=== PATIENT | male | born 1935 | race Caucasian/White ===

== ENCOUNTER 2019-12-29 05:56 | Inpatient (IN) | payer MEDICARE, BC ==
[~2019-12-29] VITALS: Ht 180.3 cm; Wt 100.0 kg
[2019-12-29] MEDS ORDERED: FINA5TAB2 PO (06:30)
[2019-12-29] MEDS ORDERED: CENT1TAB PO (06:30)
[2019-12-29] MEDS ORDERED: PREG100CA PO (06:30)
[2019-12-29] MEDS ORDERED: METO1TAB7 PO (06:30)
[2019-12-29] MEDS ORDERED: ASPI81TA86 PO (06:30)
[2019-12-29] MEDS ORDERED: ALBU83IN NEB (06:30)
[2019-12-29] MEDS ORDERED: ELIQ2.5T PO (06:30)
[2019-12-29] MEDS ORDERED: FURO20TA2 PO (06:30)
[2019-12-29] MEDS ORDERED: LEVO112T2 PO (06:30)
[2019-12-29] MEDS ORDERED: ALLO10TA PO (06:30)
[2019-12-29] MEDS ORDERED: KLOR10TA76 PO (06:30)
[2019-12-29] MEDS ORDERED: IRBE75TA4 PO (06:30)
[2019-12-29] MEDS ORDERED: SIMV20TA22 PO (06:30)
[2019-12-29 07:16] LABS: BASO # 0.1 10^3/uL (0.0-0.2); BASO % 0.3 % (0.0-1.0); EOS # 0.1 10^3/uL (0.0-0.5); EOS % 0.4 % (0.0-3.0); HEMATOCRIT 34.9 % (42.0-52.0); HEMOGLOBIN 11.5 g/dl (13.5-17.5); LYMPH # 1.3 10^3/uL (1.5-5.0); LYMPH % 7.2 % (24.0-44.0); MEAN CORPUSCULAR HEMOGLOBIN 31.8 pg (27.0-33.0); MEAN CORPUSCULAR VOLUME 96.4 fl (80.0-96.0); MONO # 0.9 10^3/uL (0.0-0.8); MONO % 5.2 % (0.0-5.0); NEUTROPHILS # 15.2 10^3/uL (1.5-8.5); NEUTROPHILS % 86.2 % (36.0-66.0); PLATELET COUNT, AUTOMATED 163 10^3/uL (150-450); RED BLOOD COUNT 3.62 10^6/uL (4.30-6.10); WHITE BLOOD COUNT 17.6 10^3/uL (4.0-10.0)
[2019-12-29 07:18] LABS: ALBUMIN 3.5 GM/DL (3.2-5.2); BILIRUBIN,DIRECT 0.4 MG/DL (0.0-0.2); CALCIUM LEVEL 9.3 MG/DL (8.8-10.2); CREATININE FOR GFR 1.44 MG/DL (0.70-1.30); GLOMERULAR FILTRATION RATE 49.5 (>35); POTASSIUM SERUM 4.2 MEQ/L (3.5-5.1); TOTAL PROTEIN 7.5 GM/DL (6.4-8.2)
[2019-12-29] MEDS: LEVOTHYROXINE 112MCG TABLET (0.112MG) PO SCH (09:00)
[2019-12-29] MEDS ORDERED: cefTRIAXone SOD 2 GM in D5W MINI-BAG PLUS 50 ML IV ONE (10:00)
--- NOTE | 2019-12-29 10:05 | REPVR ---
PROCEDURE INFORMATION: Exam: XR Chest, 1 View Exam date and time: 12/29/2019 9:12 AM Age: 84 years old Clinical indication: Shortness of breath; Additional info: Dyspnea/cough TECHNIQUE: Imaging protocol: XR of the chest Views: 1 view. COMPARISON: No relevant prior studies available. FINDINGS: Tubes, catheters and devices: A left-sided pacemaker is present. Lungs: There is some retrocardiac atelectasis or infiltrate. The lungs are otherwise clear. Pleural space: Unremarkable. No pleural effusion. No pneumothorax. Heart/Mediastinum: Unremarkable. No cardiomegaly. Vasculature: The aorta is tortuous. Atherosclerotic vascular calcifications are noted. Bones/joints: Median sternotomy wires are present. Degenerative changes involve the spine and shoulders. IMPRESSION: Retrocardiac atelectasis or infiltrate. Electronically signed by: lCark Francis On 12/29/2019 10:04:52 AM
[2019-12-29] MEDS ORDERED: ELIQ5TAB PO (10:46)
[2019-12-29] MEDS ORDERED: ZYLO300T6 PO (10:46)
[2019-12-29] MEDS ORDERED: FISH1000 PO (10:46)
[2019-12-29 12:20] VITALS: BP 131/65
[2019-12-29] MEDS: SIMVASTATIN 20 MG TAB PO SCH (12:59)
[2019-12-29] MEDS: APIXABAN 2.5 MG TAB (ELIQUIS) PO SCH ×2 (12:59→21:14)
[2019-12-29] MEDS: PREGABALIN 100 MG CAP (LYRICA) PO SCH (12:59)
[2019-12-29] MEDS: metroNIDAZOLE 500 MG in IV 1 EA IV SCH ×2 (12:59→21:14)
[2019-12-29] MEDS: ASPIRIN 81 MG ENTERIC TAB PO SCH (12:59)
[2019-12-29] MEDS: MULTIVITAMINS/MINERALS THERAP 1 TAB PO SCH (13:00)
[2019-12-29] MEDS: METOPROLOL SUCC (TopROL XL) 50MG **XL** TAB PO SCH (13:00)
[2019-12-29] MEDS: FINASTERIDE 5 MG TAB PO SCH (13:00)
[2019-12-29 13:01] LABS: THYROID STIMULATING HORMONE 0.522 uIU/ML (0.358-3.740)
[2019-12-29 14:00] VITALS: BP 165/75
[2019-12-29] MEDS ORDERED: VANCOMYCIN HCL 1,000 MG, VIAL MATE ADAPTER 1 EACH in D5W 250 ML IV ONE (14:00)
[2019-12-29] MEDS: VANCOMYCIN HCL 1,000 MG, VIAL MATE ADAPTER 1 EACH in D5W 250 ML IV SCH (14:09)
--- NOTE | 2019-12-29 14:28 | HPEPDOC ---
General Date of Admission Dec 29, 2019 at 10:34 Date of Service: Dec 29, 2019 Chief Complaint The patient is a 84-year-old male admitted with a reason for visit of Pneumonia. Source: Patient Timing/Duration: Day(s) Severity: Mild, Moderate Associated Symptoms: Cough, Chills, Loss of appetite, Malaise, Dizziness History of Present Illness Patient is a 84 yo male with PMH of HTN and recurrent PNA who moved from [place] to [place] 2 weeks ago was brought to [facility] due to 2-3 days of productive cough with yellow sputum and chills as well as fatigue, decreased appetite, nausea, lightheadedness/dizziness with a fall at home this morning. Patient was hospitalized in [place] around 1.5 month ago for pneumonia requiring IV abx treatment, daughter at bedside reported she thought it may have been aspiration pneumonia but she is unsure. Worsening productive cough with yellow sputum started 2-3 days ago without sick contact with congestion, denies dyspnea. Reported chills but no fever. Has nausea and decreased appetite but no vomiting. Denies any chest pain or palpitation. No pets at home but daughter has a cat. Patient was reported to be tested negative in [place] prior to moving to [place]. Pt was reported to have an episode of chest pain yesterday but resolved, and pt denies any current chest pain. Increase fatigue and pt slept almost whole day yesterday. Patient had a fall around 4-5AM this morning at home when he was trying to walk to bathroom in a dark room, he reported increased lightheadedness/dizziness after he stood up. He fell and reported hitting his mid-back and superior occipital region. He reported no headache but reported thoracic spine region pain after the fall. Denies loss of consciousness, and pt was reported to not to be confused. He uses a walker at baseline and was reported to be using a walker at the time he walks to the restroom. Patient was reported to have some dysphagia at baseline starting a few years ago with no clear underlying etiology workup at this time. Pt was reported to have a "mini-stroke" per daughter a few years ago but daughter think it was unrelated to the dysphagia. Home Medications Scheduled Albuterol Sulf (Albuterol Sulfate) 2.5 Mg/3 Ml Vial.neb, 1 VIAL NEB BID, (Reported) Allopurinol (Zyloprim) 300 Mg Tablet, 300 MG PO DAILY, (Reported) Apixaban (Eliquis) 5 Mg Tablet, 2.5 MG PO BID, (Reported) Aspirin (Aspir 81) 81 Mg Tablet.dr, 81 MG PO DAILY, (Reported) Cefepime in Iso-Osm Dextrose (Cefepime 2 gm Injection) 2 Gm/100 Ml Froz.piggy, 2 GM IV Q8H Finasteride (Finasteride) 5 Mg Tablet, 5 MG PO DAILY, (Reported) Furosemide (Furosemide) 20 Mg Tablet, 20 MG PO DAILY, (Reported) Irbesartan (Irbesartan) 75 Mg Tablet, 37.5 MG PO DAILY, (Reported) Levothyroxine Sodium (Levothyroxine Sodium) 112 Mcg Tablet, 112 MCG PO DAILY, (Reported) Metoprolol Succinate (Metoprolol Succinate) 50 Mg Tab.er.24h, 50 MG PO DAILY, (Reported) Multivit-Min/FA/Lycopen/Lutein (Centrum Silver Tablet) 1 Each Tablet, 1 TAB PO DAILY, (Reported) [place]-3 Fatty Acids/Fish Oil (Fish Oil 1,000 mg Capsule) 1 Each Capsule, 1,000 MG PO TID, (Reported) Potassium Chloride (Klor-Con M10) 10 Meq Tab.er.prt, 10 MEQ PO DAILY, (Reported) Pregabalin (Lyrica) 100 Mg Capsule, 100 MG PO DAILY, (Reported) Simvastatin (Simvastatin) 20 Mg Tablet, 20 MG PO DAILY, (Reported) Tamsulosin HCl (Flomax) 0.4 Mg Capsule, 0.4 MG PO DAILY Scheduled PRN Acetaminophen (Acetaminophen) 325 Mg Tablet, 650 MG PO Q4HP PRN for PAIN OR FEVER Allergies Coded Allergies: No Known Allergies (Unverified , 12/29/19) Past Medical History Medical History Prostate Ca A.fib CHF Coronary artery disease s/p triple by-pass Recurrent pneumonia HTN TIA AAA Spinal stenosis Broken wrist ?cholecystitis(hx of cholescystectomy, daughter reported gallbladder infection hx leading to sepsis prior) Bladder malignancy in remission s/p chemotherapy in 2018 A. fib on anticoagulation Surgical History Cataract surgery 2004 TURP 2005 Open heart triple bypass 2006 Abdominal aneurysm surgery 2007-Dr. Zeke Disla Back surgery for spinal stenosis 2008 Prostate biopsy 2008 Colonoscopy 2009 Broken wrist repair 2011-Dr. Win Cholescystectomy 2011 Heart monitor implanted 2012 Heart monitor removed, pacemaker implanted [address] Gabriel Social History * Smoker: former Smoker (reported to quit 5-10 years ago) Alcohol: Denies Drugs: denies Pets in the home: Other (None at home, daugther has a cat but does not live with pt) Moves from [place] recently, lives with now A-FIB/CHADSVASC A-FIB History Current/History of A-Fib/PAF?: Yes Current PO Anticoag Therapy: Yes Age/Risk Factor Scoring CHADSVASC: CHADSVASC Response (Comments) Value Age Risk Factor Age >/= 75 years old 2 Gender Risk Factor Male 0 Hx of CHF Yes 1 Hx of HTN Yes 1 Hx of Stroke/TIA/or VTE Yes 2 Hx of Diabetes No 0 Total 6 Review of Systems Constitutional: Reports: Chills, Weakness (Generalized), Fatigue; Denies: Fever ENT: Reports: Dysphagia; Denies: Head Aches Pulmonary: Reports: Cough; Denies: Dyspnea Cardiovascular: Denies: Chest Pain, Palpitations Gastrointestinal: Reports: Nausea; Denies: Vomiting, Abdominal Pain Musculoskeletal: Reports: Back Pain Neurological: Denies: Change in speech, Confusion Physical Examination General Exam: Positive: Alert, Cooperative, No Acute Distress Eye Exam: Positive: Conjunctiva & lids normal, EOMI; Negative: Sclera icteric, Ptosis ENT Exam: Positive: Mucous membr. moist/pink Neck Exam: Positive: Supple Chest Exam: Positive: Normal air movement, Rales (Bilateral, mod to severe, throughout); Negative: Clear to auscultation, Wheezing Heart Exam: Positive: Rate Normal, Regular Rhythm, Normal S1, Normal S2; Negative: Murmurs Abdomen Exam: Positive: Normal bowel sounds, Soft; Negative: Tenderness Extremity Exam: Negative: Edema, Swelling Skin Exam: Positive: Nl turgor and temperature Neuro Exam: Positive: Normal Speech, Strength at 5/5 X4 ext, Normal Tone, Cranial Nerves 3-12 NL Psych Exam: Positive: Mental status NL, Mood NL, Memory Intact, Oriented x 3 Vital Signs Vital Signs Date Time Temp Pulse Resp B/P (MAP) Pulse Ox O2 Delivery O2 Flow Rate FiO2 12/29/19 13:00 64 131/65 12/29/19 12:20 98.6 18 94 Room Air Laboratory Data Labs 24H Laboratory Tests 2 12/29/19 06:59: Immature Granulocyte % (Auto) 0.7, Neutrophils (%) (Auto) 86.2H, Lymphocytes (%) (Auto) 7.2L, Monocytes (%) (Auto) 5.2H, Eosinophils (%) (Auto) 0.4, Basophils (%) (Auto) 0.3, Neutrophils # (Auto) 15.2H, Lymphocytes # (Auto) 1.3L, Monocytes # (Auto) 0.9H, Eosinophils # (Auto) 0.1, Basophils # (Auto) 0.1, Nucleated Red Blood Cells % (auto) 0.0, Anion Gap 5L, Glomerular Filtration Rate 49.5, Lactic Acid Level 1.2, Calcium Level 9.3, Total Bilirubin 1.0, Direct Bilirubin 0.4H, Aspartate Amino Transf (AST/SGOT) 26, Alanine Aminotransferase (ALT/SGPT) 23, Alkaline Phosphatase 92, UH-Yxr-H-Type Natriuretic Peptide 1590H, Total Protein 7.5, Albumin 3.5, Albumin/Globulin Ratio 0.9, Thyroid Stimulating Hormone (TSH) 0.522 12/29/19 08:18: CBC/BMP Laboratory Tests 12/29/19 06:59 Microbiology Microbiology 12/29/19 Blood Culture, Received Pending 12/29/19 Blood Culture, Received Pending 12/29/19 Respiratory Virus Panel (PCR) ([facility]) - Final, Complete Assessment/Plan Patient is a 84 yo male with PMH of recurrent PNA, CAD, a. fib with pacemaker on eliquis as well as reported dysphagia for years who recently moved from [place] with hospitalization 1.5 month ago for PNA presented with 2-3 days of productive cough with chills and fatigue with a fall this morning reported to be due to lightheadedness and dizziness after standing up from bed presented to [facility] found to have retrocardic infiltrate admitted for healthcare associated pneumonia. 1. Stas care associated pneumonia and/or aspiration pneumonia. Productive cough with chills and fatigue, leukocytosis. Diffuse crackles aus in b/l lung field with congestion. Pt sat well on RA. Reported hospitalization about 1.5 month ago for pneumonia for which daughter thought it was likely aspiration pneumonia. Hx of dysphagia for years per daughter. Sputum cx ordered. Start empiric therapy with Vanco, Cefepime, and Metronidazole. Oxygen therapy, elevated head of bed, vital signs. ABG. Inhalers PRN. Procalcitonin ordered. Episode of chest pain likely pleuritis vs musculoskeletal from excessive coughing. Cardiac marker unremarkableX1 without ST elevation noted on tele, repeatX2. 2. Fall likely 2/2 dizziness associated with pneumonia, r/o orthostatic hypotension. Fall this morning around 4-5 AM reported, pt hit superior occpital region without current headache. CN2-12 intact, strength+5/5 in all 4 extremities. Pt also reported hitting mid-back with current thoracic region back pain. Head CT without contrast and thoracic spine X ray stat ordered. Fall precaution. PT/OT. Orthostatic vital sign 3. Dysphagia. Dysphagia reported to be present for years. Pt reported to have a "mini-stroke" years ago and daughter thought the dysphagia was unrelated to the mini-stroke. ST bedside swallow, NPO except for meds for now until passing swallow study. 4. TRISTEN, likely pre-renal from decreased oral intake from decreased appetite. Creatinine elevated at 1.44 with GFR 49.5. Daughter reported no prior hx of kidney disease. Will hold off on starting IV fluid as patient has elevated BOQ=[id number]. Recheck BMP tmrw AM. Hold home lasix and ARB d/t TRISTEN 5. A.fib. Cont home med eliquis. Cont home med metoprolol with holding parameters 6. CHF. PMH of CHF reported without specification of specific type(i.e systolic and/or diastolic). BNP only mildly elevated without lower extremity edema. Hold home med Lasix for now for TRISTEN. 7. PMH of Coronary artery disease s/p triple bypass. Cont home med Aspirin, Statin, metoprolol with holding parameters. Hold home med ARB 8. HTN. Cont home med Metoprolol with holding parameters. Vital signs Q4H. Dispo: 84 yo with hx of recurrent PNA presented with productive cough and fall from dizziness admitted with HAP/aspiration pneumonia also reported to have dysp hagia getting ST/PT/OT on fall precaution, head CT and thoracic spine X spine ordered as pt reported hitting head and mid-back; no neurological deficits Plan / VTE VTE Prophylaxis Ordered?: Yes (eliquis) Plan IVF: Initiate GME ATTESTATION GME ATTESTATION My faculty preceptor for this patient encounter was physically present during the encounter and was fully available. All aspects of the patient interview, examination, medical decision making process, and medical care plan development were reviewed and approved by the faculty preceptor. The faculty preceptor is aware and concurs with the plan as stated in the body of this note and will attest to such by his/her cosignature. ATTENDING NOTE Pt was seen and examined by me personally with the residents/students. Agree with the above assessment plan. MOLLY PIERCE DO Dec 29, 2019 13:55 HAIDER ARSHAD MD Jan 06, 2020 10:30
[2019-12-29] MEDS: ACETAMINOPHEN TAB 650MG DOSE (2X325MG) PO PRN (14:46)
--- NOTE | 2019-12-29 15:28 | REPVR ---
PROCEDURE INFORMATION: Exam: CT Head Without Contrast Exam date and time: 12/29/2019 3:08 PM Age: 84 years old Clinical indication: Pain; Headache; Other: Fall; Additional info: Fall reported hitting occipital region TECHNIQUE: Imaging protocol: Computed tomography of the head without contrast. Radiation optimization: All CT scans at this facility use at least one of these dose optimization techniques: automated exposure control; mA and/or kV adjustment per patient size (includes targeted exams where dose is matched to clinical indication); or iterative reconstruction. COMPARISON: No relevant prior studies available. FINDINGS: Brain: Symmetric prominence of the cortical sulci. Small-vessel ischemic change. No acute post-traumatic brain injury. Ventricles: Normal configuration of the ventricles. Bones/joints: No acute calvarial injury. Paranasal sinuses: Trace left maxillary sinus fluid. Mastoid air cells: No mastoid effusion. Vasculature: Vascular and dural calcification. Soft tissues: No significant scalp hematoma. IMPRESSION: No acute post-traumatic brain injury. Electronically signed by: Tio Chatman On 12/29/2019 15:28:04 PM
[2019-12-29 16:26] LABS: CK-MB VALUE MASS 1.5 NG/ML (<3.6); CPK CREATINE PHOSPHOKINASE 118 U/L (39-308); MB/CK RELATIVE INDEX 1.27 (< OR =4); TROPONIN I < 0.02 NG/ML (< 0.10)
--- NOTE | 2019-12-29 17:42 | REPVR ---
PROCEDURE INFORMATION: Exam: XR Thoracic Spine, 3 Views Exam date and time: 12/29/2019 2:37 PM Age: 84 years old Clinical indication: Pain in thoracic spine; Additional info: Fall reported hitting thoracic spine TECHNIQUE: Imaging protocol: XR of the thoracic spine, 3 views. COMPARISON: No relevant prior studies available. FINDINGS: Vertebrae: Mild dextroscoliosis. The spine demonstrates moderate degenerative changes. Other bones/joints: Status post sternotomy. Soft tissues: Unremarkable. Heart/Mediastinum: Intact cardiac pacing wires demonstrated. IMPRESSION: Moderate degenerative changes in the thoracic spine with a shallow dextroscoliosis. No fracture demonstrated. Electronically signed by: Pablo Trujillo On 12/29/2019 17:42:33 PM
[2019-12-29 18:00] VITALS: BP 111/56
[2019-12-29] MEDS: CEFEPIME HCL 1 GM in D5W MINI-BAG PLUS 50 ML IV SCH (18:03)
[2019-12-29 18:55] LABS: ABG BASE EXCESS -0.8 (-2.0-2.0); ABG HCO3 22.5 MEQ/L (22.0-26.0); ABG PARTIAL PRESSURE CO2 33.1 mmHg (35.0-45.0); ABG PARTIAL PRESSURE O2 66.9 mmHg (75.0-100.0); ABG STANDARD HCO3 23.7 MEQ/L (22.0-26.0); ABG TOTAL CO2 23.6 MEQ/L (23.0-31.0); ABG pH (ARTERIAL) 7.451 UNITS (7.350-7.450)
[2019-12-29 20:26] LABS: CK-MB VALUE MASS 1.1 NG/ML (<3.6); MB/CK RELATIVE INDEX 0.83 (< OR =4); TROPONIN I 0.02 NG/ML (< 0.10)
[2019-12-29 22:00] VITALS: BP 98/53
[2019-12-29 22:15] VITALS: BP 112/54
[2019-12-30 00:42] LABS: CK-MB VALUE MASS < 1.0 NG/ML (<3.6); CPK CREATINE PHOSPHOKINASE 151 U/L (39-308); MB/CK RELATIVE INDEX 0.66 (< OR =4); TROPONIN I < 0.02 NG/ML (< 0.10)
[2019-12-30 02:00] VITALS: BP 107/52
[2019-12-30] MEDS: ACETAMINOPHEN TAB 650MG DOSE (2X325MG) PO PRN ×3 (02:19→22:04)
[2019-12-30] MEDS: metroNIDAZOLE 500 MG in IV 1 EA IV SCH ×3 (04:06→19:57)
[2019-12-30] MEDS: CEFEPIME HCL 1 GM in D5W MINI-BAG PLUS 50 ML IV SCH ×2 (05:18→18:13)
[2019-12-30 06:00] VITALS: BP 106/52
[2019-12-30 06:27] LABS: HEMATOCRIT 34.3 % (42.0-52.0); MEAN CORPUSCULAR HEMOGLOBIN 31.2 pg (27.0-33.0); MEAN CORPUSCULAR HGB CONC 32.1 g/dl (32.0-36.5); MEAN CORPUSCULAR VOLUME 97.2 fl (80.0-96.0); PLATELET COUNT, AUTOMATED 144 10^3/uL (150-450); RED BLOOD COUNT 3.53 10^6/uL (4.30-6.10); WHITE BLOOD COUNT 14.5 10^3/uL (4.0-10.0)
[2019-12-30 07:17] LABS: CALCIUM LEVEL 8.5 MG/DL (8.8-10.2); CREATININE FOR GFR 1.42 MG/DL (0.70-1.30); GLOMERULAR FILTRATION RATE 50.3 (>35); POTASSIUM SERUM 3.8 MEQ/L (3.5-5.1)
[2019-12-30] MEDS: ASPIRIN 81 MG ENTERIC TAB PO SCH (08:24)
[2019-12-30] MEDS: MULTIVITAMINS/MINERALS THERAP 1 TAB PO SCH (08:25)
[2019-12-30] MEDS: SIMVASTATIN 20 MG TAB PO SCH (08:25)
[2019-12-30] MEDS: FINASTERIDE 5 MG TAB PO SCH (08:25)
[2019-12-30] MEDS: PREGABALIN 100 MG CAP (LYRICA) PO SCH (08:25)
[2019-12-30] MEDS: APIXABAN 2.5 MG TAB (ELIQUIS) PO SCH ×2 (08:25→19:57)
[2019-12-30] MEDS: METOPROLOL SUCC (TopROL XL) 50MG **XL** TAB PO SCH (08:25)
[2019-12-30] MEDS: NS 1,000 ML IV SCH (08:31)
[2019-12-30] MEDS ORDERED: VARIBAR PUDDING 40% w/v 230ML TUBE As Ordered ONE (08:49)
[2019-12-30] MEDS ORDERED: BARIUM SULFATE 700 MG TABLET (E-Z-DISK) As Ordered ONE (08:49)
[2019-12-30] MEDS ORDERED: E-Z-PAQUE 96% w/w SUSP 176GM BTL As Ordered ONE (08:49)
[2019-12-30] MEDS ORDERED: VARIBAR NECTAR 40% w/v 240ML SUSP BTL As Ordered ONE (08:49)
[2019-12-30] MEDS: LEVOTHYROXINE 112MCG TABLET (0.112MG) PO SCH (10:34)
--- NOTE | 2019-12-30 11:42 | IPNPDOC ---
Date Seen The patient was seen on 12/30/19. Progress Note SUBJECTIVE: patient was seen and examined at bedside today. He feels comfortable in bed, states that he slept well. Good appetite. Febrile overnight, Tmax 100.4. Having some mild cough. Denies chills, chest pain, palpitations. No sputum overnight. OBJECTIVE PHYSICAL EXAMINATION: General: comfortable, speaking full sentences HEENT: PERRLA, EOMI, sclerae clear VITAL SIGNS: Please see below. Neck: supple, normal ROM, no JVD Resp: lungs CTAB, no wheeze, no rales, no crackles CVS: RRR, normal S1, S2, no murmurs Abdo: soft, no masses, no hepatosplenomegaly, BS+, no rebound tenderness Extremities: no edema, pulses 2+ MSK: no joint deformities, normal ROM Neuro: no focal neuro deficits, moving all 4 extremities Psych: calm, cooperative, AAO x 3 LABORATORY DATA, IMAGING STUDIES, MICROBIOLOGY: Please see below. DVT prophylaxis ordered?: Y, on eliquis ASSESSMENT AND PLAN: 84 yo M with a hx PMHx of afib, HF, prostate ca, bladder ca, CAD (s/p CABG), TIA, AAA, HTN, admitted to [facility] for management of HAP vs aspiration pna. Presently on IV abx (vanc,cefepime, flagyl), with INSTALLER SOFT TOP evaluation. Will likely require rehab on DC. PROBLEMS: 1. Aspiration pna - infiltrate on CXR - likely aspiration from hx of dysphagia - WBC count trending down - sputum Cx, Bcx pending. Sputum gram stain polymicrobial - MRSA screen + - vanc, cefepime, flagyl (12/29/19) - HOB elevation - monitor for fevers Fall - likely 2/2 depletion vs orthostasis - CT head, c-spine without acute findings - check orthostats - PT/OT, will need rehab, ARU eval pending Dysphagia - highly suspected given recurrent aspiration pna - possible hx of TIA? - INSTALLER SOFT TOP eval: mild pharyngeal phase dysphagia, recommend level 2 solids with thin liqs. No aspiration on barium swallow. TRISTEN - appears volume depleted, likely pre-renal - BNP elevated, ~1500, given age likely baseline - will provide controlled IV hydration, repeat BMP - resume ARB/lasix once hydrated Afib - home metoprolol - eliquis CHF - appears volume depleted - metoprolol - resume lasix given tristen CAD - s/p cabg - c/w asa/statin - c/w ARB/BB HTN - BP controlled - home meds DISPOSITION: likely rehab on DC. ARU screening pending. VS, I&O, 24H, Fishbone Vital Signs/I&O Vital Signs Date Time Temp Pulse Resp B/P (MAP) Pulse Ox O2 Delivery O2 Flow Rate FiO2 12/30/19 08:25 66 106/52 12/30/19 06:00 99.0 18 94 Room Air I&O- Last 24 Hours up to 6 AM 12/30/19 05:59 Intake Total 1490 ml Output Total 1400 ml Balance 90 ml Laboratory Data 24H LABS Laboratory Tests 2 12/29/19 15:32: Total Creatine Kinase 118, Creatine Kinase MB 1.5, Creatine Kinase MB Relative Index 1.27, Troponin I < 0.02 12/29/19 18:11: Methicillin-Resist S.aureus DNA PCR DETECTEDA 12/29/19 18:36: Total Creatine Kinase 133, Creatine Kinase MB 1.1, Creatine Kinase MB Relative Index 0.83, Troponin I 0.02 12/29/19 18:43: Blood Gas Bicarbonate Standard 23.7, Arterial Blood pH 7.451H, Arterial Blood Partial Pressure CO2 33.1L, Arterial Blood Partial Pressure O2 66.9L, Arterial Blood Total CO2 23.6, Arterial Blood HCO3 22.5, Arterial Blood Base Excess -0.8, Arterial Blood Oxygen Saturation 94.0L 12/29/19 23:45: Total Creatine Kinase 151, Creatine Kinase MB < 1.0, Creatine Kinase MB Relative Index 0.66, Troponin I < 0.02 12/30/19 05:44: Nucleated Red Blood Cells % (auto) 0.0, Anion Gap 7L, Glomerular Filtration Rate 50.3, Calcium Level 8.5L CBC/BMP Laboratory Tests 12/30/19 05:44 Microbiology Microbiology 12/29/19 Gram Stain - Final, Resulted 12/29/19 Sputum Culture, Resulted Pending 12/29/19 Blood Culture - Preliminary, Resulted No growth after 24 hours . All specim... 12/29/19 Blood Culture - Preliminary, Resulted No growth after 24 hours . All specim... 12/29/19 Respiratory Virus Panel (PCR) ([facility]) - Final, Complete POLINKEVYCH,JACIEL MD Dec 30, 2019 11:42
[2019-12-30 14:00] VITALS: BP 148/87
[2019-12-30] MEDS: VANCOMYCIN HCL 1,000 MG, VIAL MATE ADAPTER 1 EACH in D5W 250 ML IV SCH (14:25)
[2019-12-30 21:00] VITALS: BP_SYST 127; BP_SYST 130; BP_SYST 99; BP_DIAS 56; BP_DIAS 60; BP_DIAS 62
[2019-12-30 22:00] VITALS: BP 127/60
[2019-12-31 02:00] VITALS: BP 120/58
[2019-12-31] MEDS: metroNIDAZOLE 500 MG in IV 1 EA IV SCH ×3 (04:13→20:21)
[2019-12-31] MEDS: CEFEPIME HCL 1 GM in D5W MINI-BAG PLUS 50 ML IV SCH ×2 (05:31→17:49)
[2019-12-31 06:00] VITALS: BP 118/64
[2019-12-31] MEDS: NS 1,000 ML IV SCH ×3 (06:20→20:21)
--- NOTE | 2019-12-31 07:22 | IPNPDOC ---
Date Seen The patient was seen on 12/31/19. Progress Note SUBJECTIVE: patient was seen and examined at bedside today. He feels comfortable in bed, states that he slept well. Good appetite. Afebrile overnight, last fever evening prior. Per RN, retainin urine, required straight catheterization. Placed dent. Having some mild cough. Denies chills, chest pain, palpitations. No sputum overnight. OBJECTIVE PHYSICAL EXAMINATION: General: comfortable, speaking full sentences HEENT: PERRLA, EOMI, sclerae clear VITAL SIGNS: Please see below. Neck: supple, normal ROM, no JVD Resp: lungs CTAB, no wheeze, no rales, no crackles CVS: RRR, normal S1, S2, no murmurs Abdo: soft, no masses, no hepatosplenomegaly, BS+, no rebound tenderness Extremities: no edema, pulses 2+ MSK: no joint deformities, normal ROM Neuro: no focal neuro deficits, moving all 4 extremities Psych: calm, cooperative, AAO x 3 LABORATORY DATA, IMAGING STUDIES, MICROBIOLOGY: Please see below. DVT prophylaxis ordered?: Y, on eliquis ASSESSMENT AND PLAN: 84 yo M with a hx PMHx of afib, HF, prostate ca, bladder ca, CAD (s/p CABG), TIA, AAA, HTN, admitted to [facility] for management of HAP vs aspiration pna. Presently on IV abx (vanc,cefepime, flagyl), with PLATFORM CONSULTANT debra luation. Will likely require rehab on DC. PROBLEMS: 1. Aspiration pna - infiltrate on CXR - likely aspiration from hx of dysphagia - WBC count trending down - Bcx pending. - Sputum culture + Pseudomonas, sens to cefepime - MRSA screen + - vanc, cefepime, flagyl (12/29/19) - avoid aminoglycoside at this time to TRISTEN - HOB elevation - monitor for fevers Fall - likely 2/2 depletion vs orthostasis - CT head, c-spine without acute findings - check orthostats - positive - PT/OT, will need rehab, ARU eval pending Dysphagia - highly suspected given recurrent aspiration pna - possible hx of TIA? - PLATFORM CONSULTANT eval: mild pharyngeal phase dysphagia, recommend level 2 solids with thin liqs. No aspiration on barium swallow. TRISTEN - appears volume depleted, likely pre-renal - check FeNA - possibly 2/2 retention - BNP elevated, ~1500, given age likely baseline - will provide controlled IV hydration, repeat BMP - resume ARB/lasix once hydrated Urinary Retention - check FeNa - dent cath x 48 hrs, repeat trial void - obtain renal US with resistive indices, assess for hydronephrosis Afib - home metoprolol - eliquis - has pacemaker, needs battery replacement (window 0-6 mo) - discussed with Dr. Llanos, will see patient in clinic on DC. CHF - appears volume depleted - metoprolol - resume lasix given tristen CAD - s/p cabg - c/w asa/statin - c/w ARB/BB HTN - BP controlled - home meds DISPOSITION: likely rehab on DC. ARU screening pending. VS, I&O, 24H, Fishbone Vital Signs/I&O Vital Signs Date Time Temp Pulse Resp B/P (MAP) Pulse Ox O2 Delivery O2 Flow Rate FiO2 12/31/19 06:00 98.1 68 22 118/64 (82) 96 Room Air I&O- Last 24 Hours up to 6 AM 12/31/19 05:59 Intake Total 200 ml Output Total 1500 ml Balance -1300 ml Laboratory Data Microbiology Microbiology 12/29/19 Gram Stain - Final, Complete 12/29/19 Sputum Culture - Final, Complete Pseudomonas Aeruginosa 12/29/19 Blood Culture - Preliminary, Resulted No growth after 24 hours . All specim... 12/29/19 Blood Culture - Preliminary, Resulted No growth after 24 hours . All specim... 12/29/19 Respiratory Virus Panel (PCR) ([facility]) - Final, Complete JACIEL ELISE MD Dec 31, 2019 07:22
[2019-12-31 07:26] LABS: HEMATOCRIT 33.8 % (42.0-52.0); HEMOGLOBIN 10.9 g/dl (13.5-17.5); MEAN CORPUSCULAR HEMOGLOBIN 31.4 pg (27.0-33.0); MEAN CORPUSCULAR HGB CONC 32.2 g/dl (32.0-36.5); MEAN CORPUSCULAR VOLUME 97.4 fl (80.0-96.0); PLATELET COUNT, AUTOMATED 149 10^3/uL (150-450); RED BLOOD COUNT 3.47 10^6/uL (4.30-6.10); WHITE BLOOD COUNT 11.4 10^3/uL (4.0-10.0)
[2019-12-31 07:40] LABS: BLOOD UREA NITROGEN 34 MG/DL (7-18); CALCIUM LEVEL 8.5 MG/DL (8.8-10.2); CARBON DIOXIDE LEVEL 24 MEQ/L (21-32); CHLORIDE LEVEL 112 MEQ/L (98-107); CREATININE FOR GFR 1.13 MG/DL (0.70-1.30); GLOMERULAR FILTRATION RATE > 60.0 (>35); GLUCOSE, FASTING 96 MG/DL (70-100); POTASSIUM SERUM 3.7 MEQ/L (3.5-5.1); SODIUM LEVEL 142 MEQ/L (136-145)
[2019-12-31] MEDS: PREGABALIN 100 MG CAP (LYRICA) PO SCH (07:56)
[2019-12-31] MEDS: MULTIVITAMINS/MINERALS THERAP 1 TAB PO SCH (07:56)
[2019-12-31] MEDS: METOPROLOL SUCC (TopROL XL) 50MG **XL** TAB PO SCH (07:57)
[2019-12-31] MEDS: ASPIRIN 81 MG ENTERIC TAB PO SCH (07:58)
[2019-12-31] MEDS: APIXABAN 2.5 MG TAB (ELIQUIS) PO SCH ×2 (07:58→20:21)
[2019-12-31] MEDS: SIMVASTATIN 20 MG TAB PO SCH (07:58)
[2019-12-31] MEDS: ACETAMINOPHEN TAB 650MG DOSE (2X325MG) PO PRN (07:58)
[2019-12-31] MEDS: FINASTERIDE 5 MG TAB PO SCH (07:59)
[2019-12-31] MEDS: LEVOTHYROXINE 112MCG TABLET (0.112MG) PO SCH (08:00)
[2019-12-31] MEDS ORDERED: FLUBLOK(EGG FREE)(QUAD)INFLUENZA VACC 0.5ML SYRINGE 18YRS & OLDER IM ONE (09:00)
[2019-12-31 10:00] VITALS: BP 122/65
[2019-12-31 11:07] LABS: VANCOMYCIN RANDOM 12.5 UG/ML
[2019-12-31] MEDS: TAMSULOSIN 0.4 MG CAP PO SCH (11:08)
--- NOTE | 2019-12-31 11:31 | ECGEPIP ---
[facility] - ED Test Date: 2019-12-29 Pat Name: ELIZABETH DEWEY Department: Room: - Gender: Male [employer] Member: NR : [id number] Requested By: Aleksandar Morfin Order Number: [id number] Reading MD: Aleksandar Cheema Measurements Intervals [place] Rate: 66 P: AL: 0 QRS: -58 QRSD: 160 T: 84 QT: 454 QTc: 477 Interpretive Statements ATRIAL FIBRILLATION ELECTRONIC VENTRICULAR PACEMAKER -- CONTOUR ANALYSIS BASED ON INTRINSIC RHYTHM RIGHT BUNDLE BRANCH BLOCK LEFT ANTERIOR FASCICULAR BLOCK POSSIBLE SEPTAL MYOCARDIAL INFARCTION, OF INDETERMINATE AGE MODERATE T-WAVE ABNORMALITY, CONSIDER LATERAL ISCHEMIA NO PRIORS FOR COMPARISON Electronically Signed on 12-31-2019 11:31:26 EDT by Aleksandar Cheema
[2019-12-31] MEDS: VANCOMYCIN HCL 1,000 MG, VIAL MATE ADAPTER 1 EACH in D5W 250 ML IV SCH (11:46)
[2019-12-31 14:00] VITALS: BP 119/66
[2019-12-31 22:00] VITALS: BP 134/68
[2020-01-01 02:00] VITALS: BP 121/62
[2020-01-01] MEDS: metroNIDAZOLE 500 MG in IV 1 EA IV SCH ×3 (04:26→21:15)
[2020-01-01] MEDS: VANCOMYCIN HCL 1,000 MG, VIAL MATE ADAPTER 1 EACH in D5W 250 ML IV SCH ×2 (05:46→22:39)
[2020-01-01 06:00] VITALS: BP 137/71
[2020-01-01] MEDS: CEFEPIME HCL 1 GM in D5W MINI-BAG PLUS 50 ML IV SCH ×2 (06:47→17:20)
--- NOTE | 2020-01-01 07:23 | IPNPDOC ---
Date Seen The patient was seen on 01/01/20. Progress Note SUBJECTIVE: patient was seen and examined at bedside today. He feels comfortable in bed, states that he slept well. Good appetite. Afebrile overnight (no fevers for 24 hours). Having some mild cough. Denies chills, chest pain, palpitations. No sputum overnight. OBJECTIVE PHYSICAL EXAMINATION: General: comfortable, speaking full sentences HEENT: PERRLA, EOMI, sclerae clear VITAL SIGNS: Please see below. Neck: supple, normal ROM, no JVD Resp: lungs CTAB, no wheeze, no rales, no crackles CVS: RRR, normal S1, S2, no murmurs Abdo: soft, no masses, no hepatosplenomegaly, BS+, no rebound tenderness Extremities: no edema, pulses 2+ MSK: no joint deformities, normal ROM Neuro: no focal neuro deficits, moving all 4 extremities Psych: calm, cooperative, AAO x 3 LABORATORY DATA, IMAGING STUDIES, MICROBIOLOGY: Please see below. DVT prophylaxis ordered?: Y, on eliquis ASSESSMENT AND PLAN: 84 yo M with a hx PMHx of afib, HF, prostate ca, bladder ca, CAD (s/p CABG), TIA, AAA, HTN, admitted to [facility] for management of HAP vs aspiration pna. Presently on IV abx (vanc,cefepime, flagyl), with INSTRUMENT MAKER AND REPAIRER evaluation. Will likely require rehab on DC. PROBLEMS: 1. Aspiration pna - infiltrate on CXR - likely aspiration from hx of dysphagia - WBC count trending down - Bcx pending, prelim negative - Sputum culture + Pseudomonas, sens to cefepime - MRSA screen + - vanc, cefepime, flagyl (12/29/19) - avoid aminoglycoside at this time to TRISTEN - HOB elevation - monitor for fevers Fall - likely 2/2 depletion vs orthostasis - CT head, c-spine without acute findings - check orthostats - positive - PT/OT, will need rehab, ARU eval pending Dysphagia - highly suspected given recurrent aspiration pna - possible hx of TIA? - INSTRUMENT MAKER AND REPAIRER eval: mild pharyngeal phase dysphagia, recommend level 2 solids with thin liqs. No aspiration on barium swallow. TRISTEN - resolved with IFV Urinary Retention - check FeNa - DC dent today (in place for 48 hrs), trial of void - PVR ordered - renal US - no hydronephrosis, no renal art stenosis. Bilateral renal cysts Afib - home metoprolol - eliquis - has pacemaker, needs battery replacement (window 0-6 mo) - discussed with Dr. Llanos, will see patient in clinic on DC. CHF - appears volume depleted - metoprolol - resume lasix given tristen CAD - s/p cabg - c/w asa/statin - c/w ARB/BB HTN - BP controlled - home meds DISPOSITION: likely rehab on DC. ARU screening pending. VS, I&O, 24H, Fishbone Vital Signs/I&O Vital Signs Date Time Temp Pulse Resp B/P (MAP) Pulse Ox O2 Delivery O2 Flow Rate FiO2 01/01/20 06:00 97.3 77 18 137/71 (93) 96 Room Air I&O- Last 24 Hours up to 6 AM 01/01/20 06:00 Intake Total 1300 ml Output Total 800 ml Balance 500 ml Laboratory Data Microbiology Microbiology 12/29/19 Gram Stain - Final, Complete 12/29/19 Sputum Culture - Final, Complete Pseudomonas Aeruginosa 12/29/19 Blood Culture - Preliminary, Resulted No Growth after 48 hours. All Specime... 12/29/19 Blood Culture - Preliminary, Resulted No Growth after 48 hours. All Specime... 12/29/19 Respiratory Virus Panel (PCR) ([facility]) - Final, Complete JACIEL ELISE MD Jan 01, 2020 07:23
--- NOTE | 2020-01-01 09:37 | REPVR ---
PROCEDURE INFORMATION: Exam: US Retroperitoneal Limited, Kidneys Exam date and time: 01/01/2020 9:11 AM Age: 84 years old Clinical indication: Other: Tomas eval ri's; Additional info: Tomas, urinary retetion. Resistive indices please TECHNIQUE: Imaging protocol: Real-time ultrasound of the retroperitoneum with image documentation. Examination was focused on the kidneys. COMPARISON: No relevant prior studies available. FINDINGS: Right kidney: The right kidney measures 13.1 cm in greatest dimension. There is some renal cortical loss. There are multiple right renal cysts with the largest measuring up to 2.9 cm. There is no right renal calcification or hydronephrosis. Left kidney: The left kidney measures 13.0 cm in greatest dimension. There is renal cortical loss present. There are left renal cysts, with the largest measuring up to 7.0 cm. There is no left renal calcification or hydronephrosis. Doppler interrogation as follows (PSV cm/s): Abdominal aorta 127. Right main renal artery 65 Left main renal artery 123 There is no delay in the upstroke of the left arcuate/intrarenal arteries. There is no delay in the upstroke in the right arcuate/intrarenal arteries. Bladder: Piña catheter in place. IMPRESSION: 1. Bilateral renal cysts. 2. No ultrasound evidence of renal artery stenosis. Electronically signed by: Mark Morris On 01/01/2020 09:37:21 AM
[2020-01-01] MEDS: LEVOTHYROXINE 112MCG TABLET (0.112MG) PO SCH (09:40)
[2020-01-01] MEDS: PREGABALIN 100 MG CAP (LYRICA) PO SCH (09:40)
[2020-01-01] MEDS: METOPROLOL SUCC (TopROL XL) 50MG **XL** TAB PO SCH (09:40)
[2020-01-01] MEDS: TAMSULOSIN 0.4 MG CAP PO SCH (09:40)
[2020-01-01] MEDS: SIMVASTATIN 20 MG TAB PO SCH (09:40)
[2020-01-01] MEDS: MULTIVITAMINS/MINERALS THERAP 1 TAB PO SCH (09:40)
[2020-01-01] MEDS: FINASTERIDE 5 MG TAB PO SCH (09:40)
[2020-01-01] MEDS: ASPIRIN 81 MG ENTERIC TAB PO SCH (09:40)
[2020-01-01] MEDS: APIXABAN 2.5 MG TAB (ELIQUIS) PO SCH ×2 (09:40→21:15)
[2020-01-01 10:00] VITALS: BP 126/67
[2020-01-01 11:32] LABS: HEMATOCRIT 32.9 % (42.0-52.0); HEMOGLOBIN 10.5 g/dl (13.5-17.5); MEAN CORPUSCULAR HEMOGLOBIN 30.9 pg (27.0-33.0); MEAN CORPUSCULAR HGB CONC 31.9 g/dl (32.0-36.5); MEAN CORPUSCULAR VOLUME 96.8 fl (80.0-96.0); PLATELET COUNT, AUTOMATED 176 10^3/uL (150-450); WHITE BLOOD COUNT 8.8 10^3/uL (4.0-10.0)
[2020-01-01 11:58] LABS: BLOOD UREA NITROGEN 29 MG/DL (7-18); CALCIUM LEVEL 8.5 MG/DL (8.8-10.2); CARBON DIOXIDE LEVEL 25 MEQ/L (21-32); CHLORIDE LEVEL 111 MEQ/L (98-107); CREATININE FOR GFR 0.94 MG/DL (0.70-1.30); GLOMERULAR FILTRATION RATE > 60.0 (>35); GLUCOSE, FASTING 109 MG/DL (70-100); SODIUM LEVEL 141 MEQ/L (136-145)
[2020-01-01 14:00] VITALS: BP 118/64
[2020-01-01] MEDS: NS 1,000 ML IV SCH (14:34)
[2020-01-01 19:19] VITALS: BP 133/69
[2020-01-01 22:00] VITALS: BP 133/69
[2020-01-02 02:00] VITALS: BP 131/68
[2020-01-02] MEDS: NS 1,000 ML IV SCH (03:07)
[2020-01-02] MEDS: metroNIDAZOLE 500 MG in IV 1 EA IV SCH (04:35)
[2020-01-02] MEDS: CEFEPIME HCL 1 GM in D5W MINI-BAG PLUS 50 ML IV SCH (05:49)
[2020-01-02 06:00] VITALS: BP 128/75
[2020-01-02 06:33] LABS: BASO % 0.4 % (0.0-1.0); EOS # 0.8 10^3/uL (0.0-0.5); EOS % 11.9 % (0.0-3.0); HEMATOCRIT 30.3 % (42.0-52.0); LYMPH # 0.9 10^3/uL (1.5-5.0); LYMPH % 12.5 % (24.0-44.0); MEAN CORPUSCULAR HEMOGLOBIN 31.3 pg (27.0-33.0); MEAN CORPUSCULAR VOLUME 94.7 fl (80.0-96.0); MONO # 0.7 10^3/uL (0.0-0.8); MONO % 9.2 % (0.0-5.0); NEUTROPHILS # 4.6 10^3/uL (1.5-8.5); NEUTROPHILS % 65.6 % (36.0-66.0); PLATELET COUNT, AUTOMATED 168 10^3/uL (150-450)
[2020-01-02 07:15] LABS: ALBUMIN 2.6 GM/DL (3.2-5.2); ALT/SGPT 16 U/L (12-78); BILIRUBIN,TOTAL 0.4 MG/DL (0.2-1.0); BLOOD UREA NITROGEN 24 MG/DL (7-18); CALCIUM LEVEL 8.5 MG/DL (8.8-10.2); CARBON DIOXIDE LEVEL 23 MEQ/L (21-32); CHLORIDE LEVEL 112 MEQ/L (98-107); CREATININE FOR GFR 0.89 MG/DL (0.70-1.30); GLOMERULAR FILTRATION RATE > 60.0 (>35); GLUCOSE, FASTING 126 MG/DL (70-100); POTASSIUM SERUM 3.6 MEQ/L (3.5-5.1); SODIUM LEVEL 140 MEQ/L (136-145)
[2020-01-02] MEDS: MULTIVITAMINS/MINERALS THERAP 1 TAB PO SCH (09:33)
[2020-01-02] MEDS: LEVOTHYROXINE 112MCG TABLET (0.112MG) PO SCH (09:33)
[2020-01-02] MEDS: FINASTERIDE 5 MG TAB PO SCH (09:33)
[2020-01-02 09:34] VITALS: BP 128/75
[2020-01-02] MEDS: APIXABAN 2.5 MG TAB (ELIQUIS) PO SCH (09:34)
[2020-01-02] MEDS: PREGABALIN 100 MG CAP (LYRICA) PO SCH (09:34)
[2020-01-02] MEDS: METOPROLOL SUCC (TopROL XL) 50MG **XL** TAB PO SCH (09:34)
[2020-01-02] MEDS: ASPIRIN 81 MG ENTERIC TAB PO SCH (09:34)
[2020-01-02] MEDS: TAMSULOSIN 0.4 MG CAP PO SCH (09:34)
[2020-01-02] MEDS: SIMVASTATIN 20 MG TAB PO SCH (09:34)
[2020-01-02] MEDS ORDERED: ACET1TAB55 PO (10:44)
[2020-01-02] MEDS ORDERED: FLOM0.4C39 PO (10:44)
[2020-01-02] MEDS ORDERED: CEFE2INJ2 IV ×2 (10:44→10:53)
--- NOTE | 2020-01-02 11:20 | DS.PDOC ---
Discharge Summary General Date of Admission Dec 29, 2019 at 10:34 Date of Discharge 01/02/20 Attending Physician: JACIEL ELISE MD Specialist/Consultants Involve: Adam Llanos Discharge Summary PROCEDURES PERFORMED DURING STAY: [None]. ADMITTING DIAGNOSES: HOSPITAL ACQUIRED PNEUMONIA FALL ORTHOSTATIC HYPOTENSION 2/2 HYPOVOLEMIA DYSPHAGIA TRISTEN CHRONIC ATRIAL FIBRILLATION UNSPECIFIED CHRONIC CONGESTIVE HEART FAILURE CAD S/P CABG HTN DISCHARGE DIAGNOSES: HOSPITAL ACQUIRED PNEUMONIA FALL ORTHOSTATIC HYPOTENSION 2/2 HYPOVOLEMIA DYSPHAGIA TRISTEN CHRONIC ATRIAL FIBRILLATION UNSPECIFIED CHRONIC CONGESTIVE HEART FAILURE CAD S/P CABG HTN COMPLICATIONS/CHIEF COMPLAINT: Pneumonia. HISTORY OF PRESENT ILLNESS Patient is a 84 yo male with PMH of HTN and recurrent PNA who moved from [place] to [place] 2 weeks ago was brought to [facility] due to 2-3 days of productive cough with yellow sputum and chills as well as fatigue, decreased appetite, nausea, lightheadedness/dizziness with a fall at home this morning. Patient was hospitalized in [place] around 1.5 month ago for pneumonia requiring IV abx treatment, daughter at bedside reported she thought it may have been aspiration pneumonia but she is unsure. Worsening productive cough with yellow sputum started 2-3 days ago without sick contact with congestion, denies dyspnea. Reported chills but no fever. Has nausea and decreased appetite but no vomiting. Denies any chest pain or palpitation. No pets at home but daughter has a cat. Patient was reported to be tested negative in [place] prior to moving to [place]. Pt was reported to have an episode of chest pain yesterday but resolved, and pt denies any current chest pain. Increase fatigue and pt slept almost whole day yesterday. Patient had a fall around 4-5AM at home when he was trying to walk to bathroom in a dark room, he reported increased lightheadedness/dizziness after he stood up. He fell and reported hitting his mid-back and superior occipital region. He reported no headache but reported thoracic spine region pain after the fall. De nies loss of consciousness, and pt was reported to not to be confused. He uses a walker at baseline and was reported to be using a walker at the time he walks to the restroom. Patient was reported to have some dysphagia at baseline starting a few years ago with no clear underlying etiology workup at this time. Pt was reported to have a "mini-stroke" per daughter a few years ago but daughter think it was unrelated to the dysphagia. HOSPITAL COURSE: 1. HAP/possible aspiration pna - infiltrate on CXR - likely aspiration from hx of dysphagia - Sputum culture + Pseudomonas, sens to cefepime - blood cultures prelim negative - MRSA screen + - c/w cefepime through 01/06/20 - HOB elevation Fall - likely 2/2 depletion vs orthostasis - CT head, c-spine without acute findings - for acute rehab Dysphagia - highly suspected given recurrent aspiration pna - OFFICE SYSTEMS TECHNOLOGY INSTRUCTOR eval: mild pharyngeal phase dysphagia, recommend level 2 solids with thin liqs. No aspiration on barium swallow. TRISTEN - resolved with IVF Urinary Retention - DC dent 12/31 (in place for 48 hrs), trial of void - PVRs < 200. - ok to straight cath if needed - patient is voiding spontaneously - renal US - no hydronephrosis, no renal art stenosis. Bilateral renal cysts Afib - home metoprolol - eliquis - has pacemaker, needs battery replacement (window 0-6 mo) - discussed with Dr. Llanos, will see patient in clinic on DC. CHF - appears volume depleted - metoprolol - resume lasix - will f/u with cardio - echo as outpatient CAD - s/p cabg - c/w asa/statin - c/w ARB/BB - will f/u with cardiology as outpatient HTN - BP controlled - home meds DISPOSITION: likely rehab on DC. ARU screening pending. DISCHARGE MEDICATIONS: Please see below. ALLERGIES: Please see below. PHYSICAL EXAMINATION ON DISCHARGE: VITAL SIGNS: Please see below. HEENT: PERRLA, EOMI, sclerae clear VITAL SIGNS: Please see below. Neck: supple, normal ROM, no JVD Resp: lungs CTAB, no wheeze, no rales, no crackles CVS: RRR, normal S1, S2, no murmurs Abdo: soft, no masses, no hepatosplenomegaly, BS+, no rebound tenderness Extremities: no edema, pulses 2+ MSK: no joint deformities, normal ROM Neuro: no focal neuro deficits, moving all 4 extremities Psych: calm, cooperative, AAO x 3 LABORATORY DATA: Please see below. IMAGING: CXR (12/29/19) FINDINGS: Tubes, catheters and devices: A left-sided pacemaker is present. Lungs: There is some retrocardiac atelectasis or infiltrate. The lungs are otherwise clear. Pleural space: Unremarkable. No pleural effusion. No pneumothorax. Heart/Mediastinum: Unremarkable. No cardiomegaly. Vasculature: The aorta is tortuous. Atherosclerotic vascular calcifications are noted. Bones/joints: Median sternotomy wires are present. Degenerative changes involve the spine and shoulders. IMPRESSION: Retrocardiac atelectasis or infiltrate. Thoracic Spine X-Ray (12/29/19) FINDINGS: Vertebrae: Mild dextroscoliosis. The spine demonstrates moderate degenerative changes. Other bones/joints: Status post sternotomy. Soft tissues: Unremarkable. Heart/Mediastinum: Intact cardiac pacing wires demonstrated. IMPRESSION: Moderate degenerative changes in the thoracic spine with a shallow dextroscoliosis. No fracture demonstrated. CT Head wo contrast (12/29/19) FINDINGS: Brain: Symmetric prominence of the cortical sulci. Small-vessel ischemic change. No acute post-traumatic brain injury. Ventricles: Normal configuration of the ventricles. Bones/joints: No acute calvarial injury. Paranasal sinuses: Trace left maxillary sinus fluid. Mastoid air cells: No mastoid effusion. Vasculature: Vascular and dural calcification. Soft tissues: No significant scalp hematoma. IMPRESSION: No acute post-traumatic brain injury. Renal US (01/01/20) FINDINGS: Right kidney: The right kidney measures 13.1 cm in greatest dimension. There is some renal cortical loss. There are multiple right renal cysts with the largest measuring up to 2.9 cm. There is no right renal calcification or hydronephrosis. Left kidney: The left kidney measures 13.0 cm in greatest dimension. There is renal cortical loss present. There are left renal cysts, with the largest measuring up to 7.0 cm. There is no left renal calcification or hydronephrosis. Doppler interrogation as follows (PSV cm/s): Abdominal aorta 127. Right main renal artery 65 Left main renal artery 123 There is no delay in the upstroke of the left arcuate/intrarenal arteries. There is no delay in the upstroke in the right arcuate/intrarenal arteries. Bladder: Dent catheter in place. IMPRESSION: 1. Bilateral renal cysts. 2. No ultrasound evidence of renal artery stenosis. PROGNOSIS:good ACTIVITY: [As tolerated]. DIET: low fat DISCHARGE PLAN: transfer to ARU for acute rehab. Follow up with PCP (new to [facility], will require establishment of care). Follow up with cardiology - Dr. Llanos, for replacement of batter on pacemaker (Dr. Llanos is aware, please follow up in 1 week after DC. DISPOSITION: . DISCHARGE INSTRUCTIONS: 1. PLEASE FOLLOW UP WITH YOUR PRIMARY CARE DOCTOR WITHIN 3-5 DAYS 2. PLEASE FOLLOW UP WITH CARDIOLOGY IN 1 WEEK AFTER DISCHARGE TO REPLACE THE BATTERY ON YOUR PACEMAKER. 3. PLEASE COMPLETE ADDITIONAL 4 DAYS OF IV ANTIBIOTICS ON DISCHARGE AT ARU (CEFEPIME 2 GM IV EVERY 8 HOURS) 4.IF YOU DEVELOP CHEST PAIN, SHORTNESS OF BREATH, FEVERS, CHILLS, BLEEDING OR OTHERWISE WORSENING FO YOUR SYMPTOMS, PLEASE CALL 911 OR RETURN TO THE EMERGENCY DEPARTMENT. ITEMS TO FOLLOWUP ON ON OUTPATIENT: 5. PLEASE CONTINUE FLOMAX. PVR < 200. IF DEVELOP URINARY RETENTION, MAY STRAIGHT CATHETERIZE AT ARU. DISCHARGE CONDITION: [Stable]. TIME SPENT ON DISCHARGE: Greater than 30 minutes. Vital Signs/I&Os Vital Signs Date Time Temp Pulse Resp B/P (MAP) Pulse Ox O2 Delivery O2 Flow Rate FiO2 01/02/20 09:34 65 128/75 01/02/20 06:00 98.3 22 95 Room Air I&O- Last 24 Hours up to 6 AM 01/02/20 05:59 Intake Total 2930 ml Output Total 850 ml Balance 2080 ml Laboratory Data Labs 24H Laboratory Tests 2 01/02/20 06:22: Immature Granulocyte % (Auto) 0.4, Neutrophils (%) (Auto) 65.6, Lymphocytes (%) (Auto) 12.5L, Monocytes (%) (Auto) 9.2H, Eosinophils (%) (Auto) 11.9H, Basophils (%) (Auto) 0.4, Neutrophils # (Auto) 4.6, Lymphocytes # (Auto) 0.9L, Monocytes # (Auto) 0.7, Eosinophils # (Auto) 0.8H, Basophils # (Auto) 0.0, Nucleated Red Blood Cells % (auto) 0.0, Anion Gap 5L, Glomerular Filtration Rate > 60.0, Calcium Level 8.5L, Magnesium Level 2.0, Total Bilirubin 0.4, Aspartate Amino Transf (AST/SGOT) 21, Alanine Aminotransferase (ALT/SGPT) 16, Alkaline Phosphatase 84, Total Protein 6.0L, Albumin 2.6L, Albumin/Globulin Ratio 0.8 CBC/BMP Laboratory Tests 01/02/20 06:22 Microbiology Microbiology 12/29/19 Gram Stain - Final, Complete 12/29/19 Sputum Culture - Final, Complete Pseudomonas Aeruginosa 12/29/19 Blood Culture - Preliminary, Resulted No Growth after 72 hours. All specime... 12/29/19 Blood Culture - Preliminary, Resulted No Growth after 72 hours. All specime... 12/29/19 Respiratory Virus Panel (PCR) ([facility]) - Final, Complete Discharge Medications Scheduled Albuterol Sulf (Albuterol Sulfate) 2.5 Mg/3 Ml Vial.neb, 1 VIAL NEB BID, (Reported) Allopurinol (Zyloprim) 300 Mg Tablet, 300 MG PO DAILY, (Reported) Apixaban (Eliquis) 5 Mg Tablet, 2.5 MG PO BID, (Reported) Aspirin (Aspir 81) 81 Mg Tablet.dr, 81 MG PO DAILY, (Reported) Cefepime in Iso-Osm Dextrose (Cefepime 2 gm Injection) 2 Gm/100 Ml Froz.piggy, 2 GM IV Q8H Finasteride (Finasteride) 5 Mg Tablet, 5 MG PO DAILY, (Reported) Furosemide (Furosemide) 20 Mg Tablet, 20 MG PO DAILY, (Reported) Irbesartan (Irbesartan) 75 Mg Tablet, 37.5 MG PO DAILY, (Reported) Levothyroxine Sodium (Levothyroxine Sodium) 112 Mcg Tablet, 112 MCG PO DAILY, (Reported) Metoprolol Succinate (Metoprolol Succinate) 50 Mg Tab.er.24h, 50 MG PO DAILY, (Reported) Multivit-Min/FA/Lycopen/Lutein (Centrum Silver Tablet) 1 Each Tablet, 1 TAB PO DAILY, (Reported) [place]-3 Fatty Acids/Fish Oil (Fish Oil 1,000 mg Capsule) 1 Each Capsule, 1,000 MG PO TID, (Reported) Potassium Chloride (Klor-Con M10) 10 Meq Tab.er.prt, 10 MEQ PO DAILY, (Reported) Pregabalin (Lyrica) 100 Mg Capsule, 100 MG PO DAILY, (Reported) Simvastatin (Simvastatin) 20 Mg Tablet, 20 MG PO DAILY, (Reported) Tamsulosin HCl (Flomax) 0.4 Mg Capsule, 0.4 MG PO DAILY Scheduled PRN Acetaminophen (Acetaminophen) 325 Mg Tablet, 650 MG PO Q4HP PRN for PAIN OR FEVER Allergies Coded Allergies: No Known Allergies (Unverified , 12/29/19) JACIEL ELISE MD Jan 02, 2020 11:20
[2020-01-04 14:08] LABS: BODY FLUID CULTURE Not indicated. (.); LEGIONELLA ANTIGEN URINE Negative (Negative); ORGANISM ID Not indicated. (.); SPECIMEN SOURCE Urine (.); URINE STREP PNEUMONIAE ANTIGEN Negative (Negative)
--- NOTE | 2020-01-13 13:03 | REP ---
LENNY SWALLOW The procedure was performed under the direct supervision of Dr. Ambrosio. The procedure was performed with Elaina Hughes from speech pathology present. 5 mL aliquots of thin, pudding, mixed fruit, soft, and solid consistency barium was administered. With thin consistent barium, there is laryngeal penetration. A detailed report of this examination will be provided by speech pathology. 2 minutes of fluoroscopy time was utilized for this procedure. IFTIKHAR
== END 2020-01-02 14:10 | DRG 178 ==
LOC: M ED 05:56 → M ED INP 10:34 → ENRESERV 10:48 → M MS5PR 11:38
PROVIDERS: ADMIT Internal Medicine; ATTEND Family Medicine
DX: J69.0 Pneumonitis due to inhalation of food and vomit (principal); N17.9 Acute kidney failure, unspecified; I48.20 Chronic atrial fibrillation, unspecified; R13.10 Dysphagia, unspecified; I25.10 Atherosclerotic heart disease of native coronary artery without angina pectoris; I50.9 Heart failure, unspecified; I11.0 Hypertensive heart disease with heart failure; I95.1 Orthostatic hypotension; R33.9 Retention of urine, unspecified; 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 cardiac pacemaker; Z79.01 Long term (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 anticoagulants; Z95.1 Presence of aortocoronary bypass graft; Z85.46 Personal history of malignant neoplasm of prostate; Z86.73 Personal history of transient ischemic attack (TIA), and cerebral infarction without residual deficits; Z85.51 Personal history of malignant neoplasm of bladder; Z92.21 Personal history of antineoplastic chemotherapy; Z98.49 Cataract extraction status, unspecified eye; Z90.49 Acquired absence of other specified parts of digestive tract; Z87.81 Personal history of (healed) traumatic fracture

== ENCOUNTER 2020-01-02 11:24 | Inpatient (IN) | payer MEDICARE, BC ==
[~2020-01-02] VITALS: Ht 182.9 cm; Wt 98.2 kg
[~2020-01-02 11:24] MED LIST: ACET1TAB55 PO; ALBU83IN NEB; ALLO10TA PO; ASPI81TA86 PO; CEFE2INJ2 IV; CENT1TAB PO; ELIQ2.5T PO; ELIQ5TAB PO; FINA5TAB2 PO; FISH1000 PO; FLOM0.4C39 PO; FURO20TA2 PO; IRBE75TA4 PO; KLOR10TA76 PO; LEVO112T2 PO; METO1TAB7 PO; PREG100CA PO; SIMV20TA22 PO; ZYLO300T6 PO
--- NOTE | 2020-01-02 11:47 | HPEPDOC ---
Corrective Therapist Note DATE OF ADMISSION: 01-02-20 DATE OF SERVICE: TIME OF ADMISSION: Please refer to physician's admission order. SOURCE OF ADMISSION INFORMATION: [facility] record and patient CHIEF COMPLAINT: pneumonia with dysphagia HISTORY OF PRESENT ILLNESS: 84M pmh chronic dysphagia with recurrent pneumonias and HTN with possible TIAs, spinal stenosis with peripheral polyneuropathy and left foot drop, Afib on AC, CAD s/p bypass, prostate cancer, bladder cancer s/p chemo in remission, who presented to [facility] ED on 12-29-19 complaining of cough and malaise. He was diagnosed with a new aspiration pneumonia and started on IV antibiotics and placed on a modified diet. His home Lasix dosing was held in the setting of orthostatics. His sputum grew pseudomonas and he was transitioned to IV Cefepime. He was found to be weak and have impairments in mobility and ADLs and deemed medically appropriate for discharge to ARU on 01-02-20. REVIEW OF SYSTEMS: The following is a completed review of systems and has been reviewed. Review of systems otherwise unremarkable. PAIN: Patient self reports no pain EYES: No recent vision changes EARS, NOSE, & THROAT: No throat pain, +chronic dysphagia CARDIOVASCULAR: Denies chest pain or palpitations PULMONARY: Denies shortness of breath GASTROINTESTINAL: Denies constipation/diarrhea GENITOURINARY: denies dysuria MUSCULOSKELETAL: generalized weakness NEUROLOGICAL:+peripheral polyneuropathy HEMATOLOGICAL: denies easy bruising SKIN: intact PSYCHIATRIC: Unremarkable All other review of systems found to be negative. PAST MEDICAL HISTORY: as per HPI PAST SURGICAL HISTORY: Cataract surgery, wrist repair, CABG, lumbar surgery, abdominal aortic aneurysm repair, pacemaker, TURP ALLERGIES: Please see below. MEDICATIONS: Please see below. SOCIAL HISTORY: Denies etoh. Former smoker, no illicit drugs DIET: level 2 thins PHYSICAL EXAMINATION: VITAL SIGNS: Please see below. GENERAL: Pleasant and cooperative. No acute distress. HEENT: PERRL. Extraocular movements intact. Clear conjunctiva CARDIOVASCULAR: Regular rate and rhythm. No murmurs, rubs, or gallops LUNGS: scattered wheeze ABDOMEN: Soft, nontender, nondistended. Positive bowel sounds. Normal active b owel sounds NEUROLOGICAL: Alert and oriented times three. Cranial nerves II through XII grossly intact. Sensation diminished to light touch in stocking pattern +left foot drop EXTREMITIES: 5\5 strength bilateral upper extremities. 4/5 right hip flexors/ k nee extensors, ankle DF and PF 4/5 left hip flexors, knee extensors, 2/5 ankle DF and 0/5 EHL SKIN: no sacral erythema LABORATORY DATA: Please see below. IMAGING: Imaging documentation personally reviewed by record FUNCTIONAL STATUS: Premorbid: Modified Independent with all activities of daily life as well as mobility with RW On Admission: Min- assist for functional transfers, ambulation, dressing GOALS: Mod-I community distances for ambulation, transfers, toileting, bathing, dressing ASSESSMENT:84-year-old M with past medical history of TIA and recurrent pneumonias who presents status post new aspiration pneumonia PLAN: 1. 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 NEuro- hx of TIAs with dysphagia of unclear etiology -hx of spinal stenosis s/p surgery with residual functional deficits including left foot drop, will strengthen and improve on balance training while on ARU- c/u Lyrica for spinal stenosis associated peripheral polyneuropathy 3. Cardiac- Afib and CAD s/p CABG- c/u eliquis, ASA, Toprol- medicine consulted to assist in overall management -home lasix on hold for hx of chronic CHF, will monitor for fluid overload, daily weights, fluid restrict - hx of AAA s/p repair -HLD c/u statin 4. Resp- hx of recurrent aspiration PNAs, c/u CEfepime, duonebs, guaifenesin, incentive spirometry 5. - hx of prostate cancer, c/u proscar and flomax, monitor PVRs 6. Endo- hx of hypothyroidism c/u synthroid 7. DVT ppx- on eliquis 8. GI ppx-protonix 9. Pain- tylenol 10. Dispo- TBD POST ADMISSION PHYSICIAN EVALUATION: Medical and functional status: Description of medical status, medical assessment: As above. Rehabilitation diagnosis and current and prior cold morbid medical conditions as above. Risk of complications and plans to mitigate them as above. Description of functional status current status is as above. Prior status as above. Status compared to preadmission: There are no clinically significant differences between the patient's current status and the information described on the preadmission screening document. Treatment plan anticipated: Treatment plan is as described above. Required disciplines including physical therapy, occupational therapy, others as noted above Intensity of services: 3 hours a day, 6 days a week. Special considerations: There are no specific special or safety considerations that would likely preclude immediate implementation of an intensive rehabilit ation program or subsequently influence the plan of care. ATTESTATION: Considering all the information above, it is my best judgment that this patient requires intensive rehabilitation therapy as described above and an inpatient hospital environment due to the complexity of nursing, medical, and rehabilitation needs required by the patient. Furthermore, this patient can reasonably be expected to participate in an benefit from an inpatient rehabilitation stay with an interdisciplinary team approach to the delivery of rehabilitation care under the direction and supervision of rehabilitation physician. PROGNOSIS: good ESTIMATED LENGTH OF STAY:14-16 days. PROJECTED DISCHARGE DESTINATION: Home with family support and any durable medical equipment required to increase functional safety and mobility TIME SPENT COUNSELING AND COORDINATING INITIAL CARE: Greater than 70 minutes. Vital Signs Vital Signs Date Time Temp Pulse Resp B/P (MAP) Pulse Ox O2 Delivery O2 Flow Rate FiO2 01/02/20 14:30 97.2 68 18 148/67 (94) 98 Room Air Home Medications Scheduled Albuterol Sulf (Albuterol Sulfate) 2.5 Mg/3 Ml Vial.neb, 1 VIAL NEB BID, (Reported) Allopurinol (Zyloprim) 300 Mg Tablet, 300 MG PO DAILY, (Reported) Apixaban (Eliquis) 5 Mg Tablet, 2.5 MG PO BID, (Reported) Aspirin (Aspir 81) 81 Mg Tablet.dr, 81 MG PO DAILY, (Reported) Cefepime in Iso-Osm Dextrose (Cefepime 2 gm Injection) 2 Gm/100 Ml Froz.piggy, 2 GM IV Q8H Finasteride (Finasteride) 5 Mg Tablet, 5 MG PO DAILY, (Reported) Furosemide (Furosemide) 20 Mg Tablet, 20 MG PO DAILY, (Reported) Irbesartan (Irbesartan) 75 Mg Tablet, 37.5 MG PO DAILY, (Reported) Levothyroxine Sodium (Levothyroxine Sodium) 112 Mcg Tablet, 112 MCG PO DAILY, (Reported) Metoprolol Succinate (Metoprolol Succinate) 50 Mg Tab.er.24h, 50 MG PO DAILY, (Reported) Multivit-Min/FA/Lycopen/Lutein (Centrum Silver Tablet) 1 Each Tablet, 1 TAB PO DAILY, (Reported) [place]-3 Fatty Acids/Fish Oil (Fish Oil 1,000 mg Capsule) 1 Each Capsule, 1,000 MG PO TID, (Reported) Potassium Chloride (Klor-Con M10) 10 Meq Tab.er.prt, 10 MEQ PO DAILY, (Reported) Pregabalin (Lyrica) 100 Mg Capsule, 100 MG PO DAILY, (Reported) Simvastatin (Simvastatin) 20 Mg Tablet, 20 MG PO DAILY, (Reported) Tamsulosin HCl (Flomax) 0.4 Mg Capsule, 0.4 MG PO DAILY Scheduled PRN Acetaminophen (Acetaminophen) 325 Mg Tablet, 650 MG PO Q4HP PRN for PAIN OR FEVER Allergies Coded Allergies: No Known Allergies (Unverified , 12/29/19) A-FIB/CHADSVASC A-FIB History Current/History of A-Fib/PAF?: Yes Current PO Anticoag Therapy: Yes DERIK MONREAL MD Jan 02, 2020 11:47
[2020-01-02] MEDS ORDERED: ACETAMINOPHEN TAB 650MG DOSE (2X325MG) PO PRN (12:00)
[2020-01-02 14:30] VITALS: BP 148/67
[2020-01-02] MEDS: IPRATROPIUM 0.5MG/ALBUTEROL 2.5MG INH SOL UD 3ML (DUONEB) NEB SCH ×2 (15:16→19:49)
[2020-01-02] MEDS: REMEDY PHYTOPLEX Z-GUARD PASTE 113GM TUBE (FROM STOREROOM PRODUCT) TOP SCH ×2 (16:00→21:00)
[2020-01-02] MEDS ORDERED: CEFEPIME HCL 2 GM in D5W MINI-BAG PLUS 50 ML IV SCH (17:00)
[2020-01-02] MEDS: guaiFENesin 200 MG TAB PO SCH ×2 (17:06→21:41)
[2020-01-02] MEDS: LACTOBACILLUS ACIDOPHILUS CAP (BACID) PO SCH (17:06)
[2020-01-02] MEDS ORDERED: CEFEPIME HCL 1 GM in D5W MINI-BAG PLUS 50 ML IV SCH (18:00)
[2020-01-02 20:00] VITALS: BP 145/70
[2020-01-02] MEDS: SENNA 8.6 MG TAB (SENOKOT) PO SCH (21:00)
[2020-01-02] MEDS: DOCUSATE SODIUM 100 MG CAP PO SCH (21:00)
[2020-01-02] MEDS: CEFEPIME HCL 2 GM in D5W MINI-BAG PLUS 50 ML IV SCH (21:41)
[2020-01-02] MEDS: APIXABAN 2.5 MG TAB (ELIQUIS) PO SCH (21:41)
[2020-01-03] MEDS: LEVOTHYROXINE 112MCG TABLET (0.112MG) PO SCH (05:33)
[2020-01-03] MEDS: CEFEPIME HCL 2 GM in D5W MINI-BAG PLUS 50 ML IV SCH ×3 (05:33→21:33)
[2020-01-03 06:00] VITALS: BP 152/72
[2020-01-03 06:33] LABS: BASO # 0.1 10^3/uL (0.0-0.2); BASO % 0.8 % (0.0-1.0); EOS # 0.7 10^3/uL (0.0-0.5); EOS % 11.4 % (0.0-3.0); HEMOGLOBIN 10.1 g/dl (13.5-17.5); LYMPH % 16.3 % (24.0-44.0); MEAN CORPUSCULAR HEMOGLOBIN 31.3 pg (27.0-33.0); MEAN CORPUSCULAR HGB CONC 32.6 g/dl (32.0-36.5); MONO # 0.6 10^3/uL (0.0-0.8); MONO % 9.5 % (0.0-5.0); NEUTROPHILS # 3.9 10^3/uL (1.5-8.5); NEUTROPHILS % 60.9 % (36.0-66.0); PLATELET COUNT, AUTOMATED 174 10^3/uL (150-450); RED BLOOD COUNT 3.23 10^6/uL (4.30-6.10); WHITE BLOOD COUNT 6.4 10^3/uL (4.0-10.0)
[2020-01-03 07:05] LABS: ALBUMIN 2.5 GM/DL (3.2-5.2); ALT/SGPT 17 U/L (12-78); BILIRUBIN,TOTAL 0.4 MG/DL (0.2-1.0); BLOOD UREA NITROGEN 21 MG/DL (7-18); CALCIUM LEVEL 8.5 MG/DL (8.8-10.2); CARBON DIOXIDE LEVEL 23 MEQ/L (21-32); CHLORIDE LEVEL 113 MEQ/L (98-107); CREATININE FOR GFR 0.87 MG/DL (0.70-1.30); GLOMERULAR FILTRATION RATE > 60.0 (>35); GLUCOSE, FASTING 110 MG/DL (70-100); POTASSIUM SERUM 3.7 MEQ/L (3.5-5.1); SODIUM LEVEL 142 MEQ/L (136-145)
[2020-01-03] MEDS: IPRATROPIUM 0.5MG/ALBUTEROL 2.5MG INH SOL UD 3ML (DUONEB) NEB SCH ×3 (07:53→20:10)
[2020-01-03] MEDS: REMEDY PHYTOPLEX Z-GUARD PASTE 113GM TUBE (FROM STOREROOM PRODUCT) TOP SCH ×3 (09:00→21:00)
[2020-01-03] MEDS: POTASSIUM CHLORIDE 10 MEQ SR TABLET PO SCH (09:23)
[2020-01-03] MEDS: ASPIRIN 81 MG ENTERIC TAB PO SCH (09:23)
[2020-01-03] MEDS: PREGABALIN 100 MG CAP (LYRICA) PO SCH (09:23)
[2020-01-03] MEDS: MULTIVITAMINS/MINERALS THERAP 1 TAB PO SCH (09:23)
[2020-01-03] MEDS: DOCUSATE SODIUM 100 MG CAP PO SCH ×2 (09:23→21:33)
[2020-01-03] MEDS: TAMSULOSIN 0.4 MG CAP PO SCH (09:23)
[2020-01-03] MEDS: APIXABAN 2.5 MG TAB (ELIQUIS) PO SCH ×2 (09:23→21:33)
[2020-01-03] MEDS: SIMVASTATIN 20 MG TAB PO SCH (09:24)
[2020-01-03] MEDS: guaiFENesin 200 MG TAB PO SCH ×3 (09:24→21:33)
[2020-01-03] MEDS: PANTOPRAZOLE 40MG TAB (PROTONIX) PO SCH (09:24)
[2020-01-03] MEDS: LACTOBACILLUS ACIDOPHILUS CAP (BACID) PO SCH ×3 (09:24→18:00)
[2020-01-03] MEDS: FINASTERIDE 5 MG TAB PO SCH (09:24)
[2020-01-03] MEDS: METOPROLOL SUCC (TopROL XL) 50MG **XL** TAB PO SCH (09:32)
[2020-01-03] MEDS ORDERED: traZODone 25MG PER 1/2 TABLET PO PRN (11:45)
--- NOTE | 2020-01-03 12:00 | HPEPDOC ---
[facility] Medical History & Physical Date of Admission Jan 02, 2020 Date of Service: Jan 03, 2020 Attending Physician: Diana Fry MD History and Physical HISTORY OF PRESENT ILLNESS: Patient is an 84 y/o M with PMH of chronic dysphagia with recurrent pneumonias, atrial fibrillation on oral AC, HTN with possible TIAs, spinal stenosis, peripheral polyneuropathy and left foot drop, CAD s/p bypass, prostate cancer, bladder cancer s/p chemo in remission who originally presented to [facility] on 12-29-19 complaining of cough. During his admission he was diagnosed and treated for aspiration pneumonia and started on IV antibiotics. Swallowing evaluation was done and he was placed on a modified diet. He was found to be orthostatic +, possibly causing his difficulty ambulating. His s putum grew pseudomonas and he changed to IV Cefepime. He was found to be weak and qualified for further rehabilitation in ARU. He was discharged from acute inpatient and admitted to ARU on 01/02/20. Since his admission, patient has had no acute concerning events. He, at times complains of difficulty swallowing large pills but denies increased shortness of breath, chest pain, fevers, chills, increased cough, n/v/d, lightheadedness, dizziness. PT/OT to continue working with him today. ROS: Neg except for what is mentioned above PAST MEDICAL HISTORY Prostate Ca A.fib CHF Coronary artery disease s/p triple by-pass Recurrent pneumonia HTN TIA AAA Spinal stenosis Broken wrist ? cholecystitis (hx of cholescystectomy, daughter reported gallbladder infection hx leading to sepsis prior) Bladder malignancy in remission s/p chemotherapy in 2018 A. fib on anticoagulation SURGICAL HISTORY Cataract surgery 2004 TURP 2005 Open heart triple bypass 2006 Abdominal aneurysm surgery 2007-Dr. Zeke Disla Back surgery for spinal stenosis 2008 Prostate biopsy 2009 Colonoscopy 2009 Broken wrist repair 2011-Dr. Win Cholescystectomy 2011 Heart monitor implanted 2012 Heart monitor removed, pacemaker implanted 2012 Colonoscopy Apr [address] Gabriel SOCIAL HISTORY Smoker: former Smoker (reported to quit 5-10 years ago) Alcohol: Denies Drugs: denies Pets in the home: Other (None at home, daugther has a cat but does not live with pt) Moves from [place] recently, lives with now FAMILY HISTORY: ALLERGIES: Please see below. CURRENT MEDICATIONS: Please see below. PHYSICAL EXAMINATION: VITAL SIGNS: Please see below GENERAL APPEARANCE: Well nourished male, in NAD, resting at bedside chair HEENT: AT/NC, no JVD. PERRLA CARDIOVASCULAR: S1S2 +, no M/R/G LUNGS: Increased rhonchi in RUL and mild wheezing throughout all lung horn, no rales. ABDOMEN: soft, nontender, nondistended, BS + in 4 quad MUSCULOSKELETAL: No atrophy, ROM not tested EXTREMITIES: No edema, cyanosis or clubbing. NEUROLOGICAL: No focal deficits, CN 2-12 intact PSYCHIATRIC: Normal mood and affect LABORATORY DATA: See below. IMAGING: No new imaging MICROBIOLOGY: Please see below. ASSESSMENT: 84 y/o M with PMH of HTN, atrial fibrillation on AC, recurrent PNA with current HCAP/aspiration PNA admitted to ARU for physical deconditioning and further rehabiliation, PT/OT. PLAN: 1. HCAP/possible aspiration PNA from dysphagia - Currently saturating well on RA, no increased SOB. - Infiltrate seen on prior CXR - Sputum culture + Pseudomonas, sensitive to cefepime - blood cultur neg - MRSA screen + - C/w cefepime through 01/06/20 - HOB elevation, aspiration precautions, acapella 2. Physical deconditioning, acute on chronic. S/p fall - Acute likely 2/2 depletion vs orthostasis - CT head, c-spine without acute findings - C/w PT/OT 3. Dysphagia with recurrent aspiration PNA -Still with some difficulty swallowing pills, advised to take drink of water prior , as his mouth may have been dry this AM - RADIO NEWS WRITER eval: mild pharyngeal phase dysphagia, recommend level 2 solids with thin liqs. No aspiration on barium swallow. - Aspiration precautions 4. Urinary Retention - Voiding well currently - DC dent 12/31 (in place for 48 hrs) - renal US - no hydronephrosis, no renal art stenosis. Bilateral renal cysts 5. Afib - Currently rate controlled. - C/w metoprolol, eliquis - has pacemaker, needs battery replacement (window 0-6 mo) - Dr. Llanos was made aware on last inpatient admission, would advise clinic follow up to be scheduled this rehab admission 6. CHF - No increased SOB, chest pain, lower ext swelling. - C/w metoprolol, lasix - F/u with cardiology as mentioned above 7. CAD s/p CABG - C/w asa/statin, ARB/BB - F/u with cardiology as outpatient 8. HTN - BP controlled - C/w current meds 9. DVT px. - Eliquis BID DISPOSITION: Plan is discharge home after ARU. Will need cardiology f/u arranged to check PM before discharge from rehab. PT/OT. Vital Signs Vital Signs Date Time Temp Pulse Resp B/P (MAP) Pulse Ox O2 Delivery O2 Flow Rate FiO2 01/03/20 09:32 70 122/82 01/03/20 06:00 97.0 18 94 Room Air Laboratory Data Labs 24H Laboratory Tests 2 01/03/20 06:10: Immature Granulocyte % (Auto) 1.1, Neutrophils (%) (Auto) 60.9, Lymphocytes (%) (Auto) 16.3L, Monocytes (%) (Auto) 9.5H, Eosinophils (%) (Auto) 11.4H, Basophils (%) (Auto) 0.8, Neutrophils # (Auto) 3.9, Lymphocytes # (Auto) 1.0L, Monocytes # (Auto) 0.6, Eosinophils # (Auto) 0.7H, Basophils # (Auto) 0.1, Nucleated Red Blood Cells % (auto) 0.0, Anion Gap 6L, Glomerular Filtration Rate > 60.0, C alcium Level 8.5L, Total Bilirubin 0.4, Aspartate Amino Transf (AST/SGOT) 25, Alanine Aminotransferase (ALT/SGPT) 17, Alkaline Phosphatase 84, Total Protein 6.0L, Albumin 2.5L, Albumin/Globulin Ratio 0.7 CBC/BMP Laboratory Tests 01/03/20 06:10 Home Medications Scheduled Albuterol Sulf (Albuterol Sulfate) 2.5 Mg/3 Ml Vial.neb, 1 VIAL NEB BID Allopurinol (Zyloprim) 300 Mg Tablet, 300 MG PO DAILY Apixaban (Eliquis) 5 Mg Tablet, 2.5 MG PO BID Aspirin (Aspir 81) 81 Mg Tablet.dr, 81 MG PO DAILY Cefepime in Iso-Osm Dextrose (Cefepime 2 gm Injection) 2 Gm/100 Ml Froz.piggy, 2 GM IV Q8H Finasteride (Finasteride) 5 Mg Tablet, 5 MG PO DAILY Furosemide (Furosemide) 20 Mg Tablet, 20 MG PO DAILY Irbesartan (Irbesartan) 75 Mg Tablet, 37.5 MG PO DAILY Levothyroxine Sodium (Levothyroxine Sodium) 112 Mcg Tablet, 112 MCG PO DAILY Metoprolol Succinate (Metoprolol Succinate) 50 Mg Tab.er.24h, 50 MG PO DAILY Multivit-Min/FA/Lycopen/Lutein (Centrum Silver Tablet) 1 Each Tablet, 1 TAB PO DAILY Wilson-3 Fatty Acids/Fish Oil (Fish Oil 1,000 mg Capsule) 1 Each Capsule, 1,000 MG PO TID Potassium Chloride (Klor-Con M10) 10 Meq Tab.er.prt, 10 MEQ PO DAILY Pregabalin (Lyrica) 100 Mg Capsule, 100 MG PO DAILY Simvastatin (Simvastatin) 20 Mg Tablet, 20 MG PO DAILY Tamsulosin HCl (Flomax) 0.4 Mg Capsule, 0.4 MG PO DAILY Scheduled PRN Acetaminophen (Acetaminophen) 325 Mg Tablet, 650 MG PO Q4HP PRN for PAIN OR FEVER Allergies Coded Allergies: No Known Allergies (Unverified , 12/29/19) A-FIB/CHADSVASC A-FIB History Current/History of A-Fib/PAF?: Yes Current PO Anticoag Therapy: Yes Age/Risk Factor Scoring CHADSVASC: CHADSVASC Response (Comments) Value Age Risk Factor Age >/= 75 years old 2 Gender Risk Factor Male 0 Hx of CHF No 0 Hx of HTN Yes 1 Hx of Stroke/TIA/or VTE No 0 Hx of Diabetes No 0 Hx of Vascular Disease No 0 Total 3 Treatment Treatment ordered: Apixaban Diana Fry MD Jan 03, 2020 12:00
[2020-01-03 14:00] VITALS: BP 144/64
[2020-01-03 20:00] VITALS: BP 147/72
[2020-01-03] MEDS: SENNA 8.6 MG TAB (SENOKOT) PO SCH (21:33)
[2020-01-04] MEDS: CEFEPIME HCL 2 GM in D5W MINI-BAG PLUS 50 ML IV SCH ×3 (04:42→19:58)
[2020-01-04] MEDS: LEVOTHYROXINE 112MCG TABLET (0.112MG) PO SCH (05:32)
[2020-01-04 06:15] VITALS: BP 141/69
[2020-01-04 07:33] LABS: BASO # 0.1 10^3/uL (0.0-0.2); BASO % 0.6 % (0.0-1.0); EOS # 0.9 10^3/uL (0.0-0.5); EOS % 11.7 % (0.0-3.0); HEMATOCRIT 30.7 % (42.0-52.0); LYMPH # 1.1 10^3/uL (1.5-5.0); LYMPH % 14.1 % (24.0-44.0); MEAN CORPUSCULAR HEMOGLOBIN 31.1 pg (27.0-33.0); MEAN CORPUSCULAR HGB CONC 32.6 g/dl (32.0-36.5); MEAN CORPUSCULAR VOLUME 95.3 fl (80.0-96.0); MONO # 0.7 10^3/uL (0.0-0.8); MONO % 8.3 % (0.0-5.0); NEUTROPHILS # 5.1 10^3/uL (1.5-8.5); NEUTROPHILS % 63.9 % (36.0-66.0); PLATELET COUNT, AUTOMATED 198 10^3/uL (150-450); RED BLOOD COUNT 3.22 10^6/uL (4.30-6.10)
[2020-01-04 07:54] LABS: BLOOD UREA NITROGEN 20 MG/DL (7-18); CALCIUM LEVEL 8.7 MG/DL (8.8-10.2); CARBON DIOXIDE LEVEL 22 MEQ/L (21-32); CHLORIDE LEVEL 113 MEQ/L (98-107); CREATININE FOR GFR 0.87 MG/DL (0.70-1.30); GLOMERULAR FILTRATION RATE > 60.0 (>35); GLUCOSE, FASTING 96 MG/DL (70-100); POTASSIUM SERUM 4.1 MEQ/L (3.5-5.1); SODIUM LEVEL 142 MEQ/L (136-145)
[2020-01-04] MEDS: IPRATROPIUM 0.5MG/ALBUTEROL 2.5MG INH SOL UD 3ML (DUONEB) NEB SCH ×3 (08:00→20:16)
[2020-01-04] MEDS: SIMVASTATIN 20 MG TAB PO SCH (08:35)
[2020-01-04] MEDS: TAMSULOSIN 0.4 MG CAP PO SCH (08:35)
[2020-01-04] MEDS: LACTOBACILLUS ACIDOPHILUS CAP (BACID) PO SCH ×3 (08:35→17:13)
[2020-01-04] MEDS: APIXABAN 2.5 MG TAB (ELIQUIS) PO SCH ×2 (08:35→19:59)
[2020-01-04] MEDS: ASPIRIN 81 MG ENTERIC TAB PO SCH (08:35)
[2020-01-04] MEDS: PANTOPRAZOLE 40MG TAB (PROTONIX) PO SCH (08:35)
[2020-01-04] MEDS: DOCUSATE SODIUM 100 MG CAP PO SCH ×2 (08:35→19:59)
[2020-01-04] MEDS: MULTIVITAMINS/MINERALS THERAP 1 TAB PO SCH (08:35)
[2020-01-04] MEDS: guaiFENesin 200 MG TAB PO SCH ×3 (08:36→19:59)
[2020-01-04] MEDS: PREGABALIN 100 MG CAP (LYRICA) PO SCH (08:37)
[2020-01-04] MEDS: POTASSIUM CHLORIDE 10 MEQ SR TABLET PO SCH (08:37)
[2020-01-04] MEDS: METOPROLOL SUCC (TopROL XL) 50MG **XL** TAB PO SCH (08:37)
[2020-01-04] MEDS: FINASTERIDE 5 MG TAB PO SCH (08:37)
[2020-01-04] MEDS: REMEDY PHYTOPLEX Z-GUARD PASTE 113GM TUBE (FROM STOREROOM PRODUCT) TOP SCH ×3 (08:38→19:59)
--- NOTE | 2020-01-04 13:23 | IPNPDOC ---
PM&R Progress Note DATE OF SERVICE: Jan 04, 2020 Account Support Analyst Progress Note Subjective: Patient reporting he slept better last night and feels stronger today. Denies fevers, chills or worsening cough. REVIEW OF SYSTEMS: The following is a completed review of systems and has been reviewed. Review of systems otherwise unremarkable. PAIN: Patient self reports no pain EYES: No recent vision changes EARS, NOSE, & THROAT: No throat pain, +chronic dysphagia CARDIOVASCULAR: Denies chest pain or palpitations PULMONARY: Denies shortness of breath GASTROINTESTINAL: Denies constipation/diarrhea GENITOURINARY: denies dysuria MUSCULOSKELETAL: generalized weakness NEUROLOGICAL:+peripheral polyneuropathy HEMATOLOGICAL: denies easy bruising SKIN: intact PSYCHIATRIC: Unremarkable All other review of systems found to be negative. PHYSICAL EXAMINATION: VITAL SIGNS: Please see below. GENERAL: Pleasant and cooperative. No acute distress. HEENT: PERRL. Extraocular movements intact. Clear conjunctiva CARDIOVASCULAR: Regular rate and rhythm. No murmurs, rubs, or gallops LUNGS: CTA ABDOMEN: Soft, nontender, nondistended. Positive bowel sounds. Normal active bowel sounds NEUROLOGICAL: Alert and oriented times three. Cranial nerves II through XII grossly intact. Sensation diminished to light touch in stocking pattern +left foot drop EXTREMITIES: 5\5 strength bilateral upper extremities. 4/5 right hip flexors/ knee extensors, ankle DF and PF 4/5 left hip flexors, knee extensors, 2/5 ankle DF and 0/5 EHL SKIN: no sacral erythema ASSESSMENT:84-year-old M with past medical history of TIA and recurrent pneumonias who presents status post new aspiration pneumonia PLAN: 1. 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 NEuro- hx of TIAs with dysphagia of unclear etiology -hx of spinal stenosis s/p surgery with residual functional deficits including left foot drop, will strengthen and improve on balance training while on ARU- c/u Lyrica for spinal stenosis associated peripheral polyneuropathy 3. Cardiac- Afib and CAD s/p CABG- c/u eliquis, ASA, Toprol- medicine consulted to assist in overall management -home lasix on hold for hx of chronic CHF, will monitor for fluid overload, daily weights, fluid restrict - hx of AAA s/p repair -HLD c/u statin 4. Resp- hx of recurrent aspiration PNAs, c/u CEfepime, duonebs, guaifenesin, incentive spirometry 5. - hx of prostate cancer, c/u proscar and flomax, monitor PVRs 6. Endo- hx of hypothyroidism c/u synthroid 7. DVT ppx- on eliquis 8. GI ppx-protonix 9. Pain- tylenol 10. Dispo- TBD Allergies Coded Allergies: No Known Allergies (Unverified , 12/29/19) Vital Signs Vital Signs Date Time Temp Pulse Resp B/P (MAP) Pulse Ox O2 Delivery O2 Flow Rate FiO2 01/04/20 06:15 97.0 88 20 141/69 (93) 92 Room Air Laboratory Data CBC/BMP Laboratory Tests 01/04/20 06:51 Labs 24H Laboratory Tests 2 01/04/20 06:51: Immature Granulocyte % (Auto) 1.4, Neutrophils (%) (Auto) 63.9, Lymphocytes (%) (Auto) 14.1L, Monocytes (%) (Auto) 8.3H, Eosinophils (%) (Auto) 11.7H, Basophils (%) (Auto) 0.6, Neutrophils # (Auto) 5.1, Lymphocytes # (Auto) 1.1L, Monocytes # (Auto) 0.7, Eosinophils # (Auto) 0.9H, Basophils # (Auto) 0.1, Nucleated Red Blood Cells % (auto) 0.0, Anion Gap 7L, Glomerular Filtration Rate > 60.0, Calcium Level 8.7L Current Medications Current Medications Current Medications Medications (Trade) Dose Ordered Sig/Gunner Route PRN Reason Start Time Stop Time Status Last Admin Dose Admin Acetaminophen (Tylenol Tab) 650 mg Q4HP PRN PO fever/MILD PAIN (PS 1-4) 01/02/20 12:00 Albuterol/ Ipratropium (Duoneb (Ipr 0.5mg/Alb 2.5mg)) 3 ml RTID NEB 01/02/20 14:00 01/04/20 08:00 Apixaban (Eliquis) 2.5 mg BID PO 01/02/20 21:00 01/04/20 08:35 Aspirin (Ecotrin) 81 mg DAILY PO 01/03/20 09:00 01/04/20 08:35 Cefepime HCl 1 gm/ Dextrose 50 ml @ 100 mls/hr Q12H IV 01/02/20 18:00 01/02/20 15:05 DC Cefepime HCl 2 gm/ Dextrose 50 ml @ 100 mls/hr Q8H IV 01/02/20 17:00 01/02/20 20:17 DC Cefepime HCl 2 gm/ Dextrose 50 ml @ 100 mls/hr Q8H IV 01/02/20 21:00 01/06/20 13:29 01/04/20 12:31 Docusate Sodium (Colace) 100 mg BID PO 01/02/20 21:00 01/04/20 08:35 Finasteride (Proscar) 5 mg DAILY PO 01/03/20 09:00 01/04/20 08:37 Guaifenesin (Robitussin Tab) 400 mg TID PO 01/02/20 16:00 01/04/20 08:36 Home Med (Med Rec Complete!) ASDIRECTED XX 01/02/20 14:45 01/02/20 14:48 DC Lactobacillus Acidophilus (Bacid) 1 ea WM PO 01/02/20 18:00 01/04/20 12:31 Levothyroxine Sodium (Synthroid) 112 mcg DAILY@06 PO 01/03/20 06:00 01/04/20 05:32 Metoprolol Succinate (TopROL XL) 50 mg DAILY PO 01/03/20 09:00 01/04/20 08:37 Multivitamins (Theragram-M) 1 tab DAILY PO 01/03/20 09:00 01/04/20 08:35 Pantoprazole Sodium (Protonix) 40 mg DAILY PO 01/03/20 09:00 01/04/20 08:35 Potassium Chloride (Micro-K Extencaps) 10 meq DAILY PO 01/03/20 09:00 01/04/20 08:37 Pregabalin (Lyrica) 100 mg DAILY PO 01/03/20 09:00 01/04/20 08:37 Senna (Senokot) 1 tab QHS PO 01/02/20 21:00 01/03/20 21:33 Simvastatin (Zocor) 20 mg DAILY PO 01/03/20 09:00 01/04/20 08:35 Tamsulosin HCl (Flomax) 0.4 mg DAILY PO 01/03/20 09:00 01/04/20 08:35 Trazodone HCl (Desyrel) 25 mg QHSP PRN PO INSOMNIA 01/03/20 11:45 DERIK MONREAL MD Jan 04, 2020 13:23
[2020-01-04 14:00] VITALS: BP 116/53
[2020-01-04] MEDS: SENNA 8.6 MG TAB (SENOKOT) PO SCH (19:59)
[2020-01-04 20:00] VITALS: BP 142/68
[2020-01-05] MEDS: CEFEPIME HCL 2 GM in D5W MINI-BAG PLUS 50 ML IV SCH ×3 (05:15→20:03)
[2020-01-05] MEDS: LEVOTHYROXINE 112MCG TABLET (0.112MG) PO SCH (05:15)
[2020-01-05 05:19] VITALS: BP 151/77
[2020-01-05] MEDS: IPRATROPIUM 0.5MG/ALBUTEROL 2.5MG INH SOL UD 3ML (DUONEB) NEB SCH ×3 (07:40→18:59)
[2020-01-05] MEDS: REMEDY PHYTOPLEX Z-GUARD PASTE 113GM TUBE (FROM STOREROOM PRODUCT) TOP SCH ×3 (09:00→20:03)
[2020-01-05] MEDS: PREGABALIN 100 MG CAP (LYRICA) PO SCH (09:27)
[2020-01-05] MEDS: PANTOPRAZOLE 40MG TAB (PROTONIX) PO SCH (09:27)
[2020-01-05] MEDS: TAMSULOSIN 0.4 MG CAP PO SCH (09:27)
[2020-01-05] MEDS: DOCUSATE SODIUM 100 MG CAP PO SCH ×2 (09:27→20:03)
[2020-01-05] MEDS: POTASSIUM CHLORIDE 10 MEQ SR TABLET PO SCH (09:28)
[2020-01-05] MEDS: APIXABAN 2.5 MG TAB (ELIQUIS) PO SCH ×2 (09:28→20:03)
[2020-01-05] MEDS: METOPROLOL SUCC (TopROL XL) 50MG **XL** TAB PO SCH (09:28)
[2020-01-05] MEDS: ASPIRIN 81 MG ENTERIC TAB PO SCH (09:28)
[2020-01-05] MEDS: MULTIVITAMINS/MINERALS THERAP 1 TAB PO SCH (09:28)
[2020-01-05] MEDS: guaiFENesin 200 MG TAB PO SCH ×3 (09:29→20:03)
[2020-01-05] MEDS: LACTOBACILLUS ACIDOPHILUS CAP (BACID) PO SCH ×3 (09:29→18:31)
[2020-01-05] MEDS: SIMVASTATIN 20 MG TAB PO SCH (09:29)
[2020-01-05] MEDS: FINASTERIDE 5 MG TAB PO SCH (09:29)
--- NOTE | 2020-01-05 10:45 | IPNPDOC ---
PM&R Progress Note DATE OF SERVICE: Jan 05, 2020 [employer] Progress Note Subjective: Patient seen in his room stating his endurance is improving and he is looking forward to going home. REVIEW OF SYSTEMS: The following is a completed review of systems and has been reviewed. Review of systems otherwise unremarkable. PAIN: Patient self reports no pain EYES: No recent vision changes EARS, NOSE, & THROAT: No throat pain, +chronic dysphagia CARDIOVASCULAR: Denies chest pain or palpitations PULMONARY: Denies shortness of breath GASTROINTESTINAL: Denies constipation/diarrhea GENITOURINARY: denies dysuria MUSCULOSKELETAL: generalized weakness NEUROLOGICAL:+peripheral polyneuropathy HEMATOLOGICAL: denies easy bruising SKIN: intact PSYCHIATRIC: Unremarkable All other review of systems found to be negative. PHYSICAL EXAMINATION: VITAL SIGNS: Please see below. GENERAL: Pleasant and cooperative. No acute distress. HEENT: PERRL. Extraocular movements intact. Clear conjunctiva CARDIOVASCULAR: Regular rate and rhythm. No murmurs, rubs, or gallops LUNGS: CTA ABDOMEN: Soft, nontender, nondistended. Positive bowel sounds. Normal active bowel sounds NEUROLOGICAL: Alert and oriented times three. Cranial nerves II through XII grossly intact. Sensation diminished to light touch in stocking pattern +left foot drop EXTREMITIES: 5\5 strength bilateral upper extremities. 4/5 right hip flexors/ knee extensors, ankle DF and PF 4/5 left hip flexors, knee extensors, 2/5 ankle DF and 0/5 EHL SKIN: no sacral erythema ASSESSMENT:84-year-old M with past medical history of TIA and recurrent pneumonias who presents status post new aspiration pneumonia PLAN: 1. 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 NEuro- hx of TIAs with dysphagia of unclear etiology -hx of spinal stenosis s/p surgery with residual functional deficits including left foot drop, will strengthen and improve on balance training while on ARU- c/u Lyrica for spinal stenosis associated peripheral polyneuropathy- regional medical director consulted for left custom AFO fitting 3. Cardiac- Afib and CAD s/p CABG- c/u eliquis, ASA, Toprol- medicine consulted to assist in overall management -home lasix on hold for hx of chronic CHF, will monitor for fluid overload, daily weights, fluid restrict - hx of AAA s/p repair -HLD c/u statin 4. Resp- hx of recurrent aspiration PNAs, c/u CEfepime, duonebs, guaifenesin, incentive spirometry- lung exam improving 5. - hx of prostate cancer, c/u proscar and flomax, monitor PVRs 6. Endo- hx of hypothyroidism c/u synthroid 7. DVT ppx- on eliquis 8. GI ppx-protonix 9. Pain- tylenol 10. Dispo- TBD Allergies Coded Allergies: No Known Allergies (Unverified , 12/29/19) Vital Signs Vital Signs Date Time Temp Pulse Resp B/P (MAP) Pulse Ox O2 Delivery O2 Flow Rate FiO2 01/05/20 09:28 71 127/74 01/05/20 05:19 96.4 17 99 Room Air Current Medications Current Medications Current Medications Medications (Trade) Dose Ordered Sig/Gunner Route PRN Reason Start Time Stop Time Status Last Admin Dose Admin Acetaminophen (Tylenol Tab) 650 mg Q4HP PRN PO fever/MILD PAIN (PS 1-4) 01/02/20 12:00 Albuterol/ Ipratropium (Duoneb (Ipr 0.5mg/Alb 2.5mg)) 3 ml RTID NEB 01/02/20 14:00 01/05/20 07:40 Apixaban (Eliquis) 2.5 mg BID PO 01/02/20 21:00 01/05/20 09:28 Aspirin (Ecotrin) 81 mg DAILY PO 01/03/20 09:00 01/05/20 09:28 Cefepime HCl 1 gm/ Dextrose 50 ml @ 100 mls/hr Q12H IV 01/02/20 18:00 01/02/20 15:05 DC Cefepime HCl 2 gm/ Dextrose 50 ml @ 100 mls/hr Q8H IV 01/02/20 17:00 01/02/20 20:17 DC Cefepime HCl 2 gm/ Dextrose 50 ml @ 100 mls/hr Q8H IV 01/02/20 21:00 01/06/20 13:29 01/05/20 05:15 Docusate Sodium (Colace) 100 mg BID PO 01/02/20 21:00 01/05/20 09:27 Finasteride (Proscar) 5 mg DAILY PO 01/03/20 09:00 01/05/20 09:29 Guaifenesin (Robitussin Tab) 400 mg TID PO 01/02/20 16:00 01/05/20 09:29 Home Med (Med Rec Complete!) ASDIRECTED XX 01/02/20 14:45 01/02/20 14:48 DC Lactobacillus Acidophilus (Bacid) 1 ea WM PO 01/02/20 18:00 01/05/20 09:29 Levothyroxine Sodium (Synthroid) 112 mcg DAILY@06 PO 01/03/20 06:00 01/05/20 05:15 Metoprolol Succinate (TopROL XL) 50 mg DAILY PO 01/03/20 09:00 01/05/20 09:28 Multivitamins (Theragram-M) 1 tab DAILY PO 01/03/20 09:00 01/05/20 09:28 Pantoprazole Sodium (Protonix) 40 mg DAILY PO 01/03/20 09:00 01/05/20 09:27 Potassium Chloride (Micro-K Extencaps) 10 meq DAILY PO 01/03/20 09:00 01/05/20 09:28 Pregabalin (Lyrica) 100 mg DAILY PO 01/03/20 09:00 01/05/20 09:27 Senna (Senokot) 1 tab QHS PO 01/02/20 21:00 01/04/20 19:59 Simvastatin (Zocor) 20 mg DAILY PO 01/03/20 09:00 01/05/20 09:29 Tamsulosin HCl (Flomax) 0.4 mg DAILY PO 01/03/20 09:00 01/05/20 09:27 Trazodone HCl (Desyrel) 25 mg QHSP PRN PO INSOMNIA 01/03/20 11:45 DERIK MONREAL MD Jan 05, 2020 10:45
[2020-01-05 14:00] VITALS: BP 120/56
[2020-01-05 20:00] VITALS: BP 133/79
[2020-01-05] MEDS: SENNA 8.6 MG TAB (SENOKOT) PO SCH (20:03)
[2020-01-06] MEDS: LEVOTHYROXINE 112MCG TABLET (0.112MG) PO SCH (05:32)
[2020-01-06] MEDS: CEFEPIME HCL 2 GM in D5W MINI-BAG PLUS 50 ML IV SCH ×2 (05:33→12:24)
[2020-01-06 05:53] VITALS: BP 147/72
[2020-01-06 07:13] LABS: BASO # 0.1 10^3/uL (0.0-0.2); BASO % 0.8 % (0.0-1.0); EOS # 0.7 10^3/uL (0.0-0.5); EOS % 10.1 % (0.0-3.0); HEMATOCRIT 31.2 % (42.0-52.0); HEMOGLOBIN 10.2 g/dl (13.5-17.5); LYMPH # 1.3 10^3/uL (1.5-5.0); LYMPH % 17.8 % (24.0-44.0); MEAN CORPUSCULAR HEMOGLOBIN 31.3 pg (27.0-33.0); MEAN CORPUSCULAR HGB CONC 32.7 g/dl (32.0-36.5); MEAN CORPUSCULAR VOLUME 95.7 fl (80.0-96.0); MONO # 0.5 10^3/uL (0.0-0.8); MONO % 7.4 % (0.0-5.0); NEUTROPHILS # 4.4 10^3/uL (1.5-8.5); NEUTROPHILS % 61.2 % (36.0-66.0); PLATELET COUNT, AUTOMATED 224 10^3/uL (150-450); RED BLOOD COUNT 3.26 10^6/uL (4.30-6.10); WHITE BLOOD COUNT 7.2 10^3/uL (4.0-10.0)
[2020-01-06 07:31] LABS: BLOOD UREA NITROGEN 23 MG/DL (7-18); CALCIUM LEVEL 9.1 MG/DL (8.8-10.2); CARBON DIOXIDE LEVEL 23 MEQ/L (21-32); CHLORIDE LEVEL 113 MEQ/L (98-107); CREATININE FOR GFR 0.97 MG/DL (0.70-1.30); GLOMERULAR FILTRATION RATE > 60.0 (>35); GLUCOSE, FASTING 101 MG/DL (70-100); POTASSIUM SERUM 4.3 MEQ/L (3.5-5.1); SODIUM LEVEL 143 MEQ/L (136-145)
[2020-01-06] MEDS: MULTIVITAMINS/MINERALS THERAP 1 TAB PO SCH (07:41)
[2020-01-06] MEDS: PREGABALIN 100 MG CAP (LYRICA) PO SCH (07:41)
[2020-01-06] MEDS: LACTOBACILLUS ACIDOPHILUS CAP (BACID) PO SCH ×3 (07:41→16:57)
[2020-01-06] MEDS: FINASTERIDE 5 MG TAB PO SCH (07:41)
[2020-01-06] MEDS: DOCUSATE SODIUM 100 MG CAP PO SCH ×2 (07:41→20:04)
[2020-01-06] MEDS: PANTOPRAZOLE 40MG TAB (PROTONIX) PO SCH (07:42)
[2020-01-06] MEDS: POTASSIUM CHLORIDE 10 MEQ SR TABLET PO SCH (07:42)
[2020-01-06] MEDS: TAMSULOSIN 0.4 MG CAP PO SCH (07:42)
[2020-01-06] MEDS: ASPIRIN 81 MG ENTERIC TAB PO SCH (07:42)
[2020-01-06] MEDS: guaiFENesin 200 MG TAB PO SCH ×3 (07:42→20:05)
[2020-01-06] MEDS: APIXABAN 2.5 MG TAB (ELIQUIS) PO SCH ×2 (07:42→20:05)
[2020-01-06] MEDS: SIMVASTATIN 20 MG TAB PO SCH (07:42)
[2020-01-06] MEDS: METOPROLOL SUCC (TopROL XL) 50MG **XL** TAB PO SCH (07:43)
[2020-01-06] MEDS: REMEDY PHYTOPLEX Z-GUARD PASTE 113GM TUBE (FROM STOREROOM PRODUCT) TOP SCH ×3 (07:43→20:05)
[2020-01-06] MEDS: IPRATROPIUM 0.5MG/ALBUTEROL 2.5MG INH SOL UD 3ML (DUONEB) NEB SCH ×3 (08:00→19:44)
--- NOTE | 2020-01-06 11:21 | IPNPDOC ---
PM&R Progress Note DATE OF SERVICE: Jan 06, 2020 Scrub Woman Progress Note Subjective: Patient seen in therapy stating he feels well, believes he has gotten stronger, denies cough or worsening shortness of breath. REVIEW OF SYSTEMS: The following is a completed review of systems and has been reviewed. Review of systems otherwise unremarkable. PAIN: Patient self reports no pain EYES: No recent vision changes EARS, NOSE, & THROAT: No throat pain, +chronic dysphagia CARDIOVASCULAR: Denies chest pain or palpitations PULMONARY: Denies shortness of breath GASTROINTESTINAL: Denies constipation/diarrhea GENITOURINARY: denies dysuria MUSCULOSKELETAL: generalized weakness NEUROLOGICAL:+peripheral polyneuropathy HEMATOLOGICAL: denies easy bruising SKIN: intact PSYCHIATRIC: Unremarkable All other review of systems found to be negative. PHYSICAL EXAMINATION: VITAL SIGNS: Please see below. GENERAL: Pleasant and cooperative. No acute distress. HEENT: PERRL. Extraocular movements intact. Clear conjunctiva CARDIOVASCULAR: Regular rate and rhythm. No murmurs, rubs, or gallops LUNGS: CTA ABDOMEN: Soft, nontender, nondistended. Positive bowel sounds. Normal active bowel sounds NEUROLOGICAL: Alert and oriented times three. Cranial nerves II through XII grossly intact. Sensation diminished to light touch in stocking pattern +left foot drop EXTREMITIES: 5\5 strength bilateral upper extremities. 4/5 right hip flexors/ knee extensors, ankle DF and PF 4/5 left hip flexors, knee extensors, 2/5 ankle DF and 0/5 EHL SKIN: no sacral erythema ASSESSMENT:84-year-old M with past medical history of TIA and recurrent pneumonias who presents status post new aspiration pneumonia PLAN: 1. 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 Cardiac- Afib and CAD s/p CABG- c/u eliquis, ASA, Toprol- medicine consulted to assist in overall management -home lasix on hold for hx of chronic CHF, will monitor for fluid overload, daily weights, fluid restrict - hx of AAA s/p repair -HLD c/u statin 4. Resp- hx of recurrent aspiration PNAs, c/u CEfepime, duonebs, guaifenesin, incentive spirometry- lung exam improving 5. - hx of prostate cancer, c/u proscar and flomax, monitor PVRs 6. Endo- hx of hypothyroidism c/u synthroid 7. DVT ppx- on eliquis 8. GI ppx-protonix 9. Pain- tylenol 10. Dispo- TBD Allergies Coded Allergies: No Known Allergies (Unverified , 12/29/19) Vital Signs Vital Signs Date Time Temp Pulse Resp B/P (MAP) Pulse Ox O2 Delivery O2 Flow Rate FiO2 01/06/20 07:43 65 147/72 01/06/20 05:53 96.7 18 96 Room Air Laboratory Data CBC/BMP Laboratory Tests 01/06/20 06:08 Labs 24H Laboratory Tests 2 01/06/20 06:08: Immature Granulocyte % (Auto) 2.7, Neutrophils (%) (Auto) 61.2, Lymphocytes (%) (Auto) 17.8L, Monocytes (%) (Auto) 7.4H, Eosinophils (%) (Auto) 10.1H, Basophils (%) (Auto) 0.8, Neutrophils # (Auto) 4.4, Lymphocytes # (Auto) 1.3L, Monocytes # (Auto) 0.5, Eosinophils # (Auto) 0.7H, Basophils # (Auto) 0.1, Nucleated Red Bl ood Cells % (auto) 0.0, Anion Gap 7L, Glomerular Filtration Rate > 60.0, Calcium Level 9.1 Current Medications Current Medications Current Medications Medications (Trade) Dose Ordered Sig/Gunner Route PRN Reason Start Time Stop Time Status Last Admin Dose Admin Acetaminophen (Tylenol Tab) 650 mg Q4HP PRN PO fever/MILD PAIN (PS 1-4) 01/02/20 12:00 Albuterol/ Ipratropium (Duoneb (Ipr 0.5mg/Alb 2.5mg)) 3 ml RTID NEB 01/02/20 14:00 01/05/20 18:59 Apixaban (Eliquis) 2.5 mg BID PO 01/02/20 21:00 01/06/20 07:42 Aspirin (Ecotrin) 81 mg DAILY PO 01/03/20 09:00 01/06/20 07:42 Cefepime HCl 1 gm/ Dextrose 50 ml @ 100 mls/hr Q12H IV 01/02/20 18:00 01/02/20 15:05 DC Cefepime HCl 2 gm/ Dextrose 50 ml @ 100 mls/hr Q8H IV 01/02/20 17:00 01/02/20 20:17 DC Cefepime HCl 2 gm/ Dextrose 50 ml @ 100 mls/hr Q8H IV 01/02/20 21:00 01/06/20 13:29 01/06/20 05:33 Docusate Sodium (Colace) 100 mg BID PO 01/02/20 21:00 01/06/20 07:41 Finasteride (Proscar) 5 mg DAILY PO 01/03/20 09:00 01/06/20 07:41 Guaifenesin (Robitussin Tab) 400 mg TID PO 01/02/20 16:00 01/06/20 07:42 Home Med (Med Rec Complete!) ASDIRECTED XX 01/02/20 14:45 01/02/20 14:48 DC Lactobacillus Acidophilus (Bacid) 1 ea WM PO 01/02/20 18:00 01/06/20 07:41 Levothyroxine Sodium (Synthroid) 112 mcg DAILY@06 PO 01/03/20 06:00 01/06/20 05:32 Metoprolol Succinate (TopROL XL) 50 mg DAILY PO 01/03/20 09:00 01/06/20 07:43 Multivitamins (Theragram-M) 1 tab DAILY PO 01/03/20 09:00 01/06/20 07:41 Pantoprazole Sodium (Protonix) 40 mg DAILY PO 01/03/20 09:00 01/06/20 07:42 Potassium Chloride (Micro-K Extencaps) 10 meq DAILY PO 01/03/20 09:00 01/06/20 07:42 Pregabalin (Lyrica) 100 mg DAILY PO 01/03/20 09:00 01/06/20 07:41 Senna (Senokot) 1 tab QHS PO 01/02/20 21:00 01/05/20 20:03 Simvastatin (Zocor) 20 mg DAILY PO 01/03/20 09:00 01/06/20 07:42 Tamsulosin HCl (Flomax) 0.4 mg DAILY PO 01/03/20 09:00 01/06/20 07:42 Trazodone HCl (Desyrel) 25 mg QHSP PRN PO INSOMNIA 01/03/20 11:45 DERIK MONREAL MD Jan 06, 2020 11:21
[2020-01-06 14:00] VITALS: BP 127/72
[2020-01-06 20:00] VITALS: BP 138/72
[2020-01-06] MEDS: SENNA 8.6 MG TAB (SENOKOT) PO SCH (20:04)
[2020-01-07] MEDS: LEVOTHYROXINE 112MCG TABLET (0.112MG) PO SCH (05:36)
[2020-01-07 06:44] VITALS: BP 141/79
[2020-01-07] MEDS: IPRATROPIUM 0.5MG/ALBUTEROL 2.5MG INH SOL UD 3ML (DUONEB) NEB SCH ×3 (07:14→20:15)
[2020-01-07] MEDS: guaiFENesin 200 MG TAB PO SCH ×3 (08:09→21:52)
[2020-01-07] MEDS: APIXABAN 2.5 MG TAB (ELIQUIS) PO SCH ×2 (08:09→21:00)
[2020-01-07] MEDS: POTASSIUM CHLORIDE 10 MEQ SR TABLET PO SCH (08:10)
[2020-01-07] MEDS: ASPIRIN 81 MG ENTERIC TAB PO SCH (08:10)
[2020-01-07] MEDS: DOCUSATE SODIUM 100 MG CAP PO SCH ×2 (08:10→21:54)
[2020-01-07] MEDS: TAMSULOSIN 0.4 MG CAP PO SCH (08:10)
[2020-01-07] MEDS: LACTOBACILLUS ACIDOPHILUS CAP (BACID) PO SCH ×3 (08:10→16:36)
[2020-01-07] MEDS: METOPROLOL SUCC (TopROL XL) 50MG **XL** TAB PO SCH (08:10)
[2020-01-07] MEDS: MULTIVITAMINS/MINERALS THERAP 1 TAB PO SCH (08:10)
[2020-01-07] MEDS: SIMVASTATIN 20 MG TAB PO SCH (08:10)
[2020-01-07] MEDS: FINASTERIDE 5 MG TAB PO SCH (08:10)
[2020-01-07] MEDS: PANTOPRAZOLE 40MG TAB (PROTONIX) PO SCH (08:10)
[2020-01-07] MEDS: REMEDY PHYTOPLEX Z-GUARD PASTE 113GM TUBE (FROM STOREROOM PRODUCT) TOP SCH ×3 (08:11→20:09)
[2020-01-07] MEDS: PREGABALIN 100 MG CAP (LYRICA) PO SCH (10:36)
[2020-01-07 14:00] VITALS: BP 122/68
[2020-01-07 20:00] VITALS: BP 144/71
[2020-01-07] MEDS: SENNA 8.6 MG TAB (SENOKOT) PO SCH (21:52)
[2020-01-08 06:45] VITALS: BP 128/60
[2020-01-08] MEDS: LEVOTHYROXINE 112MCG TABLET (0.112MG) PO SCH (06:55)
[2020-01-08] MEDS: SIMVASTATIN 20 MG TAB PO SCH (08:53)
[2020-01-08] MEDS: MULTIVITAMINS/MINERALS THERAP 1 TAB PO SCH (08:53)
[2020-01-08] MEDS: FINASTERIDE 5 MG TAB PO SCH (08:53)
[2020-01-08] MEDS: guaiFENesin 200 MG TAB PO SCH ×3 (08:54→21:40)
[2020-01-08] MEDS: METOPROLOL SUCC (TopROL XL) 50MG **XL** TAB PO SCH (08:54)
[2020-01-08] MEDS: DOCUSATE SODIUM 100 MG CAP PO SCH ×2 (08:54→21:40)
[2020-01-08] MEDS: ASPIRIN 81 MG ENTERIC TAB PO SCH (08:54)
[2020-01-08] MEDS: APIXABAN 2.5 MG TAB (ELIQUIS) PO SCH ×2 (08:55→21:40)
[2020-01-08] MEDS: PANTOPRAZOLE 40MG TAB (PROTONIX) PO SCH (08:55)
[2020-01-08] MEDS: REMEDY PHYTOPLEX Z-GUARD PASTE 113GM TUBE (FROM STOREROOM PRODUCT) TOP SCH ×3 (08:55→21:00)
[2020-01-08] MEDS: LACTOBACILLUS ACIDOPHILUS CAP (BACID) PO SCH ×3 (08:55→16:57)
[2020-01-08] MEDS: TAMSULOSIN 0.4 MG CAP PO SCH (08:55)
[2020-01-08] MEDS: POTASSIUM CHLORIDE 10 MEQ SR TABLET PO SCH (08:55)
[2020-01-08] MEDS: IPRATROPIUM 0.5MG/ALBUTEROL 2.5MG INH SOL UD 3ML (DUONEB) NEB SCH ×3 (09:35→19:12)
[2020-01-08 14:00] VITALS: BP 144/65
[2020-01-08] MEDS ORDERED: HumaLOG INSULIN (NovoLOG) PER UNIT SC SCH (17:30)
[2020-01-08 20:28] VITALS: BP 130/60
[2020-01-08] MEDS: SENNA 8.6 MG TAB (SENOKOT) PO SCH (21:40)
[2020-01-08] MEDS: PREGABALIN 100 MG CAP (LYRICA) PO SCH (21:40)
[2020-01-09 06:19] VITALS: BP 113/56
[2020-01-09] MEDS: LEVOTHYROXINE 112MCG TABLET (0.112MG) PO SCH (06:22)
[2020-01-09] MEDS: IPRATROPIUM 0.5MG/ALBUTEROL 2.5MG INH SOL UD 3ML (DUONEB) NEB SCH ×3 (07:37→20:03)
[2020-01-09] MEDS: REMEDY PHYTOPLEX Z-GUARD PASTE 113GM TUBE (FROM STOREROOM PRODUCT) TOP SCH ×3 (09:00→20:40)
[2020-01-09] MEDS: guaiFENesin 200 MG TAB PO SCH ×3 (09:06→20:40)
[2020-01-09] MEDS: SIMVASTATIN 20 MG TAB PO SCH (09:06)
[2020-01-09] MEDS: ASPIRIN 81 MG ENTERIC TAB PO SCH (09:06)
[2020-01-09] MEDS: LACTOBACILLUS ACIDOPHILUS CAP (BACID) PO SCH ×3 (09:06→17:31)
[2020-01-09] MEDS: DOCUSATE SODIUM 100 MG CAP PO SCH ×2 (09:06→20:40)
[2020-01-09] MEDS: FINASTERIDE 5 MG TAB PO SCH (09:07)
[2020-01-09] MEDS: METOPROLOL SUCC (TopROL XL) 50MG **XL** TAB PO SCH (09:07)
[2020-01-09] MEDS: TAMSULOSIN 0.4 MG CAP PO SCH (09:07)
[2020-01-09] MEDS: APIXABAN 2.5 MG TAB (ELIQUIS) PO SCH ×2 (09:07→20:40)
[2020-01-09] MEDS: MULTIVITAMINS/MINERALS THERAP 1 TAB PO SCH (09:07)
[2020-01-09] MEDS: PANTOPRAZOLE 40MG TAB (PROTONIX) PO SCH (09:07)
[2020-01-09] MEDS: POTASSIUM CHLORIDE 10 MEQ SR TABLET PO SCH (09:07)
[2020-01-09 10:09] LABS: BASO % 0.5 % (0.0-1.0); EOS # 0.5 10^3/uL (0.0-0.5); EOS % 6.2 % (0.0-3.0); HEMATOCRIT 35.4 % (42.0-52.0); HEMOGLOBIN 11.3 g/dl (13.5-17.5); LYMPH # 1.1 10^3/uL (1.5-5.0); LYMPH % 14.1 % (24.0-44.0); MEAN CORPUSCULAR HEMOGLOBIN 30.9 pg (27.0-33.0); MEAN CORPUSCULAR HGB CONC 31.9 g/dl (32.0-36.5); MEAN CORPUSCULAR VOLUME 96.7 fl (80.0-96.0); MONO # 0.4 10^3/uL (0.0-0.8); MONO % 5.4 % (0.0-5.0); NEUTROPHILS # 5.4 10^3/uL (1.5-8.5); NEUTROPHILS % 72.7 % (36.0-66.0); PLATELET COUNT, AUTOMATED 209 10^3/uL (150-450); RED BLOOD COUNT 3.66 10^6/uL (4.30-6.10); WHITE BLOOD COUNT 7.5 10^3/uL (4.0-10.0)
[2020-01-09 10:32] LABS: BLOOD UREA NITROGEN 23 MG/DL (7-18); CALCIUM LEVEL 9.3 MG/DL (8.8-10.2); CARBON DIOXIDE LEVEL 30 MEQ/L (21-32); CHLORIDE LEVEL 109 MEQ/L (98-107); CREATININE FOR GFR 1.09 MG/DL (0.70-1.30); GLOMERULAR FILTRATION RATE > 60.0 (>35); GLUCOSE, FASTING 125 MG/DL (70-100); POTASSIUM SERUM 4.8 MEQ/L (3.5-5.1); SODIUM LEVEL 140 MEQ/L (136-145)
--- NOTE | 2020-01-09 11:47 | IPNPDOC ---
PM&R Progress Note DATE OF SERVICE: Jan 09, 2020 [employer] Progress Note Subjective: Patient seen in his room stating he has a mild cough but it comes and goes and is not getting worse. REVIEW OF SYSTEMS: The following is a completed review of systems and has been reviewed. Review of systems otherwise unremarkable. PAIN: Patient self reports no pain EYES: No recent vision changes EARS, NOSE, & THROAT: No throat pain, +chronic dysphagia CARDIOVASCULAR: Denies chest pain or palpitations PULMONARY: Denies shortness of breath GASTROINTESTINAL: Denies constipation/diarrhea GENITOURINARY: denies dysuria MUSCULOSKELETAL: generalized weakness NEUROLOGICAL:+peripheral polyneuropathy HEMATOLOGICAL: denies easy bruising SKIN: intact PSYCHIATRIC: Unremarkable All other review of systems found to be negative. PHYSICAL EXAMINATION: VITAL SIGNS: Please see below. GENERAL: Pleasant and cooperative. No acute distress. HEENT: PERRL. Extraocular movements intact. Clear conjunctiva CARDIOVASCULAR: Regular rate and rhythm. No murmurs, rubs, or gallops LUNGS: CTA ABDOMEN: Soft, nontender, nondistended. Positive bowel sounds. Normal active bowel sounds NEUROLOGICAL: Alert and oriented times three. Cranial nerves II through XII grossly intact. Sensation diminished to light touch in stocking pattern +left foot drop EXTREMITIES: 5\5 strength bilateral upper extremities. 4/5 right hip flexors/ knee extensors, ankle DF and PF 4/5 left hip flexors, knee extensors, 2/5 ankle DF and 0/5 EHL SKIN: no sacral erythema ASSESSMENT:84-year-old M with past medical history of TIA and recurrent pneumonias who presents status post new aspiration pneumonia PLAN: 1. Rehab- PT/OT advance gait and ADls, strenghten/stretch/maintain ROM all 4 limbs, ambulating further with RW DISPLAY DIRECTOR- foot hx of dysphagia, c/u level 2 and thins 2. NEuro- hx of TIAs with dysphagia of unclear etiology -hx of spinal stenosis s/p surgery with residual functional deficits including left foot drop, will strengthen and improve on balance training while on ARU- c/u Lyrica for spinal stenosis associated peripheral polyneuropathy- stitching department supervisor consulted for left custom AFO fitting 3. Cardiac- Afib and CAD s/p CABG- c/u eliquis, ASA, Toprol- medicine consulted to assist in overall management -home lasix on hold for hx of chronic CHF, will monitor for fluid overload, daily weights, fluid restrict - hx of AAA s/p repair -HLD c/u statin 4. Resp- hx of recurrent aspiration PNAs, s/p course of CEfepime, duonebs, guaifenesin, incentive spirometry 5. - hx of prostate cancer, c/u proscar and flomax, monitor PVRs 6. Endo- hx of hypothyroidism c/u synthroid 7. DVT ppx- on eliquis 8. GI ppx-protonix 9. Pain- tylenol 10. Dispo- 01-11-20 to home, progressing towards goals Allergies Coded Allergies: No Known Allergies (Unverified , 12/29/19) Vital Signs Vital Signs Date Time Temp Pulse Resp B/P (MAP) Pulse Ox O2 Delivery O2 Flow Rate FiO2 01/09/20 09:07 69 123/61 01/09/20 06:19 96.5 19 96 Room Air Laboratory Data CBC/BMP Laboratory Tests 01/09/20 09:56 Labs 24H Laboratory Tests 2 01/09/20 06:24: Bedside Glucose (Misc Panel) 90 01/09/20 09:56: Immature Granulocyte % (Auto) 1.1, Neutrophils (%) (Auto) 72.7H, Lymphocytes (%) (Auto) 14.1L, Monocytes (%) (Auto) 5.4H, Eosinophils (%) (Auto) 6.2H, Basophils (%) (Auto) 0.5, Neutrophils # (Auto) 5.4, Lymphocytes # (Auto) 1.1L, Monocytes # (Auto) 0.4, Eosinophils # (Auto) 0.5, Basophils # (Auto) 0.0, Nucleated Red Blood Cells % (auto) 0.0, Anion Gap 1L, Glomerular Filtration Rate > 60.0, Calcium Level 9.3 Current Medications Current Medications Current Medications Medications (Trade) Dose Ordered Sig/Gunner Route PRN Reason Start Time Stop Time Status Last Admin Dose Admin Acetaminophen (Tylenol Tab) 650 mg Q4HP PRN PO fever/MILD PAIN (PS 1-4) 01/02/20 12:00 Albuterol/ Ipratropium (Duoneb (Ipr 0.5mg/Alb 2.5mg)) 3 ml RTID NEB 01/02/20 14:00 01/08/20 19:12 Apixaban (Eliquis) 2.5 mg BID PO 01/02/20 21:00 01/09/20 09:07 Aspirin (Ecotrin) 81 mg DAILY PO 01/03/20 09:00 01/09/20 09:06 Cefepime HCl 1 gm/ Dextrose 50 ml @ 100 mls/hr Q12H IV 01/02/20 18:00 01/02/20 15:05 DC Cefepime HCl 2 gm/ Dextrose 50 ml @ 100 mls/hr Q8H IV 01/02/20 17:00 01/02/20 20:17 DC Cefepime HCl 2 gm/ Dextrose 50 ml @ 100 mls/hr Q8H IV 01/02/20 21:00 01/06/20 13:29 DC 01/06/20 12:24 Docusate Sodium (Colace) 100 mg BID PO 01/02/20 21:00 01/09/20 09:06 Finasteride (Proscar) 5 mg DAILY PO 01/03/20 09:00 01/09/20 09:07 Guaifenesin (Robitussin Tab) 400 mg TID PO 01/02/20 16:00 01/09/20 09:06 Home Med (Med Rec Complete!) ASDIRECTED XX 01/02/20 14:45 01/02/20 14:48 DC Insulin Human Lispro (HumaLOG INSULIN) See Protocol Table AC SC 01/08/20 17:30 UNV Lactobacillus Acidophilus (Bacid) 1 ea WM PO 01/02/20 18:00 01/09/20 09:06 Levothyroxine Sodium (Synthroid) 112 mcg DAILY@06 PO 01/03/20 06:00 01/09/20 06:22 Metoprolol Succinate (TopROL XL) 50 mg DAILY PO 01/03/20 09:00 01/09/20 09:07 Multivitamins (Theragram-M) 1 tab DAILY PO 01/03/20 09:00 01/09/20 09:07 Pantoprazole Sodium (Protonix) 40 mg DAILY PO 01/03/20 09:00 01/09/20 09:07 Potassium Chloride (Micro-K Extencaps) 10 meq DAILY PO 01/03/20 09:00 01/09/20 09:07 Pregabalin (Lyrica) 100 mg DAILY PO 01/03/20 09:00 01/07/20 17:49 DC 01/07/20 10:36 Pregabalin (Lyrica) 100 mg QHS PO 01/08/20 21:00 01/08/20 21:40 Senna (Senokot) 1 tab QHS PO 01/02/20 21:00 01/08/20 21:40 Simvastatin (Zocor) 20 mg DAILY PO 01/03/20 09:00 01/09/20 09:06 Tamsulosin HCl (Flomax) 0.4 mg DAILY PO 01/03/20 09:00 01/09/20 09:07 Trazodone HCl (Desyrel) 25 mg QHSP PRN PO INSOMNIA 01/03/20 11:45 DERIK MONREAL MD Jan 09, 2020 11:47
[2020-01-09 14:00] VITALS: BP 106/56
[2020-01-09 20:10] VITALS: BP 129/59
[2020-01-09] MEDS: SENNA 8.6 MG TAB (SENOKOT) PO SCH (20:40)
[2020-01-09] MEDS: PREGABALIN 100 MG CAP (LYRICA) PO SCH (20:40)
[2020-01-10 05:07] VITALS: BP 127/62
[2020-01-10] MEDS: LEVOTHYROXINE 112MCG TABLET (0.112MG) PO SCH (05:24)
[2020-01-10] MEDS: IPRATROPIUM 0.5MG/ALBUTEROL 2.5MG INH SOL UD 3ML (DUONEB) NEB SCH ×3 (07:14→20:08)
--- NOTE | 2020-01-10 07:34 | IPNPDOC ---
Date Seen The patient was seen on 01/10/20. Progress Note SUBJECTIVE: patient was seen and examined at bedside. Doing well. Denies subjective fevers, cough, chest pain. Happy with PT progress. Comfortable, alert and oriented. Family in room. OBJECTIVE PHYSICAL EXAMINATION: VITAL SIGNS: Please see below. GENERAL APPEARANCE: Well nourished male, in NAD, resting at bedside chair HEENT: AT/NC, no JVD. PERRLA CARDIOVASCULAR: S1S2 +, no M/R/G LUNGS: mild rhonchi in RUL, no rales, otherwise good inspiratory effort ABDOMEN: soft, nontender, nondistended, BS + in 4 quad MUSCULOSKELETAL: No atrophy, ROM not tested EXTREMITIES: No edema, cyanosis or clubbing. NEUROLOGICAL: No focal deficits, CN 2-12 intact PSYCHIATRIC: Normal mood and affect LABORATORY DATA, IMAGING STUDIES, MICROBIOLOGY: Please see below. DVT prophylaxis ordered?: Y ASSESSMENT: 84 y/o M with PMH of HTN, atrial fibrillation on AC, recurrent PNA with current HCAP/aspiration PNA admitted to ARU for physical deconditioning and further rehabilitation, PT/OT. Completed course of cefepime 01/06/20. PLAN: 1. HCAP/possible aspiration PNA from dysphagia - Currently saturating well on RA, no increased SOB. - Sputum culture + Pseudomonas, sensitive to cefepime - blood culture neg - MRSA screen + - completed course of cefepime on 01/06/20 - HOB elevation, aspiration precautions, incentive spirometer 2. Physical deconditioning, acute on chronic. S/p fall - per ARU 3. Dysphagia with recurrent aspiration PNA -Still with some difficulty swallowing pills, advised to take drink of water prior , as his mouth may have been dry this AM - INPATIENT CODER eval: mild pharyngeal phase dysphagia, recommend level 2 solids with thin liqs. No aspiration on barium swallow. - Aspiration precautions 4. Urinary Retention - monitor PVRs 5. Afib - Currently rate controlled. - C/w metoprolol, eliquis - has pacemaker, needs battery replacement (window 0-6 mo) - Dr. Llanos was made aware on last inpatient admission, would advise clinic follow up to be scheduled this rehab admission 6. CHF - No increased SOB, chest pain, lower ext swelling. - C/w metoprolol, lasix - F/u with cardiology as mentioned above 7. CAD s/p CABG - C/w asa/statin, ARB/BB - F/u with cardiology as outpatient 8. HTN - BP controlled - C/w current meds 9. DVT px. - Eliquis BID VS, I&O, 24H, Fishbone Vital Signs/I&O Vital Signs Date Time Temp Pulse Resp B/P (MAP) Pulse Ox O2 Delivery O2 Flow Rate FiO2 01/10/20 05:07 97.7 67 18 127/62 (83) 92 Room Air I&O- Last 24 Hours up to 6 AM 01/10/20 06:00 Intake Total 1080 ml Balance 1080 ml Laboratory Data 24H LABS Laboratory Tests 2 01/09/20 09:56: Immature Granulocyte % (Auto) 1.1, Neutrophils (%) (Auto) 72.7H, Lymphocytes (%) (Auto) 14.1L, Monocytes (%) (Auto) 5.4H, Eosinophils (%) (Auto) 6.2H, Basophils (%) (Auto) 0.5, Neutrophils # (Auto) 5.4, Lymphocytes # (Auto) 1.1L, Monocytes # (Auto) 0.4, Eosinophils # (Auto) 0.5, Basophils # (Auto) 0.0, Nucleated Red Blood Cells % (auto) 0.0, Anion Gap 1L, Glomerular Filtration Rate > 60.0, Calcium Level 9.3 CBC/BMP Laboratory Tests 01/09/20 09:56 JACIEL ELISE MD Jan 10, 2020 07:34
[2020-01-10] MEDS: REMEDY PHYTOPLEX Z-GUARD PASTE 113GM TUBE (FROM STOREROOM PRODUCT) TOP SCH ×3 (09:00→20:56)
[2020-01-10] MEDS: POTASSIUM CHLORIDE 10 MEQ SR TABLET PO SCH (09:15)
[2020-01-10] MEDS: SIMVASTATIN 20 MG TAB PO SCH (09:15)
[2020-01-10] MEDS: guaiFENesin 200 MG TAB PO SCH ×3 (09:15→20:56)
[2020-01-10] MEDS: TAMSULOSIN 0.4 MG CAP PO SCH (09:16)
[2020-01-10] MEDS: PANTOPRAZOLE 40MG TAB (PROTONIX) PO SCH (09:16)
[2020-01-10] MEDS: FINASTERIDE 5 MG TAB PO SCH (09:16)
[2020-01-10] MEDS: ASPIRIN 81 MG ENTERIC TAB PO SCH (09:16)
[2020-01-10] MEDS: LACTOBACILLUS ACIDOPHILUS CAP (BACID) PO SCH ×3 (09:16→17:13)
[2020-01-10] MEDS: DOCUSATE SODIUM 100 MG CAP PO SCH ×2 (09:16→20:56)
[2020-01-10] MEDS: APIXABAN 2.5 MG TAB (ELIQUIS) PO SCH ×2 (09:16→21:02)
[2020-01-10] MEDS: MULTIVITAMINS/MINERALS THERAP 1 TAB PO SCH (09:16)
[2020-01-10] MEDS: METOPROLOL SUCC (TopROL XL) 50MG **XL** TAB PO SCH (09:17)
[2020-01-10] MEDS ORDERED: ELIQ2.5T PO (10:15)
[2020-01-10] MEDS ORDERED: FINA5TAB2 PO (10:15)
[2020-01-10] MEDS ORDERED: RISATAB3 PO (10:15)
[2020-01-10] MEDS ORDERED: ASPI81TAEC PO (10:15)
[2020-01-10] MEDS ORDERED: KLOR10TA76 PO (10:16)
[2020-01-10] MEDS ORDERED: PANT40TA29 PO (10:16)
[2020-01-10] MEDS ORDERED: SIMV20TA22 PO (10:16)
[2020-01-10] MEDS ORDERED: METO1TAB7 PO (10:16)
[2020-01-10] MEDS ORDERED: SYNT112T2 PO (10:16)
[2020-01-10] MEDS ORDERED: FLOM0.4C39 PO (10:16)
[2020-01-10 14:00] VITALS: BP 128/59
--- NOTE | 2020-01-10 14:04 | IPNPDOC ---
PM&R Progress Note DATE OF SERVICE: Jan 10, 2020 [employer] Progress Note Subjective: Patient seen in his room reporting his came in for training and that he is ready to go home tomorrow. REVIEW OF SYSTEMS: The following is a completed review of systems and has been reviewed. Review of systems otherwise unremarkable. PAIN: Patient self reports no pain EYES: No recent vision changes EARS, NOSE, & THROAT: No throat pain, +chronic dysphagia CARDIOVASCULAR: Denies chest pain or palpitations PULMONARY: Denies shortness of breath GASTROINTESTINAL: Denies constipation/diarrhea GENITOURINARY: denies dysuria MUSCULOSKELETAL: generalized weakness NEUROLOGICAL:+peripheral polyneuropathy HEMATOLOGICAL: denies easy bruising SKIN: intact PSYCHIATRIC: Unremarkable All other review of systems found to be negative. PHYSICAL EXAMINATION: VITAL SIGNS: Please see below. GENERAL: Pleasant and cooperative. No acute distress. HEENT: PERRL. Extraocular movements intact. Clear conjunctiva CARDIOVASCULAR: Regular rate and rhythm. No murmurs, rubs, or gallops LUNGS: CTA ABDOMEN: Soft, nontender, nondistended. Positive bowel sounds. Normal active bowel sounds NEUROLOGICAL: Alert and oriented times three. Cranial nerves II through XII grossly intact. Sensation diminished to light touch in stocking pattern +left foot drop EXTREMITIES: 5\5 strength bilateral upper extremities. 4/5 right hip flexors/ knee extensors, ankle DF and PF 4/5 left hip flexors, knee extensors, 2/5 ankle DF and 0/5 EHL SKIN: no sacral erythema ASSESSMENT:84-year-old M with past medical history of TIA and recurrent pne umonias who presents status post new aspiration pneumonia PLAN: 1. Rehab- PT/OT advance gait and ADls, strenghten/stretch/maintain ROM all 4 limbs, ambulating further with RW AD CLERK- foot hx of dysphagia, c/u level 2 and thins 2. NEuro- hx of TIAs with dysphagia of unclear etiology -hx of spinal stenosis s/p surgery with residual functional deficits including left foot drop, will strengthen and improve on balance training while on ARU- c/u Lyrica for spinal stenosis associated peripheral polyneuropathy- cleaner furniture consulted for left custom AFO fitting 3. Cardiac- Afib and CAD s/p CABG- c/u eliquis, ASA, Toprol- medicine consulted to assist in overall management -home lasix on hold for hx of chronic CHF, will monitor for fluid overload, daily weights, fluid restrict - hx of AAA s/p repair -HLD c/u statin 4. Resp- hx of recurrent aspiration PNAs, s/p course of CEfepime, duonebs, guaifenesin, incentive spirometry 5. - hx of prostate cancer, c/u proscar and flomax, monitor PVRs 6. Endo- hx of hypothyroidism c/u synthroid 7. DVT ppx- on eliquis 8. GI ppx-protonix 9. Pain- tylenol 10. Dispo- 01-11-20 to home, progressing towards goals, family training today Allergies Coded Allergies: No Known Allergies (Unverified , 12/29/19) Vital Signs Vital Signs Date Time Temp Pulse Resp B/P (MAP) Pulse Ox O2 Delivery O2 Flow Rate FiO2 01/10/20 09:17 61 130/68 01/10/20 05:07 97.7 18 92 Room Air Current Medications Current Medications Current Medications Medications (Trade) Dose Ordered Sig/Gunner Route PRN Reason Start Time Stop Time Status Last Admin Dose Admin Acetaminophen (Tylenol Tab) 650 mg Q4HP PRN PO fever/MILD PAIN (PS 1-4) 01/02/20 12:00 Albuterol/ Ipratropium (Duoneb (Ipr 0.5mg/Alb 2.5mg)) 3 ml RTID NEB 01/02/20 14:00 01/09/20 20:03 Apixaban (Eliquis) 2.5 mg BID PO 01/02/20 21:00 01/10/20 09:16 Aspirin (Ecotrin) 81 mg DAILY PO 01/03/20 09:00 01/10/20 09:16 Cefepime HCl 1 gm/ Dextrose 50 ml @ 100 mls/hr Q12H IV 01/02/20 18:00 01/02/20 15:05 DC Cefepime HCl 2 gm/ Dextrose 50 ml @ 100 mls/hr Q8H IV 01/02/20 17:00 01/02/20 20:17 DC Cefepime HCl 2 gm/ Dextrose 50 ml @ 100 mls/hr Q8H IV 01/02/20 21:00 01/06/20 13:29 DC 01/06/20 12:24 Docusate Sodium (Colace) 100 mg BID PO 01/02/20 21:00 01/10/20 09:16 Finasteride (Proscar) 5 mg DAILY PO 01/03/20 09:00 01/10/20 09:16 Guaifenesin (Robitussin Tab) 400 mg TID PO 01/02/20 16:00 01/10/20 09:15 Home Med (Med Rec Complete!) ASDIRECTED XX 01/02/20 14:45 01/02/20 14:48 DC Insulin Human Lispro (HumaLOG INSULIN) See Protocol Table AC SC 01/08/20 17:30 UNV Lactobacillus Acidophilus (Bacid) 1 ea WM PO 01/02/20 18:00 01/10/20 12:16 Levothyroxine Sodium (Synthroid) 112 mcg DAILY@06 PO 01/03/20 06:00 01/10/20 05:24 Metoprolol Succinate (TopROL XL) 50 mg DAILY PO 01/03/20 09:00 01/10/20 09:17 Multivitamins (Theragram-M) 1 tab DAILY PO 01/03/20 09:00 01/10/20 09:16 Pantoprazole Sodium (Protonix) 40 mg DAILY PO 01/03/20 09:00 01/10/20 09:16 Potassium Chloride (Micro-K Extencaps) 10 meq DAILY PO 01/03/20 09:00 01/10/20 09:15 Pregabalin (Lyrica) 100 mg DAILY PO 01/03/20 09:00 01/07/20 17:49 DC 01/07/20 10:36 Pregabalin (Lyrica) 100 mg QHS PO 01/08/20 21:00 01/09/20 20:40 Senna (Senokot) 1 tab QHS PO 01/02/20 21:00 01/09/20 20:40 Simvastatin (Zocor) 20 mg DAILY PO 01/03/20 09:00 01/10/20 09:15 Tamsulosin HCl (Flomax) 0.4 mg DAILY PO 01/03/20 09:00 01/10/20 09:16 Trazodone HCl (Desyrel) 25 mg QHSP PRN PO INSOMNIA 01/03/20 11:45 DERIK MONREAL MD Jan 10, 2020 14:04
[2020-01-10] MEDS: SENNA 8.6 MG TAB (SENOKOT) PO SCH (20:56)
[2020-01-10 21:00] VITALS: BP 125/57
[2020-01-10] MEDS: PREGABALIN 100 MG CAP (LYRICA) PO SCH (21:02)
[2020-01-11] MEDS: LEVOTHYROXINE 112MCG TABLET (0.112MG) PO SCH (06:12)
[2020-01-11 06:13] VITALS: BP 134/63
[2020-01-11] MEDS: IPRATROPIUM 0.5MG/ALBUTEROL 2.5MG INH SOL UD 3ML (DUONEB) NEB SCH (07:29)
[2020-01-11] MEDS: REMEDY PHYTOPLEX Z-GUARD PASTE 113GM TUBE (FROM STOREROOM PRODUCT) TOP SCH (09:00)
[2020-01-11] MEDS: FINASTERIDE 5 MG TAB PO SCH (09:10)
[2020-01-11] MEDS: APIXABAN 2.5 MG TAB (ELIQUIS) PO SCH (09:10)
[2020-01-11] MEDS: guaiFENesin 200 MG TAB PO SCH (09:10)
[2020-01-11] MEDS: ASPIRIN 81 MG ENTERIC TAB PO SCH (09:10)
[2020-01-11] MEDS: TAMSULOSIN 0.4 MG CAP PO SCH (09:10)
[2020-01-11] MEDS: PANTOPRAZOLE 40MG TAB (PROTONIX) PO SCH (09:10)
[2020-01-11 09:11] VITALS: BP 134/63
[2020-01-11] MEDS: METOPROLOL SUCC (TopROL XL) 50MG **XL** TAB PO SCH (09:11)
[2020-01-11] MEDS: MULTIVITAMINS/MINERALS THERAP 1 TAB PO SCH (09:11)
[2020-01-11] MEDS: SIMVASTATIN 20 MG TAB PO SCH (09:11)
[2020-01-11] MEDS: DOCUSATE SODIUM 100 MG CAP PO SCH (09:11)
[2020-01-11] MEDS: LACTOBACILLUS ACIDOPHILUS CAP (BACID) PO SCH (09:12)
[2020-01-11] MEDS: POTASSIUM CHLORIDE 10 MEQ SR TABLET PO SCH (09:12)
--- NOTE | 2020-01-17 12:45 | PMRDS ---
DATE OF ADMISSION: 01/02/2020 DATE OF DISCHARGE: 01/11/2020 CHIEF COMPLAINT/DISCHARGE DIAGNOSIS: Pneumonia with dysphagia in the setting of peripheral polyneuropathy. HISTORY OF PRESENT ILLNESS: This is an 84-year-old man with a past medical history of chronic dysphagia with recurrent pneumonias and hypertension with possible TIAs, spinal stenosis with peripheral polyneuropathy and left foot drop, atrial fibrillation on anticoagulation, coronary artery disease status post bypass, prostate cancer, bladder cancer, status post chemo in remission who presented to [facility] ED on 12/29/2019 complaining of cough and malaise. He was diagnosed with a new aspiration pneumonia and started on IV antibiotics and placed on a modified diet. His home Lasix dosing was held in the setting of orthostatics. His sputum grew Pseudomonas, and he was transitioned to IV Cefepime. He was found to be weak and have impairments in mobility and ADLs and deemed medically appropriate for discharge to ARU on 01/02/2020. PAST MEDICAL HISTORY: As per HPI. HOSPITAL COURSE: Patient was admitted and enrolled in a comprehensive PT, OT, speech and language pathology program. He received 24 hour nursing supervision, and weekly team meetings were held to discuss his progress. He was evaluated by Speech Therapy for his dysphagia and continued on level 2 and thins. He was also evaluated by an attorney recruiter for his left foot drop in the setting of severe peripheral polyneuropathy and was fitted for a custom AFO. His blood pressures were well controlled during his hospital course, and he showed no signs of fluid overload while his diuretic was held. He finished a course of cefepime with overall improvement in his endurance and breathing and made significant steady gains in therapy and deemed medically and functionally stable to return home on 01/11/2020 with family. DISCHARGE MEDICATIONS: As per instructions. FUNCTIONAL HISTORY ON DISCHARGE: Patient was modified independent. Able to ambulate 150 feet at a modified independent level, and at occupational therapy he was standby assist for functional transfers mod-I for dressing and upper and lower body dressing. Thank you for this referral. IFTIKHAR
== END 2020-01-11 12:10 | disposition home health service (06) | DRG 948 ==
LOC: M PM&R 14:15 → EEVIPCON 14:15
PROVIDERS: ADMIT Physical Medicine & Rehabilitation; ATTEND Physical Medicine & Rehabilitation
DX: R53.1 Weakness (principal); R13.10 Dysphagia, unspecified; I11.0 Hypertensive heart disease with heart failure; I48.91 Unspecified atrial fibrillation; I25.10 Atherosclerotic heart disease of native coronary artery without angina pectoris; G62.9 Polyneuropathy, unspecified; R26.89 Other abnormalities of gait and mobility; R33.9 Retention of urine, unspecified; M48.061 Spinal stenosis, lumbar region without neurogenic claudication; I50.9 Heart failure, unspecified; E03.9 Hypothyroidism, unspecified; M21.372 Foot drop, left foot; Z85.51 Personal history of malignant neoplasm of bladder; Z92.21 Personal history of antineoplastic chemotherapy; Z95.1 Presence of aortocoronary bypass graft; Z79.01 Long term (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 anticoagulants; Z74.09 Other reduced mobility; Z79.82 Long term (current) use of aspirin; Z79.899 Other long term (current) drug therapy; Z85.46 Personal history of malignant neoplasm of prostate; Z98.49 Cataract extraction status, unspecified eye; Z87.891 Personal history of nicotine dependence; 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 cardiac pacemaker; Z87.01 Personal history of pneumonia (recurrent)

== ENCOUNTER → 2020-01-19 | Outpatient (REF) | payer MEDICARE, BC ==
[~2020-01-19] MED LIST changes: +ASPI81TAEC PO; +PANT40TA29 PO; +RISATAB3 PO; +SYNT112T2 PO
[2020-01-19 18:05] LABS: HEMOGLOBIN A1c 5.7 %
== END ==
LOC: M SFHCPLAZ 14:30
DX: R73.9 Hyperglycemia, unspecified (principal)
CPT/HCPCS: 36415; 83036; G0463

== ENCOUNTER 2020-01-28 14:02 | Emergency (ER) | payer MEDICARE, BC ==
[~2020-01-28] VITALS: Ht 182.9 cm; Wt 100.0 kg
--- NOTE | 2020-01-28 14:53 | REPVR ---
PROCEDURE INFORMATION: Exam: CT Head Without Contrast Exam date and time: 01/28/2020 2:25 PM Age: 84 years old Clinical indication: Injury or trauma; Fall; Blunt trauma (contusions or hematomas) TECHNIQUE: Imaging protocol: Computed tomography of the head without contrast. Radiation optimization: All CT scans at this facility use at least one of these dose optimization techniques: automated exposure control; mA and/or kV adjustment per patient size (includes targeted exams where dose is matched to clinical indication); or iterative reconstruction. COMPARISON: CT Head without contrast 12/29/2019 3:19 PM FINDINGS: Brain: There is moderate ill-defined patchy hypodensity within the bilateral cerebral periventricular white matter, consistent with chronic microvascular ischemic changes. Chronic ischemic changes/lacunar infarctions are seen in bilateral basal ganglia. There is moderate diffuse cerebral atrophy present, consistent with this patient's age. Cerebral ventricles: The ventricular system demonstrates moderate diffuse compensatory enlargement. Bones/joints: Unremarkable. No acute fracture. Paranasal sinuses: Visualized sinuses are unremarkable. No fluid levels. Mastoid air cells: Visualized mastoid air cells are well aerated. Vasculature: There is atherosclerotic calcification of the bilateral cavernous carotid arteries. Soft tissues: Unremarkable. IMPRESSION: 1. No acute infarction, masses or hemorrhage is seen. No acute intracranial abnormality is identified. 2. Diffuse age-related cerebral atrophy and moderate chronic microvascular white matter ischemic changes, without evidence of an acute intracranial abnormality. 3. There has been no adverse interval change since the previous study. Electronically signed by: Jaiden Dave On 01/28/2020 14:53:54 PM
--- NOTE | 2020-01-28 14:54 | REPVR ---
PROCEDURE INFORMATION: Exam: XR Chest, 2 Views Exam date and time: 01/28/2020 2:36 PM Age: 84 years old Clinical indication: Injury or trauma; Fall; Blunt trauma (contusions or hematomas) TECHNIQUE: Imaging protocol: XR of the chest Views: 2 views. COMPARISON: CR PORTABLE CHEST X-RAY 12/29/2019 9:07 AM FINDINGS: Tubes, catheters and devices: A left-sided pacemaker is again present. Lungs: There is mild bibasilar atelectasis. The lungs are otherwise clear. Pleural space: Unremarkable. No pleural effusion. No pneumothorax. Heart/Mediastinum: The cardiomediastinal silhouette is fairly stable in appearance. Bones/joints: Median sternotomy wires are again present. IMPRESSION: No evidence for acute pulmonary disease. Electronically signed by: Clark Francis On 01/28/2020 14:54:16 PM
--- NOTE | 2020-01-28 14:56 | REPVR ---
PROCEDURE INFORMATION: Exam: CT Cervical Spine Without Contrast Exam date and time: 01/28/2020 2:25 PM Age: 84 years old Clinical indication: Injury or trauma; Fall; Blunt trauma TECHNIQUE: Imaging protocol: Computed tomography images of the cervical spine without contrast. Radiation optimization: All CT scans at this facility use at least one of these dose optimization techniques: automated exposure control; mA and/or kV adjustment per patient size (includes targeted exams where dose is matched to clinical indication); or iterative reconstruction. COMPARISON: No relevant prior studies available. FINDINGS: Vertebrae: The cervical vertebral bodies are normal height and alignment.No acute fracture or dislocation is seen.There is calcification of the anterior longitudinal ligament of the cervical spine which probably represents diffuse idiopathic skeletal hyperostosis (DISH). Discs/Spinal canal/Neural foramina: Advanced degenerative spondylotic changes are seen in the form of marked disc space narrowing, marginal osteophytes, degenerative endplate changes and severe facet arthropathy at C4-C5, C5-C6 and C6-C7 levels. There is a moderate diffuse posterior disc spur complex at these levels.There is severe spinal canal stenosis, with an AP canal dimension of 6 mm.There is severe bilateral foraminal stenosis. Epidural space: There is no evidence of epidural masses or hemorrhage. Prevertebral Space: The prevertebral soft tissues appear normal. Soft tissues: There is straightening of the cervical spine which could be secondary to positioning or muscle spasm. There are no soft tissue masses or fluid collections. Lungs: Lung apices are normal. IMPRESSION: No acute fracture or dislocation is seen. Electronically signed by: Jaiden Dave On 01/28/2020 14:56:54 PM
[2020-01-28 15:06] LABS: BASO % 0.7 % (0.0-1.0); EOS # 0.5 10^3/uL (0.0-0.5); EOS % 8.5 % (0.0-3.0); HEMATOCRIT 33.6 % (42.0-52.0); HEMOGLOBIN 10.4 g/dl (13.5-17.5); LYMPH # 1.7 10^3/uL (1.5-5.0); LYMPH % 28.7 % (24.0-44.0); MEAN CORPUSCULAR HEMOGLOBIN 30.3 pg (27.0-33.0); MONO # 0.5 10^3/uL (0.0-0.8); MONO % 8.3 % (0.0-5.0); NEUTROPHILS # 3.2 10^3/uL (1.5-8.5); NEUTROPHILS % 53.5 % (36.0-66.0); PLATELET COUNT, AUTOMATED 167 10^3/uL (150-450); RED BLOOD COUNT 3.43 10^6/uL (4.30-6.10)
[2020-01-28 15:19] LABS: INR 1.21; PROTHROMBIN TIME 15.5 SECONDS (12.5-14.3)
[2020-01-28 15:20] LABS: PARTIAL THROMBOPLASTIN TIME 32.9 SECONDS (24.2-38.5)
[2020-01-28 15:37] LABS: ALBUMIN 3.2 GM/DL (3.2-5.2); ALT/SGPT 22 U/L (12-78); BILIRUBIN,DIRECT 0.1 MG/DL (0.0-0.2); BILIRUBIN,TOTAL 0.3 MG/DL (0.2-1.0); BLOOD UREA NITROGEN 29 MG/DL (7-18); CALCIUM LEVEL 8.8 MG/DL (8.8-10.2); CARBON DIOXIDE LEVEL 27 MEQ/L (21-32); CHLORIDE LEVEL 109 MEQ/L (98-107); CK-MB VALUE MASS 3.3 NG/ML (<3.6); CPK CREATINE PHOSPHOKINASE 391 U/L (39-308); CREATININE FOR GFR 1.09 MG/DL (0.70-1.30); FREE T4 1.09 NG/DL (0.76-1.46); GLOMERULAR FILTRATION RATE > 60.0 (>35); GLUCOSE, FASTING 107 MG/DL (70-100); MB/CK RELATIVE INDEX 0.84 (< OR =4); POTASSIUM SERUM 4.2 MEQ/L (3.5-5.1); SODIUM LEVEL 140 MEQ/L (136-145); TOTAL PROTEIN 7.3 GM/DL (6.4-8.2); TROPONIN I < 0.02 NG/ML (< 0.10)
[2020-01-28 16:30] VITALS: BP 142/51
--- NOTE | 2020-01-29 20:43 | ECGEPIP ---
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
== END 2020-01-28 17:11 | disposition home or self-care (01) ==
LOC: M ED 14:02 → EDBD 14:02 → M ED 17:11
DX: S09.90XA Unspecified injury of head, initial encounter (principal); Y92.009 Unspecified place in unspecified non-institutional (private) residence as the place of occurrence of the external cause; E78.5 Hyperlipidemia, unspecified; I71.4 Abdominal aortic aneurysm, without rupture; I48.91 Unspecified atrial fibrillation; I50.9 Heart failure, unspecified; C61 Malignant neoplasm of prostate; C67.9 Malignant neoplasm of bladder, unspecified; 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 cardiac pacemaker; Y93.9 Activity, unspecified; Y99.9 Unspecified external cause status

== ENCOUNTER → 2020-02-13 | Outpatient (REF) | payer MEDICARE, BC ==
[2020-02-13 17:50] LABS: APPEARANCE, URINE CLEAR (CLEAR); BACTERIA, URINE AUTO NEGATIVE (NEGATIVE); BILIRUBIN, URINE AUTO NEGATIVE (NEGATIVE); BLOOD, URINE BLOOD 1+ (NEGATIVE); COLOR, URINE YELLOW (YELLOW); GLUCOSE, URINE (UA) AUTO NEGATIVE (NEGATIVE); KETONE, URINE AUTO NEGATIVE (NEGATIVE); LEUKOCYTE ESTERASE, URINE AUTO 2+ (NEGATIVE); NITRITE, URINE AUTO NEGATIVE (NEGATIVE); PROTEIN, URINE AUTO NEGATIVE (NEGATIVE); RBC, URINE AUTO 1 /HPF (0-3); SPECIFIC GRAVITY URINE AUTO 1.005 (1.002-1.035); SQUAMOUS EPITHELIAL CELL UR AU 1 /HPF (0-6); UROBILINOGEN, URINE AUTO 0.2 mg/dL (0.0-2.0); WBC, URINE AUTO 3 /HPF (0-3)
== END ==
LOC: M SMT 16:57
PROVIDERS: ATTEND Nurse Practitioner Women's Health
DX: N40.0 Benign prostatic hyperplasia without lower urinary tract symptoms (principal)
CPT/HCPCS: 81001; 87086; G0463

== ENCOUNTER → 2020-03-26 | Outpatient (REF) | payer MEDICARE, BC | LOC: M SMT 17:08 | PROVIDERS: ATTEND Urology | DX: C67.9 Malignant neoplasm of bladder, unspecified (principal) ==

== ENCOUNTER 2020-06-29 18:41 | Inpatient (IN) | payer MEDICARE, BC ==
[~2020-06-29] VITALS: Ht 180.3 cm; Wt 100.1 kg
[~2020-06-29 18:41] MED LIST changes: +ASPI-569 PO; -ASPI81TAEC PO
[2020-06-29 20:40] LABS: BASO % 0.4 % (0.0-1.0); EOS % 0.3 % (0.0-3.0); HEMATOCRIT 38.7 % (42.0-52.0); HEMOGLOBIN 12.1 g/dl (13.5-17.5); LYMPH # 1.3 10^3/uL (1.5-5.0); LYMPH % 12.6 % (24.0-44.0); MEAN CORPUSCULAR HEMOGLOBIN 29.5 pg (27.0-33.0); MEAN CORPUSCULAR HGB CONC 31.3 g/dl (32.0-36.5); MEAN CORPUSCULAR VOLUME 94.4 fl (80.0-96.0); MONO # 0.8 10^3/uL (0.0-0.8); MONO % 7.6 % (2.0-8.0); NEUTROPHILS # 8.2 10^3/uL (1.5-8.5); NEUTROPHILS % 78.7 % (36.0-66.0); PLATELET COUNT, AUTOMATED 134 10^3/uL (150-450); WHITE BLOOD COUNT 10.4 10^3/uL (4.0-10.0)
--- NOTE | 2020-06-29 21:06 | REPVR ---
PROCEDURE INFORMATION: Exam: XR Chest Exam date and time: 06/29/2020 8:49 PM Age: 85 years old Clinical indication: Other: Fever, malaise TECHNIQUE: Imaging protocol: XR of the chest Views: 1 view. COMPARISON: CR Chest, 2 view PA, Lat 01/28/2020 2:25 PM FINDINGS: Tubes, catheters and devices: A pacemaker from the left is again noted. Lungs: Mild left base scar is unchanged from the prior study and probably lingular. Minimal right base atelectasis or scar which is probably unchanged. There are no interval infiltrates. Pleural spaces: Unremarkable. No pleural effusion. No pneumothorax. Heart/Mediastinum: Borderline cardiomegaly in view of lordotic and AP projection. Bones/joints: Status post sternotomy. Degenerative change of the left shoulder is again noted. IMPRESSION: Essentially stable chest since 01/28/2020. No acute interval infiltrates are noted. Electronically signed by: Girish Kemp On 06/29/2020 21:06:03 PM
[2020-06-29 21:27] LABS: ALBUMIN 3.3 GM/DL (3.2-5.2); ALT/SGPT 179 U/L (12-78); BILIRUBIN,DIRECT 2.3 MG/DL (0.0-0.2); BILIRUBIN,TOTAL 3.3 MG/DL (0.2-1.0); BLOOD UREA NITROGEN 23 MG/DL (7-18); CARBON DIOXIDE LEVEL 26 MEQ/L (21-32); CHLORIDE LEVEL 112 MEQ/L (98-107); CK-MB VALUE MASS < 1.0 NG/ML (<3.6); CPK CREATINE PHOSPHOKINASE 65 U/L (39-308); CREATININE FOR GFR 1.39 MG/DL (0.70-1.30); GLOMERULAR FILTRATION RATE 51.5 (>35); GLUCOSE, FASTING 102 MG/DL (70-100); LIPASE 153 U/L (73-393); MB/CK RELATIVE INDEX 1.54 (< OR =4); POTASSIUM SERUM 4.4 MEQ/L (3.5-5.1); SODIUM LEVEL 144 MEQ/L (136-145); TOTAL PROTEIN 7.1 GM/DL (6.4-8.2); TROPONIN I 0.04 NG/ML (< 0.10)
[2020-06-29] MEDS ORDERED: ISOVUE-370 76% 100ML VIAL As Ordered ONE (22:15)
[2020-06-29 22:32] LABS: RSV AMPLIFICATION NEGATIVE (NEGATIVE)
--- NOTE | 2020-06-29 23:05 | REPVR ---
PROCEDURE INFORMATION: Exam: CT Abdomen And Pelvis With Contrast Exam date and time: 06/29/2020 10:32 PM Age: 85 years old Clinical indication: Other: Urinary retention; Additional info: Urinary retention, HX of bladder CA TECHNIQUE: Imaging protocol: Computed tomography of the abdomen and pelvis with contrast. Radiation optimization: All CT scans at this facility use at least one of these dose optimization techniques: automated exposure control; mA and/or kV adjustment per patient size (includes targeted exams where dose is matched to clinical indication); or iterative reconstruction. Contrast material: ISOVUE 370; Contrast volume: 100 ml; Contrast route: INTRAVENOUS (IV); COMPARISON: RENAL US 01/01/2020 8:42 AM FINDINGS: Tubes, catheters and devices: Pacemaker in position. Lungs: Moderate right lower lobe atelectasis or consolidation. Pleural spaces: Minimal right pleural effusion and trace fluid on the left. Liver: Normal. No mass. Gallbladder and bile ducts: Status post cholecystectomy. Pancreas: Normal. No ductal dilation. Spleen: Normal. No splenomegaly. Adrenal glands: Normal. No mass. Kidneys and ureters: Moderate right renal atrophy. There are bilateral renal cysts measuring up to 5.8 cm on the left with a Hounsfield measurement of -6 consistent with simple or benign cysts. No follow-up is recommended. Stomach and bowel: Minimal colonic diverticulosis, greatest in the sigmoid without diverticulitis. Appendix: There are no changes of appendicitis. A normal appendix is not seen. Intraperitoneal space: Unremarkable. No free air. No significant fluid collection. Vasculature: Aorto bi-iliac covered stent. There appears to be an embolization coil in the ALLEN. Lymph nodes: Unremarkable. No enlarged lymph nodes. Urinary bladder: There is a Piña catheter in the bladder. Reproductive: Unremarkable as visualized. Bones/joints: Status post sternotomy. Ankylosis of the thoracic spine to the L5 level with interruption of the ankylosis at the L1-L2 level which demonstrates interspace narrowing with vacuum phenomenon and endplate irregularity and sclerosis and facet arthropathy with mild secondary spinal stenosis at this level. Soft tissues: Unremarkable. IMPRESSION: 1. Minimal right and trace left pleural effusions with moderate right lower lobe atelectasis or consolidation. 2. 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 There are posterior osteophytes and facet arthropathy with mild secondary spinal stenosis at this level. 3. Moderate right renal atrophy. 4. Status post cholecystectomy. 5. Aorto bi-iliac covered stent. 6. Minimal colonic diverticulosis, greatest in the sigmoid without diverticulitis. 7. Ipña catheter in the bladder. Electronically signed by: Girish Kemp On 06/29/2020 23:05:27 PM
--- NOTE | 2020-06-30 00:45 | REPVR ---
PROCEDURE INFORMATION: Exam: US Abdomen, Limited; Right Upper Quadrant Exam date and time: 06/30/2020 12:17 AM Age: 85 years old Clinical indication: Fever and other: Elevated lfts; Prior surgery; Surgery date: 6+ months; Surgery type: S/P cholecystectomy; Additional info: Fever, elevated liver enzymes, eval for stone TECHNIQUE: Imaging protocol: US abdomen. Real time ultrasound with image documentation. Limited exam focused on the right upper quadrant. COMPARISON: RENAL US 01/01/2020 8:42 AM FINDINGS: Liver: The liver demonstrates no focal defects. Gallbladder: Status post cholecystectomy. Common bile duct: The CBD measures 5 mm. Pancreas: Limited visualization of the pancreas demonstrates no gross abnormalities in the head. Right kidney: The right kidney demonstrates cortical thinning measuring 7 mm and overall measures 12.4 cm in its cephalocaudad dimension with renal sinus lipomatosis and no hydronephrosis. There are several right renal cysts measuring up to 2.9 x 2.2 x 2.5 cm. IMPRESSION: 1. Status post cholecystectomy. 2. Right renal cortical thinning with renal sinus lipomatosis and several right renal cysts. No right hydronephrosis. 3. Otherwise negative right upper quadrant sonogram. The CBD measures 5 mm. Electronically signed by: Girish Kemp On 06/30/2020 00:45:48 AM
[2020-06-30] MEDS ORDERED: IBUPROFEN 800 MG TAB PO ONE (02:45)
[2020-06-30] MEDS ORDERED: PREG75CA2 PO (03:45)
[2020-06-30] MEDS ORDERED: PANT40TA29 PO (03:45)
[2020-06-30] MEDS ORDERED: KP F1200 PO (03:45)
[2020-06-30] MEDS ORDERED: ASPI81TA26 PO (03:45)
[2020-06-30] MEDS ORDERED: FLOM0.4C39 PO (03:45)
[2020-06-30] MEDS ORDERED: MAALOX 30 ML SUSP *UDC PO PRN (03:50)
[2020-06-30] MEDS ORDERED: MOM 30ML SUSPENSION UDC PO PRN (03:50)
[2020-06-30 04:00] LABS: INR 1.6; PROTHROMBIN TIME 19.4 SECONDS (12.5-14.3)
[2020-06-30 04:01] LABS: PARTIAL THROMBOPLASTIN TIME 36.1 SECONDS (24.2-38.5)
[2020-06-30] MEDS ORDERED: AZITHROMYCIN 250MG TABLET PO ONE (04:25)
--- NOTE | 2020-06-30 05:15 | HPEPDOC ---
[facility] Medical History & Physical Date of Admission Jun 30, 2020 Date of Service: Jun 30, 2020 Primary Care Physician: JUMANA ROONEY DO Attending Physician: CHRISTOPHER CARRANZA MD History and Physical CHIEF COMPLAINT: [weakness] HISTORY OF PRESENT ILLNESS: [This is a 85 y/o male with a pmh of CAD s/p CABG with pacemaker placement, bladder cancer, COPD, AAA s/p repair, and CHF who pre sents to the ED on 06/30 with his daughter with a c/c of chills, fever, weakness x1 day. Patient states that he mostly feels fine other than these symptoms. Patient admits to associated cough with dark green to brown sputum. Patient's daughter states that the patient has been increasingly lethargic and was becoming confused from his baseline for the past day. Daughter also states that all day 06/29 patient did not eat, drink or urinate and that is what prompted her to call ems to bring him in. Both patient and daughter state that he looks/feels better upon my seeing him from when he first arrived in the ED. Patient received dose of ibuprofen in ED, had dent catheter inserted which drained 700mL of urine. Patient denies dysuria, shortness of breath, chest pain, exercise intolerance, peripheral edema, headache, vision changes, syncope.] PAST MEDICAL HISTORY: 1. See HPI PAST SURGICAL HISTORY: 1. [Cataract surgery]. 2. [CABG]. 3. [Pacemaker placement 4. TURP and prostate biopsy 5. Unspecified back surgery 6. Cholecystectomy 7. AAA repair]. SOCIAL HISTORY: Marital status: []. Resides in: [home with ] Children: [daughter] Tobacco use:[smoked for many years, unsure how many] ETOH: [rarely] Illicit drug use: [no] ALLERGIES: Please see below. REVIEW OF SYSTEMS: CONSTITUTIONAL: [SEE HPI]. HEENT: [Denies URI sx]. CARDIOVASCULAR: [SEE HPI]. RESPIRATORY: [SEE HPI]. GASTROINTESTINAL: [SEE HPI]. GENITOURINARY: [SEE HPI]. SKIN: Denies rash. MUSCULOSKELETAL: [Denies joint pain]. NEUROLOGICAL: [SEE HPI]. HOME MEDICATIONS: Please see below. PHYSICAL EXAMINATION: VITAL SIGNS: see below GENERAL APPEARANCE: [This is a pleasant 85 y/o male resting comfortably in bed in no acute distress]. HEENT: [No mass or lesion. EOMI. PERRL. Scleral icterus noted. No conjunctival erythema. Nares patent. Oral mucosa mildly dry without erythema.]. CARDIOVASCULAR: [Regular rate, rhythm. No murmurs, rubs or gallops]. LUNGS: [Clear to auscultation. No wheezes, rales.]. ABDOMEN: [Soft, non-tender. ]. MUSCULOSKELETAL: [No joint deformity]. EXTREMITIES: [Cool, dry. No peripheral edema, clubbing or cyanosis. Pulses weak.]. NEUROLOGICAL: [Patient's alertness waxes and wanes. Oriented to person. Speech clear. No focal deficits.]. PSYCHIATRIC: [Mood and affect appear appropriate.]. LABORATORY DATA: See below. IMAGING: [CXR: FINDINGS: Tubes, catheters and devices: A pacemaker from the left is again noted. Lungs: Mild left base scar is unchanged from the prior study and probably lingular. Minimal right base atelectasis or scar which is probably unchanged. There are no interval infiltrates. Pleural spaces: Unremarkable. No pleural effusion. No pneumothorax. Heart/Mediastinum: Borderline cardiomegaly in view of lordotic and AP projection. Bones/joints: Status post sternotomy. Degenerative change of the left shoulder is again noted. IMPRESSION: Essentially stable chest since 01/28/2020. No acute interval infiltrates are noted. CT Abdomen Pelvis: FINDINGS: Tubes, catheters and devices: Pacemaker in position. Lungs: Moderate right lower lobe atelectasis or consolidation. Pleural spaces: Minimal right pleural effusion and trace fluid on the left. Liver: Normal. No mass. Gallbladder and bile ducts: Status post cholecystectomy. Pancreas: Normal. No ductal dilation. Spleen: Normal. No splenomegaly. Adrenal glands: Normal. No mass. Kidneys and ureters: Moderate right renal atrophy. There are bilateral renal cysts measuring up to 5.8 cm on the left with a Hounsfield measurement of -6 consistent with simple or benign cysts. No follow-up is recommended. Stomach and bowel: Minimal colonic diverticulosis, greatest in the sigmoid without diverticulitis. Appendix: There are no changes of appendicitis. A normal appendix is not seen. Intraperitoneal space: Unremarkable. No free air. No significant fluid collection. Vasculature: Aorto bi-iliac covered stent. There appears to be an embolization coil in the ALLEN. Lymph nodes: Unremarkable. No enlarged lymph nodes. Urinary bladder: There is a Dent catheter in the bladder. Reproductive: Unremarkable as visualized. Bones/joints: Status post sternotomy. Ankylosis of the thoracic spine to the L5 level with interruption of the ankylosis at the L1-L2 level which demonstrates interspace narrowing with vacuum phenomenon and endplate irregularity and sclerosis and facet arthropathy with mild secondary spinal stenosis at this level. Soft tissues: Unremarkable. IMPRESSION: 1. Minimal right and trace left pleural effusions with moderate right lower lobe atelectasis or consolidation. 2. 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 There are posterior osteophytes and facet arthropathy with mild secondary spinal stenosis at this level. 3. Moderate right renal atrophy. 4. Status post cholecystectomy. 5. Aorto bi-iliac covered stent. 6. Minimal colonic diverticulosis, greatest in the sigmoid without diverticulitis. 7. Dent catheter in the bladder. Liver US: FINDINGS: Liver: The liver demonstrates no focal defects. Gallbladder: Status post cholecystectomy. Common bile duct: The CBD measures 5 mm. Pancreas: Limited visualization of the pancreas demonstrates no gross abnormalities in the head. Right kidney: The right kidney demonstrates cortical thinning measuring 7 mm and overall measures 12.4 cm in its cephalocaudad dimension with renal sinus lipomatosis and no hydronephrosis. There are several right renal cysts measuring up to 2.9 x 2.2 x 2.5 cm. IMPRESSION: 1. Status post cholecystectomy. 2. Right renal cortical thinning with renal sinus lipomatosis and several right renal cysts. No right hydronephrosis. 3. Otherwise negative right upper quadrant sonogram. The CBD measures 5 mm. ] MICROBIOLOGY: Please see below. ASSESSMENT/PLAN: 1. [Community acquired pneumonia - Likely cause of patient's fever. Patient has recurrent history of pneumonia, a diagnosis of COPD, and a consolidation in lung bases found incidentally on ct abdomen pelvis - Begin azithromycin and ceftriaxone - I do not feel as though CT chest is indicated at this time as consolidation is visible on CT abd/pelvis - Sputum culture ordered - Patient will be admitted for IV abx and monitoring 2. AMS - Delirium vs. encephalopathy - Patient found on labs to have transaminitis and noted to have scleral icterus on exam. We will keep hepatic/metabolic encephalopathy on our ddx for now, but delirium seems to be the more likely cause of this patient's AMS, as he is more pleasantly confused than obtunded and has a known source of infection. 3. Transaminitis - Unclear etiology at this time. Hepatic vs. cholestatic - Patient also may have increased LFT's due to infection, dehydration - Patient also has thrombocytopenia, increased PT, and a low range normal albumin, potentially suggestive of liver dz. No structural dz has been found on imaging however. - Hepatitis panel ordered - We will trend LFT's, coags while patient is in the hospital 4. TRISTEN vs. CKD - Patient noted to have increased creatinine of 1.3, most recent creatinine is 1.0, however this baseline is from several months ago. - If TRISTEN, most likely a mixed presentation of pre-renal d/t dehydration from infection as well as post-renal d/t urinary retention - We will rehydrate patient and follow his renal function 5. Urinary retention - Per family, patient did not urinate for an entire day and was found to have approx 700mL in his bladder upon presentation to the ER. Patient has a hx of bladder cancer with chemo washout. Effects of chemo on bladder tissue could potentially be cause of urinary retention. - Patient has dent in place for now. - Can consider urology consult by the morning team. - continue flomax, finasteride 6. CHF - no signs of fluid overload. - ct results more indicative of pneumonia rather than chf exacerbation - continue metoprolol 7. CAD - asa, apixaban to be continued 8. Hypothyroidism - continue levothyroxine 9. Hyperlipidemia - continue simvastatin 10. Obesity BMI 30.8 complicates care DVT prophylaxis - pt already on asa and apixaban Vital Signs Vital Signs Date Time Temp Pulse Resp B/P (MAP) Pulse Ox O2 Delivery O2 Flow Rate FiO2 06/30/20 03:01 18 141/66 (91) 06/30/20 03:00 60 93 Room Air 06/30/20 01:38 100.5 Laboratory Data Labs 24H Laboratory Tests 2 06/29/20 19:47: Lactic Acid Level 1.5 06/29/20 20:10: Immature Granulocyte % (Auto) 0.4, Neutrophils (%) (Auto) 78.7H, Lymphocytes (%) (Auto) 12.6L, Monocytes (%) (Auto) 7.6, Eosinophils (%) (Auto) 0.3, Basophils (%) (Auto) 0.4, Neutrophils # (Auto) 8.2, Lymphocytes # (Auto) 1.3L, Monocytes # (Auto) 0.8, Eosinophils # (Auto) 0.0, Basophils # (Auto) 0.0, Nucleated Red Blood Cells % (auto) 0.0, Urine Color KATH, Urine Appearance HAZY, Urine pH 5.0, Urine Specific [place] 1.016, Urine Protein 1+H, Urine Glucose (UA) NEGATIVE, Urine Ketones NEGATIVE, Urine Blood 1+H, Urine Nitrite NEGATIVE, Urine Bilirubin NEGATIVE, Urine Urobilinogen 4.0H, Urine Leukocyte Esterase TRACEH, Urine WBC (Auto) 4H, Urine RBC (Auto) 17H, Urine Hyaline Casts (Auto) 0, Urine Bacteria (Auto) NEGATIVE, Urine Squamous Epithelial Cells 0, Urine Sperm (Auto) , Anion Gap 6L, Glomerular Filtration Rate 51.5, Calcium Level 9.0, Total Bilirubin 3.3H, Direct Bilirubin 2.3H, Aspartate Amino Transf (AST/SGOT) 229H, Alanine Aminotransferase (ALT/SGPT) 179H, Alkaline Phosphatase 324H, Total Creatine Kinase 65, Creatine Kinase MB < 1.0, Creatine Kinase MB Relative Index 1.54, Troponin I 0.04, Total Protein 7.1, Albumin 3.3, Albumin/Globulin Ratio 0.9, Lipase 153 06/29/20 21:44: Coronavirus (COVID-19)(PCR) NEGATIVE, Influenza Type A (RT-PCR) NEGATIVE, Influenza Type B (RT-PCR) NEGATIVE, Respiratory Syncytial Virus (PCR) NEGATIVE 06/30/20 03:11: Ammonia 23 06/30/20 03:42: Prothrombin Time 19.4H, Prothromb Time International Ratio 1.60, Activated Partial Thromboplast Time 36.1 CBC/BMP Laboratory Tests 06/29/20 20:10 Microbiology Microbiology 06/29/20 Urine Culture, Received Pending 06/29/20 Blood Culture, Received Pending 06/29/20 Blood Culture, Received Pending Home Medications Scheduled Amoxicillin/Potassium Clav (Augmentin 875-125 Tablet) 1 Each Tablet, 1 TAB PO BID Apixaban (Eliquis) 5 Mg Tablet, 2.5 MG PO BID Aspirin (Aspirin EC) 81 Mg Tablet.dr, 81 MG PO DAILY Finasteride (Finasteride) 5 Mg Tablet, 5 MG PO DAILY Fish Oil/Dha/Epa (Fish Oil 1,200 mg Fish Oil) 1 Each Capsule, 1 CAP PO BID Levothyroxine Sodium (Levothyroxine Sodium) 112 Mcg Tablet, 112 MCG PO DAILY Metoprolol Succinate (Metoprolol Succinate) 50 Mg Tab.er.24h, 50 MG PO DAILY Multivit-Min/FA/Lycopen/Lutein (Centrum Silver Tablet) 1 Each Tablet, 1 TAB PO DAILY Pantoprazole Sodium (Pantoprazole Sodium) 40 Mg Tablet.dr, 40 MG PO DAILY Potassium Chloride (Klor-Con M10) 10 Meq Tab.er.prt, 10 MEQ PO DAILY Pregabalin (Pregabalin) 75 Mg Capsule, 75 MG PO QHS Simvastatin (Simvastatin) 20 Mg Tablet, 20 MG PO DAILY Tamsulosin HCl (Flomax) 0.4 Mg Capsule, 0.4 MG PO DAILY Allergies Coded Allergies: No Known Allergies (Unverified , 12/29/19) A-FIB/CHADSVASC A-FIB History Current/History of A-Fib/PAF?: No Attending Note Attending Note Time of service 4:15am is an 85 yr old w a hx of Afib, CAD/CABG, HTN, TIA, AAA w aorto-bi illica stents, Prostate CA, Bladder CA, MRSA, Pacemaker & questionable CHF (no Echo on file) who was brought to the ER by his daughter camron for evaluation weak ness, confusion and lethargy; he will be admitted for metabolic encephalopathy likely 2/2 right sided PNA, TRISTEN vs CKD and transaminitis. Plan: treat PNA, f/u work-up for TRISTEN vs CKD, trend LFTs Rest per NEGAR Sinclair&P NANCY MCNAMARA Jun 30, 2020 05:03 CHRISTOPHER CARRANZA MD Jun 30, 2020 05:15
[2020-06-30 05:45] VITALS: BP 121/61
[2020-06-30] MEDS: NS 1,000 ML IV SCH ×4 (06:31→20:44)
[2020-06-30] MEDS: cefTRIAXone SOD 1 GM in D5W MINI-BAG PLUS 50 ML IV SCH (06:31)
[2020-06-30 07:44] VITALS: BP 123/59
[2020-06-30 08:29] LABS: HEMATOCRIT 33.4 % (42.0-52.0); HEMOGLOBIN 10.6 g/dl (13.5-17.5); MEAN CORPUSCULAR HEMOGLOBIN 29.8 pg (27.0-33.0); MEAN CORPUSCULAR HGB CONC 31.7 g/dl (32.0-36.5); MEAN CORPUSCULAR VOLUME 93.8 fl (80.0-96.0); PLATELET COUNT, AUTOMATED 130 10^3/uL (150-450); RED BLOOD COUNT 3.56 10^6/uL (4.30-6.10); WHITE BLOOD COUNT 7.7 10^3/uL (4.0-10.0)
--- NOTE | 2020-06-30 09:12 | REP ---
INDICATION: ? Pneumonia. COMPARISON: Portable chest dated 06/29/2020 TECHNIQUE: Chest CT without IV contrast. FINDINGS: There is a small infiltrate in the medial basilar segment of the right lower lobe and an accompanying small right pleural effusion. There are small curvilinear densities in the lung apices posteriorly bilaterally. This is most likely a parenchymal scarring however small infiltrates are also possible. There are no comparison CTs. No lung nodules or masses are identified. There are occasional mediastinal nodes that are upper normal size. There is no axillary lymph node enlargement. The study is insensitive for hilar lymph node enlargement in the absence of IV contrast. There is a focal aneurysm in the distal descending thoracic aorta measuring up to 4.6 cm in diameter on image 81. There is calcified atheroma throughout the thoracic aorta. Cardiac size is upper normal. There are sternotomy wires. There is a pacemaker. No pericardial effusion. The upper abdomen there are surgical clips in the gallbladder fossa. The visualized upper pole of the right kidney demonstrates Bosniak type 1 renal cortical cysts and renal cortical atrophy. The left kidney is not visualized. The superior margin of abdominal aortic stent is identified. IMPRESSION: Small right lower lobe infiltrate accompanied by a small right pleural effusion as described. Small bilateral upper lobe infiltrates versus parenchymal scarring. There are no comparison studies. Upper normal size mediastinal lymph nodes. 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 Cholecystectomy. Right renal cortical atrophy. <Electronically signed by Edgard Peguero > 06/30/20 [id number]
[2020-06-30] MEDS: APIXABAN 5 MG TAB (ELIQUIS) PO SCH ×2 (09:36→20:33)
[2020-06-30] MEDS: PANTOPRAZOLE 40MG TAB (PROTONIX) PO SCH (09:36)
[2020-06-30] MEDS: MULTIVITAMINS/MINERALS THERAP 1 TAB PO SCH (09:36)
[2020-06-30] MEDS: TAMSULOSIN 0.4 MG CAP PO SCH (09:36)
[2020-06-30] MEDS: FINASTERIDE 5 MG TAB PO SCH (09:37)
[2020-06-30] MEDS: ASPIRIN 81MG ENTERIC TABLET PO SCH (09:37)
[2020-06-30] MEDS: POTASSIUM CHLORIDE 10 MEQ SR TABLET PO SCH (09:37)
[2020-06-30] MEDS: DOCUSATE SODIUM 100MG CAPSULE PO SCH ×2 (09:37→20:33)
[2020-06-30] MEDS: METOPROLOL SUCC (TopROL XL) 50MG **XL** TAB PO SCH (09:39)
[2020-06-30] MEDS: SIMVASTATIN 20 MG TAB PO SCH (09:39)
--- NOTE | 2020-06-30 09:58 | IPN ---
PROGRESS NOTE DATE: 06/30/2020 SUBJECTIVE: Trevor is seen in PCU. He was admitted with chills, fever, weakness, cough with dark green to brown sputum and lethargy. It looks like he has improved by the time he presented in the Emergency Room. He had 700 mL of urine in his bladder when a Piña was placed. OBJECTIVE: VITAL SIGNS: Afebrile, vital signs stable. O2 saturation 94% on room air. GENERAL APPEARANCE: He is alert and conversant. He knows the month, the year, his location, and was quite conversant once he woke up. HEENT: Sclerae are a little icteric. NECK: Supple. LUNGS: Clear. HEART: Regular without murmur. ABDOMEN: Soft, nontender. No masses. EXTREMITIES: Trace peripheral edema. LABS: White count 10.4, hemoglobin 12.1, platelets 134. Sodium 144, potassium 4.4, BUN 23, creatinine 1.39 (baseline creatinine is 1.0). Bilirubin 3.3 (baseline bilirubin and other liver function tests are normal from 01/28/2020). AST 23, ALT 179, INR 1.6. Hepatitis panel pending. COVID negative. Influenza negative. IMPRESSION/PLAN: 1. Altered mental status, etiology is unknown. The only significant finding and history is a change in sputum. The only significant finding on lab work is acute kidney injury and abnormal liver function tests. CT of the abdomen and pelvis showed no liver abnormality or obstruction. Hepatitis panel is pending. Liver functions are still pending. INR is pending. Clinically he is improved from his unexplained abnormalities. 2. Question pneumonia. He is on Azithromycin and low dose ceftriaxone. No compelling evidence of pneumonia on chest x-ray or CT of the abdomen and pelvis. I have ordered a CT scan of the chest. If it shows an infiltrate, we will increase the dose of the ceftriaxone. 3. Atrial fibrillation. Continue his Eliquis. His rate is controlled with metoprolol. 4. Hyperlipidemia. Continue simvastatin 20 mg daily. 5. History of BPH. Continue finasteride and tamsulosin. 6. History of bladder cancer. 7. Acute kidney injury. He is still on 150 mL of normal saline an hour. I am waiting for his followup labs for this morning. We will adjust the IV fluid rate at that time.
[2020-06-30 10:37] LABS: ALT/SGPT 144 U/L (12-78); BILIRUBIN,TOTAL 3.3 MG/DL (0.2-1.0); BLOOD UREA NITROGEN 26 MG/DL (7-18); CALCIUM LEVEL 8.6 MG/DL (8.8-10.2); CARBON DIOXIDE LEVEL 27 MEQ/L (21-32); CHLORIDE LEVEL 111 MEQ/L (98-107); CREATININE FOR GFR 1.31 MG/DL (0.70-1.30); GLOMERULAR FILTRATION RATE 55.1 (>35); GLUCOSE, FASTING 114 MG/DL (70-100); POTASSIUM SERUM 4.1 MEQ/L (3.5-5.1); SODIUM LEVEL 144 MEQ/L (136-145); TOTAL PROTEIN 6.3 GM/DL (6.4-8.2)
[2020-06-30] MEDS: OMEGA-3 1000MG CAPSULE PO SCH (11:46)
[2020-06-30] MEDS: LEVOTHYROXINE 112MCG TABLET (0.112MG) PO SCH (11:46)
[2020-06-30 11:55] VITALS: BP 121/60
[2020-06-30 14:18] VITALS: BP 144/71
[2020-06-30] MEDS: ACETAMINOPHEN TAB 650MG DOSE (2X325MG) PO PRN (17:36)
[2020-06-30] MEDS: PREGABALIN 75 MG CAP(LYRICA) PO SCH (20:33)
[2020-06-30 22:00] VITALS: BP 140/69
[2020-07-01] MEDS: NS 1,000 ML IV SCH (03:07)
[2020-07-01] MEDS: cefTRIAXone SOD 1 GM in D5W MINI-BAG PLUS 50 ML IV SCH (04:59)
[2020-07-01] MEDS: LEVOTHYROXINE 112MCG TABLET (0.112MG) PO SCH (05:36)
[2020-07-01 06:00] VITALS: BP 124/73
[2020-07-01 07:27] LABS: HEMATOCRIT 34.8 % (42.0-52.0); HEMOGLOBIN 10.8 g/dl (13.5-17.5); MEAN CORPUSCULAR HEMOGLOBIN 29.3 pg (27.0-33.0); MEAN CORPUSCULAR VOLUME 94.3 fl (80.0-96.0); PLATELET COUNT, AUTOMATED 102 10^3/uL (150-450); RED BLOOD COUNT 3.69 10^6/uL (4.30-6.10); WHITE BLOOD COUNT 5.6 10^3/uL (4.0-10.0)
[2020-07-01 07:35] LABS: INR 1.55; PROTHROMBIN TIME 18.9 SECONDS (12.5-14.3)
[2020-07-01 07:36] LABS: PARTIAL THROMBOPLASTIN TIME 43.4 SECONDS (24.2-38.5)
[2020-07-01 07:53] LABS: ALBUMIN 2.8 GM/DL (3.2-5.2); ALT/SGPT 98 U/L (12-78); BILIRUBIN,TOTAL 2.2 MG/DL (0.2-1.0); BLOOD UREA NITROGEN 26 MG/DL (7-18); CALCIUM LEVEL 8.4 MG/DL (8.8-10.2); CARBON DIOXIDE LEVEL 24 MEQ/L (21-32); CHLORIDE LEVEL 110 MEQ/L (98-107); CREATININE FOR GFR 1.17 MG/DL (0.70-1.30); GLOMERULAR FILTRATION RATE > 60.0 (>35); GLUCOSE, FASTING 105 MG/DL (70-100); MAGNESIUM LEVEL 1.8 MG/DL (1.8-2.4); POTASSIUM SERUM 4.4 MEQ/L (3.5-5.1); SODIUM LEVEL 142 MEQ/L (136-145); TOTAL PROTEIN 6.1 GM/DL (6.4-8.2)
--- NOTE | 2020-07-01 08:06 | ECGEPIP ---
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
[2020-07-01] MEDS: FINASTERIDE 5 MG TAB PO SCH (09:38)
[2020-07-01] MEDS: MULTIVITAMINS/MINERALS THERAP 1 TAB PO SCH (09:39)
[2020-07-01] MEDS: APIXABAN 5 MG TAB (ELIQUIS) PO SCH ×2 (09:39→20:54)
[2020-07-01] MEDS: TAMSULOSIN 0.4 MG CAP PO SCH (09:39)
[2020-07-01] MEDS: ASPIRIN 81MG ENTERIC TABLET PO SCH (09:39)
[2020-07-01] MEDS: AZITHROMYCIN 250MG TABLET PO SCH (09:39)
[2020-07-01] MEDS: OMEGA-3 1000MG CAPSULE PO SCH (09:39)
[2020-07-01] MEDS: DOCUSATE SODIUM 100MG CAPSULE PO SCH ×2 (09:39→20:54)
[2020-07-01] MEDS: SIMVASTATIN 20 MG TAB PO SCH (09:39)
[2020-07-01] MEDS: POTASSIUM CHLORIDE 10 MEQ SR TABLET PO SCH (09:40)
[2020-07-01] MEDS: PANTOPRAZOLE 40MG TAB (PROTONIX) PO SCH (09:40)
[2020-07-01] MEDS: METOPROLOL SUCC (TopROL XL) 50MG **XL** TAB PO SCH (09:41)
[2020-07-01] MEDS ORDERED: cefTRIAXone SOD 1 GM in D5W MINI-BAG PLUS 50 ML IV ONE (11:00)
--- NOTE | 2020-07-01 13:44 | IPN ---
PROGRESS NOTE DATE: 07/01/2020 Trevor seems a little more alert today. Denies any shortness of breath or chest pain. Feels he is not coughing as much. PHYSICAL EXAMINATION: Afebrile. Vital signs stable, 143/73, 99% oxygen saturation. He is alert and conversant. No distress. No jugular venous distention (JVD). LUNGS: Decreased breath sounds. HEART: Regular rate and rhythm. ABDOMEN: Soft, nontender. No peripheral edema. He is still jaundiced, so he looks less icteric than yesterday. There is no asterixis present LABORATORY DATA: Blood and urine cultures are negative. Bilirubin is 2.2. Creatinine is down to 1.1. Ammonia level previous normal. AST is down 78, ALT 98. White count 5.6, hemoglobin 10.8, platelets 102. Hepatitis panel pending. IMPRESSION: 1. Altered mental status. I do not know his baseline, but he seems alert and conversant. This seems to be improved. 2. Question pneumonia. CT scan of the chest confirmed a small right lower lobe infiltrate. Maybe bilateral upper lobe infiltrates. We will continue his Rocephin but will increase the dose to one more appropriate for his age and weight. 3. Cirrhosis suspected. His INR is elevated. Liver functions are elevated but improved. I do not think this is all coming from pneumonia. I suspect he has some underlying chronic liver disease. Daily liver functions have been ordered. Hepatitis panel is pending. 4. Atrial fibrillation. Rate is controlled, and he is on Eliquis. 5. BPH. Finasteride and tamsulosin. 6. Acute kidney injury. Renal function has improved. We are going to stop his intravenous (IV) fluids. He is taking adequate oral intake at this point. I anticipate his discharge Thursday or Thursday, depending on how is liver functions trend.
[2020-07-01 14:00] VITALS: BP 147/73
[2020-07-01 17:49] VITALS: BP 133/65
[2020-07-01] MEDS: ACETAMINOPHEN TAB 650MG DOSE (2X325MG) PO PRN (18:02)
[2020-07-01] MEDS: PREGABALIN 75 MG CAP(LYRICA) PO SCH (20:54)
[2020-07-01 22:00] VITALS: BP 139/63
[2020-07-02] MEDS: LEVOTHYROXINE 112MCG TABLET (0.112MG) PO SCH (05:35)
[2020-07-02 06:00] VITALS: BP 129/63
[2020-07-02 06:53] LABS: HEMATOCRIT 33.7 % (42.0-52.0); HEMOGLOBIN 10.6 g/dl (13.5-17.5); MEAN CORPUSCULAR HEMOGLOBIN 29.4 pg (27.0-33.0); MEAN CORPUSCULAR HGB CONC 31.5 g/dl (32.0-36.5); MEAN CORPUSCULAR VOLUME 93.6 fl (80.0-96.0); PLATELET COUNT, AUTOMATED 101 10^3/uL (150-450); WHITE BLOOD COUNT 4.5 10^3/uL (4.0-10.0)
[2020-07-02 07:03] LABS: INR 1.37; PROTHROMBIN TIME 17.2 SECONDS (12.5-14.3)
[2020-07-02 07:12] LABS: ALBUMIN 2.7 GM/DL (3.2-5.2); ALT/SGPT 81 U/L (12-78); BILIRUBIN,TOTAL 1.2 MG/DL (0.2-1.0); BLOOD UREA NITROGEN 26 MG/DL (7-18); CALCIUM LEVEL 8.4 MG/DL (8.8-10.2); CARBON DIOXIDE LEVEL 26 MEQ/L (21-32); CHLORIDE LEVEL 110 MEQ/L (98-107); CREATININE FOR GFR 1.02 MG/DL (0.70-1.30); GLOMERULAR FILTRATION RATE > 60.0 (>35); GLUCOSE, FASTING 92 MG/DL (70-100); POTASSIUM SERUM 4.1 MEQ/L (3.5-5.1); SODIUM LEVEL 142 MEQ/L (136-145); TOTAL PROTEIN 6.2 GM/DL (6.4-8.2)
[2020-07-02] MEDS: cefTRIAXone SOD 2 GM in D5W MINI-BAG PLUS 50 ML IV SCH (09:21)
[2020-07-02] MEDS: OMEGA-3 1000MG CAPSULE PO SCH (09:25)
[2020-07-02] MEDS: FINASTERIDE 5 MG TAB PO SCH (09:25)
[2020-07-02] MEDS: ASPIRIN 81MG ENTERIC TABLET PO SCH (09:26)
[2020-07-02] MEDS: AZITHROMYCIN 250MG TABLET PO SCH (09:26)
[2020-07-02] MEDS: DOCUSATE SODIUM 100MG CAPSULE PO SCH ×2 (09:26→20:16)
[2020-07-02] MEDS: MULTIVITAMINS/MINERALS THERAP 1 TAB PO SCH (09:27)
[2020-07-02] MEDS: PANTOPRAZOLE 40MG TAB (PROTONIX) PO SCH (09:29)
[2020-07-02] MEDS: METOPROLOL SUCC (TopROL XL) 50MG **XL** TAB PO SCH (09:29)
[2020-07-02] MEDS: APIXABAN 2.5 MG TAB (ELIQUIS) PO SCH ×2 (09:31→20:16)
[2020-07-02] MEDS: SIMVASTATIN 20 MG TAB PO SCH (09:38)
[2020-07-02] MEDS: TAMSULOSIN 0.4 MG CAP PO SCH (09:38)
[2020-07-02] MEDS: POTASSIUM CHLORIDE 10 MEQ SR TABLET PO SCH (09:39)
[2020-07-02 09:41] LABS: HEPATITIS B SURFACE ANTIGEN NEGATIVE (NEGATIVE)
[2020-07-02 10:08] LABS: HEPATITIS B CORE ANTIBODY IGM NEGATIVE (NEGATIVE); HEPATITIS C VIRUS ABY INDEX 0.1 INDEX (<0.8)
[2020-07-02 10:11] LABS: HEPATITIS A ANTIBODY IGM NEGATIVE (NEGATIVE)
--- NOTE | 2020-07-02 12:37 | IPN ---
PROGRESS NOTE DATE: 07/01/2020 SUBJECTIVE: Trevor [facility]. He was admitted with altered mental status probably from a pneumonia. He is clinically getting better every day. He seems to be at near baseline mental status. His pneumonia is improving. Today we are starting physical therapy. Anticipate his discharge soon. He denies any shortness of breath. His sputum production has decreased. OBJECTIVE: Afebrile. Vital signs stable. Lungs are clear. Heart regular rate and rhythm. Abdomen soft and nontender. Trace peripheral edema. He is still jaundiced from his cirrhosis. LABS: White count 4.5, hemoglobin 10.6, platelets 101. Sodium 142, potassium 4.1, BUN 26, creatinine 1.0, glucose 92. Bilirubin is down to 1.2. All liver function tests are trending down. Hepatitis panel is still pending. IMPRESSION: 1. Metabolic encephalopathy secondary to pneumonia. I do not know his baseline mental status but he seems very clear today and probably at baseline. 2. Pneumonia. CT scan of the chest showed right lower lobe pneumonia. He is on Rocephin and Azithromycin. 3. Atrial fibrillation. Rate is controlled with metoprolol and he is on Eliquis for thromboembolic prophylaxis. 4. Abnormal liver function tests. Etiology is unknown. A CT scan showed no cirrhosis or other abnormality. Hepatitis panel is pending. Could be related to his pneumonia and sepsis. Follow up liver function tests are pending. 5. Acute kidney injury. Renal function is back to baseline. 6. BPH. Continue finasteride and tamsulosin. 7. Hyperlipidemia. Continue Simvastatin 20 mg daily. Today his Piña catheter comes out. Physical therapy works with him and I expect he will go home tomorrow.
[2020-07-02 14:00] VITALS: BP 155/71
[2020-07-02] MEDS: PREGABALIN 75 MG CAP(LYRICA) PO SCH (20:16)
[2020-07-02 22:00] VITALS: BP 147/65
[2020-07-03] MEDS: LEVOTHYROXINE 112MCG TABLET (0.112MG) PO SCH (05:35)
[2020-07-03 06:00] VITALS: BP 131/61
[2020-07-03 06:18] LABS: HEMATOCRIT 33.5 % (42.0-52.0); HEMOGLOBIN 10.8 g/dl (13.5-17.5); MEAN CORPUSCULAR HEMOGLOBIN 29.7 pg (27.0-33.0); MEAN CORPUSCULAR HGB CONC 32.2 g/dl (32.0-36.5); PLATELET COUNT, AUTOMATED 125 10^3/uL (150-450); RED BLOOD COUNT 3.64 10^6/uL (4.30-6.10); WHITE BLOOD COUNT 4.8 10^3/uL (4.0-10.0)
[2020-07-03 06:26] LABS: INR 1.26; PROTHROMBIN TIME 16.1 SECONDS (12.5-14.3)
[2020-07-03 06:27] LABS: PARTIAL THROMBOPLASTIN TIME 40.9 SECONDS (24.2-38.5)
[2020-07-03 06:45] LABS: ALBUMIN 2.7 GM/DL (3.2-5.2); ALT/SGPT 65 U/L (12-78); BILIRUBIN,TOTAL 0.7 MG/DL (0.2-1.0); BLOOD UREA NITROGEN 23 MG/DL (7-18); CALCIUM LEVEL 8.5 MG/DL (8.8-10.2); CARBON DIOXIDE LEVEL 26 MEQ/L (21-32); CHLORIDE LEVEL 110 MEQ/L (98-107); CREATININE FOR GFR 0.94 MG/DL (0.70-1.30); GLOMERULAR FILTRATION RATE > 60.0 (>35); GLUCOSE, FASTING 90 MG/DL (70-100); MAGNESIUM LEVEL 2.1 MG/DL (1.8-2.4); POTASSIUM SERUM 4.1 MEQ/L (3.5-5.1); SODIUM LEVEL 141 MEQ/L (136-145); TOTAL PROTEIN 6.2 GM/DL (6.4-8.2)
[2020-07-03] MEDS ORDERED: AUGM875T28 PO (09:25)
[2020-07-03] MEDS: PANTOPRAZOLE 40MG TAB (PROTONIX) PO SCH (10:19)
[2020-07-03] MEDS: AZITHROMYCIN 250MG TABLET PO SCH (10:19)
[2020-07-03] MEDS: cefTRIAXone SOD 2 GM in D5W MINI-BAG PLUS 50 ML IV SCH (10:19)
[2020-07-03] MEDS: FINASTERIDE 5 MG TAB PO SCH (10:19)
[2020-07-03] MEDS: ASPIRIN 81MG ENTERIC TABLET PO SCH (10:19)
[2020-07-03] MEDS: POTASSIUM CHLORIDE 10 MEQ SR TABLET PO SCH (10:19)
[2020-07-03] MEDS: DOCUSATE SODIUM 100MG CAPSULE PO SCH (10:19)
[2020-07-03] MEDS: SIMVASTATIN 20 MG TAB PO SCH (10:20)
[2020-07-03] MEDS: MULTIVITAMINS/MINERALS THERAP 1 TAB PO SCH (10:20)
[2020-07-03] MEDS: OMEGA-3 1000MG CAPSULE PO SCH (10:20)
[2020-07-03] MEDS: TAMSULOSIN 0.4 MG CAP PO SCH (10:20)
[2020-07-03] MEDS: APIXABAN 2.5 MG TAB (ELIQUIS) PO SCH (10:20)
[2020-07-03 10:25] VITALS: BP 176/86
[2020-07-03] MEDS: METOPROLOL SUCC (TopROL XL) 50MG **XL** TAB PO SCH (10:25)
--- NOTE | 2020-07-03 10:57 | DS.PDOC ---
Discharge Summary General Date of Admission Jul 02, 2020 at 10:30 Date of Discharge 07/03/2020 Discharge Summary PROCEDURES PERFORMED DURING STAY: [None]. 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 Patient was admitted to the hospital service for further evaluation and treatment after he was found to have pneumonia. HOSPITAL COURSE: Community acquired pneumonia - Hemodynamically stable and afebrile - Saturating well on room air - s/p Leukocytosis - Blood cultures 06/29: Negative at 72 hours - Will adjust antibiotics to by PO form for completion of antibiotic course; DC Ceftriaxone / Azithromycin; will start Augmentin - Will have outpatient follow-up with primary care provider within the next 7 days s/p Acute metabolic encephalopathy - Patient is currently oriented to person, place and time - No focal neurologic deficits Transaminitis - Improving - Hepatitis profile negative - Imaging reviewed - Will have outpatient follow up with PCP TRISTEN vs. CKD3 - Cr back to baseline Urinary retention - Patient has a hx of bladder cancer with chemo washout - s/p Piña catheter - c/w Flomax, Finasteride Chronic CHF -Appears to be well compensated - c/w Metoprolol CAD s/p CABG - c/w ASA, Eliquis, Simvastatin, Metoprolol Hypothyroidism - c/w levothyroxine DLP - c/w Simvastatin DVT prophylaxis - c/w full anticoagulation with Eliquis DISCHARGE MEDICATIONS: Please see below. ALLERGIES: Please see below. PHYSICAL EXAMINATION ON DISCHARGE: Vitals (See below) General: Lying in bed, appears comfortable, AAOx3 HEENT: NC, AT CVS: +S1S2 Lungs: Fair air entry b/l, -w/r/r Abdomen: Soft, ND, NT Extremities: No evidence of edema, - Calf tenderness LABORATORY DATA: Please see below. IMAGING: CXR 06/29: Essentially stable chest since 01/28/2020. No acute interval infiltrates are noted. Abdominal / Pelvis CT 06/29: 1. Minimal right and trace left pleural effusions with moderate right lower lobe atelectasis or consolidation. 2. 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 There are posterior osteophytes and facet arthropathy with mild secondary spinal stenosis at this level. 3. Moderate right renal atrophy. 4. Status post cholecystectomy. 5. Aorto bi-iliac covered stent. 6. Minimal colonic diverticulosis, greatest in the sigmoid without diverticulitis. 7. Piña catheter in the bladder. Liver US 06/30: 1. Status post cholecystectomy. 2. Right renal cortical thinning with renal sin us lipomatosis and several right renal cysts. No right hydronephrosis. 3. Otherwise negative right upper quadrant sonogram. The CBD measures [address] 06/29: Small right lower lobe infiltrate accompanied by a small right pleural effusion as described. Small bilateral upper lobe infiltrates versus parenchymal scarring. There are no comparison studies. Upper normal size mediastinal lymph nodes. 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 Cholecystectomy. Right renal cortical atrophy. ACTIVITY: [As tolerated]. DISCHARGE PLAN: Follow-up with primary care provider within the next 7 days Remain compliant with treatment plan and medications Return to the ER if you experience any problems DISPOSITION: Home with services DISCHARGE CONDITION: [Stable]. TIME SPENT ON DISCHARGE: 35 minutes. Vital Signs/I&Os Vital Signs Date Time Temp Pulse Resp B/P (MAP) Pulse Ox O2 Delivery O2 Flow Rate FiO2 07/03/20 10:25 112 176/86 07/03/20 06:00 98.9 18 97 Room Air I&O- Last 24 Hours up to 6 AM 07/03/20 06:00 Intake Total 1390 ml Output Total 1450 ml Balance -60 ml Laboratory Data Labs 24H Laboratory Tests 2 07/03/20 05:54: Nucleated Red Blood Cells % (auto) 0.0, Prothrombin Time 16.1H, Prothromb Time International Ratio 1.26, Activated Partial Thromboplast Time 40.9H, Anion Gap 5L, Glomerular Filtration Rate > 60.0, Calcium Level 8.5L, Magnesium Level 2.1, Total Bilirubin 0.7, Aspartate Amino Transf (AST/SGOT) 42H, Alanine Aminotransferase (ALT/SGPT) 65, Alkaline Phosphatase 235H, Total Protein 6.2L, Albumin 2.7L, Albumin/Globulin Ratio 0.8 CBC/BMP Laboratory Tests 07/03/20 05:54 Microbiology Microbiology 06/29/20 Urine Culture - Final, Complete 06/29/20 Blood Culture - Preliminary, Resulted No Growth after 72 hours. All specime... 06/29/20 Blood Culture - Preliminary, Resulted No Growth after 72 hours. All specime... Discharge Medications Scheduled Amoxicillin/Potassium Clav (Augmentin 875-125 Tablet) 1 Each Tablet, 1 TAB PO BID Apixaban (Eliquis) 5 Mg Tablet, 2.5 MG PO BID, (Reported) Aspirin (Aspirin EC) 81 Mg Tablet.dr, 81 MG PO DAILY, (Reported) Finasteride (Finasteride) 5 Mg Tablet, 5 MG PO DAILY, (Reported) Fish Oil/Dha/Epa (Fish Oil 1,200 mg Fish Oil) 1 Each Capsule, 1 CAP PO BID, (Reported) Levothyroxine Sodium (Levothyroxine Sodium) 112 Mcg Tablet, 112 MCG PO DAILY, (Reported) Metoprolol Succinate (Metoprolol Succinate) 50 Mg Tab.er.24h, 50 MG PO DAILY, (Reported) Multivit-Min/FA/Lycopen/Lutein (Centrum Silver Tablet) 1 Each Tablet, 1 TAB PO DAILY, (Reported) Pantoprazole Sodium (Pantoprazole Sodium) 40 Mg Tablet.dr, 40 MG PO DAILY, (Repo rted) Potassium Chloride (Klor-Con M10) 10 Meq Tab.er.prt, 10 MEQ PO DAILY, (Reported) Pregabalin (Pregabalin) 75 Mg Capsule, 75 MG PO QHS, (Reported) Simvastatin (Simvastatin) 20 Mg Tablet, 20 MG PO DAILY, (Reported) Tamsulosin HCl (Flomax) 0.4 Mg Capsule, 0.4 MG PO DAILY, (Reported) Allergies Coded Allergies: No Known Allergies (Unverified , 12/29/19) JOAO CREWS MD Jul 03, 2020 10:57
== END 2020-07-03 12:00 | disposition home health service (06) | DRG 193 ==
LOC: EDBD 18:41 → M ED 18:41 → M ED INP 06-30 03:01 → INTOOBSV 06-30 03:01 → ENRESERV 06-30 03:56 → M PCU 06-30 05:35 → M MSPAV 06-30 14:14 → OBSVTOIN 07-02 10:30
PROVIDERS: ADMIT Internal Medicine; ATTEND Internal Medicine
DX: J18.9 Pneumonia, unspecified organism (principal); G93.41 Metabolic encephalopathy; J44.0 Chronic obstructive pulmonary disease with (acute) lower respiratory infection; N17.9 Acute kidney failure, unspecified; I25.10 Atherosclerotic heart disease of native coronary artery without angina pectoris; I50.9 Heart failure, unspecified; Z95.1 Presence of aortocoronary bypass graft; 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 cardiac pacemaker; R33.9 Retention of urine, unspecified; E66.9 Obesity, unspecified; N18.30 Chronic kidney disease, stage 3 unspecified; I48.91 Unspecified atrial fibrillation; R74.01 Elevation of levels of liver transaminase levels; K74.60 Unspecified cirrhosis of liver; N40.1 Benign prostatic hyperplasia with lower urinary tract symptoms; E78.5 Hyperlipidemia, unspecified; Z90.49 Acquired absence of other specified parts of digestive tract; Z87.891 Personal history of nicotine dependence; Z85.51 Personal history of malignant neoplasm of bladder; Z92.21 Personal history of antineoplastic chemotherapy; Z68.30 Body mass index [BMI] 30.0-30.9, adult; Z20.822 Contact with and (suspected) exposure to COVID-19; Z79.01 Long term (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 anticoagulants; Z79.82 Long term (current) use of aspirin; Z79.899 Other long term (current) drug therapy

== ENCOUNTER 2020-07-09 13:13 | Emergency (ER) | payer MEDICARE, BC ==
[~2020-07-09] VITALS: Ht 180.3 cm; Wt 97.3 kg
[~2020-07-09 13:13] MED LIST changes: +ASPI81TA26 PO; +AUGM875T28 PO; +KP F1200 PO; +PREG75CA2 PO
--- NOTE | 2020-07-09 14:21 | REP ---
INDICATION: fall COMPARISON: None. TECHNIQUE: AP, lateral, bilateral oblique views. FINDINGS: Age-related degenerative changes are appreciated along with posttraumatic arthritic changes suggesting old injuries. Moderate soft tissue swelling noted, but no obvious acute fracture is identifiable. IMPRESSION: 1. Moderate swelling along with age-related osteopenia and degenerative changes as well as evidence for old injuries. No obvious acute fracture identified. <Electronically signed by Goyo Alvarado > 07/09/20 [id number]
--- NOTE | 2020-07-09 14:22 | REP ---
INDICATION: fall COMPARISON: None. TECHNIQUE: AP, lateral, bilateral oblique views . FINDINGS: Generalized age-related degenerative changes. No obvious acute fracture identified. IMPRESSION: No obvious acute fracture identified. <Electronically signed by Goyo Alvarado > 07/09/20 [id number]
[2020-07-09 17:45] VITALS: BP 176/84
== END 2020-07-09 17:46 | disposition home or self-care (01) ==
LOC: M ED 13:13
DX: R22.42 Localized swelling, mass and lump, left lower limb (principal); I11.0 Hypertensive heart disease with heart failure; I50.9 Heart failure, unspecified; J44.9 Chronic obstructive pulmonary disease, unspecified; E03.9 Hypothyroidism, unspecified; 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 cardiac pacemaker; Z79.899 Other long term (current) drug therapy; Z79.890 Hormone replacement therapy; Z79.01 Long term (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 anticoagulants

== ENCOUNTER → 2020-07-17 | Outpatient (REF) | payer MEDICARE, BC ==
[2020-07-17 14:50] LABS: APPEARANCE, URINE HAZY (CLEAR); BACTERIA, URINE AUTO NEGATIVE (NEGATIVE); BILIRUBIN, URINE AUTO NEGATIVE (NEGATIVE); BLOOD, URINE BLOOD 1+ (NEGATIVE); COLOR, URINE YELLOW (YELLOW); GLUCOSE, URINE (UA) AUTO NEGATIVE (NEGATIVE); KETONE, URINE AUTO NEGATIVE (NEGATIVE); LEUKOCYTE ESTERASE, URINE AUTO 2+ (NEGATIVE); NITRITE, URINE AUTO NEGATIVE (NEGATIVE); PROTEIN, URINE AUTO NEGATIVE (NEGATIVE); RBC, URINE AUTO 3 /HPF (0-3); SPECIFIC GRAVITY URINE AUTO 1.009 (1.002-1.035); SQUAMOUS EPITHELIAL CELL UR AU 3 /HPF (0-6); UROBILINOGEN, URINE AUTO 0.2 mg/dL (0.0-2.0); WBC, URINE AUTO 9 /HPF (0-3)
== END ==
LOC: M SMT 13:39
PROVIDERS: ATTEND Nurse Practitioner Women's Health
DX: N40.0 Benign prostatic hyperplasia without lower urinary tract symptoms (principal)
CPT/HCPCS: 51798; 81001; 87086; G0463

== ENCOUNTER → 2020-07-18 | Outpatient (CLI) | payer MEDICARE, BC | LOC: M LABSMTC 09:38 | PROVIDERS: ATTEND Anesthesiology | DX: Z01.812 Encounter for preprocedural laboratory examination (principal); Z20.822 Contact with and (suspected) exposure to COVID-19 ==

== ENCOUNTER 2020-07-19 11:00 | Day surgery (SDC) | payer MEDICARE, BC ==
[~2020-07-19] VITALS: Ht 182.9 cm; Wt 95.7 kg
[~2020-07-19 11:00] MED LIST changes: +LIDOCAINE 1% SDV 30ML VIAL As Ordered ONE; +LR 1,000 ML IV ONE; +ceFAZolin SOD 2 GM in IV 1 EA IV ONE
[2020-07-19] MEDS ORDERED: BACITRACIN PWD 50,000 UNITS VIAL As Ordered ONE (12:13)
[2020-07-19] MEDS ORDERED: LIDOCAINE 2% 100MG/5ML SDV (FOR ANES.) As Ordered ONE (12:50)
[2020-07-19] MEDS ORDERED: propofoL 200 MG/20 ML VIAL As Ordered ONE (12:50)
[2020-07-19] MEDS ORDERED: fentaNYL 100 MCG/2 ML INJECTION (J3010) As Ordered ONE (12:51)
[2020-07-19 14:10] VITALS: BP 139/66
--- NOTE | 2020-07-19 15:02 | RO ---
OPERATIVE NOTE DATE OF OPERATION: 07/19/2020 PREOPERATIVE DIAGNOSES: 1. Pacemaker battery depletion. 2. Permanent atrial fibrillation. 3. Sinus node dysfunction/AV block (unspecified). 4. 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 POSTOPERATIVE DIAGNOSES: 1. Pacemaker battery depletion. 2. Permanent atrial fibrillation. 3. Sinus node dysfunction/AV block (unspecified). 4. 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 PROCEDURES: 1. Explantation of depleted dual chamber pulse generator. 2. Capping off old atrial pacing lead. 3. Testing old ventricular pacing lead. 4. Implantation of single chamber ventricular demand pacemaker pulse generator. IMPLANTING APPIAN DEVELOPER: Adam Llanos MD. ANESTHESIOLOGIST: Vickey Ohara DO. BANQUET SERVER ON CALL: TYPE OF ANESTHESIA: Monitored local anesthesia. CLINICAL SUMMARY: This 85-year-old resident of [place] is known to my cardiology practice following his return to the [facility] from [place] one year ago. 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 On his current level of activity, he still feels somewhat restricted because of chronic low back pain and left leg and foot numbness with left foot drop (wearing a brace). He is able to walk slowly behind a cart while shopping but customarily does not walk further than 25-50 feet using his walker. On his current level of activity has been free of cardiovascular complaint. Sleeps without orthopnea. Nocturia x1 is chronic. Has chronic positional unsteadiness and will occasionally fall if he is not careful using his walker. He is unable to get up by himself. He has been followed on a regular basis for pacemaker performance and recently found to have his pacemaker battery at the elective replacement indicator. His current surgical replacement was scheduled. PHYSICAL EXAMINATION: On examination, he is a pleasant, overweight, barrel chested, elderly male who moves very slowly. He laid comfortably with head of the bed elevated 30 degrees. No pallor or cyanosis. Trachea midline. Neck veins were at the level of the sternal angle. Slightly increased anteroposterior chest diameter with slightly reduced chest expansion bilaterally. Well healed sternotomy incision following his prior bypass surgery. Well healed left subclavian pacemaker incision from pacemaker implant August 02, 2012, while in [place]. Good air entry over both lung horn with no inspiratory rales but slight prolongation of expiration. No audible wheeze. Apical impulse not palpable. His heart sounds were quite distant, unable to detect S2 splitting or gallop or murmur. Normal carotid upstrokes and volume with no bruits. Femoral pulses were symmetrical and normal. Pedal pulses were symmetrically reduced. No other pedal edema. Soft, overweight abdomen with lower abdominal pannus. No palpable hepatosplenomegaly. Bright, alert, and oriented and gave me a lucid history. Walks slowly with a walker and has a left leg foot drop brace. No other obvious joint deformities. LABORATORY DATA: EKG June 06, 2020, showed underlying atrial fibrillation with consistent ventricular paced rhythm at 60 BPM. Paced QRS complexes with left axis and LBBB configuration in keeping with RV apical stimulation. Last blood work February 2020 showed a hemoglobin of 11.4 which is stable. Normal white blood cell count and platelet count. Electrolytes were in balance with potassium 4.4. Normal BUN and creatinine measuring 19 and 1.1. Random glucose 95. Serum calcium 9.4 with normal liver function studies and albumin. DESCRIPTION OF PROCEDURE: The patient in the fasting state having signed informed consent and having received Ancef 2 grams IV premedication was taken to the operating theater. Numerous skin electrodes were applied to facility continuous electrocardiographic monitoring. The left subclavian region at the site of his old pacemaker implant was prepped and draped in the usual fashion. The skin over his old incision was infiltrated with 1% Xylocaine, and a 5 cm linear incision was made over the same site. Careful dissection was then performed down to the level of his depleted pacemaker which was explanted ([employer] model number 5826, serial number [id number], originally implanted August 02, 2012). His individual atrial and ventricular pacing leads were then disconnected and tested. His atrial lead showed consistent underlying atrial fibrillation/flutter ([employer] model number 2088T, serial number [id number]), and this was capped off and placed back in his pacemaker pocket. His ventricular lead ([employer] model number 1948, serial number [id number]) was tested and showed a stimulation threshold of 0.5 V/0.4 ms/impedance 660 ohms. His R wave amplitude measured 9.0 mV. His old pacer pocket was thoroughly irrigated with a bacitracin solution. A new single chamber pulse generator was then connected to his old pacing lead. His new generator is [employer] model number [id number], serial number [id number]. Appropriate VVI pacing was documented. The new pulse generator was placed in the pocket. The subcutaneous tissues were then approximated using a running chromic suture, and the skin was closed using jessica. A dry dressing was applied, and the patient was returned to the recovery room in good condition. No apparent complications. Estimated blood loss 1 ml. He will be monitored in the recovery room until he is alert and ambulatory, and he will be discharged home. He has been instructed to perform only light activities of daily living with his left arm until his jessica are removed in my office July 26, 2020, at 9:30 a.m. We would also ask he would keep his incision dry until that time. His diet will resume, no added salt, low fat, low cholesterol. He should be able to ambulate as he had before. His medications will resume, aspirin 81 mg daily, finasteride 5 mg daily, levothyroxine 112 mcg daily, metoprolol succinate ER 50 mg daily, multivitamin one tablet daily, potassium chloride 10 mEq daily, simvastatin 20 mg daily, Protonix 40 mg daily, probiotic one tablet daily, Flomax 0.4 mg daily, Lyrica 75 mg daily, and omega 3 1,000 mg p.o. t.i.d. His Eliquis 2.5 mg b.i.d. will be started tomorrow. We have encouraged him to contact us promptly for any abnormal erythema, swelling, or discharge.
== END 2020-07-19 14:28 | disposition home or self-care (01) ==
LOC: M SDC 11:00
PROVIDERS: ATTEND Internal Medicine Cardiovascular Disease
DX: I49.5 Sick sinus syndrome (principal); Z45.010 Encounter for checking and testing of cardiac pacemaker pulse generator [battery]; I45.10 Unspecified right bundle-branch block; I48.91 Unspecified atrial fibrillation; I10 Essential (primary) hypertension; I25.10 Atherosclerotic heart disease of native coronary artery without angina pectoris; E03.9 Hypothyroidism, unspecified; Z85.46 Personal history of malignant neoplasm of prostate; Z85.51 Personal history of malignant neoplasm of bladder; Z79.01 Long term (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 anticoagulants; Z79.82 Long term (current) use of aspirin; Z79.899 Other long term (current) drug therapy; Z87.891 Personal history of nicotine dependence
CPT/HCPCS: 33227; C1786; J0690; J3010

== ENCOUNTER → 2020-08-21 | Outpatient (CLI) | payer MEDICARE, BC ==
[~2020-08-21] MED LIST changes: -LIDOCAINE 1% SDV 30ML VIAL As Ordered ONE; -LR 1,000 ML IV ONE; -ceFAZolin SOD 2 GM in IV 1 EA IV ONE
--- NOTE | 2020-08-21 15:45 | REP ---
INDICATION: CHF EVAL FOR INCREASED CEPHALIZATION. COMPARISON: 06/29/2020 a portable exam TECHNIQUE: Two views FINDINGS: The cardiomediastinal silhouette is unchanged. Note is again made of previous median sternotomy. The dual chamber bipolar pacemaker devices unchanged. The lung horn are stable. Chronic fibrotic changes are noted status quo. No acute patchy parenchymal opacities or pleural effusions have developed. IMPRESSION: No significant change from the prior exam. There is no evidence of acute cardiopulmonary disease. <Electronically signed by Lizandro Bush > 08/21/20 [id number]
== END ==
LOC: M WUC 15:23
PROVIDERS: ATTEND Internal Medicine
DX: I50.9 Heart failure, unspecified (principal); 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 cardiac pacemaker

== ENCOUNTER 2020-08-29 09:41 | Inpatient (IN) | payer MEDICARE, BC ==
[~2020-08-29] VITALS: Ht 182.9 cm; Wt 100.0 kg
[2020-08-29 10:11] LABS: BASO % 0.2 % (0.0-1.0); EOS % 0.2 % (0.0-3.0); HEMATOCRIT 35.1 % (42.0-52.0); HEMOGLOBIN 11.2 g/dl (13.5-17.5); MEAN CORPUSCULAR HEMOGLOBIN 30.2 pg (27.0-33.0); MEAN CORPUSCULAR HGB CONC 31.9 g/dl (32.0-36.5); MEAN CORPUSCULAR VOLUME 94.6 fl (80.0-96.0); MONO % 8.2 % (2.0-8.0); NEUTROPHILS # 10.6 10^3/uL (1.5-8.5); NEUTROPHILS % 82.9 % (36.0-66.0); PLATELET COUNT, AUTOMATED 150 10^3/uL (150-450); RED BLOOD COUNT 3.71 10^6/uL (4.30-6.10); WHITE BLOOD COUNT 12.7 10^3/uL (4.0-10.0)
--- NOTE | 2020-08-29 10:30 | REP ---
INDICATION: TRAUMA. COMPARISON: 08/21/2020 latest prior TECHNIQUE: Portable FINDINGS: Cardiomediastinal silhouette is unchanged. Once again, there is cardiomegaly accentuated by technique. There is a new patchy opacity in the right lung base. There is new slight left CP angle blunting. The dual chamber bipolar pacemaker devices unchanged. Note is again made of previous median sternotomy. There is no change in the osseous structures. IMPRESSION: New patchy right lung base opacities pneumonia versus subsegmental atelectasis. 1. New small left pleural effusion. 2. Other findings as described above. <Electronically signed by Lizandro Bush > 08/29/20 1027
[2020-08-29 10:44] LABS: ALBUMIN 3.2 GM/DL (3.2-5.2); ALT/SGPT 25 U/L (12-78); BILIRUBIN,DIRECT 0.6 MG/DL (0.0-0.2); BILIRUBIN,TOTAL 1.5 MG/DL (0.2-1.0); BLOOD UREA NITROGEN 35 MG/DL (7-18); CALCIUM LEVEL 8.4 MG/DL (8.8-10.2); CARBON DIOXIDE LEVEL 29 MEQ/L (21-32); CHLORIDE LEVEL 107 MEQ/L (98-107); CK-MB VALUE MASS < 1.0 NG/ML (<3.6); CPK CREATINE PHOSPHOKINASE 39 U/L (39-308); CREATININE FOR GFR 1.45 MG/DL (0.70-1.30); GLUCOSE, FASTING 110 MG/DL (70-100); MB/CK RELATIVE INDEX 2.56 (< OR =4); POTASSIUM SERUM 4.1 MEQ/L (3.5-5.1); SODIUM LEVEL 142 MEQ/L (136-145); TOTAL PROTEIN 7.3 GM/DL (6.4-8.2); TROPONIN I < 0.02 NG/ML (< 0.10)
[2020-08-29] MEDS ORDERED: cefTRIAXone SOD 1 GM in D5W MINI-BAG PLUS 50 ML IV ONE (11:30)
[2020-08-29] MEDS ORDERED: AZITHROMYCIN INJ 500 MG, VIAL MATE ADAPTER 1 EACH in NS 250 ML IV ONE (11:30)
[2020-08-29] MEDS ORDERED: ELIQ2.5T PO (12:23)
[2020-08-29] MEDS ORDERED: ATOR1TAB21 PO (12:23)
[2020-08-29] MEDS ORDERED: TORS20TA2 PO (12:23)
[2020-08-29] MEDS ORDERED: MOM 30ML SUSPENSION UDC PO PRN (12:55)
[2020-08-29] MEDS ORDERED: ACETAMINOPHEN TAB 650MG DOSE (2X325MG) PO PRN (12:55)
[2020-08-29] MEDS ORDERED: NS 1,000 ML IV SCH (12:55)
[2020-08-29] MEDS ORDERED: IPRATROPIUM 0.5MG/ALBUTEROL 2.5MG INH SOL UD 3ML (DUONEB) NEB PRN (13:20)
--- NOTE | 2020-08-29 13:45 | HPEPDOC ---
[facility] Medical History & Physical Date of Admission August 29, 2020 Date of Service: August 29, 2020 Primary Care Physician: JUMANA ROONEY DO Attending Physician: JAMES ACUÑA MD History and Physical CHIEF COMPLAINT: Cough and Fatigue HISTORY OF PRESENT ILLNESS: Patient is a 85 year old male with a past medical history significant for CAD s/p CABG, Atrial fibrillation on Eliquis, me toprolol, Pacemaker, bladder cancer, AAA s/p repair, and HFpEF who presented to the [facility] ER with complaint of worsening cough and generalized weakness/fatigue over the past week but worse since yesterday. Patient denies any fevers but states that he has had chills on and off throughout the day. Patients who is present at bedside had stated that the patient has developed a worse cough lately with sputum production. Additionally, he has appeared more tired especially since yesterday. The patient denies any shortness of breath. He denies any chest pain. On presentation to the ER the patient was vitally stable. He was found to have a leukocytosis. Chest X-ray demonstrated a right lung base opacity and small left sided pleural effusion. Additionally patient was noted to have an increased Cr from baseline. Blood cultures were drawn in the ED. Patient was given a dose of Rocephin and Azithromycin. Hospitalist service was consulted for further evaluation and management PAST MEDICAL HISTORY: 1. CAD s/p CABG 2. Atrial Fibrillation s/p Pacemaker 3. Bladder cancer 4. AAA s/p repair 5. HFpEF 6. Hypertension 7. Recurrent Pneumonia 8. ?COPD (recently evaluated at Pulmonary Medicine and told he does not have COPD) PAST SURGICAL HISTORY: 1. Cholecystectomy 2. Back Surgery 3. AAA repair 4. Pacemaker placement with recent battery exchange 5. TURP with prostate biopsy SOCIAL HISTORY: Patient lives at home with his . He is independent with his ADLs. Patient is a former smoker. He quit smoking 20 years ago. He had started smoking when he was 16 and smoked about 2 ppd at his most. He denies any IV or illicit drug use. He admits to occasional alcohol use. His PCP is Dr. Rooney. His Cooker Soda is Dr. Llanos FAMILY HISTORY: Patients father of lung cancer likely 2/2 smoking. His mother of natural causes in her 90's. He has one brother and two sisters. Both of his sisters have from natural causes. His brother is currently alive and without any significant medical condition to his knowledge ALLERGIES: Please see below. REVIEW OF SYSTEMS: CONSTITUTIONAL: Denies fevers. Admits to chills. Denies unintentional weight loss. Denies night sweats. Admits to fatigue HEENT: Admits to some difficulty swallowing at time. Denies pain on swallowing CARDIOVASCULAR: Denies chest pain, pressure. Denies palpitations, or feelings of the heart racing RESPIRATORY: Denies shortness of breath. Admits to cough with sputum production. Denies hemoptysis GASTROINTESTINAL: Denies abdominal pain, nausea, vomiting, diarrhea or constipation GENITOURINARY: Denies dysuria. Denies urgency frequency. Denies urinary hesitancy SKIN: Admits to a blister on this left foot that burst. Otherwise denies any rashes or lesions MUSCULOSKELETAL: Denies any muscle weakness but states he feels overall weak NEUROLOGICAL: Denies changes in gait or speech from baseline PSYCHIATRIC: Denies depression or anxiety ENDOCRINE: Denies heat intolerance or cold intolerance. Denies diabetes mellitus type 2 HEMATOLOGIC/LYMPHATIC: Denies easy bruising or bleeding. Denies DVT or PE HOME MEDICATIONS: Please see below. PHYSICAL EXAMINATION: VITAL SIGNS: Temperature 99.4, pulse 50, respiratory rate 18, blood pressure 149/66, pulse oximetry 98% on room air. GENERAL APPEARANCE: Awake, alert, and oriented. Appears in no acute distress. Is ill appearing HEENT: Atraumatic, normocephalic. eyes are nonicteric. Trachea is midline. Mucous membranes are slightly dry CARDIOVASCULAR: Normal S1, S2. Bradycardic rate. Regular rhythm. No clicks, rubs, or murmurs LUNGS: Decreased breath sounds throughout. Scattered rhonchi in the right lower and mid lung horn. Symmetric chest expansion. Bronchial breath sounds present ABDOMEN: Soft, nondistended. Nontender. Normoactive bowel sounds throughout EXTREMITIES: Full and equal pulses in bilateral upper and lower extremities. Area of healing ulceration on the left dorsal foot. Bilateral feet are dry with onychomycosis bilaterally NEUROLOGICAL: No focal neurological deficits PSYCHIATRIC: Mood and affect appear appropriate LABORATORY DATA: See below. IMAGING: INDICATION: TRAUMA. COMPARISON: 08/21/2020 latest prior TECHNIQUE: Portable FINDINGS: Cardiomediastinal silhouette is unchanged. Once again, there is cardiomegaly accentuated by technique. There is a new patchy opacity in the right lung base. There is new slight left CP angle blunting. The dual chamber bipolar pacemaker devices unchanged. Note is again made of previous median sternotomy. There is no change in the osseous structures. IMPRESSION: New patchy right lung base opacities pneumonia versus subsegmental atelectasis. 1. New small left pleural effusion. 2. Other findings as described above. MICROBIOLOGY: Please see below. ASSESSMENT: Patient is a 85 year old male a past medical history significant for CAD s/p CABG, atrial fibrillation on eliquis and metoprolol, pacemaker placement, AAA s/p repair, and recurrent pneumonia who presented to the [facility] ER with complaint of cough and generalized fatigue for a week that worsened over the past day. On presentation to the ER patient was vitally stable with a leukocytosis and chest x-ray demonstrating a right lung field opacity . PLAN: 1. Right Lower lobe pneumonia -Patient presenting with a cough, chills, and weakness. He has a leukocytosis and chest x-ray demonstrating an opacity in the right lung horn. Patient has had recurrent pneumonias. He does admit to moments of dysphagia and choking. Possible that his recurrent pneumonia is secondary to aspiration vs CAP -Patient received a dose of Rocephin and Azithromycin in the ED. Will start Rocephin and Doxycycline on admission -Speech and swallow eval for possible aspiration -Will keep NPO until speech and swallow Eval -Acapella, incentive spirometry -CRP, Procalcitonin are pending -Blood cultures pending 2. Acute Kidney injury in setting of Chronic Kidney Disease likely pre-renal -Patient has baseline Cr of 1.0. Patient has decreased oral intake as well as with current pneumonia. He was also recently started on Lasix. His Cr is 1.45 today. Clinically the patient appears dry. -Will start IV hydration -Avoid nephrotoxic agents -Will trend Cr. -Will obtain Urinalysis 3. Bradycardia -Patent has a pacemaker with HR set point of 50bpm. He is also on Metoprolol outpatient. It is possible that his dose of metoprolol is too high resulting in chronic pacing. Will hold his Metoprolol. If patient is truly paced at 50bpm then it is possible that his fatigue is secondary to his slow heart rate 4. Atrial Fibrillation -Patient has history of atrial fibrillation. He is currently on Eliquis. He is currently ventricularly paced. Will hold his metoprolol as he is currently paced at 50bpm 5. Elevated Bilirubin -Total bilirubin elevated at 1.5. Direct bilirubin is 0.6. Mostly unconjugated which could suggest a [place]. This can be expected in acute illness. Will continue to trend. 6. Chronic Anemia -Patient has a baseline Hgb of 10-11. He is currently at baseline. He is on Aspirin and Eliquis. Will order Iron studies. Patient is currently at his baseline Hgb 7. HFpEF -Patient recently started on Lasix. Patient appears dry. Will hold lasix. Will monitor. 8. Neuropathy/leg pain -will continue Lyrica 9. GERD -Continue Protonix 10. BPH -Continue Finasteride and Flomax 11. Hypothyroidism -Continue Synthroid 12. CAD s/p CABG -Continue Aspirin and Atorvastatin 13. History of Suspected COPD -Patient had stated that he was previously diagnosed with COPD when living in [place]. However he had recently been evaluated by Pulmonary Medicine where he received PFTs and was told that he does not have COPD. He is currently not on any inhalers at home 14. Nutrition -NPO until speech and swallow eval. Dietary recommendations per speech and swallow 15. DVT Prophylaxis -Continue Eliquis Vital Signs Vital Signs Date Time Temp Pulse Resp B/P (MAP) Pulse Ox O2 Delivery O2 Flow Rate FiO2 08/29/20 10:00 99.4 50 18 149/66 (93) 98 Room Air Laboratory Data Labs 24H Laboratory Tests 2 08/29/20 09:52: Immature Granulocyte % (Auto) 0.5, Neutrophils (%) (Auto) 82.9H, Lymphocytes (%) (Auto) 8.0L, Monocytes (%) (Auto) 8.2H, Eosinophils (%) (Auto) 0.2, Basophils (%) (Auto) 0.2, Neutrophils # (Auto) 10.6H, Lymphocytes # (Auto) 1.0L, Monocytes # (Auto) 1.0H, Eosinophils # (Auto) 0.0, Basophils # (Auto) 0.0, Nucleated Red Blood Cells % (auto) 0.0, Anion Gap 6L, Glomerular Filtration Rate 49.0, Calcium Level 8.4L, Total Bilirubin 1.5H, Direct Bilirubin 0.6H, Aspartate Amino Transf (AST/SGOT) 32, Alanine Aminotransferase (ALT/SGPT) 25, Alkaline Phosphatase 154H, Total Creatine Kinase 39, Creatine Kinase MB < 1.0, Creatine Kinase MB Relative Index 2.56, Troponin I < 0.02, Total Protein 7.3, Albumin 3.2, Albumin/Globulin Ratio 0.8 CBC/BMP Laboratory Tests 08/29/20 09:52 Microbiology Microbiology 08/29/20 Respiratory Virus Panel (PCR) ([facility]), Received Pending 08/29/20 Blood Culture, Received Pending 08/29/20 Blood Culture, Received Pending Home Medications Scheduled Apixaban (Eliquis) 2.5 Mg Tablet, 2.5 MG PO BID Aspirin (Aspirin EC) 81 Mg Tablet.dr, 81 MG PO DAILY Atorvastatin Calcium (Atorvastatin Calcium) 20 Mg Tablet, 20 MG PO DAILY Finasteride (Finasteride) 5 Mg Tablet, 5 MG PO DAILY Fish Oil/Dha/Epa (Fish Oil 1,200 mg Fish Oil) 1 Each Capsule, 1 CAP PO BID Levothyroxine Sodium (Levothyroxine Sodium) 112 Mcg Tablet, 112 MCG PO DAILY Metoprolol Succinate (Metoprolol Succinate) 50 Mg Tab.er.24h, 50 MG PO DAILY Multivit-Min/FA/Lycopen/Lutein (Centrum Silver Tablet) 1 Each Tablet, 1 TAB PO DAILY Pantoprazole Sodium (Pantoprazole Sodium) 40 Mg Tablet.dr, 40 MG PO DAILY Potassium Chloride (Klor-Con M10) 10 Meq Tab.er.prt, 10 MEQ PO DAILY Pregabalin (Pregabalin) 75 Mg Capsule, 75 MG PO QHS Tamsulosin HCl (Flomax) 0.4 Mg Capsule, 0.4 MG PO DAILY Torsemide (Torsemide) 20 Mg Tablet, 20 MG PO DAILY Allergies Coded Allergies: No Known Allergies (Unverified , 12/29/19) A-FIB/CHADSVASC A-FIB History Current/History of A-Fib/PAF?: Yes Current PO Anticoag Therapy: Yes GME ATTESTATION GME ATTESTATION My faculty preceptor for this patient encounter was physically present during the encounter and was fully available. All aspects of the patient interview, examination, medical decision making process, and medical care plan development were reviewed and approved by the faculty preceptor. The faculty preceptor is aware and concurs with the plan as stated in the body of this note and will attest to such by his/her cosignature. ATTENDING NOTE I, James Acuña, have independently examined this patient and performed my own physical exam, as well as reviewed the documentation and edited where necessary. I have discussed in detail with the resident / student the findings and plan of treatment as documented by the resident / student and edited their note. I agree with their findings and treatment plan and have edited their documentation. I will continue to follow the patient during this hospital stay. ALO NGUYEN DO August 29, 2020 12:57 JAMES ACUÑA MD August 29, 2020 13:59
[2020-08-29 13:56] LABS: FERRITIN 158 NG/ML (26-388); IRON (FE) 17 UG/DL (65-175); PERCENT SATURATION 6.7 % (19.7-50.0); TOTAL IRON BINDING CAPACITY 252 UG/DL (250-450)
[2020-08-29 14:04] LABS: FOLATE > 24.0 NG/ML (>5.4); VITAMIN B12 LEVEL 489 PG/ML (247-911)
[2020-08-29] MEDS: MULTIVITAMINS/MINERALS THERAP 1 TAB PO SCH (14:45)
[2020-08-29] MEDS: ASPIRIN 81MG ENTERIC TABLET PO SCH (14:45)
[2020-08-29] MEDS: DOXYCYCLINE HYCLATE 100 MG in D5W MINI-BAG PLUS 100 ML IV SCH (14:45)
[2020-08-29] MEDS: FINASTERIDE 5 MG TAB PO SCH (14:45)
[2020-08-29] MEDS: ATORVASTATIN 20 MG TAB PO SCH (14:45)
[2020-08-29] MEDS: PANTOPRAZOLE 40MG TAB (PROTONIX) PO SCH (14:46)
[2020-08-29 15:29] LABS: INR 1.41; PROTHROMBIN TIME 17.6 SECONDS (12.5-14.3)
[2020-08-29 15:30] LABS: PARTIAL THROMBOPLASTIN TIME 37.2 SECONDS (24.2-38.5)
[2020-08-29] MEDS: LEVOTHYROXINE 112MCG TABLET (0.112MG) PO SCH (15:37)
[2020-08-29 16:00] VITALS: BP 136/80
--- NOTE | 2020-08-29 20:01 | ECGEPIP ---
[facility] - ED Test Date: 2020-08-29 Pat Name: ELIZABETH DEWEY Department: Room: - Gender: Male Form Tamper: LR : 1935 Requested By: MARLENA Ryan Order Number: [id number] Reading MD: Aleksandar Cheema Measurements Intervals [place] Rate: 49 P: [place]: QRS: -75 QRSD: 192 T: 99 QT: 538 QTc: 485 Interpretive Statements Ventricular-paced rhythm SIMILAR TO 06/29/20 Electronically Signed on 08-29-2020 20:01:22 EDT by Aleksandar Cheema
[2020-08-29 21:00] VITALS: BP 148/76
[2020-08-29] MEDS: APIXABAN 2.5 MG TAB (ELIQUIS) PO SCH (22:10)
[2020-08-29] MEDS: PREGABALIN 75 MG CAP(LYRICA) PO SCH (22:10)
[2020-08-30] VITALS: BP 124/54
[2020-08-30] MEDS: DOXYCYCLINE HYCLATE 100 MG in D5W MINI-BAG PLUS 100 ML IV SCH (01:16)
[2020-08-30 04:00] VITALS: BP 116/67
[2020-08-30 05:18] LABS: HEMATOCRIT 32.3 % (42.0-52.0); HEMOGLOBIN 10.4 g/dl (13.5-17.5); MEAN CORPUSCULAR HEMOGLOBIN 30.1 pg (27.0-33.0); MEAN CORPUSCULAR HGB CONC 32.2 g/dl (32.0-36.5); MEAN CORPUSCULAR VOLUME 93.6 fl (80.0-96.0); PLATELET COUNT, AUTOMATED 144 10^3/uL (150-450); RED BLOOD COUNT 3.45 10^6/uL (4.30-6.10); WHITE BLOOD COUNT 14.6 10^3/uL (4.0-10.0)
[2020-08-30 05:41] LABS: ALBUMIN 2.8 GM/DL (3.2-5.2); CALCIUM LEVEL 8.7 MG/DL (8.8-10.2); CREATININE FOR GFR 1.36 MG/DL (0.70-1.30); GLOMERULAR FILTRATION RATE 52.8 (>35); POTASSIUM SERUM 3.8 MEQ/L (3.5-5.1); TOTAL PROTEIN 6.5 GM/DL (6.4-8.2)
[2020-08-30] MEDS: LEVOTHYROXINE 112MCG TABLET (0.112MG) PO SCH (06:07)
[2020-08-30 07:22] VITALS: BP 116/57
[2020-08-30 07:40] LABS: C REACTIVE PROTEIN QUANTITATIV 18.5 MG/DL (0.00-0.30)
[2020-08-30] MEDS: ASPIRIN 81MG ENTERIC TABLET PO SCH (08:36)
[2020-08-30] MEDS: FINASTERIDE 5 MG TAB PO SCH (08:36)
[2020-08-30] MEDS: PIPERACILLIN/TAZOBACTAM SOD 3.375 GM in D5W MINI-BAG PLUS 50 ML IV SCH ×3 (08:36→21:00)
[2020-08-30] MEDS: PANTOPRAZOLE 40MG TAB (PROTONIX) PO SCH (08:37)
[2020-08-30] MEDS: ATORVASTATIN 20 MG TAB PO SCH (08:37)
[2020-08-30] MEDS: APIXABAN 2.5 MG TAB (ELIQUIS) PO SCH ×2 (08:37→21:56)
[2020-08-30] MEDS: MULTIVITAMINS/MINERALS THERAP 1 TAB PO SCH (08:37)
--- NOTE | 2020-08-30 10:34 | IPNPDOC ---
Date Seen The patient was seen on 08/30/20. Progress Note SUBJECTIVE: Patient was seen and examined this morning. He currently has no new complaints. He continues to have a cough. Tmax of 100.0 overnight. Otherwise no adverse events were reported overnight OBJECTIVE PHYSICAL EXAMINATION: VITAL SIGNS: Please see below. GENERAL APPEARANCE: Awake, alert, and oriented. Appears in no acute distress. Is ill appearing HEENT: Atraumatic, normocephalic. eyes are nonicteric. Trachea is midline. Mucous membranes are slightly dry CARDIOVASCULAR: Normal S1, S2. Bradycardic rate. Regular rhythm. No clicks, rubs, or murmurs LUNGS: Decreased breath sounds throughout. Scattered rhonchi although appear to be improving. Symmetric chest expansion. Bronchial breath sounds present ABDOMEN: Soft, nondistended. Nontender. Normoactive bowel sounds throughout EXTREMITIES: Full and equal pulses in bilateral upper and lower extremities. Area of healing ulceration on the left dorsal foot. Bilateral feet are dry with onychomycosis bilaterally NEUROLOGICAL: No focal neurological deficits PSYCHIATRIC: Mood and affect appear appropriate LABORATORY DATA, IMAGING STUDIES, MICROBIOLOGY: Please see below. DVT prophylaxis ordered?: Eliquis ASSESSMENT AND PLAN: Patient is a 85 year old male a past medical history significant for CAD s/p CABG, atrial fibrillation on eliquis and metoprolol, pacemaker placement, AAA s/p repair, and recurrent pneumonia who presented to the [facility] ER with complaint of cough and generalized fatigue for a week that worsened over the past day. On presentation to the ER patient was vitally stable with a leukocytosis and chest x-ray demonstrating a right lung field opacity PROBLEMS: 1. Right Lower lobe pneumonia -Patient presenting with a cough, chills, and weakness. He has a leukocytosis and chest x-ray demonstrating an opacity in the right lung horn. Patient has had recurrent pneumonias. He does admit to moments of dysphagia and choking. Possible that his recurrent pneumonia is secondary to aspiration vs CAP -CRP and WBC have trended up. Likely that the patient has Aspiration PNA vs CAP. He has received Rocephin and Doxy. Will stop Rocephin and doxycycline and start Zosyn for better empiric coverage in the setting of aspiration -Patient was seen by speech and swallow with dietary recommendations -Acapella -Procalcitonin was 0.13. Possible that this is early stages and will trend up. -Will continue to trend CRP, WBC and Procalcitonin 2. Acute Kidney injury in setting of Chronic Kidney Disease likely pre-renal -Patient has baseline Cr of 1.0. Patient has decreased oral intake as well as with current pneumonia. He was also recently started on Lasix. -Cr is improving. Encouraging PO intake. -Avoid nephrotoxic agents -Will trend Cr. -Will obtain Urinalysis 3. Bradycardia -Patent has a pacemaker with HR set point of 50bpm. He is also on Metoprolol outpatient. It is possible that his dose of metoprolol is too high resulting in chronic pacing. Will hold his Metoprolol. If patient is truly paced at 50bpm then it is possible that his fatigue is secondary to his slow heart rate 4. Atrial Fibrillation -Patient has history of atrial fibrillation. He is currently on Eliquis. He is currently ventricularly paced. Will hold his metoprolol as he is currently paced at 50bpm 5. Elevated Bilirubin -Total bilirubin elevated at 1.5. Direct bilirubin is 0.6. Mostly unconjugated which could suggest a [place]. This can be expected in acute illness. Will continue to trend. 6. Chronic Anemia -Patient has a baseline Hgb of 10-11. He is currently at baseline. He is on Aspirin and Eliquis. Will order Iron studies. Patient is currently at his baseline Hgb 7. HFpEF -Patient recently started on Lasix. Patient appears dry. Will hold lasix. Will monitor. 8. Neuropathy/leg pain -will continue Lyrica 9. GERD -Continue Protonix 10. BPH -Continue Finasteride and Flomax 11. Hypothyroidism -Continue Synthroid 12. CAD s/p CABG -Continue Aspirin and Atorvastatin 13. History of Suspected COPD -Patient had stated that he was previously diagnosed with COPD when living in [place]. However he had recently been evaluated by Pulmonary Medicine where he received PFTs and was told that he does not have COPD. He is currently not on any inhalers at home 14. Nutrition -NPO until speech and swallow eval. Dietary recommendations per speech and swallow 15. DVT Prophylaxis -Continue Eliquis DISPOSITION: Pending clinical improvement. Likely discharge in 48 hours VS, I&O, 24H, Fishbone Vital Signs/I&O Vital Signs Date Time Temp Pulse Resp B/P (MAP) Pulse Ox O2 Delivery O2 Flow Rate FiO2 08/30/20 07:22 98.6 50 18 116/57 (76) 94 Room Air I&O- Last 24 Hours up to 6 AM 08/30/20 06:00 Intake Total 775 ml Output Total 350 ml Balance 425 ml Laboratory Data 24H LABS Laboratory Tests 2 08/29/20 15:05: Prothrombin Time 17.6H, Prothromb Time International Ratio 1.41, Activated Partial Thromboplast Time 37.2 08/30/20 04:58: Nucleated Red Blood Cells % (auto) 0.0, Anion Gap 8, Glomerular Filtration Rate 52.8, Calcium Level 8.7L, Total Bilirubin 2.0H, Aspartate Amino Transf (AST/SGOT) 28, Alanine Aminotransferase (ALT/SGPT) 22, Alkaline Phosphatase 160H, C-Reactive Protein, Quantitative 18.50H, Total Protein 6.5, Albumin 2.8L, Albumin/Globulin Ratio 0.8 CBC/BMP Laboratory Tests 08/30/20 04:58 Microbiology Microbiology 08/29/20 Respiratory Virus Panel (PCR) ([facility]) - Final, Complete 08/29/20 Blood Culture, Received Pending 08/29/20 Blood Culture, Received Pending GME ATTESTATION GME ATTESTATION My faculty preceptor for this patient encounter was physically present during the encounter and was fully available. All aspects of the patient interview, examination, medical decision making process, and medical care plan development were reviewed and approved by the faculty preceptor. The faculty preceptor is aware and concurs with the plan as stated in the body of this note and will attest to such by his/her cosignature. ATTENDING NOTE I, James Crews, have independently examined this patient and performed my own physical exam, as well as reviewed the documentation and edited where necessary. I have discussed in detail with the resident / student the findings and plan of treatment as documented by the resident / student and edited their note. I agree with their findings and treatment plan and have edited their documentation. I will continue to follow the patient during this hospital stay. ALO NGUYEN DO August 30, 2020 10:34 JAMES CREWS MD August 30, 2020 11:04
[2020-08-30] MEDS ORDERED: cefTRIAXone SOD 1 GM in D5W MINI-BAG PLUS 50 ML IV SCH (12:00)
[2020-08-30 12:08] VITALS: BP 165/71
[2020-08-30] MEDS ORDERED: E-Z-PAQUE 96% w/w SUSP 176GM BTL As Ordered ONE (13:56)
[2020-08-30] MEDS ORDERED: VARIBAR NECTAR 40% w/v 240ML SUSP BTL As Ordered ONE (13:56)
[2020-08-30] MEDS ORDERED: VARIBAR PUDDING 40% w/v 230ML TUBE As Ordered ONE (13:56)
[2020-08-30] MEDS ORDERED: BARIUM SULFATE 700 MG TABLET (E-Z-DISK) As Ordered ONE (13:57)
[2020-08-30 15:53] VITALS: BP 122/60
[2020-08-30 20:45] VITALS: BP 144/65
[2020-08-30] MEDS: PREGABALIN 75 MG CAP(LYRICA) PO SCH (21:56)
[2020-08-31] VITALS: BP 144/63
[2020-08-31] MEDS: PIPERACILLIN/TAZOBACTAM SOD 3.375 GM in D5W MINI-BAG PLUS 50 ML IV SCH ×4 (02:20→19:57)
[2020-08-31 04:00] VITALS: BP 117/57
[2020-08-31] MEDS: LEVOTHYROXINE 112MCG TABLET (0.112MG) PO SCH (06:26)
[2020-08-31 07:13] LABS: HEMATOCRIT 32.5 % (42.0-52.0); HEMOGLOBIN 10.4 g/dl (13.5-17.5); MEAN CORPUSCULAR HEMOGLOBIN 29.8 pg (27.0-33.0); MEAN CORPUSCULAR VOLUME 93.1 fl (80.0-96.0); PLATELET COUNT, AUTOMATED 155 10^3/uL (150-450); RED BLOOD COUNT 3.49 10^6/uL (4.30-6.10); WHITE BLOOD COUNT 11.5 10^3/uL (4.0-10.0)
[2020-08-31 07:19] VITALS: BP 142/64
[2020-08-31 07:59] LABS: ALBUMIN 2.6 GM/DL (3.2-5.2); BILIRUBIN,TOTAL 1.9 MG/DL (0.2-1.0); C REACTIVE PROTEIN QUANTITATIV 22.6 MG/DL (0.00-0.30); CALCIUM LEVEL 8.7 MG/DL (8.8-10.2); CREATININE FOR GFR 1.58 MG/DL (0.70-1.30); GLOMERULAR FILTRATION RATE 44.4 (>35); POTASSIUM SERUM 3.6 MEQ/L (3.5-5.1); TOTAL PROTEIN 6.3 GM/DL (6.4-8.2)
[2020-08-31] MEDS: PANTOPRAZOLE 40MG TAB (PROTONIX) PO SCH (08:25)
[2020-08-31] MEDS: MULTIVITAMINS/MINERALS THERAP 1 TAB PO SCH (08:25)
[2020-08-31] MEDS: APIXABAN 2.5 MG TAB (ELIQUIS) PO SCH ×2 (08:25→20:27)
[2020-08-31] MEDS: ASPIRIN 81MG ENTERIC TABLET PO SCH (08:26)
[2020-08-31] MEDS: FINASTERIDE 5 MG TAB PO SCH (08:26)
[2020-08-31] MEDS: ATORVASTATIN 20 MG TAB PO SCH (08:26)
[2020-08-31] MEDS ORDERED: SLF 3 ML SYR IV PRN (09:15)
--- NOTE | 2020-08-31 09:16 | REP ---
INDICATION: Possible aspiration. COMPARISON: None. TECHNIQUE: The procedure was performed by Sera Webb [facility], under the direct supervision of Dr. Canas. The procedure was performed with Patience Armijo, from speech pathology present. 5 ml aliquots of thin, pudding, mixed fruit, soft food, applesauce and pill consistency barium was administered. FINDINGS: Penetration was visualized during the exam. The detailed report of this examination will be provided by speech pathology. IMPRESSION: Penetration was visualized, a detailed report will be provided by speech pathology. 3.2 minutes of fluoroscopy time was utilized for this procedure. Some fluoroscopic images are performed with last image hold technology. These images require no additional radiation <Electronically signed by Sera Webb > 08/30/20 [id number] <Electronically signed by Edgard Canas > 08/31/20 [id number]
[2020-08-31 11:17] VITALS: BP 140/63
[2020-08-31] MEDS: SLF 3 ML SYR IV SCH ×2 (14:50→22:05)
[2020-08-31 15:44] VITALS: BP 125/58
[2020-08-31] MEDS ORDERED: NS 1,000 ML IV SCH (16:10)
--- NOTE | 2020-08-31 16:11 | IPNPDOC ---
Date Seen The patient was seen on 08/31/20. Progress Note SUBJECTIVE: Patient was see and examined this morning. Patient states he is feeling better compared to yesterday. He denies any shortness of breath. He states his congestion has improved. Additionally he is less fatigued. Patient has been reported to be bradycardic although he does have a pacer in place. OBJECTIVE PHYSICAL EXAMINATION: VITAL SIGNS: Please see below. GENERAL APPEARANCE: Awake, alert, and oriented. Appears in no acute distress. Is ill appearing HEENT: Atraumatic, normocephalic. eyes are nonicteric. Trachea is midline. Mucous membranes are slightly dry CARDIOVASCULAR: Normal S1, S2. Bradycardic rate. Regular rhythm. No clicks, rubs, or murmurs LUNGS: Decreased breath sounds throughout. Improved aeration. No wheezes or rales. Scattered rhonchi although improved from previous examination. Symmetric chest expansion. ABDOMEN: Soft, nondistended. Nontender. Normoactive bowel sounds throughout EXTREMITIES: Full and equal pulses in bilateral upper and lower extremities. Area of healing ulceration on the left dorsal foot. Bilateral feet are dry with onychomycosis bilaterally NEUROLOGICAL: No focal neurological deficits PSYCHIATRIC: Mood and affect appear appropriate LABORATORY DATA, IMAGING STUDIES, MICROBIOLOGY: Please see below. DVT prophylaxis ordered?: Eliquis ASSESSMENT AND PLAN: Patient is a 85 year old male a past medical history significant for CAD s/p CABG, atrial fibrillation on eliquis and metoprolol, pacemaker placement, AAA s/p repair, and recurrent pneumonia who presented to the [facility] ER with complaint of cough and generalized fatigue for a week that worsened over the past day. On presentation to the ER patient was vitally stable with a leukocytosis and chest x-ray demonstrating a right lung field opacity PROBLEMS: 1. Right Lower lobe pneumonia -Patient presenting with a cough, chills, and weakness. He has a leukocytosis and chest x-ray demonstrating an opacity in the right lung horn. Patient has had recurrent pneumonias. He does admit to moments of dysphagia and choking. Possible that his recurrent pneumonia is secondary to aspiration vs CAP -Patient has been placed on Zosyn. WBC trending down. -Will continue Zosyn today. Patient clinically improving likely discharge home tomorrow with Augmentin. 2. Acute Kidney injury in setting of Chronic Kidney Disease likely pre-renal -Patient has baseline Cr of 1.0. Patient has decreased oral intake as well as with current pneumonia. He was also recently started on Lasix. -Cr has not improved much from yesterday. He has had decreased oral intake. Will give normal saline. Trend Cr. -Avoid nephrotoxic agents -He is currently on Zosyn -Will obtain Urinalysis 3. Bradycardia -Patent has a pacemaker with HR set point of 50bpm. He is also on Metoprolol outpatient. It is possible that his dose of metoprolol is too high resulting in chronic pacing. Will hold his Metoprolol. -Patient was noted to have a HR of 38 on tele. This was discussed with patients Supervisor [employer] Dr. Llanos who stated that the patient is likely having PVCs which are not picked up by telemetry making it seem bradycardic. 4. Atrial Fibrillation -Patient has history of atrial fibrillation. He is currently on Eliquis. He is currently ventricularly paced. Will hold his metoprolol as he is currently paced at 50bpm 5. Elevated Bilirubin -Total bilirubin elevated at 1.5. Direct bilirubin is 0.6. Mostly unconjugated which could suggest a [place]. This can be expected in acute illne ss. Will continue to trend. 6. Chronic Anemia -Patient has a baseline Hgb of 10-11. He is currently at baseline. He is on Aspirin and Eliquis. Will order Iron studies. Patient is currently at his b aseline Hgb 7. HFpEF -Patient recently started on Lasix. Patient appears dry. Will hold lasix. W ill monitor. 8. Neuropathy/leg pain -will continue Lyrica 9. GERD -Continue Protonix 10. BPH -Continue Finasteride and Flomax 11. Hypothyroidism -Continue Synthroid 12. CAD s/p CABG -Continue Aspirin and Atorvastatin 13. History of Suspected COPD -Patient had stated that he was previously diagnosed with COPD when living in [place]. However he had recently been evaluated by Pulmonary Medicine where he received PFTs and was told that he does not have COPD. He is currently not on an y inhalers at home 14. Nutrition -NPO until speech and swallow eval. Dietary recommendations per speech and swallow 15. DVT Prophylaxis -Continue Eliquis DISPOSITION: Likely discharge home tomorrow with PO Augmentin VS, I&O, 24H, Fishbone Vital Signs/I&O Vital Signs Date Time Temp Pulse Resp B/P (MAP) Pulse Ox O2 Delivery O2 Flow Rate FiO2 08/31/20 11:17 98.4 50 20 140/63 (88) 95 Room Air I&O- Last 24 Hours up to 6 AM 08/31/20 06:00 Intake Total 960 ml Output Total 800 ml Balance 160 ml Laboratory Data 24H LABS Laboratory Tests 2 08/31/20 06:54: Nucleated Red Blood Cells % (auto) 0.0, Anion Gap 7L, Glomerular Filtration Rate 44.4, Calcium Level 8.7L, Total Bilirubin 1.9H, Aspartate Amino Transf (AST/SGOT) 36, Alanine Aminotransferase (ALT/SGPT) 25, Alkaline Phosphatase 158H, C-Reactive Protein, Quantitative 22.60H, Total Protein 6.3L, Albumin 2.6L, Albumin/Globulin Ratio 0.7 CBC/BMP Laboratory Tests 08/31/20 06:54 Microbiology Microbiology 08/29/20 Respiratory Virus Panel (PCR) ([facility]) - Final, Complete 08/29/20 Blood Culture - Preliminary, Resulted No Growth after 48 hours. All Specime... 08/29/20 Blood Culture - Preliminary, Resulted No Growth after 48 hours. All Specime... GME ATTESTATION GME ATTESTATION My faculty preceptor for this patient encounter was physically present during the encounter and was fully available. All aspects of the patient interview, examination, medical decision making process, and medical care plan development were reviewed and approved by the faculty preceptor. The faculty preceptor is aware and concurs with the plan as stated in the body of this note and will attest to such by his/her cosignature. ATTENDING NOTE I, James Acuña, have independently examined this patient and performed my own physical exam, as well as reviewed the documentation and edited where necessary. I have discussed in detail with the resident / student the findings and plan of treatment as documented by the resident / student and edited their note. I agree with their findings and treatment plan and have edited their documentation. I will continue to follow the patient during this hospital stay. ALO NGUYEN DO August 31, 2020 16:11 JAMES ACUÑA MD August 31, 2020 17:02
--- NOTE | 2020-08-31 16:54 | ECGEPIP ---
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 Order Number: [id number] Reading MD: Reji Stauffer Measurements Intervals [place] Rate: 50 P: UT: QRS: -72 QRSD: 194 T: 97 QT: 534 QTc: 486 Interpretive Statements Ventricular-paced rhythm underlying rhythm appears to be atrial fibrillation Similar to tracing done 08-29-20 Electronically Signed on 08-31-2020 16:54:38 EDT by Reji Stauffer
[2020-08-31 20:00] VITALS: BP 152/63
[2020-08-31] MEDS: PREGABALIN 75 MG CAP(LYRICA) PO SCH (20:27)
[2020-09-01] MEDS: PIPERACILLIN/TAZOBACTAM SOD 3.375 GM in D5W MINI-BAG PLUS 50 ML IV SCH (03:04)
[2020-09-01 04:00] VITALS: BP 120/53
[2020-09-01 05:53] LABS: HEMATOCRIT 30.2 % (42.0-52.0); HEMOGLOBIN 9.4 g/dl (13.5-17.5); MEAN CORPUSCULAR HEMOGLOBIN 29.4 pg (27.0-33.0); MEAN CORPUSCULAR HGB CONC 31.1 g/dl (32.0-36.5); MEAN CORPUSCULAR VOLUME 94.4 fl (80.0-96.0); PLATELET COUNT, AUTOMATED 148 10^3/uL (150-450)
[2020-09-01] MEDS: LEVOTHYROXINE 112MCG TABLET (0.112MG) PO SCH (05:53)
[2020-09-01] MEDS: SLF 3 ML SYR IV SCH ×2 (05:54→15:01)
[2020-09-01 06:25] LABS: ALBUMIN 2.2 GM/DL (3.2-5.2); BILIRUBIN,TOTAL 1.5 MG/DL (0.2-1.0); CALCIUM LEVEL 8.3 MG/DL (8.8-10.2); CREATININE FOR GFR 1.69 MG/DL (0.70-1.30); GLOMERULAR FILTRATION RATE 41.1 (>35); POTASSIUM SERUM 3.8 MEQ/L (3.5-5.1); TOTAL PROTEIN 5.8 GM/DL (6.4-8.2)
[2020-09-01 08:00] VITALS: BP 125/58
[2020-09-01] MEDS: APIXABAN 2.5 MG TAB (ELIQUIS) PO SCH ×2 (08:53→20:05)
[2020-09-01] MEDS: ATORVASTATIN 20 MG TAB PO SCH (08:53)
[2020-09-01] MEDS: MULTIVITAMINS/MINERALS THERAP 1 TAB PO SCH (08:53)
[2020-09-01] MEDS: PANTOPRAZOLE 40MG TAB (PROTONIX) PO SCH (08:53)
[2020-09-01] MEDS: FINASTERIDE 5 MG TAB PO SCH (08:53)
[2020-09-01] MEDS: ASPIRIN 81MG ENTERIC TABLET PO SCH (08:53)
[2020-09-01] MEDS: AUGMENTIN 875 MG TAB PO SCH ×2 (10:05→20:05)
--- NOTE | 2020-09-01 10:22 | REP ---
INDICATION: TRISTEN. COMPARISON: None. FINDINGS: Scanning of the level of the urinary bladder demonstrates distention of the urinary bladder with calculated glass bladder volume 645 mL.. Renal cortical echogenicity pattern is increased bilaterally consistent with chronic medical renal disease. There is no evidence of hydronephrosis on either side. Multiple bilateral renal cysts are seen. Cortical atrophy is present bilaterally.. . The right kidney measures 13.6 x 4.99 x 4.8 cm. Left renal dimensions are 11.6 x 5.1 x 5.3 cm. Multiple renal cysts are observed bilaterally including 3 cysts in the mid upper pole on the right kidney measuring 2.8, 2.7, and 2.5 cm in greatest diameter respectively. There are 3 cysts in a cluster in the upper pole on the left kidney measuring 4.9, 3.6, and 3.2 cm in greatest diameter respectively. Alternatively, this could be a septated single cyst. Multiple smaller cortical cysts are observed on recent CT study. IMPRESSION: No evidence of hydronephrosis. Renal cortical atrophy and increased renal cortical echogenicity consistent with chronic medical renal disease. Multiple cortical cysts in each kidney.. <Electronically signed by Dre Ambrosio > 09/01/20 [id number]
[2020-09-01 12:00] VITALS: BP 122/57
--- NOTE | 2020-09-01 12:29 | IPNPDOC ---
Date Seen The patient was seen on 09/01/20. Progress Note SUBJECTIVE: Patient was seen and examined this morning. He currently has no complaints. He states that he is overall feeling better. He states his cough has improved. Additionally his energy has improved as well. There have been no adverse events reported overnight. The patient was noted to have an increase in his Cr this morning. OBJECTIVE PHYSICAL EXAMINATION: VITAL SIGNS: Please see below. GENERAL APPEARANCE: Awake, alert, and oriented. Appears in no acute distress. Is ill appearing HEENT: Atraumatic, normocephalic. eyes are nonicteric. Trachea is midline. Mucous membranes are slightly dry CARDIOVASCULAR: Normal S1, S2. Bradycardic rate. Regular rhythm. No clicks, rubs, or murmurs LUNGS: Decreased breath sounds throughout. Improved aeration. No wheezes or rales. Scattered rhonchi although improved from previous examination. Symmetric chest expansion. ABDOMEN: Soft, nondistended. Nontender. Normoactive bowel sounds throughout EXTREMITIES: Full and equal pulses in bilateral upper and lower extremities. Area of healing ulceration on the left dorsal foot. Bilateral feet are dry with onychomycosis bilaterally NEUROLOGICAL: No focal neurological deficits PSYCHIATRIC: Mood and affect appear appropriate LABORATORY DATA, IMAGING STUDIES, MICROBIOLOGY: Please see below. DVT prophylaxis ordered?: Eliquis ASSESSMENT AND PLAN: Patient is a 85 year old male a past medical history significant for CAD s/p CABG, atrial fibrillation on eliquis and metoprolol, pacemaker placement, AAA s/p repair, and recurrent pneumonia who presented to the [facility] ER with complaint of cough and generalized fatigue for a week that worsened over the past day. On presentation to the ER patient was vitally stable with a leukocytosis and chest x-ray demonstrating a right lung field opacity PROBLEMS: 1. Right Lower lobe pneumonia likely 2/2 aspiration -Appears to be resolved. Patient treated with Zosyn. Likely 2/2 aspiration -Diet modifications per Speech and Swallow -Patient has been transitioned to Augmentin. 2. Acute Kidney injury in setting of Chronic Kidney Disease -Patient has baseline Cr of 1.0. His Cr has been worsening. It is likely secondary to Zosyn. Zosyn has been stopped and patient has been transitioned to Augmentin -Renal ultrasound has been obtained as patient has a history of urothelial carcinoma which was treated in 2012 -Will continue to monitor Cr. U/A ordered as well as urine sodium and Cr. 3. Bradycardia -Patient is chronically paced at 50bpm per his regulatory compliance specialist Dr. Llanos. Patient has been taken off of telemetry monitoring. 4. Atrial Fibrillation -Patient has history of atrial fibrillation. He is currently on Eliquis. He is currently ventricularly paced. Will hold his metoprolol as he is currently paced at 50bpm 5. Elevated Bilirubin -Total bilirubin elevated at 1.5. Direct bilirubin is 0.6. Mostly unconjugated which could suggest a [place]. This can be expected in acute illness. Will continue to trend. 6. Chronic Anemia -Patient has a baseline Hgb of 10-11. He is currently at baseline. He is on Aspirin and Eliquis. Will order Iron studies. Patient is currently at his baseline Hgb 7. HFpEF -Patient recently started on Lasix. Patient appears dry. Will hold lasix. Will monitor. 8. Neuropathy/leg pain -will continue Lyrica 9. GERD -Continue Protonix 10. BPH -Continue Finasteride and Flomax 11. Hypothyroidism -Continue Synthroid 12. CAD s/p CABG -Continue Aspirin and Atorvastatin 13. History of Suspected COPD -Patient had stated that he was previously diagnosed with COPD when living in [place]. However he had recently been evaluated by Pulmonary Medicine where he received PFTs and was told that he does not have COPD. He is currently not on any inhalers at home 14. Nutrition -Dietary recommendations per speech and swallow 15. DVT Prophylaxis -Continue Eliquis DISPOSITION: Pending clinical improvement. Patient currently has an TRISTEN. If improving tomorrow potential discharge in 24 hours VS, I&O, 24H, [place] Vital Signs/I&O Vital Signs Date Time Temp Pulse Resp B/P (MAP) Pulse Ox O2 Delivery O2 Flow Rate FiO2 09/01/20 08:00 98.2 51 16 125/58 (80) 94 Room Air I&O- Last 24 Hours up to 6 AM 09/01/20 06:00 Intake Total 970 ml Output Total 600 ml Balance 370 ml Laboratory Data 24H LABS Laboratory Tests 2 09/01/20 05:38: Nucleated Red Blood Cells % (auto) 0.0, Anion Gap 7L, Glomerular Filtration Rate 41.1, Calcium Level 8.3L, Total Bilirubin 1.5H, Aspartate Amino Transf (AST/SGOT) 67H, Alanine Aminotransferase (ALT/SGPT) 35, Alkaline Phosphatase 177H, Total Protein 5.8L, Albumin 2.2L, Albumin/Globulin Ratio 0.6 CBC/BMP Laboratory Tests 09/01/20 05:38 Microbiology Microbiology 08/29/20 Respiratory Virus Panel (PCR) ([facility]) - Final, Complete 08/29/20 Blood Culture - Preliminary, Resulted No Growth after 72 hours. All specime... 08/29/20 Blood Culture - Preliminary, Resulted No Growth after 72 hours. All specime... GME ATTESTATION GME ATTESTATION My faculty preceptor for this patient encounter was physically present during the encounter and was fully available. All aspects of the patient interview, exa mination, medical decision making process, and medical care plan development were reviewed and approved by the faculty preceptor. The faculty preceptor is aware and concurs with the plan as stated in the body of this note and will attest to such by his/her cosignature. ATTENDING NOTE I, James Crews, have independently examined this patient and performed my own physical exam, as well as reviewed the documentation and edited where necessary. I have discussed in detail with the resident / student the findings and plan of treatment as documented by the resident / student and edited their note. I agree with their findings and treatment plan and have edited their documentation. I will continue to follow the patient during this hospital stay. ALO NGUYEN DO September 01, 2020 12:29 JAMES CREWS MD September 01, 2020 13:48
[2020-09-01 16:00] VITALS: BP 160/70
[2020-09-01 16:27] VITALS: BP 143/56
[2020-09-01] MEDS: PREGABALIN 75 MG CAP(LYRICA) PO SCH (20:05)
[2020-09-01 22:00] VITALS: BP 145/54
[2020-09-01 22:20] LABS: AMORPHOUS SEDIMENT SMALL (NEGATIVE); APPEARANCE, URINE CLOUDY (CLEAR); BACTERIA, URINE AUTO NEGATIVE (NEGATIVE); BILIRUBIN, URINE AUTO NEGATIVE (NEGATIVE); BLOOD, URINE BLOOD NEGATIVE (NEGATIVE); COLOR, URINE AMBER (YELLOW); GLUCOSE, URINE (UA) AUTO NEGATIVE (NEGATIVE); KETONE, URINE AUTO NEGATIVE (NEGATIVE); LEUKOCYTE ESTERASE, URINE AUTO TRACE (NEGATIVE); NITRITE, URINE AUTO NEGATIVE (NEGATIVE); PROTEIN, URINE AUTO 2+ mg/dL (NEGATIVE); RBC, URINE AUTO 4 /HPF (0-3); SPECIFIC GRAVITY URINE AUTO 1.019 (1.002-1.035); SQUAMOUS EPITHELIAL CELL UR AU 1 /HPF (0-6); WBC, URINE AUTO 3 /HPF (0-3)
[2020-09-01 22:41] LABS: SODIUM,RANDOM URINE 21 MEQ/L; UREA NITROGEN RANDOM URINE 910 MG/DL
[2020-09-02] MEDS: LEVOTHYROXINE 112MCG TABLET (0.112MG) PO SCH (05:25)
[2020-09-02 05:56] LABS: HEMATOCRIT 30.5 % (42.0-52.0); HEMOGLOBIN 9.7 g/dl (13.5-17.5); MEAN CORPUSCULAR HEMOGLOBIN 29.8 pg (27.0-33.0); MEAN CORPUSCULAR HGB CONC 31.8 g/dl (32.0-36.5); MEAN CORPUSCULAR VOLUME 93.8 fl (80.0-96.0); PLATELET COUNT, AUTOMATED 159 10^3/uL (150-450); RED BLOOD COUNT 3.25 10^6/uL (4.30-6.10); WHITE BLOOD COUNT 9.2 10^3/uL (4.0-10.0)
[2020-09-02 06:00] VITALS: BP 119/54
[2020-09-02 06:25] LABS: ALBUMIN 2.4 GM/DL (3.2-5.2); ALT/SGPT 52 U/L (12-78); BILIRUBIN,TOTAL 1.3 MG/DL (0.2-1.0); BLOOD UREA NITROGEN 41 MG/DL (7-18); CALCIUM LEVEL 8.7 MG/DL (8.8-10.2); CARBON DIOXIDE LEVEL 27 MEQ/L (21-32); CHLORIDE LEVEL 107 MEQ/L (98-107); CREATININE FOR GFR 1.45 MG/DL (0.70-1.30); GLUCOSE, FASTING 122 MG/DL (70-100); POTASSIUM SERUM 3.9 MEQ/L (3.5-5.1); SODIUM LEVEL 140 MEQ/L (136-145); TOTAL PROTEIN 6.4 GM/DL (6.4-8.2)
[2020-09-02] MEDS: MULTIVITAMINS/MINERALS THERAP 1 TAB PO SCH (07:47)
[2020-09-02] MEDS: APIXABAN 2.5 MG TAB (ELIQUIS) PO SCH (07:48)
[2020-09-02] MEDS: AUGMENTIN 875 MG TAB PO SCH (07:48)
[2020-09-02] MEDS: ASPIRIN 81MG ENTERIC TABLET PO SCH (07:48)
[2020-09-02] MEDS: ATORVASTATIN 20 MG TAB PO SCH (07:48)
[2020-09-02] MEDS: FINASTERIDE 5 MG TAB PO SCH (07:48)
[2020-09-02] MEDS: PANTOPRAZOLE 40MG TAB (PROTONIX) PO SCH (07:48)
--- NOTE | 2020-09-02 08:40 | REP ---
INDICATION: Elevated Alk Phos. COMPARISON: Comparison sonography is from June 30, 2020.. Comparison is also made with CT abdomen pelvis June 29, 2020. TECHNIQUE: Right upper quadrant sonography. FINDINGS: Scanning through the right upper quadrant of the abdomen demonstrates a somewhat elongate but normal sized liver with no focal liver lesion. No biliary ductal dilation is seen. The gallbladder is surgically absent. Common bile duct is normal measuring 0.7 cm in greatest diameter. No intrahepatic ductal dilation is observed. Limited views of pancreas show no abnormality. There is cortical thinning of the right kidney and there are multiple right renal cysts as seen on CT. The largest of these are an upper pole cyst measuring 2.0 cm, a midpole cyst measuring 2.5 cm, and a lower pole cyst measuring 2.3 cm in greatest diameter respectively.. IMPRESSION: Post cholecystectomy. Multiple right renal cortical cysts and cortical atrophy. Normal CBD. Otherwise negative.. <Electronically signed by Dre Ambrosio > 09/02/20 [id number]
[2020-09-02] MEDS ORDERED: AMOX875T2 PO (11:15)
[2020-09-02] MEDS ORDERED: NYST1POW9 TOP (11:31)
--- NOTE | 2020-09-02 12:23 | DS.PDOC ---
Discharge Summary General Date of Admission August 29, 2020 at 12:50 Date of Discharge 09/02/2020 Discharge Summary PROCEDURES PERFORMED DURING STAY: [None]. ADMITTING DIAGNOSES / DISCHARGE DIAGNOSES: Right Lower lobe pneumonia likely 2/2 aspiration TRISTEN on CKD3 Bradycardia Atrial Fibrillation Elevated Bilirubin Chronic Anemia HFpEF CAD s/p CABG History of Suspected COPD Hypothyroidism Neuropathy BPH Nutrition GERD DVT Prophylaxis COMPLICATIONS/CHIEF COMPLAINT: Cough HISTORY OF PRESENT ILLNESS: Patient is an 85 year old male with a PMHx of CAD s/p CABG, Atrial fibrillation (on eliquis and metoprolol), pacemaker placement (recent battery change), AAA s/p repair, and recurrent pneumonia who presented to the [facility] ER with complaint of cough and generalized fatigue for a week that worsened over the past day. On presentation to the ER patient was vitally stable with a leukocytosis and chest x-ray demonstrating a right lung field opacity. Patient was admitted to the hospital service for further evaluation and treatment. HOSPITAL COURSE: Right Lower lobe pneumonia likely 2/2 aspiration - Currently patient reports improvement of his breathing - Denies any CP, SOB or cough currently - No fevers / Hemodynamically stable - s/p Leukocytosis; CRP improving - Respiratory panel 08/29: Negative - Blood cultures 08/29: No growth at 72 hours - s/p Zosyn; c/w Augmentin for completion of antibiotic course - Diet as per Speech therapy recommendations TRISTEN on CKD3 - Cr baseline of 1; Cr has improved with IV fluid hydration - Reported history of bladder / urothelial CA (s/p treatment in 2012) - Imaging noted above - Will continue to avoid nephrotoxic medications; s/p Diuretics and Zosyn - Encourage increased oral hydration - s/p IV fluid hydration Bradycardia - Patient is chronically paced at 50 bpm - Case was discussed with Dr. Llanos - Patient has had a pacemaker battery replacement recently with Dr. Llanos - Will have outpatient follow-up with cardiology, Dr. Llanos within the next 7 days Atrial Fibrillation - s/p Rate control with Metoprolol; HR has remained bradycardic and ventricularly paced since admission - c/w full anticoagulation with Eliquis Elevated Bilirubin - Has been slowly improving - Afebrile / No leukocytosis - Physical without any abdominal tenderness noted - US Liver noted below - Hepatitis profile pending - Will have outpatient follow up with PCP within 7 days Chronic Anemia - Baseline Hg of 10-11; slight down trend likely 2/2 IV fluid hydration - No evidence of bleeding - Will have outpatient follow up with PCP within 7 days HFpEF - Patient does not appear to have any signs of fluid overload - Will hold Diuresis on discharge CAD s/p CABG - c/w Aspirin and Atorvastatin History of Suspected COPD - Reported to have had COPD diagnosed in [place]; Pulmonary evaluation locally and PFTs did not reveal COPD - Currently not on any inhaled therapy Hypothyroidism - c/w Levothyroxine Neuropathy - c/w Pregabalin BPH - c/w Finasteride and Tamsulosin Nutrition - c/w recommendations as per speech therapy GERD - c/w Protonix DVT Prophylaxis - c/w Eliquis DISCHARGE MEDICATIONS: Please see below. ALLERGIES: Please see below. PHYSICAL EXAMINATION ON DISCHARGE: Vitals (See below) General: Sitting up in chair, appears comfortable, not in any acute distress, AAOx3 HEENT: NC, AT CVS: +S1S2 Lungs: Fair air entry b/l, no evidence of wheezing, rhonchi, rales Abdomen: Soft, ND, abdomen, does not reveal any significant tenderness in any 4 quadrant Extremities: No evidence of edema, - Calf tenderness LABORATORY DATA: Please see below. IMAGING: CXR 08/29: New patchy right lung base opacities pneumonia versus subsegmental atelectasis. 1. New small left pleural effusion. 2. Other findings as described above. Esophagus XR 08/30: - Penetration was visualized, a detailed report will be provided by speech pathology. - 3.2 minutes of fluoroscopy time was utilized for this procedure. Some fluoroscopic images are performed with last image hold technology. These images require no additional radiation Renal US 09/01: No evidence of hydronephrosis. Renal cortical atrophy and increased renal cortical echogenicity consistent with chronic medical renal disease. Multiple cortical cysts in each kidney. Liver US 09/02: Post cholecystectomy. Multiple right renal cortical cysts and cortical atrophy. Normal CBD. Otherwise negative.. ACTIVITY: [As tolerated]. DIET: Mechanical soft / Level 2 / Thin liquids DISCHARGE PLAN: Follow-up with primary care provider within the next 7 days Follow-up with cardiology within the next 7 days Remain compliant with treatment plan and medications Return to the ER if you experience any problems DISPOSITION: Home with services DISCHARGE CONDITION: [Stable]. TIME SPENT ON DISCHARGE: 35 minutes. Vital Signs/I&Os Vital Signs Date Time Temp Pulse Resp B/P (MAP) Pulse Ox O2 Delivery O2 Flow Rate FiO2 09/02/20 06:00 98.8 55 16 119/54 (75) 96 Room Air I&O- Last 24 Hours up to 6 AM 09/02/20 06:00 Intake Total 1760 ml Output Total 1400 ml Balance 360 ml Laboratory Data Labs 24H Laboratory Tests 2 09/01/20 22:07: Urine Color KATH, Urine Appearance CLOUDYH, Urine pH 5.0, Urine Specific Salol 1.019, Urine Protein 2+H, Urine Glucose (Auto)(UA) NEGATIVE, Urine Ketones (Auto) NEGATIVE, Urine Blood NEGATIVE, Urine Nitrite NEGATIVE, Urine Bilirubin NEGATIVE, Urine Urobilinogen 2.0H, Urine Leukocyte Esterase (Auto) TRACEH, Urine WBC (Auto) 3, Urine RBC (Auto) 4H, Urine Hyaline Casts (Auto) 0, Urine Bacteria (Auto) NEGATIVE, Urine Squamous Epithelial Cells 1, Urine Amorphous Sediment (Auto) SMALLH, Urine Sperm (Auto) , Urine Random Creatinine 104.0, Urine Random Sodium 21, Urine Random Urea Nitrogen 910 09/02/20 05:40: Nucleated Red Blood Cells % (auto) 0.0, Anion Gap 6L, Glomerular Filtration Rate 49.0, Calcium Level 8.7L, Total Bilirubin 1.3H, Aspartate Amino Transf (AST/SGOT) 83H, Alanine Aminotransferase (ALT/SGPT) 52, Alkaline Phosphatase 211H, C-Reactive Protein, Quantitative 18.20H, Total Protein 6.4, Albumin 2.4L, Albumin/Globulin Ratio 0.6 CBC/BMP Laboratory Tests 09/02/20 05:40 Microbiology Microbiology 08/29/20 Respiratory Virus Panel (PCR) ([facility]) - Final, Complete 08/29/20 Blood Culture - Preliminary, Resulted No Growth after 72 hours. All specime... 08/29/20 Blood Culture - Preliminary, Resulted No Growth after 72 hours. All specime... Discharge Medications Scheduled Amoxicillin/Potassium Clav (Amox-Clav 875-125 mg Tablet) 1 Each Tablet, 875 MG PO BID Apixaban (Eliquis) 2.5 Mg Tablet, 2.5 MG PO BID, (Reported) Aspirin (Aspirin EC) 81 Mg Tablet.dr, 81 MG PO DAILY, (Reported) Atorvastatin Calcium (Atorvastatin Calcium) 20 Mg Tablet, 20 MG PO DAILY, (Reported) Finasteride (Finasteride) 5 Mg Tablet, 5 MG PO DAILY, (Reported) Fish Oil/Dha/Epa (Fish Oil 1,200 mg Fish Oil) 1 Each Capsule, 1 CAP PO BID, (Reported) Levothyroxine Sodium (Levothyroxine Sodium) 112 Mcg Tablet, 112 MCG PO DAILY, (Reported) Multivit-Min/FA/Lycopen/Lutein (Centrum Silver Tablet) 1 Each Tablet, 1 TAB PO DAILY, (Reported) Nystatin (Nystatin Powder) 15 Gm Powder, 1 APLCT TOP BID apply to affected area(s) Pantoprazole Sodium (Pantoprazole Sodium) 40 Mg Tablet.dr, 40 MG PO DAILY, (Reported) Pregabalin (Pregabalin) 75 Mg Capsule, 75 MG PO QHS, (Reported) Tamsulosin HCl (Flomax) 0.4 Mg Capsule, 0.4 MG PO DAILY, (Reported) Allergies Coded Allergies: No Known Allergies (Unverified , 12/29/19) JOAO CREWS MD September 02, 2020 12:23
[2020-09-03 13:38] LABS: HEPATITIS B SURFACE ANTIGEN NEGATIVE (NEGATIVE)
[2020-09-03 14:06] LABS: HEPATITIS B CORE ANTIBODY IGM NEGATIVE (NEGATIVE); HEPATITIS C VIRUS ABY INDEX 0.1 INDEX (<0.8)
[2020-09-03 14:07] LABS: HEPATITIS A ANTIBODY IGM NEGATIVE (NEGATIVE)
== END 2020-09-02 14:02 | disposition home health service (06) | DRG 178 ==
LOC: EDBD 09:41 → M ED 09:41 → M ED INP 12:50 → ENRESERV 15:02 → M PCU 15:59 → M MSPAV 09-01 16:18
PROVIDERS: ADMIT Internal Medicine; ATTEND Internal Medicine
DX: J69.0 Pneumonitis due to inhalation of food and vomit (principal); I50.32 Chronic diastolic (congestive) heart failure; I13.0 Hypertensive heart and chronic kidney disease with heart failure and stage 1 through stage 4 chronic kidney disease, or unspecified chronic kidney disease; N17.9 Acute kidney failure, unspecified; R13.10 Dysphagia, unspecified; I25.10 Atherosclerotic heart disease of native coronary artery without angina pectoris; Z95.5 Presence of coronary angioplasty implant and graft; I48.91 Unspecified atrial fibrillation; 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 cardiac pacemaker; Z85.51 Personal history of malignant neoplasm of bladder; Z90.49 Acquired absence of other specified parts of digestive tract; Z87.891 Personal history of nicotine dependence; N18.30 Chronic kidney disease, stage 3 unspecified; R00.1 Bradycardia, unspecified; D50.0 Iron deficiency anemia secondary to blood loss (chronic); G62.9 Polyneuropathy, unspecified; K21.9 Gastro-esophageal reflux disease without esophagitis; N40.0 Benign prostatic hyperplasia without lower urinary tract symptoms; E03.9 Hypothyroidism, unspecified; Z79.01 Long term (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 anticoagulants; Z79.82 Long term (current) use of aspirin; Z79.899 Other long term (current) drug therapy; Z20.822 Contact with and (suspected) exposure to COVID-19; E80.7 Disorder of bilirubin metabolism, unspecified

== ENCOUNTER → 2020-09-05 | Outpatient (CLI) | payer MEDICARE, BC ==
[~2020-09-05] MED LIST changes: +AMOX875T2 PO; +ATOR1TAB21 PO; +NYST1POW9 TOP; +TORS20TA2 PO
--- NOTE | 2020-09-05 13:02 | REP ---
INDICATION: PVD COMPARISON: None. TECHNIQUE: Real time beasley scale and color Doppler evaluation of the bilateral lower extremity arterial vasculature using linear high frequency transducer. FINDINGS: Grayscale and color images demonstrate severe bilateral atheromatous plaquing from the common femoral artery through the ankles. The right lower extremity demonstrates biphasic arterial wave patterns from the common femoral artery to the proximal superficial femoral artery followed by monophasic wave patterns to the ankle along with 5:1 stenosis at the distal superficial femoral artery level. The left lower extremity demonstrates biphasic arterial wave patterns of the common femoral artery and profundus followed by monophasic wave patterns from the superficial femoral artery to the ankle along with approximately 2.5:1 stenosis ease at the distal superficial femoral artery and popliteal artery levels. Peak systolic velocities (cm/sec) Common femoral artery: Right 142; Left 132 Profunda femoris: Right 182; Left 176 SFA (proximal): Right 114; Left 82 SFA (mid): Right 107; Left 167 SFA (distal): Right 526/98; Left 253/93 Popliteal artery: Right 71; Left 230/90 GRISELDA (prox.): Right 89; Left 82 Tibioperoneal trunk: Right 94; Left 80 CAMPUS AIDE (prox.): Right 42; Left 42 CAMPUS AIDE (distal): Right 45; Left 33 GRISELDA (distal): Right 64; Left 91 IMPRESSION: Significant bilateral atheromatous plaquing with areas of stenosis as described above. <Electronically signed by Goyo Alvarado > 09/05/20 [id number]
== END ==
LOC: M RAD 09:34
PROVIDERS: ATTEND Internal Medicine
DX: I73.9 Peripheral vascular disease, unspecified (principal)

== ENCOUNTER → 2020-09-20 | Outpatient (REF) | payer MEDICARE, BC | LOC: M LAB REF 21:16 | PROVIDERS: ATTEND Physician Assistant | DX: L02.213 Cutaneous abscess of chest wall (principal) ==

== ENCOUNTER → 2020-09-24 | Outpatient (REF) | payer MEDICARE, BC | LOC: M SMT 15:46 | PROVIDERS: ATTEND Urology | DX: C67.9 Malignant neoplasm of bladder, unspecified (principal) ==

== ENCOUNTER → 2020-09-27 | Outpatient (REF) | payer MEDICARE, BC | LOC: M LAB REF 16:29 | PROVIDERS: ATTEND Internal Medicine | DX: I50.41 Acute combined systolic (congestive) and diastolic (congestive) heart failure (principal); L03.313 Cellulitis of chest wall ==

== ENCOUNTER 2020-10-19 21:31 | Inpatient (IN) | payer MEDICARE, BC ==
[~2020-10-19] VITALS: Ht 182.9 cm; Wt 95.3 kg
[2020-10-19] MEDS ORDERED: ACETAMINOPHEN TAB 650MG DOSE (2X325MG) PO ONE (21:45)
[2020-10-19] MEDS ORDERED: FERR32TA PO (22:58)
[2020-10-19] MEDS ORDERED: TORS10TA3 PO (22:58)
[2020-10-19 23:01] LABS: BASO % 0.2 % (0.0-1.0); EOS % 0.3 % (0.0-3.0); HEMATOCRIT 33.5 % (42.0-52.0); HEMOGLOBIN 10.7 g/dl (13.5-17.5); LYMPH # 0.7 10^3/uL (1.5-5.0); LYMPH % 6.2 % (24.0-44.0); MEAN CORPUSCULAR HEMOGLOBIN 30.1 pg (27.0-33.0); MEAN CORPUSCULAR HGB CONC 31.9 g/dl (32.0-36.5); MEAN CORPUSCULAR VOLUME 94.1 fl (80.0-96.0); MONO # 0.8 10^3/uL (0.0-0.8); MONO % 6.5 % (2.0-8.0); NEUTROPHILS # 9.9 10^3/uL (1.5-8.5); NEUTROPHILS % 86.2 % (36.0-66.0); PLATELET COUNT, AUTOMATED 151 10^3/uL (150-450); RED BLOOD COUNT 3.56 10^6/uL (4.30-6.10); WHITE BLOOD COUNT 11.5 10^3/uL (4.0-10.0)
[2020-10-19 23:15] LABS: INR 1.32; PARTIAL THROMBOPLASTIN TIME 34.9 SECONDS (24.2-38.5); PROTHROMBIN TIME 16.7 SECONDS (12.5-14.3)
--- NOTE | 2020-10-19 23:23 | REPVR ---
PROCEDURE INFORMATION: Exam: XR Chest Exam date and time: 10/19/20 (10:07pm) Age: 85 years old Clinical indication: Fever TECHNIQUE: Imaging protocol: XR of the chest Views: 1 view COMPARISON: Portable CXR of 08/29/20 FINDINGS: Comparison is made with a portable CXR done on 08/29/20. Stable cardiomegaly. S/P sternotomy. Dual-chamber pacemaker electrodes in place. No significant vascular congestion. No focal infiltrates. No significant pleural effusions. No pneumothorax. Advanced degenerative changes at each shoulder joint again seen. IMPRESSION: No acute findings. In general, a similar appearance was noted on 08/29/20. Electronically signed by: Harika Menezes On 10/19/2020 23:22:46 PM
--- NOTE | 2020-10-19 23:32 | REPVR ---
PROCEDURE INFORMATION: Exam: CT Head Without Contrast Exam date and time: 10/19/2020 10:10 PM Age: 85 years old Clinical indication: Injury or trauma; Fall; Blunt trauma (contusions or hematomas) TECHNIQUE: Imaging protocol: Computed tomography of the head without contrast. Radiation optimization: All CT scans at this facility use at least one of these dose optimization techniques: automated exposure control; mA and/or kV adjustment per patient size (includes targeted exams where dose is matched to clinical indication); or iterative reconstruction. COMPARISON: CT Head without contrast 01/28/2020 2:21 PM FINDINGS: Images through the base of the brain and posterior fossa, including the brainstem are slightly degraded by beam hardening artifacts from the adjacent calvarium. There is no evidence of acute intracranial hemorrhage, extra axial fluid collection or hematoma. There is global parenchymal volume loss, appropriate for age related involutional change. There is no midline shift or herniation. The ventricles are not dilated. No evidence of pneumocephalus. There is intracranial atherosclerosis. Mild periventricular and deep white matter microvascular ischemic changes again noted. Small left thalamic lacunar infarct again noted. No CT findings are seen at the current time to suggest changes of acute territorial vascular infarction. Note is made however, that CT changes, may lag clinical findings in acute CVA. If clinically indicated, consideration could be given to MRI with diffusion weighted imaging, due to its greater sensitivity, for early detection of acute ischemic change. Incidental intracranial calcifications are noted. There is a 4.5 cm right upper parietal scalp soft tissue hematoma. Ocular postoperative changes noted. No acute cranial vault fracture is seen. No fluid is seen within the visualized paranasal sinuses or mastoid air cells. The visualized middle ear cavities are not opacified. IMPRESSION: Scalp soft tissue swelling. No acute intracranial hemorrhage or acute calvarial fracture. Age related involutional changes. Intracranial atherosclerosis and microvascular ischemic changes again noted. Findings discussed above in detail. Electronically signed by: Blaise Treadwell On 10/19/2020 23:31:52 PM
[2020-10-19 23:33] LABS: ALBUMIN 3.2 GM/DL (3.2-5.2); BILIRUBIN,DIRECT 0.5 MG/DL (0.0-0.2); BILIRUBIN,TOTAL 1.2 MG/DL (0.2-1.0); CALCIUM LEVEL 8.5 MG/DL (8.8-10.2); CREATININE FOR GFR 1.36 MG/DL (0.70-1.30); GLOMERULAR FILTRATION RATE 52.8 (>35); POTASSIUM SERUM 4.7 MEQ/L (3.5-5.1); THYROID STIMULATING HORMONE 0.922 uIU/ML (0.358-3.740); TOTAL PROTEIN 7.3 GM/DL (6.4-8.2)
--- NOTE | 2020-10-19 23:37 | REPVR ---
PROCEDURE INFORMATION: Exam: XR Right Hand Exam date and time: 10/19/20 (9:57pm) Age: 85 years old Clinical indication: Fall TECHNIQUE: Imaging protocol: XR Right hand Views: 3 or more views COMPARISON: No relevant prior studies available FINDINGS: No prior hand films are available for comparison. Diffuse bony demineralization. No acute fracture nor dislocation. Advanced degenerative changes at the right 1st and 2nd carpo-metacarpal joints, with faint soft tissue calcifications present. Degenerative changes at the radio-carpal joint. Fixation plate and screws (S/P ORIF) applied to the distal right radius. IMPRESSION: No acute traumatic findings. Diffuse bony demineralization. Degenerative changes See additional comments above. Electronically signed by: Harika Menezes On 10/19/2020 23:37:22 PM
--- NOTE | 2020-10-19 23:41 | REPVR ---
PROCEDURE INFORMATION: Exam: CT Cervical Spine Without Contrast Exam date and time: 10/19/2020 10:10 PM Age: 85 years old Clinical indication: Injury or trauma; Fall; Blunt trauma TECHNIQUE: Imaging protocol: Computed tomography images of the cervical spine without contrast. Radiation optimization: All CT scans at this facility use at least one of these dose optimization techniques: automated exposure control; mA and/or kV adjustment per patient size (includes targeted exams where dose is matched to clinical indication); or iterative reconstruction. COMPARISON: CT Spine,cervical w/o contrast 01/28/2020 2:21 PM FINDINGS: The cervical vertebral body heights are maintained. There is minimal retrolisthesis of C5 upon C6, C6 upon C7 and C7 upon T1. These are similar to the prior exam and most likely on a chronic degenerative basis. To evaluate stability, consider lateral flexion and extension radiographs. There is thickening of the prevertebral soft tissues secondary to prominent anterior osteophytes. No prevertebral soft tissue hematoma is seen. The atlantodental interval is maintained. The facet joints are not subluxed or dislocated. No acute fracture of the cervical spine is seen. Severe degenerative changes of the cervical spine are noted with moderate to severe disc space loss, disc space gas, heterogeneous bony mineralization, anterior osteophytes, posterior bony ridging, uncovertebral bony hypertrophy and facet arthropathy. There is bony fusion across some levels. Degenerative changes appears similar to the prior exam. Bony proliferative changes result in severe appearing central canal compromise with nominal AP dimension of the spinal canal down to 4.1 mm at the C6/7 level and 5 mm at the C5/6 level. Multilevel severe foraminal compromise suspected. Additional disc displacements or soft tissue compromise to the spinal canal are not reliably assessed by this technique. If there are neurologic symptoms, further evaluation by emergent MRI is advised. Mild emphysematous changes, pleural thickening and parenchymal scarring seen at the visualized lung apices. There is an incompletely imaged noncalcified 7.9 mm nodular opacity at the left lung apex (image 102, series 302). Clinical correlation with risk factors is advised. For patients at low risk (minimal or absent history of smoking and of other known risk factors), recommend CT Chest at 3-6 months, then consider CT Chest at 18-24 months. For patients at high risk (history of smoking or of other known risk factors), recommend CT Chest at 3-6 months, then CT Chest at 18-24 months. (Reference: [facility]). Carotid vascular calcifications noted. IMPRESSION: No acute fracture of the cervical spine. Minimal chronic appearing is cervical malalignments noted, likely degenerative. Severe degenerative changes are noted, most likely resulting in cord compromise. Findings discussed above in detail. Indeterminate pulmonary nodular opacity. Nonemergent recommendations discussed above. Electronically signed by: Blaise Treadwell On 10/19/2020 23:41:24 PM
[2020-10-20 00:10] LABS: RSV AMPLIFICATION NEGATIVE (NEGATIVE)
[2020-10-20] MEDS ORDERED: cefTRIAXone SOD 2 GM in D5W MINI-BAG PLUS 50 ML IV ONE (01:30)
[2020-10-20] MEDS ORDERED: AZITHROMYCIN INJ 500 MG, VIAL MATE ADAPTER 1 EACH in NS 250 ML IV ONE (01:30)
--- NOTE | 2020-10-20 01:34 | REPVR ---
PROCEDURE INFORMATION: Exam: CT Chest without Contrast; Diagnostic Exam date and time: 10/20/20 (1:01am) Age: 85 years old Clinical indication: Fever. Possible pneumonia. TECHNIQUE: Imaging protocol: Diagnostic computed tomography of the chest without contrast. 3D rendering (Not supervised by radiologist): MIP and/or 3D reconstructed images were created by the technologist. Radiation optimization: All CT scans at this facility use at least one of these dose optimization techniques: automated exposure control; mA and/or kV adjustment per patient size (includes targeted exams where dose is matched to clinical indication); or iterative reconstruction. COMPARISON: CT CHEST of 06/30/20 FINDINGS: Cardiomegaly. S/P sternotomy. Dual-chamber pacemaker electrodes in place. Generator pack in the left upper chest wall. Streaky opacities in the medial RUL. Minimal streaky DIAN changes. More extensive streaky and patchy opacifies posterior and inferior to the right hilum. Consolidation and/or atelectasis posteromedially near the right lung base. Minimal right pleural effusion. Multiple small nonspecific mediastinal nodes. Probable right hilar nodes. Multiple small right renal cysts (right kidney is partially imaged). Infrarenal abdominal aortic graft (superior portion imaged). Mildly aneurysmal aorta just above the graft. Multilevel degenerative thoracolumbar spine changes. IMPRESSION: Streaky and patchy right lung opacities, compatible with infectious pneumonia. Areas of consolidation and/or atelectasis posterior and inferior to the right hilum. Right hilar adenopathy (probably inflammatory / reactive in nature). Some streaky parenchymal disease in the medial RUL and faintly in the DIAN, also. Minimal right pleural effusion. Cardiomegaly. Pacemaker electrodes in place. Infrarenal abdominal aortic graft (partially imaged). See additional comments above. Electronically signed by: Harika Menezes On 10/20/2020 01:33:36 AM
[2020-10-20] MEDS ORDERED: NS 500 ML IV ONE (01:35)
[2020-10-20] MEDS ORDERED: IBUPROFEN 400MG TAB PO ONE (01:35)
[2020-10-20] MEDS ORDERED: MAALOX 30 ML SUSP *UDC PO PRN (02:15)
[2020-10-20] MEDS ORDERED: MOM 30ML SUSPENSION UDC PO PRN (02:15)
--- NOTE | 2020-10-20 02:23 | HPEPDOC ---
[facility] Medical History & Physical Date of Admission Oct 20, 2020 Date of Service: Oct 20, 2020 Attending Physician: CHRISTOPHER CARRANZA MD History and Physical CHIEF COMPLAINT: [85 y/o male presents after a fall] HISTORY OF PRESENT ILLNESS: [This is an 85 y/o male with a pmh of cad s/p cabg, chf, htn, a-fib s/p pacemaker placement on eliquis, severe spinal stenosis, several bouts of aspiration pneumonia, bladder ca s/p chemo who presents to the ed with his daughter after suffering a fall today. Patient states that he went to sit down today and simply missed his chair and fell and struck his head. Kelli ent states that he was not dizzy pre fall, and was not groggy post fall. Patient's daughter in the room states that according to a witness, patient lost consciousness for several seconds before coming to. Patient's daughter states that he has been falling about once or twice a month for several months. Patient himself states that he has also felt "warm" for the past two days. Patient states that his head feels fine and at the time of my exam denies headaches, blurry or double vision, weakness, paresthesias, paralysis, chest pain, sob, wheezing, cough, n/v/d/c. After spiking fevers, patient found to have right lung infiltrate on imaging in the ED. ] PAST MEDICAL HISTORY: 1. [See HPI PAST SURGICAL HISTORY: 1. [B/l cataract removal]. 2. [Pacemaker placement]. 3. [CABG 4. AAA repair 5. Cholecystectomy 6. Unspecified hernia repair 7. TURP 8. Unspecified spinal surgery]. SOCIAL HISTORY: Tobacco use:[Denies] ETOH: [Denies] Illicit drug use: [Denies] FAMILY HISTORY: Reviewed - none pertinent ALLERGIES: Please see below. REVIEW OF SYSTEMS: CONSTITUTIONAL: [See HPI]. HEENT: [Denies uri sx]. CARDIOVASCULAR: [See HPI]. RESPIRATORY: [See HPI]. GASTROINTESTINAL: [See HPI]. GENITOURINARY: [Denies dysuria]. SKIN: [Denies rash]. MUSCULOSKELETAL: [Denies acute joint/back pain]. NEUROLOGICAL: [Denies syncope, paresthesias]. ENDOCRINE: [Denies hx of DM]. HEMATOLOGIC/LYMPHATIC: [Denies easy bruising]. HOME MEDICATIONS: Please see below. PHYSICAL EXAMINATION: VITAL SIGNS: Please see below. GENERAL APPEARANCE: [This is a fatigued appearing 85 y/o male. He is somnolent when i entered the room but was easily aroused.]. HEENT: [No mass or lesion. EOMI. No scleral icterus. Nares patent. Oral mucosa dry]. CARDIOVASCULAR: [Miko rate, regular rhythm. No murmurs, rubs, gallops]. LUNGS: [Good air flow b/l. Scattered rhonchi.]. ABDOMEN: [Soft, nontender]. MUSCULOSKELETAL: [No joint deformity]. EXTREMITIES: [Patient has large skin tear on his right hand. Wound is scabbed over and no longer bleeding. No peripheral edema noted. No overlying skin changes. Pulses intact.]. NEUROLOGICAL: [Speech clear. A+Ox3. Patient moves all fours freely. No focal deficits.]. PSYCHIATRIC: [Mood and affect appear appropriate.]. LABORATORY DATA: See below. IMAGING: [CT Cspine: FINDINGS: The cervical vertebral body heights are maintained. There is minimal retrolisthesis of C5 upon C6, C6 upon C7 and C7 upon T1. These are similar to the prior exam and most likely on a chronic degenerative basis. To evaluate stability, consider lateral flexion and extension radiographs. There is thickening of the prevertebral soft tissues secondary to prominent anterior osteophytes. No prevertebral soft tissue hematoma is seen. The atlantodental interval is maintained. The facet joints are not subluxed or dislocated. No acute fracture of the cervical spine is seen. Severe degenerative changes of the cervical spine are noted with moderate to severe disc space loss, disc space gas, heterogeneous bony mineralization, anterior osteophytes, posterior bony ridging, uncovertebral bony hypertrophy and facet arthropathy. There is bony fusion across some levels. Degenerative changes appears similar to the prior exam. Bony proliferative changes result in severe appearing central canal compromise with nominal AP dimension of the spinal canal down to 4.1 mm at the C6/7 level and 5 mm at the C5/6 level. Multilevel severe foraminal compromise suspected. Additional disc displacements or soft tissue compromise to the spinal canal are not reliably assessed by this technique. If there are neurologic symptoms, further evaluation by emergent MRI is advised. Mild emphysematous changes, pleural thickening and parenchymal scarring seen at the visualized lung apices. There is an incompletely imaged noncalcified 7.9 mm nodular opacity at the left lung apex (image 102, series 302). Clinical correlation with risk factors is advised. For patients at low risk (minimal or absent history of smoking and of other known risk factors), recommend CT Chest at 3-6 months, then consider CT Chest at 18-24 months. For patients at high risk (history of smoking or of other known risk factors), recommend CT Chest at 3-6 months, then CT Chest at 18-24 months. (Reference: [facility]). Carotid vascular calcifications noted. IMPRESSION: No acute fracture of the cervical spine. Minimal chronic appearing is cervical malalignments noted, likely degenerative. Severe degenerative changes are noted, most likely resulting in cord compromise. Findings discussed above in detail. Indeterminate pulmonary nodular opacity. Nonemergent recommendations discussed above. CXR: FINDINGS: Comparison is made with a portable CXR done on 08/29/20. Stable cardiomegaly. S/P sternotomy. Dual-chamber pacemaker electrodes in place. No significant vascular congestion. No focal infiltrates. No significant pleural effusions. No pneumothorax. Advanced degenerative changes at each shoulder joint again seen. IMPRESSION: No acute findings. In general, a similar appearance was noted on 08/29/20.ADDENDUM ----- On further review, slightly patchy opacity at the right lung base. Also, mild faint nonspecific streaky RUL changes. Multilobar right-sided infectious pneumonia may be present. Hand XR: FINDINGS: No prior hand films are available for comparison. Diffuse bony demineralization. No acute fracture nor dislocation. Advanced degenerative changes at the right 1st and 2nd carpo-metacarpal joints, with faint soft tissue calcifications present. Degenerative changes at the radio-carpal joint. Fixation plate and screws (S/P ORIF) applied to the distal right radius. IMPRESSION: No acute traumatic findings. Diffuse bony demineralization. Degenerative changes See additional comments above. Head CT: FINDINGS: Images through the base of the brain and posterior fossa, including the brainstem are slightly degraded by beam hardening artifacts from the adjacent calvarium. There is no evidence of acute intracranial hemorrhage, extra axial fluid collection or hematoma. There is global parenchymal volume loss, appropriate for age related involutional change. There is no midline shift or herniation. The ventricles are not dilated. No evidence of pneumocephalus. There is intracranial atherosclerosis. Mild periventricular and deep white matter microvascular ischemic changes again noted. Small left thalamic lacunar infarct again noted. No CT findings are seen at the current time to suggest changes of acute territorial vascular infarction. Note is made however, that CT changes, may lag clinical findings in acute CVA. If clinically indicated, consideration could be given to MRI with diffusion weighted imaging, due to its greater sensitivity, for early detection of acute ischemic change. Incidental intracranial calcifications are noted. There is a 4.5 cm right upper parietal scalp soft tissue hematoma. Ocular postoperative changes noted. No acute cranial vault fracture is seen. No fluid is seen within the visualized paranasal sinuses or mastoid air cells. The visualized middle ear cavities are not opacified. IMPRESSION: Scalp soft tissue swelling. No acute intracranial hemorrhage or acute calvarial fracture. Age related involutional changes. Intracranial atherosclerosis and microvascular ischemic changes again noted. Findings discussed above in detail. Chest CT: FINDINGS: Cardiomegaly. S/P sternotomy. Dual-chamber pacemaker electrodes in place. Generator pack in the left upper chest wall. Streaky opacities in the medial RUL. Minimal streaky DIAN changes. More extensive streaky and patchy opacifies posterior and inferior to the right hilum. Consolidation and/or atelectasis posteromedially near the right lung base. Minimal right pleural effusion. Multiple small nonspecific mediastinal nodes. Probable right hilar nodes. Multiple small right renal cysts (right kidney is partially imaged). Infrarenal abdominal aortic graft (superior portion imaged). Mildly aneurysmal aorta just above the graft. Multilevel degenerative thoracolumbar spine changes. IMPRESSION: Streaky and patchy right lung opacities, compatible with infectious pneumonia. Areas of consolidation and/or atelectasis posterior and inferior to the right hilum. Right hilar adenopathy (probably inflammatory / reactive in nature). Some streaky parenchymal disease in the medial RUL and faintly in the DIAN, also. Minimal right pleural effusion. Cardiomegaly. Pacemaker electrodes in place. Infrarenal abdominal aortic graft (partially imaged). See additional comments above.] MICROBIOLOGY: Please see below. ASSESSMENT: [This is an 85 y/o male with a pmh of cad s/p cabg, chf, htn, a-fib s/p pacemaker placement on eliquis, severe spinal stenosis, several bouts of aspiration pneumonia, bladder ca s/p chemo who presents to the ed with his daughter after suffering a fall today. After spiking fevers, patient found to have right lung infiltrate on imaging in the ED. ]. . PLAN: 1. [CAP - patient does not meet sirs criteria - rocephin and azithromycin began in the ed, will continue this regimen on the floor - will give ivf - incentive spirometry - aspiration precautions d/t hx of aspiration pna - admit to med surg for tx 2. Frequent falls - potentially orthostatic htn vs. spinal stenosis - can consider stopping therapeutic anticoagulation if falls continue - neuro checks for now as pt struck his head 3. Bradycardia - According to pt's daughter, patients pacemaker is set to rate of 50 - patient does not seem to be symptomatic - will place on tele for now 4. Hx of a-fib - currently rate controlled - continue eliquis 5. CHF - pt not in acute exacerbation - continue torsemide 6. CAD - continue asa 7. GERD - continue pantoprazole 8. HLD - continue atorvastatin 9. BPH - continue flomax, proscar 10. Hypothyroidism - continue synthroid 11. Severe spinal stenosis - patient should follow up with spinal surgeon if he wishes to seek tx - continue lyrica DVT prophylaxis - pt on eliquis]. Vital Signs Vital Signs Date Time Temp Pulse Resp B/P (MAP) Pulse Ox O2 Delivery O2 Flow Rate FiO2 10/20/20 00:38 50 93 10/20/20 00:30 112/56 (74) 10/19/20 23:53 101.1 10/19/20 23:08 16 Room Air Laboratory Data Labs 24H Laboratory Tests 2 10/19/20 22:49: Immature Granulocyte % (Auto) 0.6, Neutrophils (%) (Auto) 86.2H, Lymphocytes (%) (Auto) 6.2L, Monocytes (%) (Auto) 6.5, Eosinophils (%) (Auto) 0.3, Basophils (%) (Auto) 0.2, Neutrophils # (Auto) 9.9H, Lymphocytes # (Auto) 0.7L, Monocytes # (Auto) 0.8, Eosinophils # (Auto) 0.0, Basophils # (Auto) 0.0, Nucleated Red Blood Cells % (auto) 0.0, Prothrombin Time 16.7H, Prothromb Time International Ratio 1.32, Activated Partial Thromboplast Time 34.9, Anion Gap 7L, Glomerular Filtration Rate 52.8, Calcium Level 8.5L, Total Bilirubin 1.2H, Direct Bilirubin 0.5H, Aspartate Amino Transf (AST/SGOT) 59H, Alanine Aminotransferase (ALT/SGPT) 37, Alkaline Phosphatase 147H, GF-Jyo-H-Type Natriuretic Peptide 2144H, Total Protein 7.3, Albumin 3.2, Albumin/Globulin Ratio 0.8, Thyroid Stimulating Hormone (TSH) 0.922 10/19/20 23:11: Coronavirus (COVID-19)(PCR) NEGATIVE, Influenza Type A (RT-PCR) NEGATIVE, Influenza Type B (RT-PCR) NEGATIVE, Respiratory Syncytial Virus (PCR) NEGATIVE 10/20/20 00:24: Urine Color YELLOW, Urine Appearance CLEAR, Urine pH 5.0, Urine Specific [place] 1.013, Urine Protein 2+H, Urine Glucose (UA) NEGATIVE, Urine Ketones NEGATIVE, Urine Blood 2+H, Urine Nitrite NEGATIVE, Urine Bilirubin NEGATIVE, Urine Urob ilinogen 0.2, Urine Leukocyte Esterase NEGATIVE, Urine WBC (Auto) 2, Urine RBC (Auto) 5H, Urine Hyaline Casts (Auto) 0, Urine Bacteria (Auto) NEGATIVE, Urine Squamous Epithelial Cells 0, Urine Sperm (Auto) CBC/BMP Laboratory Tests 10/19/20 22:49 Microbiology Microbiology 10/19/20 Blood Culture, Received Pending 10/19/20 Blood Culture, Received Pending Home Medications Scheduled Apixaban (Eliquis) 2.5 Mg Tablet, 2.5 MG PO BID Aspirin (Aspirin EC) 81 Mg Tablet.dr, 81 MG PO DAILY Atorvastatin Calcium (Atorvastatin Calcium) 20 Mg Tablet, 20 MG PO DAILY Ferrous Gluconate (Ferrous Gluconate) 324 Mg Tablet, 324 MG PO DAILY Finasteride (Finasteride) 5 Mg Tablet, 5 MG PO DAILY Fish Oil/Dha/Epa (Fish Oil 1,200 mg Fish Oil) 1 Each Capsule, 1 CAP PO BID Levothyroxine Sodium (Levothyroxine Sodium) 112 Mcg Tablet, 112 MCG PO DAILY Multivit-Min/FA/Lycopen/Lutein (Centrum Silver Tablet) 1 Each Tablet, 1 TAB PO DAILY Pantoprazole Sodium (Pantoprazole Sodium) 40 Mg Tablet.dr, 40 MG PO DAILY Pregabalin (Pregabalin) 75 Mg Capsule, 75 MG PO QHS Tamsulosin HCl (Flomax) 0.4 Mg Capsule, 0.4 MG PO DAILY Torsemide (Torsemide) 10 Mg Tablet, 10 MG PO DAILY Allergies Coded Allergies: No Known Allergies (Unverified , 12/29/19) A-FIB/CHADSVASC A-FIB History Current/History of A-Fib/PAF?: Yes Current PO Anticoag Therapy: Yes NANCY MCNAMARA Oct 20, 2020 02:23
[2020-10-20] MEDS: LEVOTHYROXINE 112MCG TABLET (0.112MG) PO SCH (06:00)
[2020-10-20 08:07] LABS: HEMATOCRIT 30.1 % (42.0-52.0); HEMOGLOBIN 9.6 g/dl (13.5-17.5); MEAN CORPUSCULAR HEMOGLOBIN 29.8 pg (27.0-33.0); MEAN CORPUSCULAR HGB CONC 31.9 g/dl (32.0-36.5); MEAN CORPUSCULAR VOLUME 93.5 fl (80.0-96.0); PLATELET COUNT, AUTOMATED 127 10^3/uL (150-450); RED BLOOD COUNT 3.22 10^6/uL (4.30-6.10); WHITE BLOOD COUNT 8.6 10^3/uL (4.0-10.0)
[2020-10-20 08:37] LABS: BLOOD UREA NITROGEN 27 MG/DL (7-18); CALCIUM LEVEL 8.5 MG/DL (8.8-10.2); CARBON DIOXIDE LEVEL 27 MEQ/L (21-32); CHLORIDE LEVEL 107 MEQ/L (98-107); CREATININE FOR GFR 1.21 MG/DL (0.70-1.30); GLOMERULAR FILTRATION RATE > 60.0 (>35); GLUCOSE, FASTING 107 MG/DL (70-100); MAGNESIUM LEVEL 1.7 MG/DL (1.8-2.4); POTASSIUM SERUM 3.5 MEQ/L (3.5-5.1); SODIUM LEVEL 144 MEQ/L (136-145)
[2020-10-20] MEDS: PANTOPRAZOLE 40MG TAB (PROTONIX) PO SCH (09:27)
[2020-10-20] MEDS: TAMSULOSIN 0.4 MG CAP PO SCH (09:28)
[2020-10-20] MEDS: DOCUSATE SODIUM 100MG CAPSULE PO SCH ×2 (09:28→21:33)
[2020-10-20] MEDS: TORSEMIDE 10 MG TABLET PO SCH (09:29)
[2020-10-20] MEDS: ATORVASTATIN 20 MG TAB PO SCH (09:29)
[2020-10-20] MEDS: AZITHROMYCIN 250MG TABLET PO SCH (09:29)
[2020-10-20] MEDS: MULTIVITAMINS/MINERALS THERAP 1 TAB PO SCH (09:30)
[2020-10-20] MEDS: ASPIRIN 81MG ENTERIC TABLET PO SCH (09:30)
[2020-10-20] MEDS: FINASTERIDE 5 MG TAB PO SCH (09:31)
[2020-10-20] MEDS: APIXABAN 2.5 MG TAB (ELIQUIS) PO SCH ×2 (09:31→21:33)
[2020-10-20 13:20] VITALS: BP 155/70
[2020-10-20] MEDS: FERROUS GLUCONATE 324 MG TAB PO SCH (13:35)
[2020-10-20] MEDS: ACETAMINOPHEN TAB 650MG DOSE (2X325MG) PO PRN ×2 (13:35→21:34)
--- NOTE | 2020-10-20 17:44 | ECGEPIP ---
[facility] - ED Test Date: 2020-10-19 Pat Name: ELIZABETH DEWEY Department: Room: [place] [address] Gender: Male Night Shift Manager: SANDI : [id number] Requested By: REJI Ryan Order Number: [id number] Reading MD: Reji Stauffer Measurements Intervals [place] Rate: 50 P: [place]: QRS: -70 QRSD: 180 T: 85 QT: 496 QTc: 452 Interpretive Statements Ventricular-paced rhythm extensive artifact Electronically Signed on 10-20-2020 17:44:12 EDT by Reji Stauffer
[2020-10-20 18:00] VITALS: BP 122/58
[2020-10-20] MEDS: cefTRIAXone SOD 2 GM in D5W MINI-BAG PLUS 50 ML IV SCH (21:33)
[2020-10-20] MEDS: PREGABALIN 75 MG CAP(LYRICA) PO SCH (21:33)
[2020-10-20 22:00] VITALS: BP 124/57
[2020-10-20] MEDS ORDERED: RAMELTEON 8 MG TAB (ROZEREM) PO PRN (23:05)
[2020-10-21 05:51] LABS: HEMATOCRIT 33.5 % (42.0-52.0); HEMOGLOBIN 10.7 g/dl (13.5-17.5); MEAN CORPUSCULAR HEMOGLOBIN 29.8 pg (27.0-33.0); MEAN CORPUSCULAR HGB CONC 31.9 g/dl (32.0-36.5); MEAN CORPUSCULAR VOLUME 93.3 fl (80.0-96.0); PLATELET COUNT, AUTOMATED 151 10^3/uL (150-450); RED BLOOD COUNT 3.59 10^6/uL (4.30-6.10); WHITE BLOOD COUNT 8.8 10^3/uL (4.0-10.0)
[2020-10-21 06:00] VITALS: BP 162/68
[2020-10-21] MEDS: LEVOTHYROXINE 112MCG TABLET (0.112MG) PO SCH (06:00)
[2020-10-21 06:12] LABS: CALCIUM LEVEL 8.7 MG/DL (8.8-10.2); CREATININE FOR GFR 1.33 MG/DL (0.70-1.30); GLOMERULAR FILTRATION RATE 54.1 (>35); MAGNESIUM LEVEL 1.7 MG/DL (1.8-2.4)
[2020-10-21] MEDS: ASPIRIN 81MG ENTERIC TABLET PO SCH (08:40)
[2020-10-21] MEDS: MULTIVITAMINS/MINERALS THERAP 1 TAB PO SCH (08:40)
[2020-10-21] MEDS: DOCUSATE SODIUM 100MG CAPSULE PO SCH ×2 (08:41→21:10)
[2020-10-21] MEDS: AZITHROMYCIN 250MG TABLET PO SCH (08:41)
[2020-10-21] MEDS: PANTOPRAZOLE 40MG TAB (PROTONIX) PO SCH (08:41)
[2020-10-21] MEDS: TORSEMIDE 10 MG TABLET PO SCH (08:41)
[2020-10-21] MEDS: ATORVASTATIN 20 MG TAB PO SCH (08:41)
[2020-10-21] MEDS: FINASTERIDE 5 MG TAB PO SCH (08:41)
[2020-10-21] MEDS: APIXABAN 2.5 MG TAB (ELIQUIS) PO SCH ×2 (08:41→21:10)
[2020-10-21] MEDS: FERROUS GLUCONATE 324 MG TAB PO SCH (08:41)
[2020-10-21] MEDS: TAMSULOSIN 0.4 MG CAP PO SCH (08:41)
[2020-10-21] MEDS ORDERED: MAG SULF 1GM/100ML (MAG RUN) 1 GM in IV 1 EA IV ONE (09:00)
--- NOTE | 2020-10-21 11:47 | IPN ---
PROGRESS NOTE DATE: 10/21/2020 SUBJECTIVE: The patient denies any worsening shortness of breath. Says he has a persistent cough, but dry. No fever or chills overnight. Much more comfortable. This morning no nausea, vomiting, headaches, or diarrhea. OBJECTIVE: VITAL SIGNS: Temperature 98.1, pulse 51, respiratory rate 18, blood pressure 162/68, 92% on room air. On routine vitals, the patient was found to have bradycardia with ventricular rate of 49 to 52 on no beta-blockers or calcium channel blockers. GENERAL: Awake, alert, and oriented to person, place, and time. Answering questions appropriately. In no distress. No use of respiratory accessory muscles. The patient has resting tremors bilateral upper extremities. Speaks in full sentences without conversational dyspnea. HEENT: No JVD. No thyromegaly. No cervical lymphadenopathy. No carotid bruit. LUNGS: Diminished with crackles noted at right base. HEART: S1, S2 regularly irregular. Bradycardic. ABDOMEN: Soft, nontender, and nondistended with positive bowel sounds. EXTREMITIES: No cyanosis or clubbing. Chronic venous stasis changes. Skin tear of the right hand. DIAGNOSTIC STUDIES: Laboratory data, imaging studies, and microbiology have been reviewed. ASSESSMENT: This is an 85-year-old male with history of coronary artery disease (CAD), coronary artery bypass grafting (CABG), diastolic heart failure, atrial fibrillation (AFib) status post pacemaker, chronic hypertension, severe spinal stenosis, aspiration pneumonia, bladder carcinoma (CA) status post chemotherapy admitted after a fall found to have community-acquired pneumonia. IMPRESSION: 1. Community-acquired pneumonia currently on IV ceftriaxone day #2. Aspiration precautions and incentive spirometry. 2. Recurrent falls due to spinal stenosis and debility. Acute rehabilitation unit (ARU) consulted. 3. Bradycardia. The patient has a pacemaker. 4. History of atrial fibrillation (AFib) and sick sinus syndrome with pacemaker currently bradycardic, but heart rate is set to 50 on chronic Eliquis. 5. Congestive heart failure (CHF) and diastolic dysfunction compensated. 6. History of coronary artery disease (CAD) on aspirin. 7. Reflux on Protonix. 8. Hyperlipidemia on atorvastatin. 9. BPH on Flomax and Proscar. 10. Hypothyroidism on Synthroid. 11. Spinal stenosis. 12. ARU on chronic Lyrica. 13. Disposition: ARU screen. MTDD
[2020-10-21 14:00] VITALS: BP 145/59
[2020-10-21] MEDS: cefTRIAXone SOD 2 GM in D5W MINI-BAG PLUS 50 ML IV SCH (21:10)
[2020-10-21] MEDS: PREGABALIN 75 MG CAP(LYRICA) PO SCH (21:10)
[2020-10-21 22:00] VITALS: BP 151/67
[2020-10-22 06:00] VITALS: BP_SYST 129; BP_SYST 130; BP_SYST 132; BP_DIAS 60; BP_DIAS 61
[2020-10-22] MEDS: LEVOTHYROXINE 112MCG TABLET (0.112MG) PO SCH (06:15)
[2020-10-22 06:55] LABS: HEMATOCRIT 28.6 % (42.0-52.0); HEMOGLOBIN 9.5 g/dl (13.5-17.5); MEAN CORPUSCULAR HGB CONC 33.2 g/dl (32.0-36.5); MEAN CORPUSCULAR VOLUME 90.2 fl (80.0-96.0); PLATELET COUNT, AUTOMATED 155 10^3/uL (150-450); RED BLOOD COUNT 3.17 10^6/uL (4.30-6.10); WHITE BLOOD COUNT 8.7 10^3/uL (4.0-10.0)
[2020-10-22 07:27] LABS: CALCIUM LEVEL 8.6 MG/DL (8.8-10.2); CREATININE FOR GFR 1.53 MG/DL (0.70-1.30); GLOMERULAR FILTRATION RATE 46.1 (>35); MAGNESIUM LEVEL 1.8 MG/DL (1.8-2.4); POTASSIUM SERUM 3.4 MEQ/L (3.5-5.1)
[2020-10-22] MEDS: FINASTERIDE 5 MG TAB PO SCH (08:54)
[2020-10-22] MEDS: FERROUS GLUCONATE 324 MG TAB PO SCH (08:54)
[2020-10-22] MEDS: APIXABAN 2.5 MG TAB (ELIQUIS) PO SCH ×2 (08:54→20:16)
[2020-10-22] MEDS: MULTIVITAMINS/MINERALS THERAP 1 TAB PO SCH (08:54)
[2020-10-22] MEDS: PANTOPRAZOLE 40MG TAB (PROTONIX) PO SCH (08:54)
[2020-10-22] MEDS: DOCUSATE SODIUM 100MG CAPSULE PO SCH ×2 (08:54→20:16)
[2020-10-22] MEDS: TAMSULOSIN 0.4 MG CAP PO SCH (08:54)
[2020-10-22] MEDS: AZITHROMYCIN 250MG TABLET PO SCH (08:54)
[2020-10-22] MEDS: ASPIRIN 81MG ENTERIC TABLET PO SCH (08:55)
[2020-10-22] MEDS: ATORVASTATIN 20 MG TAB PO SCH (08:55)
[2020-10-22] MEDS: ACETAMINOPHEN 500 MG TAB PO SCH ×3 (08:55→20:17)
[2020-10-22] MEDS: TORSEMIDE 10 MG TABLET PO SCH (08:58)
--- NOTE | 2020-10-22 09:07 | REP ---
INDICATION: B/L WRIST PAIN COMPARISON: None. TECHNIQUE: AP and lateral views of the right and left wrist. FINDINGS: Left wrist demonstrates advanced age-related generalized morna carpal osteoarthritic degenerative changes including periarticular sclerosis/irregularities, intra-articular chondrocalcinosis, and elements of joint space narrowing. No acute fracture or dislocation. Right wrist demonstrates advanced age-related generalized moran carpal osteoarthritic and posttraumatic degenerative changes including periarticular sclerosis/irregularities, chondrocalcinosis and elements of joint space narrowing. No acute fracture or dislocation. IMPRESSION: Advanced osteoarthritic degenerative changes bilaterally. Prior right wrist fixation. No acute fracture or dislocation. <Electronically signed by Goyo Alvarado > 10/22/20 [id number]
--- NOTE | 2020-10-22 09:09 | REP ---
INDICATION: SOB COUGH COMPARISON: 10/19/2020 TECHNIQUE: Portable AP view of the chest FINDINGS: Relatively new moderate right lower lobe consolidation appears increased compared to prior x-ray and CT. Left hemithorax without obvious consolidation or effusion. There is no evidence for pneumothorax. The mediastinum and cardiac silhouette are stable. Skeletal structures are intact. IMPRESSION: Increasing moderate right lower lobe consolidation. Cannot exclude small associated effusion. <Electronically signed by Goyo Alvarado > 10/22/20 [id number]
--- NOTE | 2020-10-22 11:23 | IPN ---
PROGRESS NOTE DATE: 10/22/2020 SUBJECTIVE: Patient denies any cough, shortness of breath, fever or chills overnight. He complains of bilateral wrist pain without swelling or erythema. No recent trauma. No other issues per nursing over night aside from chronic bradycardia, but pacemaker is set. OBJECTIVE: Vital signs: Temperature 98.6, pulse 53, respiratory rate 20, blood pressure 132/61, 94% on room air. General: Awake, alert, oriented to himself, answering questions appropriately in no distress. Neck: No JVD, thyromegaly or cervical lymphadenopathy. Lungs: Diminished with crackles at the right base. Heart: S1 and S2 irregularly irregular and bradycardic. Abdomen: Soft, nontender, nondistended, positive bowel sounds. Extremities: No cyanosis or clubbing. Chronic venous stasis and skin tears on the right hand. Bilateral wrists have no effusion, full range of motion, no bogginess, erythema or significant tenderness. LABORATORY DATA: Laboratory and microbiology have been reviewed. IMAGING STUDIES: Reviewed. ASSESSMENT: 85-florencia-old male with history of CAD, CABG, diastolic heart failure, chronic afib, pacemaker, hypertension, severe spinal stenosis, debility, aspiration pneumonia, bladder CA status post chemotherapy admitted due to recurrent falls, found to have community acquired pneumonia. IMPRESSIONS/PLAN: 1. Community acquired pneumonia: On I.V. ceftriaxone day number 3. Aspiration precautions. White count is normal. Afebrile over night. Clinically improving. 2. Recurrent falls due to spinal stenosis and debility: ARU Screen has been placed. 3. History of sick sinus syndrome with afib and bradycardia with pacemaker set on 50: On chronic anticoagulation with Eliquis. Asymptomatic despite heart rate of 48 at the bedside. 4. Diastolic congestive heart failure: Compensated. Patient may be resumed on his home medications. Despite creatinine slightly increasing patient remains at stage 3. 5. Chronic kidney disease stage 3: At baseline creatinine, may resume home medications including his torsemide. Avoid nephrotoxins. Renally dose all medications. 6. CAD: On chronic aspirin. 7. Reflux: On Protonix. 8. Hyperlipidemia: On atorvastatin. 9. BPH: On Flomax and Proscar. 10. Hypothyroidism: On Synthroid. 11. Disposition: Awaiting ARU Screen.
[2020-10-22 14:00] VITALS: BP 115/54
[2020-10-22] MEDS: cefTRIAXone SOD 2 GM in D5W MINI-BAG PLUS 50 ML IV SCH (20:16)
[2020-10-22] MEDS: PREGABALIN 75 MG CAP(LYRICA) PO SCH (20:16)
[2020-10-22 22:00] VITALS: BP 128/61
[2020-10-23] MEDS: LEVOTHYROXINE 112MCG TABLET (0.112MG) PO SCH (05:34)
[2020-10-23 06:00] VITALS: BP 116/57
[2020-10-23 07:04] LABS: HEMATOCRIT 28.9 % (42.0-52.0); HEMOGLOBIN 9.4 g/dl (13.5-17.5); MEAN CORPUSCULAR HEMOGLOBIN 29.6 pg (27.0-33.0); MEAN CORPUSCULAR HGB CONC 32.5 g/dl (32.0-36.5); MEAN CORPUSCULAR VOLUME 90.9 fl (80.0-96.0); PLATELET COUNT, AUTOMATED 164 10^3/uL (150-450); RED BLOOD COUNT 3.18 10^6/uL (4.30-6.10); WHITE BLOOD COUNT 7.3 10^3/uL (4.0-10.0)
[2020-10-23 07:24] LABS: CALCIUM LEVEL 8.6 MG/DL (8.8-10.2); CREATININE FOR GFR 1.27 MG/DL (0.70-1.30); GLOMERULAR FILTRATION RATE 57.1 (>35); MAGNESIUM LEVEL 1.9 MG/DL (1.8-2.4); POTASSIUM SERUM 3.5 MEQ/L (3.5-5.1)
[2020-10-23] MEDS: FERROUS GLUCONATE 324 MG TAB PO SCH (08:45)
[2020-10-23] MEDS: PANTOPRAZOLE 40MG TAB (PROTONIX) PO SCH (08:45)
[2020-10-23] MEDS: MULTIVITAMINS/MINERALS THERAP 1 TAB PO SCH (08:45)
[2020-10-23] MEDS: TORSEMIDE 10 MG TABLET PO SCH (08:45)
[2020-10-23] MEDS: TAMSULOSIN 0.4 MG CAP PO SCH (08:45)
[2020-10-23] MEDS: APIXABAN 2.5 MG TAB (ELIQUIS) PO SCH (08:45)
[2020-10-23] MEDS: DOCUSATE SODIUM 100MG CAPSULE PO SCH (08:45)
[2020-10-23] MEDS: FINASTERIDE 5 MG TAB PO SCH (08:45)
[2020-10-23] MEDS: ACETAMINOPHEN 500 MG TAB PO SCH (08:45)
[2020-10-23] MEDS: ATORVASTATIN 20 MG TAB PO SCH (08:45)
[2020-10-23] MEDS: AZITHROMYCIN 250MG TABLET PO SCH (08:45)
[2020-10-23] MEDS: ASPIRIN 81MG ENTERIC TABLET PO SCH (08:46)
[2020-10-23 11:42] VITALS: O2SAT 92
[2020-10-23] MEDS ORDERED: AZIT-12 PO (12:08)
[2020-10-23] MEDS ORDERED: CEFD300CAP PO (12:08)
--- NOTE | 2020-10-23 13:32 | DS.PDOC ---
Discharge Summary General Date of Admission Oct 19, 2020 at 21:32 Date of Discharge 10/23/2020 Discharge Summary PROCEDURES PERFORMED DURING STAY: [None]. ADMITTING DIAGNOSES / DISCHARGE DIAGNOSES: CAP Recurrent falls SSS / A. fib Diastolic congestive heart failure CKD3 CAD DLP Hypothyroidism BPH GERD DVT prophylaxis COMPLICATIONS/CHIEF COMPLAINT: Fall HISTORY OF PRESENT ILLNESS: Patient is a 68-year-old male with a PMHx of CAD s/p CABG, CHF, HTN, A. fib (on Eliquis), s/p PM, Severe spinal stenosis, Aspiration PNA, Bladder Ca s/p chemotherapy , who presented to the emergency department by his daughter after experiencing a fall. Patient was admitted to hospital service for further evaluation and treatment. Patient was subsequently experiencing a fever and imaging suggested a right lung infiltrate. She was seen and examined at the bedside. Currently denies any chest pain, shortness of breath, palpitations, but does report a mild cough. Denies any headache, nausea, vomiting, abdominal pain, constipation, or urinary discomfort. HOSPITAL COURSE: CAP - Patient reports a mild cough. Denies any significant shortness of breath - He remains hemodynamically stable and afebrile - Saturating well on room air - Leukocytosis has resolved - Blood cultures 10/19: No growth at 72 hours - c/w Cefdinir and Azithromycin for completion of antibiotic course - Will have outpatient follow-up with primary care provider within the Recurrent falls - possibly 2/2 spinal stenosis / deconditioning / debility / neuropathy - c/w Pregabalin - c/w PT and OT; patient will be transitioned to acute rehabilitation unit for additional physical therapy SSS / A. fib - Patient is currently not on any rate control medications - Patient has pacemaker placed that is set to a rate of 50 - Continue full anticoagulation with Eliquis Diastolic congestive heart failure - Appears to be compensated without any evidence of fluid overload - c/w Torsemide CKD3 - Cr appears to be at baseline CAD - c/w ASA, Atorvastatin DLP - c/w Atorvastatin Hypothyroidism - c/w Levothyroxine BPH - c/w Tamsulosin / Finasteride GERD - c/w Protonix DVT prophylaxis - c/w full anticoagulation with Eliquis DISCHARGE MEDICATIONS: Please see below. ALLERGIES: Please see below. PHYSICAL EXAMINATION ON DISCHARGE: Vitals (See below) General: Lying in bed, appears comfortable, AAOx3 HEENT: NC, AT CVS: RRR, +S1S2 Lungs: Fair air entry b/l, no visual wheezing, rales or rhonchi Abdomen: Soft, ND, NT Extremities: - Edema, - Calf tenderness LABORATORY DATA: Please see below. IMAGING: CT cervical spine 10/19: No acute fracture of the cervical spine. Minimal chronic appearing is cervical malalignments noted, likely degenerative. Severe degenerative changes are noted, most likely resulting in cord compromise. Findings discussed above in detail. Indeterminate pulmonary nodular opacity. Nonemergent recommendations discussed above. CXR 10/19: No acute findings. In general, a similar appearance was noted on 08/29/20. XR hand 10/19: No acute traumatic findings. Diffuse bony demineralization. Degenerative changes See additional comments above. CT head 10/19: Scalp soft tissue swelling. No acute intracranial hemorrhage or acute calvarial fracture. Age related involutional changes. Intracranial atherosclerosis and microvascular ischemic changes again noted. Findings discussed above in detail. CT chest 10/20: Streaky and patchy right lung opacities, compatible with infectious pneumonia. Areas of consolidation and/or atelectasis posterior and inferior to the right hilum. Right hilar adenopathy (probably inflammatory / reactive in nature). Some streaky parenchymal disease in the medial RUL and faintly in the DIAN, also. Minimal right pleural effusion. Cardiomegaly. Pacemaker electrodes in place. Infrarenal abdominal aortic graft (partially imaged). See additional comments above. CXR 10/22: Increasing moderate right lower lobe consolidation. Cannot exclude small associated effusion. Wrist XR 10/22: Advanced osteoarthritic degenerative changes bilaterally. Prior right wrist fixation. No acute fracture or dislocation. ACTIVITY: [As tolerated]. DISCHARGE PLAN: Follow-up with primary care provider within the next 7 days Remain compliant with treatment plan and medications Return to the ER if you experience any problems DISPOSITION: ARU DISCHARGE CONDITION: [Stable]. TIME SPENT ON DISCHARGE: 35 minutes. Vital Signs/I&Os Vital Signs Date Time Temp Pulse Resp B/P (MAP) Pulse Ox O2 Delivery O2 Flow Rate FiO2 10/23/20 11:42 92 Room Air 10/23/20 06:00 97.6 69 18 116/57 (76) I&O- Last 24 Hours up to 6 AM 10/23/20 06:00 Intake Total 2250 ml Output Total 900 ml Balance 1350 ml Laboratory Data Labs 24H Laboratory Tests 2 10/23/20 06:44: Nucleated Red Blood Cells % (auto) 0.0, Anion Gap 8, Glomerular Filtration Rate 57.1, Calcium Level 8.6L, Magnesium Level 1.9 CBC/BMP Laboratory Tests 10/23/20 06:44 Microbiology Microbiology 10/19/20 Blood Culture - Preliminary, Resulted No Growth after 72 hours. All specime... 10/19/20 Blood Culture - Preliminary, Resulted No Growth after 72 hours. All specime... Discharge Medications Scheduled Apixaban (Eliquis) 2.5 Mg Tablet, 2.5 MG PO BID, (Reported) Aspirin (Aspirin EC) 81 Mg Tablet.dr, 81 MG PO DAILY, (Reported) Atorvastatin Calcium (Atorvastatin Calcium) 20 Mg Tablet, 20 MG PO DAILY, (Reported) Azithromycin (Azithromycin) 250 Mg Tablet, 250 MG PO DAILY Cefdinir (Cefdinir) 300 Mg Capsule, 300 MG PO BID Ferrous Gluconate (Ferrous Gluconate) 324 Mg Tablet, 324 MG PO DAILY, (Reported) Finasteride (Finasteride) 5 Mg Tablet, 5 MG PO DAILY, (Reported) Fish Oil/Dha/Epa (Fish Oil 1,200 mg Fish Oil) 1 Each Capsule, 1 CAP PO BID, (Reported) Levothyroxine Sodium (Levothyroxine Sodium) 112 Mcg Tablet, 112 MCG PO DAILY, (Reported) Multivit-Min/FA/Lycopen/Lutein (Centrum Silver Tablet) 1 Each Tablet, 1 TAB PO DAILY, (Reported) Pantoprazole Sodium (Pantoprazole Sodium) 40 Mg Tablet.dr, 40 MG PO DAILY, (Reported) Pregabalin (Pregabalin) 75 Mg Capsule, 75 MG PO QHS, (Reported) Tamsulosin HCl (Flomax) 0.4 Mg Capsule, 0.4 MG PO DAILY, (Reported) Torsemide (Torsemide) 10 Mg Tablet, 10 MG PO DAILY, (Reported) Allergies Coded Allergies: No Known Allergies (Unverified , 12/29/19) JOAO CREWS MD Oct 23, 2020 13:32
[2020-10-23 14:00] VITALS: BP 152/76
[2020-10-23] MEDS ORDERED: CEFDINIR 300 MG CAP (OMNICEF) PO SCH (21:00)
== END 2020-10-23 16:35 | DRG 551 ==
LOC: M ED 21:31 → M ED INP 21:32 → ENRESERV 10-20 12:34 → M MSPAV 10-20 13:10
PROVIDERS: ADMIT Internal Medicine; ATTEND Internal Medicine
DX: M50.322 Other cervical disc degeneration at C5-C6 level (principal); J18.9 Pneumonia, unspecified organism; I50.32 Chronic diastolic (congestive) heart failure; I13.0 Hypertensive heart and chronic kidney disease with heart failure and stage 1 through stage 4 chronic kidney disease, or unspecified chronic kidney disease; I48.91 Unspecified atrial fibrillation; R00.1 Bradycardia, unspecified; M48.00 Spinal stenosis, site unspecified; N18.30 Chronic kidney disease, stage 3 unspecified; I25.10 Atherosclerotic heart disease of native coronary artery without angina pectoris; Z95.1 Presence of aortocoronary bypass graft; Z79.01 Long term (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 anticoagulants; Z85.51 Personal history of malignant neoplasm of bladder; Z92.21 Personal history of antineoplastic chemotherapy; N40.0 Benign prostatic hyperplasia without lower urinary tract symptoms; Z79.899 Other long term (current) drug therapy; Z79.82 Long term (current) use of aspirin; 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 cardiac pacemaker; Z98.41 Cataract extraction status, right eye; Z98.42 Cataract extraction status, left eye; K21.9 Gastro-esophageal reflux disease without esophagitis; E03.9 Hypothyroidism, unspecified; R29.6 Repeated falls; M50.323 Other cervical disc degeneration at C6-C7 level; M50.321 Other cervical disc degeneration at C4-C5 level

== ENCOUNTER 2020-10-23 13:33 | Inpatient (IN) | payer MEDICARE, BC ==
[~2020-10-23] VITALS: Ht 182.9 cm; Wt 90.5 kg
[~2020-10-23 13:33] MED LIST changes: +AZIT-12 PO; +CEFD300CAP PO; +FERR32TA PO; +TORS10TA3 PO
[2020-10-23] MEDS ORDERED: BISACODYL 10 MG SUPP PR PRN (16:30)
[2020-10-23] MEDS ORDERED: MIRALAX *UNIT DOSE* 17GM PACKET PO PRN (16:30)
--- NOTE | 2020-10-23 16:39 | HPEPDOC ---
[employer] Note DATE OF ADMISSION: 10-23-20 DATE OF SERVICE: 10-24-20 TIME OF ADMISSION: Please refer to physician's admission order. SOURCE OF ADMISSION INFORMATION:[facility] record and patient CHIEF COMPLAINT: weakness in setting of spinal stenosis and PNA HISTORY OF PRESENT ILLNESS: 85M pmh CAD s/p cabg, HTN, chronic diastolic CHF, CAD on ASA, BPH, afib with pacemaker (set to rate of 50 bpm) on eliquis, severe spinal stenosis, bladder cancer s/p chemo, multiple aspiration PNA who was falling at home and presented to [facility] ED on 10-20-20 with episodes of syncope. CTH was negative for intracranial hemorrhage, cervical spine CT showed, Severe degenerative changes are noted, most likely resulting in cord compromise, and CT chest did reveal right lung opacities consistent with pneumonia. Etiology of his falls was thought to be due to cervical stenosis with superimposed PNA for which he was started on IV antibiotics and transitioned to po Azithromycin and Cefdinir. He was noted to have mobility and ADL impairments below his baseline and deemed medically appropriate for discharge to ARU on 10-23-20. REVIEW OF SYSTEMS: The following is a completed review of systems and has been reviewed. Review of systems otherwise unremarkable. PAIN: Patient self reports no pain EYES: No recent vision changes EARS, NOSE, & THROAT: +mild dysphagia (chronic) CARDIOVASCULAR: Denies chest pain or palpitations PULMONARY: Denies shortness of breath GASTROINTESTINAL: Denies constipation/diarrhea GENITOURINARY: denies dysuria MUSCULOSKELETAL: generalized weakness NEUROLOGICAL:spinal stenosis with bilat foot drop and peripheral polyneuroapthy HEMATOLOGICAL: +easy bruising SKIN: +bilat feet ulcers PSYCHIATRIC: Unremarkable All other review of systems found to be negative. PAST MEDICAL HISTORY: as per HPI PAST SURGICAL HISTORY: Bilat cataract, pacemaker, CABG, AAA repair, TURP, spinal surgery, cholecystectomy ALLERGIES: Please see below. MEDICATIONS: Please see below. SOCIAL HISTORY: No etoh/illicit drugs/smoking DIET: low sodium PHYSICAL EXAMINATION: VITAL SIGNS: Please see below. GENERAL: Pleasant and cooperative. No acute distress. HEENT: PERRL. Extraocular movements intact. Clear conjunctiva CARDIOVASCULAR: Regular rate and rhythm. No murmurs, rubs, or gallops LUNGS: Clear to auscultation bilaterally. No wheezes. No rhonchi ABDOMEN: Soft, nontender, nondistended. Positive bowel sounds. Normal active bowel sounds NEUROLOGICAL: Alert and oriented times three. Cranial nerves II through XII grossly intact. Sensation diminished to light touch in stocking pattern EXTREMITIES: 4\5 strength bilateral upper extremities with interosseous wasting bilat 3+/5 bilat hip flexors, knee extensors, 2/5 ankle DF, 0/5 EHL bilat SKIN: bilat multiple blanchable erythematous areas on bony prominences of feet LABORATORY DATA: Please see below. IMAGING:Imaging documentation personally reviewed by record FUNCTIONAL STATUS: Premorbid: Mod-Independent with all activities of daily life as well as mobility On Admission: Min-Mod assist for bed mobility, functional transfers, dressing, toileting GOALS: Supervision for bed mobility, functional transfers, dressing, toileting, bathing ASSESSMENT:85-year-old M with past medical history of spinal stenosis, afib, multiple falls who presents status post worsening weakness found to have CAP and severe cervical stenosis PLAN: 1. 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 Neuro- severe cervical stenosis with peripheral polyneuropathy contributing to falls and overall weakness- rehab to help with strengthening- will refer to ortho spine on d/c to discuss surgical options 3. CArdiac- Afib with PM set at 50bpm- c/u eliquis -diastolic CHF c/u torsemide, daily weights, fluid restrict -CAD s/p CABG c/u ASA and statin -medicine consulted to assist in overall management -orthostatics as patient reporting he feels light headed with standing occasionally 4. Resp- recurrent PNA now being treated for CAP s/p ceftriaxone c/u azithromycin and cefdinir- combivent and guaifenesin -will order magic mouth wash for concern for possible aspirations, HOB 30 degreed -STREET ENGINEER eval for dysphagia work-up 5. GI ppx- protonix 6. DVT ppx on eliquis 7. Endo- hypothryoidism c/u synthroid 8. Pain- tylenol and lyrica for neuropathy 9. - hx of bph c/o Flomax and Proscar, monitor PVRs -hx of bladder cancer s/p chemo 10. Skin- AFOs/shoes to be worn in therapy only, wound care instructions per nursing orders 10=1. Dispo- TBD POST ADMISSION PHYSICIAN EVALUATION: Medical and functional status: Description of medical status, medical assessment: As above. Rehabilitation diagnosis and current and prior cold morbid medical conditions as above. Risk of complications and plans to mitigate them as above. Description of functional status current status is as above. Prior status as above. Status compared to preadmission: There are no clinically significant differences between the patient's current status and the information described on the preadmission screening document. Treatment plan anticipated: Treatment plan is as described above. Required disciplines including physical therapy, occupational therapy, others as noted above. Intensity of services: 3 hours a day, 6 days a week. Special considerations: There are no specific special or safety considerations that would likely preclude immediate implementation of an intensive rehabilitation program or subsequently influence the plan of care. ATTESTATION: Considering all the information above, it is my best judgment that this patient requires intensive rehabilitation therapy as described above and an inpatient hospital environment due to the complexity of nursing, medical, and rehabilitation needs required by the patient. Furthermore, this patient can reasonably be expected to participate in an benefit from an inpatient rehabilitation stay with an interdisciplinary team approach to the delivery of rehabilitation care under the direction and supervision of rehabilitation physician. PROGNOSIS: good ESTIMATED LENGTH OF STAY:18-21 days. PROJECTED DISCHARGE DESTINATION: Home with family support and any durable medical equipment required to increase functional safety and mobility TIME SPENT COUNSELING AND COORDINATING INITIAL CARE: Greater than 70 minutes. Vital Signs Vital Signs Date Time Temp Pulse Resp B/P (MAP) Pulse Ox O2 Delivery O2 Flow Rate FiO2 10/23/20 16:45 96.8 57 18 126/70 (88) 99 Room Air Home Medications Scheduled Apixaban (Eliquis) 2.5 Mg Tablet, 2.5 MG PO BID, (Reported) Aspirin (Aspirin EC) 81 Mg Tablet.dr, 81 MG PO DAILY, (Reported) Atorvastatin Calcium (Atorvastatin Calcium) 20 Mg Tablet, 20 MG PO DAILY, (Reported) Azithromycin (Azithromycin) 250 Mg Tablet, 250 MG PO DAILY Cefdinir (Cefdinir) 300 Mg Capsule, 300 MG PO BID Ferrous Gluconate (Ferrous Gluconate) 324 Mg Tablet, 324 MG PO DAILY, (Reported) Finasteride (Finasteride) 5 Mg Tablet, 5 MG PO DAILY, (Reported) Fish Oil/Dha/Epa (Fish Oil 1,200 mg Fish Oil) 1 Each Capsule, 1 CAP PO BID, (Reported) Levothyroxine Sodium (Levothyroxine Sodium) 112 Mcg Tablet, 112 MCG PO DAILY, (Reported) Multivit-Min/FA/Lycopen/Lutein (Centrum Silver Tablet) 1 Each Tablet, 1 TAB PO DAILY, (Reported) Pantoprazole Sodium (Pantoprazole Sodium) 40 Mg Tablet.dr, 40 MG PO DAILY, (Reported) Pregabalin (Pregabalin) 75 Mg Capsule, 75 MG PO QHS, (Reported) Tamsulosin HCl (Flomax) 0.4 Mg Capsule, 0.4 MG PO DAILY, (Reported) Torsemide (Torsemide) 10 Mg Tablet, 10 MG PO DAILY, (Reported) Allergies Coded Allergies: No Known Allergies (Unverified , 12/29/19) A-FIB/CHADSVASC A-FIB History Current/History of A-Fib/PAF?: Yes Current PO Anticoag Therapy: Yes DERIK MONREAL MD Oct 23, 2020 16:39
[2020-10-23 16:45] VITALS: BP 126/70
[2020-10-23 19:58] VITALS: BP 148/60
[2020-10-23] MEDS: RAMELTEON 8 MG TAB (ROZEREM) PO PRN (20:14)
[2020-10-23] MEDS: SENNA 8.6 MG TAB (SENOKOT) PO SCH (20:14)
[2020-10-23] MEDS: CEFDINIR 300 MG CAP (OMNICEF) PO SCH (20:14)
[2020-10-23] MEDS: PREGABALIN 75 MG CAP(LYRICA) PO SCH (20:14)
[2020-10-23] MEDS: APIXABAN 2.5 MG TAB (ELIQUIS) PO SCH (20:14)
[2020-10-23] MEDS: DOCUSATE SODIUM 100MG CAPSULE PO SCH (20:14)
[2020-10-23] MEDS: LACTOBACILLUS ACIDOPHILUS CAP (BACID) PO SCH (20:14)
[2020-10-23] MEDS: ACETAMINOPHEN TAB 650MG DOSE (2X325MG) PO PRN (20:15)
[2020-10-23] MEDS: REMEDY PHYTOPLEX Z-GUARD PASTE 113GM TUBE (FROM STOREROOM PRODUCT) TOP SCH (20:15)
[2020-10-24 04:00] VITALS: BP 156/70
[2020-10-24] MEDS: LEVOTHYROXINE 112MCG TABLET (0.112MG) PO SCH (05:56)
[2020-10-24 07:41] LABS: BASO % 0.6 % (0.0-1.0); EOS # 0.5 10^3/uL (0.0-0.5); EOS % 6.9 % (0.0-3.0); HEMOGLOBIN 9.9 g/dl (13.5-17.5); LYMPH # 0.8 10^3/uL (1.5-5.0); MEAN CORPUSCULAR HEMOGLOBIN 30.3 pg (27.0-33.0); MEAN CORPUSCULAR VOLUME 91.7 fl (80.0-96.0); MONO # 0.5 10^3/uL (0.0-0.8); MONO % 7.2 % (2.0-8.0); NEUTROPHILS % 72.7 % (36.0-66.0); PLATELET COUNT, AUTOMATED 194 10^3/uL (150-450); RED BLOOD COUNT 3.27 10^6/uL (4.30-6.10); WHITE BLOOD COUNT 6.9 10^3/uL (4.0-10.0)
[2020-10-24 08:04] LABS: ALBUMIN 2.5 GM/DL (3.2-5.2); ALT/SGPT 34 U/L (12-78); BILIRUBIN,TOTAL 0.6 MG/DL (0.2-1.0); BLOOD UREA NITROGEN 30 MG/DL (7-18); CALCIUM LEVEL 8.7 MG/DL (8.8-10.2); CARBON DIOXIDE LEVEL 26 MEQ/L (21-32); CHLORIDE LEVEL 106 MEQ/L (98-107); CREATININE FOR GFR 1.02 MG/DL (0.70-1.30); GLOMERULAR FILTRATION RATE > 60.0 (>35); GLUCOSE, FASTING 131 MG/DL (70-100); POTASSIUM SERUM 3.7 MEQ/L (3.5-5.1); SODIUM LEVEL 141 MEQ/L (136-145); TOTAL PROTEIN 6.8 GM/DL (6.4-8.2)
[2020-10-24] MEDS: PANTOPRAZOLE 40MG TAB (PROTONIX) PO SCH (08:34)
[2020-10-24] MEDS: AZITHROMYCIN 250MG TABLET PO SCH (08:34)
[2020-10-24] MEDS: FERROUS GLUCONATE 324 MG TAB PO SCH (08:34)
[2020-10-24] MEDS: TAMSULOSIN 0.4 MG CAP PO SCH (08:34)
[2020-10-24] MEDS: LACTOBACILLUS ACIDOPHILUS CAP (BACID) PO SCH ×3 (08:34→21:55)
[2020-10-24] MEDS: DOCUSATE SODIUM 100MG CAPSULE PO SCH ×2 (08:34→21:55)
[2020-10-24] MEDS: ATORVASTATIN 20 MG TAB PO SCH (08:34)
[2020-10-24] MEDS: CEFDINIR 300 MG CAP (OMNICEF) PO SCH ×2 (08:35→21:55)
[2020-10-24] MEDS: TORSEMIDE 10 MG TABLET PO SCH (08:35)
[2020-10-24] MEDS: FINASTERIDE 5 MG TAB PO SCH (08:35)
[2020-10-24] MEDS: APIXABAN 2.5 MG TAB (ELIQUIS) PO SCH ×2 (08:35→21:54)
[2020-10-24] MEDS: MULTIVITAMINS/MINERALS THERAP 1 TAB PO SCH (08:35)
[2020-10-24] MEDS: REMEDY PHYTOPLEX Z-GUARD PASTE 113GM TUBE (FROM STOREROOM PRODUCT) TOP SCH ×3 (08:36→21:56)
[2020-10-24] MEDS: ASPIRIN 81MG ENTERIC TABLET PO SCH (08:39)
--- NOTE | 2020-10-24 11:19 | IPNPDOC ---
Text Note Date of Service The patient was seen on 10/24/20. NOTE Subjective: Patient is a 68-year-old male with a PMHx of CAD s/p CABG, CHF, HTN, A. fib (on Eliquis), s/p PM, Severe spinal stenosis, Aspiration PNA, Bladder Ca s/p chemotherapy, who presented to the ER, brought in by his daughter after experiencing a fall. Patient was admitted to hospital service for further evaluation and treatment. Patient was subsequently experiencing a fever and imaging suggested a right lung infiltrate. Patient was ultimately transitioned to acute rehabilitation unit on 10/23. Patient was seen and examined at the bedside. Currently he denies any chest pain, short of breath. Reports a mild cough. Denies any nausea, vomiting, abdominal pain, diarrhea, or urinary discomfort. He'll continue to work with physical therapy today. Objective: Vitals (See below) General: Lying in bed, appears comfortable, AAOx3 HEENT: NC, AT CVS: +S1S2 Lungs: Fair air entry b/l, significant wheezing, rales or rhonchi Abdomen: Soft, nondistended and nontender Extremities: Lower extremities do not reveal any significant edema Imaging: CT cervical spine 10/19: No acute fracture of the cervical spine. Minimal chronic appearing is cervical malalignments noted, likely degenerative. Severe degenerative changes are noted, most likely resulting in cord compromise. Findings discussed above in detail. Indeterminate pulmonary nodular opacity. Nonemergent recommendations discussed above. CXR 10/19: No acute findings. In general, a similar appearance was noted on 08/29/20. XR hand 10/19: No acute traumatic findings. Diffuse bony demineralization. Degenerative changes See additional comments above. CT head 10/19: Scalp soft tissue swelling. No acute intracranial hemorrhage or acute calvarial fracture. Age related involutional changes. Intracranial atherosclerosis and microvascular ischemic changes again noted. Findings discussed above in detail. CT chest 10/20: Streaky and patchy right lung opacities, compatible with infectious pneumonia. Areas of consolidation and/or atelectasis posterior and inferior to the right hilum. Right hilar adenopathy (probably inflammatory / reactive in nature). Some streaky parenchymal disease in the medial RUL and faintly in the DIAN, also. Minimal right pleural effusion. Cardiomegaly. Pacemaker electrodes in place. Infrarenal abdominal aortic graft (partially imaged). See additional comments above. CXR 10/22: Increasing moderate right lower lobe consolidation. Cannot exclude small associated effusion. Wrist XR 10/22: Advanced osteoarthritic degenerative changes bilaterally. Prior right wrist fixation. No acute fracture or dislocation. Assessment and plan: To me acquired pneumonia - Denies any sureness of breath, chest pain or palpitations, but does report a mild cough - Hemodynamically stable and afebrile - Has been saturating well on room air- Leukocytosis has resolved - s/p Leukocytoids - Blood cultures 10/19: No growth at 72 hours - c/w Cefdinir and Azithromycin for completion of antibiotic course Recurrent falls - possibly 2/2 spinal stenosis / deconditioning / debility / neuropathy - c/w Pregabalin - c/w PT and OT as per ARU SSS / A. fib - Patient is currently not on any rate control medications - Patient has pacemaker placed that is set to a rate of 50 - c/w full anticoagulation with Eliquis Diastolic congestive heart failure - No evidence of fluid overload, appears to be euvolemic - c/w Torsemide CKD3 - Cr appears to be at baseline CAD - c/w ASA, Atorvastatin DLP - c/w Atorvastatin Hypothyroidism - c/w Levothyroxine BPH - c/w Tamsulosin / Finasteride GERD - c/w Protonix DVT prophylaxis - c/w full anticoagulation with Eliquis Disposition: - As per ARU VS,Agnes, I+O VSAgnes, I+O Laboratory Tests 10/24/20 07:06 Vital Signs Date Time Temp Pulse Resp B/P (MAP) Pulse Ox O2 Delivery O2 Flow Rate FiO2 10/24/20 04:00 97.9 50 17 156/70 (98) 96 Room Air I&O- Last 24 Hours up to 6 AM 10/24/20 05:59 Intake Total 300 ml Output Total 1350 ml Balance -1050 ml JOAO CREWS MD Oct 24, 2020 11:19
[2020-10-24] MEDS: guaiFENesin 200 MG TAB PO SCH ×3 (12:24→21:55)
[2020-10-24] MEDS: MAGIC MOUTHWASH SUSPENSION BTL SSP SCH ×2 (12:24→16:52)
[2020-10-24 14:00] VITALS: BP_SYST 140; BP_SYST 146; BP_SYST 174; BP_DIAS 64; BP_DIAS 67; BP_DIAS 79
[2020-10-24] MEDS: COMBIVENT RESPIMAT 100-20MCG INHALER 4GM INH SCH ×2 (14:00→20:00)
[2020-10-24] MEDS: MAGNESIUM SULFATE GRANULES(EPSOM SALT) 1LB TOP SCH (16:52)
[2020-10-24 20:00] VITALS: BP 162/71
[2020-10-24] MEDS: SENNA 8.6 MG TAB (SENOKOT) PO SCH (21:54)
[2020-10-24] MEDS: PREGABALIN 75 MG CAP(LYRICA) PO SCH (21:55)
[2020-10-24] MEDS: RAMELTEON 8 MG TAB (ROZEREM) PO PRN (21:55)
[2020-10-24] MEDS: ACETAMINOPHEN TAB 650MG DOSE (2X325MG) PO PRN (21:56)
[2020-10-25] MEDS: LEVOTHYROXINE 112MCG TABLET (0.112MG) PO SCH (05:45)
[2020-10-25 06:00] VITALS: BP_SYST 135; BP_SYST 136; BP_SYST 161; BP_DIAS 50; BP_DIAS 62; BP_DIAS 74
[2020-10-25] MEDS: COMBIVENT RESPIMAT 100-20MCG INHALER 4GM INH SCH ×3 (08:00→19:20)
[2020-10-25] MEDS: AZITHROMYCIN 250MG TABLET PO SCH (08:04)
[2020-10-25] MEDS: guaiFENesin 200 MG TAB PO SCH ×3 (08:04→20:59)
[2020-10-25] MEDS: DOCUSATE SODIUM 100MG CAPSULE PO SCH ×2 (08:04→20:59)
[2020-10-25] MEDS: ATORVASTATIN 20 MG TAB PO SCH (08:04)
[2020-10-25] MEDS: FERROUS GLUCONATE 324 MG TAB PO SCH (08:04)
[2020-10-25] MEDS: LACTOBACILLUS ACIDOPHILUS CAP (BACID) PO SCH ×3 (08:05→20:59)
[2020-10-25] MEDS: FINASTERIDE 5 MG TAB PO SCH (08:05)
[2020-10-25] MEDS: CEFDINIR 300 MG CAP (OMNICEF) PO SCH ×2 (08:05→20:59)
[2020-10-25] MEDS: MAGIC MOUTHWASH SUSPENSION BTL SSP SCH ×3 (08:05→17:06)
[2020-10-25] MEDS: ASPIRIN 81MG ENTERIC TABLET PO SCH (08:05)
[2020-10-25] MEDS: APIXABAN 2.5 MG TAB (ELIQUIS) PO SCH ×2 (08:05→20:59)
[2020-10-25] MEDS: MULTIVITAMINS/MINERALS THERAP 1 TAB PO SCH (08:08)
[2020-10-25] MEDS: TORSEMIDE 10 MG TABLET PO SCH (08:08)
[2020-10-25] MEDS: PANTOPRAZOLE 40MG TAB (PROTONIX) PO SCH (08:08)
[2020-10-25] MEDS: TAMSULOSIN 0.4 MG CAP PO SCH (08:10)
[2020-10-25] MEDS: REMEDY PHYTOPLEX Z-GUARD PASTE 113GM TUBE (FROM STOREROOM PRODUCT) TOP SCH ×3 (09:00→20:59)
--- NOTE | 2020-10-25 10:57 | IPNPDOC ---
PM&R Progress Note DATE OF SERVICE: Oct 25, 2020 Spa Receptionist Progress Note Subjective: Patient stating he feels his voice is less wet since being downgraded to level 2 diet. He continues to feel weak, but thinks he is getting a little stronger. REVIEW OF SYSTEMS: The following is a completed review of systems and has been reviewed. Review of systems otherwise unremarkable. PAIN: Patient self reports no pain EYES: No recent vision changes EARS, NOSE, & THROAT: +mild dysphagia (chronic) CARDIOVASCULAR: Denies chest pain or palpitations PULMONARY: Denies shortness of breath GASTROINTESTINAL: Denies constipation/diarrhea GENITOURINARY: denies dysuria MUSCULOSKELETAL: generalized weakness NEUROLOGICAL:spinal stenosis with bilat foot drop and peripheral polyneuropathy HEMATOLOGICAL: +easy bruising SKIN: +bilat feet ulcers PSYCHIATRIC: Unremarkable All other review of systems found to be negative. PHYSICAL EXAMINATION: VITAL SIGNS: Please see below. GENERAL: Pleasant and cooperative. No acute distress. HEENT: PERRL. Extraocular movements intact. Clear conjunctiva CARDIOVASCULAR: Regular rate and rhythm. No murmurs, rubs, or gallops LUNGS: Clear to auscultation bilaterally. No wheezes. No rhonchi ABDOMEN: Soft, nontender, nondistended. Positive bowel sounds. Normal active bowel sounds NEUROLOGICAL: Alert and oriented times three. Cranial nerves II through XII grossly intact. Sensation diminished to light touch in stocking pattern EXTREMITIES: 4\5 strength bilateral upper extremities with interosseous wasting bilat 3+/5 bilat hip flexors, knee extensors, 2/5 ankle DF, 0/5 EHL bilat SKIN: bilat multiple blanchable erythematous areas on bony prominences of feet GOALS: Supervision for bed mobility, functional transfers, dressing, toileting, bathing ASSESSMENT:85-year-old M with past medical history of spinal stenosis, afib, mul tiple falls who presents status post worsening weakness found to have CAP and severe cervical stenosis PLAN: 1. 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 Neuro- severe cervical stenosis with peripheral polyneuropathy contributing to falls and overall weakness- rehab to help with strengthening- will refer to ortho spine on d/c to discuss surgical options 3. CArdiac- Afib with PM set at 50bpm- c/u eliquis -diastolic CHF c/u torsemide, daily weights, fluid restrict -CAD s/p CABG c/u ASA and statin -medicine consulted to assist in overall management -orthostatics as patient reporting he feels light headed with standing occasionally 4. Resp- recurrent PNA now being treated for CAP s/p ceftriaxone c/u azithromycin and cefdinir- combivent and guaifenesin -will order magic mouth wash for concern for possible aspirations, HOB 30 degreed -TWO WAY RADIO TECHNICIAN eval for dysphagia work-up 5. GI ppx- protonix 6. DVT ppx on eliquis 7. Endo- hypothryoidism c/u synthroid 8. Pain- tylenol and lyrica for neuropathy 9. - hx of bph c/o Flomax and Proscar, monitor PVRs -hx of bladder cancer s/p chemo 10. Skin- AFOs/shoes to be worn in therapy only, wound care instructions per nursing orders 11. Dispo- TBD Allergies Coded Allergies: No Known Allergies (Unverified , 12/29/19) Vital Signs Vital Signs Date Time Temp Pulse Resp B/P (MAP) Pulse Ox O2 Delivery O2 Flow Rate FiO2 10/25/20 06:00 97.0 68 18 136/62 (86) 96 Room Air Current Medications Current Medications Current Medications Medications (Trade) Dose Ordered Sig/Gunner Route PRN Reason Start Time Stop Time Status Last Admin Dose Admin Acetaminophen (Tylenol Tab) 650 mg Q4HP PRN PO fever/MILD PAIN (PS 1-4) 10/23/20 16:30 10/24/20 21:56 Albuterol/ Ipratropium (Combivent Respimat 100-20mcg) 1 puff RTID INH 10/24/20 14:00 Apixaban (Eliquis) 2.5 mg BID PO 10/23/20 21:00 10/25/20 08:05 Aspirin (Ecotrin) 81 mg DAILY PO 10/24/20 09:00 10/25/20 08:05 Atorvastatin Calcium (Lipitor) 20 mg DAILY PO 10/24/20 09:00 10/25/20 08:04 Azithromycin (Zithromax Tab) 250 mg DAILY PO 10/24/20 09:00 10/30/20 09:01 10/25/20 08:04 Bisacodyl (Dulcolax Suppository) 10 mg DAILYPRN PRN [place] CONSTIPATION 10/23/20 16:30 Cefdinir (Omnicef) 300 mg BID PO 10/23/20 21:00 10/30/20 09:01 10/25/20 08:05 Docusate Sodium (Colace) 100 mg BID PO 10/23/20 21:00 10/25/20 08:04 Ferrous Gluconate (Fergon) 324 mg DAILY PO 10/24/20 09:00 10/25/20 08:04 Finasteride (Proscar) 5 mg DAILY PO 10/24/20 09:00 10/25/20 08:05 Guaifenesin (Robitussin Tab) 400 mg TID PO 10/24/20 09:00 10/25/20 08:04 Lactobacillus Acidophilus (Bacid) 1 ea TID PO 10/23/20 21:00 10/25/20 08:05 Levothyroxine Sodium (Synthroid) 112 mcg DAILY@06 PO 10/24/20 06:00 10/25/20 05:45 Lidocaine/ Diphenhydr/Alum/ Mg/Simeth (Magic Mouthwash) 5ML AC SSP 10/24/20 12:00 10/25/20 08:05 Magnesium Sulfate (Epsom Salt) soak bilat feet for 15 bernabe... Q3D TOP 10/24/20 17:00 10/24/20 16:52 Multivitamins (Theragram-M) 1 tab DAILY PO 10/24/20 09:00 10/25/20 08:08 Pantoprazole Sodium (Protonix) 40 mg DAILY PO 10/24/20 09:00 10/25/20 08:08 Polyethylene Glycol (Miralax) 1 pkt DAILY PRN PO CONSTIPATION 10/23/20 16:30 Pregabalin (Lyrica) 75 mg QHS PO 10/23/20 21:00 10/24/20 21:55 Ramelteon (Rozerem) 8 mg QHS PRN PO INSOMNIA 10/23/20 16:30 10/24/20 21:55 Senna (Senokot) 1 tab QHS PO 10/23/20 21:00 10/24/20 21:54 Tamsulosin HCl (Flomax) 0.4 mg DAILY PO 10/24/20 09:00 10/25/20 08:10 Torsemide (Demadex) 10 mg DAILY PO 10/24/20 09:00 10/25/20 08:08 DERIK MONREAL MD Oct 25, 2020 10:57
[2020-10-25 14:41] VITALS: BP 140/90
[2020-10-25 20:00] VITALS: BP 148/68
[2020-10-25] MEDS: PREGABALIN 75 MG CAP(LYRICA) PO SCH (20:59)
[2020-10-25] MEDS: SENNA 8.6 MG TAB (SENOKOT) PO SCH (20:59)
[2020-10-26] MEDS: LEVOTHYROXINE 112MCG TABLET (0.112MG) PO SCH (05:38)
[2020-10-26 06:00] VITALS: BP 139/68
[2020-10-26] MEDS: COMBIVENT RESPIMAT 100-20MCG INHALER 4GM INH SCH ×3 (07:12→20:30)
[2020-10-26 07:16] LABS: BASO # 0.1 10^3/uL (0.0-0.2); BASO % 0.6 % (0.0-1.0); EOS # 0.4 10^3/uL (0.0-0.5); EOS % 5.4 % (0.0-3.0); HEMATOCRIT 31.9 % (42.0-52.0); HEMOGLOBIN 10.1 g/dl (13.5-17.5); LYMPH # 1.3 10^3/uL (1.5-5.0); LYMPH % 17.3 % (24.0-44.0); MEAN CORPUSCULAR HEMOGLOBIN 29.2 pg (27.0-33.0); MEAN CORPUSCULAR HGB CONC 31.7 g/dl (32.0-36.5); MEAN CORPUSCULAR VOLUME 92.2 fl (80.0-96.0); MONO # 0.7 10^3/uL (0.0-0.8); MONO % 8.9 % (2.0-8.0); NEUTROPHILS # 5.2 10^3/uL (1.5-8.5); NEUTROPHILS % 66.8 % (36.0-66.0); PLATELET COUNT, AUTOMATED 226 10^3/uL (150-450); RED BLOOD COUNT 3.46 10^6/uL (4.30-6.10); WHITE BLOOD COUNT 7.8 10^3/uL (4.0-10.0)
[2020-10-26 07:36] LABS: BLOOD UREA NITROGEN 22 MG/DL (7-18); CALCIUM LEVEL 8.9 MG/DL (8.8-10.2); CARBON DIOXIDE LEVEL 29 MEQ/L (21-32); CHLORIDE LEVEL 107 MEQ/L (98-107); CREATININE FOR GFR 0.81 MG/DL (0.70-1.30); GLOMERULAR FILTRATION RATE > 60.0 (>35); GLUCOSE, FASTING 132 MG/DL (70-100); POTASSIUM SERUM 3.7 MEQ/L (3.5-5.1); SODIUM LEVEL 141 MEQ/L (136-145)
[2020-10-26] MEDS ORDERED: OXYMETAZOLINE 0.05% NASAL SPRAY (AFRIN) PRN (09:00)
[2020-10-26] MEDS: MAGIC MOUTHWASH SUSPENSION BTL SSP SCH ×3 (09:32→17:44)
[2020-10-26] MEDS: ASPIRIN 81MG ENTERIC TABLET PO SCH (09:33)
[2020-10-26] MEDS: TORSEMIDE 10 MG TABLET PO SCH (09:33)
[2020-10-26] MEDS: CEFDINIR 300 MG CAP (OMNICEF) PO SCH ×2 (09:33→20:36)
[2020-10-26] MEDS: AZITHROMYCIN 250MG TABLET PO SCH (09:33)
[2020-10-26] MEDS: APIXABAN 2.5 MG TAB (ELIQUIS) PO SCH ×2 (09:33→20:36)
[2020-10-26] MEDS: PANTOPRAZOLE 40MG TAB (PROTONIX) PO SCH (09:33)
[2020-10-26] MEDS: TAMSULOSIN 0.4 MG CAP PO SCH (09:33)
[2020-10-26] MEDS: LACTOBACILLUS ACIDOPHILUS CAP (BACID) PO SCH ×3 (09:33→20:36)
[2020-10-26] MEDS: FERROUS GLUCONATE 324 MG TAB PO SCH (09:33)
[2020-10-26] MEDS: guaiFENesin 200 MG TAB PO SCH ×3 (09:34→20:36)
[2020-10-26] MEDS: DOCUSATE SODIUM 100MG CAPSULE PO SCH ×2 (09:34→20:36)
[2020-10-26] MEDS: ATORVASTATIN 20 MG TAB PO SCH (09:34)
[2020-10-26] MEDS: FINASTERIDE 5 MG TAB PO SCH (09:34)
[2020-10-26] MEDS: REMEDY PHYTOPLEX Z-GUARD PASTE 113GM TUBE (FROM STOREROOM PRODUCT) TOP SCH ×3 (09:34→20:36)
[2020-10-26] MEDS: MULTIVITAMINS/MINERALS THERAP 1 TAB PO SCH (09:34)
[2020-10-26] MEDS ORDERED: MAALOX 30 ML SUSP *UDC PO PRN (11:05)
--- NOTE | 2020-10-26 11:20 | IPNPDOC ---
PM&R Progress Note DATE OF SERVICE: Oct 26, 2020 Meat Passer Progress Note Subjective: Discussed FEES findings with patient who admits he often feels congestion in his sinuses and is agreeable to trial of claritin and flonase to see if this dries him and helps with his swallowing. REVIEW OF SYSTEMS: The following is a completed review of systems and has been reviewed. Review of systems otherwise unremarkable. PAIN: Patient self reports no pain EYES: No recent vision changes EARS, NOSE, & THROAT: +mild dysphagia (chronic) CARDIOVASCULAR: Denies chest pain or palpitations PULMONARY: Denies shortness of breath GASTROINTESTINAL: Denies constipation/diarrhea GENITOURINARY: denies dysuria MUSCULOSKELETAL: generalized weakness NEUROLOGICAL:spinal stenosis with bilat foot drop and peripheral polyneuropathy HEMATOLOGICAL: +easy bruising SKIN: +bilat feet ulcers PSYCHIATRIC: Unremarkable All other review of systems found to be negative. PHYSICAL EXAMINATION: VITAL SIGNS: Please see below. GENERAL: Pleasant and cooperative. No acute distress. HEENT: PERRL. Extraocular movements intact. Clear conjunctiva CARDIOVASCULAR: Regular rate and rhythm. No murmurs, rubs, or gallops LUNGS: Clear to auscultation bilaterally. No wheezes. No rhonchi ABDOMEN: Soft, nontender, nondistended. Positive bowel sounds. Normal active bowel sounds NEUROLOGICAL: Alert and oriented times three. Cranial nerves II through XII grossly intact. Sensation diminished to light touch in stocking pattern EXTREMITIES: 4\5 strength bilateral upper extremities with interosseous wasting bilat 3+/5 bilat hip flexors, knee extensors, 2/5 ankle DF, 0/5 EHL bilat SKIN: bilat multiple blanchable erythematous areas on bony prominences of feet GOALS: Supervision for bed mobility, functional transfers, dressing, toileting, bathing ASSESSMENT:85-year-old M with past medical history of spinal stenosis, afib, multiple falls who presents status post worsening weakness found to have CAP and severe cervical stenosis PLAN: 1. Rehab- PT/OT advance mobiltiy and ADLs, strengthen.stretch.maintain ROM all 4 limbs, balance training -SEMI DRIVER for recurrent aspiration PNA to r/o dysphagia- down graded to level 2, FEES ordered for today 2. Neuro- severe cervical stenosis with peripheral polyneuropathy contributing to falls and overall weakness- rehab to help with strengthening- will refer to ortho spine on d/c to discuss surgical options 3. CArdiac- Afib with PM set at 50bpm- c/u eliquis -diastolic CHF c/u torsemide, daily weights, fluid restrict -CAD s/p CABG c/u ASA and statin -medicine consulted to assist in overall management 4. Resp- recurrent PNA now being treated for CAP s/p ceftriaxone c/u azithromycin and cefdinir- combivent and guaifenesin -c/u magic mouth wash for concern for possible aspirations, HOB 30 degreed, claritin flonase and nasal saline to dry up sinuses, will either consult ENT or refer as outpatient -SEMI DRIVER eval for dysphagia work-up 5. GI ppx- protonix 6. DVT ppx on eliquis 7. Endo- hypothryoidism c/u synthroid 8. Pain- tylenol and lyrica for neuropathy 9. - hx of bph c/o Flomax and Proscar, monitor PVRs -hx of bladder cancer s/p chemo 10. Skin- AFOs/shoes to be worn in therapy only, wound care instructions per nursing orders 11. Dispo- TBD Allergies Coded Allergies: No Known Allergies (Unverified , 12/29/19) Vital Signs Vital Signs Date Time Temp Pulse Resp B/P (MAP) Pulse Ox O2 Delivery O2 Flow Rate FiO2 10/26/20 06:00 98.5 77 18 139/68 (91) 93 Room Air Laboratory Data CBC/BMP Laboratory Tests 10/26/20 07:00 Labs 24H Laboratory Tests 2 10/26/20 07:00: Immature Granulocyte % (Auto) 1.0, Neutrophils (%) (Auto) 66.8H, Lymphocytes (%) (Auto) 17.3L, Monocytes (%) (Auto) 8.9H, Eosinophils (%) (Auto) 5.4H, Basophils (%) (Auto) 0.6, Neutrophils # (Auto) 5.2, Lymphocytes # (Auto) 1.3L, Monocytes # (Auto) 0.7, Eosinophils # (Auto) 0.4, Basophils # (Auto) 0.1, Nucleated Red Blood Cells % (auto) 0.0, Anion Gap 5L, Glomerular Filtration Rate > 60.0, Calcium Level 8.9 Current Medications Current Medications Current Medications Medications (Trade) Dose Ordered Sig/Gunner Route PRN Reason Start Time Stop Time Status Last Admin Dose Admin Acetaminophen (Tylenol Tab) 650 mg Q4HP PRN PO fever/MILD PAIN (PS 1-4) 10/23/20 16:30 10/24/20 21:56 Albuterol/ Ipratropium (Combivent Respimat 100-20mcg) 1 puff RTID INH 10/24/20 14:00 10/26/20 07:12 Apixaban (Eliquis) 2.5 mg BID PO 10/23/20 21:00 10/26/20 09:33 Aspirin (Ecotrin) 81 mg DAILY PO 10/24/20 09:00 10/26/20 09:33 Atorvastatin Calcium (Lipitor) 20 mg DAILY PO 10/24/20 09:00 10/26/20 09:34 Azithromycin (Zithromax Tab) 250 mg DAILY PO 10/24/20 09:00 10/30/20 09:01 10/26/20 09:33 Bisacodyl (Dulcolax Suppository) 10 mg DAILYPRN PRN ID CONSTIPATION 10/23/20 16:30 Cefdinir (Omnicef) 300 mg BID PO 10/23/20 21:00 10/30/20 09:01 10/26/20 09:33 Docusate Sodium (Colace) 100 mg BID PO 10/23/20 21:00 10/26/20 09:34 Ferrous Gluconate (Fergon) 324 mg DAILY PO 10/24/20 09:00 10/26/20 09:33 Finasteride (Proscar) 5 mg DAILY PO 10/24/20 09:00 10/26/20 09:34 Guaifenesin (Robitussin Tab) 400 mg TID PO 10/24/20 09:00 10/26/20 09:34 Lactobacillus Acidophilus (Bacid) 1 ea TID PO 10/23/20 21:00 10/26/20 09:33 Levothyroxine Sodium (Synthroid) 112 mcg DAILY@06 PO 10/24/20 06:00 10/26/20 05:38 Lidocaine/ Diphenhydr/Alum/ Mg/Simeth (Magic Mouthwash) 5ML AC SSP 10/24/20 12:00 10/26/20 09:32 Magnesium Sulfate (Epsom Salt) soak bilat feet for 15 bernabe... Q3D TOP 7/14/21 17:00 10/24/20 16:52 Multivitamins (Theragram-M) 1 tab DAILY PO 10/24/20 09:00 10/26/20 09:34 Oxymetazoline HCl (Afrin) 2 spray ASDIRECTED PRN NA SEE LABEL COMMENTS 10/26/20 09:00 Pantoprazole Sodium (Protonix) 40 mg DAILY PO 10/24/20 09:00 10/26/20 09:33 Polyethylene Glycol (Miralax) 1 pkt DAILY PRN PO CONSTIPATION 10/23/20 16:30 10/26/20 09:33 Pregabalin (Lyrica) 75 mg QHS PO 10/23/20 21:00 10/25/20 20:59 Ramelteon (Rozerem) 8 mg QHS PRN PO INSOMNIA 10/23/20 16:30 10/24/20 21:55 Senna (Senokot) 1 tab QHS PO 10/23/20 21:00 10/25/20 20:59 Tamsulosin HCl (Flomax) 0.4 mg DAILY PO 10/24/20 09:00 10/26/20 09:33 Torsemide (Demadex) 10 mg DAILY PO 10/24/20 09:00 10/26/20 09:33 DERIK MONREAL MD Oct 26, 2020 11:20
[2020-10-26 14:00] VITALS: BP 134/60
[2020-10-26] MEDS: LORATADINE 10 MG TAB PO SCH (14:51)
[2020-10-26] MEDS: SODIUM CHLORIDE NASAL 0.65% SPRAY BTL (OCEAN) SCH ×2 (17:20→20:36)
[2020-10-26 20:00] VITALS: BP 139/64
[2020-10-26] MEDS: PREGABALIN 75 MG CAP(LYRICA) PO SCH (20:36)
[2020-10-26] MEDS: RAMELTEON 8 MG TAB (ROZEREM) PO PRN (20:36)
[2020-10-26] MEDS: SENNA 8.6 MG TAB (SENOKOT) PO SCH (20:36)
[2020-10-26] MEDS: ACETAMINOPHEN TAB 650MG DOSE (2X325MG) PO PRN (20:43)
[2020-10-26] MEDS: FLUTICASONE PROP 0.05% NASAL SPRAY 16 GM (FLONASE) NARES SCH (20:43)
[2020-10-27 04:00] VITALS: BP 142/64
[2020-10-27] MEDS: LEVOTHYROXINE 112MCG TABLET (0.112MG) PO SCH (05:44)
[2020-10-27] MEDS: COMBIVENT RESPIMAT 100-20MCG INHALER 4GM INH SCH ×3 (07:12→20:11)
[2020-10-27] MEDS: ATORVASTATIN 20 MG TAB PO SCH (08:24)
[2020-10-27] MEDS: LACTOBACILLUS ACIDOPHILUS CAP (BACID) PO SCH ×3 (08:24→19:34)
[2020-10-27] MEDS: FERROUS GLUCONATE 324 MG TAB PO SCH (08:24)
[2020-10-27] MEDS: ASPIRIN 81MG ENTERIC TABLET PO SCH (08:24)
[2020-10-27] MEDS: AZITHROMYCIN 250MG TABLET PO SCH (08:24)
[2020-10-27] MEDS: guaiFENesin 200 MG TAB PO SCH ×3 (08:24→19:34)
[2020-10-27] MEDS: FINASTERIDE 5 MG TAB PO SCH (08:24)
[2020-10-27] MEDS: CEFDINIR 300 MG CAP (OMNICEF) PO SCH ×2 (08:24→19:34)
[2020-10-27] MEDS: TAMSULOSIN 0.4 MG CAP PO SCH (08:24)
[2020-10-27] MEDS: LORATADINE 10 MG TAB PO SCH (08:24)
[2020-10-27] MEDS: TORSEMIDE 10 MG TABLET PO SCH (08:24)
[2020-10-27] MEDS: APIXABAN 2.5 MG TAB (ELIQUIS) PO SCH ×2 (08:24→19:34)
[2020-10-27] MEDS: DOCUSATE SODIUM 100MG CAPSULE PO SCH ×2 (08:24→19:34)
[2020-10-27] MEDS: MAGIC MOUTHWASH SUSPENSION BTL SSP SCH ×3 (08:24→18:03)
[2020-10-27] MEDS: MULTIVITAMINS/MINERALS THERAP 1 TAB PO SCH (08:24)
[2020-10-27] MEDS: PANTOPRAZOLE 40MG TAB (PROTONIX) PO SCH (08:24)
[2020-10-27] MEDS: SODIUM CHLORIDE NASAL 0.65% SPRAY BTL (OCEAN) SCH ×3 (08:25→19:35)
[2020-10-27] MEDS: FLUTICASONE PROP 0.05% NASAL SPRAY 16 GM (FLONASE) NARES SCH ×2 (08:25→19:35)
[2020-10-27] MEDS: REMEDY PHYTOPLEX Z-GUARD PASTE 113GM TUBE (FROM STOREROOM PRODUCT) TOP SCH ×3 (08:26→19:35)
[2020-10-27 14:00] VITALS: BP 112/59
[2020-10-27] MEDS: MAGNESIUM SULFATE GRANULES(EPSOM SALT) 1LB TOP SCH (18:03)
[2020-10-27] MEDS: SENNA 8.6 MG TAB (SENOKOT) PO SCH (19:34)
[2020-10-27] MEDS: PREGABALIN 75 MG CAP(LYRICA) PO SCH (19:34)
[2020-10-27] MEDS: RAMELTEON 8 MG TAB (ROZEREM) PO PRN (19:34)
[2020-10-27 20:00] VITALS: BP 128/59
[2020-10-28] MEDS: LEVOTHYROXINE 112MCG TABLET (0.112MG) PO SCH (05:55)
[2020-10-28 06:00] VITALS: BP 167/75
[2020-10-28] MEDS: COMBIVENT RESPIMAT 100-20MCG INHALER 4GM INH SCH ×2 (07:49→15:12)
[2020-10-28] MEDS: MAGIC MOUTHWASH SUSPENSION BTL SSP SCH ×3 (08:52→16:28)
[2020-10-28] MEDS: ASPIRIN 81MG ENTERIC TABLET PO SCH (08:52)
[2020-10-28] MEDS: FERROUS GLUCONATE 324 MG TAB PO SCH (08:52)
[2020-10-28] MEDS: LACTOBACILLUS ACIDOPHILUS CAP (BACID) PO SCH ×3 (08:52→19:11)
[2020-10-28] MEDS: CEFDINIR 300 MG CAP (OMNICEF) PO SCH ×2 (08:52→19:11)
[2020-10-28] MEDS: PANTOPRAZOLE 40MG TAB (PROTONIX) PO SCH (08:52)
[2020-10-28] MEDS: AZITHROMYCIN 250MG TABLET PO SCH (08:53)
[2020-10-28] MEDS: LORATADINE 10 MG TAB PO SCH (08:53)
[2020-10-28] MEDS: guaiFENesin 200 MG TAB PO SCH ×3 (08:53→19:11)
[2020-10-28] MEDS: FLUTICASONE PROP 0.05% NASAL SPRAY 16 GM (FLONASE) NARES SCH ×2 (08:53→19:11)
[2020-10-28] MEDS: FINASTERIDE 5 MG TAB PO SCH (08:53)
[2020-10-28] MEDS: ATORVASTATIN 20 MG TAB PO SCH (08:53)
[2020-10-28] MEDS: SODIUM CHLORIDE NASAL 0.65% SPRAY BTL (OCEAN) SCH ×3 (08:53→19:12)
[2020-10-28] MEDS: REMEDY PHYTOPLEX Z-GUARD PASTE 113GM TUBE (FROM STOREROOM PRODUCT) TOP SCH ×3 (08:53→19:12)
[2020-10-28] MEDS: MULTIVITAMINS/MINERALS THERAP 1 TAB PO SCH (08:53)
[2020-10-28] MEDS: APIXABAN 2.5 MG TAB (ELIQUIS) PO SCH ×2 (08:53→19:11)
[2020-10-28] MEDS: DOCUSATE SODIUM 100MG CAPSULE PO SCH ×2 (08:53→19:11)
[2020-10-28] MEDS: TORSEMIDE 10 MG TABLET PO SCH (08:53)
[2020-10-28] MEDS: TAMSULOSIN 0.4 MG CAP PO SCH (08:53)
[2020-10-28] MEDS: ACETAMINOPHEN TAB 650MG DOSE (2X325MG) PO PRN (08:58)
[2020-10-28 14:00] VITALS: BP_SYST 138; BP_SYST 142; BP_DIAS 62; BP_DIAS 73
[2020-10-28] MEDS: SENNA 8.6 MG TAB (SENOKOT) PO SCH (19:11)
[2020-10-28] MEDS: RAMELTEON 8 MG TAB (ROZEREM) PO PRN (19:11)
[2020-10-28] MEDS: PREGABALIN 75 MG CAP(LYRICA) PO SCH (19:11)
[2020-10-28 20:00] VITALS: BP 132/58
[2020-10-29] MEDS: COMBIVENT RESPIMAT 100-20MCG INHALER 4GM INH SCH ×4 (00:35→20:00)
[2020-10-29 06:00] VITALS: BP 137/65
[2020-10-29] MEDS: LEVOTHYROXINE 112MCG TABLET (0.112MG) PO SCH (06:02)
[2020-10-29 06:49] LABS: BASO # 0.1 10^3/uL (0.0-0.2); BASO % 0.9 % (0.0-1.0); EOS # 0.4 10^3/uL (0.0-0.5); HEMATOCRIT 31.9 % (42.0-52.0); HEMOGLOBIN 10.4 g/dl (13.5-17.5); LYMPH # 1.3 10^3/uL (1.5-5.0); LYMPH % 19.5 % (24.0-44.0); MEAN CORPUSCULAR HEMOGLOBIN 29.7 pg (27.0-33.0); MEAN CORPUSCULAR HGB CONC 32.6 g/dl (32.0-36.5); MEAN CORPUSCULAR VOLUME 91.1 fl (80.0-96.0); MONO # 0.5 10^3/uL (0.0-0.8); MONO % 6.6 % (2.0-8.0); NEUTROPHILS # 4.5 10^3/uL (1.5-8.5); NEUTROPHILS % 64.8 % (36.0-66.0); PLATELET COUNT, AUTOMATED 236 10^3/uL (150-450); WHITE BLOOD COUNT 6.9 10^3/uL (4.0-10.0)
[2020-10-29 07:11] LABS: BLOOD UREA NITROGEN 24 MG/DL (7-18); CALCIUM LEVEL 8.9 MG/DL (8.8-10.2); CARBON DIOXIDE LEVEL 31 MEQ/L (21-32); CHLORIDE LEVEL 107 MEQ/L (98-107); CREATININE FOR GFR 0.95 MG/DL (0.70-1.30); GLOMERULAR FILTRATION RATE > 60.0 (>35); GLUCOSE, FASTING 120 MG/DL (70-100); POTASSIUM SERUM 4.2 MEQ/L (3.5-5.1); SODIUM LEVEL 141 MEQ/L (136-145)
[2020-10-29] MEDS: MAGIC MOUTHWASH SUSPENSION BTL SSP SCH ×3 (08:26→16:23)
[2020-10-29] MEDS: LACTOBACILLUS ACIDOPHILUS CAP (BACID) PO SCH ×3 (08:26→20:59)
[2020-10-29] MEDS: AZITHROMYCIN 250MG TABLET PO SCH (08:27)
[2020-10-29] MEDS: FINASTERIDE 5 MG TAB PO SCH (08:27)
[2020-10-29] MEDS: TAMSULOSIN 0.4 MG CAP PO SCH (08:27)
[2020-10-29] MEDS: LORATADINE 10 MG TAB PO SCH (08:27)
[2020-10-29] MEDS: ASPIRIN 81MG ENTERIC TABLET PO SCH (08:27)
[2020-10-29] MEDS: MULTIVITAMINS/MINERALS THERAP 1 TAB PO SCH (08:27)
[2020-10-29] MEDS: guaiFENesin 200 MG TAB PO SCH ×3 (08:27→20:59)
[2020-10-29] MEDS: APIXABAN 2.5 MG TAB (ELIQUIS) PO SCH ×2 (08:27→20:59)
[2020-10-29] MEDS: PANTOPRAZOLE 40MG TAB (PROTONIX) PO SCH (08:27)
[2020-10-29] MEDS: DOCUSATE SODIUM 100MG CAPSULE PO SCH ×2 (08:27→20:59)
[2020-10-29] MEDS: CEFDINIR 300 MG CAP (OMNICEF) PO SCH ×2 (08:27→20:59)
[2020-10-29] MEDS: ATORVASTATIN 20 MG TAB PO SCH (08:27)
[2020-10-29] MEDS: FERROUS GLUCONATE 324 MG TAB PO SCH (08:27)
[2020-10-29] MEDS: TORSEMIDE 10 MG TABLET PO SCH (08:28)
[2020-10-29] MEDS: FLUTICASONE PROP 0.05% NASAL SPRAY 16 GM (FLONASE) NARES SCH ×2 (08:28→21:00)
[2020-10-29] MEDS: REMEDY PHYTOPLEX Z-GUARD PASTE 113GM TUBE (FROM STOREROOM PRODUCT) TOP SCH ×3 (08:28→21:00)
[2020-10-29] MEDS: SODIUM CHLORIDE NASAL 0.65% SPRAY BTL (OCEAN) SCH ×3 (08:29→21:00)
[2020-10-29 14:00] VITALS: BP 129/58
[2020-10-29 20:00] VITALS: BP 133/62
[2020-10-29] MEDS: PREGABALIN 75 MG CAP(LYRICA) PO SCH (20:59)
[2020-10-29] MEDS: SENNA 8.6 MG TAB (SENOKOT) PO SCH (20:59)
[2020-10-30] MEDS: LEVOTHYROXINE 112MCG TABLET (0.112MG) PO SCH (05:23)
[2020-10-30 06:22] VITALS: BP 134/61
--- NOTE | 2020-10-30 07:25 | IPNPDOC ---
PM&R Progress Note DATE OF SERVICE: Oct 30, 2020 Medicaid Billing Clerk Progress Note Subjective: Patient stating he feels like he is stronger and at the point where he feels safe to go home. he reports having a good home set up and family support. REVIEW OF SYSTEMS: The following is a completed review of systems and has been reviewed. Review of systems otherwise unremarkable. PAIN: Patient self reports no pain EYES: No recent vision changes EARS, NOSE, & THROAT: +mild dysphagia (chronic) CARDIOVASCULAR: Denies chest pain or palpitations PULMONARY: Denies shortness of breath GASTROINTESTINAL: Denies constipation/diarrhea GENITOURINARY: denies dysuria MUSCULOSKELETAL: generalized weakness NEUROLOGICAL:spinal stenosis with bilat foot drop and peripheral polyneuropathy HEMATOLOGICAL: +easy bruising SKIN: +bilat feet ulcers PSYCHIATRIC: Unremarkable All other review of systems found to be negative. PHYSICAL EXAMINATION: VITAL SIGNS: Please see below. GENERAL: Pleasant and cooperative. No acute distress. HEENT: PERRL. Extraocular movements intact. Clear conjunctiva CARDIOVASCULAR: Regular rate and rhythm. No murmurs, rubs, or gallops LUNGS: Clear to auscultation bilaterally. No wheezes. No rhonchi ABDOMEN: Soft, nontender, nondistended. Positive bowel sounds. Normal active bowel sounds NEUROLOGICAL: Alert and oriented times three. Cranial nerves II through XII grossly intact. Sensation diminished to light touch in stocking pattern EXTREMITIES: 4\5 strength bilateral upper extremities with interosseous wasting bilat 3+/5 bilat hip flexors, knee extensors, 2/5 ankle DF, 0/5 EHL bilat SKIN: bilat multiple blanchable erythematous areas on bony prominences of feet ASSESSMENT:85-year-old M with past medical history of spinal stenosis, afib, multiple falls who presents status post worsening weakness found to have CAP and severe cervical stenosis PLAN: 1. Rehab- PT/OT advance mobiltiy and ADLs, strengthen.stretch.maintain ROM all 4 limbs, balance training -[employer]IVER for recurrent aspiration PNA to r/o dysphagia- down graded to level 2, FEES performed 2. Neuro- severe cervical stenosis with peripheral polyneuropathy contributing to falls and overall weakness- rehab to help with strengthening- will refer to ortho spine on d/c to discuss surgical options 3. CArdiac- Afib with PM set at 50bpm- c/u eliquis -diastolic CHF c/u torsemide, daily weights, fluid restrict -CAD s/p CABG c/u ASA and statin -medicine consulted to assist in overall management 4. Resp- recurrent PNA now being treated for CAP s/p ceftriaxone s/p course of azithromycin and cefdinir- combivent and guaifenesin, patient's secretions improving -c/u magic mouth wash for concern for possible aspirations, HOB 30 degreed, claritin flonase and nasal saline to dry up sinuses, will refer to ENT -[employer] DRIVER eval for dysphagia work-up 5. GI ppx- protonix 6. DVT ppx on eliquis 7. Endo- hypothryoidism c/u synthroid 8. Pain- tylenol and lyrica for neuropathy 9. - hx of bph c/o Flomax and Proscar, monitor PVRs -hx of bladder cancer s/p chemo 10. Skin- AFOs/shoes to be worn in therapy only, wound care instructions per nursing orders 11. Dispo- 10-31-20 to home, progressing towards goals DME: Patient would benefit from a powered mobility device such as a scooter to help him be able to be able to negotiate community distances when out of his home. It will increase his ability to socialize, be an active member of his community, and provide him the assistance to perform his IADLs. He has good vision, strong trunk control, and has the faculties to be able to operate this sort of machinery. Allergies Coded Allergies: No Known Allergies (Unverified , 12/29/19) Vital Signs Vital Signs Date Time Temp Pulse Resp B/P (MAP) Pulse Ox O2 Delivery O2 Flow Rate FiO2 10/30/20 06:22 96.3 64 18 134/61 (85) 96 Room Air Current Medications Current Medications Current Medications Medications (Trade) Dose Ordered Sig/Gunner Route PRN Reason Start Time Stop Time Status Last Admin Dose Admin Acetaminophen (Tylenol Tab) 650 mg Q4HP PRN PO fever/MILD PAIN (PS 1-4) 10/23/20 16:30 10/28/20 08:58 Al Hydrox/Mg Hydrox/Simethicone (Mylanta) 30 ml Q6HP PRN PO HEARTBURN 10/26/20 11:05 Albuterol/ Ipratropium (Combivent Respimat 100-20mcg) 1 puff RTID INH 10/24/20 14:00 10/29/20 20:00 Apixaban (Eliquis) 2.5 mg BID PO 10/23/20 21:00 10/29/20 20:59 Aspirin (Ecotrin) 81 mg DAILY PO 10/24/20 09:00 10/29/20 08:27 Atorvastatin Calcium (Lipitor) 20 mg DAILY PO 10/24/20 09:00 10/29/20 08:27 Azithromycin (Zithromax Tab) 250 mg DAILY PO 10/24/20 09:00 10/30/20 09:01 10/29/20 08:27 Bisacodyl (Dulcolax Suppository) [address] CONSTIPATION 10/23/20 16:30 Cefdinir (Omnicef) 300 mg BID PO 10/23/20 21:00 10/30/20 09:01 10/29/20 20:59 Docusate Sodium (Colace) 100 mg BID PO 10/23/20 21:00 10/29/20 20:59 Ferrous Gluconate (Fergon) 324 mg DAILY PO 10/24/20 09:00 10/29/20 08:27 Finasteride (Proscar) 5 mg DAILY PO 10/24/20 09:00 10/29/20 08:27 Fluticasone Propionate (Flonase 0.05% Nasal [place]) 1 spray BID NARES 10/26/20 21:00 10/29/20 21:00 Guaifenesin (Robitussin Tab) 400 mg TID PO 10/24/20 09:00 10/29/20 20:59 Lactobacillus Acidophilus (Bacid) 1 ea TID PO 10/23/20 21:00 10/29/20 20:59 Levothyroxine Sodium (Synthroid) 112 mcg DAILY@06 PO 10/24/20 06:00 10/30/20 05:23 Lidocaine/ Diphenhydr/Alum/ Mg/Simeth (Magic Mouthwash) 5ML AC SSP 10/24/20 12:00 10/29/20 16:23 Loratadine (Claritin) 10 mg DAILY PO 10/26/20 09:00 10/29/20 08:27 Magnesium Sulfate (Epsom Salt) soak bilat feet for 15 bernabe... Q3D TOP 10/24/20 17:00 10/27/20 18:03 Multivitamins (Theragram-M) 1 tab DAILY PO 10/24/20 09:00 10/29/20 08:27 Oxymetazoline HCl (Afrin) 2 spray ASDIRECTED PRN NA SEE LABEL COMMENTS 10/26/20 09:00 Pantoprazole Sodium (Protonix) 40 mg DAILY PO 10/24/20 09:00 10/29/20 08:27 Polyethylene Glycol (Miralax) 1 pkt DAILY PRN PO CONSTIPATION 10/23/20 16:30 10/26/20 09:33 Pregabalin (Lyrica) 75 mg QHS PO 10/23/20 21:00 10/29/20 20:59 Ramelteon (Rozerem) 8 mg QHS PRN PO INSOMNIA 10/23/20 16:30 10/28/20 19:11 Senna (Senokot) 1 tab QHS PO 10/23/20 21:00 10/29/20 20:59 Sodium Chloride ([place] Mix Nasal [place]) 2 spray TID NA 10/26/20 16:00 10/29/20 21:00 Tamsulosin HCl (Flomax) 0.4 mg DAILY PO 10/24/20 09:00 10/29/20 08:27 Torsemide (Demadex) 10 mg DAILY PO 10/24/20 09:00 10/29/20 08:28 DERIK MONREAL MD Oct 30, 2020 07:25
[2020-10-30] MEDS: COMBIVENT RESPIMAT 100-20MCG INHALER 4GM INH SCH ×3 (07:30→20:13)
[2020-10-30] MEDS: MAGIC MOUTHWASH SUSPENSION BTL SSP SCH ×3 (08:23→17:04)
[2020-10-30] MEDS: guaiFENesin 200 MG TAB PO SCH ×3 (08:24→20:50)
[2020-10-30] MEDS: DOCUSATE SODIUM 100MG CAPSULE PO SCH ×2 (08:24→20:51)
[2020-10-30] MEDS: PANTOPRAZOLE 40MG TAB (PROTONIX) PO SCH (08:24)
[2020-10-30] MEDS: CEFDINIR 300 MG CAP (OMNICEF) PO SCH (08:24)
[2020-10-30] MEDS: FINASTERIDE 5 MG TAB PO SCH (08:24)
[2020-10-30] MEDS: TORSEMIDE 10 MG TABLET PO SCH (08:24)
[2020-10-30] MEDS: ASPIRIN 81MG ENTERIC TABLET PO SCH (08:24)
[2020-10-30] MEDS: APIXABAN 2.5 MG TAB (ELIQUIS) PO SCH ×2 (08:24→20:51)
[2020-10-30] MEDS: ATORVASTATIN 20 MG TAB PO SCH (08:24)
[2020-10-30] MEDS: MULTIVITAMINS/MINERALS THERAP 1 TAB PO SCH (08:24)
[2020-10-30] MEDS: LORATADINE 10 MG TAB PO SCH (08:24)
[2020-10-30] MEDS: AZITHROMYCIN 250MG TABLET PO SCH (08:24)
[2020-10-30] MEDS: LACTOBACILLUS ACIDOPHILUS CAP (BACID) PO SCH ×3 (08:24→20:50)
[2020-10-30] MEDS: TAMSULOSIN 0.4 MG CAP PO SCH (08:24)
[2020-10-30] MEDS: FERROUS GLUCONATE 324 MG TAB PO SCH (08:24)
[2020-10-30] MEDS: REMEDY PHYTOPLEX Z-GUARD PASTE 113GM TUBE (FROM STOREROOM PRODUCT) TOP SCH ×3 (08:25→20:54)
[2020-10-30] MEDS: SODIUM CHLORIDE NASAL 0.65% SPRAY BTL (OCEAN) SCH ×3 (08:25→20:53)
[2020-10-30] MEDS: FLUTICASONE PROP 0.05% NASAL SPRAY 16 GM (FLONASE) NARES SCH ×2 (08:25→20:53)
[2020-10-30 14:00] VITALS: BP 132/71
[2020-10-30] MEDS: MAGNESIUM SULFATE GRANULES(EPSOM SALT) 1LB TOP SCH (17:04)
[2020-10-30 19:41] VITALS: BP 158/72
[2020-10-30] MEDS: PREGABALIN 75 MG CAP(LYRICA) PO SCH (20:51)
[2020-10-30] MEDS: SENNA 8.6 MG TAB (SENOKOT) PO SCH (20:51)
[2020-10-31 05:27] VITALS: BP 142/65
[2020-10-31] MEDS: LEVOTHYROXINE 112MCG TABLET (0.112MG) PO SCH (06:20)
[2020-10-31] MEDS: COMBIVENT RESPIMAT 100-20MCG INHALER 4GM INH SCH (07:18)
[2020-10-31 07:36] LABS: BASO # 0.1 10^3/uL (0.0-0.2); BASO % 0.9 % (0.0-1.0); EOS # 0.4 10^3/uL (0.0-0.5); EOS % 6.8 % (0.0-3.0); HEMATOCRIT 31.4 % (42.0-52.0); HEMOGLOBIN 10.2 g/dl (13.5-17.5); LYMPH # 1.2 10^3/uL (1.5-5.0); MEAN CORPUSCULAR HEMOGLOBIN 29.8 pg (27.0-33.0); MEAN CORPUSCULAR HGB CONC 32.5 g/dl (32.0-36.5); MEAN CORPUSCULAR VOLUME 91.8 fl (80.0-96.0); MONO # 0.5 10^3/uL (0.0-0.8); MONO % 8.2 % (2.0-8.0); NEUTROPHILS # 3.5 10^3/uL (1.5-8.5); NEUTROPHILS % 60.6 % (36.0-66.0); PLATELET COUNT, AUTOMATED 229 10^3/uL (150-450); RED BLOOD COUNT 3.42 10^6/uL (4.30-6.10); WHITE BLOOD COUNT 5.7 10^3/uL (4.0-10.0)
[2020-10-31 07:54] LABS: BLOOD UREA NITROGEN 23 MG/DL (7-18); CALCIUM LEVEL 9.4 MG/DL (8.8-10.2); CARBON DIOXIDE LEVEL 32 MEQ/L (21-32); CHLORIDE LEVEL 107 MEQ/L (98-107); GLOMERULAR FILTRATION RATE > 60.0 (>35); GLUCOSE, FASTING 114 MG/DL (70-100); POTASSIUM SERUM 4.4 MEQ/L (3.5-5.1); SODIUM LEVEL 143 MEQ/L (136-145)
[2020-10-31] MEDS: PANTOPRAZOLE 40MG TAB (PROTONIX) PO SCH (08:22)
[2020-10-31] MEDS: TORSEMIDE 10 MG TABLET PO SCH (08:22)
[2020-10-31] MEDS: guaiFENesin 200 MG TAB PO SCH (08:22)
[2020-10-31] MEDS: MULTIVITAMINS/MINERALS THERAP 1 TAB PO SCH (08:22)
[2020-10-31] MEDS: FERROUS GLUCONATE 324 MG TAB PO SCH (08:22)
[2020-10-31] MEDS: ASPIRIN 81MG ENTERIC TABLET PO SCH (08:22)
[2020-10-31] MEDS: FINASTERIDE 5 MG TAB PO SCH (08:22)
[2020-10-31] MEDS: ATORVASTATIN 20 MG TAB PO SCH (08:22)
[2020-10-31] MEDS: MAGIC MOUTHWASH SUSPENSION BTL SSP SCH (08:22)
[2020-10-31] MEDS: DOCUSATE SODIUM 100MG CAPSULE PO SCH (08:22)
[2020-10-31] MEDS: LACTOBACILLUS ACIDOPHILUS CAP (BACID) PO SCH (08:22)
[2020-10-31] MEDS: TAMSULOSIN 0.4 MG CAP PO SCH (08:22)
[2020-10-31] MEDS: SODIUM CHLORIDE NASAL 0.65% SPRAY BTL (OCEAN) SCH (08:23)
[2020-10-31] MEDS: APIXABAN 2.5 MG TAB (ELIQUIS) PO SCH (08:23)
[2020-10-31] MEDS: LORATADINE 10 MG TAB PO SCH (08:23)
[2020-10-31] MEDS: FLUTICASONE PROP 0.05% NASAL SPRAY 16 GM (FLONASE) NARES SCH (08:23)
[2020-10-31] MEDS: REMEDY PHYTOPLEX Z-GUARD PASTE 113GM TUBE (FROM STOREROOM PRODUCT) TOP SCH (08:23)
[2020-10-31] MEDS ORDERED: TORS10TA3 PO (08:42)
[2020-10-31] MEDS ORDERED: PANT40TA29 PO (08:42)
[2020-10-31] MEDS ORDERED: SYNT112T2 PO (08:42)
[2020-10-31] MEDS ORDERED: ASPI-551 PO (08:42)
[2020-10-31] MEDS ORDERED: ELIQ2.5T PO (08:42)
[2020-10-31] MEDS ORDERED: FLUTISP NARES (08:42)
[2020-10-31] MEDS ORDERED: FINA5TAB2 PO (08:42)
[2020-10-31] MEDS ORDERED: ATOR1TAB21 PO (08:42)
[2020-10-31] MEDS ORDERED: FERR32TA PO (08:42)
[2020-10-31] MEDS ORDERED: CLAR10TA7 PO (08:42)
[2020-10-31] MEDS ORDERED: FLOM0.4C39 PO (08:42)
[2020-10-31] MEDS ORDERED: PERI0.126 PO (08:44)
--- NOTE | 2020-10-31 09:42 | PMRDS ---
NAME: ELIZABETH DEWEY [facility] WT ID#: [id number] JOB: [id number] CHICO: 10/23/2020 ACCT: [id number] DOCTOR: DERIK MONREAL MD PMR DISCHARGE SUMMARY DATE OF ADMISSION: 10/23/2020 DATE OF DISCHARGE: 10/31/2020 CHIEF COMPLAINT/DISCHARGE DIAGNOSIS: Weakness in the setting of spinal stenosis and pneumonia. HISTORY OF PRESENT ILLNESS: This is an 85-year-old man with a past medical history of CAD status post CABG, hypertension, chronic diastolic CHF, CAD on aspirin, BPH, atrial fibrillation with pacemaker set to the rate of 50 beats per minute, on Eliquis, severe spinal stenosis, bladder cancer status post chemo, multiple aspiration pneumonia. He was falling at home and presented to [facility] ED on 10/20/2020 with episodes of syncope. CTH was negative for intracranial hemorrhage. Cervical spine CT showed "severe degenerative changes are noted, most likely resulting in cord compromise," and CT of chest did reveal a right lung opacity consistent with pneumonia. The etiology of his falls was thought to be due to cervical stenosis with superimposed pneumonia for which he was started on IV antibiotics and transitioned to p.o., Azithromycin and Cefdinir. He was noted to have mobility and ADL impairments below his baseline and deemed medically appropriate for discharge to ARU. PAST MEDICAL HISTORY: As per HPI. HOSPITAL COURSE: Patient was admitted and enrolled in a comprehensive PT/OT, Speech Language and Pathology Program. He received 24 hour nursing supervision and weekly team meetings were held to discuss his progress. Patient was able to ambulate with the use of AFOs and consult was placed for new AFO. He was noted to have bilateral lower extremity pressure ulcers that were not open, however patient and staff were instructed to remove shoes and AFOs after therapy. He showed improvement in his respiratory status and cough following a course of Azithromycin and Cefdinir, he was also started on Combivent and Guaifenesin. __ was ordered for his dysphagia and he was noted to have copious amount of secretions in his nasopharynx. He was started on Flonase, Nasal Saline and Claritin and reported that his sinuses felt sock drier. He made steady gains in therapy and was deemed medically and functionally stable to return home with family. DISCHARGE MEDICATIONS: As per instructions. FUNCTIONAL HISTORY: On discharge, the patient was contact guard assist for ambulation and contact guard assist for toileting, shower and functional transfers. Thank you for this referral.
== END 2020-10-31 10:28 | disposition home health service (06) | DRG 552 ==
LOC: M PM&R 16:48
PROVIDERS: ADMIT Physical Medicine & Rehabilitation; ATTEND Physical Medicine & Rehabilitation
DX: M48.02 Spinal stenosis, cervical region (principal); I50.32 Chronic diastolic (congestive) heart failure; I13.0 Hypertensive heart and chronic kidney disease with heart failure and stage 1 through stage 4 chronic kidney disease, or unspecified chronic kidney disease; I25.10 Atherosclerotic heart disease of native coronary artery without angina pectoris; N40.0 Benign prostatic hyperplasia without lower urinary tract symptoms; I48.91 Unspecified atrial fibrillation; Z85.51 Personal history of malignant neoplasm of bladder; R53.1 Weakness; Z92.21 Personal history of antineoplastic chemotherapy; 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 cardiac pacemaker; R13.10 Dysphagia, unspecified; Z74.09 Other reduced mobility; Z74.1 Need for assistance with personal care; Z98.41 Cataract extraction status, right eye; Z98.42 Cataract extraction status, left eye; Z95.1 Presence of aortocoronary bypass graft; Z90.49 Acquired absence of other specified parts of digestive tract; Z79.01 Long term (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 anticoagulants; Z79.82 Long term (current) use of aspirin; Z79.899 Other long term (current) drug therapy; R29.6 Repeated falls; N18.30 Chronic kidney disease, stage 3 unspecified; K21.9 Gastro-esophageal reflux disease without esophagitis; G62.9 Polyneuropathy, unspecified; M21.371 Foot drop, right foot; M21.372 Foot drop, left foot; L97.529 Non-pressure chronic ulcer of other part of left foot with unspecified severity; L97.519 Non-pressure chronic ulcer of other part of right foot with unspecified severity

== ENCOUNTER → 2020-11-02 | Outpatient (CLI) | payer MEDICARE, BC ==
[~2020-11-02] MED LIST changes: +ASPI-551 PO; +CLAR10TA7 PO; +FLUTISP NARES; +PERI0.126 PO
[2020-11-02 11:59] LABS: ALBUMIN 3.2 GM/DL (3.2-5.2); BILIRUBIN,TOTAL 0.5 MG/DL (0.2-1.0); CALCIUM LEVEL 9.5 MG/DL (8.8-10.2); CREATININE FOR GFR 1.24 MG/DL (0.70-1.30); GLOMERULAR FILTRATION RATE 58.7 (>35); MAGNESIUM LEVEL 2.2 MG/DL (1.8-2.4); POTASSIUM SERUM 5.1 MEQ/L (3.5-5.1); TOTAL PROTEIN 7.9 GM/DL (6.4-8.2)
== END ==
LOC: M WUC 09:16
PROVIDERS: ATTEND Physician Assistant
DX: I47.2 Ventricular tachycardia (principal)

== ENCOUNTER 2020-11-30 10:08 | Inpatient (IN) | payer MEDICARE, BC ==
[~2020-11-30] VITALS: Ht 182.9 cm; Wt 90.7 kg
--- NOTE | 2020-11-30 11:02 | REP ---
INDICATION: constipation, concern for obstruction. COMPARISON: Chest 10/22/2020. TECHNIQUE: Supine and erect views of the abdomen. Frontal view chest. FINDINGS: There is no evidence of free intraperitoneal air. There is no evidence of bowel obstruction, no significantly dilated bowel loops are seen. Diffuse vascular calcifications are present. There is an aorto bi-iliac stent graft present. There are degenerative changes of the spine and hips. There is infiltrate in the right lung base with small right pleural effusion. The left lung demonstrates no infiltrate. The heart is not enlarged. There is a hiatal hernia. Multiple sternal wires and mediastinal clips are present. A left pacemaker is again noted. IMPRESSION: No free air or obstruction. Right lung base infiltrate with small right pleural effusion. <Electronically signed by Edgard Canas > 11/30/20 [id number]
[2020-11-30 11:16] LABS: BASO # 0.1 10^3/uL (0.0-0.2); BASO % 0.5 % (0.0-1.0); EOS # 0.3 10^3/uL (0.0-0.5); EOS % 2.8 % (0.0-3.0); HEMATOCRIT 34.8 % (42.0-52.0); HEMOGLOBIN 11.1 g/dl (13.5-17.5); LYMPH # 1.6 10^3/uL (1.5-5.0); LYMPH % 16.9 % (24.0-44.0); MEAN CORPUSCULAR HEMOGLOBIN 29.6 pg (27.0-33.0); MEAN CORPUSCULAR HGB CONC 31.9 g/dl (32.0-36.5); MEAN CORPUSCULAR VOLUME 92.8 fl (80.0-96.0); MONO # 0.7 10^3/uL (0.0-0.8); MONO % 7.2 % (2.0-8.0); NEUTROPHILS # 6.7 10^3/uL (1.5-8.5); NEUTROPHILS % 72.3 % (36.0-66.0); PLATELET COUNT, AUTOMATED 249 10^3/uL (150-450); RED BLOOD COUNT 3.75 10^6/uL (4.30-6.10); WHITE BLOOD COUNT 9.2 10^3/uL (4.0-10.0)
[2020-11-30] MEDS ORDERED: AMIO200T3 PO (11:21)
[2020-11-30] MEDS ORDERED: NS 500 ML IV ONE (11:30)
[2020-11-30] MEDS ORDERED: FLEET OIL RETENTION ENEMA PR PRN ×2 (11:30→16:00)
[2020-11-30 11:50] LABS: ALBUMIN 2.7 GM/DL (3.2-5.2); BILIRUBIN,DIRECT 0.2 MG/DL (0.0-0.2); BILIRUBIN,TOTAL 0.6 MG/DL (0.2-1.0); TOTAL PROTEIN 7.8 GM/DL (6.4-8.2)
[2020-11-30] MEDS ORDERED: ISOVUE-370 76% 100ML VIAL As Ordered ONE (12:29)
[2020-11-30] MEDS ORDERED: LIDOCAINE 2% 5ML JELLY UROJET TOP ONE (14:55)
[2020-11-30] MEDS ORDERED: BISACODYL 5 MG TAB PO PRN (16:35)
[2020-11-30] MEDS ORDERED: MOM 30ML SUSPENSION UDC PO PRN (16:35)
[2020-11-30] MEDS ORDERED: SENOKOT S TAB PO PRN (16:35)
[2020-11-30] MEDS ORDERED: PANT-23 PO (16:52)
[2020-11-30] MEDS ORDERED: SYNT112T2 PO (16:52)
[2020-11-30] MEDS ORDERED: PERI0.126 PO (16:52)
[2020-11-30] MEDS ORDERED: TORS10TA3 PO (16:52)
[2020-11-30] MEDS ORDERED: ASPI81TA26 PO (16:52)
[2020-11-30] MEDS ORDERED: FLOM0.4C39 PO (16:52)
[2020-11-30] MEDS ORDERED: ELIQ2.5T PO (16:52)
[2020-11-30] MEDS ORDERED: ATOR1TAB21 PO (16:52)
[2020-11-30] MEDS ORDERED: FLUTISP NARES (16:52)
[2020-11-30] MEDS ORDERED: FINA5TAB2 PO (16:52)
[2020-11-30] MEDS ORDERED: LORA-674 PO (16:52)
[2020-11-30] MEDS ORDERED: FERR324T21 PO (16:52)
[2020-11-30] MEDS ORDERED: HOME MED LIST COMPLETE! XX SCH (16:55)
[2020-11-30] MEDS: GASTROGRAFIN SOLUTION 30ML PO SCH ×2 (17:00→17:30)
[2020-11-30 17:18] LABS: RSV AMPLIFICATION NEGATIVE (NEGATIVE)
[2020-11-30] MEDS: DOXYCYCLINE HYCLATE 100 MG in D5W MINI-BAG PLUS 100 ML IV SCH (18:00)
[2020-11-30 18:01] LABS: ALBUMIN 2.9 GM/DL (3.2-5.2); BILIRUBIN,DIRECT 0.2 MG/DL (0.0-0.2); BILIRUBIN,TOTAL 0.7 MG/DL (0.2-1.0); C REACTIVE PROTEIN QUANTITATIV 6.07 MG/DL (0.00-0.30)
--- NOTE | 2020-11-30 19:00 | HPEPDOC ---
[facility] Medical History & Physical Date of Admission Nov 30, 2020 Date of Service: Nov 30, 2020 History and Physical CHIEF COMPLAINT: "I have not had a bowel movement in 6 days since Thursday." HISTORY OF PRESENT ILLNESS: 85-year-old male presented to the emergency room with complaints of constipation since Thursday. Patient has used Senokot and a bottle of mag citrate and was advised by his primary care physicians triage nurse to come to the ER for further evaluation. He denies any nausea vomiting abdominal distention fever chills shortness of breath changes in appetite. He has a chronic cough productive of yellow sputum which is unchanged, with prior history of chronic aspiration and recent admission to the hospital in October for multifocal pneumonia which was treated fully with IV antibiotics. Patient denies any chest pain pressure tightness lightheadedness dizziness dysuria urgency frequency. In the emergency room, abdominal x-ray shows a right lower lobe consolidation. CT chest confirms right-sided consolidation he was afebrile with normal white count. For constipation despite 2 enemas patient has had not had any bowel movements. Hospitalist was asked to admit the patient for constipation and finding of a right lower lobe pneumonia most likely from chronic aspiration. Due to abdominal discomfort patient was bladder scanned and was found to have urine retention of greater than 350 mL. catheterization yielded 1 L of urine. Piña catheter was placed. Patient is to be admitted for 2 midnights as an inpatient for chronic aspiration with right-sided pneumonia, urine retention requiring Piña catheter placement. PAST MEDICAL HISTORY: CAD status post CABG Diastolic CHF Hypertension Chronic atrial fibrillation on Eliquis Pacemaker Severe lumbar spinal stenosis Recurrent aspiration Pneumonia October 2020 Bladder cancer status post chemotherapy PAST SURGICAL HISTORY: CABG Bilateral cataract extraction Pacemaker Abdominal aortic aneurysm repair Cholecystectomy Hernia repair Transurethral resection of the prostate Spinal surgery SOCIAL HISTORY: Denies alcohol recreational drug use or tobacco abuse Lives with his FAMILY HISTORY: Noncontributory due to advanced age ALLERGIES: Please see below. REVIEW OF SYSTEMS: 10 point review of systems negative aside from positive findings on HPI HOME MEDICATIONS: Please see below. PHYSICAL EXAMINATION: VITAL SIGNS: See below GENERAL APPEARANCE: Awake alert oriented to person place answering questions appropriately in no distress sitting up at bedside commode HEENT: No JVD thyromegaly or cervical lymphadenopathy moist mucous membranes poor dentition CARDIOVASCULAR: S1-S2 irregularly irregular not tachycardic no S3 LUNGS: Diminished breath sounds crackles noted at the right base ABDOMEN: Positive bowel sounds soft slightly doughy nondistended no rebound or guarding no fluid wave EXTREMITIES: No cyanosis or clubbing LABORATORY DATA: See below. IMAGING: See below MICROBIOLOGY: Please see below. ASSESSMENT: 85-year-old male presented with 6-day history of constipation found to have right lower lobe pneumonia from chronic aspiration and urine retention requiring Piña catheter placement. Patient will be admitted as an inpatient for the following acute issues: Constipation -Obtain CT abdomen and pelvis. -Bowel regimen -Encourage ambulation Right lower lobe pneumonia with chronic aspiration -Check MRSA screen -IV Zosyn and doxycycline -Check sputum culture urine Legionella urine streptococcal antigen and 2 sets of blood cultures Urine retention requiring Piña catheter placement -Flomax -Piña catheter for now and trial of void when ready for hospital discharge CAD CABG -Resume all home medications -Denies any acute cardiac ischemic symptoms but cycle cardiac markers overnight CHF, diastolic dysfunction -Elevated BNP -Fluid restriction 2 L, strict I's and O's, daily weights -No JVD on exam -201 pounds dry weight Hypertensive urgency -Resume home meds, status post 1 dose of IV Lasix Chronic atrial fibrillation on Eliquis/pacemaker -Resume beta-leatha and continue Eliquis Severe spinal stenosis -May need to check MRI of the lumbar spine due to complaints of constipation Recurrent aspiration -Patient is on a modified soft diet level 2 with thin liquids -Swallow eval on Thursday Bladder cancer status post chemotherapy -Patient had a recent urology visit status post cystoscopy. -Outpatient follow-up Vital Signs Vital Signs Date Time Temp Pulse Resp B/P (MAP) Pulse Ox O2 Delivery O2 Flow Rate FiO2 11/30/20 15:33 97.2 52 18 170/70 (103) 97 Room Air Laboratory Data Labs 24H Laboratory Tests 2 11/30/20 10:52: Immature Granulocyte % (Auto) 0.3, Neutrophils (%) (Auto) 72.3H, Lymphocytes (%) (Auto) 16.9L, Monocytes (%) (Auto) 7.2, Eosinophils (%) (Auto) 2.8, Basophils (%) (Auto) 0.5, Neutrophils # (Auto) 6.7, Lymphocytes # (Auto) 1.6, Monocytes # (Auto) 0.7, Eosinophils # (Auto) 0.3, Basophils # (Auto) 0.1, Nucleated Red Blood Cells % (auto) 0.0, Total Bilirubin 0.6, Direct Bilirubin 0.2, Aspartate Amino Transf (AST/SGOT) 34, Alanine Aminotransferase (ALT/SGPT) 27, Alkaline Phosphatase 139H, DG-Exo-C-Type Natriuretic Peptide 1331H, Total Protein 7.8, Albumin 2.7L, Albumin/Globulin Ratio 0.5, Lipase 172 11/30/20 11:09: POC Glucose (Misc Panel) 108H, POC Sodium (Misc Panel) 141, POC Potassium (Misc Panel) 4.7, POC Chloride (Misc Panel) 101, POC Total CO2 (Misc Panel) 28.0H, POC Blood Urea Nitrogen (Misc Panel 28H, POC Ionized Calcium (Misc Panel) 4.6, POC Creatinine (Misc Panel) 1.4H, POC Hematocrit (Misc Panel) 33.0L 11/30/20 16:10: Urine Color YELLOW, Urine Appearance CLEAR, Urine pH 8.0, Urine Specific [place] 1.021, Urine Protein NEGATIVE, Urine Glucose (UA) NEGATIVE, Urine Ketones NEGATIVE, Urine Blood 1+H, Urine Nitrite NEGATIVE, Urine Bilirubin NEGATIVE, Urine Urobilinogen 0.2, Urine Leukocyte Esterase NEGATIVE, Urine WBC (Auto) 0, Urine RBC (Auto) 4H, Urine Hyaline Casts (Auto) 0, Urine Bacteria (Auto) NEGAT BIRDIE, Urine Squamous Epithelial Cells 0, Urine Sperm (Auto) , Coronavirus (COVID- 19)(PCR) NEGATIVE, Influenza Type A (RT-PCR) NEGATIVE, Influenza Type B (RT-PCR) NEGATIVE, Respiratory Syncytial Virus (PCR) NEGATIVE 11/30/20 17:13: Total Bilirubin 0.7, Direct Bilirubin 0.2, Aspartate Amino Transf (AST/SGOT) 42H, Alanine Aminotransferase (ALT/SGPT) 28, Alkaline Phosphatase 142H, Total Protein 8.0, Albumin 2.9L, Albumin/Globulin Ratio 0.6, Erythrocyte Sedimentation Rate 85H, C-Reactive Protein, Quantitative 6.07H 11/30/20 17:39: CBC/BMP Laboratory Tests 11/30/20 10:52 Microbiology Microbiology 11/30/20 Blood Culture, Received Pending 11/30/20 Blood Culture, Received Pending 11/30/20 Respiratory Virus Panel (PCR) (MAINE) - Final, Complete Home Medications Scheduled Amiodarone HCl (Amiodarone HCl) 200 Mg Tablet, 400 MG PO DAILY Apixaban (Eliquis) 2.5 Mg Tablet, 2.5 MG PO BID Aspirin (Aspirin EC) 81 Mg Tablet.dr, 81 MG PO DAILY Atorvastatin Calcium (Atorvastatin Calcium) 20 Mg Tablet, 20 MG PO DAILY Chlorhexidine Gluconate (Peridex) 473 Ml Mouthwash, 15 ML PO TID Ferrous Gluconate (Ferrous Gluconate) 324 Mg Tablet, 324 MG PO DAILY Finasteride (Finasteride) 5 Mg Tablet, 5 MG PO DAILY Fish Oil/Dha/Epa (Fish Oil 1,200 mg Fish Oil) 1 Each Capsule, 1 CAP PO BID Levothyroxine Sodium (Synthroid) 112 Mcg Tablet, 112 MCG PO DAILY Loratadine (Loratadine) 10 Mg Tablet, 10 MG PO DAILY Multivit-Min/FA/Lycopen/Lutein (Centrum Silver Tablet) 1 Each Tablet, 1 TAB PO DAILY Pantoprazole Sodium (Pantoprazole Sodium) 40 Mg Tablet.dr, 40 MG PO DAILY Pregabalin (Pregabalin) 75 Mg Capsule, 75 MG PO QHS Tamsulosin HCl (Flomax) 0.4 Mg Capsule, 0.4 MG PO DAILY once daily 1/2 hour following the same meal each day Torsemide (Torsemide) 10 Mg Tablet, 10 MG PO DAILY Scheduled PRN Fluticasone Propionate (Fluticasone Propionate) 16 Gm [place].susp, 1 SPRAY NARES BID PRN for CONGESTION Allergies Coded Allergies: No Known Allergies (Unverified , 12/29/19) A-FIB/CHADSVASC A-FIB History Current/History of A-Fib/PAF?: No Current PO Anticoag Therapy: No Age/Risk Factor Scoring CHADSVASC: CHADSVASC Response (Comments) Value Age Risk Factor Age >/= 75 years old 2 Gender Risk Factor Male 0 Hx of CHF Yes 1 Hx of HTN Yes 1 Hx of Stroke/TIA/or VTE No 0 Hx of Diabetes No 0 Hx of Vascular Disease No 0 Total 4 Treatment Treatment ordered: Apixaban EDVIN PACHECO MD Nov 30, 2020 19:00
[2020-11-30] MEDS ORDERED: FLUTICASONE PROP 0.05% NASAL SPRAY 16 GM (FLONASE) NARES PRN (19:10)
[2020-11-30] MEDS ORDERED: MAGNESIUM CITRATE 300 ML BTL PO ONE (20:00)
[2020-11-30 20:30] VITALS: BP 157/70
--- NOTE | 2020-11-30 20:35 | REPVR ---
PROCEDURE INFORMATION: Exam: CT Abdomen And Pelvis Without Contrast Exam date and time: 11/30/2020 7:56 PM Age: 85 years old Clinical indication: Abdominal pain; Additional info: Abd pain TECHNIQUE: Imaging protocol: Computed tomography of the abdomen and pelvis without contrast. Radiation optimization: All CT scans at this facility use at least one of these dose optimization techniques: automated exposure control; mA and/or kV adjustment per patient size (includes targeted exams where dose is matched to clinical indication); or iterative reconstruction. Other contrast: Oral; COMPARISON: CT ABD/PEL W/IV CONTRAST ONLY 06/29/2020 10:33 PM FINDINGS: Lungs: Patchy parenchymal infiltrates demonstrated at the left lung base not demonstrated previously and as such likely represent atelectasis. Right lower lobe infiltrate with air bronchograms. Finding has increased in comparison to the prior study suggesting interval atelectasis. Infection to be excluded clinically. Pleural spaces: Small right pleural effusion. Mediastinal space: A small hiatal hernia is present. Liver: Normal. No mass. Gallbladder and bile ducts: There has been a cholecystectomy. Pancreas: There is diffuse pancreatic atrophy. Spleen: Normal. No splenomegaly. Adrenal glands: Normal. No mass. Kidneys and ureters: Bilateral simple renal cysts measure up to 3.9 cm in the left kidney. No follow-up suggested. Bilateral renal sinus lipomatosis. Stomach and bowel: There is increased feces throughout the colon consistent with constipation. Appendix: No evidence of appendicitis. Intraperitoneal space: Unremarkable. No free air. No significant fluid collection. Vasculature: Status post placement of a bifurcating aortic endograft. Proximal and distal anastomoses appear unremarkable. Lymph nodes: Unremarkable. No enlarged lymph nodes. Urinary bladder: Piña catheter within a collapsed urinary bladder. Reproductive: The prostate gland demonstrates moderate hyperplasia. Bones/joints: Status post sternotomy. Severe central spinal stenosis L1-L2. Fusion of L2-L3. Status post bilateral laminectomies at L3, L4 and L5. The spine demonstrates moderate degenerative changes. Soft tissues: There is soft tissue edema demonstrated in the abdominal wall, flanks and buttock regions consistent with anasarca. Other findings: Osteoporosis. IMPRESSION: 1. Right lower lobe infiltrate with air bronchograms. Finding has increased in comparison to the prior study suggesting interval atelectasis. Infection to be excluded clinically. 2. There has been a cholecystectomy. 3. A small hiatal hernia is present. 4. There is diffuse pancreatic atrophy. 5. There is increased feces throughout the colon consistent with constipation. 6. Moderate prostatic hyperplasia. 7. Anasarca. COMMENTS: Consistent with the [place] [employer]'s Incidental Findings Committee white paper (J Am Joan Radiol 2018): Any incidental renal lesion less than 1 cm or classified as too small to characterize, or any incidental cystic renal lesion characterized as simple-appearing, is likely benign. No follow-up imaging is recommended for these lesions per consensus recommendations based on imaging criteria. Electronically signed by: Pablo Trujillo On 11/30/2020 20:35:13 PM
[2020-11-30] MEDS: FINASTERIDE 5 MG TAB PO SCH (20:52)
[2020-11-30] MEDS: PIPERACILLIN/TAZOBACTAM SOD 2.25 GM in D5W MINI-BAG PLUS 50 ML IV SCH (20:52)
[2020-11-30] MEDS: LORATADINE 10 MG TAB PO SCH (20:52)
[2020-11-30] MEDS: APIXABAN 2.5 MG TAB (ELIQUIS) PO SCH (20:52)
[2020-11-30] MEDS: MIRALAX *UNIT DOSE* 17GM PACKET PO SCH (20:53)
[2020-11-30] MEDS ORDERED: PREGABALIN 75 MG CAP(LYRICA) PO SCH (21:00)
[2020-11-30] MEDS ORDERED: TAMSULOSIN 0.4 MG CAP PO SCH (21:00)
[2020-11-30 23:35] LABS: CK-MB VALUE MASS 2.2 NG/ML (<3.6); CPK CREATINE PHOSPHOKINASE 94 U/L (39-308); MB/CK RELATIVE INDEX 2.34 (< OR =4); TROPONIN I < 0.02 NG/ML (< 0.10)
[2020-12-01] MEDS: PIPERACILLIN/TAZOBACTAM SOD 2.25 GM in D5W MINI-BAG PLUS 50 ML IV SCH ×3 (02:26→14:37)
[2020-12-01] MEDS: DOXYCYCLINE HYCLATE 100 MG in D5W MINI-BAG PLUS 100 ML IV SCH (05:20)
[2020-12-01 06:00] VITALS: BP 125/54
[2020-12-01] MEDS ORDERED: LEVOTHYROXINE 112MCG TABLET (0.112MG) PO SCH (06:00)
[2020-12-01 07:03] LABS: BASO % 0.5 % (0.0-1.0); EOS # 0.3 10^3/uL (0.0-0.5); EOS % 3.2 % (0.0-3.0); HEMATOCRIT 31.8 % (42.0-52.0); HEMOGLOBIN 10.1 g/dl (13.5-17.5); LYMPH # 1.2 10^3/uL (1.5-5.0); LYMPH % 13.6 % (24.0-44.0); MEAN CORPUSCULAR HEMOGLOBIN 29.3 pg (27.0-33.0); MEAN CORPUSCULAR HGB CONC 31.8 g/dl (32.0-36.5); MEAN CORPUSCULAR VOLUME 92.2 fl (80.0-96.0); MONO # 0.5 10^3/uL (0.0-0.8); NEUTROPHILS # 6.8 10^3/uL (1.5-8.5); PLATELET COUNT, AUTOMATED 216 10^3/uL (150-450); RED BLOOD COUNT 3.45 10^6/uL (4.30-6.10); WHITE BLOOD COUNT 8.9 10^3/uL (4.0-10.0)
[2020-12-01 07:30] LABS: BLOOD UREA NITROGEN 21 MG/DL (7-18); CALCIUM LEVEL 8.8 MG/DL (8.8-10.2); CARBON DIOXIDE LEVEL 31 MEQ/L (21-32); CHLORIDE LEVEL 105 MEQ/L (98-107); CK-MB VALUE MASS 2.4 NG/ML (<3.6); CPK CREATINE PHOSPHOKINASE 73 U/L (39-308); CREATININE FOR GFR 1.13 MG/DL (0.70-1.30); GLOMERULAR FILTRATION RATE > 60.0 (>35); GLUCOSE, FASTING 98 MG/DL (70-100); MAGNESIUM LEVEL 2.9 MG/DL (1.8-2.4); MB/CK RELATIVE INDEX 3.29 (< OR =4); POTASSIUM SERUM 4.4 MEQ/L (3.5-5.1); SODIUM LEVEL 140 MEQ/L (136-145); TROPONIN I < 0.02 NG/ML (< 0.10)
[2020-12-01] MEDS ORDERED: FERROUS GLUCONATE 324 MG TAB PO SCH (09:00)
[2020-12-01] MEDS ORDERED: MULTIVITAMINS/MINERALS THERAP 1 TAB PO SCH (09:00)
[2020-12-01] MEDS ORDERED: PANTOPRAZOLE 40MG TAB (PROTONIX) PO SCH (09:00)
[2020-12-01] MEDS ORDERED: ATORVASTATIN 20 MG TAB PO SCH (09:00)
[2020-12-01] MEDS ORDERED: TORSEMIDE 10 MG TABLET PO SCH (09:00)
[2020-12-01] MEDS ORDERED: ASPIRIN 81MG ENTERIC TABLET PO SCH (09:00)
[2020-12-01] MEDS ORDERED: AMIODARONE 200 MG TAB (PACERONE) PO SCH (09:00)
[2020-12-01] MEDS: MIRALAX *UNIT DOSE* 17GM PACKET PO SCH (09:00)
[2020-12-01] MEDS ORDERED: DOXY100C3 PO (09:02)
[2020-12-01] MEDS ORDERED: CEFD300CAP PO (09:02)
[2020-12-01] MEDS ORDERED: BACI1CAP PO (09:02)
[2020-12-01] MEDS ORDERED: SENN-52 PO (09:02)
[2020-12-01] MEDS ORDERED: MIRA1POW3 PO (09:02)
[2020-12-01] MEDS: FINASTERIDE 5 MG TAB PO SCH (09:19)
[2020-12-01] MEDS: LORATADINE 10 MG TAB PO SCH (09:19)
[2020-12-01] MEDS: LACTOBACILLUS ACIDOPHILUS CAP (BACID) PO SCH ×3 (09:20→14:37)
[2020-12-01] MEDS: APIXABAN 2.5 MG TAB (ELIQUIS) PO SCH (09:20)
[2020-12-01] MEDS ORDERED: MAGNESIUM CITRATE 300 ML BTL PO ONE (10:00)
--- NOTE | 2020-12-01 10:05 | REP ---
INDICATION: CONSTIPATION COMPARISON: 11/30/2020 TECHNIQUE: Supine view of the abdomen and pelvis. FINDINGS: Visualized portions of the bowel gas pattern are nonspecific and without evidence for obstruction or obvious perforation. Stable postsurgical changes are appreciated including prior cholecystectomy and aortoiliac stent placement. Advanced degenerative changes to the visualized thoracolumbar spine and pelvic osseous structures. IMPRESSION: Relatively nonspecific bowel gas pattern. <Electronically signed by Goyo Alvarado > 12/01/20 1001
--- NOTE | 2020-12-01 12:06 | DSES ---
DISCHARGE SUMMARY DATE OF ADMISSION: 11/30/2020 DATE OF DISCHARGE: 12/01/2020 PRIMARY DISCHARGE DIAGNOSES: 1. Fecal impaction. 2. Urine retention secondary to fecal impaction. 3. Right lower lobe pneumonia. 4. Recurrent aspiration. 5. History of coronary artery disease (CAD) and coronary artery bypass graft (CABG). 6. Diastolic heart failure, compensated. 7. Chronic atrial fibrillation on Eliquis. 8. Hypertension. 9. History of lumbar spinal stenosis, severe. 10. History of bladder cancer status post chemotherapy. DISCHARGE MEDICATIONS: - cefdinir 300 mg twice a day for 10 days - Bacid one tablet with meals and at bedtime for 10 days - doxycycline 100 mg twice a day for 10 days - MiraLax one packet twice a day - Senokot two tables twice a day - amiodarone 400 mg daily - Eliquis 2.5 mg twice a day - aspirin 81 mg daily - atorvastatin 20 mg daily - Peridex 15 mL three times a day - ferrous gluconate 324 mg daily - finasteride 5 mg daily - fish oil one capsule twice a day - fluticasone one spray twice a day as needed - Synthroid 112 mcg daily - loratadine 10 mg daily - multivitamin one tablet daily. - Protonix 40 mg daily - Lyrica 40 mg daily - Tamsulosin 0.4 mg daily - torsemide 10 mg daily DISCHARGE INSTRUCTIONS: Follow up with primary care physician within five days of hospital discharge. HOSPITAL COURSE: This is an 85-year-old male admitted in September for multifocal pneumonia, recurrent aspiration, treated with intravenous (IV) antibiotics, was discharged to acute rehabilitation unit, did well and was discharged home. While patient had been home, he complained of six days of not having a bowel movement since last Thursday, despite taking Senokot, magnesium citrate. He was told by his primary care doctor's triage nurse to come to the emergency room (ER) for further evaluation. Abdominal film did not show any bowel obstruction. There was constipation with a right basilar consolidation. Hospitalist was asked to admit the patient for pneumonia. Patient denied any fever or chills. He had a congested cough, which he has had for a long time, with yellow sputum production, which was unchanged. He was started on doxycycline and Zosyn due to recent hospitalization. Sputum and blood cultures were obtained. He was afebrile with normal white count and was given a bowel regimen with two enemas and magnesium citrate with four bowel movements. [address] abdomen and pelvis showed fecal constipation with right basilar consolidation. Patient did well overnight, had no complaints of shortness of breath, with persistent cough of yellow sputum, which is unchanged from his baseline, without fever or chills. He is discharged in stable condition on a bowel regimen and to complete antibiotics as outpatient. Patient had urine retention with 375 mL postvoid residual. After catheter was placed, 1 liter of urine had come out. Piña catheter was placed overnight and he was continued on Flomax. He was placed on trial of voiding. He recently had a urology evaluation about two weeks ago. He was encouraged to see them again after hospital discharge. PHSYICAL EXAMINATION ON DISCHARGE: VITAL SIGNS: Temperature 97, pulse 50, respiratory rate 17, blood pressure 125/54, 98% on room air. GENERAL: Awake, alert, oriented to person, place and time, answering questions appropriately. HEENT: Dry mucous membranes. Extraocular muscles intact. No jugular venous distention (JVD) or thyromegaly. LUNGS: Diminished, but clear to auscultation. No wheezing or rales. HEART: S1, S2. Irregularly irregular and bradycardic. ABDOMEN: Soft, nontender, nondistended. No costovertebral angle (CVA) tenderness. EXTREMITIES: No cyanosis, clubbing or pitting edema. LABORATORY DATA: Laboratory data, imaging studies and microbiology: Please see the chart. TIME SPENT ON DISCHARGE: 30 minutes. MTDD
[2020-12-01 14:00] VITALS: BP 126/55
[2020-12-01 15:40] LABS: CK-MB VALUE MASS 2.3 NG/ML (<3.6); CPK CREATINE PHOSPHOKINASE 79 U/L (39-308); MB/CK RELATIVE INDEX 2.91 (< OR =4); TROPONIN I < 0.02 NG/ML (< 0.10)
== END 2020-12-01 17:31 | disposition home health service (06) | DRG 388 ==
LOC: M ED 10:08 → M ED INP 16:31 → M MSPAV 20:21
PROVIDERS: ADMIT General Practice; ATTEND General Practice
DX: K56.41 Fecal impaction (principal); J18.9 Pneumonia, unspecified organism; I50.32 Chronic diastolic (congestive) heart failure; I48.20 Chronic atrial fibrillation, unspecified; R33.9 Retention of urine, unspecified; I25.10 Atherosclerotic heart disease of native coronary artery without angina pectoris; I11.0 Hypertensive heart disease with heart failure; M48.061 Spinal stenosis, lumbar region without neurogenic claudication; I16.0 Hypertensive urgency; 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 cardiac pacemaker; Z85.51 Personal history of malignant neoplasm of bladder; Z92.21 Personal history of antineoplastic chemotherapy; Z95.1 Presence of aortocoronary bypass graft; Z98.41 Cataract extraction status, right eye; Z98.42 Cataract extraction status, left eye; Z90.49 Acquired absence of other specified parts of digestive tract; Z20.822 Contact with and (suspected) exposure to COVID-19; Z79.01 Long term (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 anticoagulants; Z79.82 Long term (current) use of aspirin; Z79.899 Other long term (current) drug therapy

== ENCOUNTER → 2020-12-07 | Outpatient (REF) | payer MEDICARE, BC ==
[~2020-12-07] MED LIST changes: +AMIO200T3 PO; +BACI1CAP PO; +DOXY100C3 PO; +FERR324T21 PO; +LORA-674 PO; +MIRA1POW3 PO; +PANT-23 PO; +SENN-52 PO
[2020-12-07 17:38] LABS: PERCENT SATURATION 28.6 % (19.7-50.0)
== END ==
LOC: M LAB REF 16:33
PROVIDERS: ATTEND Internal Medicine
DX: D64.9 Anemia, unspecified (principal)

== ENCOUNTER 2021-02-27 09:17 | Inpatient (IN) | payer MEDICARE, BC ==
[~2021-02-27] VITALS: Ht 182.9 cm; Wt 90.5 kg
[~2021-02-27 09:17] MED LIST changes: -KLOR10TA76 PO; +POTA-136 PO
--- OUTSIDE RECORDS SUMMARY | 2021-02-27 09:27 | CCD | Continuity of Care Document ---
Author Author Trevor GNOZALEZ Organization Unknown Address [address] [facility] [address] [place] [address] Phone [phone] Care Team Providers Care Transport Aide Name Role Phone Soraya Gonzalez DO AUTM Unavailable Adam Llanos M.D. - Graduate Research Assistant AUTM [phone] [facility] AUTM [phone] [facility] Medical Record AUTM [phone] Problems Description No Information Available Social History Type Date Description Comments Sex Unknown ETOH Use Denies alcohol use Tobacco Use Start: Unknown End: Unknown Patient is a former smoker smoked for 50 years x1 lee ann daily ,quit 2002 Allergies and adverse reactions Description No Known Drug Allergies Medications Active Medications SIG Qnty Indications Ordering Provide r Date Colace 100mg Capsules 1 by mouth twice a day Blake Lewis M.D. 12/21/2020 Levothyroxine Sodium 112mcg Tablet s 1 by mouth every day 90tabs Soraya Gonzalez DO 12/13/2020 Magnesium Oxide 400mg Tablets 1 by mouth every day 30tabs Soraya Gonzalez DO 12/07/2020 Senokot 8.6mg Tablets 2 as ne eded Soraya Gonzalez DO 11/28/2020 Torsemide 10mg Tablets 1 every day by mouth 90tabs Soraya Gonzalez DO 09/07/2020 Ferrous Gluconate 324(38Fe) mg Tab lets 1 by mouth every day 30tabs Soraya Gonzalez DO 09/07/2020 Atorvastatin Calcium 20mg Tablets 1 by mouth every day 30tabs Soraya Gonzalez DO 08/21/2020 Centrum Silver 50+Men 50+Men Table ts 1 by mouth every day Soraya Gonzalez DO 02/17/[address] 1 by mouth every day Soraya Gonzalez,DO 02/17/2020 Fish Oil 1200mg Capsules 2 by mouth every day Soraya Gonzalez,DO 02/17/2020 Pantoprazole Sodium 40mg Tablets D R 1 by mouth every day 90tabs Soraya Gonzalez,DO 02/17/2020 Tamsulosin HCL 0.4mg Capsules 1 daily 1/2 hour after same meal [facility] Sor[facility],DO 02/17/2020 Pregabalin 75mg Capsules 1 in pm 90caps Soraya Gonzalez,DO 02/17/2020 Finasteride 5mg Tablets 1 by mouth every day 90tabs Soraya Gonzalez,DO 02/17/2020 Eliquis 2.5mg Tablets 1 by mouth twice a day 180tabs Soraya Gonzalez,DO 02/17/2020 Fluticasone Propionate 50mcg/Act Suspension 2 sprays each nostril daily Unknown Chlorhexidine Gluconate 0.12% Solu tion tid Unknown Amiodarone HCL 200mg Tablets Theryapy Per Cardiology 1 tid 2 Weeks Theb bid X Weeks Then qd Unknown Bacid Tablets every day Unknown Doxycycline Hyclate 100mg Capsules one tab twice a day for 10 days Unknown 00 Cefdinir 300mg Capsules take one capsule by mouth twice a day for 10 days Unknown Miralax 17gm Packet 17 grams in liquid as directed twice as needed Unknown 0 000 History Medications Levothyroxine Sodium 125mcg Tablet s 1 by mouth every day 90tabs Soraya Gonzalez DO 12/07/2020 - 05/2020 Augmentin 500-125mg Tablets 1 by mouth twice a day with food for 10days 20tabs Soraya Goznalez DO 09/27/2020 - 11/01/2020 Augmentin 500-125mg Tablets 1 by mouth twice a day with food for 2 days 4tabs Soraya Gonzalez DO 09/07/2020 - 09/27/2020 Torsemide 20mg Tablets 1 p o daily 30tabs Soraya Gonzalez DO 08/23/2020 - 09/04/2020 Torsemide 10mg Tablets 2 by mouth every day for 3 days then 1 once a day after that. 30tabs Goldmaricarmen welch Carlos 08/21/2020 - 08/23/2020 Medications Administered in Office Medication SIG Qnty Indications Ordering Provider Date Covid-19 vaccine, Unspecified Inj ection Unknown 05/17/2020 Covid-19 vaccine, Unspecified Inj ection Unknown 04/26/2020 Immunizations Description No Information Available Vital Signs Date Vital Result Comment 01/14/2021 2:58pm BP Systolic 132 mmHg BP Diastolic 72 mmHg Heart Rate 68 /min Height 70 inches 5'10" Weight 199.00 lb BMI (Body Mass Index) 28.6 kg/m2 12/07/2020 1:35pm BP Systolic 102 mmHg BP Diastolic 56 mmHg Heart Rate 56 /min Height 70 inches 5'10" Weight 202.00 lb BMI (Body Mass Index) 29.0 kg/m2 Results Test Acquired Date Facility Test Result H/L Range Note Laboratory test finding 01/14/2021 [place] [employer] nisa sahu Kiln Door Builder: Dr Basilio [place] [id number] [phone] B-Type Natriuretic Peptide 651.0 pg/mL High 0.0 - 100.0 Basic Metabolic Panel 01/14/2021 [place] [facility] nisa giles Kiln Door Builder: [place] [address] [phone] Glucose 132 mg/dL High 74 - 99 1 BUN 27 mg/dL High 7 - 18 Creatinine 1.8 mg/dL High 0.6 - 1.3 Sodium 143 mEq/L 136 - 145 Potassium 3.9 mEq/L 3.5 - 5.1 Chloride 105 mEq/L 98 - 107 Carbon Dioxide 29 mEq/L 21 - 32 Calcium 8.8 mg/dL 8.5 - 10.1 GFR 36 mL/min Low >60 GFR 43 mL/min Low >60 2 Laboratory test finding 01/14/2021 [place] [facility] [employer] [facility]: Dr Basilio Sen[place] [id number] [phone] Thyroid Stimulating Hormone 3.74 uIU/mL 0.3 6 - 3.74 Complete Blood Count 01/14/2021 [place] [employer] nisa nicole Kiln Door Builder: [place] [address] [phone] WBC 6.7 x10*3/UL 4.1 - 10.9 3 RBC 3.32 x10*6/UL Low 4.20 - 6.30 Hemoglobin 9.6 g/dL Low 12.0 - 18.0 Hematocrit 28.2 % Low 37.0 - 51.0 MCV 84.9 fL 80.0 - 97.0 MCH 29.0 pg 26.0 - 32.0 MCHC 34.2 g/dL 31.0 - 38.0 RDW 14.4 % High 11.6 - 13.7 PLT 317 x10*3/UL 140 - 440 MPV 8.2 FL 7.8 - 11.0 Lymph % 14.7 % 10.0 - 58.5 Mid % 4.8 % 1.7 - 9.3 Neut % 80.5 % 37.0 - 92.0 Lymph # 1.0 x10*3/UL 0.6 - 4.1 Mid # 0.3 x10*3/UL 0.1 - 0.6 Neut # 5.4 x10*3/UL 2.0 - 7.8 Total Iron Binding Capacit 12/07/2020 [facility] [address] [place] [address] [phone] Iron (Fe) 63 g/dL Low 65-175 Total Iron Binding Capacity 220 g/dL Low 250-450 Percent Saturation 28.6 % Normal 19.7-50.0 Laboratory test finding 12/07/2020 [facility] [address] [place] [address] [phone] Ferritin 219 NG/ML Normal 26-388 4 Complete Blood Count 12/07/2020 [place] [employer] [facility] Kiln Door Builder: [place] [address] [phone] WBC 6.7 x10*3/UL 4.1 - 10.9 5 RBC 3.37 x10*6/UL Low 4.20 - 6.30 Hemoglobin 10.2 g/dL Low 12.0 - 18.0 Hematocrit 29.3 % Low 37.0 - 51.0 MCV 87.0 fL 80.0 - 97.0 MCH 30.2 pg 26.0 - 32.0 MCHC 34.7 g/dL 31.0 - 38.0 RDW 14.9 % High 11.6 - 13.7 PLT 241 x10*3/UL 140 - 440 MPV 8.6 FL 7.8 - 11.0 Lymph % 22.7 % 10.0 - 58.5 Mid % 6.1 % 1.7 - 9.3 Neut % 71.2 % 37.0 - 92.0 Lymph # 1.5 x10*3/UL 0.6 - 4.1 Mid # 0.4 x10*3/UL 0.1 - 0.6 Neut # 4.8 x10*3/UL 2.0 - 7.8 Laboratory test finding 12/07/2020 [place] [employer] Builder: Dr Basilio [place], [place] [id number] [phone] B-Type Natriuretic Peptide 568.0 pg/mL High 0.0 - 100.0 Magnesium 1.7 mg/dL Low 1.8 - 2.4 Comprehensive Chem Profile 12/07/2020 [facility] [employer] Builder: [place] [address] [phone] Glucose 118 mg/dL High 74 - 99 6 BUN 35 mg/dL High 7 - 18 Creatinine 1.8 mg/dL High 0.6 - 1.3 Sodium 141 mEq/L 136 - 145 Potassium 4.2 mEq/L 3.5 - 5.1 Chloride 106 mEq/L 98 - 107 Carbon Dioxide 31 mEq/L 21 - 32 Calcium 9.2 mg/dL 8.5 - 10.1 Alk. Phosphatase 105 mg/dL 46 - 116 Total Bilirubin 0.4 mg/dL 0.2 - 1.0 Ast (Sgot) 20 U/L 15 - 37 Alt (SGPT) 18 U/L 12 - 78 Albumin 2.8 g/dL Low 3.4 - 5.0 Total Protein 7.8 g/dL 6.4 - 8.2 A/G Ratio 0.56 CALC Low 1.00 - 1.90 GFR 36 mL/min Low >60 GFR 43 mL/min Low >60 7 Laboratory test finding 12/07/2020 [place] n[facility] Foreman Kiln Door Builder: [place] [address] [phone] Thyroid Stimulating Hormone 5.46 uIU/mL High 0.3 6 - 3.74 Laboratory test finding 11/30/2020 [facility] [address] [place] [address] [phone] Lipase 172 U/L Normal 73-393 8 NT-Pro BNP 1331 pg/mL High <450 9 Liver Profile 11/30/2020 [facility] nter [address] [place] [address] [phone] Ast/Sgot 34 U/L Normal 7-37 Alt/SGPT 27 U/L Normal 12-78 Alkaline Phosphatase 139 U/L High 45-117 Bilirubin,Total 0.6 mg/dL Normal 0.2-1.0 Bilirubin,Direct 0.2 mg/dL Normal 0.0-0.2 Total Protein 7.8 GM/DL Normal 6.4-8.2 Albumin 2.7 GM/DL Low 3.2-5.2 Albumin/Globulin Ratio 0.5 Normal CBC With Differential 11/30/[address] [address] [phone] White Blood Count 9.2 10 Normal 4.0-10.0 Red Blood Count 3.75 10 Low 4.30-6.10 Hemoglobin 11.1 g/dL Low 13.5-17.5 Hematocrit 34.8 % Low 42.0-52.0 Mean Corpuscular Volume 92.8 fl Normal 80.0-96.0 Mean Corpuscular Hemoglobin 29.6 pg Normal 27.0-33.0 Mean Corpuscular HGB Conc 31.9 g/dL Low 32.0-36.5 Red Cell Distribution Width 15.8 % High 11.5-14.5 Platelet Count, Automated 249 10 Normal 150-450 Neutrophils % 72.3 % High 36.0-66.0 Lymph % 16.9 % Low 24.0-44.0 [place] % 7.2 % Normal 2.0-8.0 Eos % 2.8 % Normal 0.0-3.0 Baso % 0.5 % Normal 0.0-1.0 Immature Granulocyte % 0.3 % Normal 0-3.0 Nucleated Red Blood Cell % 0.0 % Normal 0-0 Neutrophils # 6.7 10 Normal 1.5-8.5 Lymph # 1.6 10 Normal 1.5-5.0 [place] # 0.7 10 Normal 0.0-0.8 Eos # 0.3 10 Normal 0.0-0.5 Baso # 0.1 10 Normal 0.0-0.2 Influenza A/B RSV Covid Amp 11/30/2020 [place] [id number] [phone] Influenza A Amplification NEGATIVE Normal Negati ve 10 Influenza B Amplification NEGATIVE Normal Negative 11 RSV Amplification NEGATIVE Normal Negative 12 Sars Covid-19 Amplification NEGATIVE Normal Negative 13 Ua W/ Reflex To Culture 11/30/[address] [address] [phone] Appearance, Urine RFX CLEAR Normal Clear Color, Urine RFX YELLOW Normal Yellow PH,Urine RFX 8.0 units Normal 5.0-9.0 Specific [place] Ur Auto RFX 1.021 Normal 1.002-1.035 Protein, Urine Auto RFX NEGATIVE mg/dL Normal Negative Glucose, Urine (Ua) Auto RFX NEGATIVE mg/dL Normal Negative Ketone, Urine Auto RFX NEGATIVE mg/dL Normal Negative Urobilinogen, Urine Auto RFX 0.2 mg/dL Normal 0.0-2.0 Bilirubin, Urine Auto RFX NEGATIVE Normal Negative Nitrite, Urine Auto RFX NEGATIVE Normal Negative Leukocyte Esterase Ur Auto RFX NEGATIVE Normal Negative Blood, Urine Blood RFX 1+ High Negative WBC, Urine Auto RFX 0 /HPF Normal 0-3 RBC, Urine Auto RFX 4 /HPF High 0-3 Bacteria, Urine Auto RFX NEGATIVE Normal Negative Squam Epithelial Cell Ur Aurfx 0 /HPF Normal 0-6 Hyaline Cast, Urine Auto RFX 0 /LPF Normal 0-1 Istat Chem8+ Panel 11/30/2020 [facility] Ce nter [address] [place] [address] [phone] iSTAT HCT 33.0 % Low 38.0-51.0 iSTAT Glucose 108 mg/dL High 70-105 iSTAT Sodium 141 mEq/L Normal 136-145 iSTAT Potassium 4.7 mEq/L Normal 3.5-5.1 iSTAT CA++ 4.6 mg/dL Normal 4.5-5.3 iSTAT Chloride 101 mEq/L Normal 98-109 iSTAT Co2 28.0 MM/L High 23.0-27.0 iSTAT BUN 28 mg/dL High 8-26 iSTAT Creatinine 1.4 mg/dL High 0.6-1.3 Laboratory test finding 09/27/2020 [facility] [address] [place], [place] [id number] [phone] Wound Culture FULL REPORT IN L <SEE NOTE> Normal 14 Complete Blood Count 09/27/2020 [place] [employer] Kiln Door Builder: [place] [address] [phone] WBC 6.5 x10*3/UL 4.1 - 10.9 15 RBC 3.88 x10*6/UL Low 4.20 - 6.30 Hemoglobin 11.6 g/dL Low 12.0 - 18.0 Hematocrit 34.1 % Low 37.0 - 51.0 MCV 87.9 fL 80.0 - 97.0 MCH 30.0 pg 26.0 - 32.0 MCHC 34.1 g/dL 31.0 - 38.0 RDW 14.5 % High 11.6 - 13.7 PLT 241 x10*3/UL 140 - 440 MPV 8.3 FL 7.8 - 11.0 Lymph % 40.0 % 10.0 - 58.5 Mid % 7.8 % 1.7 - 9.3 Neut % 52.2 % 37.0 - 92.0 Lymph # 2.6 x10*3/UL 0.6 - 4.1 Mid # 0.5 x10*3/UL 0.1 - 0.6 Neut # 3.4 x10*3/UL 2.0 - 7.8 Comprehensive Chem Profile 09/27/2020 [place] [facility] n[facility] kiran Kil[employer] Door Builder: [place] [address] [phone] Glucose 127 mg/dL High 74 - 99 16 BUN 35 mg/dL High 7 - 18 17 Creatinine 1.4 mg/dL High 0.6 - 1.3 Sodium 140 mEq/L 136 - 145 Potassium 3.7 mEq/L 3.5 - 5.1 Chloride 102 mEq/L 98 - 107 Carbon Dioxide 35 mEq/L High 21 - 32 Calcium 9.3 mg/dL 8.5 - 10.1 Alk. Phosphatase 125 mg/dL High 46 - 116 18 Total Bilirubin 0.6 mg/dL 0.2 - 1.0 Ast (Sgot) 32 U/L 15 - 37 Alt (SGPT) 21 U/L 12 - 78 Albumin 3.2 g/dL Low 3.4 - 5.0 Total Protein 8.4 g/dL High 6.4 - 8.2 A/G Ratio 0.62 CALC Low 1.00 - 1.90 GFR 48 mL/min Low >60 GFR 58 mL/min Low >60 19 Laboratory test finding 09/27/2020 [facility] [address] [place] [address] [phone] C Reactive Protein Quantitativ 0.46 mg/dL High 0 .00-0.30 20 Complete Blood Count 09/07/2020 [place] [employer] [facility] Kiln Door Builder: [place] [address] [phone] WBC 7.9 x10*3/UL 4.1 - 10.9 RBC 3.53 x10*6/UL Low 4.20 - 6.30 Hemoglobin 10.5 g/dL Low 12.0 - 18.0 21 Hematocrit 30.8 % Low 37.0 - 51.0 MCV 87.3 fL 80.0 - 97.0 MCH 29.7 pg 26.0 - 32.0 MCHC 34.1 g/dL 31.0 - 38.0 RDW 13.8 % High 11.6 - 13.7 PLT 307 x10*3/UL 140 - 440 MPV 8.3 FL 7.8 - 11.0 Lymph % 13.9 % 10.0 - 58.5 Mid % 4.5 % 1.7 - 9.3 Neut % 81.6 % 37.0 - 92.0 Lymph # 1.1 x10*3/UL 0.6 - 4.1 Mid # 0.3 x10*3/UL 0.1 - 0.6 Neut # 6.5 x10*3/UL 2.0 - 7.8 Basic Metabolic Panel 09/07/2020 [place] [facility] [employer] Door Builder: [place] [address] [phone] Glucose 109 mg/dL High 74 - 99 22 BUN 14 mg/dL 7 - 18 Creatinine 1.0 mg/dL 0.6 - 1.3 Sodium 141 mEq/L 136 - 145 Potassium 4.2 mEq/L 3.5 - 5.1 Chloride 104 mEq/L 98 - 107 Carbon Dioxide 31 mEq/L 21 - 32 Calcium 8.7 mg/dL 8.5 - 10.1 GFR >= 60 mL/min >60 GFR >= 60 mL/min >60 23 [facility] [address] [place], [place] [id number] [phone] Respiratory Panel This respiratory <SEE NOTE> 24 Basic Metabolic Profile 08/29/2020 [facility] [address] [place] [address] [phone] Glucose, Fasting 110 mg/dL High 70-100 Blood Urea Nitrogen 35 mg/dL High 7-18 Creatinine For GFR 1.45 mg/dL High 0.70-1.30 Glomerular Filtration Rate 49.0 Normal >35 2 5 Sodium Level 142 mEq/L Normal 136-145 Potassium Serum 4.1 mEq/L Normal 3.5-5.1 Chloride Level 107 mEq/L Normal 98-107 Carbon Dioxide Level 29 mEq/L Normal 21-32 Anion Gap 6 mEq/L Low 8-16 Calcium Level 8.4 mg/dL Low 8.8-10.2 Liver Profile 08/29/2020 [facility] [address] [place], [place] [address] [phone] Ast/Sgot 32 U/L Normal 7-37 Alt/SGPT 25 U/L Normal 12-78 Alkaline Phosphatase 154 U/L High 45-117 Bilirubin,Total 1.5 mg/dL High 0.2-1.0 Bilirubin,Direct 0.6 mg/dL High 0.0-0.2 Total Protein 7.3 GM/DL Normal 6.4-8.2 Albumin 3.2 GM/DL Normal 3.2-5.2 Albumin/Globulin Ratio 0.8 Normal Cardiac Marker Panel 08/29/2020 [place] [address] [place] [id number] [phone] CPK Creatine Phosphokinase 39 U/L Normal 39-30 8 CK-MB Value Mass < 1.0 NG/ML Normal <3.6 MB/CK Relative Index 2.56 Normal < Or =4 26 Troponin I < 0.02 NG/ML Normal < 0.10 27 Complete Blood Count 08/21/2020 [place] [employer] Kiln Door Builder: [place] [address] [phone] WBC 5.5 x10*3/UL 4.1 - 10.9 28 RBC 3.93 x10*6/UL Low 4.20 - 6.30 Hemoglobin 11.8 g/dL Low 12.0 - 18.0 Hematocrit 34.8 % Low 37.0 - 51.0 MCV 88.4 fL 80.0 - 97.0 MCH 30.2 pg 26.0 - 32.0 MCHC 34.1 g/dL 31.0 - 38.0 RDW 13.9 % High 11.6 - 13.7 PLT 170 x10*3/UL 140 - 440 MPV 8.8 FL 7.8 - 11.0 Lymph % 29.2 % 10.0 - 58.5 Mid % 7.7 % 1.7 - 9.3 Neut % 63.1 % 37.0 - 92.0 Lymph # 1.6 x10*3/UL 0.6 - 4.1 Mid # 0.5 x10*3/UL 0.1 - 0.6 Neut # 3.4 x10*3/UL 2.0 - 7.8 Laboratory test finding 08/21/2020 [place] [employer] [facility] Kiln Door Builder: [place] [address] [phone] B-Type Natriuretic Peptide 706.0 pg/mL High 0.0 - 100.0 Basic Metabolic Panel 08/21/2020 [place] [facility] [employer] Builder: [place] [address] [phone] Glucose 109 mg/dL High 74 - 99 29 BUN 27 mg/dL High 7 - 18 Creatinine 1.3 mg/dL 0.6 - 1.3 Sodium 143 mEq/L 136 - 145 Potassium 4.7 mEq/L 3.5 - 5.1 Chloride 106 mEq/L 98 - 107 Carbon Dioxide 30 mEq/L 21 - 32 Calcium 9.0 mg/dL 8.5 - 10.1 GFR 52 mL/min Low >60 GFR >= 60 mL/min >60 30 1 100-125 mg/dL PRE-DIABET ES/FASTING >126 mg/dL DIABETES/FASTING 2 CHRONIC KIDNEY DISEASE STAGI NG PER NKF STAGE I & II GFR >= 60 NORMAL TO MILDLY DECREASED STAGE III GFR 30-59 MODERATELY DECREASED STAGE IV GFR 15-29 SEVERELY DECREASED STAGE V GFR <15 VERY LITTLE GFR LEFT ESRD GFR <15 ON SHOPPING INVESTIGATOR 3 NOTE: CBC VERIFIED 4 note:<nlbl:demographic_chang ed> 5 NOTE: CBC VERIFIED 6 100-125 mg/dL PRE-DIABET ES/FASTING >126 mg/dL DIABETES/FASTING 7 CHRONIC KIDNEY DISEASE STAGI NG PER NKF STAGE I & II GFR >= 60 NORMAL TO MILDLY DECREASED STAGE III GFR 30-59 MODERATELY DECREASED STAGE IV GFR 15-29 SEVERELY DECREASED STAGE V GFR <15 VERY LITTLE GFR LEFT ESRD GFR <15 ON SHOPPING INVESTIGATOR 8 note:<nlbl:demographic_chang ed> note:<nlbl:demographic_changed> note:<nlbl:demographic_changed> 9 note:<nlbl:demographic_chang ed> note:<nlbl:demographic_changed> note:<nlbl:demographic_changed> 10 Negative results do not prec lude influenza or RSV virus infection and should not be used as the sole basis for treatment or other patient management decisions. 11 Negative results do not prec lude influenza or RSV virus infection and should not be used as the sole basis for treatment or other patient management decisions. 12 Negative results do not prec lude influenza or RSV virus infection and should not be used as the sole basis for treatment or other patient management decisions. 13 A false negative result may occur if a specimen is improperly collected, transported or handled. False negative results may also occur if inadequate numbers of organisms are present in the specimen. As with any molecular test, mutations within the target regions of Xpert Xpress SARS-CoV-2 could affect primer and/or probe binding resulting in failure to detect the presence of virus. This test cannot rule out diseases caused by other bacterial or viral pathogens. DISCLAIMER: Testing was performed using the [employer] SARS-CoV-2 test. This test was developed and its performance characteristics determined by [employer]. This test has not been FDA cleared or approved. This test has been authorized by FDA under an Emergency Use Authorization (EUA). This test is only authorized for the duration of time the declaration that circumstances exist justifying the authorization of the emergency use of in vitro diagnostic tests for detection of SARS-CoV-2 virus and/or diagnosis of COVID-19 infection under section 564(b)(1) of the Act, 21 U.S.C. 360bbb-3(b)(1), unless the authorization is terminated or revoked sooner. 14 FULL REPORT IN LAB NOTES (eC W and [employer]). ORGANISM 1: STAPHYLOCOCCUS SP COAG NEG QUANTITY OF GROWTH FEW ORGANISM 1: STAPHYLOCOCCUS SP COAG NEG STAPHYLOCOCCUS SP COAG NEG: REACTION ICR (INDUCIBLE CC RESISTANCE) IV ICR TEST RESULT TETRACYCLINE PO 250 mg qid 2 S PENICILLIN G IV 1 mu q6H >=0.5 R PENICILLIN G IV 1 mu q6h >=0.5 R PENICILLIN G PO 250mg q6h fasting >=0.5 R TRIMETHOPRIM/SULFAMETHOXAZOLE IV 160mg TMP & 800mg SMXq6h 160 R TRIMETHOPRIM/SULFAMETHOXAZOLE PO Bactrim DS Bid 160 R ERYTHROMYCIN IV 500mg q6h >=8 R ERYTHROMYCIN PO 500mg q6h >=8 R GENTAMICIN IV 80mg q8h 8 I CLINDAMYCIN IV 600mg q6h >=4 R CLINDAMYCIN PO 150mg q6h >=4 R OXACILLIN IV 500mg q6h >=4 R VANCOMYCIN IV 500mg q8h 1 S LINEZOLID (ZYVOX) IV 600MG Q12HR 2 S LINEZOLID (ZYVOX) PO 600MG Q12HR 2 S An isolate with a (+) POSITIVE ICR test is considered CLINDAMYCIN RESISTANT; however, clindamycin may still be effective in some patients. An isolate with a (-) NEGATIVE ICR test is considered CLIDAMYCIN SENSITIVE. 15 NOTE: CBC VERIFIED 16 100-125 mg/dL PRE-DIABET ES/FASTING >126 mg/dL DIABETES/FASTING 17 NOTE: BUN,CREAT,ALB,T.PROTEIN VERIFIED 18 NOTE: RESULT VERIFIED. 19 CHRONIC KIDNEY DISEASE STAGI NG PER NKF STAGE I & II GFR >= 60 NORMAL TO MILDLY DECREASED STAGE III GFR 30-59 MODERATELY DECREASED STAGE IV GFR 15-29 SEVERELY DECREASED STAGE V GFR <15 VERY LITTLE GFR LEFT ESRD GFR <15 ON SHOPPING INVESTIGATOR 20 note:<nlbl:demographic_chang ed> 21 NOTE: RESULT VERIFIED. 22 100-125 mg/dL PRE-DIABET ES/FASTING >126 mg/dL DIABETES/FASTING 23 CHRONIC KIDNEY DISEASE STAGI NG PER NKF STAGE I & II GFR >= 60 NORMAL TO MILDLY DECREASED STAGE III GFR 30-59 MODERATELY DECREASED STAGE IV GFR 15-29 SEVERELY DECREASED STAGE V GFR <15 VERY LITTLE GFR LEFT ESRD GFR <15 ON SHOPPING INVESTIGATOR 24 This respiratory PCR panel d etects Influenza A H1, H3 and 2009 H1 viruses, Influenza B virus, Resp iratory Syncytial Virus, Human metapneumovirus, Parainfluenza virus 1, 2, 3 and 4, Adenovirus, Rhinovirus/Enterovirus, Coronavirus HKU1, NL63, OC43, 229E and SARS-CoV-2 (COVID 19), Bordetella pertussis, Bordetella parapertussis, Mycoplasma pneumoniae and Chlamydia pneumoniae. NEGATIVE by MULTIPLEXED NUCLEIC ACID PCR SARS-CoV-2 (COVID 19) NEGATIVE - SARS-CoV-2 (COVID19) 25 Units are mL/min/1.73 m2 Chronic Kidney Disease Staging per NKF: Stage I & II GFR >=60 Normal to Mildly Decreased Stage III GFR 30-59 Moderately Decreased Stage IV GFR 15-29 Severely Decreased Stage V GFR <15 Very Little GFR Left ESRD GFR <15 on SHOPPING INVESTIGATOR 26 DIAGNOSIS CRITERIA MMB ng/ml Relative Index (RI) NON-AMI < or = 5 N/A CANTU ZONE > 5 < or = 4 AMI > 5 > 4 27 Troponin I Reference Interva l for [facility] LOCI: 99th Percentile= 0.00-0.045 ng/ml Risk Stratification: <= 0.10 ng/ml Decreased Risk for Adverse Clinical Events. 0.10-1.50 ng/ml Increased Risk for Adv erse Clinical Events. Evaluation of additional criterion and/or repeat testing in 2-6 hours is suggested to rule out myocardial damage. >= 1.50 ng/ml Indicative of Myocardial Injury. 28 NOTE: CBC VERIFIED 29 100-125 mg/dL PRE-DIABET ES/FASTING >126 mg/dL DIABETES/FASTING 30 CHRONIC KIDNEY DISEASE STAGI NG PER NKF STAGE I & II GFR >= 60 NORMAL TO MILDLY DECREASED STAGE III GFR 30-59 MODERATELY DECREASED STAGE IV GFR 15-29 SEVERELY DECREASED STAGE V GFR <15 VERY LITTLE GFR LEFT ESRD GFR <15 ON SHOPPING INVESTIGATOR Procedures Date Code Description Status 01/14/2021 90897 Office/Outpatient Established Mo d MDM 30-39 Min Completed 12/07/2020 18508 Office/Outpatient Established Mo d MDM 30-39 Min Completed 11/09/2020 15682 Trans Care SRV W/I 14D Of DC, Co mm W/I 2 Dys Med Rec Completed 09/07/2020 36838 [place] Cre SRV W/I 7 Days Of DC, C omm W/I 2 Dys Med Rec Completed 09/04/2020 [id number] Diabetic Foot Exam Completed 08/21/2020 52902 Office/Outpatient Established Mo d MDM 30-39 Min Completed Medical Devices Description No Information Available Encounters Type Date Location Provider Dx Diagnosis Office Visit 01/14/2021 3:00p [place] Burton Carter DO I47.2 Ventricular tachycardia I44.2 Atrioventricular block, comp lete 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, 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, 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 E03.9 Hypothyroidism, unspecified E83.42 Hypomagnesemia Office Visit 11/09/2020 11:00a [place] InternBurton sahugs ,DO I47.2 Ventricular tachycardia I48.0 Paroxysmal atrial fibrillati on Z79.01 residential (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 a nticoagulants I73.9 Peripheral vascular disease, unspecified I44.2 Atrioventricular block, comp lete 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, 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 E03.9 Hypothyroidism, unspecified Office Visit 09/07/2020 11:00a [facility] PRegina Gonzalez ,DO J18.9 Pneumonia, unspecified organism I73.9 Peripheral vascular disease, unspecified I50.41 Acute combined systolic and diastolic (congestive) hrt fail I48.0 Paroxysmal atrial fibrillati on Z79.01 residential (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 a nticoagulants I44.2 Atrioventricular block, comp lete 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 M21.372 Foot drop, left foot N40.0 Benign prostatic hyperplasia without lower urinry tract symp Office Visit 08/21/2020 2:00p [facility], PRegina Gonzalez ,DO I73.9 Peripheral vascular disease, unspecified M21.372 Foot drop, left foot 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 I50.33 Acute on chronic diastolic ( congestive) heart failure I48.0 Paroxysmal atrial fibrillati on 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 Assessments Date Code Description Provider 01/14/2021 I47.2 Ventricular tachycardia Soraya chapman,DO 01/14/2021 I44.2 Atrioventricular block, complete Soraya Gonzalez,DO 01/14/2021 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r Melida Gonzalez,DO 01/14/2021 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 Soraya Gonzalez,DO 01/14/2021 M48.062 Spinal stenosis, lumbar region w ith neurogenic claudication Soraya Gonzalez,DO 01/14/2021 E03.9 Hypothyroidism, unspecified Antoni Gonzalez,DO 01/14/2021 D50.9 Iron deficiency anemia Soraya infante,DO 01/14/2021 E83.42 Hypomagnesemia Soraya Gonzalez,DO 01/14/2021 I48.0 Paroxysmal atrial fibrillation L yuliet Gonzalez,DO 01/14/2021 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 Soraya Carlos,DO 12/07/2020 K59.00 Constipation Soraya [place],DO 12/07/2020 J18.9 Pneumonia Soraya Carlos,DO 12/07/2020 I47.2 Ventricular tachycardia Soraya Bhanu ggs,DO 12/07/2020 D50.9 Iron deficiency anemia Soraya Mendiola gs,DO 12/07/2020 I44.2 Atrioventricular block, complete Soraya Carlos,DO 12/07/2020 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r La reinaa Carlos,DO 12/07/2020 Z79.01 residential (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 antic oagulants Soraya Carlos,DO 12/07/2020 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 Soraya Carlos,DO 12/07/2020 M48.062 Spinal stenosis, lumbar region w ith neurogenic claudication Soraya Carlos,DO 12/07/2020 E03.9 Hypothyroidism, unspecified Antoni a Carlos,DO 12/07/2020 E83.42 Hypomagnesemia Soraya Gonzalez,DO 11/09/2020 I47.2 Ventricular tachycardia Soraya Bhanu ggs,DO 11/09/2020 I48.0 Paroxysmal atrial fibrillation L yuliet Gonzalez,DO 11/09/2020 Z79.01 residential (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 antic oagulants Soraya Carlos,DO 11/09/2020 I73.9 Peripheral vascular disease, uns pecified Soraya Carlos,DO 11/09/2020 I44.2 Atrioventricular block, complete Soraya Carlos,DO 11/09/2020 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r La ura Carlos,DO 11/09/2020 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 Soraya Carlos,DO 11/09/2020 M48.062 Spinal stenosis, lumbar region w ith neurogenic claudication Soraya Carlos,DO 11/09/2020 E03.9 Hypothyroidism, unspecified Antoni a Carlos,DO 09/07/2020 J18.9 Pneumonia, unspecified organism Soraya Gonzalez,DO 09/07/2020 I73.9 Peripheral vascular disease, uns pecified Soraya Gonzalez,DO 09/07/2020 I50.41 Acute combined systo lic (congestive) and diastolic (congestive) heart failure Soraya Gonzalez,DO 09/07/2020 I48.0 Paroxysmal atrial fibrillation L yuliet Gonzalez,DO 09/07/2020 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 Soraya Gonzalez,DO 09/07/2020 I44.2 Atrioventricular block, complete Soraya Gonzalez,DO 09/07/2020 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r Melida Gonzalez,DO 09/07/2020 M21.372 Foot drop, left foot Soraya Gonzalez ,DO 09/07/2020 N40.0 Benign prostatic hyp erplasia without lower urinary tract symptoms Soraya Gonzalez,DO 08/21/2020 I73.9 Peripheral vascular disease, uns pecified Soraya Gonzalez,DO 08/21/2020 M21.372 Foot drop, left foot Soraya Gonzalez ,DO 08/21/2020 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 09/27/2020 - Soraya Gonzalez DO* All * New Medication:* Augmentin 500-125 mg - 1 by mouth twice a day with food for 10days Functional Status Description No Information Available Mental Status Description No Information Available Referrals Refer to Reason for Referral Status Appt Date Roger Case MD CONSULT FOR PVD Patient Notified 10/10/2020 [facility] [address] ,[address] [place] [address] [phone]
--- OUTSIDE RECORDS SUMMARY | 2021-02-27 09:27 | CCD | Continuity of Care Document ---
Author Author Trevor LLANOS MD Organization Unknown Address [place] [address] Phone [phone] Care Team Providers Care Financial Systems Administrator Name Role Phone Soraya Gonzalez AUTM [phone] Matt Bolaños MD LOCATED [facility]IN [facility] AUTM [phone] Problems Active Problems Provider Date Permanent atrial fibrillation Adam Llanos MD Onset: 02/2020 Sinus node dysfunction Adam Llanos MD Onset: 02/22/2020 Chronic combined systolic and diastolic heart failure Adam Llanos MD Onset: 02/22/2020 Electrocardiogram abnormal Adam Llanos MD Onset: 2019 Multi vessel coronary artery disease Adam Llanos MD Ons et: 02/22/2020 Benign hypertensive heart disease Adam Llanos MD Onset: 02/22/2020 Paroxysmal ventricular tachycardia NEGAR Nichole On set: 11/02/2020 Dietary management surveillance NEGAR Nichole Onset : 09/12/2020 Cardiac pacemaker in situ NEGAR Nichole Onset: 08/12 Complete atrioventricular block Adam Llanos MD Onset: 0 06/06/2020 Aneurysm of thoracic aorta Adam Llanos MD Onset: 2020 Mitral valve disorder Adam Llanos MD Onset: 06/06/2020 Social History Type Date Description Comments Sex Unknown ETOH Use Does not consume alcohol Tobacco Use Start: Unknown End: Unknown Patient is a former smoker started at age 16, at most 1 ppd, quit 2001 Smoking Status Reviewed: 09/12/20 Patient is a former smoker st arted at age 16, at most 1 ppd, quit 2001 Exercise Type/Frequency Does not exercise curren tly Exercise Type/Frequency Stretch Bands Exercises and at home PT exercises - every day Exercise Limitations Imbalance Exercise Limitations Weakness Allergies and adverse reactions Active Allergies Criticality Reaction | Severity Comments Date Amoxicillin Unable to assess criticality 875 mg dose - severe uncontrollable diarrhea 09/11/2020 Medications Active Medications SIG Qnty Indications Ordering Provide r Date Colace 100mg Capsules 1 by mouth twice a day Unknown 12/26/2020 Miralax 17GM/Scoop Powder 1 tablespoon every morning, as directed, as needed Unknown 12/26/2020 Amiodarone HCL 200mg Tablets take (1) 200 mg tablet by mouth daily 90tabs I47.2 Adam Llanos MD 10/12 Fluticasone Propionate Nasal [place] 24- H our 50mcg/Act Suspension 1 spray in each nostril daily Unknown 11/01/2020 Loratadine 10mg Capsules 1 by mouth every day Unknown 11/01/2020 Atorvastatin Calcium 20mg Tablets 1 by mouth every day Soraya Gonzalez, DO 09/11/2020 Ferrous Gluconate 324(38Fe) mg Tab lets 1 by mouth once a day Soraya Gonzalez, Torsemide 10mg Tablets 1 by mouth every day Soraya Gonzalez, DO 09/11/2020 Nystatin Powder apply to groin and back of thighs as needed, as directed Unknown 09/11/[address] 1 by mouth every day Unknown 02/21/2020 Tamsulosin HCL 0.4mg Capsules 1 by mouth every day Unknown 02/21/2020 Pantoprazole Sodium 40mg Tablets D R 1 by mouth every day Unknown 02/21/2020 Eliquis 2.5mg Tablets 1 by mouth twice a day 180tabs Adam Llanos MD 02/21/2020 Multivitamin Adult Tablets 1 by mouth every day Unknown 02/21/2020 Levothyroxine Sodium 112mcg Tablet s 1 by mouth every day Unknown 02/21/2020 Finasteride 5mg Tablets 1 by mouth every day Unknown 02/21/2020 Lyrica 75mg Capsules 1 by jonathan th daily Unknown 02/20/2020 [place] 3 1000mg Capsules 1 by mouth tid Unknown 02/20/2020 Immunizations Description No Information Available Vital Signs Date Vital Result Comment 11/02/2020 8:14am Weight 204.00 lb Height 72 inches 6'0" BMI (Body Mass Index) 27.7 kg/m2 09/12/2020 1:03pm Weight 209.00 lb Home Weight 208lb yesterday Height 72 inches 6'0" BMI (Body Mass Index) 28.3 kg/m2 Heart Rate 70 /min BP Systolic Sitting 110 mmHg Ra, large cuff BP Diastolic Sitting 64 mmHg Ra, large cuff Results Test Acquired Date Facility Test Result H/L Range Note CBC without Differential 12/07/2020 [facility] ([facility] - White Blood Count 6.7 4.1-10.9 Red Blood Count 3.37 Low 4.20-6.30 Platelets 241 140-440 Hemoglobin 10.2 Low 12.0-18.0 Hematocrit 29.3 Low 37.0-51.0 CMP 12/07/2020 [facility] ([facility])- - Albumin Serum/Plasma 2.8 Alt - SGPT 18 Calcium Ser/Plasma Mass/Vol 9.2 Carbon Dioxide Ser/Plasm 31 Chloride Serum/Plasma 106 Alkaline Phosphatase 105 Potassium 4.2 Protein Total 7.6 Sodium 141 Ast - Sgot 20 BUN - Urea Nitrogen 35 Glucose 118 High 74-99 Creatinine For GFR 1.8 Laboratory test finding 12/07/2020 [facility] (315)- - Thyroid Stimulating Hormone 5.46 Magnesium Level 1.7 NT Probnp QN Ser/Plas 568.0 CMP 11/02/2020 [facility] nter [phone] Glucose, Fasting 114 mg/dL High 70-100 Blood Urea Nitrogen 21 mg/dL High 7-18 Creatinine For GFR 1.24 mg/dL Normal 0.70-1.30 Glomerular Filtration Rate 58.7 Normal >35 1 Sodium Level 143 mEq/L Normal 136-145 Potassium Serum 5.1 mEq/L Normal 3.5-5.1 2 Chloride Level 108 mEq/L High 98-107 Carbon Dioxide Level 28 mEq/L Normal 21-32 Anion Gap 7 mEq/L Low 8-16 Calcium Level 9.5 mg/dL Normal 8.8-10.2 Ast/Sgot 43 U/L High 7-37 Alt/SGPT 28 U/L Normal 12-78 Alkaline Phosphatase 138 U/L High 45-117 Bilirubin,Total 0.5 mg/dL Normal 0.2-1.0 Total Protein 7.9 GM/DL Normal 6.4-8.2 Albumin 3.2 GM/DL Normal 3.2-5.2 Albumin/Globulin Ratio 0.7 Normal Laboratory test finding 11/02/2020 [facility] [phone] Magnesium Level 2.2 mg/dL Normal 1.8-2.4 3 CBC without Differential 09/02/2020 [facility] - not inter faced (315)- - White Blood Count 9.2 5.0-10.0 Red Blood Count 3.25 Low 4.00-5.40 Platelets 159 Low 172-450 Hemoglobin 9.7 Hematocrit 30.5 CMP 09/02/2020 [facility] - not interfaced (315)- - Albumin Serum/Plasma 2.4 Alt - SGPT 52 Calcium Ser/Plasma Mass/Vol 8.7 Carbon Dioxide Ser/Plasm 27 Chloride Serum/Plasma 107 Alkaline Phosphatase 211 Potassium 3.9 Protein Total 6.4 Sodium 140 Ast - Sgot 83 BUN - Urea Nitrogen 41 Glucose 122 High 83-110 Creatinine For GFR 1.45 1 Units are mL/min/1.73 m2 Chronic Kidney Disease Staging per NKF: Stage I & II GFR >=60 Normal to Mildly Decreased Stage III GFR 30-59 Moderately Decreased Stage IV GFR 15-29 Severely Decreased Stage V GFR <15 Very Little GFR Left ESRD GFR <15 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 Testing was performed on a SLIGHTLY hemolyzed specimen. Suggest recollection of specimen for more accurate test results. 3 note:<nlbl:demographic_chang ed> Procedures Date Code Description Status 12/26/2020 55704 Chronic Care MGMT 20 Mins Clinical Staff Time Per Calendar Month Completed 12/26/2020 06528 Chronic Care Management Services Ea Addl 20 Min Completed 12/05/2020 92300 Remote Interrogate D evice Eval Cardioverter/Defibrillator-90 Days Completed 12/05/2020 76998 Remote Interrogation Device Eval Pacemaker System Up To 90 Days Completed 11/13/2020 85404 Chronic Care MGMT 20 Mins Clinical Staff Time Per Calendar Month Completed 11/02/2020 03408 Office/Outpatient Established Mo d MDM 30-39 Min Completed 10/25/2020 72452 Chronic Care MGMT 20 Mins Clinical Staff Time Per Calendar Month Completed 09/17/2020 57963 Chronic Care MGMT 20 Mins Clinical Staff Time Per Calendar Month Completed 09/12/2020 19234 Office/Outpatient Established Mo d MDM 30-39 Min Completed 09/12/2020 29551 ECG 12-Lead Completed 09/05/2020 02205 Pacer Programming Dual Leads Com pleted 08/17/2020 63243 Chronic Care MGMT 20 Mins Clinical Staff Time Per Calendar Month Completed Medical Devices Description No Information Available Encounters Type Date Location Provider Dx Diagnosis Office Visit 12/26/2020 8:00p Main Office Adam Llanos MD I25.10 Athscl heart disease of [place] coronary artery w/o ang pctrs 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 Office Visit 11/13/2020 5:11p Main Office Adam Llanos MD I48.21 Permanent atrial fibrillation I11.0 Hypertensive heart disease w [facility] heart failure Office Visit 11/02/2020 8:00a Main Office NEGAR Nichole I47 .2 Ventricular tachycardia Office Visit 10/25/2020 5:51p Main Office Adam Llanos MD I47.2 Ventricular tachycardia I48.21 Permanent atrial fibrillatio n Office Visit 09/17/2020 1:44p Main Office Adam Llanos MD I48.21 Permanent atrial fibrillation I11.0 Hypertensive heart disease w [facility] heart failure Office Visit 09/12/2020 1:00p Main Office NEGAR Nichole I48 .21 Permanent atrial fibrillation 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 I11.0 Hypertensive heart disease w [facility] heart failure I25.10 Athscl heart disease of [place] coronary artery w/o ang pctrs I44.2 Atrioventricular block, comp lete 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 I71.2 Thoracic aortic aneurysm, wi thout rupture I34.0 Nonrheumatic mitral (valve) insufficiency R94.31 Abnormal electrocardiogram [ ECG] [EKG] Z71.3 Dietary counseling and surve illance Office Visit 08/17/2020 3:10p Main Office Adam Llanos MD I48.21 Permanent atrial fibrillation 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 Assessments Date Code Description Provider 12/26/2020 I25.10 Atherosclerotic hear t disease of [place] coronary artery without angina pectoris Adam Llanos MD 12/26/2020 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 Adam Llanos MD 12/05/2020 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r [facility] 11/13/2020 I48.21 Permanent atrial fibrillation Gregory Llanos MD 11/13/2020 I11.0 Hypertensive heart disease with heart failure Adam Llanos MD 11/02/2020 I47.2 Ventricular tachycardia NEGAR Gant 10/25/2020 I47.2 Ventricular tachycardia Adam Llanos MD 10/25/2020 I48.21 Permanent atrial fibrillation Gregory Llanos MD 09/17/2020 I48.21 Permanent atrial fibrillation Gregory Llanos MD 09/17/2020 I11.0 Hypertensive heart disease with heart failure Adam Llanos MD 09/12/2020 I48.21 Permanent atrial fibrillation Ca NEGAR Moura 09/12/2020 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 NEGAR Nichole 09/12/2020 I11.0 Hypertensive heart disease with heart failure NEGAR Nichole 09/12/2020 I25.10 Atherosclerotic hear t disease of [place] coronary artery without angina pectoris NEGAR Nichole 09/12/2020 I44.2 Atrioventricular block, complete NEGAR Nichole 09/12/2020 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r NEGAR Guzman 09/12/2020 I71.2 Thoracic aortic aneurysm, withou t rupture NEGAR Nichole 09/12/2020 I34.0 Nonrheumatic mitral (valve) insu fficiency NEGAR Nichole 09/12/2020 R94.31 Abnormal electrocardiogram [ECG] [EKG] NEGAR Nichole 09/12/2020 Z71.3 Dietary counseling and surveilla nce NEGAR Nichole 09/05/2020 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r NEGAR Guzman 08/17/2020 I48.21 Permanent atrial fibrillation Gregory Llanos MD 08/17/2020 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 Adam Lalnos MD Plan of Treatment Future Appointment(s):* 03/06/2021 7:00 am - [facility] at Main Office * 03/14/2021 10:45 am - NEGAR Nichole at Main Office * 07/29/2021 9:15 am - Samantha Mancilla PA-C at Main Office 11/02/2020 - NEGAR Nichole* I47.2 Ventricular tachycardia* New Medication:* Amiodarone HCL 200 mg - take (1) 200 mg tablet by mouth daily * Recommendations:* At this time patient has opted for medical therapy Amiodarone Instructions: Take (1) 200 mg tablet three times daily for 2 weeks Take (1) 200 mg tablet twice daily for 4 weeks Take (1) 200 mg tablet once daily indefinitely Please obtain lab work Will continue to monitor pacemaker reports closely Patient and his are agreeable to seek urgent medical attention with the onset of any similar symptoms * All * Follow up:* As scheduled Functional Status Functional Condition Comment Date Status Independent with all ADL's Activ e Requires assistance with ambulating with walker Active Requires assistance with dressing with shoes and socks only Active Mental Status Description No Information Available Referrals Description No Information Available
--- OUTSIDE RECORDS SUMMARY | 2021-02-27 09:27 | CCD | Continuity of Care Document ---
Author Author Trevor LLANOS MD Organization Unknown Address [place] [address] Phone [phone] Care Team Providers Care Garbage Collector Supervisor Name Role Phone Soraya Gonzalez AUTM [phone] Matt Bolaños MD [facility] AUTM Problems Active Problems Provider Date Permanent atrial [...] Adam Llanos MD 10/12 Fluticasone Propionate Nasal [place] 24- H our 50mcg/Act Suspension 1 spray [...] 1 by jonathan th daily Unknown 02/20/2020 [employer] 3 1000mg Capsules 1 by mouth tid [...] NT Probnp QN Ser/Plas 568.0 CMP 11/02/2020 [facility] nter [phone] Glucose, Fasting 114 mg/dL High 70-100 Blood [...] Ratio 0.7 Normal Laboratory test finding 11/02/2020 [facility] [phone] Magnesium Level 2.2 mg/dL Normal 1.8-2.4 3 [...] Little GFR Left ESRD GFR <15 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 Testing was performed on a SLIGHTLY hemolyzed specimen. Suggest recollection of specimen for more accurate test results. 3 note:<nlbl:demographic_chang ed> Procedures Date Code Description Status 12/26/2020 61301 Chronic Care MGMT 20 Mins Clinical Staff Time Per Calendar Month Completed 12/26/2020 11268 Chronic Care Management Services Ea Addl 20 Min Completed 12/05/2020 09655 Remote Interrogate D evice Eval Cardioverter/Defibrillator-90 Days Completed 12/05/2020 99320 Remote Interrogation Device Eval Pacemaker System Up To 90 Days Completed 11/13/2020 11045 Chronic Care MGMT 20 Mins Clinical Staff Time Per Calendar Month Completed 11/02/2020 26983 Office/Outpatient Established Mo d MDM 30-39 Min Completed 10/25/2020 38211 Chronic Care MGMT 20 Mins Clinical Staff Time Per Calendar Month Completed 09/17/2020 80442 Chronic Care MGMT 20 Mins Clinical Staff Time Per Calendar Month Completed 09/12/2020 29119 Office/Outpatient Established Mo d MDM 30-39 Min Completed 09/12/2020 76249 ECG 12-Lead Completed 09/05/2020 27586 Pacer Programming Dual Leads Com pleted 08/17/2020 97511 Chronic Care MGMT 20 Mins Clinical Staff Time Per Calendar Month Completed Medical Devices Description No Information Available Encounters Type Date Location Provider Dx Diagnosis Office Visit 12/26/2020 8:00p Main Office Adam Llanos MD I25.10 Athscl heart disease of [place] coronary artery w/o ang pctrs 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 Office Visit 11/13/2020 5:11p Main Office Adam Llanos MD I48.21 Permanent atrial fibrillation I11.0 Hypertensive heart disease w [facility] heart failure Office Visit 11/02/2020 8:00a Main Office NEGAR Nichole I47 .2 Ventricular tachycardia Office Visit 10/25/2020 5:51p Main Office Adam Llanos MD I47.2 Ventricular tachycardia I48.21 Permanent atrial fibrillatio n Office Visit 09/17/2020 1:44p Main Office Adam Llanos MD I48.21 Permanent atrial fibrillation I11.0 Hypertensive heart disease w [facility] heart failure Office Visit 09/12/2020 1:00p Main Office NEGAR Nichole I48 .21 Permanent atrial fibrillation 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 I11.0 Hypertensive heart disease w [facility] heart failure I25.10 Athscl heart disease [...] 12/26/2020 I25.10 Atherosclerotic hear t disease of [place] coronary artery without angina pectoris Adam Llanos [...] 09/12/2020 I25.10 Atherosclerotic hear t disease of [place] coronary artery without angina pectoris NEGAR Nichole [...] diastolic (congestive) heart failure Adam Llanos MD Plan of Treatment Future Appointment(s):* 03/06/2021 [...]
--- OUTSIDE RECORDS SUMMARY | 2021-02-27 09:28 | CCD | Continuity of Care Document ---
Author Author Trevor JACOB D.O. [place] [address] Phone [phone] Care Team Providers Care Program Host Name Role Phone Soraya Gonzalez D.O. AUTM [phone] AUTM Unavailable Problems Active Problems Provider Date Centriacinar emphysema Boris Jacob D.O. Onset: 12/13/2020 Abnormal findings on diagnostic imaging of lung Boris Jacob D.O. Onset: 12/13/2020 Bronchiolectasis Boris Jacob D.O. Onset: 12/13/2020 Ex-smoker Boris Jacob D.O. Onset: 12/13/2020 Pulmonary function studies abnormal Boris Jacob D.O. Onse t: 12/13/2020 Social History Type Date Description Comments Sex Unknown Tobacco Use Start: Unknown End: Unknown Patient is a former smoker Smoking Status Reviewed: 12/13/20 Patient is a former smoker Allergies, Adverse Reactions, Alerts Description No Known Drug Allergies Medications Active Medications SIG Qnty Indications Ordering Provide r Date Albuterol Sulfate (2 .5mg/3ML) 0.083% Nebulizer use 1 vial in nebulizer 4 times daily - and as needed 360ml R94.2 Boris Jacob D.O. 12/13/2020 Fish Oil 1 tab by mouth every day Unknown Aspirin [address] take 1 tab by mouth daily Unknown Lyrica 75mg Capsules 1 cap by mouth every day 60caps Unknown Finasteride 5mg Tablets 1 tab by mouth every day Unknown Levothyroxine Sodium 112mcg Capsul es 1 tab by mouth every day Unknown Eliquis 2.5mg Tablets 1 tab by mouth twice a day A Fib DR [place] 180tabs Unknown Tamsulosin HCL 0.4mg Capsules 1 tab by mouth every day Unknown Pantoprazole Sodium 40mg Tablets D R 1 by mouth every day Unknown Amiodarone HCL 200mg Tablets 1 tab by mouth every day Unknown Atorvastatin Calcium 20mg Tablets 1 tab by mouth every day Unknown Loratadine 10mg Tablets 1 tab by mouth every day 90tabs Unknown Fluticasone Propionate 50mcg/Act Suspension 1 spray to each nostril twice daily Unkno wn Torsemide 10mg Tablets 1 tab by mouth every day Unknown Immunizations Description No Information Available Vital Signs Date Vital Result Comment 12/13/2020 9:56am BP Systolic 110 mmHg BP Diastolic 70 mmHg Heart Rate 50 /min O2 % BldC Oximetry 98 % Height 71 inches 5'11" Weight 204.00 lb PT States BMI (Body Mass Index) 28.4 kg/m2 [place] Body Weight 172 lb Weight 92.534 kg BSA (Body Surface Area) 2.13 m2 07/10/2020 3:16pm BP Systolic 157 mmHg BP Diastolic 74 mmHg Heart Rate 58 /min O2 % BldC Oximetry 100 % Respiratory Rate 16 /min Body Temperature 97.2 F Height 71 inches 5'11" Weight 214.00 lb BMI (Body Mass Index) 29.8 kg/m2 [place] Body Weight 172 lb Weight 97.070 kg BSA (Body Surface Area) 2.17 m2 Results Description No Information Available Procedures Date Code Description Status 07/10/2020 33277 Office/Outpatient New Moderate M DM 45-59 Minutes Completed Medical Devices Description No Information Available Encounters Description No Information Available Assessments Date Code Description Provider 12/13/2020 R94.2 Abnormal results of pulmonary fu nction studies Boris Jacob D.O. 12/13/2020 Z87.891 Personal history of nicotine dep endence Boris Jacob D.O. 12/13/2020 J47.9 Bronchiectasis, uncomplicated Ro jessica Jacob D.O. 12/13/2020 R91.8 Other nonspecific abnormal findi ng of lung field Boris Jacob D.O. 12/13/2020 J43.2 Centrilobular emphysema Boris alfaro D.O. 07/10/2020 M25.572 Pain in left ankle and joints of left foot Mark Charles MD 07/10/2020 S90.812A Abrasion, left foot, initial enc ounter Mark Charles MD 07/10/2020 M79.89 Other specified soft tissue diso rders Mark Charles MD 07/10/2020 W19.xxxA Unspecified fall, initial encoun ter Mark Charles MD Plan of Treatment Future Appointment(s):* 03/06/2021 10:30 am - Boris Jacob D.O. at [facility] Pulmonary/Thoracic 12/13/2020 - Boris Jacob D.O.* R94.2 Abnormal results of pulmonary function studies * Z87.891 Personal history of nicotine dependence * J47.9 Bronchiectasis, uncomplicated * R91.8 Other nonspecific abnormal finding of lung field * J43.2 Centrilobular emphysema * * New Medication:* Albuterol Sulfate (2.5 mg/3ML) 0.083% * Follow up:* Follow up end of February with chest ct Functional Status Functional Condition Comment Date Status Independent with all ADL's Activ e Mental Status Mental Condition Comment Date Status None Active Referrals Description No Information Available
--- OUTSIDE RECORDS SUMMARY | 2021-02-27 09:28 | CCD | Continuity of Care Document ---
Author Author Trevor JACOB D.O. [place] [address] Phone [phone] Care Team Providers Care Domestic Technician Name Role Phone Soraya Gonzalez D.O. AUTM [phone] AUTM Unavailable Problems Active Problems Provider Date [...] 4 times daily - and as needed J47.9 bronchiectasis 360ml R94.2 Boris Jacob D.O. 12/13/2020 Fish [...] States BMI (Body Mass Index) 28.4 kg/m2 [place] Body Weight 172 lb Weight 92.534 kg BSA (Body Surface Area) 2.13 m2 07/10/2020 3:16pm BP Systolic 157 mmHg BP Diastolic 74 mmHg Heart Rate 58 /min O2 % BldC Oximetry 100 % Respiratory Rate 16 /min Body Temperature 97.2 F Height 71 inches 5'11" Weight 214.00 lb BMI (Body Mass Index) 29.8 kg/m2 [place] Body Weight 172 lb Weight 97.070 kg BSA (Body Surface Area) 2.17 m2 Results Description No Information Available Procedures Date Code Description Status 12/13/2020 22104 Office/Outpatient Established Mo d MDM 30-39 Min Completed 07/10/2020 62529 Office/Outpatient New Moderate M DM 45-59 Minutes Completed Medical Devices Description No Information Available Encounters Type Date Location Provider Dx Diagnosis Office Visit 12/13/2020 10:00a Daily Pulmonary/Thoracic Boris espinoza, D.O. R94.2 Abnormal results of pulmonary function s andira Z87.891 Personal history of nicotine dependence J47.9 Bronchiectasis, uncomplicate d R91.8 Other nonspecific abnormal f inding of lung field J43.2 Centrilobular emphysema Assessments Date Code Description Provider 12/13/2020 R94.2 [...] 10:30 am - Boris Jacob D.O. at [facility] Pulmonary/Thoracic 12/13/2020 - Boris Jacob D.O.* R94.2 Abnormal results of pulmonary function studies * Z87.891 Personal history of nicotine dependence * J47.9 Bronchiectasis, uncomplicated * R91.8 Other nonspecific abnormal finding of lung field * J43.2 Centrilobular emphysema * * New Medication:* Albuterol Sulfate (2.5 mg/3ML) 0.083% * Follow up:* Follow up end of February with chest CT. Functional Status Functional Condition Comment Date Status Independent with all ADL's Activ e Mental Status Mental Condition Comment Date Status None Active Referrals Description No Information Available
--- OUTSIDE RECORDS SUMMARY | 2021-02-27 09:28 | CCD | Continuity of Care Document ---
Author Author Trevor GONZALEZ Organization Unknown Address [address] [facility] [address] [place] [address] Phone [phone] Care Team Providers Care Supplier Quality Engineer Name Role Phone Soraya Gonzalez DO AUTM Unavailable Adam Llanos M.D. - Optical Coating Technician AUTM [phone] [facility] AUTM [phone] SSV Medical Record AUTM [phone] Problems Description No Information Available Social History [...] 1 daily 1/2 hour after same meal [facility] Soraya Gonzalez,DO 02/17/2020 Pregabalin 75mg Capsules 1 [...] day with food for 10days 20tabs Soraya Gonzalez DO 09/27/2020 - 11/01/2020 Augmentin 500-125mg Tablets 1 by mouth twice a day with food for 2 days 4tabs Soraya Gonzalez DO 09/07/2020 - 09/27/2020 Torsemide 20mg Tablets 1 p o daily 30tabs Soraya Gonzalez DO 08/23/2020 - 09/04/2020 Torsemide 10mg Tablets 2 by mouth every day for 3 days then 1 once a day after that. 30tabs Gold AcrlosDO 08/21/2020 - 08/23/2020 Medications Administered in Office [...] H/L Range Note Laboratory test finding 01/14/2021 [place] [facility] nisa sahu Hammersmith Helper: [place] [address] [phone] B-Type Natiuretic Peptide <pending> Laboratory test finding 01/14/2021 [place] [facility] [employer] nisa sahu Hammersmith Helper: [place] [address] [phone] TSH <pending> Total Iron Binding Capacit 12/07/2020 [place] [address] [phone] Iron (Fe) 63 g/dL Low 65-175 Total Iron Binding Capacity 220 g/dL Low 250-450 Percent Saturation 28.6 % Normal 19.7-50.0 Laboratory test finding 12/07/2020 [facility] [address] [place] [address] [phone] Ferritin 219 NG/ML Normal 26-388 1 Complete Blood Count 12/07/2020 [place] nisa Reynoso Hammersmith Helper: Dr Basilio Sena [place] [id number] [phone] WBC 6.7 x10*3/UL 4.1 - 10.9 2 RBC 3.37 x10*6/UL Low 4.20 - 6.30 [...] 2.0 - 7.8 Laboratory test finding 12/07/2020 [place] [facility] [employer] nisa sahu Hammersmith Helper: [place] [address] [phone] B-Type Natriuretic Peptide 568.0 pg/mL High 0.0 - 100.0 Magnesium 1.7 mg/dL Low 1.8 - 2.4 Comprehensive Chem Profile 12/07/2020 [place] nisa Woods Hammersmith Helper: [place] [address] [phone] Glucose 118 mg/dL High 74 - 99 3 BUN 35 mg/dL High 7 - 18 [...] Low >60 GFR 43 mL/min Low >60 4 Laboratory test finding 12/07/2020 [place] [facility] [employer] nisa sahu Hammersmith Helper: [place] [address] [phone] Thyroid Stimulating Hormone 5.46 uIU/mL High 0.3 6 - 3.74 Laboratory test finding 11/30/2020 [facility] [address] [place] [address] [phone] Lipase 172 U/L Normal 73-393 5 NT-Pro BNP 1331 pg/mL High <450 6 Liver Profile 11/30/2020 [facility] nter [address] [place] [address] [phone] Ast/Sgot 34 U/L Normal 7-37 Alt/SGPT 27 U/L Normal 12-78 Alkaline Phosphatase 139 U/L High 45-117 Bilirubin,Total 0.6 mg/dL Normal 0.2-1.0 Bilirubin,Direct 0.2 mg/dL Normal 0.0-0.2 Total Protein 7.8 GM/DL Normal 6.4-8.2 Albumin 2.7 GM/DL Low 3.2-5.2 Albumin/Globulin Ratio 0.5 Normal CBC With Differential 11/30/[address] [address] [phone] White Blood Count 9.2 10 Normal 4.0-10.0 [...] 36.0-66.0 Lymph % 16.9 % Low 24.0-44.0 Rush % 7.2 % Normal 2.0-8.0 Eos % 2.8 % Normal 0.0-3.0 Baso % 0.5 % Normal 0.0-1.0 Immature Granulocyte % 0.3 % Normal 0-3.0 Nucleated Red Blood Cell % 0.0 % Normal 0-0 Neutrophils # 6.7 10 Normal 1.5-8.5 Lymph # 1.6 10 Normal 1.5-5.0 Rush # 0.7 10 Normal 0.0-0.8 Eos # 0.3 10 Normal 0.0-0.5 Baso # 0.1 10 Normal 0.0-0.2 Influenza A/B RSV Covid Amp 11/30/[address] [address] [phone] Influenza A Amplification NEGATIVE Normal Negati ve 7 Influenza B Amplification NEGATIVE Normal Negative 8 RSV Amplification NEGATIVE Normal Negative 9 Sars Covid-19 Amplification NEGATIVE Normal Negative 10 Ua W/ Reflex To Culture 11/30/[address] [address] [phone] Appearance, Urine RFX CLEAR Normal Clear Color, Urine RFX YELLOW Normal Yellow PH,Urine RFX 8.0 units Normal 5.0-9.0 Specific Edelstein Ur Auto RFX 1.021 Normal 1.002-1.035 Protein, [...] /LPF Normal 0-1 Istat Chem8+ Panel 11/30/2020 [facility] nter [address] [place] [address] [phone] iSTAT HCT 33.0 % Low 38.0-51.0 iSTAT Glucose 108 mg/dL High 70-105 iSTAT Sodium 141 mEq/L Normal 136-145 iSTAT Potassium 4.7 mEq/L Normal 3.5-5.1 iSTAT CA++ 4.6 mg/dL Normal 4.5-5.3 iSTAT Chloride 101 mEq/L Normal 98-109 iSTAT Co2 28.0 MM/L High 23.0-27.0 iSTAT BUN 28 mg/dL High 8-26 iSTAT Creatinine 1.4 mg/dL High 0.6-1.3 Laboratory test finding 09/27/2020 [facility] [address] [place] [address] [phone] Wound Culture FULL REPORT IN L <SEE NOTE> Normal 11 Complete Blood Count 09/27/2020 [place] [facility] [employer] Hammersmith Helper: [place] [address] [phone] WBC 6.5 x10*3/UL 4.1 - 10.9 12 RBC 3.88 x10*6/UL Low 4.20 - 6.30 [...] 2.0 - 7.8 Comprehensive Chem Profile 09/27/2020 [facility] Hammersmith Helper: [place] [address] [phone] Glucose 127 mg/dL High 74 - 99 13 BUN 35 mg/dL High 7 - 18 14 Creatinine 1.4 mg/dL High 0.6 - 1.3 Sodium 140 mEq/L 136 - 145 Potassium 3.7 mEq/L 3.5 - 5.1 Chloride 102 mEq/L 98 - 107 Carbon Dioxide 35 mEq/L High 21 - 32 Calcium 9.3 mg/dL 8.5 - 10.1 Alk. Phosphatase 125 mg/dL High 46 - 116 15 Total Bilirubin 0.6 mg/dL 0.2 - 1.0 Ast (Sgot) 32 U/L 15 - 37 Alt (SGPT) 21 U/L 12 - 78 Albumin 3.2 g/dL Low 3.4 - 5.0 Total Protein 8.4 g/dL High 6.4 - 8.2 A/G Ratio 0.62 CALC Low 1.00 - 1.90 GFR 48 mL/min Low >60 GFR 58 mL/min Low >60 16 Laboratory test finding 09/27/2020 [facility] [address] [place], [place] [address] [phone] C Reactive Protein Quantitativ 0.46 mg/dL High 0 .00-0.30 17 Complete Blood Count 09/07/2020 [facility] [facility] [employer] [facility] Hammersmith Helper: [place] [address] [phone] WBC 7.9 x10*3/UL 4.1 - 10.9 RBC 3.53 x10*6/UL Low 4.20 - 6.30 Hemoglobin 10.5 g/dL Low 12.0 - 18.0 18 Hematocrit 30.8 % Low 37.0 - 51.0 [...] 2.0 - 7.8 Basic Metabolic Panel 09/07/2020 [facility] Hammersmith Helper: Dr Basilio Sena [place], [place] [id number] [phone] Glucose 109 mg/dL High 74 - 99 19 BUN 14 mg/dL 7 - 18 Creatinine 1.0 mg/dL 0.6 - 1.3 Sodium 141 mEq/L 136 - 145 Potassium 4.2 mEq/L 3.5 - 5.1 Chloride 104 mEq/L 98 - 107 Carbon Dioxide 31 mEq/L 21 - 32 Calcium 8.7 mg/dL 8.5 - 10.1 GFR >= 60 mL/min >60 GFR >= 60 mL/min >60 20 Respiratory Panel 08/29/2020 [facility] nter [address] [place] [address] [phone] Respiratory Panel This respiratory <SEE NOTE> 21 Basic Metabolic Profile 08/29/2020 [facility] [address] [place] [address] [phone] Glucose, Fasting 110 mg/dL High 70-100 Blood Urea Nitrogen 35 mg/dL High 7-18 Creatinine For GFR 1.45 mg/dL High 0.70-1.30 Glomerular Filtration Rate 49.0 Normal >35 2 2 Sodium Level 142 mEq/L Normal 136-145 Potassium Serum 4.1 mEq/L Normal 3.5-5.1 Chloride Level 107 mEq/L Normal 98-107 Carbon Dioxide Level 29 mEq/L Normal 21-32 Anion Gap 6 mEq/L Low 8-16 Calcium Level 8.4 mg/dL Low 8.8-10.2 Liver Profile 08/29/2020 [facility] n[facility] [address] [place] [address] [phone] Ast/Sgot 32 U/L Normal 7-37 Alt/SGPT 25 U/L Normal 12-78 Alkaline Phosphatase 154 U/L High 45-117 Bilirubin,Total 1.5 mg/dL High 0.2-1.0 Bilirubin,Direct 0.6 mg/dL High 0.0-0.2 Total Protein 7.3 GM/DL Normal 6.4-8.2 Albumin 3.2 GM/DL Normal 3.2-5.2 Albumin/Globulin Ratio 0.8 Normal Cardiac Marker Panel 08/29/2020 [facility] [address] [place] [address] [phone] CPK Creatine Phosphokinase 39 U/L Normal 39-30 8 CK-MB Value Mass < 1.0 NG/ML Normal <3.6 MB/CK Relative Index 2.56 Normal < Or =4 23 Troponin I < 0.02 NG/ML Normal < 0.10 24 Complete Blood Count 08/21/2020 [place] [facility] Hammersmith Helper: [place] [address] [phone] WBC 5.5 x10*3/UL 4.1 - 10.9 25 RBC 3.93 x10*6/UL Low 4.20 - 6.30 [...] 2.0 - 7.8 Laboratory test finding 08/21/2020 [place] [facility] Hammersmith Helper: [place] [address] [phone] B-Type Natriuretic Peptide 706.0 pg/mL High 0.0 - 100.0 Basic Metabolic Panel 08/21/2020 [facility] Hammersmith Helper: [place] [address] [phone] Glucose 109 mg/dL High 74 - 99 26 BUN 27 mg/dL High 7 - 18 Creatinine 1.3 mg/dL 0.6 - 1.3 Sodium 143 mEq/L 136 - 145 Potassium 4.7 mEq/L 3.5 - 5.1 Chloride 106 mEq/L 98 - 107 Carbon Dioxide 30 mEq/L 21 - 32 Calcium 9.0 mg/dL 8.5 - 10.1 GFR 52 mL/min Low >60 GFR >= 60 mL/min >60 27 1 note:<nlbl:demographic_chang ed> 2 NOTE: CBC VERIFIED 3 100-125 mg/dL PRE-DIABET ES/FASTING >126 mg/dL DIABETES/FASTING 4 CHRONIC KIDNEY DISEASE STAGI NG PER NKF STAGE I & II GFR >= 60 NORMAL TO MILDLY DECREASED STAGE III GFR 30-59 MODERATELY DECREASED STAGE IV GFR 15-29 SEVERELY DECREASED STAGE V GFR <15 VERY LITTLE GFR LEFT ESRD GFR <15 ON SEGMENTAL PAVER INSTALLER 5 note:<nlbl:demographic_chang ed> note:<nlbl:demographic_changed> note:<nlbl:demographic_changed> 6 note:<nlbl:demographic_chang ed> note:<nlbl:demographic_changed> note:<nlbl:demographic_changed> 7 Negative results do not prec lude influenza or RSV virus infection and should not be used as the sole basis for treatment or other patient management decisions. 8 Negative results do not prec lude influenza or RSV virus infection and should not be used as the sole basis for treatment or other patient management decisions. 9 Negative results do not prec lude influenza or RSV virus infection and should not be used as the sole basis for treatment or other patient management decisions. 10 A false negative result may occur if [...] pathogens. DISCLAIMER: Testing was performed using the [employer] SARS-CoV-2 test. This test was developed and its performance characteristics determined by [employer]. This test has not been FDA cleared [...] the authorization is terminated or revoked sooner. 11 FULL REPORT IN LAB NOTES (eC W [...] NEGATIVE ICR test is considered CLIDAMYCIN SENSITIVE. 12 NOTE: CBC VERIFIED 13 100-125 mg/dL PRE-DIABET ES/FASTING >126 mg/dL DIABETES/FASTING 14 NOTE: BUN,CREAT,ALB,T.PROTEIN VERIFIED 15 NOTE: RESULT VERIFIED. 16 CHRONIC KIDNEY DISEASE STAGI NG PER NKF STAGE I & II GFR >= 60 NORMAL TO MILDLY DECREASED STAGE III GFR 30-59 MODERATELY DECREASED STAGE IV GFR 15-29 SEVERELY DECREASED STAGE V GFR <15 VERY LITTLE GFR LEFT ESRD GFR <15 ON SEGMENTAL PAVER INSTALLER 17 note:<nlbl:demographic_chang ed> 18 NOTE: RESULT VERIFIED. 19 100-125 mg/dL PRE-DIABET ES/FASTING >126 mg/dL DIABETES/FASTING 20 CHRONIC KIDNEY DISEASE STAGI NG PER NKF STAGE I & II GFR >= 60 NORMAL TO MILDLY DECREASED STAGE III GFR 30-59 MODERATELY DECREASED STAGE IV GFR 15-29 SEVERELY DECREASED STAGE V GFR <15 VERY LITTLE GFR LEFT ESRD GFR <15 ON SEGMENTAL PAVER INSTALLER 21 This respiratory PCR panel d etects Influenza A H1, H3 and 2009 H1 viruses, Influenza B virus, Resp iratory Syncytial Virus, Human metapneumovirus, Parainfluenza virus 1, 2, 3 and 4, Adenovirus, Rhinovirus/Enterovirus, Coronavirus HKU1, NL63, OC43, 229E and SARS-CoV-2 (COVID 19), Bordetella pertussis, Bordetella parapertussis, Mycoplasma pneumoniae and Chlamydia pneumoniae. NEGATIVE by MULTIPLEXED NUCLEIC ACID PCR SARS-CoV-2 (COVID 19) NEGATIVE - SARS-CoV-2 (COVID19) 22 Units are mL/min/1.73 m2 Chronic Kidney Disease Staging per NKF: Stage I & II GFR >=60 Normal to Mildly Decreased Stage III GFR 30-59 Moderately Decreased Stage IV GFR 15-29 Severely Decreased Stage V GFR <15 Very Little GFR Left ESRD GFR <15 on SEGMENTAL PAVER INSTALLER 23 DIAGNOSIS CRITERIA MMB ng/ml Relative Index (RI) NON-AMI < or = 5 N/A CANTU ZONE > 5 < or = 4 AMI > 5 > 4 24 Troponin I Reference Interva l for Relay LOCI: 99th Percentile= 0.00-0.045 ng/ml Risk Stratification: <= 0.10 ng/ml Decreased Risk for Adverse Clinical Events. 0.10-1.50 ng/ml Increased Risk for Adv erse Clinical Events. Evaluation of additional criterion and/or repeat testing in 2-6 hours is suggested to rule out myocardial damage. >= 1.50 ng/ml Indicative of Myocardial Injury. 25 NOTE: CBC VERIFIED 26 100-125 mg/dL PRE-DIABET ES/FASTING >126 mg/dL DIABETES/FASTING 27 CHRONIC KIDNEY DISEASE STAGI NG PER NKF STAGE I & II GFR >= 60 NORMAL TO MILDLY DECREASED STAGE III GFR 30-59 MODERATELY DECREASED STAGE IV GFR 15-29 SEVERELY DECREASED STAGE V GFR <15 VERY LITTLE GFR LEFT ESRD GFR <15 ON SEGMENTAL PAVER INSTALLER Procedures Date Code Description Status 12/07/2020 72704 Office/Outpatient Established Mo d MDM 30-39 Min Completed 11/09/2020 54656 Trans Care SRV W/I 14D Of DC, Co mm W/I 2 Dys Med Rec Completed 09/07/2020 15805 [facility] SRV W/I 7 Days Of DC, C omm W/I 2 Dys Med Rec Completed 09/04/2020 [id number] Diabetic Foot Exam Completed 08/21/2020 93301 Office/Outpatient Established Mo d MDM 30-39 Min Completed Medical Devices Description No Information Available Encounters Type Date Location Provider Dx Diagnosis Office Visit 12/07/2020 1:30p [place] Burton Carter DO K59.00 Constipation, unspecified J18.9 Pneumonia, unspecified organ ism I47.2 Ventricular tachycardia D50.9 Iron deficiency anemia, unsp ecified I44.2 Atrioventricular block, comp lete 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 Z79.01 senior living (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 a nticoagulants 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, 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 E03.9 Hypothyroidism, unspecified E83.42 Hypomagnesemia Office Visit 11/09/2020 11:00a [place] [facility] I47.2 Ventricular tachycardia I48.0 Paroxysmal atrial fibrillati on 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 (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 a nticoagulants I73.9 Peripheral vascular disease, unspecified I44.2 Atrioventricular block, comp lete 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, 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 E03.9 Hypothyroidism, unspecified Office Visit 09/07/2020 11:00a [place] DO J18.9 Pneumonia, unspecified organism I73.9 Peripheral vascular disease, unspecified I50.41 Acute combined systolic and diastolic (congestive) hrt fail I48.0 Paroxysmal atrial fibrillati on Z79.01 senior living (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 a nticoagulants I44.2 Atrioventricular block, comp lete 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 M21.372 Foot drop, left foot N40.0 Benign prostatic hyperplasia without lower urinry tract symp Office Visit 08/21/2020 2:00p [facility]ina [facility] ,DO I73.9 Peripheral vascular [...] Presence of cardiac pacemaker Melida Gonzalez,DO 01/14/2021 Z79.01 senior living (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 antic oagulants Soraya Gonzalez,DO 01/14/2021 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 Soraya Gonzalez,DO 01/14/2021 M48.062 Spinal stenosis, lumbar region w ith neurogenic claudication Soraya Gonzalez,DO 01/14/2021 E03.9 Hypothyroidism, unspecified Antoni Gonzalez,DO 01/14/2021 D50.9 Iron deficiency anemia Soraya infante,DO 01/14/2021 E83.42 Hypomagnesemia Soraya Gonzalez,DO 01/14/2021 I48.0 Paroxysmal atrial fibrillation L aurfior Gonzalez,DO 12/07/2020 K59.00 Constipation Soraya Gonzalez,DO 12/07/2020 J18.9 Pneumonia Soraya Gonzalez,DO 12/07/2020 I47.2 Ventricular tachycardia Soraya pritchetts,DO 12/07/2020 D50.9 Iron deficiency anemia Soraya infante,DO 12/07/2020 I44.2 Atrioventricular block, complete Soraya Gonzalez,DO 12/07/2020 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r Melida Gonzalez,DO 12/07/2020 Z79.01 senior living (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 antic oagulants Soraya Carlos,DO 12/07/2020 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 Soraya Gonzalez,DO 12/07/2020 M48.062 Spinal stenosis, lumbar region w ith neurogenic claudication Soraya Gonzalez,DO 12/07/2020 E03.9 Hypothyroidism, unspecified Antoni a Carlos,DO 12/07/2020 E83.42 Hypomagnesemia Soraya Carlos,DO 11/09/2020 I47.2 Ventricular tachycardia Soraya Drummond ggs,DO 11/09/2020 I48.0 Paroxysmal atrial fibrillation L aura Carlos,DO 11/09/2020 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 (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 antic oagulants Soraya Carlos,DO 11/09/2020 I73.9 Peripheral vascular disease, uns pecified Soraya Carlos,DO 11/09/2020 I44.2 Atrioventricular block, complete Soraya Carlos,DO 11/09/2020 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r La ura Carlos,DO 11/09/2020 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 Soraya Gonzalez,DO 11/09/2020 M48.062 Spinal stenosis, lumbar region w ith neurogenic claudication Soraya Gonzalez,DO 11/09/2020 E03.9 Hypothyroidism, unspecified Antoni a Carlos,DO 09/07/2020 J18.9 Pneumonia, unspecified organism Soraya Gonzalez,DO 09/07/2020 I73.9 Peripheral vascular disease, uns pecified Soraya Carlos,DO 09/07/2020 I50.41 Acute combined systo lic (congestive) and diastolic (congestive) heart failure Soraya Gonzalez,DO 09/07/2020 I48.0 Paroxysmal atrial fibrillation L aura Carlos,DO 09/07/2020 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 (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 antic oagulants Soraya Carlos,DO 09/07/2020 I44.2 Atrioventricular block, complete Soraya Carlos,DO 09/07/2020 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r La ura Carlos,DO 09/07/2020 M21.372 Foot drop, left foot Soraya Gonzalez ,DO 09/07/2020 N40.0 Benign prostatic hyp erplasia without lower urinary tract symptoms Soraya Gonzalez,DO 08/21/2020 I73.9 Peripheral vascular disease, uns pecified Soraya Gonzalez,DO 08/21/2020 M21.372 Foot drop, left foot Soraya Gonzalez ,DO 08/21/2020 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 Soraya Gonzalez,D O 08/21/2020 I50.33 Acute on chronic diastolic (michel estive) heart failure Soraya Gonzalez,DO 08/21/2020 I48.0 Paroxysmal atrial fibrillation L yuliet Gonzalez,DO 08/21/2020 I25.10 Atherosclerotic hear t disease of [place] coronary artery without angina pectoris Soraya Gonzalez,DO 08/21/2020 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r Melida dietrich CarlosDO Plan of Treatment No Information Available Functional Status Description No Information Available Mental Status Description No Information Available Referrals Refer to Dr Reason for Referral Status Appt Date Roger Case MD CONSULT FOR PVD Patient Notified 10/10/2020 [facility] [address] ,[address] [place] [address] [phone]
--- OUTSIDE RECORDS SUMMARY | 2021-02-27 09:28 | CCD | Continuity of Care Document ---
Author Author Trevor LLANOS MD Organization Unknown Address [place] [address] Phone [phone] Care Team Providers Care Decision Science Analyst Name Role Phone Soraya Gonzalez AUTM [phone] Matt Bolaños MD [facility] AUTM Problems Active Problems Provider Date [...] Llanos MD Onset: 02/22/2020 Paroxysmal ventricular tachycardia FAN Nichole On set: 11/02/2020 Dietary management surveillance FAN Nichole Onset : 09/12/2020 Cardiac pacemaker in situ FAN Nichole Onset: 08/12 Complete atrioventricular block Adam [...] day Exercise Limitations Imbalance Exercise Limitations Weakness Allergies, Adverse Reactions, Alerts Active Allergies Criticality Reaction | Severity Comments Date Amoxicillin Unable to assess criticality 875 mg dose - severe uncontrollable diarrhea 09/11/2020 Medications Active Medications SIG Qnty Indications Ordering Provide r Date Amiodarone HCL 200mg Tablets Take (1) 200 mg tablet three times daily for 2 weeks Take (1) 200 mg tablet twice daily for 4 weeks Take (1) 200 mg tablet once daily 120tabs I47.2 Adam Llanos MD 11/02/2020 Fluticasone Propionate Nasal [place] 24- H our 50mcg/Act Suspension 1 spray in each nostril daily Unknown 11/01/2020 Loratadine 10mg Capsules 1 by mouth every day Unknown 11/01/2020 Atorvastatin Calcium 20mg Tablets 1 by mouth every day Soraya Gonzalez, 09/11/2020 Ferrous Gluconate 324(38Fe) mg Tab lets [...] 1 by mouth every day Unknown 02/21/2020 Multivitamin Adult Tablets 1 by mouth every day Unknown 02/21/2020 Eliquis 2.5mg Tablets 1 by mouth twice a day 180tabs Adam Llanos MD 02/21/2020 Pantoprazole Sodium 40mg Tablets D R 1 by mouth every day Unknown 02/21/2020 Tamsulosin HCL 0.4mg Capsules 1 by mouth every day Unknown 02/21/2020 Lyrica 75mg Capsules 1 by jonathan th daily Unknown 02/20/2020 [place] 3 1000mg Capsules 1 by mouth tid [...] NT Probnp QN Ser/Plas 568.0 CMP 11/02/2020 [facility] nter [phone] Glucose, Fasting 114 mg/dL High 70-100 Blood [...] Ratio 0.7 Normal Laboratory test finding 11/02/2020 [facility] [phone] Magnesium Level 2.2 mg/dL Normal 1.8-2.4 3 CBC without Differential 09/02/2020 [facility] - not inter faced (315)- - White Blood Count 9.2 5.0-10.0 Red Blood Count 3.25 Low 4.00-5.40 Platelets 159 Low 172-450 Hemoglobin 9.7 Hematocrit 30.5 CMP 09/02/2020 [facility] - not interfaced (315)- - Albumin Serum/Plasma [...] Little GFR Left ESRD GFR <15 on [employer] 2 Testing was performed on an icteric specimen. Testing was performed on a SLIGHTLY hemolyzed specimen. Suggest recollection of specimen for more accurate test results. 3 note:<nlbl:demographic_[facility] ed> Procedures Date Code Description Status 12/05/2020 82462 Remote Interrogate D evice Eval Cardioverter/Defibrillator-90 Days Completed 12/05/2020 58258 Remote Interrogation Device Eval Pacemaker System Up To 90 Days Completed 11/02/2020 95374 Office/Outpatient Established Mo d MDM 30-39 Min Completed 10/25/2020 47014 Chronic Care MGMT 20 Mins Clinical Staff Time Per Calendar Month Completed 09/17/2020 69253 Chronic Care MGMT 20 Mins Clinical Staff Time Per Calendar Month Completed 09/12/2020 96021 Office/Outpatient Established Mo d MDM 30-39 Min Completed 09/12/2020 42429 ECG 12-Lead Completed 09/05/2020 93921 Pacer Programming Dual Leads Com pleted 08/17/2020 40221 Chronic Care MGMT 20 Mins Clinical Staff Time Per Calendar Month Completed 07/26/2020 94049 Office/Outpatient Established Mi nimal Problem(S) Completed 07/16/2020 98531 Chronic Care MGMT 20 Mins Clinical Staff Time Per Calendar Month Completed 07/12/2020 88738 Office/Outpatient Established Mi nimal Problem(S) Completed 06/13/2020 40044 Chronic Care MGMT 20 Mins Clinical Staff Time Per Calendar Month Completed 06/13/2020 86250 Chronic Care Management Services Ea Addl 20 Min Completed Medical Devices Description No Information Available Encounters Type Date Location Provider Dx Diagnosis Office Visit 11/02/2020 8:00a Main Office FAN Nichole I47 .2 Ventricular tachycardia Office Visit 10/25/2020 5:51p Main Office Adam Llanos MD I47.2 Ventricular tachycardia I48.21 Permanent atrial fibrillatio n Office Visit 09/17/2020 1:44p Main Office Adam Llanos MD I48.21 Permanent atrial fibrillation I11.0 Hypertensive heart disease w ith heart failure Office Visit 09/12/2020 1:00p Main Office FAN Nichole I48 .21 Permanent atrial fibrillation 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 I11.0 Hypertensive heart disease w ith heart failure I25.10 Athscl heart disease of [...] an d diastolic hrt fail Office Visit 07/26/2020 9:30a Main Office Samantha Mancilla PA-C I44.2 Atrioventricular block, complete Office Visit 07/16/2020 1:35p Main Office Adam Llanos MD I48.21 Permanent atrial fibrillation 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 Office Visit 07/12/2020 11:15a Main Office Samantha Mancilla PA-C 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r Office Visit 06/13/2020 11:11a Main Office Adam Llanos MD I48.21 Permanent atrial fibrillation I34.0 Nonrheumatic mitral (valve) insufficiency I49.5 Sick sinus syndrome Assessments Date Code Description Provider 12/05/2020 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r [facility] 11/02/2020 I47.2 Ventricular tachycardia FAN Gant 10/25/2020 I47.2 Ventricular tachycardia Adam Llanos MD 10/25/2020 I48.21 Permanent atrial fibrillation Gregory Llanos MD 09/17/2020 I48.21 Permanent atrial fibrillation Gregory Llanos MD 09/17/2020 I11.0 Hypertensive heart disease with heart failure Adam Llanos MD 09/12/2020 I48.21 Permanent atrial fibrillation FAN Guzman 09/12/2020 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 FAN Nichole 09/12/2020 I11.0 Hypertensive heart disease with heart failure FAN Nichole 09/12/2020 I25.10 Atherosclerotic hear t disease of [place] coronary artery without angina pectoris FAN Nichole 09/12/2020 I44.2 Atrioventricular block, complete FAN Nichole 09/12/2020 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r FAN Guzman 09/12/2020 I71.2 Thoracic aortic aneurysm, withou t rupture FAN Nichole 09/12/2020 I34.0 Nonrheumatic mitral (valve) insu fficiency FAN Nichole 09/12/2020 R94.31 Abnormal electrocardiogram [ECG] [EKG] FAN Nichole 09/12/2020 Z71.3 Dietary counseling and surveilla nce FAN Nichole 09/05/2020 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r FAN Guzman 08/17/2020 I48.21 Permanent atrial fibrillation Gregory Llanos MD 08/17/2020 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 Adam Llanos MD 07/26/2020 I44.2 Atrioventricular block, complete Samantha Mancilla PA-C 07/16/2020 I48.21 Permanent atrial fibrillation Gregory Llanos MD 07/16/2020 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 Adam Llanos MD 07/12/2020 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r Poly Ayoub PA-C 06/13/2020 I48.21 Permanent atrial fibrillation Gregory Llanos MD 06/13/2020 I34.0 Nonrheumatic mitral (valve) insu fficiency Adam Llanos MD 06/13/2020 I49.5 Sick sinus syndrome Adam mauro MD Plan of Treatment Future Appointment(s):* 03/06/2021 7:00 am - Pacer/[facility]cd [facility] at Main Office * 03/14/2021 10:45 am - FAN Nichole at Main Office * 07/29/2021 9:15 am - Samantha Mancilla PA-C at Main Office 11/02/2020 - FAN Nichole* I47.2 Ventricular tachycardia* New Medication:* Amiodarone HCL 200 mg - Take (1) 200 mg tablet three times daily for 2 weeks Take (1) 200 mg tablet twice daily for 4 weeks Take (1) 200 mg tablet once daily * Recommendations:* At this time patient [...]
--- OUTSIDE RECORDS SUMMARY | 2021-02-27 09:28 | CCD | Continuity of Care Document ---
Author Author Trevor JACOB D.O. [place] [address] Phone [phone] Care Team Providers Care Occupational Health And Safety Adviser Name Role Phone Soraya Gonzalez D.O. AUTM [phone] AUTM Unavailable Problems Active Problems Provider Date [...] States BMI (Body Mass Index) 28.4 kg/m2 [place] Body Weight 172 lb Weight 92.534 kg BSA (Body Surface Area) 2.13 m2 07/10/2020 3:16pm BP Systolic 157 mmHg BP Diastolic 74 mmHg Heart Rate 58 /min O2 % BldC Oximetry 100 % Respiratory Rate 16 /min Body Temperature 97.2 F Height 71 inches 5'11" Weight 214.00 lb BMI (Body Mass Index) 29.8 kg/m2 [place] Body Weight 172 lb Weight 97.070 kg BSA (Body Surface Area) 2.17 m2 Results Description No Information Available Procedures Date Code Description Status 12/13/2020 28500 Office/Outpatient Established Mo d MDM 30-39 Min Completed 07/10/2020 74695 Office/Outpatient New Moderate M DM 45-59 Minutes Completed Medical Devices Description No Information Available Encounters Type Date Location Provider Dx Diagnosis Office Visit 12/13/2020 10:00a Daily Pulmonary/Thoracic Boris espinoza, D.O. R94.2 Abnormal results of pulmonary function s andria Z87.891 Personal history of nicotine dependence J47.9 [...] 10:30 am - Boris Jacob D.O. at [facility] [place] Pulmonary/Thoracic 12/13/2020 - Boris Jacob D.O.* R94.2 [...]
--- OUTSIDE RECORDS SUMMARY | 2021-02-27 09:28 | CCD | Continuity of Care Document ---
Author Author Trevor LLANOS MD Organization Unknown Address [place] [address] Phone [phone] Care Team Providers Care Health Equipment Servicer Name Role Phone Soraya Gonzalez AUTM [phone] Matt Bolaños MD [facility] AUTM Problems Active Problems Provider Date [...] Adam Llanos MD 10/12 Fluticasone Propionate Nasal [place] 24- H our 50mcg/Act Suspension 1 spray [...] 1 by jonathan th daily Unknown 02/20/2020 [place] 3 1000mg Capsules 1 by mouth tid [...] NT Probnp QN Ser/Plas 568.0 CMP 11/02/2020 [facility] nter [phone] Glucose, Fasting 114 mg/dL High 70-100 Blood [...] Ratio 0.7 Normal Laboratory test finding 11/02/2020 [facility] [phone] Magnesium Level 2.2 mg/dL Normal 1.8-2.4 3 [...] Little GFR Left ESRD GFR <15 on [employer] 2 Testing was performed on an icteric specimen. Testing was performed on a SLIGHTLY hemolyzed specimen. Suggest recollection of specimen for more accurate test results. 3 note:<nlbl:demographic_[facility] ed> Procedures Date Code Description Status 12/05/2020 57825 Remote Interrogate D evice Eval Cardioverter/Defibrillator-90 Days Completed 12/05/2020 25043 Remote Interrogation Device Eval Pacemaker System Up To 90 Days Completed 11/13/2020 45807 Chronic Care MGMT 20 Mins Clinical Staff Time Per Calendar Month Completed 11/02/2020 72744 Office/Outpatient Established Mo d MDM 30-39 Min Completed 10/25/2020 42872 Chronic Care MGMT 20 Mins Clinical Staff Time Per Calendar Month Completed 09/17/2020 47566 Chronic Care MGMT 20 Mins Clinical Staff Time Per Calendar Month Completed 09/12/2020 39598 Office/Outpatient Established Mo d MDM 30-39 Min Completed 09/12/2020 10951 ECG 12-Lead Completed 09/05/2020 89905 Pacer Programming Dual Leads Com pleted 08/17/2020 54128 Chronic Care MGMT 20 Mins Clinical Staff Time Per Calendar Month Completed 07/26/2020 86292 Office/Outpatient Established Mi nimal Problem(S) Completed 07/16/2020 05711 Chronic Care MGMT 20 Mins Clinical Staff Time Per Calendar Month Completed 07/12/2020 59374 Office/Outpatient Established Mi nimal Problem(S) Completed Medical Devices Description No Information Available Encounters Type Date Location Provider Dx Diagnosis Office Visit 11/13/2020 5:11p Main Office Adam Llanos MD I48.21 Permanent atrial fibrillation I11.0 Hypertensive heart disease w [facility] heart failure Office Visit 11/02/2020 8:00a Main Office NEGAR Nichole I47 .2 Ventricular tachycardia Office Visit 10/25/2020 5:51p Main Office Adam Llanos MD I47.2 Ventricular tachycardia I48.21 Permanent atrial fibrillatio n Office Visit 09/17/2020 1:44p Main Office Adam Llanos MD I48.21 Permanent atrial fibrillation I11.0 Hypertensive heart disease w [facility] heart failure Office Visit 09/12/2020 1:00p Main Office NEGAR Nichole I48 .21 Permanent atrial fibrillation 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 I11.0 Hypertensive heart disease w [facility] heart failure I25.10 Athscl heart disease of [place] coronary artery w/o ang pctrs I44.2 Atrioventricular block, comp lete 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 I71.2 Thoracic aortic aneurysm, wi thout rupture I34.0 Nonrheumatic mitral (valve) insufficiency R94.31 Abnormal electrocardiogram [ ECG] [EKG] Z71.3 Dietary counseling and surve illance Office Visit 08/17/2020 3:10p Main Office Aadm Llanos MD I48.21 Permanent atrial fibrillation I50.42 [...] Mancilla PA-C 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r Assessments Date Code Description Provider 12/05/2020 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r Pa [...] Llanos MD 09/12/2020 I48.21 Permanent atrial fibrillation NEGAR Guzman 09/12/2020 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
--- OUTSIDE RECORDS SUMMARY | 2021-02-27 09:28 | CCD | Continuity of Care Document ---
Author Author Trevor GONZALEZ Organization Unknown Address [address] [facility] [address] [place] [address] Phone [phone] Care Team Providers Care Lens Matcher Name Role Phone Soraya Gonzalez DO AUTM Unavailable Adam Llanos M.D. - Manager Urgent Care AUTM [phone] [facility] AUTM [phone] SSV Medical Record AUTM [phone] Problems Description No Information Available Social History [...] 1 daily 1/2 hour after same meal [facility] Soraya Gonzalez,DO 02/17/2020 Pregabalin 75mg Capsules [...] H/L Range Note Laboratory test finding 01/14/2021 [place] [employer] nisa sahu [employer] Inspector: Dr Basilio [place] [id number] [phone] B-Type Natriuretic Peptide 651.0 pg/mL High 0.0 - 100.0 Basic Metabolic Panel 01/14/2021 [place] [facility] nisa giles [employer] Ax[employer] Inspector: [place] [address] [phone] Glucose 132 mg/dL High 74 - 99 [...] Low >60 2 Laboratory test finding 01/14/2021 [facility] [place] [employer] Inspector: Dr Basilio [place], [place] [address] [phone] Thyroid Stimulating Hormone 3.74 uIU/mL 0.3 6 - 3.74 Complete Blood Count 01/14/2021 [place] [employer] nisa nicole [employer] Ax[employer] Inspector: [place] [address] [phone] WBC 6.7 x10*3/UL 4.1 - 10.9 3 [...] - 7.8 Total Iron Binding Capacit 12/07/2020 [facility] [address] [place] [address] [phone] Iron (Fe) 63 g/dL Low 65-175 Total Iron Binding Capacity 220 g/dL Low 250-450 Percent Saturation 28.6 % Normal 19.7-50.0 Laboratory test finding 12/07/2020 [facility] [address] [place] [address] [phone] Ferritin 219 NG/ML Normal 26-388 4 Complete Blood Count 12/07/2020 [place] [employer] [facility] [employer] Ax[employer] Inspector: [place] [address] [phone] WBC 6.7 x10*3/UL 4.1 - 10.9 5 [...] 2.0 - 7.8 Laboratory test finding 12/07/2020 [facility] [employer] Inspector: Dr [place], [place] [id number] [phone] B-Type Natriuretic Peptide 568.0 pg/mL High 0.0 - 100.0 Magnesium 1.7 mg/dL Low 1.8 - 2.4 Comprehensive Chem Profile 12/07/2020 [facility] Crowell [employer] Inspector: [place] [address] [phone] Glucose 118 mg/dL High 74 - 99 [...] Low >60 7 Laboratory test finding 12/07/2020 [place] n[facility] Foreman [employer] Ax[employer] Inspector: [place] [address] [phone] Thyroid Stimulating Hormone 5.46 uIU/mL High 0.3 6 - 3.74 Laboratory test finding 11/30/2020 [facility] [address] [place] [address] [phone] Lipase 172 U/L Normal 73-393 8 NT-Pro BNP 1331 pg/mL High <450 9 Liver Profile 11/30/2020 [facility] nter [address] [place] [address] [phone] Ast/Sgot 34 U/L Normal 7-37 Alt/SGPT 27 U/L Normal 12-78 Alkaline Phosphatase 139 U/L High 45-117 Bilirubin,Total 0.6 mg/dL Normal 0.2-1.0 Bilirubin,Direct 0.2 mg/dL Normal 0.0-0.2 Total Protein 7.8 GM/DL Normal 6.4-8.2 Albumin 2.7 GM/DL Low 3.2-5.2 Albumin/Globulin Ratio 0.5 Normal CBC With Differential 11/30/[address] [address] [phone] White Blood Count 9.2 10 Normal 4.0-10.0 [...] 36.0-66.0 Lymph % 16.9 % Low 24.0-44.0 Kershaw % 7.2 % Normal 2.0-8.0 Eos % 2.8 % Normal 0.0-3.0 Baso % 0.5 % Normal 0.0-1.0 Immature Granulocyte % 0.3 % Normal 0-3.0 Nucleated Red Blood Cell % 0.0 % Normal 0-0 Neutrophils # 6.7 10 Normal 1.5-8.5 Lymph # 1.6 10 Normal 1.5-5.0 Kershaw # 0.7 10 Normal 0.0-0.8 Eos # 0.3 10 Normal 0.0-0.5 Baso # 0.1 10 Normal 0.0-0.2 Influenza A/B RSV Covid Amp 11/30/2020 [place] [id number] [phone] Influenza A Amplification NEGATIVE Normal Negati ve 10 Influenza B Amplification NEGATIVE Normal Negative 11 RSV Amplification NEGATIVE Normal Negative 12 Sars Covid-19 Amplification NEGATIVE Normal Negative 13 Ua W/ Reflex To Culture 11/30/[address] [address] [phone] Appearance, Urine RFX CLEAR Normal Clear Color, Urine RFX YELLOW Normal Yellow PH,Urine RFX 8.0 units Normal 5.0-9.0 Specific [place]uttle Ur Auto RFX 1.021 Normal 1.002-1.035 Protein, [...] /LPF Normal 0-1 Istat Chem8+ Panel 11/30/2020 [facility] Ce nter [address] [place] [address] [phone] iSTAT HCT 33.0 % Low 38.0-51.0 iSTAT Glucose 108 mg/dL High 70-105 iSTAT Sodium 141 mEq/L Normal 136-145 iSTAT Potassium 4.7 mEq/L Normal 3.5-5.1 iSTAT CA++ 4.6 mg/dL Normal 4.5-5.3 iSTAT Chloride 101 mEq/L Normal 98-109 iSTAT Co2 28.0 MM/L High 23.0-27.0 iSTAT BUN 28 mg/dL High 8-26 iSTAT Creatinine 1.4 mg/dL High 0.6-1.3 Laboratory test finding 09/27/2020 [facility] [address] [place], [place] [id number] [phone] Wound Culture FULL REPORT IN L <SEE NOTE> Normal 14 Complete Blood Count 09/27/2020 [place] [employer] [employer] Ax[employer] Inspector: [place] [address] [phone] WBC 6.5 x10*3/UL 4.1 - 10.9 15 [...] 2.0 - 7.8 Comprehensive Chem Profile 09/27/2020 [place] [facility] kiran [employer] Ax[employer] Inspector: [place] [address] [phone] Glucose 127 mg/dL High 74 - 99 [...] Low >60 19 Laboratory test finding 09/27/2020 [facility] [address] [place] [address] [phone] C Reactive Protein Quantitativ 0.46 mg/dL High 0 .00-0.30 20 Complete Blood Count 09/07/2020 [facility] [employer] [facility] [employer] Inspector: [place] [address] [phone] WBC 7.9 x10*3/UL 4.1 - 10.9 RBC [...] 2.0 - 7.8 Basic Metabolic Panel 09/07/2020 [facility] [employer] Inspector: [place] [address] [phone] Glucose 109 mg/dL High 74 - 99 [...] 60 mL/min >60 23 Respiratory [facility] [address] [place], [place] [address] [phone] Respiratory Panel This respiratory <SEE NOTE> 24 Basic Metabolic Profile 08/29/2020 [facility] [address] [place] [address] [phone] Glucose, Fasting 110 mg/dL High 70-100 Blood [...] 8.4 mg/dL Low 8.8-10.2 Liver Profile 08/29/2020 [facility] [address] [place], [place] [address] [phone] Ast/Sgot 32 U/L Normal 7-37 Alt/SGPT 25 U/L Normal 12-78 Alkaline Phosphatase 154 U/L High 45-117 Bilirubin,Total 1.5 mg/dL High 0.2-1.0 Bilirubin,Direct 0.6 mg/dL High 0.0-0.2 Total Protein 7.3 GM/DL Normal 6.4-8.2 Albumin 3.2 GM/DL Normal 3.2-5.2 Albumin/Globulin Ratio 0.8 Normal Cardiac Marker Panel 08/29/2020 [place] [address] [place] [address]273 [phone] CPK Creatine Phosphokinase 39 U/L Normal 39-30 8 CK-MB Value Mass < 1.0 NG/ML Normal <3.6 MB/CK Relative Index 2.56 Normal < Or =4 26 Troponin I < 0.02 NG/ML Normal < 0.10 27 Complete Blood Count 08/21/2020 [facility] [employer] [facility] [employer] Inspector: [place] [address] [phone] WBC 5.5 x10*3/UL 4.1 - 10.9 28 [...] 2.0 - 7.8 Laboratory test finding 08/21/2020 [place] [facility] [employer] [facility] [employer] Inspector: [place] [address] [phone] B-Type Natriuretic Peptide 706.0 pg/mL High 0.0 - 100.0 Basic Metabolic Panel 08/21/2020 [facility] [employer] Inspector: [place] [address] [phone] Glucose 109 mg/dL High 74 - 99 [...] LITTLE GFR LEFT ESRD GFR <15 ON TV TECHNICIAN 3 NOTE: CBC VERIFIED 4 note:<nlbl:demographic_chang ed> 5 NOTE: CBC VERIFIED 6 100-125 mg/dL PRE-DIABET ES/FASTING >126 mg/dL DIABETES/FASTING 7 CHRONIC KIDNEY DISEASE STAGI NG PER NKF STAGE I & II GFR >= 60 NORMAL TO MILDLY DECREASED STAGE III GFR 30-59 MODERATELY DECREASED STAGE IV GFR 15-29 SEVERELY DECREASED STAGE V GFR <15 VERY LITTLE GFR LEFT ESRD GFR <15 ON TV TECHNICIAN 8 note:<nlbl:demographic_chang ed> note:<nlbl:demographic_changed> note:<nlbl:demographic_changed> 9 note:<nlbl:demographic_chang [...] pathogens. DISCLAIMER: Testing was performed using the [facility] SARS-CoV-2 test. This test was developed and its performance characteristics determined by [facility]. This test has not been FDA cleared [...] LITTLE GFR LEFT ESRD GFR <15 ON TV TECHNICIAN 20 note:<nlbl:demographic_chang ed> 21 NOTE: RESULT VERIFIED. 22 100-125 mg/dL PRE-DIABET ES/FASTING >126 mg/dL DIABETES/FASTING 23 CHRONIC KIDNEY DISEASE STAGI NG PER NKF STAGE I & II GFR >= 60 NORMAL TO MILDLY DECREASED STAGE III GFR 30-59 MODERATELY DECREASED STAGE IV GFR 15-29 SEVERELY DECREASED STAGE V GFR <15 VERY LITTLE GFR LEFT ESRD GFR <15 ON TV TECHNICIAN 24 This respiratory PCR panel d etects [...] Little GFR Left ESRD GFR <15 on TV TECHNICIAN 26 DIAGNOSIS CRITERIA MMB ng/ml Relative Index (RI) NON-AMI < or = 5 N/A CANTU ZONE > 5 < or = 4 AMI > 5 > 4 27 Troponin I Reference Interva l for Staff Ranker LOCI: 99th Percentile= 0.00-0.045 ng/ml Risk Stratification: [...] LITTLE GFR LEFT ESRD GFR <15 ON TV TECHNICIAN Procedures Date Code Description Status 12/07/2020 26829 Office/Outpatient Established Mo d MDM 30-39 Min Completed 11/09/2020 98489 Trans Care SRV W/I 14D Of DC, Co mm W/I 2 Dys Med Rec Completed 09/07/2020 34361 [place] Cre SRV W/I 7 Days Of DC, C omm W/I 2 Dys Med Rec Completed 09/04/2020 581622345 Diabetic Foot Exam Completed 08/21/2020 94493 Office/Outpatient Established Mo d MDM 30-39 Min Completed Medical Devices Description No Information Available Encounters Type Date Location Provider Dx Diagnosis Office Visit 12/07/2020 1:30p [place] [facility] sahu DO K59.00 Constipation, unspecified J18.9 Pneumonia, unspecified organ ism I47.2 Ventricular tachycardia D50.9 Iron deficiency anemia, unsp ecified I44.2 Atrioventricular block, comp lete 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 Z79.01 shelter (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 a nticoagulants 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, 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 E03.9 Hypothyroidism, unspecified E83.42 Hypomagnesemia Office Visit 11/09/2020 11:00a [place] [facility] sahu DO I47.2 Ventricular tachycardia I48.0 Paroxysmal atrial fibrillati on Z79.01 shelter (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 a nticoagulants I73.9 Peripheral vascular disease, unspecified I44.2 Atrioventricular block, comp lete 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, 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 E03.9 Hypothyroidism, unspecified Office Visit 09/07/2020 11:00a [place] [facility] sahu DO J18.9 Pneumonia, unspecified organism I73.9 Peripheral vascular disease, unspecified I50.41 Acute combined systolic and diastolic (congestive) hrt fail I48.0 Paroxysmal atrial fibrillati on Z79.01 terminal carman (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 a nticoagulants I44.2 Atrioventricular block, comp lete 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 M21.372 Foot drop, left foot N40.0 Benign prostatic hyperplasia without lower urinry tract symp Office Visit 08/21/2020 2:00p [facility] 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 Soraya Gonzalez,DO 12/07/2020 M48.062 Spinal stenosis, lumbar region w ith neurogenic claudication Soraya Gonzalez,DO 12/07/2020 E03.9 Hypothyroidism, unspecified Antoni a Carlos,DO 12/07/2020 E83.42 Hypomagnesemia Soraya Gonzalez,DO 11/09/2020 I47.2 Ventricular tachycardia Soraya pritchetts,DO 11/09/2020 I48.0 Paroxysmal atrial fibrillation L yuliet Gonzalze,DO 11/09/2020 Z79.01 terminal carman (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 antic oagulants Soraya Carlos,DO 11/09/2020 I73.9 Peripheral vascular disease, uns pecified Soraya Carlos,DO 11/09/2020 I44.2 Atrioventricular block, complete Soraya Carlos,DO 11/09/2020 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r La kaur Gonzalez,DO 11/09/2020 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 Soraya Gonzalez,DO 11/09/2020 M48.062 Spinal stenosis, lumbar region w ith neurogenic claudication Soraya Gonzalez,DO 11/09/2020 E03.9 Hypothyroidism, unspecified Antoni a Carlos,DO 09/07/2020 J18.9 Pneumonia, unspecified organism Soraya Carlos,DO 09/07/2020 I73.9 Peripheral vascular disease, uns pecified Soraya Carlos,DO 09/07/2020 I50.41 Acute combined systo lic (congestive) and diastolic (congestive) heart failure Soraya Gonzalez,DO 09/07/2020 I48.0 Paroxysmal atrial fibrillation L treasurea Carlos,DO 09/07/2020 Z79.01 shelter (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 antic oagulants Soraya Carlos,DO 09/07/2020 I44.2 Atrioventricular block, complete Soraya Carlos,DO 09/07/2020 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r Melida Gonzalez, 09/07/2020 M21.372 Foot drop, left foot Soraya Gonzalez ,DO 09/07/2020 N40.0 Benign prostatic hyp erplasia without lower urinary tract symptoms Soraya Gonzalez,DO 08/21/2020 I73.9 Peripheral vascular disease, uns pecified Soraya Carlos,DO 08/21/2020 M21.372 Foot drop, left foot Soraya Gonzalez ,DO 08/21/2020 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
--- OUTSIDE RECORDS SUMMARY | 2021-02-27 09:28 | CCD | Continuity of Care Document ---
Author Author Trevor LLANOS MD Organization Unknown Address [facility] [place] [address] Phone [phone] Care Team Providers Care Link Wire Fabric Machine Tender Name Role Phone Soraya Gonzalez AUTM [phone] Matt Bolaños MD [facility] AUTM Problems Active Problems Provider Date [...] Adam Llanos MD 10/12 Fluticasone Propionate Nasal [place] 24- H our 50mcg/Act Suspension 1 spray [...] 1 by jonathan th daily Unknown 02/20/2020 [place] 3 1000mg Capsules 1 by mouth tid [...] NT Probnp QN Ser/Plas 568.0 CMP 11/02/2020 [facility] nter [phone] Glucose, Fasting 114 mg/dL High 70-100 Blood [...] Ratio 0.7 Normal Laboratory test finding 11/02/2020 [facility] [phone] Magnesium Level 2.2 mg/dL Normal 1.8-2.4 3 [...] Little GFR Left ESRD GFR <15 on TISSUE COORDINATOR 2 Testing was performed on an icteric specimen. Testing was performed on a SLIGHTLY hemolyzed specimen. Suggest recollection of specimen for more accurate test results. 3 note:<nlbl:demographic_[facility] ed> Procedures Date Code Description Status 12/05/2020 08120 Remote Interrogate D evice Eval Cardioverter/Defibrillator-90 Days Completed 12/05/2020 48467 Remote Interrogation Device Eval Pacemaker System Up To 90 Days Completed 11/13/2020 29733 Chronic Care MGMT 20 Mins Clinical Staff Time Per Calendar Month Completed 11/02/2020 33187 Office/Outpatient Established Mo d MDM 30-39 Min Completed 10/25/2020 68911 Chronic Care MGMT 20 Mins Clinical Staff Time Per Calendar Month Completed 09/17/2020 79833 Chronic Care MGMT 20 Mins Clinical Staff Time Per Calendar Month Completed 09/12/2020 36892 Office/Outpatient Established Mo d MDM 30-39 Min Completed 09/12/2020 04063 ECG 12-Lead Completed 09/05/2020 23895 Pacer Programming Dual Leads Com pleted 08/17/2020 98575 Chronic Care MGMT 20 Mins Clinical Staff Time Per Calendar Month Completed 07/26/2020 10421 Office/Outpatient Established Mi nimal Problem(S) Completed 07/16/2020 49517 Chronic Care MGMT 20 Mins Clinical Staff Time Per Calendar Month Completed 07/12/2020 30289 Office/Outpatient Established Mi nimal Problem(S) Completed Medical Devices Description No Information Available Encounters Type Date Location Provider Dx Diagnosis Office Visit 11/13/2020 5:11p Main Office Adam Llanos MD I48.21 Permanent atrial fibrillation I11.0 Hypertensive heart disease w [facility] heart failure Office Visit 11/02/2020 8:00a Main Office NEGAR Nichole I47 .2 Ventricular tachycardia Office Visit 10/25/2020 5:51p Main Office Adam Llanos MD I47.2 Ventricular tachycardia I48.21 Permanent atrial fibrillatio n Office Visit 09/17/2020 1:44p Main Office Adam Llanos MD I48.21 Permanent atrial fibrillation I11.0 Hypertensive heart disease w [facility] heart failure Office Visit 09/12/2020 1:00p Main Office NEGAR Nichole I48 .21 Permanent atrial fibrillation 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
--- OUTSIDE RECORDS SUMMARY | 2021-02-27 09:28 | CCD | Continuity of Care Document ---
Author Author Trevor DELEON DPM Organization Unknown Address [address] [place] [address], [facility] [address] [place] [address] Phone [phone] Care Team Providers Care Associate Editor Name Role Phone Carlos MCCANN, Soraya ROEM [phone] Problems Active Problems Provider Date Bunion David Deleon DPM Onset: 09/10/2020 Acquired deformity of limb David Deleon DPM Onset: 09/10 Peripheral vascular disease David Deleon DPM Onset: 08/13 Onychomycosis David Deleon DPM Onset: 09/10/2020 Social History Type Date Description Comments Sex Unknown ETOH Use Denies alcohol use Tobacco Use Start: Unknown End: Unknown Patient is a former smoker 48 florencia hx smoking 1ppd quit 2002 Allergies, Adverse Reactions, Alerts Description No Known Drug Allergies Medications Active Medications SIG Qnty Indications Ordering Provide r Date Finasteride 5mg Tablets Take One Tablet By Mouth Every Day Unknown Sulfamethoxazole/Trimethoprim DS 800-160mg Tablets Take 1 Tablet By Mouth 1 Hour Prior To Cystoscopy Unknown Tamsulosin HCL 0.4mg Capsules Take One Capsule By Mouth Every Day 1/2 Hour After The Same Meal Unknown Albuterol Sulfate (2 .5mg/3ML) 0.083% Nebulizer Use 1 Vial Via Nebulizer Two Times A Day And Every 6 Hours as Ne eded Unknown Ventolin HFA 108(90Base) mcg/Act A erosol Sd Bryson Simvastatin 20mg Tablets Blake Lewis M.D. Pregabalin 75mg Capsules Take One Capsule By Mouth In The Evening Maximum Daily Dose 1 Capsule Unknown Metoprolol Succinate ER 50mg Tablets ER 24HR Take One Tablet By Mouth Every Day Unknow n Levothyroxine Sodium 112mcg Tablet s Take One Tablet By Mouth Every Day Unknown Nystatin [id number]/GM Powder MD James Acuña Potassium Chloride ER 10Meq Capsules ROSLYN Gonzalez MD,Soraya Eliquis 2.5mg Tablets Adam Llanos M.D. Torsemide 10mg Tablets Take Two Tablets By Mouth Every Day For 3 Days Then One Tablet Daily After That Unknown Pantoprazole Sodium 40mg Tablets D R Take One Tablet By Mouth Every Day Unknown Atorvastatin Calcium 20mg Tablets Take One Tablet By Mouth Every Day Unknown Torsemide 20mg Tablets Take One Tablet By Mouth Every Day Unknown Amoxicillin/Clavulanate Potassium 875-125mg Tablets MD James Acuña Immunizations Description No Information Available Vital Signs Date Vital Result Comment 09/04/2020 8:54am Height 70 inches 5'10" Weight 220.00 lb BP Systolic 126 mmHg BP Diastolic 60 mmHg Heart Rate 62 /min BMI (Body Mass Index) 31.6 kg/m2 Results Description No Information Available Procedures Date Code Description Status 12/14/2020 20847 Debridement 6-10 Nails Electric Completed 09/04/2020 56885 Office/Outpatient New Low MDM 30 -44 Minutes Completed 09/04/2020 3288F Fall Risk Assessment Documented Completed 09/04/2020 90753 Debridement 6-10 Nails Electric Completed Medical Devices Description No Information Available Encounters Type Date Location Provider Dx Diagnosis Office Visit 09/04/2020 3:00p [place] [facility] David Deleon DPM M21.619 Bunion of unspecified foot M21.272 Flexion deformity, left ankl e and toes I73.89 Other specified peripheral v ascular diseases B35.1 Tinea unguium Assessments Date Code Description Provider 12/14/2020 B35.1 Tinea unguium David Deleon DPM 12/14/2020 I73.89 Other specified peripheral vascu lar diseases FRANKLIN ArchibaldM 09/04/2020 M21.619 Bunion of unspecified foot Sarmad Deleon, NIMA 09/04/2020 M21.272 Flexion deformity, left ankle an d toes David Deleon, NIMA 09/04/2020 I73.89 Other specified peripheral vascu lar diseases David Deleon, NIMA 09/04/2020 B35.1 Tinea unguium David Deleon DPM Plan of Treatment Future Appointment(s):* 02/22/2021 3:15 pm - David Deleon DPM at [place] [facility] Functional Status Description No Information Available Mental Status Description No Information Available Referrals Description No Information Available
--- OUTSIDE RECORDS SUMMARY | 2021-02-27 09:28 | CCD | Continuity of Care Document ---
Author Author Trevor LLANOS MD Organization Unknown Address [facility] [place] [address] Phone [phone] Care Team Providers Care Presser All Around Name Role Phone Soraya Gonzalez AUTM [phone] Matt Bolaños MD [facility] AUTM Problems Active Problems Provider Date Permanent [...] Adam Llanos MD 11/02/2020 Fluticasone Propionate Nasal [place] 24- H our 50mcg/Act Suspension 1 spray [...] 1 by jonathan th daily Unknown 02/20/2020 [place] 3 1000mg Capsules 1 by mouth tid [...] NT Probnp QN Ser/Plas 568.0 CMP 11/02/2020 [facility] nter [phone] Glucose, Fasting 114 mg/dL High 70-100 Blood [...] Ratio 0.7 Normal Laboratory test finding 11/02/2020 [facility] [phone] Magnesium Level 2.2 mg/dL Normal 1.8-2.4 3 CBC without Differential 09/02/2020 [facility] - not inter faced (315)- - White Blood Count 9.2 5.0-10.0 Red Blood Count 3.25 Low 4.00-5.40 Platelets 159 Low 172-450 Hemoglobin 9.7 Hematocrit 30.5 CMP 09/02/2020 [facility] - not interfaced (315)- - Albumin [...] Little GFR Left ESRD GFR <15 on JACKHAMMER SPLITTER OPERATOR 2 Testing was performed on an icteric specimen. Testing was performed on a SLIGHTLY hemolyzed specimen. Suggest recollection of specimen for more accurate test results. 3 note:<nlbl:demographic_[facility] ed> Procedures Date Code Description Status 12/05/2020 52962 Remote Interrogate D evice Eval Cardioverter/Defibrillator-90 Days Completed 12/05/2020 54754 Remote Interrogation Device Eval Pacemaker System Up To 90 Days Completed 11/02/2020 52020 Office/Outpatient Established Mo d MDM 30-39 Min Completed 10/25/2020 41178 Chronic Care MGMT 20 Mins Clinical Staff Time Per Calendar Month Completed 09/17/2020 36654 Chronic Care MGMT 20 Mins Clinical Staff Time Per Calendar Month Completed 09/12/2020 26143 Office/Outpatient Established Mo d MDM 30-39 Min Completed 09/12/2020 15216 ECG 12-Lead Completed 09/05/2020 78135 Pacer Programming Dual Leads Com pleted 08/17/2020 99778 Chronic Care MGMT 20 Mins Clinical Staff Time Per Calendar Month Completed 07/26/2020 88613 Office/Outpatient Established Mi nimal Problem(S) Completed 07/16/2020 49324 Chronic Care MGMT 20 Mins Clinical Staff Time Per Calendar Month Completed 07/12/2020 89211 Office/Outpatient Established Mi nimal Problem(S) Completed 06/13/2020 09671 Chronic Care MGMT 20 Mins Clinical Staff Time Per Calendar Month Completed 06/13/2020 76442 Chronic Care Management Services Ea Addl 20 [...] 09/12/2020 I25.10 Atherosclerotic hear t disease of [place] coronary artery without angina pectoris FAN Nichole [...]
--- OUTSIDE RECORDS SUMMARY | 2021-02-27 09:28 | CCD | Continuity of Care Document ---
Author Author Trevor DELEON DPM Organization Unknown Address [address] [place] [address], [facility] [address] [place] [address] Phone [phone] Care Team Providers Care Change Advisor Name Role Phone Carlos MCCANN, Soraya ROEM [phone] Problems Active Problems Provider Date Bunion David [...] Tablet By Mouth Every Day Unknown Nystatin 081357Rhde/GM Powder MD James Acuña Potassium Chloride ER [...] Information Available Procedures Date Code Description Status 09/04/2020 08343 Office/Outpatient New Low MDM 30 -44 Minutes Completed 09/04/2020 3288F Fall Risk Assessment Documented Completed 09/04/2020 55353 Debridement 6-10 Nails Electric Completed Medical Devices Description No Information Available Encounters Type Date Location Provider Dx Diagnosis Office Visit 09/04/2020 3:00p [facility] David Deleon DPM M21.619 Bunion of unspecified foot M21.272 Flexion deformity, left ankl e and toes I73.89 Other specified peripheral v ascular diseases B35.1 Tinea unguium Assessments Date Code Description Provider 09/04/2020 M21.619 Bunion of unspecified foot Sarmad Deleon DPM 09/04/2020 M21.272 Flexion deformity, left ankle an d toes David Deleon DPM 09/04/2020 I73.89 Other specified peripheral vascu lar diseases David Deleon DPM 09/04/2020 B35.1 Tinea unguium David Deleon DPM Plan of Treatment Future Appointment(s):* 02/22/2021 3:15 pm - David Deleon DPM at [facility] Functional Status Description No Information Available Mental Status Description No Information Available Referrals Description No Information Available
--- OUTSIDE RECORDS SUMMARY | 2021-02-27 09:29 | CCD | Continuity of Care Document ---
Author Author Trevor ROONEY Organization Unknown Address [address] [facility] [address] [place] [address] Phone [phone] Care Team Providers Care Vault Mechanic Name Role Phone Soraya Rooney DO AUTM Unavailable Adam Llanos M.D. - Outsole Beveler AUTM [facility] Hea AUTM [phone] Problems Description No Information Available Social History Type Date Description Comments Sex Unknown ETOH Use Denies alcohol use Tobacco Use Start: Unknown End: Unknown Patient is a former smoker smoked for 50 years x1 lee ann daily ,quit 2002 Allergies, Adverse Reactions, Alerts Description No Known Drug Allergies Medications Active Medications SIG Qnty Indications Ordering Provide r Date Senokot 8.6mg Tablets as need ed Soraya Rooney DO 11/28/2020 Torsemide 10mg Tablets 1 qd P O 60tabs Soraya Rooney DO 09/07/2020 Ferrous Gluconate 324(38Fe) mg Tab lets 1 by mouth every day 30tabs Soraya Rooney DO 09/07/2020 Atorvastatin Calcium 20mg Tablets 1 by mouth every day 30tabs Soraya Rooney DO 08/21/2020 Fish Oil 1200mg Capsules 2 by mouth every day Soraya Rooney DO 02/17/[address] 1 by mouth every day Soraya Rooney DO 02/17/2020 Centrum Silver 50+Men 50+Men Table ts 1 by mouth every day Soraya Rooney, 02/17/2020 Pantoprazole Sodium 40mg Tablets D R 1 by mouth every day 90tabs Soraya Rooney DO 02/17/2020 Tamsulosin HCL 0.4mg Capsules 1 daily 1/2 hour after same meal 90caps Soraya Rooney DO 02/17/2020 Pregabalin 75mg Capsules 1 in pm 90judd Lewis M.D. 02/17/2020 Levothyroxine Sodium 112mcg Tablet s 1 by mouth every day 90cayden Lewis M.D. 02/17/2020 Finasteride 5mg Tablets 1 by mouth every day 90tapam Rooney DO 02/17/2020 Eliquis 2.5mg Tablets 1 by mouth twice a day 180tapam Rooney DO 02/17/2020 Fluticasone Propionate 50mcg/Act Suspension 2 sprays each nostril daily Unknown Chlorhexidine Gluconate 0.12% Solu tion tid Unknown Amiodarone HCL 200mg Tablets Theryapy Per Cardiology 1 tid 2 Weeks Theb bid X Weeks Then qd Unknown History Medications Augmentin 500-125mg Tablets 1 by mouth twice a day with food for 10days 20tabs Soraya Rooney DO 09/27/2020 - 11/01/2020 Augmentin 500-125mg Tablets 1 by mouth twice a day with food for 2 days 4tabs Soraya Rooney DO 09/07/2020 - 09/27/2020 Torsemide 20mg Tablets 1 p o daily 30tabs Soraya Rooney DO 08/23/2020 - 09/04/2020 Torsemide 10mg Tablets 2 by mouth every day for 3 days then 1 once a day after that. 30tabs Alla Rooney DO 08/21/2020 - 08/23/2020 Medications Administered in Office Medication SIG Qnty Indications Ordering Provider Date Covid-19 vaccine, Unspecified Inj ection Unknown 05/17/2020 Covid-19 vaccine, Unspecified Inj ection Unknown 04/26/2020 Immunizations Description No Information Available Vital Signs Date Vital Result Comment 11/09/2020 11:02am BP Systolic 108 mmHg RT Arm BP Diastolic 42 mmHg RT Arm Heart Rate 56 /min Height 70 inches 5'10" Weight 204.38 lb O2 % BldC Oximetry 91 % RM Air BMI (Body Mass Index) 29.3 kg/m2 09/27/2020 2:54pm BP Systolic 130 mmHg BP Diastolic 60 mmHg Heart Rate 54 /min Height 70 inches 5'10" Weight 211.00 lb BMI (Body Mass Index) 30.3 kg/m2 Results Test Acquired Date Facility Test Result H/L Range Note Influenza A/B RSV Covid Amp 11/30/2020 [facility] [address] [place] [address] [phone] Influenza A Amplification NEGATIVE Normal Negati ve 1 Influenza B Amplification NEGATIVE Normal Negative 2 RSV Amplification NEGATIVE Normal Negative 3 Sars Covid-19 Amplification NEGATIVE Normal Negative 4 Istat Chem8+ Panel 11/30/2020 [facility] nter [address] [place] [address] [phone] iSTAT HCT 33.0 % Low 38.0-51.0 iSTAT Glucose 108 mg/dL High 70-105 iSTAT Sodium 141 mEq/L Normal 136-145 iSTAT Potassium 4.7 mEq/L Normal 3.5-5.1 iSTAT CA++ 4.6 mg/dL Normal 4.5-5.3 iSTAT Chloride 101 mEq/L Normal 98-109 iSTAT Co2 28.0 MM/L High 23.0-27.0 iSTAT BUN 28 mg/dL High 8-26 iSTAT Creatinine 1.4 mg/dL High 0.6-1.3 CBC With Differential 11/30/2020 [facility] [address] [id number] [phone] White Blood Count 9.2 10 Normal 4.0-10.0 [...] 36.0-66.0 Lymph % 16.9 % Low 24.0-44.0 Yates % 7.2 % Normal 2.0-8.0 Eos % 2.8 % Normal 0.0-3.0 Baso % 0.5 % Normal 0.0-1.0 Immature Granulocyte % 0.3 % Normal 0-3.0 Nucleated Red Blood Cell % 0.0 % Normal 0-0 Neutrophils # 6.7 10 Normal 1.5-8.5 Lymph # 1.6 10 Normal 1.5-5.0 Yates # 0.7 10 Normal 0.0-0.8 Eos # 0.3 10 Normal 0.0-0.5 Baso # 0.1 10 Normal 0.0-0.2 Liver Profile 11/30/2020 [facility] nter [address] [place] [address] [phone] Ast/Sgot 34 U/L Normal 7-37 Alt/SGPT 27 U/L Normal 12-78 Alkaline Phosphatase 139 U/L High 45-117 Bilirubin,Total 0.6 mg/dL Normal 0.2-1.0 Bilirubin,Direct 0.2 mg/dL Normal 0.0-0.2 Total Protein 7.8 GM/DL Normal 6.4-8.2 Albumin 2.7 GM/DL Low 3.2-5.2 Albumin/Globulin Ratio 0.5 Normal Laboratory test finding 11/30/[address] [address] [phone] Lipase 172 U/L Normal 73-393 5 NT-Pro BNP 1331 pg/mL High <450 6 Ua W/ Reflex To Culture 11/30/[address] [address] [phone] Appearance, Urine RFX CLEAR Normal Clear Color, Urine RFX YELLOW Normal Yellow PH,Urine RFX 8.0 units Normal 5.0-9.0 Specific Tracy Ur Auto RFX 1.021 Normal 1.002-1.035 Protein, [...] Urine Auto RFX 0 /LPF Normal 0-1 Laboratory test finding 09/27/2020 [facility] [address] [place], [place] [address] [phone] Wound Culture FULL REPORT IN L <SEE NOTE> Normal 7 Complete Blood Count 09/27/2020 [facility] Track Inspecting Supervisor: [place] [address] [phone] WBC 6.5 x10*3/UL 4.1 - 10.9 8 RBC 3.88 x10*6/UL Low 4.20 - 6.30 [...] 2.0 - 7.8 Comprehensive Chem Profile 09/27/2020 [facility] Track Inspecting Supervisor: [place] [address] [phone] Glucose 127 mg/dL High 74 - 99 9 BUN 35 mg/dL High 7 - 18 10 Creatinine 1.4 mg/dL High 0.6 - 1.3 Sodium 140 mEq/L 136 - 145 Potassium 3.7 mEq/L 3.5 - 5.1 Chloride 102 mEq/L 98 - 107 Carbon Dioxide 35 mEq/L High 21 - 32 Calcium 9.3 mg/dL 8.5 - 10.1 Alk. Phosphatase 125 mg/dL High 46 - 116 11 Total Bilirubin 0.6 mg/dL 0.2 - 1.0 Ast (Sgot) 32 U/L 15 - 37 Alt (SGPT) 21 U/L 12 - 78 Albumin 3.2 g/dL Low 3.4 - 5.0 Total Protein 8.4 g/dL High 6.4 - 8.2 A/G Ratio 0.62 CALC Low 1.00 - 1.90 GFR 48 mL/min Low >60 GFR 58 mL/min Low >60 12 Laboratory test finding 09/27/2020 [facility] [address] [place] [address] [phone] C Reactive Protein Quantitativ 0.46 mg/dL High 0 .00-0.30 13 Complete Blood Count 09/07/2020 [facility] Track Inspecting Supervisor: [place] [address] [phone] WBC 7.9 x10*3/UL 4.1 - 10.9 RBC 3.53 x10*6/UL Low 4.20 - 6.30 Hemoglobin 10.5 g/dL Low 12.0 - 18.0 14 Hematocrit 30.8 % Low 37.0 - 51.0 [...] 2.0 - 7.8 Basic Metabolic Panel 09/07/2020 [facility] Track Inspecting Supervisor: [place] [address] [phone] Glucose 109 mg/dL High 74 - 99 15 BUN 14 mg/dL 7 - 18 Creatinine 1.0 mg/dL 0.6 - 1.3 Sodium 141 mEq/L 136 - 145 Potassium 4.2 mEq/L 3.5 - 5.1 Chloride 104 mEq/L 98 - 107 Carbon Dioxide 31 mEq/L 21 - 32 Calcium 8.7 mg/dL 8.5 - 10.1 GFR >= 60 mL/min >60 GFR >= 60 mL/min >60 16 Respiratory Panel 08/29/2020 [place] [address] [phone] Respiratory Panel This respiratory <SEE NOTE> 17 Cardiac Marker Panel 08/29/[address] [address] [phone] CPK Creatine Phosphokinase 39 U/L Normal 39-30 8 CK-MB Value Mass < 1.0 NG/ML Normal <3.6 MB/CK Relative Index 2.56 Normal < Or =4 18 Troponin I < 0.02 NG/ML Normal < 0.10 19 Liver Profile 08/29/2020 [place] [id number] [phone] Ast/Sgot 32 U/L Normal 7-37 Alt/SGPT 25 U/L Normal 12-78 Alkaline Phosphatase 154 U/L High 45-117 Bilirubin,Total 1.5 mg/dL High 0.2-1.0 Bilirubin,Direct 0.6 mg/dL High 0.0-0.2 Total Protein 7.3 GM/DL Normal 6.4-8.2 Albumin 3.2 GM/DL Normal 3.2-5.2 Albumin/Globulin Ratio 0.8 Normal Basic Metabolic Profile 08/29/[address] [address] [phone] Glucose, Fasting 110 mg/dL High 70-100 Blood Urea Nitrogen 35 mg/dL High 7-18 Creatinine For GFR 1.45 mg/dL High 0.70-1.30 Glomerular Filtration Rate 49.0 Normal >35 2 0 Sodium Level 142 mEq/L Normal 136-145 Potassium Serum 4.1 mEq/L Normal 3.5-5.1 Chloride Level 107 mEq/L Normal 98-107 Carbon Dioxide Level 29 mEq/L Normal 21-32 Anion Gap 6 mEq/L Low 8-16 Calcium Level 8.4 mg/dL Low 8.8-10.2 Complete Blood Count 08/21/2020 [facility] Track Inspecting Supervisor: [place] [address] [phone] WBC 5.5 x10*3/UL 4.1 - 10.9 21 RBC 3.93 x10*6/UL Low 4.20 - 6.30 [...] 2.0 - 7.8 Laboratory test finding 08/21/2020 [facility] Track Inspecting Supervisor: [place] [address] [phone] B-Type Natriuretic Peptide 706.0 pg/mL High 0.0 - 100.0 Basic Metabolic Panel 08/21/2020 [facility] Track Inspecting Supervisor: [place] [address] [phone] Glucose 109 mg/dL High 74 - 99 22 BUN 27 mg/dL High 7 - 18 Creatinine 1.3 mg/dL 0.6 - 1.3 Sodium 143 mEq/L 136 - 145 Potassium 4.7 mEq/L 3.5 - 5.1 Chloride 106 mEq/L 98 - 107 Carbon Dioxide 30 mEq/L 21 - 32 Calcium 9.0 mg/dL 8.5 - 10.1 GFR 52 mL/min Low >60 GFR >= 60 mL/min >60 23 1 Negative results do not prec lude influenza or RSV virus infection and should not be used as the sole basis for treatment or other patient management decisions. 2 Negative results do not prec lude influenza or RSV virus infection and should not be used as the sole basis for treatment or other patient management decisions. 3 Negative results do not prec lude influenza or RSV virus infection and should not be used as the sole basis for treatment or other patient management decisions. 4 A false negative result may occur if [...] pathogens. DISCLAIMER: Testing was performed using the [employer] SARS-CoV-2 test. This test was developed and its performance characteristics determined by [employer]. This test has not been FDA cleared [...] the authorization is terminated or revoked sooner. 5 note:<nlbl:demographic_chang ed> note:<nlbl:demographic_changed> note:<nlbl:demographic_changed> 6 note:<nlbl:demographic_chang ed> note:<nlbl:demographic_changed> note:<nlbl:demographic_changed> 7 FULL REPORT IN LAB NOTES (eC W [...] NEGATIVE ICR test is considered CLIDAMYCIN SENSITIVE. 8 NOTE: CBC VERIFIED 9 100-125 mg/dL PRE-DIABET ES/FASTING >126 mg/dL DIABETES/FASTING 10 NOTE: BUN,CREAT,ALB,T.PROTEIN VERIFIED 11 NOTE: RESULT VERIFIED. 12 CHRONIC KIDNEY DISEASE STAGI NG PER NKF STAGE I & II GFR >= 60 NORMAL TO MILDLY DECREASED STAGE III GFR 30-59 MODERATELY DECREASED STAGE IV GFR 15-29 SEVERELY DECREASED STAGE V GFR <15 VERY LITTLE GFR LEFT ESRD GFR <15 ON FRIT BURNER 13 note:<nlbl:demographic_chang ed> 14 NOTE: RESULT VERIFIED. 15 100-125 mg/dL PRE-DIABET ES/FASTING >126 mg/dL DIABETES/FASTING 16 CHRONIC KIDNEY DISEASE STAGI NG PER NKF STAGE I & II GFR >= 60 NORMAL TO MILDLY DECREASED STAGE III GFR 30-59 MODERATELY DECREASED STAGE IV GFR 15-29 SEVERELY DECREASED STAGE V GFR <15 VERY LITTLE GFR LEFT ESRD GFR <15 ON FRIT BURNER 17 This respiratory PCR panel d etects Influenza A H1, H3 and 2009 H1 viruses, Influenza B virus, Resp iratory Syncytial Virus, Human metapneumovirus, Parainfluenza virus 1, 2, 3 and 4, Adenovirus, Rhinovirus/Enterovirus, Coronavirus HKU1, NL63, OC43, 229E and SARS-CoV-2 (COVID 19), Bordetella pertussis, Bordetella parapertussis, Mycoplasma pneumoniae and Chlamydia pneumoniae. NEGATIVE by MULTIPLEXED NUCLEIC ACID PCR SARS-CoV-2 (COVID 19) NEGATIVE - SARS-CoV-2 (COVID19) 18 DIAGNOSIS CRITERIA MMB ng/ml Relative Index (RI) NON-AMI < or = 5 N/A CANTU ZONE > 5 < or = 4 AMI > 5 > 4 19 Troponin I Reference Interva l for [place] LOCI: 99th Percentile= 0.00-0.045 ng/ml Risk Stratification: <= 0.10 ng/ml Decreased Risk for Adverse Clinical Events. 0.10-1.50 ng/ml Increased Risk for Adv erse Clinical Events. Evaluation of additional criterion and/or repeat testing in 2-6 hours is suggested to rule out myocardial damage. >= 1.50 ng/ml Indicative of Myocardial Injury. 20 Units are mL/min/1.73 m2 Chronic Kidney Disease Staging per NKF: Stage I & II GFR >=60 Normal to Mildly Decreased Stage III GFR 30-59 Moderately Decreased Stage IV GFR 15-29 Severely Decreased Stage V GFR <15 Very Little GFR Left ESRD GFR <15 on FRIT BURNER 21 NOTE: CBC VERIFIED 22 100-125 mg/dL PRE-DIABET ES/FASTING >126 mg/dL DIABETES/FASTING 23 CHRONIC KIDNEY DISEASE STAGI NG PER NKF STAGE I & II GFR >= 60 NORMAL TO MILDLY DECREASED STAGE III GFR 30-59 MODERATELY DECREASED STAGE IV GFR 15-29 SEVERELY DECREASED STAGE V GFR <15 VERY LITTLE GFR LEFT ESRD GFR <15 ON FRIT BURNER Procedures Date Code Description Status 11/09/2020 56792 Trans Care SRV W/I 14D Of DC, Co mm W/I 2 Dys Med Rec Completed 09/07/2020 11528 Aggarwal Cre SRV W/I 7 Days Of DC, C omm W/I 2 Dys Med Rec Completed 09/04/2020 [id number] Diabetic Foot Exam Completed 08/21/2020 76297 Office/Outpatient Established Mo d MDM 30-39 Min Completed 07/09/2020 52816 Trans Care SRV W/I 14D Of DC, Co mm W/I 2 Dys Med Rec Completed Medical Devices Description No Information Available Encounters Type Date Location Provider Dx Diagnosis Office Visit 11/09/2020 11:00a [place] [facility] sahu DO I47.2 Ventricular tachycardia I48.0 Paroxysmal atrial fibrillati on 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 I73.9 Peripheral vascular disease, unspecified I44.2 Atrioventricular block, comp lete 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, 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 E03.9 Hypothyroidism, unspecified Office Visit 09/07/2020 11:00a [place] [facility] sahu DO J18.9 Pneumonia, unspecified organism I73.9 Peripheral vascular disease, unspecified I50.41 Acute combined systolic and diastolic (congestive) hrt fail I48.0 Paroxysmal atrial fibrillati on 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 I44.2 Atrioventricular block, comp lete 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 M21.372 Foot drop, left foot N40.0 Benign prostatic hyperplasia without lower urinry tract symp Office Visit 08/21/2020 2:00p [place] Burton Carter DO I73.9 Peripheral vascular disease, unspecified M21.372 Foot drop, left foot 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 I50.33 Acute on chronic diastolic ( congestive) heart failure I48.0 Paroxysmal atrial fibrillati on 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 Office Visit 07/09/2020 11:00a [place] [facility] sahu DO J18.1 Lobar pneumonia, unspecified organism M21.372 Foot drop, left foot S93.602A Unspecified sprain of left f oot, initial encounter W01.0xxA Fall same lev from slip/trip w/o strike against object, init I48.0 Paroxysmal atrial fibrillati on 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 R53.1 Weakness Assessments Date Code Description Provider 11/09/2020 I47.2 Ventricular tachycardia Soraya Drummond shreyascorey,DO 11/09/2020 I48.0 Paroxysmal atrial fibrillation L yuliet Rooney,DO 11/09/2020 Z79.01 longterm (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 antic oagulants Soraya Carlos,DO 11/09/2020 I73.9 Peripheral vascular disease, uns pecified Soraya Carlos,DO 11/09/2020 I44.2 Atrioventricular block, complete Soraya Carlos,DO 11/09/2020 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r Melida huangfior Carlos,DO 11/09/2020 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 Soraya Carlos,DO 11/09/2020 M48.062 Spinal stenosis, lumbar region w ith neurogenic claudication Soraya Carlos,DO 11/09/2020 E03.9 Hypothyroidism, unspecified Antoni fior Carlos,DO 09/07/2020 J18.9 Pneumonia, unspecified organism Soraya Carlos,DO 09/07/2020 I73.9 Peripheral vascular disease, uns pecified Soraya Carlos,DO 09/07/2020 I50.41 Acute combined systo lic (congestive) and diastolic (congestive) heart failure Soraya Carlos,DO 09/07/2020 I48.0 Paroxysmal atrial fibrillation L yuliet Carlos,DO 09/07/2020 Z79.01 longterm (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 antic oagulants Soraya Carlos,DO 09/07/2020 I44.2 Atrioventricular block, complete Soraya Carlos,DO 09/07/2020 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r Melida huangfior Carlos,DO 09/07/2020 M21.372 Foot drop, left foot Soraya [place] ,DO 09/07/2020 N40.0 Benign prostatic hyp erplasia without lower urinary tract symptoms Soraya Rooney,DO 08/21/2020 I73.9 Peripheral vascular disease, uns pecified Soraya [place],DO 08/21/2020 M21.372 Foot drop, left foot Soraya [place] ,DO 08/21/2020 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 Tamra Triplett O 08/21/2020 I50.33 Acute on chronic diastolic (michel estive) heart failure Soraya Rooney,DO 08/21/2020 I48.0 Paroxysmal atrial fibrillation L yuliet Rooney,DO 08/21/2020 I25.10 Atherosclerotic hear t disease of [place] coronary artery without angina pectoris Soraya Rooney,DO 08/21/2020 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r Melida Rooney,DO 07/09/2020 J18.1 Lobar pneumonia, unspecified org anism Soraya Rooney,DO 07/09/2020 M21.372 Foot drop, left foot Soraya Rooney ,DO 07/09/2020 S93.602A Unspecified sprain of left foot, initial encounter Soraya Rooney,DO 07/09/2020 W01.0xxA Fall on same level f rom slipping, tripping and stumbling without subsequent striking against object, initial encounter Soraya Rooney,DO 07/09/2020 I48.0 Paroxysmal atrial fibrillation L yuliet Rooney,DO 07/09/2020 I25.10 Atherosclerotic hear t disease of [place] coronary artery without angina pectoris Soraya Rooney,DO 07/09/2020 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r Melida Rooney,DO 07/09/2020 R53.1 Weakness Soraya Rooney DO Plan of Treatment Future Appointment(s):* 12/07/2020 1:30 pm - Soraya Rooney DO at [facility] 09/27/2020 - Soraya Rooney DO* All * New Medication:* Augmentin 500-125 mg - 1 by mouth twice a day with food for 10days Functional Status Description No Information Available Mental Status Description No Information Available Referrals Refer to Dr Reason for Referral Status Appt Date Roger Case MD CONSULT FOR PVD Patient Notified 10/10/2020 [facility] [address] ,[address] [place] [address] [phone] David Arevalo DPM CONSULT FOR BUNIONS AND NAIL CARE Created [address] [place] [address] [phone]
--- OUTSIDE RECORDS SUMMARY | 2021-02-27 09:29 | CCD ---
Author Author [facility] Organization [facility] Address Unknown Phone Unavailable Care Team Providers Care Computer Technologist Name Role Phone Andrew Naman Unavailable PROBLEMS Type Condition ICD9-CM Code [id number] Code Onset Dates Condition S tatus W/U Status Risk SNOMED Code Notes Problem Other specified hypothyroidism E03.8 Active confir med 73250455 Problem Esophageal dysphagia R13.10 Active confirmed 03060516 Problem Benign prostatic hyperplasia , unspecified whether lower urinary tract symptoms present N40.0 Active confirmed 248044588 Problem Cerebral vascular disease I67.9 Active confirmed 70755518 Problem Essential hypertension I10 Active confirmed 95463906 Problem History of bladder cancer Z85.51 Active confirmed 266378930 Problem Abdominal aortic aneurysm (AAA) without rupture I7 1.4 Active confirmed 36811541 Problem Peripheral polyneuropathy G62.9 Active confirmed 36255933 Problem Coronary artery disease invo lving [place] heart, angina presence unspecified, unspecified vessel or lesion type I25.10 Act wili confirmed 67079622 Problem Malignant neoplasm of urinary bladder, unspecified site C67.9 Active confirmed [id number] ALLERGIES No Known Allergies ENCOUNTERS from 1933 to 2020-12-04 Encounter Location Date Provider Diagnosis [facility] [address] [facility] [address] [phone] [place] [address] Nov, Naman Morales Benign prostatic hyperplasia, unspecifie d whether lower urinary tract symptoms present N40.0 IMMUNIZATIONS No Information SOCIAL HISTORY Tobacco Use: Social History Observation Description Date Details (start date - stop date) Former Smoker Sex Assigned At : Social History Observation Description Sex Assigned At Unknown Language: Question Answer Notes Languages spoken: Polish Cheondoism: Question Answer Notes Cheondoism No hindu beliefs that would impact health care. Alcohol Screening: Question Answer Notes Did you have a drink containing alcohol in the past year? No Points 0 Interpretation Negative Tobacco Use: Question Answer Notes Are you a: former smoker How long has it been since you last smoked? last smoked 17-18 years ago REASON FOR REFERRAL No Information VITAL SIGNS No information MEDICATIONS Medication SIG (Take, Route, Frequency, Duration) Notes Start Da te End Date Status Atorvastatin Calcium 10 MG 1 tablet Orally Once a day for 30 day(s) Active Aspirin 81 MG 1 tablet Orally Once a day Active Ferrous Gluconate 325 MG as directed Orally Active Metoprolol Succinate 50 MG 1 capsule Orally Once a day Not-Taking Levothyroxine Sodium 50 MCG 1 tablet in the morning on an empty stomach Orally Once a day Active Acetaminophen 325 MG 1 tablet as needed Orally every 4 hrs Not-Taking Pregabalin 100 MG 1 capsule Orally Once a day Active Albuterol Sulfate (5 MG/ML) 0.5% as directed Inhalation Not-Taking Tamsulosin HCl 0.4 MG 1 capsule Orally Once a day Active Brooke-Bid Probiotic - as directed Orally Not-Taking Bactrim DS 800-160 MG 1 tablet Orally -1 1 hour prior to cystosc opy Feb, Not-Taking Potassium Chloride Eliza ER 10 MEQ 1 tablet with food O rally Twice a day for 30 day(s) Active Doxycycline Monohydrate 100 MG 1 capsule Orally Once a day for 10 day (s) Active Allopurinol 300 MG 1 tablet Orally Once a day for 30 day(s) Not-Taking Finasteride 5 MG 1 tablet Orally Once a day for 90 day(s) Feb, Active Metoprolol Succinate ER 50 MG 1 tablet Orally Once a day Active Centrum - as directed Orally Active Torsemide 10 MG 1 tablet Orally Once a day for 30 day(s) Active Finasteride 5 MG 1 tablet Orally Once a day Active Eliquis 5 MG as directed Orally Twice daily for 30 days Active Simvastatin 20 MG 1 tablet in the evening Orally Once a day Not-Taking Lothian-3 & Lothian-6 Fish Oil 1,000 mg 1 tab orally three times daily Active PROCEDURES No Information RESULTS No Results REASON FOR VISIT finasteride MEDICAL (GENERAL) HISTORY Type Description Date Medical History prostate cancer Medical History A.fib on anticoagulation Medical History CHF Medical History Coronary artery disease s/p triple by-pa ss Medical History Recurrent pneumonia Medical History HTN Medical History TIA Medical History AAA Medical History Spinal stenosis Medical History Broken wrist Medical History ?cholecystitis(Hx of cholecy stectomy, daughter reported gallbladder infection Hx leading to sepsis prior) Medical History Bladder malignancy in remission s/p chem otherapy in 2018 Surgical History Cataract surgery 2004 Surgical History TURP 2005 Surgical History Open heart triple bypass 2006 Surgical History Abdominal aneurysm surgery by Dr. Zeke Disla 2006 Surgical History Back surgery for spinal stenosis 2007 Surgical History Prostate surgery 2008 Surgical History Colonoscopy 2009 Surgical History Broken wrist repair Dr. Win 2011 Surgical History Cholecystectomy 2011 Surgical History Heart monitor implanted 2012 Surgical History Heart monitor removed and pacemaker impl anted [address] Gabriel Surgical History bladder surgery 2018 Surgical History hernia surgery Hospitalization History Aspiration pnemonia 12/29/2019 Hospitalization History surgery related Hospitalization History pneumonia x2 [facility] Goals Section No Information Health Concerns No Information MEDICAL EQUIPMENT No Information MENTAL STATUS No Information FUNCTIONAL STATUS No Information ASSESSMENTS Encounter Date Diagnosis Assessment Notes Treatment Notes Treatm ent Clinical Notes Nov, Benign prostatic hyperplasia , unspecified whether lower urinary tract symptoms present (ICD-10 - N40.0) PLAN OF TREATMENT Medication Medication Name Sig Start Date Stop Date Finasteride 5 MG 1 tablet Orally Once a day Finasteride 5 MG 1 tablet Orally Once a day for 90 day(s) Feb Next Appt Details Provider Name:Naman Ulysses Morales, 11:00:00 AM, [address], , [place], [address], Insurance Providers Payer Name Payer Address Payer Phone Insured Name Patient Relati onship to Insured Coverage Start Date Coverage End Date MEDICARE Part A and B [address] [facility] [id number] ELIZABETH BURT BCBS [place] PPO [id number] [facility] [employer] [facility] [place] [id number] ELIZABETH BURT
--- OUTSIDE RECORDS SUMMARY | 2021-02-27 09:29 | CCD | Continuity of Care Document ---
Author Author Trevor ROONEY Organization Unknown Address [address] [facility] [address] [place] [address] Phone [phone] Care Team Providers Care Banquet Director Name Role Phone Soraya Rooney DO AUTM Unavailable Adam Llanos M.D. - Computer Technical Support Specialist AUTM [phone] [facility] Hea AUTM [phone] Problems Description No Information Available Social History [...] Rooney DO 11/28/2020 Torsemide 10mg Tablets 1 every day by mouth 90tabs Soraya Rooney DO 09/07/2020 Ferrous Gluconate 324(38Fe) mg Tab lets 1 by mouth every day 30tabs Soraya Rooney DO 09/07/2020 Atorvastatin Calcium 20mg Tablets 1 by mouth every day 30tabs Soraya Rooney DO 08/21/[address] 1 by mouth every day Soraya Rooney DO 02/17/2020 Centrum Silver 50+Men 50+Men Table ts 1 by mouth every day Soraya Rooney DO 02/17/2020 Fish Oil 1200mg Capsules 2 by mouth every day Soraya Rooney DO 02/17/2020 Pantoprazole Sodium 40mg Tablets D R 1 by mouth every day 90tabs Soraya Rooney DO 02/17/2020 Tamsulosin HCL 0.4mg Capsules 1 daily 1/2 hour after same meal 90caps Soraya Rooney DO 02/17/2020 Pregabalin 75mg Capsules 1 in pm [facility] Blake Lewis M.D. 02/17/2020 Levothyroxine Sodium 112mcg Tablet s 1 by mouth every day 90tabs Soraya Rooney,DO 02/17/2020 Finasteride 5mg Tablets 1 by mouth every day 90tabs Soraya Rooney,DO 02/17/2020 Eliquis 2.5mg Tablets 1 by mouth twice a day 180tabs Soraya Rooney,DO 02/17/2020 Fluticasone Propionate 50mcg/Act Suspension 2 sprays each nostril daily Unknown Chlorhexidine Gluconate 0.12% Solu tion tid Unknown Amiodarone HCL 200mg Tablets Theryapy Per Cardiology 1 tid 2 Weeks Theb bid X Weeks Then qd Unknown Bacid Tablets every day Unknown Doxycycline Hyclate 100mg Capsules one tab twice a day for 10 days Unknown Cefdinir 300mg Capsules take one capsule by mouth twice a day for 10 days Unknown Miralax 17gm Packet 17 grams in liquid as directed every day as needed Unknown History Medications Augmentin 500-125mg Tablets 1 [...] Available Vital Signs Date Vital Result Comment 12/07/2020 1:35pm BP Systolic 102 mmHg BP Diastolic 56 mmHg Heart Rate 56 /min Height 70 inches 5'10" Weight 202.00 lb BMI (Body Mass Index) 29.0 kg/m2 11/09/2020 11:02am BP Systolic 108 mmHg RT Arm BP Diastolic 42 mmHg RT Arm Heart Rate 56 /min Height 70 inches 5'10" Weight 204.38 lb O2 % BldC Oximetry 91 % RM Air BMI (Body Mass Index) 29.3 kg/m2 Results Test Acquired Date Facility Test Result H/L Range Note Laboratory test finding 12/07/2020 [place] [address] [phone] Ferritin <pending> Laboratory test finding 12/07/2020 [facility] Md Associate: [place] [address] [phone] B-Type Natiuretic Peptide <pending> Magnesium, Serum <pending> Laboratory test finding 12/07/2020 [facility] Md Associate: [place] [address] [phone] TSH <pending> Ua W/ Reflex To Culture 11/30/2020 [place] [address] [phone] Appearance, Urine RFX CLEAR Normal Clear Color, Urine RFX YELLOW Normal Yellow PH,Urine RFX 8.0 units Normal 5.0-9.0 Specific Success Ur Auto RFX 1.021 Normal 1.002-1.035 Protein, [...] Urine Auto RFX 0 /LPF Normal 0-1 Influenza A/B RSV Covid Amp 11/30/2020 [facility] [address] [place] [address] [phone] Influenza A Amplification NEGATIVE Normal Negati ve 1 Influenza B Amplification NEGATIVE Normal Negative 2 RSV Amplification NEGATIVE Normal Negative 3 Sars Covid-19 Amplification NEGATIVE Normal Negative 4 Istat Chem8+ Panel 11/30/2020 [facility] nter [address] [place] [address] [phone] iSTAT HCT 33.0 % Low 38.0-51.0 iSTAT Glucose 108 mg/dL High 70-105 iSTAT Sodium 141 mEq/L Normal 136-145 iSTAT Potassium 4.7 mEq/L Normal 3.5-5.1 iSTAT CA++ 4.6 mg/dL Normal 4.5-5.3 iSTAT Chloride 101 mEq/L Normal 98-109 iSTAT Co2 28.0 MM/L High 23.0-27.0 iSTAT BUN 28 mg/dL High 8-26 iSTAT Creatinine 1.4 mg/dL High 0.6-1.3 CBC With Differential 11/30/2020 [facility] [address] [place] [address] [phone] White Blood Count 9.2 10 Normal 4.0-10.0 [...] 36.0-66.0 Lymph % 16.9 % Low 24.0-44.0 Bryan % 7.2 % Normal 2.0-8.0 Eos % 2.8 % Normal 0.0-3.0 Baso % 0.5 % Normal 0.0-1.0 Immature Granulocyte % 0.3 % Normal 0-3.0 Nucleated Red Blood Cell % 0.0 % Normal 0-0 Neutrophils # 6.7 10 Normal 1.5-8.5 Lymph # 1.6 10 Normal 1.5-5.0 Bryan # 0.7 10 Normal 0.0-0.8 Eos # 0.3 10 Normal 0.0-0.5 Baso # 0.1 10 Normal 0.0-0.2 Liver Profile 11/30/2020 [facility] nter [address] [place] [address] [phone] Ast/Sgot 34 U/L Normal 7-37 Alt/SGPT 27 U/L Normal 12-78 Alkaline Phosphatase 139 U/L High 45-117 Bilirubin,Total 0.6 mg/dL Normal 0.2-1.0 Bilirubin,Direct 0.2 mg/dL Normal 0.0-0.2 Total Protein 7.8 GM/DL Normal 6.4-8.2 Albumin 2.7 GM/DL Low 3.2-5.2 Albumin/Globulin Ratio 0.5 Normal Laboratory test finding 11/30/2020 [facility] [address] [place] [address] [phone] Lipase 172 U/L Normal 73-393 5 NT-Pro BNP 1331 pg/mL High <450 6 Complete Blood Count 09/27/2020 [facility] Md Associate: [place] [address] [phone] WBC 6.5 x10*3/UL 4.1 - 10.9 7 RBC 3.88 x10*6/UL Low 4.20 - 6.30 [...] x10*3/UL 2.0 - 7.8 Laboratory test finding 09/27/2020 [facility] [address] [place] [address] [phone] C Reactive Protein Quantitativ 0.46 mg/dL High 0 .00-0.30 8 Comprehensive Chem Profile 09/27/2020 [facility] Md Associate: [place] [address] [phone] Glucose 127 mg/dL High 74 - 99 [...] Low >60 12 Laboratory test finding 09/27/[address] [address] [phone] Wound Culture FULL REPORT IN L <SEE NOTE> Normal 13 Complete Blood Count 09/07/2020 [facility] Md Associate: [place] [address] [phone] WBC 7.9 x10*3/UL 4.1 - 10.9 RBC [...] 2.0 - 7.8 Basic Metabolic Panel 09/07/2020 [facility] Md Associate: Dr Basilio Sena [place], [place] [address] [phone] Glucose 109 mg/dL High 74 - 99 [...] 60 mL/min >60 16 Respiratory Panel 08/29/2020 [facility] nter [address], [place] [address] [phone] Respiratory Panel This respiratory <SEE NOTE> 17 Cardiac Marker Panel 08/29/2020 [facility] enter [address], [place] [address] [phone] CPK Creatine Phosphokinase 39 U/L Normal 39-30 8 CK-MB Value Mass < 1.0 NG/ML Normal <3.6 MB/CK Relative Index 2.56 Normal < Or =4 18 Troponin I < 0.02 NG/ML Normal < 0.10 19 Liver Profile 08/29/2020 [facility] nter [address] [place] [address] [phone] Ast/Sgot 32 U/L Normal 7-37 Alt/SGPT 25 U/L Normal 12-78 Alkaline Phosphatase 154 U/L High 45-117 Bilirubin,Total 1.5 mg/dL High 0.2-1.0 Bilirubin,Direct 0.6 mg/dL High 0.0-0.2 Total Protein 7.3 GM/DL Normal 6.4-8.2 Albumin 3.2 GM/DL Normal 3.2-5.2 Albumin/Globulin Ratio 0.8 Normal Basic Metabolic Profile 08/29/2020 [facility] [address] [place] [address] [phone] Glucose, Fasting 110 mg/dL High 70-100 Blood [...] mg/dL Low 8.8-10.2 Complete Blood Count 08/21/2020 [facility] Md Associate: [place] [address] [phone] WBC 5.5 x10*3/UL 4.1 - 10.9 21 [...] 2.0 - 7.8 Laboratory test finding 08/21/2020 [facility] Md Associate: Dr [place]ilio [place] [address] [phone] B-Type Natriuretic Peptide 706.0 pg/mL High 0.0 - 100.0 Basic Metabolic Panel 08/21/2020 [facility] Md Associate: Dr Basilio [place] [address] [phone] Glucose 109 mg/dL High 74 - 99 [...] pathogens. DISCLAIMER: Testing was performed using the [employer] SARS-CoV-2 test. This test was developed and its performance characteristics determined by [employer]. This test has not been FDA cleared [...] note:<nlbl:demographic_changed> 6 note:<nlbl:demographic_chang ed> note:<nlbl:demographic_changed> note:<nlbl:demographic_changed> 7 NOTE: CBC VERIFIED 8 note:<nlbl:demographic_chang ed> 9 100-125 mg/dL PRE-DIABET ES/FASTING >126 mg/dL DIABETES/FASTING 10 NOTE: BUN,CREAT,ALB,T.PROTEIN VERIFIED 11 NOTE: RESULT VERIFIED. 12 CHRONIC KIDNEY DISEASE STAGI NG PER NKF STAGE I & II GFR >= 60 NORMAL TO MILDLY DECREASED STAGE III GFR 30-59 MODERATELY DECREASED STAGE IV GFR 15-29 SEVERELY DECREASED STAGE V GFR <15 VERY LITTLE GFR LEFT ESRD GFR <15 ON STAVE MILL HAND 13 FULL REPORT IN LAB NOTES (eC W [...] NEGATIVE ICR test is considered CLIDAMYCIN SENSITIVE. 14 NOTE: RESULT VERIFIED. 15 100-125 mg/dL PRE-DIABET ES/FASTING >126 mg/dL DIABETES/FASTING 16 CHRONIC KIDNEY DISEASE STAGI NG PER NKF STAGE I & II GFR >= 60 NORMAL TO MILDLY DECREASED STAGE III GFR 30-59 MODERATELY DECREASED STAGE IV GFR 15-29 SEVERELY DECREASED STAGE V GFR <15 VERY LITTLE GFR LEFT ESRD GFR <15 ON STAVE MILL HAND 17 This respiratory PCR panel d etects [...] 19 Troponin I Reference Interva l for [place] LOCI: 99th Percentile= 0.00-0.045 ng/ml Risk Stratification: [...] Little GFR Left ESRD GFR <15 on STAVE MILL HAND 21 NOTE: CBC VERIFIED 22 100-125 mg/dL PRE-DIABET ES/FASTING >126 mg/dL DIABETES/FASTING 23 CHRONIC KIDNEY DISEASE STAGI NG PER NKF STAGE I & II GFR >= 60 NORMAL TO MILDLY DECREASED STAGE III GFR 30-59 MODERATELY DECREASED STAGE IV GFR 15-29 SEVERELY DECREASED STAGE V GFR <15 VERY LITTLE GFR LEFT ESRD GFR <15 ON STAVE MILL HAND Procedures Date Code Description Status 11/09/2020 28202 Trans Care SRV W/I 14D Of DC, Co mm W/I 2 Dys Med Rec Completed 09/07/2020 76125 [address] SRV W/I 7 Days Of DC, C omm W/I 2 Dys Med Rec Completed 09/04/2020 [id number] Diabetic Foot Exam Completed 08/21/2020 62186 Office/Outpatient Established Mo d MDM 30-39 Min Completed 07/09/2020 97886 Trans Care SRV W/I 14D Of DC, Co mm W/I 2 Dys Med Rec Completed Medical Devices Description No Information Available Encounters Type Date Location Provider Dx Diagnosis Office Visit 11/09/2020 11:00a [facility], PRegina Rooney DO I47.2 Ventricular tachycardia I48.0 Paroxysmal atrial fibrillati on Z79.01 long-term (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 a nticoagulants I73.9 Peripheral vascular disease, unspecified I44.2 Atrioventricular block, comp lete 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, 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 E03.9 Hypothyroidism, unspecified Office Visit 09/07/2020 11:00a [facility] PRegina Rooney DO J18.9 Pneumonia, unspecified organism I73.9 Peripheral vascular disease, unspecified I50.41 Acute combined systolic and diastolic (congestive) hrt fail I48.0 Paroxysmal atrial fibrillati on 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 I44.2 Atrioventricular block, comp lete 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 M21.372 Foot drop, left foot N40.0 Benign prostatic hyperplasia without lower urinry tract symp Office Visit 08/21/2020 2:00p [facility]ryn Rooney ,DO I73.9 Peripheral vascular disease, unspecified M21.372 Foot drop, left foot 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 I50.33 Acute on chronic diastolic ( congestive) heart failure I48.0 Paroxysmal atrial fibrillati on 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 Office Visit 07/09/2020 11:00a [facility].CCathryn RooneyDO J18.1 Lobar pneumonia, unspecified organism M21.372 Foot [...] Description Provider 11/09/2020 I47.2 Ventricular tachycardia Soraya chapman,DO 11/09/2020 I48.0 Paroxysmal atrial fibrillation Ulysses Rooney,DO 11/09/2020 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 Soraya oRoney,DO 11/09/2020 I73.9 Peripheral vascular disease, uns pecified Soraya Rooney,DO 11/09/2020 I44.2 Atrioventricular block, complete Soraya Rooney,DO 11/09/2020 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r Melida Rooney,DO 11/09/2020 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 Soraya Rooney,DO 11/09/2020 M48.062 Spinal stenosis, lumbar region w ith neurogenic claudication Soraya Rooney,DO 11/09/2020 E03.9 Hypothyroidism, unspecified Antoni Rooney,DO 09/07/2020 J18.9 Pneumonia, unspecified organism Soraya Rooney,DO 09/07/2020 I73.9 Peripheral vascular disease, uns pecified Soraya Rooney,DO 09/07/2020 I50.41 Acute combined systo lic (congestive) and diastolic (congestive) heart failure Soraya Rooney,DO 09/07/2020 I48.0 Paroxysmal atrial fibrillation L yuliet Rooney,DO 09/07/2020 Z79.01 long-term (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 antic oagulants Soraya Rooney,DO 09/07/2020 I44.2 Atrioventricular block, complete Soraya Rooney,DO 09/07/2020 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r Melida Rooney,DO 09/07/2020 M21.372 Foot drop, left foot Soraya Rooney ,DO 09/07/2020 N40.0 Benign prostatic hyp erplasia without lower urinary tract symptoms Soraya Rooney,DO 08/21/2020 I73.9 Peripheral vascular disease, uns pecified Soraya Rooney,DO 08/21/2020 M21.372 Foot drop, left foot Soraya Rooney ,DO 08/21/2020 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 Soraya Rooney,D O 08/21/2020 I50.33 Acute on chronic diastolic (michel estive) heart failure Soraya Rooney,DO 08/21/2020 I48.0 Paroxysmal atrial fibrillation L yuliet Rooney,DO 08/21/2020 I25.10 Atherosclerotic hear t disease of [place] coronary artery without angina pectoris Soraya Rooney,DO [...] 07/09/2020 I25.10 Atherosclerotic hear t disease of [place] coronary artery without angina pectoris Soraya Rooney,DO 07/09/2020 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r Melida Rooney DO 07/09/2020 R53.1 Weakness Soraya Rooney DO Plan of Treatment 09/27/2020 - Soraya Rooney DO* All * New Medication:* Augmentin 500-125 mg - 1 by mouth twice a day with food for 10days Functional Status Description No Information Available Mental Status Description No Information Available Referrals Refer to Dr Reason for Referral Status Appt Date Roger Case MD CONSULT FOR PVD Patient Notified 10/10/2020 [facility] [address] [facility] [address] [phone] David Arevalo DPM CONSULT FOR BUNIONS AND NAIL CARE Created [address] [place] [address] [phone]
--- OUTSIDE RECORDS SUMMARY | 2021-02-27 09:29 | CCD | Continuity of Care Document ---
Author Author Trevor ROONEY Organization Unknown Address [address] [facility] [address] [place] [address] Phone [phone] Care Team Providers Care Floor Renovator Name Role Phone Soraya Rooney DO AUTM Unavailable Adam Llanos M.D. - Senior Linux Systems Engineer AUTM [facility] AUTM [phone] Problems Description No Information Available Social History [...] Note Influenza A/B RSV Covid Amp 11/30/2020 [facility] [address] [place] [address] [phone] Influenza A Amplification NEGATIVE Normal Negati ve 1 Influenza B Amplification NEGATIVE Normal Negative 2 RSV Amplification NEGATIVE Normal Negative 3 Sars Covid-19 Amplification NEGATIVE Normal Negative 4 Istat Chem8+ Panel 11/30/2020 [facility] [address] [id number] [phone] iSTAT HCT 33.0 % Low 38.0-51.0 iSTAT Glucose 108 mg/dL High 70-105 iSTAT Sodium 141 mEq/L Normal 136-145 iSTAT Potassium 4.7 mEq/L Normal 3.5-5.1 iSTAT CA++ 4.6 mg/dL Normal 4.5-5.3 iSTAT Chloride 101 mEq/L Normal 98-109 iSTAT Co2 28.0 MM/L High 23.0-27.0 iSTAT BUN 28 mg/dL High 8-26 iSTAT Creatinine 1.4 mg/dL High 0.6-1.3 CBC With Differential 11/30/2020 [facility] [address] [id number] [phone] White Blood Count 9.2 10 Normal 4.0-10.0 [...] 36.0-66.0 Lymph % 16.9 % Low 24.0-44.0 Loíza % 7.2 % Normal 2.0-8.0 Eos % 2.8 % Normal 0.0-3.0 Baso % 0.5 % Normal 0.0-1.0 Immature Granulocyte % 0.3 % Normal 0-3.0 Nucleated Red Blood Cell % 0.0 % Normal 0-0 Neutrophils # 6.7 10 Normal 1.5-8.5 Lymph # 1.6 10 Normal 1.5-5.0 Loí[place] # 0.7 10 Normal 0.0-0.8 Eos # 0.3 10 Normal 0.0-0.5 Baso # 0.1 10 Normal 0.0-0.2 Liver Profile 11/30/2020 [facility] [address] [place] [address] [phone] Ast/Sgot 34 U/L Normal 7-37 Alt/SGPT 27 U/L Normal 12-78 Alkaline Phosphatase 139 U/L High 45-117 Bilirubin,Total 0.6 mg/dL Normal 0.2-1.0 Bilirubin,Direct 0.2 mg/dL Normal 0.0-0.2 Total Protein 7.8 GM/DL Normal 6.4-8.2 Albumin 2.7 GM/DL Low 3.2-5.2 Albumin/Globulin Ratio 0.5 Normal Laboratory test finding 11/30/[address] [address] [phone] Lipase 172 U/L Normal 73-393 5 NT-Pro BNP 1331 pg/mL High <450 6 Ua W/ Reflex To Culture 11/30/[address] [address] [phone] Appearance, Urine RFX CLEAR Normal Clear Color, Urine RFX YELLOW Normal Yellow PH,Urine RFX 8.0 units Normal 5.0-9.0 Specific Ignacio Ur Auto RFX 1.021 Normal 1.002-1.035 Protein, [...] /LPF Normal 0-1 Laboratory test finding 09/27/2020 [facility] [address] [place], [place] [phone] Wound Culture FULL REPORT IN L <SEE NOTE> Normal 7 Complete Blood Count 09/27/[address] [facility] Patcher: [place] [address] [phone] WBC 6.5 x10*3/UL 4.1 - 10.9 8 [...] 2.0 - 7.8 Comprehensive Chem Profile 09/27/2020 [facility]: [place] [address] [phone] Glucose 127 mg/dL High 74 - 99 [...] Low >60 12 Laboratory test finding 09/27/2020 [facility] [address] [place] [address] [phone] C Reactive Protein Quantitativ 0.46 mg/dL High 0 .00-0.30 13 Complete Blood Count 09/07/[address] [facility] Cup[facility] Patcher: [place] [address] [phone] WBC 7.9 x10*3/UL 4.1 - 10.9 RBC [...] 2.0 - 7.8 Basic Metabolic Panel 09/07/2020 [facility] Cup[facility] Patcher: [place] [address] [phone] Glucose 109 mg/dL High 74 - 99 [...] 60 mL/min >60 16 Respiratory Panel 08/29/2020 [place] [address] [phone] Respiratory Panel This respiratory <SEE NOTE> 17 Cardiac Marker Panel 08/29/[address] [address] [phone] CPK Creatine Phosphokinase 39 U/L Normal 39-30 8 CK-MB Value Mass < 1.0 NG/ML Normal <3.6 MB/CK Relative Index 2.56 Normal < Or =4 18 Troponin I < 0.02 NG/ML Normal < 0.10 19 Liver Profile 08/29/2020 [place] [id number] [phone] Ast/Sgot 32 U/L Normal 7-37 Alt/SGPT 25 U/L Normal 12-78 Alkaline Phosphatase 154 U/L High 45-117 Bilirubin,Total 1.5 mg/dL High 0.2-1.0 Bilirubin,Direct 0.6 mg/dL High 0.0-0.2 Total Protein 7.3 GM/DL Normal 6.4-8.2 Albumin 3.2 GM/DL Normal 3.2-5.2 Albumin/Globulin Ratio 0.8 Normal Basic Metabolic Profile 08/29/[address] [address] [phone] Glucose, Fasting 110 mg/dL High 70-100 Blood [...] mg/dL Low 8.8-10.2 Complete Blood Count 08/21/[address] [facility] Cupola Patcher: [place] [address] [phone] WBC 5.5 x10*3/UL 4.1 - 10.9 21 [...] 2.0 - 7.8 Laboratory test finding 08/21/2020 [facility] Cupola Patcher: [place] [address] [phone] B-Type Natriuretic Peptide 706.0 pg/mL High 0.0 - 100.0 Basic Metabolic Panel 08/21/2020 [facility] Cup[facility] Patcher: [place] [address] [phone] Glucose 109 mg/dL High 74 - 99 [...] pathogens. DISCLAIMER: Testing was performed using the [employer] SARS-CoV-2 test. This test was developed and its performance characteristics determined by [employer]. This test has not been FDA cleared [...] LITTLE GFR LEFT ESRD GFR <15 ON [employer]UM[employer] INTELLIGENCE 13 note:<nlbl:demographic_chang ed> 14 NOTE: RESULT VERIFIED. 15 100-125 mg/dL PRE-DIABET ES/FASTING >126 mg/dL DIABETES/FASTING 16 CHRONIC KIDNEY DISEASE STAGI NG PER NKF STAGE I & II GFR >= 60 NORMAL TO MILDLY DECREASED STAGE III GFR 30-59 MODERATELY DECREASED STAGE IV GFR 15-29 SEVERELY DECREASED STAGE V GFR <15 VERY LITTLE GFR LEFT ESRD GFR <15 ON HUMAN INTELLIGENCE 17 This respiratory PCR panel d etects [...] 19 Troponin I Reference Interva l for [place] LOCI: 99th Percentile= 0.00-0.045 ng/ml Risk Stratification: [...] Little GFR Left ESRD GFR <15 on HUMAN INTELLIGENCE 21 NOTE: CBC VERIFIED 22 100-125 mg/dL PRE-DIABET ES/FASTING >126 mg/dL DIABETES/FASTING 23 CHRONIC KIDNEY DISEASE STAGI NG PER NKF STAGE I & II GFR >= 60 NORMAL TO MILDLY DECREASED STAGE III GFR 30-59 MODERATELY DECREASED STAGE IV GFR 15-29 SEVERELY DECREASED STAGE V GFR <15 VERY LITTLE GFR LEFT ESRD GFR <15 ON HUMAN INTELLIGENCE Procedures Date Code Description Status 11/09/2020 12867 [facility] SRV W/I 14D Of DC, Co mm W/I 2 Dys Med Rec Completed 09/07/2020 10808 [address] SRV W/I 7 Days Of DC, C omm W/I 2 Dys Med Rec Completed 09/04/2020 [id number] Diabetic Foot Exam Completed 08/21/2020 12867 Office/Outpatient Established Mo d MDM 30-39 Min Completed 07/09/2020 16334 [facility] Care SRV W/I 14D Of DC, Co mm W/I 2 Dys Med Rec Completed Medical Devices Description No Information Available Encounters Type Date Location Provider Dx Diagnosis Office Visit 11/09/2020 11:00a [facility] DO I47.2 Ventricular tachycardia I48.0 Paroxysmal atrial fibrillati on Z79.01 terminal manager (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 a nticoagulants I73.9 Peripheral vascular disease, unspecified I44.2 Atrioventricular block, comp lete 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, 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 E03.9 Hypothyroidism, unspecified Office Visit 09/07/2020 11:00a [facility] DO J18.9 Pneumonia, unspecified organism I73.9 Peripheral vascular disease, unspecified I50.41 Acute combined systolic and diastolic (congestive) hrt fail I48.0 Paroxysmal atrial fibrillati on Z79.01 terminal manager (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 a nticoagulants I44.2 Atrioventricular block, comp lete 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 M21.372 Foot drop, left foot N40.0 Benign prostatic hyperplasia without lower urinry tract symp Office Visit 08/21/2020 2:00p [facility] Carter DO I73.9 Peripheral vascular disease, unspecified M21.372 Foot drop, left foot 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 I50.33 Acute on chronic diastolic ( congestive) heart failure I48.0 Paroxysmal atrial fibrillati on 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 Office Visit 07/09/2020 11:00a [facility] DO J18.1 Lobar pneumonia, unspecified [...] atrial fibrillation L yuliet Rooney,DO 11/09/2020 Z79.01 penitentiary (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 antic oagulants Soraya Carlos,DO [...] atrial fibrillation L yuliet Carlos,DO 09/07/2020 Z79.01 penitentiary (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 antic oagulants Soraya Carlos,DO [...] 08/21/2020 I25.10 Atherosclerotic hear t disease of [place] coronary artery without angina pectoris Soraya Rooney,DO [...] 07/09/2020 I25.10 Atherosclerotic hear t disease of [place] coronary artery without angina pectoris Soraya Rooney,DO 07/09/2020 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r Melida Rooney,DO 07/09/2020 R53.1 Weakness Soraya Rooney DO Plan of Treatment Future Appointment(s):* 12/07/2020 1:30 pm - Soraya Rooney DO at [facility] 09/27/2020 - Soraya Rooney DO* All * New Medication:* Augmentin 500-125 mg - 1 by mouth twice a day with food for 10days Functional Status Description No Information Available Mental Status Description No Information Available Referrals Refer to Dr Reason for Referral Status Appt Date Roger Case MD CONSULT FOR PVD Patient Notified 10/10/2020 [facility] [address] ,[address] [place] [address] [phone] David Arevalo DPM CONSULT FOR BUNIONS AND NAIL CARE Created [address] [place] [address] [phone]
--- OUTSIDE RECORDS SUMMARY | 2021-02-27 09:29 | CCD | Continuity of Care Document ---
Author Author Trevor ROONEY Organization Unknown Address [address] [facility] [address] [place] [address] Phone [phone] Care Team Providers Care Recreation Therapy Aide Name Role Phone Soraya Rooney DO AUTM Unavailable Adam Llanos M.D. - Plastic Cutter AUTM [facility] AUTM [phone] Problems Description No Information Available Social History Type Date Description Comments Sex Unknown ETOH Use Denies alcohol use Tobacco Use Start: Unknown End: Unknown Patient is a former smoker smoked for 50 years x1 lee ann daily ,quit 2002 Allergies, Adverse Reactions, Alerts Description No Known Drug Allergies Medications Active Medications SIG Qnty Indications Ordering Provide r Date Magnesium Oxide 400mg Tablets 1 by mouth every day 30tabs Soraya Rooney DO 12/07/2020 Levothyroxine Sodium 125mcg Tablet s 1 by mouth every day 90tabs Soraya Rooney,DO 12/07/2020 Senokot 8.6mg Tablets as need ed Soraya Rooney DO 11/28/2020 Torsemide 10mg Tablets 1 every day by mouth 90tabs Soraya Rooney,DO 09/07/2020 Ferrous Gluconate 324(38Fe) mg Tab lets 1 by mouth every day 30tabs Soraya Rooney DO 09/07/2020 Atorvastatin Calcium 20mg Tablets 1 by mouth every day 30tabs Soraya Rooney DO 08/21/2020 Centrum Silver 50+Men 50+Men Table ts 1 by mouth every day Soraya Rooney DO 02/17/[address] 1 by mouth every day Soraya RooneyDO 02/17/2020 Fish Oil 1200mg Capsules 2 by mouth every day Soraya Rooney DO 02/17/2020 Pantoprazole Sodium 40mg Tablets D R 1 by mouth every day 90tabs Soraya Carlos,DO 02/17/2020 Tamsulosin HCL 0.4mg Capsules 1 daily 1/2 hour after same meal 90caps Soraya Carlos,DO 02/17/2020 Pregabalin 75mg Capsules 1 in pm [facility] Blake Lewis M.D. 02/17/2020 Finasteride 5mg Tablets 1 by mouth every day 90tabs Soraya Rooney,DO 02/17/2020 Eliquis 2.5mg Tablets 1 by mouth twice a day 180tabs Soraya Carlos,DO 02/17/2020 Fluticasone Propionate 50mcg/Act Suspension 2 sprays [...] day with food for 10days 20tabs Soraya RooneyDO 09/27/2020 - 11/01/2020 Augmentin 500-125mg Tablets 1 by mouth twice a day with food for 2 days 4tabs Soraya RooneyDO 09/07/2020 - 09/27/2020 Torsemide 20mg Tablets 1 p o daily 30tabs Soraya RooneyDO 08/23/2020 - 09/04/2020 Torsemide 10mg Tablets 2 by mouth every day for 3 days then 1 once a day after that. 30tabs Alla Rooney,DO 08/21/2020 - 08/23/2020 Medications Administered in Office [...] H/L Range Note Laboratory test finding 12/07/2020 [facility] [address] [place] [address] [phone] Ferritin <pending> Complete Blood Count 12/07/2020 [facility] Passenger Car Inspector: [place] [address] [phone] WBC 6.7 x10*3/UL 4.1 - 10.9 1 RBC 3.37 x10*6/UL Low 4.20 - 6.30 [...] 2.0 - 7.8 Laboratory test finding 12/07/2020 [facility] Passenger Car Inspector: [place] [address] [phone] B-Type Natriuretic Peptide 568.0 pg/mL High 0.0 - 100.0 Magnesium 1.7 mg/dL Low 1.8 - 2.4 Comprehensive Chem Profile 12/07/2020 [facility] Passenger Car Inspector: Dr Basilio Sena [place], [place] [id number] [phone] Glucose 118 mg/dL High 74 - 99 2 BUN 35 mg/dL High 7 - 18 [...] Low >60 GFR 43 mL/min Low >60 3 Laboratory test finding 12/07/2020 [facility] Passenger Car Inspector: [place] [address] [phone] Thyroid Stimulating Hormone 5.46 uIU/mL High 0.3 6 - 3.74 Ua W/ Reflex To Culture 11/30/2020 [facility] [address] [id number] [phone] Appearance, Urine RFX CLEAR Normal Clear Color, Urine RFX YELLOW Normal Yellow PH,Urine RFX 8.0 units Normal 5.0-9.0 Specific [place] [facility] RFX 1.021 Normal 1.002-1.035 Protein, [...] 0-1 Influenza A/B RSV Covid Amp 11/30/2020 [facility] [address] [id number] [phone] Influenza A Amplification NEGATIVE Normal Negati ve 4 Influenza B Amplification NEGATIVE Normal Negative 5 RSV Amplification NEGATIVE Normal Negative 6 Sars Covid-19 Amplification NEGATIVE Normal Negative 7 Istat Chem8+ Panel 11/30/2020 [facility] [address] [place] [address] [phone] iSTAT HCT 33.0 % Low 38.0-51.0 iSTAT Glucose 108 mg/dL High 70-105 iSTAT Sodium 141 mEq/L Normal 136-145 iSTAT Potassium 4.7 mEq/L Normal 3.5-5.1 iSTAT CA++ 4.6 mg/dL Normal 4.5-5.3 iSTAT Chloride 101 mEq/L Normal 98-109 iSTAT Co2 28.0 MM/L High 23.0-27.0 iSTAT BUN 28 mg/dL High 8-26 iSTAT Creatinine 1.4 mg/dL High 0.6-1.3 CBC With Differential 11/30/2020 [facility] [address] [place] [address] [phone] White Blood Count 9.2 10 Normal 4.0-10.0 [...] 36.0-66.0 Lymph % 16.9 % Low 24.0-44.0 [place] % 7.2 % Normal 2.0-8.0 Eos % 2.8 % Normal 0.0-3.0 Baso % 0.5 % Normal 0.0-1.0 Immature Granulocyte % 0.3 % Normal 0-3.0 Nucleated Red Blood Cell % 0.0 % Normal 0-0 Neutrophils # 6.7 10 Normal 1.5-8.5 Lymph # 1.6 10 Normal 1.5-5.0 [place] # 0.7 10 Normal 0.0-0.8 Eos # 0.3 10 Normal 0.0-0.5 Baso # 0.1 10 Normal 0.0-0.2 Liver Profile 11/30/2020 [facility] [address] [place] [address] [phone] Ast/Sgot 34 U/L Normal 7-37 Alt/SGPT 27 U/L Normal 12-78 Alkaline Phosphatase 139 U/L High 45-117 Bilirubin,Total 0.6 mg/dL Normal 0.2-1.0 Bilirubin,Direct 0.2 mg/dL Normal 0.0-0.2 Total Protein 7.8 GM/DL Normal 6.4-8.2 Albumin 2.7 GM/DL Low 3.2-5.2 Albumin/Globulin Ratio 0.5 Normal Laboratory test finding 11/30/2020 [facility] [address] [place] [address] [phone] Lipase 172 U/L Normal 73-393 8 NT-Pro BNP 1331 pg/mL High <450 9 Complete Blood Count 09/27/2020 [facility] Passenger Car Inspector: [place] [address] [phone] WBC 6.5 x10*3/UL 4.1 - 10.9 10 RBC 3.88 x10*6/UL Low 4.20 - 6.30 [...] 2.0 - 7.8 Laboratory test finding 09/27/[address] [id number] [phone] C Reactive Protein Quantitativ 0.46 mg/dL High 0 .00-0.30 11 Comprehensive Chem Profile 09/27/2020 [facility] Passenger Car Inspector: Dr Basilio Sena [place], [place] [id number] [phone] Glucose 127 mg/dL High 74 - 99 12 BUN 35 mg/dL High 7 - 18 13 Creatinine 1.4 mg/dL High 0.6 - 1.3 Sodium 140 mEq/L 136 - 145 Potassium 3.7 mEq/L 3.5 - 5.1 Chloride 102 mEq/L 98 - 107 Carbon Dioxide 35 mEq/L High 21 - 32 Calcium 9.3 mg/dL 8.5 - 10.1 Alk. Phosphatase 125 mg/dL High 46 - 116 14 Total Bilirubin 0.6 mg/dL 0.2 - 1.0 Ast (Sgot) 32 U/L 15 - 37 Alt (SGPT) 21 U/L 12 - 78 Albumin 3.2 g/dL Low 3.4 - 5.0 Total Protein 8.4 g/dL High 6.4 - 8.2 A/G Ratio 0.62 CALC Low 1.00 - 1.90 GFR 48 mL/min Low >60 GFR 58 mL/min Low >60 15 Laboratory test finding 09/27/[address] [id number] [phone] Wound Culture FULL REPORT IN L <SEE NOTE> Normal 16 Complete Blood Count 09/07/2020 [facility] Passenger Car Inspector: [place] [address] [phone] WBC 7.9 x10*3/UL 4.1 - 10.9 RBC 3.53 x10*6/UL Low 4.20 - 6.30 Hemoglobin 10.5 g/dL Low 12.0 - 18.0 17 Hematocrit 30.8 % Low 37.0 - 51.0 [...] 2.0 - 7.8 Basic Metabolic Panel 09/07/2020 [facility] Passenger Car Inspector: [place] [address] [phone] Glucose 109 mg/dL High 74 - 99 18 BUN 14 mg/dL 7 - 18 Creatinine 1.0 mg/dL 0.6 - 1.3 Sodium 141 mEq/L 136 - 145 Potassium 4.2 mEq/L 3.5 - 5.1 Chloride 104 mEq/L 98 - 107 Carbon Dioxide 31 mEq/L 21 - 32 Calcium 8.7 mg/dL 8.5 - 10.1 GFR >= 60 mL/min >60 GFR >= 60 mL/min >60 19 Respiratory Panel 08/29/2020 [facility] [address] [place] [address] [phone] Respiratory Panel This respiratory <SEE NOTE> 20 Cardiac Marker Panel 08/29/2020 [facility] [address] [place] [address] [phone] CPK Creatine Phosphokinase 39 U/L Normal 39-30 8 CK-MB Value Mass < 1.0 NG/ML Normal <3.6 MB/CK Relative Index 2.56 Normal < Or =4 21 Troponin I < 0.02 NG/ML Normal < 0.10 22 Liver Profile 08/29/2020 [facility] [address] [place] [address] [phone] Ast/Sgot 32 U/L Normal 7-37 Alt/SGPT 25 U/L Normal 12-78 Alkaline Phosphatase 154 U/L High 45-117 Bilirubin,Total 1.5 mg/dL High 0.2-1.0 Bilirubin,Direct 0.6 mg/dL High 0.0-0.2 Total Protein 7.3 GM/DL Normal 6.4-8.2 Albumin 3.2 GM/DL Normal 3.2-5.2 Albumin/Globulin Ratio 0.8 Normal Basic Metabolic Profile 08/29/2020 [facility] [address] [place] [address] [phone] Glucose, Fasting 110 mg/dL High 70-100 Blood Urea Nitrogen 35 mg/dL High 7-18 Creatinine For GFR 1.45 mg/dL High 0.70-1.30 Glomerular Filtration Rate 49.0 Normal >35 2 3 Sodium Level 142 mEq/L Normal 136-145 Potassium Serum 4.1 mEq/L Normal 3.5-5.1 Chloride Level 107 mEq/L Normal 98-107 Carbon Dioxide Level 29 mEq/L Normal 21-32 Anion Gap 6 mEq/L Low 8-16 Calcium Level 8.4 mg/dL Low 8.8-10.2 Complete Blood Count 08/21/2020 [facility] Passenger Car Inspector: [place] [address] [phone] WBC 5.5 x10*3/UL 4.1 - 10.9 24 RBC 3.93 x10*6/UL Low 4.20 - 6.30 [...] 2.0 - 7.8 Laboratory test finding 08/21/2020 [facility] Passenger Car Inspector: Dr Basilio Sena [place], [place] [id number] [phone] B-Type Natriuretic Peptide 706.0 pg/mL High 0.0 - 100.0 Basic Metabolic Panel 08/21/2020 [facility] Passenger Car Inspector: Dr Basilio Sena [place], [place] [address] [phone] Glucose 109 mg/dL High 74 - 99 25 BUN 27 mg/dL High 7 - 18 Creatinine 1.3 mg/dL 0.6 - 1.3 Sodium 143 mEq/L 136 - 145 Potassium 4.7 mEq/L 3.5 - 5.1 Chloride 106 mEq/L 98 - 107 Carbon Dioxide 30 mEq/L 21 - 32 Calcium 9.0 mg/dL 8.5 - 10.1 GFR 52 mL/min Low >60 GFR >= 60 mL/min >60 26 1 NOTE: CBC VERIFIED 2 100-125 mg/dL PRE-DIABET ES/FASTING >126 mg/dL DIABETES/FASTING 3 CHRONIC KIDNEY DISEASE STAGI NG PER NKF STAGE I & II GFR >= 60 NORMAL TO MILDLY DECREASED STAGE III GFR 30-59 MODERATELY DECREASED STAGE IV GFR 15-29 SEVERELY DECREASED STAGE V GFR <15 VERY LITTLE GFR LEFT ESRD GFR <15 ON ENVIRONMENTAL FIELD SERVICES TECHNICIAN 4 Negative results do not prec lude influenza or RSV virus infection and should not be used as the sole basis for treatment or other patient management decisions. 5 Negative results do not prec lude influenza or RSV virus infection and should not be used as the sole basis for treatment or other patient management decisions. 6 Negative results do not prec lude influenza or RSV virus infection and should not be used as the sole basis for treatment or other patient management decisions. 7 A false negative result may occur if [...] pathogens. DISCLAIMER: Testing was performed using the [facility] SARS-CoV-2 test. This test was developed and its performance characteristics determined by [facility]. This test has not been FDA cleared [...] the authorization is terminated or revoked sooner. 8 note:<nlbl:demographic_chang ed> note:<nlbl:demographic_changed> note:<nlbl:demographic_changed> 9 note:<nlbl:demographic_chang ed> note:<nlbl:demographic_changed> note:<nlbl:demographic_changed> 10 NOTE: CBC VERIFIED 11 note:<nlbl:demographic_chang ed> 12 100-125 mg/dL PRE-DIABET ES/FASTING >126 mg/dL DIABETES/FASTING 13 NOTE: BUN,CREAT,ALB,T.PROTEIN VERIFIED 14 NOTE: RESULT VERIFIED. 15 CHRONIC KIDNEY DISEASE STAGI NG PER NKF STAGE I & II GFR >= 60 NORMAL TO MILDLY DECREASED STAGE III GFR 30-59 MODERATELY DECREASED STAGE IV GFR 15-29 SEVERELY DECREASED STAGE V GFR <15 VERY LITTLE GFR LEFT ESRD GFR <15 ON ENVIRONMENTAL FIELD SERVICES TECHNICIAN 16 FULL REPORT IN LAB NOTES (eC W [...] NEGATIVE ICR test is considered CLIDAMYCIN SENSITIVE. 17 NOTE: RESULT VERIFIED. 18 100-125 mg/dL PRE-DIABET ES/FASTING >126 mg/dL DIABETES/FASTING 19 CHRONIC KIDNEY DISEASE STAGI NG PER NKF STAGE I & II GFR >= 60 NORMAL TO MILDLY DECREASED STAGE III GFR 30-59 MODERATELY DECREASED STAGE IV GFR 15-29 SEVERELY DECREASED STAGE V GFR <15 VERY LITTLE GFR LEFT ESRD GFR <15 ON ENVIRONMENTAL FIELD SERVICES TECHNICIAN 20 This respiratory PCR panel d etects Influenza A H1, H3 and 2009 H1 viruses, Influenza B virus, Resp iratory Syncytial Virus, Human metapneumovirus, Parainfluenza virus 1, 2, 3 and 4, Adenovirus, Rhinovirus/Enterovirus, Coronavirus HKU1, NL63, OC43, 229E and SARS-CoV-2 (COVID 19), Bordetella pertussis, Bordetella parapertussis, Mycoplasma pneumoniae and Chlamydia pneumoniae. NEGATIVE by MULTIPLEXED NUCLEIC ACID PCR SARS-CoV-2 (COVID 19) NEGATIVE - SARS-CoV-2 (COVID19) 21 DIAGNOSIS CRITERIA MMB ng/ml Relative Index (RI) NON-AMI < or = 5 N/A CANTU ZONE > 5 < or = 4 AMI > 5 > 4 22 Troponin I Reference Interva l for Siemens Dydra LOCI: 99th Percentile= 0.00-0.045 ng/ml Risk Stratification: <= 0.10 ng/ml Decreased Risk for Adverse Clinical Events. 0.10-1.50 ng/ml Increased Risk for Adv erse Clinical Events. Evaluation of additional criterion and/or repeat testing in 2-6 hours is suggested to rule out myocardial damage. >= 1.50 ng/ml Indicative of Myocardial Injury. 23 Units are mL/min/1.73 m2 Chronic Kidney Disease Staging per NKF: Stage I & II GFR >=60 Normal to Mildly Decreased Stage III GFR 30-59 Moderately Decreased Stage IV GFR 15-29 Severely Decreased Stage V GFR <15 Very Little GFR Left ESRD GFR <15 on ENVIRONMENTAL FIELD SERVICES TECHNICIAN 24 NOTE: CBC VERIFIED 25 100-125 mg/dL PRE-DIABET ES/FASTING >126 mg/dL DIABETES/FASTING 26 CHRONIC KIDNEY DISEASE STAGI NG PER NKF STAGE I & II GFR >= 60 NORMAL TO MILDLY DECREASED STAGE III GFR 30-59 MODERATELY DECREASED STAGE IV GFR 15-29 SEVERELY DECREASED STAGE V GFR <15 VERY LITTLE GFR LEFT ESRD GFR <15 ON ENVIRONMENTAL FIELD SERVICES TECHNICIAN Procedures Date Code Description Status 11/09/2020 91618 Trans Care SRV W/I 14D Of DC, Co mm W/I 2 Dys Med Rec Completed 09/07/2020 62509 Aggarwal Cre SRV W/I 7 Days Of DC, C omm W/I 2 Dys Med Rec Completed 09/04/2020 560115913 Diabetic Foot Exam Completed 08/21/2020 57321 Office/Outpatient Established Mo d MDM 30-39 Min Completed 07/09/2020 67475 Trans Care SRV W/I 14D Of DC, Co mm W/I 2 Dys Med Rec Completed Medical Devices Description No Information Available Encounters Type Date Location Provider Dx Diagnosis Office Visit 11/09[facility]2020 [facility] I47.2 Ventricular tachycardia I48.0 Paroxysmal atrial fibrillati on Z79.01 retirement (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 a nticoagulants I73.9 Peripheral vascular disease, unspecified I44.2 Atrioventricular block, comp lete 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, 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 E03.9 Hypothyroidism, unspecified Office Visit 09/07/2020 [facility] J18.9 Pneumonia, unspecified organism I73.9 Peripheral vascular disease, unspecified I50.41 Acute combined systolic and diastolic (congestive) hrt fail I48.0 Paroxysmal atrial fibrillati on Z79.01 retirement (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 a nticoagulants I44.2 Atrioventricular block, comp lete 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 M21.372 Foot drop, left foot N40.0 Benign prostatic hyperplasia without lower urinry tract symp Office Visit 08/21/2020 2[facility]p [facility] I73.9 Peripheral vascular disease, unspecified M21.372 Foot drop, left foot 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 I50.33 Acute on chronic diastolic ( congestive) heart failure I48.0 Paroxysmal atrial fibrillati on 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 Office Visit 07/09/2020 11:00a [facility]hu DO J18.1 Lobar pneumonia, unspecified organism M21.372 Foot drop, left foot S93.602A Unspecified sprain of left f oot, initial encounter W01.0xxA Fall same lev from slip/trip w/o strike against object, init I48.0 Paroxysmal atrial fibrillati on 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062 Spinal stenosis, lumbar region w ith neurogenic claudication Soraya Carlos,DO 12/07/2020 E03.9 Hypothyroidism, unspecified Antoni a Carlos,DO 11/09/2020 I47.2 Ventricular tachycardia Soraya Drummond ggs,DO 11/09/2020 I48.0 Paroxysmal atrial fibrillation L aura Carlos,DO 11/09/2020 Z79.01 retirement (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 antic oagulants Soraya Carlos,DO 11/09/2020 I73.9 Peripheral vascular disease, uns pecified Soraya Carlos,DO 11/09/2020 I44.2 Atrioventricular block, complete Soraya Carlos,DO 11/09/2020 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r [place] Carlos,DO 11/09/2020 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 Soraya Carlos,DO 11/09/2020 M48.062 Spinal stenosis, lumbar region w ith neurogenic claudication Soraya Rooney,DO 11/09/2020 E03.9 Hypothyroidism, unspecified Antoni a Carlos,DO 09/07/2020 J18.9 Pneumonia, unspecified organism Soraya Carlos,DO 09/07/2020 I73.9 Peripheral vascular disease, uns pecified Soraya Carlos,DO 09/07/2020 I50.41 Acute combined systo lic (congestive) and diastolic (congestive) heart failure Soraya Carlos,DO 09/07/2020 I48.0 Paroxysmal atrial fibrillation L aura Carlos,DO 09/07/2020 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 Soraya Carlos,DO 09/07/2020 I44.2 Atrioventricular block, complete Soraya Carlos,DO 09/07/2020 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r [place] Carlos,DO 09/07/2020 M21.372 Foot drop, left foot Soraya Carlos ,DO 09/07/2020 N40.0 Benign prostatic hyp erplasia without lower urinary tract symptoms Soraya Rooney,DO 08/21/2020 I73.9 Peripheral vascular disease, uns pecified Soraya Rooney,DO 08/21/2020 M21.372 Foot drop, left foot Soraya Rooney ,DO 08/21/2020 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 Soraya Carlos,D O 08/21/2020 I50.33 Acute on chronic diastolic (michel estive) heart failure Soraya Rooney,DO 08/21/2020 I48.0 Paroxysmal atrial fibrillation L yuliet Rooney,DO 08/21/2020 I25.10 Atherosclerotic hear t disease of [place] coronary artery without angina pectoris Soraya Carlos,DO 08/21/2020 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r Melida Rooney,DO 07/09/2020 J18.1 Lobar pneumonia, unspecified org anism Sorayafior Rooney,DO 07/09/2020 M21.372 Foot drop, left foot Soraya Rooney ,DO 07/09/2020 S93.602A Unspecified sprain of left foot, initial encounter Soraya Rooney,DO 07/09/2020 W01.0xxA Fall on same level f rom slipping, tripping and stumbling without subsequent striking against object, initial encounter Soraya Rooney,DO 07/09/2020 I48.0 Paroxysmal atrial fibrillation L yuliet Rooney,DO 07/09/2020 I25.10 Atherosclerotic hear t disease of [place] coronary artery without angina pectoris Soraya Rooney,DO 07/09/2020 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r Melida Rooney,DO 07/09/2020 R53.1 Weakness Soraya Rooney DO Plan of Treatment Future Appointment(s):* 01/14/2021 3:00 pm - Soraya Rooney DO at [facility] 09/27/2020 - Soraya Rooney DO* All * New Medication:* Augmentin 500-125 mg - 1 by mouth twice a day with food for 10days Functional Status Description No Information Available Mental Status Description No Information Available Referrals Refer to Reason for Referral Status Appt Date Roger Case MD CONSULT FOR PVD Patient Notified 10/10/2020 [facility] [address] ,[address] [facility] [address] [phone] David Arevalo DPM CONSULT FOR BUNIONS AND NAIL CARE Created [address] [place], [place] [id number] [phone]
--- OUTSIDE RECORDS SUMMARY | 2021-02-27 09:29 | CCD | Continuity of Care Document ---
Author Author [facility] Organization Unknown Address [address] [place] [address], [place] [address] Phone Unavailable Care Team Providers Care Telephone Sales Representative Name Role Phone CarlosSoraya infante Neville VASQUEZ AUTM [phone] Matt Bolaños MD [facility] AUTM Problems Active Problems Provider Date [...] quit 2001 Exercise Type/Frequency Does not exercise amanda medrano Exercise Type/Frequency Stretch Bands Exercises and at [...] Adam Llanos MD 11/02/2020 Fluticasone Propionate Nasal [place] 24- H our 50mcg/Act Suspension 1 spray in each nostril daily Unknown 11/01/2020 Loratadine 10mg Capsules 1 by mouth every day Unknown 11/01/2020 Atorvastatin Calcium 20mg Tablets 1 by mouth every day Soraya Gonzalez DO 09/11/2020 Ferrous Gluconate 324(38Fe) mg Tab [...] 1 by jonathan th daily Unknown 02/20/2020 [place] 3 1000mg Capsules 1 by mouth tid [...] Date Facility Test Result H/L Range Note [facility] 11/02/2020 [facility] nter [phone] Glucose, Fasting 114 mg/dL High 70-100 Blood [...] Ratio 0.7 Normal Laboratory test finding 11/02/2020 [facility] [phone] Magnesium Level 2.2 mg/dL Normal 1.8-2.4 3 CBC without Differential 09/02/2020 [facility] - not inter faced (315)- - White Blood Count 9.2 5.0-10.0 Red Blood Count 3.25 Low 4.00-5.40 Platelets 159 Low 172-450 Hemoglobin 9.7 Hematocrit 30.5 [facility] 09/02/2020 [facility] - not interfaced (315)- - Albumin [...] Little GFR Left ESRD GFR <15 on STEAM ROOM ATTENDANT 2 Testing was performed on an icteric specimen. Testing was performed on a SLIGHTLY hemolyzed specimen. Suggest recollection of specimen for more accurate test results. 3 note:<nlbl:demographic_chang ed> Procedures Date Code Description Status 12/05/2020 15761 Remote Interrogate D evice Eval Cardioverter/Defibrillator-90 Days Completed 12/05/2020 92074 Remote Interrogation Device Eval Pacemaker System Up To 90 Days Completed 11/02/2020 01266 Office/Outpatient Established Mo d MDM 30-39 Min Completed 10/25/2020 44830 Chronic Care MGMT 20 Mins Clinical Staff Time Per Calendar Month Completed 09/17/2020 51500 Chronic Care MGMT 20 Mins Clinical Staff Time Per Calendar Month Completed 09/12/2020 51020 Office/Outpatient Established Mo d MDM 30-39 Min Completed 09/12/2020 40140 ECG 12-Lead Completed 09/05/2020 31293 Pacer Programming Dual Leads Com pleted 08/17/2020 20267 Chronic Care MGMT 20 Mins Clinical Staff Time Per Calendar Month Completed 07/26/2020 55529 Office/Outpatient Established Mi nimal Problem(S) Completed 07/16/2020 42237 Chronic Care MGMT 20 Mins Clinical Staff Time Per Calendar Month Completed 07/12/2020 38457 Office/Outpatient Established Mi nimal Problem(S) Completed 06/13/2020 74534 Chronic Care MGMT 20 Mins Clinical Staff Time Per Calendar Month Completed 06/13/2020 31688 Chronic Care Management Services Ea Addl 20 Min Completed Medical Devices Description No Information Available Encounters Type Date Location Provider Dx Diagnosis Office Visit 11/02/2020 8:00a Main Office NEGAR Nichole I47 .2 Ventricular tachycardia Office Visit 09/17/2020 1:44p Main Office Adam [...] Provider 12/05/2020 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r [facility] 11/02/2020 I47.2 Ventricular tachycardia NEGAR Gant 10/25/2020 [...] 09/12/2020 I25.10 Atherosclerotic hear t disease of [place] coronary artery without angina pectoris NEGAR Nichole 09/12/2020 I44.2 Atrioventricular block, complete Graciela Fuentes, NEGAR 09/12/2020 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r NEGAR [...]
--- OUTSIDE RECORDS SUMMARY | 2021-02-27 09:29 | CCD | Continuity of Care Document ---
Author Organization Unknown Address Unknown Phone Unavailable Care Team Providers Care Learning Technologist Name Role Phone Soraya Gonzalez AUTM [phone] Matt Bolaños MD [facility] AUTM Problems Active Problems Provider Date [...] Adam Llanos MD 11/02/2020 Fluticasone Propionate Nasal [place] 24- H our 50mcg/Act Suspension 1 spray in each nostril daily Unknown 11/01/2020 Loratadine 10mg Capsules 1 by mouth every day Unknown 11/01/2020 Atorvastatin Calcium 20mg Tablets 1 by mouth every day Soraya Gonzalez, DO 09/11/2020 Ferrous Gluconate 324(38Fe) mg Tab lets 1 by mouth once a day Soraya Gonzalez, DO Torsemide 10mg Tablets 1 by mouth every [...] 1 by jonathan th daily Unknown 02/20/2020 Perry 3 1000mg Capsules 1 by mouth tid [...] NT Probnp QN Ser/Plas 568.0 CMP 11/02/2020 [facility] nter [phone] Glucose, Fasting 114 mg/dL High 70-100 Blood [...] Ratio 0.7 Normal Laboratory test finding 11/02/2020 [facility] [phone] Magnesium Level 2.2 mg/dL Normal 1.8-2.4 3 CBC without Differential 09/02/2020 [facility] - not inter faced (315)- - White Blood Count 9.2 5.0-10.0 Red Blood Count 3.25 Low 4.00-5.40 Platelets 159 Low 172-450 Hemoglobin 9.7 Hematocrit 30.5 CMP 09/02/2020 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 Testing was performed on a SLIGHTLY hemolyzed specimen. Suggest recollection of specimen for more accurate test results. 3 note:<nlbl:demographic_[facility] ed> Procedures Date Code Description Status 12/05/2020 57940 Remote Interrogate D evice Eval Cardioverter/Defibrillator-90 Days Completed 12/05/2020 76215 Remote Interrogation Device Eval Pacemaker System Up To 90 Days Completed 11/02/2020 02808 Office/Outpatient Established Mo d MDM 30-39 Min Completed 10/25/2020 92101 Chronic Care MGMT 20 Mins Clinical Staff Time Per Calendar Month Completed 09/17/2020 57112 Chronic Care MGMT 20 Mins Clinical Staff Time Per Calendar Month Completed 09/12/2020 72225 Office/Outpatient Established Mo d MDM 30-39 Min Completed 09/12/2020 91649 ECG 12-Lead Completed 09/05/2020 55837 Pacer Programming Dual Leads Com pleted 08/17/2020 27856 Chronic Care MGMT 20 Mins Clinical Staff Time Per Calendar Month Completed 07/26/2020 92465 Office/Outpatient Established Mi nimal Problem(S) Completed 07/16/2020 57542 Chronic Care MGMT 20 Mins Clinical Staff Time Per Calendar Month Completed 07/12/2020 63871 Office/Outpatient Established Mi nimal Problem(S) Completed Medical [...] Presence of cardiac pacemaker [facility] 11/02/2020 I47.2 Ventricular tachycardia NEGAR [...] 09/12/2020 I25.10 Atherosclerotic hear t disease of [place] coronary artery without angina pectoris NEGAR Nichole [...] Main Office * 07/29/2021 9:15 am - NEGAR Camacho[facility]Porter at Main Office 11/02/2020 - NEGAR Nichole* [...]
--- OUTSIDE RECORDS SUMMARY | 2021-02-27 09:29 | CCD | Continuity of Care Document ---
Author Author Trevor ROONEY Organization Unknown Address [address] [facility] [address] [place] [address] Phone [phone] Care Team Providers Care Membership Counselor Name Role Phone Soraya Rooney DO AUTM Unavailable Adam Llanos M.D. - Scooping Machine Tender AUTM [facility] AUTM [phone] Problems Description No Information Available Social History [...] DR 1 by mouth every day Soraya Rooney,DO 02/17/2020 Fish Oil 1200mg Capsules 2 by mouth every day Soraya Rooney DO 02/17/2020 Pantoprazole Sodium 40mg Tablets D R 1 by mouth every day 90tabs Soraya Carlos,DO 02/17/2020 Tamsulosin HCL 0.4mg Capsules 1 daily 1/2 hour after same meal 90caps Soraya Carlos,DO 02/17/2020 Pregabalin 75mg Capsules 1 in pm [facility] Blake Lewis M.D. 02/17/2020 Finasteride 5mg Tablets [...] H/L Range Note Laboratory test finding 12/07/2020 [facility] [address] [place] [address] [phone] Ferritin 219 NG/ML Normal 26-388 1 Complete Blood Count 12/07/2020 [place] [employer] [facility] Siene Maker: [place] [address] [phone] WBC 6.7 x10*3/UL 4.1 - 10.9 2 [...] 2.0 - 7.8 Laboratory test finding 12/07/2020 [place] [facility] Siene Maker: [place] [address] [phone] B-Type Natriuretic Peptide 568.0 pg/mL High 0.0 - 100.0 Magnesium 1.7 mg/dL Low 1.8 - 2.4 Comprehensive Chem Profile 12/07/2020 [place] [facility] Siene Maker: Dr Basilio Sena [place] [id number] [phone] Glucose 118 mg/dL High 74 - 99 [...] Low >60 4 Laboratory test finding 12/07/2020 [place] [facility] Siene Maker: Dr Basilio Sena [place] [id number] [phone] Thyroid Stimulating Hormone 5.46 uIU/mL High 0.3 6 - 3.74 Total Iron Binding Capacit 12/07/[address] [address] [phone] Iron (Fe) 63 g/dL Low 65-175 Total Iron Binding Capacity 220 g/dL Low 250-450 Percent Saturation 28.6 % Normal 19.7-50.0 Ua W/ Reflex To Culture 11/30/[facility] [address] [address] [phone] Appearance, Urine RFX CLEAR Normal Clear Color, Urine RFX YELLOW Normal Yellow PH,Urine RFX 8.0 units Normal 5.0-9.0 Specific [place] Ur Auto RFX 1.021 Normal 1.002-1.035 Protein, [...] 0-1 Influenza A/B RSV Covid Amp 11/30/2020 [facility] [address] [place] [address] [phone] Influenza A Amplification NEGATIVE Normal Negati ve 5 Influenza B Amplification NEGATIVE Normal Negative 6 RSV Amplification NEGATIVE Normal Negative 7 Sars Covid-19 Amplification NEGATIVE Normal Negative 8 Istat Chem8+ Panel 11/30/2020 [facility] nter [address] [place] [address] [phone] iSTAT HCT 33.0 % Low 38.0-51.0 iSTAT Glucose 108 mg/dL High 70-105 iSTAT Sodium 141 mEq/L Normal 136-145 iSTAT Potassium 4.7 mEq/L Normal 3.5-5.1 iSTAT CA++ 4.6 mg/dL Normal 4.5-5.3 iSTAT Chloride 101 mEq/L Normal 98-109 iSTAT Co2 28.0 MM/L High 23.0-27.0 iSTAT BUN 28 mg/dL High 8-26 iSTAT Creatinine 1.4 mg/dL High 0.6-1.3 CBC With Differential 11/30/2020 [facility] [address] [place] [address] [phone] White Blood Count 9.2 10 Normal 4.0-10.0 [...] 36.0-66.0 Lymph % 16.9 % Low 24.0-44.0 [place] % 7.2 % Normal 2.0-8.0 Eos % 2.8 % Normal 0.0-3.0 Baso % 0.5 % Normal 0.0-1.0 Immature Granulocyte % 0.3 % Normal 0-3.0 Nucleated Red Blood Cell % 0.0 % Normal 0-0 Neutrophils # 6.7 10 Normal 1.5-8.5 Lymph # 1.6 10 Normal 1.5-5.0 [place] # 0.7 10 Normal 0.0-0.8 Eos # 0.3 10 Normal 0.0-0.5 Baso # 0.1 10 Normal 0.0-0.2 Liver Profile 11/30/2020 [facility] nter [address] [place] [address] [phone] Ast/Sgot 34 U/L Normal 7-37 Alt/SGPT 27 U/L Normal 12-78 Alkaline Phosphatase 139 U/L High 45-117 Bilirubin,Total 0.6 mg/dL Normal 0.2-1.0 Bilirubin,Direct 0.2 mg/dL Normal 0.0-0.2 Total Protein 7.8 GM/DL Normal 6.4-8.2 Albumin 2.7 GM/DL Low 3.2-5.2 Albumin/Globulin Ratio 0.5 Normal Laboratory test finding 11/30/2020 [facility] [address] [place] [address] [phone] Lipase 172 U/L Normal 73-393 9 NT-Pro BNP 1331 pg/mL High <450 10 Complete Blood Count 09/27/2020 [place] [employer] Siene Maker: Dr [place], [place] [id number] [phone] WBC 6.5 x10*3/UL 4.1 - 10.9 11 RBC 3.88 x10*6/UL Low 4.20 - 6.30 [...] 2.0 - 7.8 Laboratory test finding 09/27/2020 [facility] [address] [place], [place] [id number] [phone] C Reactive Protein Quantitativ 0.46 mg/dL High 0 .00-0.30 12 Comprehensive Chem Profile 09/27/2020 [place] [facility] Siene Maker: Dr [address] [place], [place] [id number] [phone] Glucose 127 mg/dL High 74 - 99 [...] Low >60 16 Laboratory test finding 09/27/2020 [facility] [address] [place], [place] [address] [phone] Wound Culture FULL REPORT IN L <SEE NOTE> Normal 17 Complete Blood Count 09/07/2020 [place] [employer] Siene Maker: [place] [address] [phone] WBC 7.9 x10*3/UL 4.1 - 10.9 RBC [...] 2.0 - 7.8 Basic Metabolic Panel 09/07/2020 [facility] Siene Maker: [place] [address] [phone] Glucose 109 mg/dL High 74 - 99 [...] 60 mL/min >60 20 Respiratory Panel 08/29/2020 [facility] nter [address] [place] [address] [phone] Respiratory Panel This respiratory <SEE NOTE> 21 Cardiac Marker Panel 08/29/2020 [facility] enter [address] [place] [address] [phone] CPK Creatine Phosphokinase 39 U/L Normal 39-30 8 CK-MB Value Mass < 1.0 NG/ML Normal <3.6 MB/CK Relative Index 2.56 Normal < Or =4 22 Troponin I < 0.02 NG/ML Normal < 0.10 23 Liver Profile 08/29/2020 [facility] [address] [place] [address] [phone] Ast/Sgot 32 U/L Normal 7-37 Alt/SGPT 25 U/L Normal 12-78 Alkaline Phosphatase 154 U/L High 45-117 Bilirubin,Total 1.5 mg/dL High 0.2-1.0 Bilirubin,Direct 0.6 mg/dL High 0.0-0.2 Total Protein 7.3 GM/DL Normal 6.4-8.2 Albumin 3.2 GM/DL Normal 3.2-5.2 Albumin/Globulin Ratio 0.8 Normal Basic Metabolic Profile 08/29/2020 [facility] [address] [place] [address] [phone] Glucose, Fasting 110 mg/dL High 70-100 Blood Urea Nitrogen 35 mg/dL High 7-18 Creatinine For GFR 1.45 mg/dL High 0.70-1.30 Glomerular Filtration Rate 49.0 Normal >35 2 4 Sodium Level 142 mEq/L Normal 136-145 Potassium Serum 4.1 mEq/L Normal 3.5-5.1 Chloride Level 107 mEq/L Normal 98-107 Carbon Dioxide Level 29 mEq/L Normal 21-32 Anion Gap 6 mEq/L Low 8-16 Calcium Level 8.4 mg/dL Low 8.8-10.2 Complete Blood Count 08/21/2020 [place] [facility] [employer] [facility] Siene Maker: [place] [address] [phone] WBC 5.5 x10*3/UL 4.1 - 10.9 25 [...] 2.0 - 7.8 Laboratory test finding 08/21/2020 [place] [facility] Siene Maker: [place] [address] [phone] B-Type Natriuretic Peptide 706.0 pg/mL High 0.0 - 100.0 Basic Metabolic Panel 08/21/2020 [facility] Siene Maker: [place] [address] [phone] Glucose 109 mg/dL High 74 - 99 [...] LITTLE GFR LEFT ESRD GFR <15 ON TIRE LAYER 5 Negative results do not prec lude influenza or RSV virus infection and should not be used as the sole basis for treatment or other patient management decisions. 6 Negative results do not prec lude influenza or RSV virus infection and should not be used as the sole basis for treatment or other patient management decisions. 7 Negative results do not prec lude influenza or RSV virus infection and should not be used as the sole basis for treatment or other patient management decisions. 8 A false negative result may occur if [...] pathogens. DISCLAIMER: Testing was performed using the [employer] SARS-CoV-2 test. This test was developed and its performance characteristics determined by [employer]. This test has not been FDA cleared [...] the authorization is terminated or revoked sooner. 9 note:<nlbl:demographic_chang ed> note:<nlbl:demographic_changed> note:<nlbl:demographic_changed> 10 note:<nlbl:demographic_chang ed> note:<nlbl:demographic_changed> note:<nlbl:demographic_changed> 11 NOTE: CBC VERIFIED 12 note:<nlbl:demographic_chang ed> 13 100-125 mg/dL PRE-DIABET ES/FASTING >126 mg/dL DIABETES/FASTING 14 NOTE: BUN,CREAT,ALB,T.PROTEIN VERIFIED 15 NOTE: RESULT VERIFIED. 16 CHRONIC KIDNEY DISEASE STAGI NG PER NKF STAGE I & II GFR >= 60 NORMAL TO MILDLY DECREASED STAGE III GFR 30-59 MODERATELY DECREASED STAGE IV GFR 15-29 SEVERELY DECREASED STAGE V GFR <15 VERY LITTLE GFR LEFT ESRD GFR <15 ON TIRE LAYER 17 FULL REPORT IN LAB NOTES (eC W [...] NEGATIVE ICR test is considered CLIDAMYCIN SENSITIVE. 18 NOTE: RESULT VERIFIED. 19 100-125 mg/dL PRE-DIABET ES/FASTING >126 mg/dL DIABETES/FASTING 20 CHRONIC KIDNEY DISEASE STAGI NG PER NKF STAGE I & II GFR >= 60 NORMAL TO MILDLY DECREASED STAGE III GFR 30-59 MODERATELY DECREASED STAGE IV GFR 15-29 SEVERELY DECREASED STAGE V GFR <15 VERY LITTLE GFR LEFT ESRD GFR <15 ON TIRE LAYER 21 This respiratory PCR panel d etects [...] (COVID 19) NEGATIVE - SARS-CoV-2 (COVID19) 22 DIAGNOSIS CRITERIA MMB ng/ml Relative Index (RI) NON-AMI < or = 5 N/A CANTU ZONE > 5 < or = 4 AMI > 5 > 4 23 Troponin I Reference Interva l for [employer] LOCI: 99th Percentile= 0.00-0.045 ng/ml Risk Stratification: <= 0.10 ng/ml Decreased Risk for Adverse Clinical Events. 0.10-1.50 ng/ml Increased Risk for Adv erse Clinical Events. Evaluation of additional criterion and/or repeat testing in 2-6 hours is suggested to rule out myocardial damage. >= 1.50 ng/ml Indicative of Myocardial Injury. 24 Units are mL/min/1.73 m2 Chronic Kidney Disease Staging per NKF: Stage I & II GFR >=60 Normal to Mildly Decreased Stage III GFR 30-59 Moderately Decreased Stage IV GFR 15-29 Severely Decreased Stage V GFR <15 Very Little GFR Left ESRD GFR <15 on TIRE LAYER 25 NOTE: CBC VERIFIED 26 100-125 mg/dL PRE-DIABET ES/FASTING >126 mg/dL DIABETES/FASTING 27 CHRONIC KIDNEY DISEASE STAGI NG PER NKF STAGE I & II GFR >= 60 NORMAL TO MILDLY DECREASED STAGE III GFR 30-59 MODERATELY DECREASED STAGE IV GFR 15-29 SEVERELY DECREASED STAGE V GFR <15 VERY LITTLE GFR LEFT ESRD GFR <15 ON TIRE LAYER Procedures Date Code Description Status 11/09/2020 21599 Trans Care SRV W/I 14D Of DC, Co mm W/I 2 Dys Med Rec Completed 09/07/2020 98332 Aggarwal Cre SRV W/I 7 Days Of DC, C omm W/I 2 Dys Med Rec Completed 09/04/2020 633025808 Diabetic Foot Exam Completed 08/21/2020 69545 Office/Outpatient Established Mo d MDM 30-39 Min Completed 07/09/2020 61582 Trans Care SRV W/I 14D Of DC, Co mm W/I 2 Dys Med Rec Completed Medical Devices Description No Information Available Encounters Type Date Location Provider Dx Diagnosis Office Visit [facility] I47[facility] Ventricular tachycardia I48.0 Paroxysmal atrial fibrillati on 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 I73.9 Peripheral vascular disease, unspecified I44.2 Atrioventricular block, comp lete 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, 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 E03.9 Hypothyroidism, unspecified Office Visit 09/07/2020 11:[facility]a [facility] J18.9 Pneumonia, unspecified organism I73.9 Peripheral vascular disease, unspecified I50.41 Acute combined systolic and diastolic (congestive) hrt fail I48.0 Paroxysmal atrial fibrillati on Z79.01 MCC (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 a nticoagulants I44.2 Atrioventricular block, comp lete 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 M21.372 Foot drop, left foot N40.0 Benign prostatic hyperplasia without lower urinry tract symp Office Visit 08/21/2020 2:00p [place] [facility] DO I73.9 Peripheral vascular disease, unspecified M21.372 Foot drop, left foot 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 I50.33 Acute on chronic diastolic ( congestive) heart failure I48.0 Paroxysmal atrial fibrillati on 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 Office Visit 07/09/2020 11:[facility]a [place] [facility] J18.1 Lobar pneumonia, unspecified organism M21.372 [...] Code Description Provider 12/07/2020 J18.9 Pneumonia Soraya Mendiolags,DO 12/07/2020 I47.2 Ventricular tachycardia Soraya Bhanu ggs,DO 12/07/2020 D50.9 Iron deficiency anemia Soraya Mendiola gs,DO 12/07/2020 Z79.01 MCC (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 antic oagulants Soraya Carlos,DO 12/07/2020 I44.2 Atrioventricular block, complete Soraya Carlos,DO 12/07/2020 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r La ura Carlos,DO 12/07/2020 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 Soraya Carlos,DO 12/07/2020 K59.00 Constipation Soraya Carlos,DO 12/07/2020 M48.062 Spinal stenosis, lumbar region w ith neurogenic claudication Soraya Carlos,DO 12/07/2020 E03.9 Hypothyroidism, unspecified Antoni a Carlos,DO 11/09/2020 I47.2 Ventricular tachycardia Soraya Bhanu ggs,DO 11/09/2020 I48.0 Paroxysmal atrial fibrillation L aura Carlos,DO 11/09/2020 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 Soraya Carlos,DO 11/09/2020 I73.9 Peripheral vascular disease, uns pecified Soraya Carlos,DO 11/09/2020 I44.2 Atrioventricular block, complete Soraya Mendiolags,DO 11/09/2020 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r La [...] atrial fibrillation L aura Carlos,DO 09/07/2020 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 Soraya Rooney,DO [...] Soraya Rooney,DO 08/21/2020 I48.0 Paroxysmal atrial fibrillation Ulysses Rooney,DO 08/21/2020 I25.10 Atherosclerotic hear t disease of [place] coronary artery without angina pectoris Soraya Rooney,DO [...] Soraya Rooney,DO 07/09/2020 I48.0 Paroxysmal atrial fibrillation Ulysses Rooney,DO 07/09/2020 I25.10 Atherosclerotic hear t disease of [place] coronary artery without angina pectoris Soraya Rooney,DO 07/09/2020 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r Melida kaur oRoney,DO 07/09/2020 R53.1 Weakness Soraya MendiolagsDO Plan of Treatment Future Appointment(s):* 01/14/2021 3:00 pm - Soraya Rooney DO at [facility] 09/27/2020 - Soraya Rooney DO* All * New Medication:* Augmentin 500-125 mg - 1 by mouth twice a day with food for 10days Functional Status Description No Information Available Mental Status Description No Information Available Referrals Refer to Dr Reason for Referral Status Appt Date Roger Case MD CONSULT FOR PVD Patient Notified 10/10/2020 [facility] [address] ,[address] [facility] [address] [phone] David Arevalo DPM CONSULT FOR BUNIONS AND NAIL CARE Created [address] [place] [address] [phone]
--- OUTSIDE RECORDS SUMMARY | 2021-02-27 09:31 | CCD ---
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 Name Role Phone Nevilel SILVA MD Unavailable Unavailable Neville SILVA MD Unavailable Unavailable Neville SILVA MD Unavailable Unavailable Neville SILVA MD Unavailable Unavailable Neville SILVA MD Unavailable Unavailable Neville SILVA MD Unavailable Unavailable Neville SILVA MD Unavailable Unavailable Neville SILVA MD Unavailable Unavailable Neville SILVA MD Unavailable Unavailable Neville SILVA MD Unavailable Unavailable Neville SILVA MD Unavailable Unavailable Neville SILVA MD Unavailable Unavailable Neville SILVA MD Unavailable Unavailable Neville SILVA MD Unavailable Unavailable Neville SILVA MD Unavailable Unavailable Neville SILVA MD Unavailable Unavailable Neville SILVA MD Unavailable Unavailable Neville SILVA MD Unavailable Unavailable Neville SILVA MD Unavailable Unavailable Neville SILVA MD Unavailable Unavailable Neville SILVA MD Unavailable Unavailable Neville SILVA MD Unavailable Unavailable Neville SILVA MD Unavailable Unavailable Neville SILVA MD Unavailable Unavailable Neville SILVA MD Unavailable Unavailable Neville SILVA MD Unavailable Unavailable Neville SILVA MD Unavailable Unavailable Neville SILVA MD Unavailable Unavailable Neville SILVA MD Unavailable Unavailable Neville SILVA MD Unavailable Unavailable Neville SILVA MD Unavailable Unavailable Neville SILVA MD Unavailable Unavailable Neville SILVA MD Unavailable Unavailable Neville SILVA MD Unavailable Unavailable Neville SILVA MD Unavailable Unavailable SILVA, E LARA MCCANN Unavailable Unavailable SILVA, E LARA MCCANN Unavailable Unavailable SILVA, E LARA MCCANN Unavailable Unavailable SILVA, E LARA MCCANN Unavailable Unavailable SILVA, E LARA MCCANN Unavailable Unavailable SILVA, E LARA MCCANN Unavailable Unavailable SILVA, E LARA MCCANN Unavailable Unavailable SILVA, E LARA MCCANN Unavailable Unavailable SILVA, E LARA MCCANN Unavailable Unavailable SILVA, E LARA MCCANN Unavailable Unavailable SILVA, E LARA MCCANN Unavailable Unavailable SILVA, E LARA MCCANN Unavailable Unavailable SILVA, E LARA MCCANN Unavailable Unavailable SILVA, E LARA MCCANN Unavailable Unavailable SILVA, E LARA MCCANN Unavailable Unavailable SILVA, E LARA MCCANN Unavailable Unavailable SILVA, E LARA MCCANN Unavailable Unavailable SILVA, E LARA MCCANN Unavailable Unavailable SILVA, E LARA MCCANN Unavailable Unavailable LETTIERE, A GROVER PA Unavailable Unavailable LETTIERE, A GROVER PA Unavailable Unavailable LETTIERE, A GROVER PA Unavailable Unavailable LETTIERE, A GROVER PA Unavailable Unavailable LETTIERE, A GROVER PA Unavailable Unavailable LETTIERE, A GROVER PA Unavailable Unavailable LETTIERE, A GROVER PA Unavailable Unavailable LETTIERE, A GROVER PA Unavailable Unavailable LETTIERE, A GROVER PA Unavailable Unavailable LETTIERE, A GROVER PA Unavailable Unavailable LETTIERE, A GROVER PA Unavailable Unavailable LETTIERE, A GROVER PA Unavailable Unavailable LETTIERE, A GROVER PA Unavailable Unavailable LETTIERE, A GROVER PA Unavailable Unavailable LETTIERE, A GROVER PA Unavailable Unavailable LETTIERE, A GROVER PA Unavailable Unavailable LETTIERE, A GROVER PA Unavailable Unavailable LETTIERE, A GROVER PA Unavailable Unavailable LETTIERE, A GROVER PA Unavailable Unavailable LETTIERE, A GROVER PA Unavailable Unavailable LETTIERE, A GROVER PA Unavailable Unavailable LETTIERE, A GROVER PA Unavailable Unavailable LETTIERE, A GROVER PA Unavailable Unavailable LETTIERE, A GROVER PA Unavailable Unavailable LETTIERE, A GROVER PA Unavailable Unavailable LETTIERE, A GROVER PA Unavailable Unavailable LETTIERE, A GROVER PA Unavailable Unavailable LETTIERE, A GROVER PA Unavailable Unavailable LETTIERE, A GROVER PA Unavailable Unavailable LETTIERE, A GROVER PA Unavailable Unavailable LETTIERE, A GROVER PA Unavailable Unavailable Symenow, Janessa Singh PA Unavailable Unavailable Symenow, Janessa Singh PA Unavailable Unavailable Symenow, Janessa Singh PA Unavailable Unavailable Symenow, Janessa Singh PA Unavailable Unavailable Symenow, Janessa Singh PA Unavailable Unavailable Symenow, Janessa Samantha PA Unavailable Unavailable Symenow, Janessa Samantha PA Unavailable Unavailable Symenow, Janessa Samantha PA Unavailable Unavailable Symenow, Janessa Samantha PA Unavailable Unavailable Symenow, Janessa Samantha PA Unavailable Unavailable Symenow, Janessa Samantha PA Unavailable Unavailable Symenow, Janessa Samantha PA Unavailable Unavailable Symenow, Janessa Samantha PA Unavailable Unavailable Symenow, Janessa Samantha PA Unavailable Unavailable Symenow, Janessa Samantha PA Unavailable Unavailable Symenow, Janessa Samantha PA Unavailable Unavailable Symenow, Janessa Samantha PA Unavailable Unavailable Symenow, Janessa Samantha PA Unavailable Unavailable Symenow, Janessa Samantha PA Unavailable Unavailable Symenow, Janessa Samantha PA Unavailable Unavailable Symenow, Janessa Samantha PA Unavailable Unavailable Symenow, Janessa Samantha PA Unavailable Unavailable Symenow, Janessa Samantha PA Unavailable Unavailable Symenow, Janessa Samantha PA Unavailable Unavailable Symenow, Janessa Samantha PA Unavailable Unavailable Symenow, Janessa Samantha PA Unavailable Unavailable Symenow, Janessa Samantha PA Unavailable Unavailable Symenow, Janessa Samantha PA Unavailable Unavailable Symenow, Janessa Samantha PA Unavailable Unavailable Symenow, Janessa Samantha PA Unavailable Unavailable Symenow, Janessa Samantha PA Unavailable Unavailable Symenow, Janessa Samantha PA Unavailable Unavailable Symenow, Janessa Samantha PA Unavailable Unavailable Symenow, Janessa Samantha PA Unavailable Unavailable Carlos, Soraya DO Unavailable Unavailable Carlos, Soraya DO Unavailable Unavailable Carlos, Soraya DO Unavailable Unavailable Carlos, Soraya DO Unavailable Unavailable Carlos, Soraya DO Unavailable Unavailable Carlos, Soraya DO Unavailable Unavailable Carlos, Soraya DO Unavailable Unavailable Carlos, Soraya DO Unavailable Unavailable Carlos, Soraya DO Unavailable Unavailable Carlos, Soraya DO Unavailable Unavailable Carlos, Soraya DO Unavailable Unavailable Carlos, Soraya DO Unavailable Unavailable Carlos, Soraya DO Unavailable Unavailable Carlos, Soraya DO Unavailable Unavailable Carlos, Soraya DO Unavailable Unavailable Carlos, Soraya DO Unavailable Unavailable Carlos, Soraya DO Unavailable Unavailable Carlos, Soraya DO Unavailable Unavailable Carlos, Soraya DO Unavailable Unavailable Carlos, Soraya DO Unavailable Unavailable Carlos, Soraya DO Unavailable Unavailable Carlos, Soraya DO Unavailable Unavailable Carlos, Soraya DO Unavailable Unavailable Carlos, Soraya DO Unavailable Unavailable Carlos, Soraya DO Unavailable Unavailable Carlos, Soraya DO Unavailable Unavailable Carlos, Soraya DO Unavailable Unavailable Carlos, Soraya DO Unavailable Unavailable Carlos, Soraya DO Unavailable Unavailable Carlos, Soraya DO Unavailable Unavailable Carlos, Soraya DO Unavailable Unavailable Carlos, Soraya DO Unavailable Unavailable Carlos, Soraya DO Unavailable Unavailable Carlos, Soraya DO Unavailable Unavailable Carlos, Soraya DO Unavailable Unavailable Carlos, Soraya DO Unavailable Unavailable Carlos, Soraya DO Unavailable Unavailable Carlos, Soraya DO Unavailable Unavailable Carlos, Soraya DO Unavailable Unavailable Carlos, Soraya DO Unavailable Unavailable Carlos, Soraya DO Unavailable Unavailable Carlos, Soraya DO Unavailable Unavailable Carlos, Soraya DO Unavailable Unavailable Carlso, Soraya DO Unavailable Unavailable Carlos, Soraya DO Unavailable Unavailable Carlos, Soraya DO Unavailable Unavailable Carlos, Soraya DO Unavailable Unavailable Carlos, Soraya DO Unavailable Unavailable Carlos, Soraya DO Unavailable Unavailable Carlos, Soraya DO Unavailable Unavailable Carlos, Soraya DO Unavailable Unavailable Carlos, Soraya DO Unavailable Unavailable Carlos, Soraya DO Unavailable Unavailable Carlos, Soraya DO Unavailable Unavailable Carlos, Soraya DO Unavailable Unavailable Carlos, Soraya DO Unavailable Unavailable Carlos, Soraya DO Unavailable Unavailable Carlos, Soraya DO Unavailable Unavailable Carlos, Soraya DO Unavailable Unavailable Carlos, Soraya DO Unavailable Unavailable Carlos, Soraya DO Unavailable Unavailable Carlos, Soraya DO Unavailable Unavailable Carlos, Soraya DO Unavailable Unavailable Carlos, Osraya DO Unavailable Unavailable Carlos, Soraya DO Unavailable Unavailable Carlos, Soraya DO Unavailable Unavailable Carlos, Soraya DO Unavailable Unavailable Carlos, Soraya DO Unavailable Unavailable Carlos, Soraya DO Unavailable Unavailable Carlos, Soraya DO Unavailable Unavailable Carlos, Soraya DO Unavailable Unavailable Carlos, Soraya DO Unavailable Unavailable Carlos, Soraya DO Unavailable Unavailable Carlos, Soraya DO Unavailable Unavailable SEARS, A JT DO Unavailable Unavailable SEARS, A JT DO Unavailable Unavailable SEARS, A JT DO Unavailable Unavailable SEARS, A TJ DO Unavailable Unavailable SEARS, A JT DO Unavailable Unavailable SEARS, A JT DO Unavailable Unavailable SEARS, A JT DO Unavailable Unavailable SEARS, A JT DO Unavailable Unavailable SEARS, A JT DO Unavailable Unavailable SEARS, A JT DO Unavailable Unavailable SEARS, A JT DO Unavailable Unavailable SEARS, A JT DO Unavailable Unavailable SEARS, A JT DO Unavailable Unavailable SEARS, A JT DO Unavailable Unavailable SEARS, A JT DO Unavailable Unavailable SEARS, A JT DO Unavailable Unavailable SEARS, A JT DO Unavailable Unavailable SEARS, A JT DO Unavailable Unavailable SEARS, A JT DO Unavailable Unavailable SEARS, A JT DO Unavailable Unavailable SEARS, A JT DO Unavailable Unavailable SEARS, A JT DO Unavailable Unavailable SEARS, A JT DO Unavailable Unavailable SEARS, A JT DO Unavailable Unavailable SEARS, A JT DO Unavailable Unavailable SEARS, A JT DO Unavailable Unavailable SEARS, A JT DO Unavailable Unavailable SEARS, A JT DO Unavailable Unavailable SEARS, A JT DO Unavailable Unavailable SEARS, A JT DO Unavailable Unavailable SEARS, A JT DO Unavailable Unavailable SEARS, A JT DO Unavailable Unavailable SEARS, A JT DO Unavailable Unavailable SEARS, A JT DO Unavailable Unavailable SEARS, A JT DO Unavailable Unavailable SEARS, A JT DO Unavailable Unavailable SEARS, A JT DO Unavailable Unavailable SEARS, A JT DO Unavailable Unavailable SEARS, A JT DO Unavailable Unavailable SEARS, A JT DO Unavailable Unavailable SEARS, A JT DO Unavailable Unavailable SEARS, A JT DO Unavailable Unavailable SEARS, A JT DO Unavailable Unavailable SEARS, A JT DO Unavailable Unavailable SEARS, A JT DO Unavailable Unavailable SEARS, A JT DO Unavailable Unavailable SEARS, A JT DO Unavailable Unavailable SEARS, A JT DO Unavailable Unavailable MAJAK, R LOREN DPM Unavailable Unavailable MAJAK, R LOREN DPM Unavailable Unavailable MAJAK, R LOREN DPM Unavailable Unavailable MAJAK, R LOREN DPM Unavailable Unavailable MAJAK, R LOREN DPM Unavailable Unavailable MAJAK, R LOREN DPM Unavailable Unavailable MAJAK, R LOREN DPM Unavailable Unavailable MAJAK, R LOREN DPM Unavailable Unavailable MAJAK, R LOREN DPM Unavailable Unavailable MAJAK, R LOREN DPM Unavailable Unavailable MAJAK, R LOREN DPM Unavailable Unavailable MAJAK, R LOREN DPM Unavailable Unavailable MAJAK, R LOREN DPM Unavailable Unavailable MAJAK, R LOREN DPM Unavailable Unavailable MAJAK, R LOREN DPM Unavailable Unavailable MAJAK, R LOREN DPM Unavailable Unavailable MAJAK, R LOREN DPM Unavailable Unavailable MAJAK, R LOREN DPM Unavailable Unavailable MAJAK, R LOREN DPM Unavailable Unavailable MAJAK, R LOREN DPM Unavailable Unavailable MAJAK, R LOREN DPM Unavailable Unavailable MAJAK, R LOREN DPM Unavailable Unavailable MAJAK, R LOREN DPM Unavailable Unavailable MAJAK, R LOREN DPM Unavailable Unavailable MAJAK, R LOREN DPM Unavailable Unavailable MAJAK, R LOREN DPM Unavailable Unavailable MAJAK, R LOREN DPM Unavailable Unavailable MAJAK, R LOREN DPM Unavailable Unavailable MAJAK, R LOREN DPM Unavailable Unavailable MAJAK, R LOREN DPM Unavailable Unavailable MAJAK, R LOREN DPM Unavailable Unavailable MAJAK, R LOREN DPM Unavailable Unavailable SAMMI, L TULIO PA Unavailable Unavailable SAMMI, L TULIO PA Unavailable Unavailable SAMMI, L TULIO PA Unavailable Unavailable SAMMI, L TULIO PA Unavailable Unavailable SAMMI, L TULIO PA Unavailable Unavailable SAMMI, L TULIO PA Unavailable Unavailable SAMMI, L TULIO PA Unavailable Unavailable SAMMI, L TULIO PA Unavailable Unavailable SAMMI, L TULIO PA Unavailable Unavailable SAMMI, L TULIO PA Unavailable Unavailable SAMMI, L TULIO PA Unavailable Unavailable SAMMI, L TULIO PA Unavailable Unavailable SAMMI, L TULIO PA Unavailable Unavailable SAMMI, L TULIO PA Unavailable Unavailable SAMMI, L TULIO PA Unavailable Unavailable SAMMI, L TULIO PA Unavailable Unavailable MELLY, TAURUS PA Unavailable Unavailable MELLY, TAURUS PA Unavailable Unavailable MELLY, TAURUS PA Unavailable Unavailable MELLY, TAURUS PA Unavailable Unavailable MELLY, TAURUS PA Unavailable Unavailable MELLY, TAURUS PA Unavailable Unavailable MELLY, TAURUS PA Unavailable Unavailable MELLY, TAURUS PA Unavailable Unavailable MELLY, TAURUS PA Unavailable Unavailable MELLY, TAURUS PA Unavailable Unavailable MELLY, TAURUS PA Unavailable Unavailable MELLY, TAURUS PA Unavailable Unavailable MELLY, TAURUS PA Unavailable Unavailable MELLY, TAURUS PA Unavailable Unavailable MELLY, TAURUS PA Unavailable Unavailable MELLY, TAURUS PA Unavailable Unavailable MELLY, TAURUS PA Unavailable Unavailable MELLY, TAURUS PA Unavailable Unavailable MELLY, TAURUS PA Unavailable Unavailable MELLY, TAURUS PA Unavailable Unavailable MELLY, TAURUS PA Unavailable Unavailable MELLY, TAURUS PA Unavailable Unavailable MELLY, TAURUS PA Unavailable Unavailable MELLY, TAURUS PA Unavailable Unavailable MELLY, TAURUS PA Unavailable Unavailable MELLY, TAURUS PA Unavailable Unavailable MELLY, TAURUS PA Unavailable Unavailable MELLY, TAURUS PA Unavailable Unavailable MELLY, TAURUS PA Unavailable Unavailable MELLY, TAURUS PA Unavailable Unavailable MELLY, TAURUS PA Unavailable Unavailable MELLY, TAURUS PA Unavailable Unavailable MELLY, TAURUS PA Unavailable Unavailable MELLY, TAURUS PA Unavailable Unavailable MELLY, TAURUS PA Unavailable Unavailable MELLY, TAURUS PA Unavailable Unavailable KNIGHT, M KIRSTEN PA Unavailable Unavailable KNIGHT, M KIRSTEN PA Unavailable Unavailable KNIGHT, M KIRSTEN PA Unavailable Unavailable KNIGHT, M KIRSTEN PA Unavailable Unavailable KNIGHT, M KIRSTEN PA Unavailable Unavailable KNIGHT, M KIRSTEN PA Unavailable Unavailable KNIGHT, M KIRSTEN PA Unavailable Unavailable KNIGHT, M KIRSTEN PA Unavailable Unavailable KNIGHT, M KIRSTEN PA Unavailable Unavailable KNIGHT, M KIRSTEN PA Unavailable Unavailable KNIGHT, M KIRSTEN PA Unavailable Unavailable KNIGHT, M KIRSTEN PA Unavailable Unavailable KNIGHT, M KIRSTEN PA Unavailable Unavailable KNIGHT, M KIRSTEN PA Unavailable Unavailable KNIGHT, M KIRSTEN PA Unavailable Unavailable KNIGHT, M KIRSTEN PA Unavailable Unavailable KNIGHT, M KIRSTEN PA Unavailable Unavailable KNIGHT, M KIRSTEN PA Unavailable Unavailable KNIGHT, M KIRSTEN PA Unavailable Unavailable KNIGHT, M KIRSTEN PA Unavailable Unavailable KNIGHT, M KIRSTEN PA Unavailable Unavailable KNIGHT, M KIRSTEN PA Unavailable Unavailable KNIGHT, M KIRSTEN PA Unavailable Unavailable KNIGHT, M KIRSTEN PA Unavailable Unavailable KNIGHT, M KIRSTEN PA Unavailable Unavailable KNIGHT, M KIRSTEN PA Unavailable Unavailable KNIGHT, M KIRSTEN PA Unavailable Unavailable KNIGHT, M KIRSTEN PA Unavailable Unavailable KNIGHT, M KIRSTEN PA Unavailable Unavailable KNIGHT, M KIRSTEN PA Unavailable Unavailable KNIGHT, M KIRSTEN PA Unavailable Unavailable KNIGHT, M KIRSTEN PA Unavailable Unavailable KNIGHT, M KIRSTEN PA Unavailable Unavailable KNIGHT, M KIRSTEN PA Unavailable Unavailable KNIGHT, M KIRSTEN PA Unavailable Unavailable Re-disclosure Warning The records that you are about to access may contain information from federally-assisted alcohol or drug abuse programs. If such information is present, then the following federally mandated warning applies: This information has been disclosed to you from records protected by federal confidentiality rules (42 CFR part 2). The federal rules prohibit you from making any further disclosure of this information unless further disclosure is expressly permitted by the written consent of the person to whom it pertains or as otherwise permitted by 42 CFR part 2. A general authorization for the release of medical or other information is NOT sufficient for this purpose. The Federal rules restrict any use of the information to criminally investigate or prosecute any alcohol or drug abuse patient.The records that you are about to access may contain highly sensitive health information, the redisclosure of which is protected by Article 27-F of the [facility] Public Health law. If you continue you may have access to information: Regarding HIV / AIDS; Provided by facilities licensed or operated by the [facility] Office of Mental Health; or Provided by the [facility] Office for People With Developmental Disabilities. If such information is present, then the following [facility] mandated warning applies: This information has been disclosed to you from confidential records which are protected by state law. State law prohibits you from making any further disclosure of this information without the specific written consent of the person to whom it pertains, or as otherwise permitted by law. Any unauthorized further disclosure in violation of state law may result in a fine or fci sentence or both. A general authorization for the release of medical or other information is NOT sufficient authorization for further disc losure. Allergies and Adverse Reactions Type Description Substance Reaction Status Data Source(s ) Drug Allergy Drug Allergy NKDA [facility] ([facility]) Encounters Encounter Providers Location Date Indications Data Source(s ) Outpatient Attender: Soraya Campbell 01/14 03:00:00 PM EDT [facility] ([facility] ) Office Visit Attender: LARA SILVA MD Main Office 12/26/2020 08:00:0 0 PM EDT [facility] ([facility]) Outpatient Attender: JT Knowles/[place] 12/13/2020 10:00:00 AM EDT [facility] ([facility]) Outpatient Attender: Soraya Campbell 12/07 01:30:00 PM EDT [facility] ([facility] ) Unknown [address] [facility] [id number] 12/03/2020 12:00:00 AM EDT eCW1 ([facility]) Office Visit Attender: LARA SILVA MD Main Office 11/13/2020 05:11:0 0 PM EDT [facility] ([facility]) Outpatient Attender: Soraya Campbell 11/09 11:00:00 AM EDT [facility] ([facility] ) Outpatient Attender: TULIO BILLS Main Office 11/02/2020 0 8:00:00 AM EDT [facility] ([facility]) Office Visit Attender: LARA SILVA MD Main Office 10/25/2020 05:51:0 0 PM EDT [facility] ([facility]) Unknown [address] [facility] [id number] 10/23/2020 12:00:00 AM EDT eCW1 ([facility]) Outpatient Attender: GROVER solis 09/24/2020 01:50:00 PM EDT [facility] ([facility]) (Cysto1) Urology [address] [place] [address] 09/24/2020 12:00:00 AM EDT eCW1 ([facility]) Outpatient Attender: TAURUS Helm ry 09/20/2020 03:00:00 PM EDT [facility] ([facility]) Office Visit Attender: LARA SILVA MD Main Office 09/17/2020 01:44:0 0 PM EDT [facility] ([facility]) Outpatient Attender: TULIO BILLS Main Office 09/12/2020 0 1:00:00 PM EDT [facility] ([facility]) Outpatient Attender: Soraya Campbell 09/07 11:00:00 AM EDT [facility] ([facility] ) Outpatient Attender: LOREN DELEON [facility] Office 08/12 03:00:00 PM EDT [facility] ([facility] Outpatient Attender: Soraya Gundersonronna 08/21 02:00:00 PM EDT [facility] ([facility] ) Office Visit Attender: LARA SILVA MD Main Office 08/17/2020 03:10:0 0 PM EDT [facility] ([facility]) Outpatient Attender: Samantha BILLS Main Office 07/26/2020 09:30:00 AM EDT [facility] ([facility]) Outpatient [address] [facility] [address] 07/17/2020 12:00:00 AM EDT eCW1 ([facility]) Office Visit Attender: LARA SILVA MD Main Office 07/16/2020 01:35:0 0 PM EDT [facility] ([facility]) Outpatient Attender: Samantha BILLS Main Office 07/12/2020 11:15:00 AM EDT [facility] ([facility]) Outpatient Attender: Soraya Carlosarelis Campbell 07/09 11:00:00 AM EDT [facility] ([facility] ) Office Visit Attender: LARA SILVA MD Main Office 06/13/2020 10:11:0 0 AM EST [facility] ([facility]) Outpatient Attender: KIRSTEN Redd/[place]/Gopi/Rein dl 06/12/2020 09:00:00 AM EST [facility] ([facility]) Outpatient Attender: LARA SILVA MD Main Office 06/06/2020 08:00:00 AM EST [facility] ([facility]) Outpatient Attender: Samantha BILLS Main Office 05/03/2020 08:15:00 AM EST [facility] ([facility]) Office Visit Attender: LARA SILVA MD Main Office 04/27/2020 02:56:0 0 PM EST [facility] ([facility]) Outpatient Attender: Samantha BILLS Main Office 03/26/2020 08:30:00 AM EST [facility] ([facility]) (Cysto1) Urology [address] [place] [address] 03/26/2020 12:00:00 AM EST eCW1 ([facility]) Outpatient Attender: KIRSTEN Delgadoang/[place]/Gopi/Rein dl 03/21/2020 10:00:00 AM EST [facility] ([facility] Outpatient Attender: KIRSTEN Redd/[place]/Gopi/Rein dl 03/20/2020 09:30:00 AM EST [facility] ([facility]) OFFICE OUTPATIENT NEW 60 MINUTES Attender: LARA SILVA MD Main Office 02/22/2020 11:45:00 AM EST [facility] ([facility]) OFFICE OUTPATIENT NEW 30 MINUTES Attender: Soraya Victoria 02/17/2020 12:00:00 PM EST [facility] [place] [address] [facility] [address] 02/14/2020 12:00:00 AM EST eCW1 ([facility]) Out[place] [address] [facility] [address] 02/13/2020 12:00:00 AM EST eCW1 ([facility]) Outpatient [address] [facility] [address] 01/19/2020 12:00:00 AM EDT eCW1 ([facility]) Immunizations Vaccine Date Status Description Data Source(s) COVID-19 VACC, MRNA(PFIZER)/PF 02/13/2021 12:00:00 AM EDT completed [facility] COVID-19 VACCINE Pfizer 01/24/2021 12:00:00 AM EDT completed [facility] Vaccine Series Complete: YESThis Data wa s Submitted to [facility] [employer]. COVID-19 VACCINE Pfizer 05/17/2020 12:00:00 AM EST completed [facility] Vaccine Series Complete: YESThis Data wa s Submitted to [facility] [employer]. COVID-19 VACCINE Pfizer 04/26/2020 12:00:00 AM EST completed [facility] Vaccine Series Complete: NOThis Data was Submitted to [facility] [employer]. Medications Medication Brand Name Start Date Product Form Dose Route Admi nistrative Instructions Pharmacy Instructions Status Indications Reaction Description Data Source(s) 240 mcg/0.7 mL 01/22/2021 12:00:00 AM EDT syringe 0 INJECT DIRECTED INJECT DIRECTED SOLD: 01/23/2021 [facility] 75 mg 01/01/2021 12:00:00 AM EDT capsule 90 TAKE ONE CAPSULE BY MOUTH EVERY DAY IN THE EVENING MAXIMUM DAILY DOSE = 1 CAPSULE TAKE ONE CAPSULE BY MOUTH EVERY DAY IN THE EVENING MAXIMUM DAILY DOSE = 1 CAPSULE SOLD: 01/04/2021 [facility] Amiodarone hydrochloride 200 MG Oral Tablet AMIODARONE HCL 12/31/2020 12:00:00 AM EDT tablet 90 TAKE ONE TABLET BY MOUTH MARK DAY TAKE ONE TABLET BY MOUTH EVERY DAY SOLD: 01/04/2021 [facility] POLYETHYLENE GLYCOL 3350 142 MG/ML Oral Solution [Miralax] M iralax 12/26/2020 12:00:00 AM EDT active M EDENT ([facility]) Docusate Sodium 100 MG Oral Capsule [Colace] Colace 12:00:00 AM EDT ORAL active MED[facility] ( [facility]) Docusate Sodium 100 MG Oral Capsule [Colace] Colace 01/2021 12:00:00 AM EDT ORAL active MEDENT ( [facility]) 2.5 mg /3 mL (0.083 %) 12/14/2020 12:00:00 AM EDT solu tion for nebulization 375 USE 1 VIAL VIA NEBULIZER FOUR TIMES A DA Y NEEDED USE 1 VIAL VIA NEBULIZER FOUR TIMES A DAY NEEDED SOLD: 12/15/2020 [facility] Levothyroxine Sodium 0.112 MG Oral Tablet Levothyroxine Sodi um 12/13/2020 12:00:00 AM EDT ORAL active M EDENT ([facility]) 112 mcg 12/13/2020 12:00:00 AM EDT tablet 90 TAKE ONE TABLET BY MOUTH EVERY DAY TAKE ONE TABLET BY MOUTH EVERY DAY SOLD: 12/15/2020 [facility] Albuterol 0.83 MG/ML Inhalant Solution Albuterol Sulfate 0 12/13/2020 12:00:00 AM EDT active MEDENT ([facility], ) 0.4 mg 12/08/2020 12:00:00 AM EDT capsule 90 TAKE ONE CAPSULE BY MOUTH 1/2 HOUR AFTER THE SAME MEAL EACH DAY TAKE ONE CAPSULE BY MOUTH 1/2 HOUR AFTER THE SAME MEAL EACH DAY SOLD: 12/09/2020 [facility] 10 mg 12/08/2020 12:00:00 AM EDT tablet 90 TAKE ONE TABLET BY MOUTH EVERY DAY TAKE ONE TABLET BY MOUTH EVERY DAY SOLD: 12/09/2020 [facility] 125 mcg 12/08/2020 12:00:00 AM EDT tablet 90 TAKE ONE TABLET BY MOUTH EVERY DAY TAKE ONE TABLET BY MOUTH EVERY DAY SOLD: 12/09/2020 [facility] Magnesium Oxide 400 MG Oral Tablet Magnesium Oxide 12/07/2020 12:00 :00 AM EDT ORAL active MEDENT ([facility]) Levothyroxine Sodium 0.125 MG Oral Tablet Levothyroxine Sodi um 12/07/2020 12:00:00 AM EDT ORAL completed MEDENT ([facility]) Finasteride 5 MG Oral Tablet FINASTERIDE 12/03/2020 12:00:00 AM EDT ta blet 90 TAKE ONE TABLET BY MOUTH EVERY DAY TAKE ONE TABLET BY MOUTH EVERY DAY SOLD: 12/05/2020 [facility] 300 mg 12/01/2020 12:00:00 AM EDT capsule 20 TAKE ONE CAPSULE BY MOUTH TWICE A DAY TAKE ONE CAPSULE BY MOUTH TWICE A DAY SOLD: 12/01/2020 [facility] 1 billion cell 12/01/2020 12:00:00 AM EDT capsule 40 TAKE ONE CAPSULE BY MOUTH WITH MEALS AND AT BEDTIME TAKE ONE CAPSULE BY MOUTH WITH MEALS AND AT BEDTIME SOLD: 12/01/2020 [facility] doxycycline hyclate 100 MG Oral Capsule DOXYCYCLINE HYCLATE 12/01/2020 12:00:00 AM EDT capsule 20 TAKE ONE CAPSULE BY MOUTH TW ICE A DAY TAKE ONE CAPSULE BY MOUTH TWICE A DAY SOLD: 12/01/2020 [facility] sennosides, PENITENTIARY 8.6 MG Oral Tablet [Senokot] Senokot 12:00:00 AM EDT active MEDENT ( [facility]) Amiodarone hydrochloride 200 MG Oral Tablet Amiodarone HCL 11/02/2020 12:00:00 AM EDT ORAL active [facility] Amiodarone hydrochloride 200 MG Oral Tablet AMIODARONE HCL 11/02/2020 12:00:00 AM EDT tablet 120 TAKE ONE TABLET BY MOUTH THREE TIMES A DAY FOR 2 WEEKS,THEN DECREASE TO 1 TAB. TWICE DAILY FOR 4 WEEKS, THEN 1 TAB. DAILY THEREAFTER TAKE ONE TABLET BY MOUTH THREE TIMES A DAY FOR 2 WEEKS,THEN DECREASE TO 1 TAB. TWICE DAILY FOR 4 WEEKS, THEN 1 TAB. DAILY THEREAFTER SOLD: 11/02/2020 [facility] Fluticasone Propionate Nasal Marion 24- Hour Fluticason e Propionate Nasal [place] 24- Hour 11/01/2020 12:00:00 AM EDT active MED[facility] ([facility]) Loratadine 10 MG Oral Capsule Loratadine 11/01/2020 12:00:00 AM EDT ORAL active [facility] ([facility]) 2.5 mg 10/31/2020 12:00:00 AM EDT tablet 60 TAKE ONE TABLET BY MOUTH TWICE A DAY TAKE ONE TABLET BY MOUTH TWICE A DAY SOLD: 10/31/2020 [facility] atorvastatin 20 MG Oral Tablet ATORVASTATIN CALCIUM 10/31/2020 1 2:00:00 AM EDT tablet 30 TAKE ONE TABLET BY MOUTH EVERY D AY TAKE ONE TABLET BY MOUTH EVERY DAY SOLD: 10/31/2020 [facility] 10 mg 10/31/2020 12:00:00 AM EDT tablet 30 TAKE ONE TABLET BY MOUTH EVERY DAY TAKE ONE TABLET BY MOUTH EVERY DAY SOLD: 10/31/2020 [facility] 0.4 mg 10/31/2020 12:00:00 AM EDT capsule 30 TAKE ONE CAPSULE BY MOUTH EVERY DAY TAKE ONE CAPSULE BY MOUTH EVERY DAY SOLD: 10/31/2020 [facility] Finasteride 5 MG Oral Tablet FINASTERIDE 10/31/2020 12:00:00 AM EDT ta blet 30 TAKE ONE TABLET BY MOUTH EVERY DAY TAKE ONE TABLET BY MOUTH EVERY DAY SOLD: 10/31/2020 [facility] Fluticasone propionate 0.05 MG/ACTUAT Metered Dose Yohannes al [place] 50 mcg/actuation FLUTICASONE PROPIONATE 10/31/2020 12:00:00 AM EDT spray,suspension 16 SPRAY 1 SPRAY IN EACH NOSTRIL TWICE DAILY SPRAY 1 SPRAY IN EACH NOSTRIL TWICE DAILY SOLD: 10/31/2020 [facility] 112 mcg 10/31/2020 12:00:00 AM EDT tablet 30 TAKE ONE TABLET BY MOUTH EVERY DAY AT 6AM. TAKE ONE TABLET BY MOUTH EVERY DAY AT 6AM. SOLD: 10/31/2020 [facility] 0.12 % 10/31/2020 12:00:00 AM EDT mouthwash 946 USE 15ML BY MOUTH THREE TIMES A DAY USE 15ML BY MOUTH THREE TIMES A DAY SOLD: 10/31/2020 [facility] pantoprazole 40 MG Delayed Release Oral Tablet PANTOPRAZOLE SODIUM 10/31/2020 12:00:00 AM EDT tablet,delayed release (DR/EC) 30 T JIE ONE TABLET BY MOUTH EVERY DAY TAKE ONE TABLET BY MOUTH EVERY DAY SOLD: 10/31/2020 [facility] Amoxicillin 500 MG / Clavulanate 125 MG Oral Tablet [Augment in] Augmentin 09/27/2020 12:00:00 AM EDT ORAL completed MEDENT ([facility]) Amoxicillin 500 MG / Clavulanate 125 MG Oral Tablet 50 0-125 mg AMOXICILLIN/POTASSIUM CLAV 09/27/2020 12:00:00 AM EDT tablet 20 TAKE ONE TABLET BY MOUTH TWICE A DAY WITH FOOD FOR 10 DAYS TAKE ONE TABLET BY MOUTH TWICE A DAY WITH FOOD FOR 10 DAYS SOLD: 09/27/2020 [facility] Doxycycline Monohydrate 100 MG Oral Capsule Doxycycline Alcorn hydrate 09/20/2020 12:00:00 AM EDT ORAL active M EDENT ([facility]) 100 mg 09/20/2020 12:00:00 AM EDT capsule 20 TAKE ONE CAPSULE BY MOUTH TWICE A DAY FOR 10 DAYS TAKE ONE CAPSULE BY MOUTH TWICE A DAY FOR 10 DAYS SOLD : 09/21/2020 [facility] 75 mg 09/18/2020 12:00:00 AM EDT capsule 90 TAKE ONE CAPSULE BY MOUTH EVERY EVENING MAXIMUM DAILY DOSE = 1 TAKE ONE CAPSULE BY MOUTH EVERY EVENING MAXIMUM DAILY DOSE = 1 SOLD: 09/20/2020 [facility] Nystatin 09/11/2020 12:00:00 AM EDT active MEDENT ([facility]) torsemide 10 MG Oral Tablet Torsemide 09/11/2020 12:00:00 AM EDT ORAL active [facility] ([facility]) ferrous gluconate 324 MG Oral Tablet Ferrous Gluconate 04/2020 12:00:00 AM EDT ORAL active [facility] ([facility] atorvastatin 20 MG Oral Tablet Atorvastatin Calcium 09/11/2020 1 2:00:00 AM EDT ORAL active MED[facility] ( [facility]) 324 mg (38 mg iron) 09/07/2020 12:00:00 AM EDT tablet 30 TAKE ONE TABLET BY MOUTH EVERY DAY TAKE ONE TABLET BY MOUTH EVERY DAY SOLD: 11/19/2020 [facility] 324 mg (38 mg iron) 09/07/2020 12:00:00 AM EDT tablet 30 TAKE ONE TABLET BY MOUTH EVERY DAY TAKE ONE TABLET BY MOUTH EVERY DAY SOLD: 09/07/2020 [facility] 10 mg 09/07/2020 12:00:00 AM EDT tablet 60 TAKE TWO TABLETS BY MOUTH EVERY DAY FOR 3 DAYS THEN 1 TABLET DAILY AFTER THAT TAKE TWO TABLETS BY MOUTH EVERY DAY FOR 3 DAYS THEN 1 TABLET DAILY AFTER THAT SOLD: 09/10/2020 [facility] ferrous gluconate 324 MG Oral Tablet Ferrous Gluconate 12:00:00 AM EDT ORAL active MED[facility] ([facility]) torsemide 10 MG Oral Tablet Torsemide 09/07/2020 12:00:00 AM EDT ORAL active MEDENT ([facility]) Amoxicillin 500 MG / Clavulanate 125 MG Oral Tablet [Augment in] Augmentin 09/07/2020 12:00:00 AM EDT ORAL completed MED[facility] ([facility]) Amoxicillin 500 MG / Clavulanate 125 MG Oral Tablet 50 0-125 mg AMOXICILLIN/POTASSIUM CLAV 09/07/2020 12:00:00 AM EDT tablet 4 TAKE ONE TABLET BY MOUTH TWICE A DAY WITH FOOD FOR 2 DAYS TAKE ONE TABLET BY MOUTH TWICE A DAY WITH FOOD FOR 2 DAYS SOLD: 09/07/2020 [facility] 324 mg (38 mg iron) 09/07/2020 12:00:00 AM EDT tablet 30 TAKE ONE TABLET BY MOUTH EVERY DAY TAKE ONE TABLET BY MOUTH EVERY DAY SOLD: 12/18/2020 [facility] 324 mg (38 mg iron) 09/07/2020 12:00:00 AM EDT tablet 30 TAKE ONE TABLET BY MOUTH EVERY DAY TAKE ONE TABLET BY MOUTH EVERY DAY SOLD: 10/10/2020 [facility] Amoxicillin 875 MG / Clavulanate 125 MG Oral Tablet 87 5-125 mg AMOXICILLIN/POTASSIUM CLAV 09/02/2020 12:00:00 AM EDT tablet 16 TAKE ONE TABLET BY MOUTH TWICE A DAY FOR 8 DAYS TAKE ONE TABLET BY MOUTH TWICE A DAY FOR 8 DAYS SOLD: 09/02/2020 [facility] Nystatin 100 UNT/MG Topical Powder 100,000 unit/gram NYSTATI N 09/02/2020 12:00:00 AM EDT powder 15 APPLY TO AFFECTE D AREA(S) TWO TIMES A DAY FOR 7 DAYS APPLY TO AFFECTED AREA(S) TWO TIMES A DAY FOR 7 DAYS SOLD: 09/02/2020 [facility] 20 mg 08/24/2020 12:00:00 AM EDT tablet 30 TAKE ONE TABLET BY MOUTH EVERY DAY TAKE ONE TABLET BY MOUTH EVERY DAY SOLD: 08/27/2020 [facility] torsemide 20 MG Oral Tablet Torsemide 08/23/2020 12:00:00 AM EDT ORAL completed [facility] ([facility] atorvastatin 20 MG Oral Tablet ATORVASTATIN CALCIUM 08/22/2020 1 2:00:00 AM EDT tablet 30 TAKE ONE TABLET BY MOUTH EVERY D AY TAKE ONE TABLET BY MOUTH EVERY DAY SOLD: 08/23/2020 [facility] atorvastatin 20 MG Oral Tablet ATORVASTATIN CALCIUM 08/22/2020 1 2:00:00 AM EDT tablet 30 TAKE ONE TABLET BY MOUTH EVERY D AY TAKE ONE TABLET BY MOUTH EVERY DAY SOLD: 02/06/2021 [facility] atorvastatin 20 MG Oral Tablet ATORVASTATIN CALCIUM 08/22/2020 1 2:00:00 AM EDT tablet 30 TAKE ONE TABLET BY MOUTH EVERY D AY TAKE ONE TABLET BY MOUTH EVERY DAY SOLD: 09/24/2020 [facility] pantoprazole 40 MG Delayed Release Oral Tablet PANTOPRAZOLE SODIUM 08/22/2020 12:00:00 AM EDT tablet,delayed release (DR/EC) 90 T JIE ONE TABLET BY MOUTH EVERY DAY TAKE ONE TABLET BY MOUTH EVERY DAY SOLD: 01/04/2021 [facility] atorvastatin 20 MG Oral Tablet ATORVASTATIN CALCIUM 08/22/2020 1 2:00:00 AM EDT tablet 30 TAKE ONE TABLET BY MOUTH EVERY D AY TAKE ONE TABLET BY MOUTH EVERY DAY SOLD: 12/13/2020 [facility] pantoprazole 40 MG Delayed Release Oral Tablet PANTOPRAZOLE SODIUM 08/22/2020 12:00:00 AM EDT tablet,delayed release (DR/EC) 90 T JIE ONE TABLET BY MOUTH EVERY DAY TAKE ONE TABLET BY MOUTH EVERY DAY SOLD: 08/23/2020 [facility] atorvastatin 20 MG Oral Tablet ATORVASTATIN CALCIUM 08/22/2020 1 2:00:00 AM EDT tablet 30 TAKE ONE TABLET BY MOUTH EVERY D AY TAKE ONE TABLET BY MOUTH EVERY DAY SOLD: 01/11/2021 [facility] 10 mg 08/22/2020 12:00:00 AM EDT tablet 30 TAKE TWO TABLETS BY MOUTH EVERY DAY FOR 3 DAYS THEN ONE TABLET DAILY AFTER THAT TAKE TWO TABLETS BY MOUTH EVERY DAY FOR 3 DAYS THEN ONE TABLET DAILY AFTER THAT SOLD: 08/23/2020 [facility] torsemide 10 MG Oral Tablet Torsemide 08/21/2020 12:00:00 AM EDT ORAL completed MEDENT ([facility]) atorvastatin 20 MG Oral Tablet Atorvastatin Calcium 08/21/2020 1 2:00:00 AM EDT ORAL active MEDENT ( [facility]) 875-125 mg 07/03/2020 12:00:00 AM EDT tablet 14 TAKE ONE TABLET BY MOUTH TWICE A DAY TAKE ONE TABLET BY MOUTH TWICE A DAY SOLD: 07/03/2020 [facility] 75 mg 06/06/2020 12:00:00 AM EST capsule 90 TAKE ONE CAPSULE BY MOUTH IN THE EVENING MAXIMUM DAILY DOSE = 1 CAPSULE TAKE ONE CAPSULE BY MOUTH IN THE EVENING MAXIMUM DAILY DOSE = 1 CAPSULE SOLD: 06/08/2020 [facility] Covid-19 vaccine, Unspecified 05/17/2020 12:00:00 AM EST completed [facility] ([facility]) Medication administered onsite 20 mg 04/27/2020 12:00:00 AM EST tablet 90 TAKE ONE TABLET BY MOUTH EVERY DAY AT BEDTIME TAKE ONE TABLET BY MOUTH EVERY DAY AT BEDTIME SOLD: 05/03/2020 [facility] Covid-19 vaccine, Unspecified 04/26/2020 12:00:00 AM EST completed [facility] ([facility]) Medication administered onsite Potassium Chloride 10 MEQ Extended Release Oral Capsule POTA SSIUM CHLORIDE 04/20/2020 12:00:00 AM EST capsule, extended release 90 TAKE ONE CAPSULE BY MOUTH EVERY DAY TAKE ONE CAPSULE BY MOUTH EVERY DAY SOLD: 04/22/2020 [facility] Potassium Chloride 10 MEQ Extended Release Oral Capsule POTA SSIUM CHLORIDE 04/20/2020 12:00:00 AM EST capsule, extended release 90 TAKE ONE CAPSULE BY MOUTH EVERY DAY TAKE ONE CAPSULE BY MOUTH EVERY DAY SOLD: 07/24/2020 [facility] Potassium Chloride 10 MEQ Extended Release Oral Capsule Pota ssium Chloride ER 04/20/2020 12:00:00 AM EST ORAL completed MEDENT ([facility]) 2.5 mg 04/17/2020 12:00:00 AM EST tablet 180 TAKE ONE TABLET BY MOUTH TWICE A DAY TAKE ONE TABLET BY MOUTH TWICE A DAY SOLD: 12/07/2020 [facility] 2.5 mg 04/17/2020 12:00:00 AM EST tablet 180 TAKE ONE TABLET BY MOUTH TWICE A DAY TAKE ONE TABLET BY MOUTH TWICE A DAY SOLD: 07/24/2020 [facility] 2.5 mg 04/17/2020 12:00:00 AM EST tablet 180 TAKE ONE TABLET BY MOUTH TWICE A DAY TAKE ONE TABLET BY MOUTH TWICE A DAY SOLD: 04/18/2020 [facility] 90 mcg/actuation 04/07/2020 12:00:00 AM EST HFA aerosol inha ler 18 INHALE TWO PUFFS BY MOUTH FOUR TIMES A DAY NEEDED INHALE TWO PUFFS BY MOUTH FOUR TIMES A DAY NEEDED SOLD: 04/07/2020 [facility] 112 mcg 04/05/2020 12:00:00 AM EST tablet 90 TAKE ONE TABLET BY MOUTH EVERY DAY TAKE ONE TABLET BY MOUTH EVERY DAY SOLD: 04/07/2020 [facility] 112 mcg 04/05/2020 12:00:00 AM EST tablet 90 TAKE ONE TABLET BY MOUTH EVERY DAY TAKE ONE TABLET BY MOUTH EVERY DAY SOLD: 07/10/2020 [facility] 2.5 mg /3 mL (0.083 %) 03/21/2020 12:00:00 AM EST solu tion for nebulization 300 USE 1 VIAL VIA NEBULIZER TWO TIMES A DAY AND EVERY 6 HOURS NEEDED USE 1 VIAL VIA NEBULIZER TWO TIMES A DAY AND EVERY 6 HOURS NEEDED SOLD: 03/23/2020 [facility] 90 mcg/actuation 03/21/2020 12:00:00 AM EST HFA aerosol inha ler 18 INHALE TWO PUFFS BY MOUTH FOUR TIMES A DAY NEEDED INHALE TWO PUFFS BY MOUTH FOUR TIMES A DAY NEEDED SOLD: 03/23/2020 [facility] Albuterol 0.83 MG/ML Inhalant Solution Albuterol Sulfate 1 05/21/2019 12:00:00 AM EST completed [facility] ([facility], ) 200 ACTUAT Albuterol 0.09 MG/ACTUAT Metered Dose Inhal er [Ventolin] Ventolin HFA 03/20/2020 12:00:00 AM EST RESPIRATORY completed [facility] ([facility], ) Trelegy Ellipta Trelegy Ellipta 03/20/2020 12:00:00 AM EST RESPIRATORY completed [facility] ([facility], ) 50 mg 03/09/2020 12:00:00 AM EST tablet extended release 24 hr 90 TAKE ONE TABLET BY MOUTH EVERY DAY TAKE ONE TABLET BY MOUTH EVERY DAY SOLD: 03/11/2020 [facility] 50 mg 03/09/2020 12:00:00 AM EST tablet extended release 24 hr 90 TAKE ONE TABLET BY MOUTH EVERY DAY TAKE ONE TABLET BY MOUTH EVERY DAY SOLD: 06/08/2020 [facility] Potassium Chloride 10 MEQ Extended Release Oral Capsule Pota ssium Chloride ER 02/21/2020 12:00:00 AM EST ORAL active [facility] ([facility]) Simvastatin 20 MG Oral Tablet Simvastatin 02/21/2020 12:00:00 AM EST ORAL active [facility] ([facility]) 24 HR metoprolol succinate 50 MG Extended Release Oral Tablet Metoprolol Succinate ER 02/21/2020 12:00:00 AM EST ORAL active [facility] ([facility]) Multivitamin Adult 02/21/2020 12:00:00 AM EST ORAL active [facility] ([facility]) Aspirin 81 MG Delayed Release Oral Tablet Aspirin 02/21/2020 1 2:00:00 AM EST ORAL [facility] Finasteride 5 MG Oral Tablet Finasteride 02/21/2020 12:00:00 AM EST ORAL active [facility] ([facility]) Levothyroxine Sodium 0.112 MG Oral Tablet Levothyroxine Sodi um 02/21/2020 12:00:00 AM EST ORAL active M [facility] ([facility]) Tamsulosin hydrochloride 0.4 MG Oral Capsule Tamsulosin HCL 02/21/2020 12:00:00 AM EST ORAL active [facility] ([facility] apixaban 2.5 MG Oral Tablet [Eliquis] Eliquis 02/21/2020 12:00:00 AM EST ORAL active [facility] ([facility]) Brooke-bid Probiotic 02/21/2020 12:00:00 AM EST active [facility] ([facility]) pantoprazole 40 MG Delayed Release Oral Tablet Pantoprazole Sodium 02/21/2020 12:00:00 AM EST ORAL active [facility] ([facility]) docosahexaenoic acid 120 MG / Eicosapentaenoic Acid 180 MG O ral Capsule [place] 3 02/20/2020 12:00:00 AM EST ORAL active [facility] ([facility]) pregabalin 75 MG Oral Capsule [Lyrica] Lyrica 02/20/2020 12:00:00 AM EST ORAL active [facility] ([facility] 20 mg 02/20/2020 12:00:00 AM EST tablet 90 TAKE ONE TABLET BY MOUTH EVERY DAY AT BEDTIME TAKE ONE TABLET BY MOUTH EVERY DAY AT BEDTIME SOLD: 02/22/2020 [facility] 75 mg 02/18/2020 12:00:00 AM EST capsule 90 TAKE ONE CAPSULE BY MOUTH EVERY DAY IN THE EVENING MAXIMUM DAILY DOSE = 1 TAKE ONE CAPSULE BY MOUTH EVERY DAY IN THE EVENING MAXIMUM DAILY DOSE = 1 SOLD: 02/20/2020 [facility] pantoprazole 40 MG Delayed Release Oral Tablet PANTOPRAZOLE SODIUM 02/18/2020 12:00:00 AM EST tablet,delayed release (DR/EC) 90 T JIE ONE TABLET BY MOUTH EVERY DAY TAKE ONE TABLET BY MOUTH EVERY DAY SOLD: 02/20/2020 [facility] 0.4 mg 02/18/2020 12:00:00 AM EST capsule 90 TAKE ONE CAPSULE BY MOUTH EVERY DAY 1/2 HOUR AFTER THE SAME MEAL TAKE ONE CAPSULE BY MOUTH EVERY DAY 1/2 HOUR AFTER THE SAME MEAL SOLD: 02/20/2020 [facility] pantoprazole 40 MG Delayed Release Oral Tablet PANTOPRAZOLE SODIUM 02/18/2020 12:00:00 AM EST tablet,delayed release (DR/EC) 90 T JIE ONE TABLET BY MOUTH EVERY DAY TAKE ONE TABLET BY MOUTH EVERY DAY SOLD: 05/18/2020 [facility] Simvastatin 20 MG Oral Tablet Simvastatin 02/17/2020 12:00:00 AM EST ORAL active MED[facility] ([facility]) pregabalin 75 MG Oral Capsule Pregabalin 02/17/2020 12:00:00 AM EST active MED[facility] ([facility]) apixaban 2.5 MG Oral Tablet [Eliquis] Eliquis 02/17/2020 12:00:00 AM EST ORAL active [facility] ([facility]) Levothyroxine Sodium 0.112 MG Oral Tablet Levothyroxine Sodi um 02/17/2020 12:00:00 AM EST ORAL active M [facility] ([facility]) Finasteride 5 MG Oral Tablet Finasteride 02/17/2020 12:00:00 AM EST ORAL active [facility] ([facility]) 24 HR metoprolol succinate 50 MG Extended Release Oral Tablet Metoprolol Succinate ER 02/17/2020 12:00:00 AM EST ORAL active [facility] ([facility]) Allopurinol 300 MG Oral Tablet Allopurinol 02/17/2020 12:00:00 AM EST ORAL active MED[facility] ([facility]) pantoprazole 40 MG Delayed Release Oral Tablet Pantoprazole Sodium 02/17/2020 12:00:00 AM EST ORAL active [facility] ([facility]) Tamsulosin hydrochloride 0.4 MG Oral Capsule Tamsulosin HCL 02/17/2020 12:00:00 AM EST active [facility] ([facility]) Aspirin 81 MG Delayed Release Oral Tablet Aspirin 02/17/2020 1 2:00:00 AM EST ORAL active [facility] ([facility]) Centrum Silver 50+Men 02/17/2020 12:00:00 AM EST ORAL active [facility] ([facility]) Fish Oil 02/17/2020 12:00:00 AM EST ORAL active [facility] ([facility]) Sulfamethoxazole 800 MG / Trimethoprim 1 60 MG Oral Tablet [Bactrim] Bactrim DS 800-160 MG Bactrim DS 800-160 MG 02/13/2020 12:00:00 AM EST 1.0 {table t} suspended Bactrim DS 800-160 MG eCW1 ( [facility]) Finasteride 5 MG Oral Tablet Finasteride 5 MG 02/13/2020 12:00:00 A M EST 1.0 {tablet} active Finasteride 5 MG eCW1 ( [facility]) Sulfamethoxazole 800 MG / Trimethoprim 1 60 MG Oral Tablet [Bactrim] Bactrim DS 800-160 MG Bactrim DS 800-160 MG 02/13/2020 12:00:00 AM EST 1.0 {table t} active Bactrim DS 800-160 MG eCW1 ( [facility]) Sulfamethoxazole 800 MG / Trimethoprim 160 MG Oral Tab let 800-160 mg SULFAMETHOXAZOLE/TRIMETHOPRIM 02/13/2020 12:00:00 AM EST tablet 1 TAKE 1 TABLET BY MOUTH 1 HOUR PRIOR TO CYSTOSCOPY TAKE 1 TABLET BY MOUTH 1 HOUR PRIOR TO CYSTOSCOPY SOLD: 02/14/2020 [facility] Finasteride 5 MG Oral Tablet FINASTERIDE 02/13/2020 12:00:00 AM EST ta blet 90 TAKE ONE TABLET BY MOUTH EVERY DAY TAKE ONE TABLET BY MOUTH EVERY DAY SOLD: 07/18/2020 [facility] Sulfamethoxazole 800 MG / Trimethoprim 1 60 MG Oral Tablet [Bactrim] Bactrim DS 800-160 MG Bactrim DS 800-160 MG 02/13/2020 12:00:00 AM EST 1.0 {table t} suspended Bactrim DS 800-160 MG eCW1 ( [facility]) Sulfamethoxazole 800 MG / Trimethoprim 1 60 MG Oral Tablet [Bactrim] Bactrim DS 800-160 MG Bactrim DS 800-160 MG 02/13/2020 12:00:00 AM EST 1.0 {table t} active Bactrim DS 800-160 MG eCW1 ( [facility]) Sulfamethoxazole 800 MG / Trimethoprim 1 60 MG Oral Tablet [Bactrim] Bactrim DS 800-160 MG Bactrim DS 800-160 MG 02/13/2020 12:00:00 AM EST 1.0 {table t} suspended Bactrim DS 800-160 MG eCW1 ( [facility]) Finasteride 5 MG Oral Tablet Finasteride 5 MG 02/13/2020 12:00:00 A M EST 1.0 {tablet} active Finasteride 5 MG eCW1 ( [facility]) Finasteride 5 MG Oral Tablet FINASTERIDE 02/13/2020 12:00:00 AM EST ta blet 90 TAKE ONE TABLET BY MOUTH EVERY DAY TAKE ONE TABLET BY MOUTH EVERY DAY SOLD: 02/14/2020 [facility] Sulfamethoxazole 800 MG / Trimethoprim 1 60 MG Oral Tablet [Bactrim] Bactrim DS 800-160 MG Bactrim DS 800-160 MG 02/13/2020 12:00:00 AM EST 1.0 {table t} suspended Bactrim DS 800-160 MG eCW1 ( [facility]) Finasteride 5 MG Oral Tablet Finasteride 5 MG 02/13/2020 12:00:00 A M EST 1.0 {tablet} active Finasteride 5 MG eCW1 ( [facility]) Finasteride 5 MG Oral Tablet Finasteride 5 MG 02/13/2020 12:00:00 A M EST 1.0 {tablet} active Finasteride 5 MG eCW1 ( [facility]) Finasteride 5 MG Oral Tablet Finasteride 5 MG 02/13/2020 12:00:00 A M EST 1.0 {tablet} active Finasteride 5 MG eCW1 ( [facility]) Finasteride 5 MG Oral Tablet Finasteride 5 MG 02/13/2020 12:00:00 A M EST 1.0 {tablet} active Finasteride 5 MG eCW1 ( [facility]) Sulfamethoxazole 800 MG / Trimethoprim 1 60 MG Oral Tablet [Bactrim] Bactrim DS 800-160 MG Bactrim DS 800-160 MG 02/13/2020 12:00:00 AM EST 1.0 {table t} active Bactrim DS 800-160 MG eCW1 ( [facility]) Finasteride 5 MG Oral Tablet Finasteride 5 MG 02/13/2020 12:00:00 A M EST 1.0 {tablet} active Finasteride 5 MG eCW1 ( [facility]) Insurance Providers Payer name Policy type / Coverage type Policy ID Covered republican ID Covered republican's relationship to olivas Policy [place] Plan Information [employer]/307 [id number] SP [id number] MEDICARE [id number] SP [id number] [place]/[id number] SP [id number] [place] 302/[id number] SP [id number] [place] 010/[phone] [id number] SP [id number] O UNAVAILABLE UNA[place]ILA BLE [place] 010/510 [id number] SP [id number] Problems, Conditions, and Diagnoses Code Display Name Description Problem Type Effective Dates Data Source(s) R94.2 Pulmonary function studies abnormal Pulmonary fu nction studies abnormal Problem 12/13/2020 12:00:00 AM EDT [facility] ([facility]) Z87.891 Ex-smoker Ex-smoker Problem 12/13/2020 12:00:00 [facility] J47.9 Bronchiolectasis Bronchiolectasis Problem 12/13/2020 12 :00:00 AM EDT [facility] ([facility]) R91.8 Abnormal findings on diagnostic imaging of lung Abnormal findings on diagnostic imaging of lung Problem 12/13/2020 12:00:00 AM EDT [facility] ([facility]) 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 Problem 12/13/2020 12:00:00 AM EDT [facility] ([facility]) I47.2 Paroxysmal ventricular tachycardia Paroxysmal ve ntricular tachycardia Problem 11/02/2020 12:00:00 AM EDT [facility] ([facility]) Z71.3 Dietary management surveillance Dietary management curtis veillance Problem 09/12/2020 12:00:00 AM EDT [facility] ([facility]) B35.1 Onychomycosis Onychomycosis Problem 09/10/2020 12:00:00 AM EDT [facility] ([facility] I73.89 Peripheral vascular disease Peripheral vascular diseas e Problem 09/10/2020 12:00:00 AM EDT [facility] ([facility] M21.272 Acquired deformity of limb Acquired deformity of limb Problem 09/10/2020 12:00:00 AM EDT [facility] ([facility] M21.619 Bunion Bunion Problem 09/10/2020 12:00:00 AM ED T [facility] ([facility] Z95.0 Cardiac pacemaker in situ Cardiac pacemaker in situ Pr oblem 09/05/2020 12:00:00 AM EDT [facility] ([facility]) 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 Problem 06/06/2020 12:00:00 AM EST [facility] ([facility]) I71.2 Aneurysm of thoracic aorta Aneurysm of thoracic aorta Problem 06/06/2020 12:00:00 AM EST [facility] ([facility]) 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 Problem 06/06/2020 12:00:00 AM EST [facility] ([facility]) I11.9 Benign hypertensive heart disease Benign hyperte nsive heart disease Problem 02/22/2020 12:00:00 AM EST [facility] 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 Mul ti vessel coronary artery disease Problem 02/22/2020 12:00:00 AM EST [facility] R94.31 Electrocardiogram abnormal Electrocardiogram abnormal Problem 02/22/2020 12:00:00 AM EST [facility] ([facility]) 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 Problem 02/22/2020 12:00:00 AM EST [facility] ([facility]) I49.5 Sinus node dysfunction Sinus node dysfunction Problem 02/22/2020 12:00:00 AM EST [facility] ([facility]) I48.21 Permanent atrial fibrillation Permanent atrial fibrill ation Problem 02/22/2020 12:00:00 AM EST [facility] ([facility]) Z85.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 History of bladder cancer Problem 02/13/2020 12:00:00 AM EST eCW1 ([facility]) N40.0 Benign prostatic hypertrophy without out flow obstruction Benign prostatic hyperplasia without lower urinary tract symptoms Problem 02/12 12:00:00 AM EST eCW1 ([facility]) I25.10 [id number] Coronary artery dise ase involving [place] heart, angina presence unspecified, unspecified vessel or lesion type Problem 020 12:00:00 AM EDT eCW1 ([facility]) I71.4 [id number] Abdominal aortic aneurysm (AAA) without r upture Problem 01/23/2020 12:00:00 AM EDT eCW1 ([facility]) I67.9 [id number] Cerebral vascular disease Problem 01/23/2020 12:00:00 AM EDT eCW1 ([facility]) N40.0 [id number] Benign prostatic hyp erplasia, unspecified whether lower urinary tract symptoms present Problem 01/23/2020 12:00:00 AM EDT eCW1 ([facility]) C67.9 [id number] Malignant neoplasm of urinary bladder, un specified site Problem 01/22/2020 12:00:00 AM EDT eCW1 ([facility]) G62.9 [id number] Peripheral polyneuropathy Problem 01/22/2020 12:00:00 AM EDT eCW1 ([facility]) I10 [id number] Essential hypertension Problem 01/22/2020 12 :00:00 AM EDT eCW1 ([facility]) R13.10 [id number] Esophageal dysphagia Problem 01/22/2020 12:0 0:00 AM EDT eCW1 ([facility]) E03.8 [id number] Other specified hypothyroidism Problem 01/22/2020 12:00:00 AM EDT eCW1 ([facility]) C61 [id number] Prostate cancer Problem 01/22/2020 12:00:00 AM EDT eCW1 ([facility]) Surgeries/Procedures Procedure Description Date Indications Data Source(s) OFFICE OUTPATIENT VISIT 25 MINUTES 01/14/2021 12:00:00 AM EDT [facility] ([facility]) Chronic Care Management Services Ea Addl 20 Min 2020 12:00:00 AM EDT [facility] ([facility]) Chronic Care MGMT 20 Mins Clinical Staff Time Per Calendar M ont 12/26/2020 12:00:00 AM EDT [facility] ([facility]) DEBRIDEMENT NAIL ANY METHOD 6/> 12/14/2020 12:00:00 AM EDT [facility] ([facility] OFFICE OUTPATIENT VISIT 25 MINUTES 12/13/2020 12:00:00 AM EDT [facility] ([facility] ) OFFICE OUTPATIENT VISIT 25 MINUTES 12/07/2020 12:00:00 AM EDT [facility] ([facility]) INTERROGATION EVAL REMOTE </90 D 1/2/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 12/05 12:00:00 AM EDT [facility] ([facility]) INTERROGATION EVAL REMOTE </90 D 1/2/> LD CVDFB 2020 12:00:00 AM EDT [facility] ([facility]) Chronic Care MGMT 20 Mins Clinical Staff Time Per Calendar M [facility] 11/13/2020 12:00:00 AM EDT [facility] ([facility]) Trans Care SRV W/I 14D Of DC, Comm W/I 2 Dys Med Rec 11/09/2020 12:00:00 AM EDT [facility] ([facility] ) OFFICE OUTPATIENT VISIT 25 MINUTES 11/02/2020 12:00:00 AM EDT [facility] ([facility]) Chronic Care MGMT 20 Mins Clinical Staff Time Per Calendar M [facility] 10/25/2020 12:00:00 AM EDT [facility] ([facility]) Med: Lidocaine Jelly 2% 6ml Intravesically (Glydo) 09/24/2020 12:00:00 AM EDT eCW1 ([facility]) Chronic Care MGMT 20 Mins Clinical Staff Time Per Calendar M [facility] 09/17/2020 12:00:00 AM EDT [facility] ([facility]) ECG ROUTINE ECG W/LEAST 12 LDS W/I&R 09/12/2020 12:00: 00 AM EDT [facility] ([facility]) OFFICE OUTPATIENT VISIT 25 MINUTES 09/12/2020 12:00:00 AM EDT [facility] ([facility]) Aggarwal Cre SRV W/I 7 Days Of DC, Comm W/I 2 Dys Med Rec 09/07/2020 12:00:00 AM EDT [facility] ([facility] ) PROGRAM EVAL IMPLANTABLE IN PERSN DUAL LD PACER 2020 12:00:00 AM EDT [facility] ([facility]) Diabetic Foot Exam 09/04/2020 12:00:00 AM EDT [facility] ([facility]) DEBRIDEMENT NAIL ANY METHOD 6/> 09/04/2020 12:00:00 AM EDT [facility] ([facility] FALLS RISK ASSESSMENT DOCUMENTED 09/04/2020 12:00:00 A M EDT [facility] ([facility] OFFICE OUTPATIENT NEW 30 MINUTES 09/04/2020 12:00:00 A M EDT [facility] ([facility] OFFICE OUTPATIENT VISIT 25 MINUTES 08/21/2020 12:00:00 AM EDT [facility] ([facility]) Chronic Care MGMT 20 Mins Clinical Staff Time Per Calendar M [facility] 08/17/2020 12:00:00 AM EDT [facility] ([facility]) OFFICE OUTPATIENT VISIT 5 MINUTES 07/26/2020 12:00:00 AM EDT [facility] ([facility]) Chronic Care MGMT 20 Mins Clinical Staff Time Per Calendar M [facility] 07/16/2020 12:00:00 AM EDT [facility] ([facility]) OFFICE OUTPATIENT VISIT 5 MINUTES 07/12/2020 12:00:00 AM EDT [facility] ([facility]) OFFICE OUTPATIENT NEW 45 MINUTES 07/10/2020 12:00:00 A M EDT [facility] ([facility], ) Trans Care SRV W/I 14D Of DC, Comm W/I 2 Dys Med Rec 07/09/2020 12:00:00 AM EDT [facility] ([facility] ) Chronic Care Management Services Ea Addl 20 Min 2020 12:00:00 AM EST [facility] ([facility]) Chronic Care MGMT 20 Mins Clinical Staff Time Per Calendar M ont 06/13/2020 12:00:00 AM EST [facility] ([facility]) ECG ROUTINE ECG W/LEAST 12 LDS W/I&R 06/06/2020 12:00: 00 AM EST [facility] ([facility]) PROGRAM EVAL IMPLANTABLE IN PERSN DUAL LD PACER 2020 12:00:00 AM EST [facility] ([facility]) OFFICE OUTPATIENT VISIT 25 MINUTES 06/06/2020 12:00:00 AM EST [facility] ([facility]) OFFICE OUTPATIENT VISIT 5 MINUTES 05/03/2020 12:00:00 AM EST [facility] ([facility]) Chronic Care Management Services Ea Addl 20 Min 2020 12:00:00 AM EST [facility] ([facility]) Chronic Care MGMT 20 Mins Clinical Staff Time Per Calendar M ont 04/27/2020 12:00:00 AM EST [facility] ([facility]) ECHO TTHRC R-T 2D W/WOM-MODE COMPL SPEC&COLR DOP 03/29 12:00:00 AM EST [facility] ([facility]) Bronchospasm Evaluation 03/21/2020 12:00:00 AM EST [facility] ([facility], ) Maximum Breathing Capacity, Maximal Voluntary Ventilation 03/21/2020 12:00:00 AM EST [facility] ([facility] ) Plethysmography Determination Lung Volumes & Per Airway Resi st 03/21/2020 12:00:00 AM EST [facility] ([facility], ) DIFFUSING CAPACITY 03/21/2020 12:00:00 AM EST [facility] ([facility], ) Spirometry 03/20/2020 12:00:00 AM EST M EDENT ([facility], ) ECG ROUTINE ECG W/LEAST 12 LDS W/I&R 02/22/2020 12:00: 00 AM EST [facility] ([facility]) PROGRAM EVAL IMPLANTABLE IN PERSN DUAL LD PACER 2019 12:00:00 AM EST [facility] ([facility]) Results ID Date Data Source [id number] 01/14/2021 03:33:00 PM EDT [facility] ([facility]) Name Value Range Interpretation Code Description Data Anila rce(s) Supporting Document(s) Leukocytes [#/volume] in Blood by Automated count 6.7 x10*3/UL 4.1-10 .9 [facility] ([facility]) NOTE: CBC VERIFIED Hematocrit [Volume Fraction] of Blood by Automated count 28.2 % 3 7.0-51.0 [facility] Erythrocytes [#/volume] in Blood by Automated count 3.32 x10*6/UL 4.2 0-6.30 [facility] Hemoglobin [Mass/volume] in Blood 9.6 g/dL 12.0-18.0 [facility] MCV 84.9 fL 80.0-97.0 [facility] ([facility]) MCH 29.0 pg 26.0-32.0 [facility] ([facility]) MCHC 34.2 g/dL 31.0-38.0 [facility] ([facility]) Erythrocyte distribution width [Ratio] by Automated count 14.4 % 11.6-13.7 [facility] Platelets [#/volume] in Blood by Automated count 317 x10*3/UL 140-440 [facility] MPV 8.2 FL 7.8-11.0 [facility]) Lymph % 14.7 % 10.0-58.5 [facility] ([facility]) Lymph # 1.0 x10*3/UL 0.6-4.1 [facility] ([facility]) Neut % 80.5 % 37.0-92.0 [facility] ([facility]) Mid % 4.8 % 1.7-9.3 [facility]) Neut # 5.4 x10*3/UL 2.0-7.8 [facility] ([facility]) Mid # 0.3 x10*3/UL 0.1-0.6 [facility] ([facility]) ID Date Data Source [id number] 01/14/2021 03:33:00 PM EDT [facility] ([facility]) Name Value Range Interpretation Code Description Data Anila rce(s) Supporting Document(s) Thyrotropin [Units/volume] in Serum or Plasma by Detec tion limit <= 0.05 mIU/L 3.74 uIU/mL 0.36-3.74 [facility] ([facility] ) ID Date Data Source [id number] 01/14/2021 03:33:00 PM EDT [facility] ([facility]) Name Value Range Interpretation Code Description Data Anila rce(s) Supporting Document(s) Glucose [Mass/volume] in Serum or Plasma 132 mg/dL 74-99 [facility] ([facility]) 100-125 mg/dL PRE-DIABETES/FASTING >126 mg/dL DIABETES/FASTING Urea nitrogen [Mass/volume] in Serum or Plasma 27 mg/dL 7-18 [facility] ([facility]) Creatinine 1.8 mg/dL 0.6-1.3 [facility] ([facility]) Sodium [Moles/volume] in Serum or Plasma 143 meq/L 136-145 [facility] ([facility]) Potassium [Moles/volume] in Serum or Plasma 3.9 meq/L 3.5-5.1 [facility] ([facility]) Chloride [Moles/volume] in Serum or Plasma 105 meq/L 98-107 [facility] ([facility]) Carbon dioxide, total [Moles/volume] in Serum or Plasma 29 meq/L 21 -32 [facility] ([facility]) Calcium [Mass/volume] in Serum or Plasma 8.8 mg/dL 8.5-10.1 [facility] ([facility]) Glomerular filtration rate/1.73 sq M pre dicted among non-blacks [Volume Rate/Area] in Serum or Plasma by Creatinine-based formula (MDRD) 36 mL/min [facility] ([facility]) Glomerular filtration rate/1.73 sq M pre dicted among blacks [Volume Rate/Area] in Serum or Plasma by Creatinine-based formula (MDRD) 43 mL/min [facility] ([facility]) <content>CHRONIC KIDNEY DISEASE STAGING PER NKF</content>
<content></content>
<content>STAGE I & II GFR >= 60 NORMAL TO MILDLY DECREASED</content>
<content>STAGE III GFR 30-59 MODERATELY DECREASED</content>
<content>STAGE IV GFR 15-29 SEVERELY DECREASED</content>
<content>STAGE V GFR <15 VERY LITTLE GFR LEFT</content>
<content>ESRD GFR <15 ON CONSULTING SERVICES PROJECT MANAGER</content>
<content></content> ID Date Data Source [id number] 01/14/2021 03:33:00 PM EDT [facility] ([facility]) Name Value Range Interpretation Code Description Data Anila rce(s) Supporting Document(s) Natriuretic peptide B [Mass/volume] in Serum or Plasma 651.0 pg/mL 0.0-100.0 [facility] ([facility]) ID Date Data Source [id number] 12/07/2020 02:12:00 PM EDT [facility]) Name Value Range Interpretation Code Description Data Anila rce(s) Supporting Document(s) Ferritin [Mass/volume] in Serum or Plasma 219 ng/mL 26-388 [facility] ([facility]) <content>note:<nlbl:demographic_changed> </content>
<content></content> ID Date Data Source [id number] 12/07/2020 02:12:00 PM EDT [facility]) Name Value Range Interpretation Code Description Data Anila rce(s) Supporting Document(s) Iron (Fe) 63 ug/dL 65-175 [facility] Total Iron Binding Capacity 220 ug/dL 250-450 [facility] ([facility]) Percent Saturation 28.6 % 19.7-50.0 [facility] ([facility]) ID Date Data Source [id number] 12/07/2020 02:10:00 PM EDT [facility] ([facility]) Name Value Range Interpretation Code Description Data Anila rce(s) Supporting Document(s) Thyrotropin [Units/volume] in Serum or Plasma by Detec tion limit <= 0.05 mIU/L 5.46 uIU/mL 0.36-3.74 [facility] ([facility] ) ID Date Data Source [id number] 12/07/2020 02:10:00 PM EDT [facility] ([facility]) Name Value Range Interpretation Code Description Data Anila rce(s) Supporting Document(s) Glucose [Mass/volume] in Serum or Plasma 118 mg/dL 74-99 [facility] ([facility]) 100-125 mg/dL PRE-DIABETES/FASTING >126 mg/dL DIABETES/FASTING Urea nitrogen [Mass/volume] in Serum or Plasma 35 mg/dL 7-18 [facility] ([facility]) Creatinine 1.8 mg/dL 0.6-1.3 [facility] Sodium [Moles/volume] in Serum or Plasma 141 meq/L 136-145 [facility] ([facility]) Carbon dioxide, total [Moles/volume] in Serum or Plasma 31 meq/L 21 -32 [facility] ([facility]) Chloride [Moles/volume] in Serum or Plasma 106 meq/L 98-107 [facility] ([facility]) Potassium [Moles/volume] in Serum or Plasma 4.2 meq/L 3.5-5.1 [facility] ([facility]) Calcium [Mass/volume] in Serum or Plasma 9.2 mg/dL 8.5-10.1 [facility] ([facility]) Alkaline phosphatase isoenzyme [Units/volume] in Serum or Pl asma 105 mg/dL 46-116 [facility] ([facility]) Aspartate aminotransferase [Enzymatic activity/volume] in Serum or Plasma 20 U/L 15-37 [facility] ([facility] ) Total Bilirubin 0.4 mg/dL 0.2-1.0 [facility] Alanine aminotransferase [Enzymatic activity/volume] in Seru m or Plasma 18 U/L 12-78 [facility] ([facility]) Proteinase 3 Ab [Units/volume] in Serum 7.8 g/dL 6.4-8.2 [facility] Albumin [Mass/volume] in Serum or Plasma 2.8 g/dL 3.4-5.0 [facility] A/G Ratio 0.56 CALC 1.00-1.90 [facility] ([facility]) Glomerular filtration rate/1.73 sq M pre dicted among non-blacks [Volume Rate/Area] in Serum or Plasma by Creatinine-based formula (MDRD) 36 mL/min [facility] Glomerular filtration rate/1.73 sq M pre dicted among blacks [Volume Rate/Area] in Serum or Plasma by Creatinine-based formula (MDRD) 43 mL/min [facility] <content>CHRONIC KIDNEY DISEASE STAGING PER NKF</content>
<content></content>
<content>STAGE I & II GFR >= 60 NORMAL TO MILDLY DECREASED</content>
<content>STAGE III GFR 30-59 MODERATELY DECREASED</content>
<content>STAGE IV GFR 15-29 SEVERELY DECREASED</content>
<content>STAGE V GFR <15 VERY LITTLE GFR LEFT</content>
<content>ESRD GFR <15 ON CONSULTING SERVICES PROJECT MANAGER</content>
<content></content> ID Date Data Source [id number] 12/07/2020 02:10:00 PM EDT [facility] Name Value Range Interpretation Code Description Data Anila rce(s) Supporting Document(s) Magnesium 1.7 mg/dL 1.8-2.4 [facility] ([facility]) Natriuretic peptide B [Mass/volume] in Serum or Plasma 568.0 pg/mL 0.0-100.0 [facility] ID Date Data Source [id number] 12/07/2020 02:10:00 PM EDT [facility] ([facility]) Name Value Range Interpretation Code Description Data Anila rce(s) Supporting Document(s) Leukocytes [#/volume] in Blood by Automated count 6.7 x10*3/UL 4.1-10 .9 [facility] ([facility]) NOTE: CBC VERIFIED Erythrocytes [#/volume] in Blood by Automated count 3.37 x10*6/UL 4.2 0-6.30 [facility] ([facility]) Hematocrit [Volume Fraction] of Blood by Automated count 29.3 % 3 7.0-51.0 [facility] Hemoglobin [Mass/volume] in Blood 10.2 g/dL 12.0-18.0 [facility] ([facility]) MCV 87.0 fL 80.0-97.0 [facility]) MCH 30.2 pg 26.0-32.0 [facility] ([facility]) MCHC 34.7 g/dL 31.0-38.0 [facility] ([facility]) Platelets [#/volume] in Blood by Automated count 241 x10*3/UL 140-440 [facility] Erythrocyte distribution width [Ratio] by Automated count 14.9 % 11.6-13.7 [facility] ([facility]) MPV 8.6 FL 7.8-11.0 [facility] Lymph % 22.7 % 10.0-58.5 [facility] Mid % 6.1 % 1.7-9.3 [facility] Neut % 71.2 % 37.0-92.0 [facility] Lymph # 1.5 x10*3/UL 0.6-4.1 [facility] ([facility]) Mid # 0.4 x10*3/UL 0.1-0.6 [facility] ([facility]) Neut # 4.8 x10*3/UL 2.0-7.8 [facility] ([facility]) ID Date Data Source [id number] 12/07/2020 01:05:00 PM EDT [facility] Name Value Range Interpretation Code Description Data Anila rce(s) Supporting Document(s) Magnesium Level 1.7 [facility] ([facility] Thyroid Stimulating Hormone 5.46 ME D[facility] ([facility]) Natriuretic peptide.B prohormone N-Terminal [Mass/volu me] in Serum or Plasma 568.0 [facility] ([facility]) ID Date Data Source [id number] 12/07/2020 01:05:00 PM EDT [facility] ([facility] Name Value Range Interpretation Code Description Data Anila rce(s) Supporting Document(s) Albumin [Mass/volume] in Serum or Plasma 2.8 [facility] ([facility]) Alanine aminotransferase [Enzymatic activity/volume] in Serum or Pl asma 18 [facility] ([facility]) Carbon dioxide, total [Moles/volume] in Serum or Plasma 31 [facility] ([facility]) Calcium [Mass/volume] in Serum or Plasma 9.2 [facility] ([facility]) Chloride [Moles/volume] in Serum or Plasma 106 [facility] ([facility]) Alkaline phosphatase [Enzymatic activity/volume] in Serum or Plasma 1 05 [facility] ([facility]) Potassium [Moles/volume] in Serum or Plasma 4.2 [facility] ([facility]) Protein [Mass/volume] in Serum or Plasma 7.6 [facility] ([facility]) Urea nitrogen [Mass/volume] in Serum or Plasma 35 [facility] ([facility]) Aspartate aminotransferase [Enzymatic activity/volume] in Serum or Plasma 20 [facility] ([facility]) Sodium 141 [facility] Creatinine For GFR 1.8 [facility] ([facility] Glucose 118 74-99 [facility] ID Date Data Source [id number] 12/07/2020 01:05:00 PM EDT [facility] Name Value Range Interpretation Code Description Data Anila rce(s) Supporting Document(s) Red Blood Count 3.37 4.20-6.30 [facility] ([facility] White Blood Count 6.7 4.1-10.9 [facility] ([facility]) Hemoglobin 10.2 12.0-18.0 [facility] ([facility]) Platelets 241 140-440 [facility] Hematocrit 29.3 37.0-51.0 [facility] ([facility]) ID Date Data Source [id number] 11/30/2020 04:10:00 PM EDT [facility] Name Value Range Interpretation Code Description Data Anila rce(s) Supporting Document(s) Appearance, Urine RFX Laboratory test result [facility] Color, Urine RFX Laboratory test [facility] PH,Urine RFX 8.0 units 5.0-9.0 [facility] Specific Hiram Ur Auto RFX 1.021 1.002-1.035 [facility] Protein, Urine Auto RFX Laboratory test result [facility] Glucose, Urine (Ua) Auto RFX Laboratory test result [facility] Ketone, Urine Auto RFX Laboratory test result [facility] Urobilinogen, Urine Auto RFX 0.2 mg/dL 0.0-2.0 [facility] ([facility] Nitrite, Urine Auto RFX Laboratory test result [facility] Bilirubin, Urine Auto RFX Laboratory test result [facility] ([facility]) Leukocyte Esterase Ur Auto RFX Laboratory test result [facility] Blood, Urine Blood RFX Laboratory test result [facility] WBC, Urine Auto RFX 0 /HPF 0-3 [facility] ([facility]) RBC, Urine Auto RFX 4 /HPF 0-3 [facility] Bacteria, Urine Auto RFX Laboratory test result [facility] ([facility]) Hyaline Cast, Urine Auto RFX 0 /LPF 0-1 M [facility]ENT ([facility] Squam Epithelial Cell Ur Aurfx 0 /HPF 0-6 [facility] ([facility]) ID Date Data Source [id number] 11/30/2020 04:10:00 PM EDT [facility] Name Value Range Interpretation Code Description Data Anila rce(s) Supporting Document(s) Influenza A Amplification Laboratory test result [facility] Negative results do not preclude influen za or RSV virus infection and should not be used as the sole basis for treatment or other patient management decisions. Influenza B Amplification Laboratory test result [facility] Negative results do not preclude influen za or RSV virus infection and should not be used as the sole basis for treatment or other patient management decisions. RSV Amplification Laboratory test result [facility] Negative results do not preclude influen za or RSV virus infection and should not be used as the sole basis for treatment or other patient management decisions. Laboratory test finding (navigational concept) Laboratory test result [facility] ([facility] A false negative result may occur if a s pecimen is improperly collected, transported or handled. False [...] pathogens. DISCLAIMER: Testing was performed using the [employer] SARS-CoV-2 test. This test was developed and its performance characteristics determined by [employer]. This test has not been FDA cleared [...] the authorization is terminated or revoked sooner. ID Date Data Source [id number] 11/30/2020 04:10:00 PM EDT [facility] Name Value Range Interpretation Code Description Data Anila rce(s) Supporting Document(s) SARS coronavirus 2 RNA [Presence] in Res piratory specimen by HAIR with probe detection NEGATIVE [facility] This lab was ordered by [facility] a nd reported by [facility]. ID Date Data Source [id number] 11/30/2020 04:10:00 PM EDT [facility] Name Value Range Interpretation Code Description Data Anila rce(s) Supporting Document(s) SARS-CoV-2 (COVID 19) NEGATIVE - SARS-CoV-2 (COVID19) [facility] This lab was ordered by [facility] a nd reported by [facility]. ID Date Data Source [id number] 11/30/2020 11:09:00 AM EDT [facility] ([facility]) Name Value Range Interpretation Code Description Data Anila rce(s) Supporting Document(s) Laboratory test finding (navigational concept) 141 meq/L 136-145 [facility] ([facility]) Laboratory test finding (navigational concept) 33.0 % 38.0-51.0 [facility] ([facility]) Laboratory test finding (navigational concept) 108 mg/dL 70-105 [facility] ([facility]) Laboratory test finding (navigational concept) 4.6 mg/dL 4.5-5.3 [facility] ([facility]) Laboratory test finding (navigational concept) 4.7 meq/L 3.5-5.1 [facility] ([facility]) Laboratory test finding (navigational concept) 28.0 MM/L 23.0-27.0 [facility] ([facility]) Laboratory test finding (navigational concept) 101 meq/L 98-109 [facility] ([facility]) Laboratory test finding (navigational concept) 1.4 mg/dL 0.6-1.3 [facility] ([facility]) Laboratory test finding (navigational concept) 28 mg/dL 8-26 [facility] ([facility]) ID Date Data Source [id number] 11/30/2020 10:52:00 AM EDT [facility] ([facility] Name Value Range Interpretation Code Description Data Anila rce(s) Supporting Document(s) White Blood Count 9.2 10 4.0-10.0 [facility] ([facility]) Hemoglobin 11.1 g/dL 13.5-17.5 [facility] Red Blood Count 3.75 10 4.30-6.10 [facility] ([facility]) Hematocrit 34.8 % 42.0-52.0 [facility] Mean Corpuscular Volume 92.8 fl 80.0-96.0 [facility] ([facility]) Mean Corpuscular Hemoglobin 29.6 pg 27.0-33.0 [facility] ([facility]) Mean Corpuscular HGB Conc 31.9 g/dL 32.0-36.5 [facility] ([facility]) Platelet Count, Automated 249 10 150-450 [facility] ([facility]) Red Cell Distribution Width 15.8 % 11.5-14.5 [facility] ([facility]) Lymph % 16.9 % 24.0-44.0 [facility]) Neutrophils % 72.3 % 36.0-66.0 [facility] Eos % 2.8 % 0.0-3.0 [facility] Alcorn % 7.2 % 2.0-8.0 [facility] Baso % 0.5 % 0.0-1.0 [facility] Immature Granulocyte % 0.3 % 0-3.0 [facility] ([facility]) Nucleated Red Blood Cell % 0.0 % 0-0 [facility] E[facility] ([facility]) Neutrophils # 6.7 10 1.5-8.5 [facility]) Lymph # 1.6 10 1.5-5.0 [facility] Alcorn # 0.7 10 0.0-0.8 [facility] Eos # 0.3 10 0.0-0.5 [facility] Baso # 0.1 10 0.0-0.2 [facility] ID Date Data Source [id number] 11/30/2020 10:52:00 AM EDT [facility] ([facility]) Name Value Range Interpretation Code Description Data Anila rce(s) Supporting Document(s) Ast/Sgot 34 U/L 7-37 [facility] Alt/SGPT 27 U/L 12-78 [facility] ([facility]) Alkaline Phosphatase 139 U/L 45-117 [facility] ([facility]) Bilirubin,Total 0.6 mg/dL 0.2-1.0 [facility] ([facility]) Bilirubin,Direct 0.2 mg/dL 0.0-0.2 [facility] ([facility]) Albumin 2.7 GM/DL 3.2-5.2 [facility] ([facility]) Total Protein 7.8 GM/DL 6.4-8.2 [facility] ([facility]) Albumin/Globulin Ratio 0.5 [facility] ([facility]) ID Date Data Source [id number] 11/30/2020 10:52:00 AM EDT [facility] ([facility]) Name Value Range Interpretation Code Description Data Anila rce(s) Supporting Document(s) Lipoprotein lipase [Enzymatic activity/volume] in Serum or P lasma 172 U/L 73-393 [facility] ([facility] <content>note:<nlbl:demographic_changed></content>
<content>note:<nlbl:demog raphic_changed></content>
<content>note:<nlbl:demographic_changed></content>
<content></content> Natriuretic peptide.B prohormone N-Terminal [Mass/volu me] in Serum or Plasma 1331 pg/mL [facility] ([facility] <content>note:<nlbl:demographic_changed></content>
<content>note:<nlbl:demog raphic_changed></content>
<content>note:<nlbl:demographic_changed></content>
<content></content> ID Date Data Source [id number] 11/02/2020 09:17:00 AM EDT [facility] Name Value Range Interpretation Code Description Data Anila rce(s) Supporting Document(s) Magnesium [Mass/volume] in Serum or Plasma 2.2 mg/dL 1.8-2.4 [facility] ([facility]) <content>note:<nlbl:demographic_changed> </content>
<content></content> ID Date Data Source [id number] 11/02/2020 09:17:00 AM EDT [facility] [place] Name Value Range Interpretation Code Description Data Anila rce(s) Supporting Document(s) Glucose, Fasting 114 mg/dL 70-100 [facility] ([facility]) Blood Urea Nitrogen 21 mg/dL 7-18 [facility] ([facility] Glomerular Filtration Rate 58.7 [facility] ([facility]) <content>Units are mL/min/1.73 m2</content>
<content></content>
<content>Chronic Kidney Disease Staging per NKF:</content>
<content></content>
<content>Stage I & II GFR >=60 Normal to Mildly Decreased</content>
<content>Stage III GFR 30- 59 Moderately Decreased</content>
<content>Stage IV GFR 15-29 Severely Decreased</content>
<content>Stage V GFR <15 Very Little GFR Left</content>
<content>ESRD GFR <15 on CONSULTING SERVICES PROJECT MANAGER</content>
<content></content> Creatinine For GFR 1.24 mg/dL 0.70-1.30 [facility] ([facility]) Sodium Level 143 meq/L 136-145 [facility] ([facility]) Potassium Serum 5.1 meq/L 3.5-5.1 [facility] ([facility]) Testing was performed on an icteric spec imen. Testing was performed on a SLIGHTLY hemolyzed specimen. Suggest recollection of specimen for more accurate test results. Chloride Level 108 meq/L 98-107 [facility] Carbon Dioxide Level 28 meq/L 21-32 [facility] ([facility] Anion Gap 7 meq/L 8-16 [facility] Calcium Level 9.5 mg/dL 8.8-10.2 [facility] Alt/SGPT 28 U/L 12-78 [facility] Ast/Sgot 43 U/L 7-37 [facility] Bilirubin,Total 0.5 mg/dL 0.2-1.0 [facility] ([facility]) Alkaline Phosphatase 138 U/L 45-117 [facility] ([facility] Total Protein 7.9 GM/DL 6.4-8.2 [facility] ([facility]) Albumin/Globulin Ratio 0.7 [facility] ([facility]) Albumin 3.2 GM/DL 3.2-5.2 [facility] ID Date Data Source [id number] 10/19/2020 11:11:00 PM EDT [facility] Name Value Range Interpretation Code Description Data Anila rce(s) Supporting Document(s) SARS coronavirus 2 RNA [Presence] in Res piratory specimen by HAIR with probe detection NEGATIVE [facility] This lab was ordered by [facility] a nd reported by [facility]. ID Date Data Source [id number] 09/27/2020 03:27:00 PM EDT [facility] ([facility]) Name Value Range Interpretation Code Description Data Anila rce(s) Supporting Document(s) Bacteria identified in Wound shallow by Aerobe culture Laborator y test result [facility] ([facility]) <content>FULL REPORT IN LAB NOTES ([facility] a nd [facility]).</content>
<content></content>
<content>ORGANISM 1: STAPHYLOCOCCUS SP COAG NEG</content>
<content></content>
<content> QUANTITY OF GROWTH FEW</content>
<content></content>
<content></content>
<content>ORGAN ISM 1: STAPHYLOCOCCUS SP COAG NEG</content>
<content></content>
<content>STAPHYLOCOCCUS SP COAG NEG: REACTION</content>
<content>ICR (INDUCIBLE CC RESISTANCE) IV ICR TEST RESULT</content>
<content>TETRACYCLINE PO 250 mg qid 2 S</content>
<content>PENICILLIN G IV 1 mu q6H >=0.5 R</content>
<content>PENICILLIN G IV 1 mu q6h >=0.5 R</content>
<content>PENICILLIN G PO 250mg q6h fasting >=0.5 R</content>
<content> TRIMETHOPRIM/SULFAMETHOXAZOLE IV 160mg TMP & 800mg SMXq6h 160 R</content>
<content>TRIMETHOPRIM/SULFAMETHOXAZOLE PO Bactrim DS Bid 160 R</content>
<content>ERYTHROMYCIN IV 500mg q6h >=8 R</content>
<content>ERYTHROMYCIN PO 500mg q6h >=8 R</content>
<content>GENTAMICIN IV 80mg q8h 8 I</content>
<content>CLINDAMYCIN IV 600mg q6h >=4 R</content>
<content> CLINDAMYCIN PO 150mg q6h >=4 R</content>
<content>OXACILLIN IV 500mg q6h >=4 R</content>
<content>VANCOMYCIN IV 500mg q8h 1 S</content>
<content>LINEZOLID (ZYVOX) IV 600MG Q12HR 2 S</content>
<content>LINEZOLID (ZYVOX) PO 600MG Q12HR 2 S</content>
<content>An isolate with a (+) POSITIVE ICR test is considered</content>
<content>CLINDAMYCIN RESISTANT; however, clindamycin may still</content>
<content>be effective in some patients.</content>
<content>An isolate with a (-) NEGATIVE ICR test is considered</content>
<content>CLIDAMYCIN SENSITIVE.</content>
<content></content> ID Date Data Source [id number] 09/27/2020 02:48:00 PM EDT [facility] ([facility] Name Value Range Interpretation Code Description Data Anila rce(s) Supporting Document(s) C reactive protein [Mass/volume] in Serum or Plasma by High sensitivity method 0.46 mg/dL 0.00-0.30 [facility] ([facility] ) <content>note:<nlbl:demographic_changed> </content>
<content></content> ID Date Data Source [id number] 09/27/2020 02:48:00 PM EDT [facility] Name Value Range Interpretation Code Description Data Anila rce(s) Supporting Document(s) Urea nitrogen [Mass/volume] in Serum or Plasma 35 mg/dL 7-18 [facility] ([facility]) NOTE: BUN,CREAT,ALB,T.PROTEIN VERIFIED Glucose [Mass/volume] in Serum or Plasma 127 mg/dL 74-99 [facility] ([facility]) 100-125 mg/dL PRE-DIABETES/FASTING >126 mg/dL DIABETES/FASTING Creatinine 1.4 mg/dL 0.6-1.3 [facility] Sodium [Moles/volume] in Serum or Plasma 140 meq/L 136-145 [facility] ([facility]) Potassium [Moles/volume] in Serum or Plasma 3.7 meq/L 3.5-5.1 [facility] ([facility]) Calcium [Mass/volume] in Serum or Plasma 9.3 mg/dL 8.5-10.1 [facility] ([facility]) Carbon dioxide, total [Moles/volume] in Serum or Plasma 35 meq/L 21 -32 [facility] ([facility]) Chloride [Moles/volume] in Serum or Plasma 102 meq/L 98-107 [facility] ([facility]) Alkaline phosphatase isoenzyme [Units/volume] in Serum or Pl asma 125 mg/dL 46-116 [facility] ([facility]) NOTE: RESULT VERIFIED. Total Bilirubin 0.6 mg/dL 0.2-1.0 [facility] ([facility]) Albumin [Mass/volume] in Serum or Plasma 3.2 g/dL 3.4-5.0 [facility] ([facility]) Aspartate aminotransferase [Enzymatic activity/volume] in Serum or Plasma 32 U/L 15-37 [facility] ([facility] ) Alanine aminotransferase [Enzymatic activity/volume] in Seru m or Plasma 21 U/L 12-78 [facility] ([facility]) Proteinase 3 Ab [Units/volume] in Serum 8.4 g/dL 6.4-8.2 [facility] ([facility]) Glomerular filtration rate/1.73 sq M pre dicted among non-blacks [Volume Rate/Area] in Serum or Plasma by Creatinine-based formula (MDRD) 48 mL/min [facility] ([facility] A/G Ratio 0.62 CALC 1.00-1.90 [facility] Glomerular filtration rate/1.73 sq M pre dicted among blacks [Volume Rate/Area] in Serum or Plasma by Creatinine-based formula (MDRD) 58 mL/min [facility] ([facility] <content>CHRONIC KIDNEY DISEASE STAGING PER NKF</content>
<content></content>
<content>STAGE I & II GFR >= 60 NORMAL TO MILDLY DECREASED</content>
<content>STAGE III GFR 30-59 MODERATELY DECREASED</content>
<content>STAGE IV GFR 15-29 SEVERELY DECREASED</content>
<content>STAGE V GFR <15 VERY LITTLE GFR LEFT</content>
<content>ESRD GFR <15 ON CONSULTING SERVICES PROJECT MANAGER</content>
<content></content> ID Date Data Source [id number] 09/27/2020 02:48:00 PM EDT [facility] ([facility]) Name Value Range Interpretation Code Description Data Anila rce(s) Supporting Document(s) Leukocytes [#/volume] in Blood by Automated count 6.5 x10*3/UL 4.1-10 .9 [facility] ([facility]) NOTE: CBC VERIFIED Hematocrit [Volume Fraction] of Blood by Automated count 34.1 % 3 7.0-51.0 [facility] ([facility]) Hemoglobin [Mass/volume] in Blood 11.6 g/dL 12.0-18.0 [facility] ([facility]) Erythrocytes [#/volume] in Blood by Automated count 3.88 x10*6/UL 4.2 0-6.30 [facility] ([facility]) MCV 87.9 fL 80.0-97.0 [facility] MCH 30.0 pg 26.0-32.0 [facility] Erythrocyte distribution width [Ratio] by Automated count 14.5 % 11.6-13.7 [facility] ([facility]) Platelets [#/volume] in Blood by Automated count 241 x10*3/UL 140-440 [facility] ([facility]) MCHC 34.1 g/dL 31.0-38.0 [facility]) MPV 8.3 FL 7.8-11.0 [facility]) Mid % 7.8 % 1.7-9.3 [facility] Lymph % 40.0 % 10.0-58.5 [facility] Mid # 0.5 x10*3/UL 0.1-0.6 [facility] ([facility]) Neut % 52.2 % 37.0-92.0 [facility] Lymph # 2.6 x10*3/UL 0.6-4.1 [facility] ([facility]) Neut # 3.4 x10*3/UL 2.0-7.8 [facility] ([facility]) ID Date Data Source NON PATROL COMMUNITY SERVICE OFFICER CYTOLOGY REQ FOR SERVI 09/24/2020 12:00:00 AM EDT eC W1 ([facility]) Name Value Range Interpretation Code Description Data Anila rce(s) Supporting Document(s) URINE eCW1 ([facility]) ID Date Data Source [id number] 09/20/2020 03:43:00 PM EDT [facility] ([facility]) Name Value Range Interpretation Code Description Data Anila rce(s) Supporting Document(s) Abscess Culture Laboratory test result [facility] ([facility]) Rx Doxycycline Gram Stain Laboratory test result [facility] ([facility]) Rx Doxycycline ID Date Data Source [id number] 09/07/2020 11:58:00 AM EDT [facility] ([facility] Name Value Range Interpretation Code Description Data Anila rce(s) Supporting Document(s) Glucose [Mass/volume] in Serum or Plasma 109 mg/dL 74-99 [facility] ([facility]) 100-125 mg/dL PRE-DIABETES/FASTING >126 mg/dL DIABETES/FASTING Urea nitrogen [Mass/volume] in Serum or Plasma 14 mg/dL 7-18 [facility] ([facility] Creatinine 1.0 mg/dL 0.6-1.3 [facility] ([facility] Potassium [Moles/volume] in Serum or Plasma 4.2 meq/L 3.5-5.1 [facility] ([facility] Sodium [Moles/volume] in Serum or Plasma 141 meq/L 136-145 [facility] ([facility] Chloride [Moles/volume] in Serum or Plasma 104 meq/L 98-107 [facility] ([facility] Carbon dioxide, total [Moles/volume] in Serum or Plasma 31 meq/L 21 -32 [facility] ([facility] Calcium [Mass/volume] in Serum or Plasma 8.7 mg/dL 8.5-10.1 [facility] ([facility] Glomerular filtration rate/1.73 sq M pre dicted among non-blacks [Volume Rate/Area] in Serum or Plasma by Creatinine-based formula (MDRD) Laboratory test result [facility] ([facility] Glomerular filtration rate/1.73 sq M pre dicted among blacks [Volume Rate/Area] in Serum or Plasma by Creatinine-based formula (MDRD) Laboratory test result [facility] ([facility]) <content>CHRONIC KIDNEY DISEASE STAGING PER NKF</content>
<content></content>
<content>STAGE I & II GFR >= 60 NORMAL TO MILDLY DECREASED</content>
<content>STAGE III GFR 30-59 MODERATELY DECREASED</content>
<content>STAGE IV GFR 15-29 SEVERELY DECREASED</content>
<content>STAGE V GFR <15 VERY LITTLE GFR LEFT</content>
<content>ESRD GFR <15 ON CONSULTING SERVICES PROJECT MANAGER</content>
<content></content> ID Date Data Source [id number] 09/07/2020 11:58:00 AM EDT [facility] ([facility] Name Value Range Interpretation Code Description Data Anila rce(s) Supporting Document(s) Hemoglobin [Mass/volume] in Blood 10.5 g/dL 12.0-18.0 [facility] ([facility] NOTE: RESULT VERIFIED. Erythrocytes [#/volume] in Blood by Automated count 3.53 x10*6/UL 4.2 0-6.30 [facility] ([facility] Leukocytes [#/volume] in Blood by Automated count 7.9 x10*3/UL 4.1-10 .9 [facility] ([facility] MCV 87.3 fL 80.0-97.0 [facility] ([facility]) MCH 29.7 pg 26.0-32.0 [facility] ([facility]) Hematocrit [Volume Fraction] of Blood by Automated count 30.8 % 3 7.0-51.0 [facility] ([facility] MCHC 34.1 g/dL 31.0-38.0 [facility] ([facility]) Erythrocyte distribution width [Ratio] by Automated count 13.8 % 11.6-13.7 [facility] ([facility] Platelets [#/volume] in Blood by Automated count 307 x10*3/UL 140-440 [facility] MPV 8.3 FL 7.8-11.0 [facility] ([facility]) Lymph % 13.9 % 10.0-58.5 [facility] ([facility]) Mid % 4.5 % 1.7-9.3 [facility] Lymph # 1.1 x10*3/UL 0.6-4.1 [facility] ([facility]) Neut % 81.6 % 37.0-92.0 [facility] Mid # 0.3 x10*3/UL 0.1-0.6 [facility] ([facility]) Neut # 6.5 x10*3/UL 2.0-7.8 [facility] ([facility]) ID Date Data Source [id number] 09/02/2020 03:31:00 PM EDT [facility] ([facility] Name Value Range Interpretation Code Description Data Anila rce(s) Supporting Document(s) Albumin [Mass/volume] in Serum or Plasma 2.4 [facility] ([facility]) Calcium [Mass/volume] in Serum or Plasma 8.7 [facility] ([facility]) Alanine aminotransferase [Enzymatic activity/volume] in Serum or Pl asma 52 [facility] ([facility]) Carbon dioxide, total [Moles/volume] in Serum or Plasma 27 [facility] ([facility]) Chloride [Moles/volume] in Serum or Plasma 107 [facility] ([facility]) Protein [Mass/volume] in Serum or Plasma 6.4 [facility] ([facility]) Alkaline phosphatase [Enzymatic activity/volume] in Serum or Plasma 2 11 [facility] ([facility]) Potassium [Moles/volume] in Serum or Plasma 3.9 [facility] ([facility]) Aspartate aminotransferase [Enzymatic activity/volume] in Serum or Plasma 83 [facility] ([facility]) Sodium 140 [facility] Urea nitrogen [Mass/volume] in Serum or Plasma 41 [facility] ([facility]) Creatinine For GFR 1.45 [facility] ([facility] Glucose 122 83-110 [facility] ID Date Data Source [id number] 09/02/2020 03:31:00 PM EDT [facility] ([facility] Name Value Range Interpretation Code Description Data Anila rce(s) Supporting Document(s) Red Blood Count 3.25 4.00-5.40 [facility] ([facility]) White Blood Count 9.2 5.0-10.0 [facility] ([facility]) Platelets 159 172-450 [facility] Hematocrit 30.5 [facility] ([facility]) Hemoglobin 9.7 [facility] ([facility]) ID Date Data Source [id number] 08/29/2020 11:41:00 AM EDT [facility] Name Value Range Interpretation Code Description Data Anila rce(s) Supporting Document(s) Respiratory Panel Laboratory test result [facility] This respiratory PCR panel detects Influ artemio A H1, H3 and 2009 H1 viruses, Influenza B virus, Resp iratory Syncytial Virus, Human metapneumovirus, Parainfluenza virus 1, 2, 3 and 4, Adenovirus, Rhinovirus/Enterovirus, Coronavirus HKU1, NL63, OC43, 229E and SARS-CoV-2 (COVID 19), Bordetella pertussis, Bordetella parapertussis, Mycoplasma pneumoniae and Chlamydia pneumoniae. NEGATIVE by MULTIPLEXED NUCLEIC ACID PCR SARS-CoV-2 (COVID 19) NEGATIVE - SARS-CoV-2 (COVID19) ID Date Data Source [id number] 08/29/2020 11:41:00 AM EDT [facility] Name Value Range Interpretation Code Description Data Anila rce(s) Supporting Document(s) SARS-CoV-2 (COVID 19) NEGATIVE - SARS-CoV-2 (COVID19) [facility] This lab was ordered by [facility] a nd reported by [facility]. ID Date Data Source [id number] 08/29/2020 09:52:00 AM EDT [facility] Name Value Range Interpretation Code Description Data Anila rce(s) Supporting Document(s) CPK Creatine Phosphokinase 39 U/L 39-308 [facility] ([facility]) MB/CK Relative Index 2.56 [facility] ([facility]) <content>DIAGNOSIS CRITERIA</content>
<content>MMB ng/ml Relative Index (RI)</content>
<content>NON-AMI < or = 5 N/A</content>
<content>CANTU ZONE > 5 < or = 4</content>
<content>AMI > 5 > 4</content>
<content></content> CK-MB Value Mass Laboratory test result [facility] ([facility]) Troponin I [facility] <content>Troponin I Reference Interval f or Siemens Peever LOCI:</content>
<content></content>
<content>99th Percentile= 0.00-0.045 ng/ml</content>
<content></content>
<content>Risk Stratification:</content>
<content><= 0.10 ng/ml Decreased Risk for Adverse Clinical</content>
<content>Events.</content>
<content>0.10-1.50 ng/ml Increased Risk for Adverse Clinical</content>
<content>Events. Evaluation of additional</content>
<content>criterion and/or repeat testing in 2-6</content>
<content>hours is suggested to rule out myocardial</content>
<content>damage.</content>
<content>>= 1.50 ng/ml Indicative of Myocardial Injury.</content>
<content></content> ID Date Data Source [id number] 08/29/2020 09:52:00 AM EDT [facility] ([facility]) Name Value Range Interpretation Code Description Data Anila rce(s) Supporting Document(s) Ast/Sgot 32 U/L 7-37 [facility] ([facility]) Alt/SGPT 25 U/L 12-78 [facility] ([facility]) Alkaline Phosphatase 154 U/L 45-117 [facility] ([facility]) Total Protein 7.3 GM/DL 6.4-8.2 [facility] ([facility]) Bilirubin,Total 1.5 mg/dL 0.2-1.0 [facility] ([facility]) Bilirubin,Direct 0.6 mg/dL 0.0-0.2 [facility] ([facility]) Albumin/Globulin Ratio 0.8 [facility] ([facility]) Albumin 3.2 GM/DL 3.2-5.2 [facility] ([facility]) ID Date Data Source [id number] 08/29/2020 09:52:00 AM EDT [facility] ([facility]) Name Value Range Interpretation Code Description Data Anila rce(s) Supporting Document(s) Glucose, Fasting 110 mg/dL 70-100 [facility] ([facility]) Blood Urea Nitrogen 35 mg/dL 7-18 [facility] ([facility]) Glomerular Filtration Rate 49.0 [facility] E[facility] ([facility]) <content>Units are mL/min/1.73 m2</content>
<content></content>
<content>Chronic Kidney Disease Staging per NKF:</content>
<content></content>
<content>Stage I & II GFR >=60 Normal to Mildly Decreased</content>
<content>Stage III GFR 30- 59 Moderately Decreased</content>
<content>Stage IV GFR 15-29 Severely Decreased</content>
<content>Stage V GFR <15 Very Little GFR Left</content>
<content>ESRD GFR <15 on CONSULTING SERVICES PROJECT MANAGER</content>
<content></content> Creatinine For GFR 1.45 mg/dL 0.70-1.30 [facility] ([facility]) Potassium Serum 4.1 meq/L 3.5-5.1 [facility] ([facility]) Chloride Level 107 meq/L 98-107 [facility] ([facility]) Sodium Level 142 meq/L 136-145 [facility] ([facility]) Anion Gap 6 meq/L 8-16 [facility] ([facility]) Carbon Dioxide Level 29 meq/L 21-32 [facility] Calcium Level 8.4 mg/dL 8.8-10.2 [facility] ([facility]) ID Date Data Source [id number] 08/21/2020 02:33:00 PM EDT [facility] ([facility]) Name Value Range Interpretation Code Description Data Anila rce(s) Supporting Document(s) Glucose [Mass/volume] in Serum or Plasma 109 mg/dL 74-99 [facility] ([facility]) 100-125 mg/dL PRE-DIABETES/FASTING >126 mg/dL DIABETES/FASTING Urea nitrogen [Mass/volume] in Serum or Plasma 27 mg/dL 7-18 [facility] ([facility]) Potassium [Moles/volume] in Serum or Plasma 4.7 meq/L 3.5-5.1 [facility] ([facility]) Creatinine 1.3 mg/dL 0.6-1.3 [facility] ([facility]) Sodium [Moles/volume] in Serum or Plasma 143 meq/L 136-145 [facility] ([facility]) Calcium [Mass/volume] in Serum or Plasma 9.0 mg/dL 8.5-10.1 [facility] ([facility]) Chloride [Moles/volume] in Serum or Plasma 106 meq/L 98-107 [facility] ([facility]) Carbon dioxide, total [Moles/volume] in Serum or Plasma 30 meq/L 21 -32 [facility] ([facility]) Glomerular filtration rate/1.73 sq M pre dicted among non-blacks [Volume Rate/Area] in Serum or Plasma by Creatinine-based formula (MDRD) 52 mL/min [facility] Glomerular filtration rate/1.73 sq M pre dicted among blacks [Volume Rate/Area] in Serum or Plasma by Creatinine-based formula (MDRD) Laboratory test result [facility] <content>CHRONIC KIDNEY DISEASE STAGING PER NKF</content>
<content></content>
<content>STAGE I & II GFR >= 60 NORMAL TO MILDLY DECREASED</content>
<content>STAGE III GFR 30-59 MODERATELY DECREASED</content>
<content>STAGE IV GFR 15-29 SEVERELY DECREASED</content>
<content>STAGE V GFR <15 VERY LITTLE GFR LEFT</content>
<content>ESRD GFR <15 ON CONSULTING SERVICES PROJECT MANAGER</content>
<content></content> ID Date Data Source [id number] 08/21/2020 02:33:00 PM EDT [facility] ([facility]) Name Value Range Interpretation Code Description Data Anila rce(s) Supporting Document(s) Natriuretic peptide B [Mass/volume] in Serum or Plasma 706.0 pg/mL 0.0-100.0 [facility] ([facility]) ID Date Data Source [id number] 08/21/2020 02:33:00 PM EDT [facility] ([facility]) Name Value Range Interpretation Code Description Data Anila rce(s) Supporting Document(s) Leukocytes [#/volume] in Blood by Automated count 5.5 x10*3/UL 4.1-10 .9 [facility] ([facility]) NOTE: CBC VERIFIED Erythrocytes [#/volume] in Blood by Automated count 3.93 x10*6/UL 4.2 0-6.30 [facility] ([facility]) Hematocrit [Volume Fraction] of Blood by Automated count 34.8 % 3 7.0-51.0 [facility] ([facility]) Hemoglobin [Mass/volume] in Blood 11.8 g/dL 12.0-18.0 [facility] ([facility]) MCV 88.4 fL 80.0-97.0 [facility] ([facility]) MCH 30.2 pg 26.0-32.0 [facility] ([facility]) MCHC 34.1 g/dL 31.0-38.0 [facility] ([facility]) Platelets [#/volume] in Blood by Automated count 170 x10*3/UL 140-440 [facility] ([facility]) MPV 8.8 FL 7.8-11.0 [facility] ([facility]) Erythrocyte distribution width [Ratio] by Automated count 13.9 % 11.6-13.7 [facility] ([facility]) Neut % 63.1 % 37.0-92.0 [facility] Lymph % 29.2 % 10.0-58.5 [facility]) Mid % 7.7 % 1.7-9.3 [facility]) Mid # 0.5 x10*3/UL 0.1-0.6 [facility] ([facility]) Lymph # 1.6 x10*3/UL 0.6-4.1 [facility] ([facility]) Neut # 3.4 x10*3/UL 2.0-7.8 [facility] ([facility]) ID Date Data Source [id number] 07/18/2020 09:55:00 AM EDT [facility] Name Value Range Interpretation Code Description Data Anila rce(s) Supporting Document(s) SARS coronavirus 2 RNA [Presence] in Res piratory specimen by HAIR with probe detection NEGATIVE [facility] This lab was ordered by [facility] a nd reported by [facility]. ID Date Data Source URINE CULTURE 07/17/2020 12:00:00 AM EDT eCW1 ([facility]) Name Value Range Interpretation Code Description Data Anila rce(s) Supporting Document(s) URINE CULTURE eCW1 ([facility]) ID Date Data Source UA URINALYSIS 07/17/2020 12:00:00 AM EDT eCW1 ([facility]) Name Value Range Interpretation Code Description Data Anila rce(s) Supporting Document(s) UA URINALYSIS eCW1 ([facility]) ID Date Data Source [id number] 06/29/2020 09:44:00 PM EDT [facility] Name Value Range Interpretation Code Description Data Anila rce(s) Supporting Document(s) SARS coronavirus 2 RNA [Presence] in Res piratory specimen by HAIR with probe detection NEGATIVE [facility] This lab was ordered by [facility] a nd reported by [facility]. ID Date Data Source [id number] 03/20/2020 10:44:00 AM EST [facility] ([facility], ) Name Value Range Interpretation Code Description Data Anila rce(s) Supporting Document(s) FVC-Pred 4.06 L [facility] ([facility], ) PDFReport Laboratory test result [facility] ([facility], ) FVC-LLN 3.07 L [facility] ([facility], ) Fev1-Pred 2.83 L [facility] ([facility], ) FVC-%Pred-Pre 77 L [facility] ([facility], ) FVC-Pre 3.15 L [facility] ([facility]) Fev1-Pre 2.22 L [facility] ([facility], ) Fev1-%Pred-Pre 78 L [facility] ([facility], ) Fev1-LLN 2.00 L [facility] ([facility], ) Fev6-Pre 3.15 L [facility] ([facility], ) Fev6-Pred 3.77 L [facility] ([facility]) Ard4ohg-Jneb 70 % [facility] ([facility]) Fev6-%Pred-Pre 83 L [facility] ([facility], ) Fev6-LLN 2.81 L [facility] ([facility], ) Ngg8smd-Vlo 71 % [facility] ([facility]) Rjm9kfr-AXT 60 % [facility] ([facility]) Ixg1daz-%Pred-Pre 100 % [facility] ([facility]) Nax5aar-Xps 100 % [facility] ([facility]) Bkm2qma-%Pred-Pre 107 % [facility] ([facility]) Vjr9vdk-Vmwu 93 % [facility] ([facility]) FEFMax-%Pred-Pre 88 L/E/sec [facility] ([facility]) FEFMax-Pred 6.75 L/E/sec [facility] ([facility], ) FEFMax-Pre 5.97 L/E/sec [facility] ([facility]) FEFMax-LLN 4.29 L/E/sec [facility] ([facility]) Nyv1679-Wgpn 1.81 L/E/sec [facility] ([facility]) Tig3471-Ccz 1.47 L/E/sec [facility] ([facility], ) Kdi5059-%Pred-Pre 80 L/E/sec [facility] ([facility]) Svp2059-NAQ 0.12 L/E/sec [facility] ([facility]) Ndq9yem9-Wnsl 75 % [facility] ([facility]) ExpTime-Pre 4.77 sec [facility] ([facility]) Uoi6iop0-Rgd 71 % [facility] ([facility]) Jbo0tao2-%Pred-Pre 93 % [facility] ([facility]) Llj7otd0-FRN 66 % [facility] ([facility]) ID Date Data Source [id number] 02/17/2020 01:36:00 PM EST [facility] Name Value Range Interpretation Code Description Data Anila rce(s) Supporting Document(s) Thyroxine (T4) free [Mass/volume] in Serum or Plasma 1.30 ng/dL 0.76- 1.46 [facility] ID Date Data Source [id number] 02/17/2020 01:36:00 PM EST [facility] Name Value Range Interpretation Code Description Data Anila rce(s) Supporting Document(s) Thyrotropin [Units/volume] in Serum or Plasma by Detec tion limit <= 0.05 mIU/L 1.78 uIU/mL 0.36-3.74 [facility] ([facility] ID Date Data Source [id number] 02/17/2020 01:36:00 PM EST [facility] Name Value Range Interpretation Code Description Data Anila rce(s) Supporting Document(s) Triglyceride [Mass/volume] in Serum or Plasma 165 mg/dL 30-150 [facility] ([facility]) Cholesterol [Mass/volume] in Serum or Plasma 117 mg/dL 131-200 [facility] ([facility]) Cholesterol in LDL [Mass/volume] in Serum or Plasma by calcu lation 41 CALC 50-159 [facility] ([facility]) Cholesterol in HDL [Mass/volume] in Serum or Plasma 43 mg/dL 35-60 [facility] ([facility]) ID Date Data Source [id number] 02/17/2020 01:36:00 PM EST [facility] ([facility]) Name Value Range Interpretation Code Description Data Anila rce(s) Supporting Document(s) Glucose [Mass/volume] in Serum or Plasma 95 mg/dL 74-99 [facility] ([facility]) 100-125 mg/dL PRE-DIABETES/FASTING >126 mg/dL DIABETES/FASTING Urea nitrogen [Mass/volume] in Serum or Plasma 19 mg/dL 7-18 [facility] ([facility]) Sodium [Moles/volume] in Serum or Plasma 142 meq/L 136-145 [facility] ([facility]) Creatinine 1.1 mg/dL 0.6-1.3 [facility] Chloride [Moles/volume] in Serum or Plasma 106 meq/L 98-107 [facility] ([facility]) Potassium [Moles/volume] in Serum or Plasma 4.4 meq/L 3.5-5.1 [facility] ([facility]) Calcium [Mass/volume] in Serum or Plasma 9.4 mg/dL 8.5-10.1 [facility] ([facility]) Alkaline phosphatase isoenzyme [Units/volume] in Serum or Pl asma 93 mg/dL 46-116 [facility] ([facility]) Carbon dioxide, total [Moles/volume] in Serum or Plasma 30 meq/L 21 -32 [facility] ([facility]) Alanine aminotransferase [Enzymatic activity/volume] in Seru m or Plasma 29 U/L 12-78 [facility] ([facility]) Total Bilirubin 0.5 mg/dL 0.2-1.0 [facility] ([facility]) Aspartate aminotransferase [Enzymatic activity/volume] in Serum or Plasma 35 U/L 15-37 [facility] ([facility] ) Proteinase 3 Ab [Units/volume] in Serum 7.5 g/dL 6.4-8.2 [facility] ([facility]) Albumin [Mass/volume] in Serum or Plasma 3.6 g/dL 3.4-5.0 [facility] ([facility]) A/G Ratio 0.92 CALC 1.00-1.90 [facility] ([place] [facility]) Glomerular filtration rate/1.73 sq M pre dicted among non-blacks [Volume Rate/Area] in Serum or Plasma by Creatinine-based formula (MDRD) Laboratory test [facility] Glomerular filtration rate/1.73 sq M pre dicted among blacks [Volume Rate/Area] in Serum or Plasma by Creatinine-based formula (MDRD) Laboratory test result [facility] ([facility]) <content>CHRONIC KIDNEY DISEASE STAGING PER NKF</content>
<content></content>
<content>STAGE I & II GFR >= 60 NORMAL TO MILDLY DECREASED</content>
<content>STAGE III GFR 30-59 MODERATELY DECREASED</content>
<content>STAGE IV GFR 15-29 SEVERELY DECREASED</content>
<content>STAGE V GFR <15 VERY LITTLE GFR LEFT</content>
<content>ESRD GFR <15 ON CONSULTING SERVICES PROJECT MANAGER</content>
<content></content> ID Date Data Source [id number] 02/17/2020 01:36:00 PM EST [facility] Name Value Range Interpretation Code Description Data Anila rce(s) Supporting Document(s) Glucose mean value [Mass/volume] in Blood Estimated fr om glycated hemoglobin 111 mg/dL 60-110 [facility] ([facility] ) Hemoglobin A1c/Hemoglobin.total in Blood 5.5 % [facility] ([facility]) Lab Result Notes: Pre-Diabetes 5.7 - 6.4 % Diabetes = or > 6.5% ID Date Data Source [id number] 02/17/2020 01:36:00 PM EST [facility]) Name Value Range Interpretation Code Description Data Anila rce(s) Supporting Document(s) Leukocytes [#/volume] in Blood by Automated count 6.4 x10*3/UL 4.1-10 .9 [facility] NOTE: RESULT VERIFIED. Erythrocytes [#/volume] in Blood by Automated count 3.66 x10*6/UL 4.2 0-6.30 [facility] ([facility]) Hemoglobin [Mass/volume] in Blood 11.4 g/dL 12.0-18.0 [facility] ([facility]) Hematocrit [Volume Fraction] of Blood by Automated count 33.5 % 3 7.0-51.0 [facility] ([facility]) MCHC 34.3 g/dL 31.0-38.0 [facility] ([facility]) MCV 91.4 fL 80.0-97.0 [facility] ([facility]) MCH 31.3 pg 26.0-32.0 [facility] ([facility]) MPV 9.0 FL 7.8-11.0 [facility] ([facility]) Platelets [#/volume] in Blood by Automated count 168 x10*3/UL 140-440 [facility] Erythrocyte distribution width [Ratio] by Automated count 14.3 % 11.6-13.7 [facility] ([facility]) Neut % 65.7 % 37.0-92.0 [facility] ([facility]) Mid % 7.3 % 1.7-9.3 [facility] ([facility]) Lymph % 27.0 % 10.0-58.5 [facility] ([facility]) Lymph # 1.7 x10*3/UL 0.6-4.1 [facility] ([facility]) Neut # 4.2 x10*3/UL 2.0-7.8 [facility] ([facility]) Mid # 0.5 x10*3/UL 0.1-0.6 [facility] ([facility]) ID Date Data Source [id number] 02/17/2020 01:36:00 PM EST [facility] ([facility]) Name Value Range Interpretation Code Description Data Anila rce(s) Supporting Document(s) Hemoglobin A1c/Hemoglobin.total in Blood Laboratory test result [facility] ([facility]) ID Date Data Source [id number] 02/17/2020 07:46:00 AM EST [facility] Name Value Range Interpretation Code Description Data Anila rce(s) Supporting Document(s) White Blood Count 6.4 4.1-10.9 [facility] ([facility] Red Blood Count 3.66 4.2-6.30 [facility] ([facility]) Platelets 168 140-440 [facility] Hemoglobin 11.4 12.0-18.0 [facility] ([facility]) Hematocrit 33.5 37.0-51.0 [facility] ([facility]) ID Date Data Source [id number] 02/17/2020 07:46:00 AM EST [facility] ([facility] Name Value Range Interpretation Code Description Data Anila rce(s) Supporting Document(s) Triglycerides 165 30-150 [facility] ([facility]) Cholesterol 117 131-200 [facility] ([facility]) Cholesterol in LDL [Mass/volume] in Serum or Plasma by calculation 41 50-159 [facility] ([facility]) HDL 43 35-60 [facility] Chol/HDL Ratio Laboratory test result [facility] ([facility]) ID Date Data Source [id number] 02/17/2020 07:46:00 AM EST [facility] ([facility] Name Value Range Interpretation Code Description Data Anila rce(s) Supporting Document(s) Albumin [Mass/volume] in Serum or Plasma 3.6 [facility] ([facility]) Alanine aminotransferase [Enzymatic activity/volume] in Serum or Pl asma 29 [facility] ([facility]) Calcium [Mass/volume] in Serum or Plasma 9.4 [facility] ([facility]) Carbon dioxide, total [Moles/volume] in Serum or Plasma 30 [facility] ([facility]) Chloride [Moles/volume] in Serum or Plasma 106 [facility] ([facility]) Alkaline phosphatase [Enzymatic activity/volume] in Serum or Plasma 9 3 [facility] ([facility]) Potassium [Moles/volume] in Serum or Plasma 4.4 [facility] ([facility]) Protein [Mass/volume] in Serum or Plasma 7.5 [facility] ([facility]) Sodium 142 [facility] Aspartate aminotransferase [Enzymatic activity/volume] in Serum or Plasma 35 [facility] ([facility]) Urea nitrogen [Mass/volume] in Serum or Plasma 19 [facility] ([facility]) Glucose 95 74-106 [facility] Creatinine For GFR 1.1 [facility] ([facility]) Procedure Social History Code Duration Value Status Description Data Source(s ) Smoking 12/13/2020 12:00:00 AM EDT Patient is a former smoker completed Patient is a former smoker [facility] ([facility], ) Smoking 09/24/2020 12:00:00 AM EDT Former Smoker completed Former Smoker eCW1 ([facility]) Smoking 09/24/2020 12:00:00 AM EDT Former Smoker completed Former Smoker eCW1 ([facility]) Smoking 09/24/2020 12:00:00 AM EDT Former Smoker completed Former Smoker eCW1 ([facility]) Smoking 09/20/2020 12:00:00 AM EDT Patient is a former smoker completed Patient is a former smoker [facility] ([facility]) Smoking 09/12/2020 12:00:00 AM EDT Patient is a former smoker completed Patient is a former smoker [facility] ([facility]) Smoking 07/17/2020 12:00:00 AM EDT Former Smoker completed Former Smoker eCW1 ([facility]) Smoking 03/26/2020 12:00:00 AM EST Former Smoker completed Former Smoker eCW1 ([facility]) Smoking 02/13/2020 12:00:00 AM EST Former Smoker completed Former Smoker eCW1 ([facility]) Smoking 02/13/2020 12:00:00 AM EST Former Smoker completed Former Smoker eCW1 ([facility]) Vital Signs ID Date Data Source UNK Name Value Range Interpretation Code Description Data Source(s) Body mass index (BMI) [Ratio] 28.6 kg/m2 28.6 k g/m2 [facility] Body height 70 [in_i] 70 [in_i] [facility]) 5'10" Systolic blood pressure 132 mm[Hg] 132 mm[Hg] [facility] Diastolic blood pressure 72 mm[Hg] 72 mm[Hg] [facility] Heart rate 68 /min 68 /min [facility] ([facility]) Body weight 199.00 [lb_av] 199.00 [lb_av] [facility] ([facility]) Systolic blood pressure 110 mm[Hg] 110 mm[Hg] [facility] ([facility]) Diastolic blood pressure 70 mm[Hg] 70 mm[Hg] [facility]) Heart rate 50 /min 50 /min [facility] ([facility]) Oxygen saturation in Arterial blood by Pulse oximetry 98 % 98 % [facility] ([facility]) Body height 71 [in_i] 71 [in_i] [facility]) 5'11" Body weight 204.00 [lb_av] 204.00 [lb_av] [facility] PT States Body mass index (BMI) [Ratio] 28.4 kg/m2 28.4 k g/m2 [facility] ([facility]) [place] body weight 172 [lb_av] 172 [lb_av] [facility] Body weight 92.534 kg 92.534 kg [facility] ([facility]) Body surface area Derived from formula 2.13 m2 2.13 m2 [facility] ([facility]) Body height 70 [in_i] 70 [in_i] [facility] ([facility]) 5'10" Body weight 202.00 [lb_av] 202.00 [lb_av] [facility] ([facility]) Systolic blood pressure 102 mm[Hg] 102 mm[Hg] [facility] Body mass index (BMI) [Ratio] 29.0 kg/m2 29.0 k g/m2 [facility]) Diastolic blood pressure 56 mm[Hg] 56 mm[Hg] [facility]) Heart rate 56 /min 56 /min [facility]) Heart rate 56 /min 56 /min [facility]) Body height 70 [in_i] 70 [in_i] [facility] ([facility]) 5'10" Diastolic blood pressure 42 mm[Hg] 42 mm[Hg] [facility] ([facility]) RT Arm Body weight 204.38 [lb_av] 204.38 [lb_av] [facility] ([facility]) Body mass index (BMI) [Ratio] 29.3 kg/m2 29.3 k g/m2 [facility]) Systolic blood pressure 108 mm[Hg] 108 mm[Hg] [facility] RT Arm Oxygen saturation in Arterial blood by Pulse oximetry 91 % 91 % [facility] ([facility]) Air Body mass index (BMI) [Ratio] 27.7 kg/m2 27.7 k g/m2 [facility] ([facility]) Body weight 204.00 [lb_av] 204.00 [lb_av] [facility] T ([facility]) Body height 72 [in_i] 72 [in_i] [facility] 6'0" Body mass index (BMI) [Ratio] 30.3 kg/m2 30.3 k g/m2 [facility] ([facility]) Systolic blood pressure 130 mm[Hg] 130 mm[Hg] [facility] ([facility]) Diastolic blood pressure 60 mm[Hg] 60 mm[Hg] [facility]) Heart rate 54 /min 54 /min [facility] ([facility]) Body height 70 [in_i] 70 [in_i] [facility] ([facility]) 5'10" Body weight 211.00 [lb_av] 211.00 [lb_av] [facility] T ([facility]) Diastolic blood pressure 68 mm[Hg] 68 mm[Hg] [facility] ([facility]) Systolic blood pressure 111 mm[Hg] 111 mm[Hg] [facility]) Heart rate 67 /min 67 /min [facility] ([facility], [facility]) Respiratory rate 12 /min 12 /min [facility] ( [facility], [facility]) Oxygen saturation in Arterial blood by Pulse oximetry 96 % 96 % [facility] ([facility], [facility]) Body temperature 96.8 [degF] 96.8 [degF] [facility] ([facility], [facility]) Body weight 204.00 [lb_av] 204.00 [lb_av] [facility] T ([facility]) Body height 72 [in_i] 72 [in_i] [facility] ([facility]) 6'0" Body mass index (BMI) [Ratio] 27.7 kg/m2 27.7 k g/m2 [facility] ([facility] [facility]) Body weight 245 [lb_av] 245 [lb_av] eCW1 ([facility]) Body height 70 [in_i] 70 [in_i] eCW1 ([facility]) Body mass index (BMI) [Ratio] 35.15 kg/m2 35.15 kg/m2 eCW1 ([facility]) Heart rate 67 /min 67 /min eCW1 ([facility]) Respiratory rate 18 /min 18 /min eCW1 ([facility]) Body temperature 97.1 [degF] 97.1 [degF] eCW1 ( [facility]) Systolic blood pressure 162 mm[Hg] 162 mm[Hg] e CW1 ([facility]) Diastolic blood pressure 81 mm[Hg] 81 mm[Hg] eCW1 ([facility]) Systolic blood pressure 160 mm[Hg] 160 mm[Hg] M EDENT ([facility], [facility]) Heart rate 68 /min 68 /min MEDENT ([facility], [facility]) Diastolic blood pressure 78 mm[Hg] 78 mm[Hg] MEDENT ([facility], [facility]) Respiratory rate 17 /min 17 /min MEDENT ( [facility], [facility]) Body temperature 98.4 [degF] 98.4 [degF] MEDENT ([facility], [facility]) Body weight 204.00 [lb_av] 204.00 [lb_av] MEDEN T ([facility], [facility]) Oxygen saturation in Arterial blood by Pulse oximetry 98 % 98 % MEDENT ([facility]) Body height 72 [in_i] 72 [in_i] MEDENT ([facility]) 6'0" Body mass index (BMI) [Ratio] 27.7 kg/m2 27.7 k g/m2 MEDENT ([facility]) Diastolic blood pressure--sitting 64 mm[Hg] 64 mm[Hg] MEDENT ([facility]) Ra, large cuff Body weight 209.00 [lb_av] 209.00 [lb_av] MEDEN T ([facility]) Body height 72 [in_i] 72 [in_i] MEDENT ([facility] 6'0" Body mass index (BMI) [Ratio] 28.3 kg/m2 28.3 k g/m2 MEDENT ([facility]) Heart rate 70 /min 70 /min MEDENT ([facility]) Systolic blood pressure--sitting 110 mm[Hg] 110 mm[Hg] MEDENT ([facility]) Ra, large cuff Diastolic blood pressure 58 mm[Hg] 58 mm[Hg] MEDENT ([facility]) ra Heart rate 80 /min 80 /min MEDENT ([facility]) Systolic blood pressure 102 mm[Hg] 102 mm[Hg] [facility] RT Arm Diastolic blood pressure 68 mm[Hg] 68 mm[Hg] [facility] RT Arm Systolic blood pressure 114 mm[Hg] 114 mm[Hg] [facility] ra Body height 70 [in_i] 70 [in_i] MEDENT ([facility]) 5'10" Body weight 220.12 [lb_av] 220.12 [lb_av] MEDEN T ([facility]) Oxygen saturation in Arterial blood by Pulse oximetry 97 % 97 % MEDENT ([facility]) Air Body mass index (BMI) [Ratio] 31.6 kg/m2 31.6 k g/m2 MEDENT ([facility]) Body height 70 [in_i] 70 [in_i] MEDENT ([facility] 5'10" Body weight 220.00 [lb_av] 220.00 [lb_av] MEDEN T ([facility] Systolic blood pressure 126 mm[Hg] 126 mm[Hg] M EDENT ([facility] Body mass index (BMI) [Ratio] 31.6 kg/m2 31.6 k g/m2 MEDENT ([facility] Diastolic blood pressure 60 mm[Hg] 60 mm[Hg] MEDENT ([facility] Heart rate 62 /min 62 /min MEDENT ([facility] Systolic blood pressure 120 mm[Hg] 120 mm[Hg] M EDENT ([facility]) Body weight 220.00 [lb_av] 220.00 [lb_av] MEDEN T ([facility]) Body mass index (BMI) [Ratio] 31.6 kg/m2 31.6 k g/m2 MEDENT ([facility]) Body height 70 [in_i] 70 [in_i] MEDENT ([facility]) 5'10" Diastolic blood pressure 60 mm[Hg] 60 mm[Hg] MEDENT ([facility]) Heart rate 64 /min 64 /min MEDENT ([facility]) Body weight 245 [lb_av] 245 [lb_av] W1 ([facility]) Body temperature 96.1 [degF] 96.1 [degF] eCW1 ( [facility]) Systolic blood pressure 150 mm[Hg] 150 mm[Hg] e CW1 ([facility]) Diastolic blood pressure 78 mm[Hg] 78 mm[Hg] eCW1 ([facility]) Body height 70 [in_i] 70 [in_i] W1 ([facility]) Body mass index (BMI) [Ratio] 35.15 kg/m2 35.15 kg/m2 eCW1 ([facility]) Heart rate 80 /min 80 /min eCW1 ([facility]) Respiratory rate 18 /min 18 /min eCW1 ([facility]) Body temperature 97.2 [degF] 97.2 [degF] MEDENT ([facility], ) Respiratory rate 16 /min 16 /min MEDENT ( [facility]) Body mass index (BMI) [Ratio] 29.8 kg/m2 29.8 k g/m2 MEDENT ([facility]) [place] body weight 172 [lb_av] 172 [lb_av] MEDEN T ([facility]) Body weight 97.070 kg 97.070 kg [facility] Body height 71 [in_i] 71 [in_i] MEDENT ([facility]) 5'11" Body weight 214.00 [lb_av] 214.00 [lb_av] MEDEN T ([facility]) Oxygen saturation in Arterial blood by Pulse oximetry 100 % 100 % [facility] ([facility]) Systolic blood pressure 157 mm[Hg] 157 mm[Hg] EDENT ([facility]) Diastolic blood pressure 74 mm[Hg] 74 mm[Hg] [facility] ([facility]) Heart rate 58 /min 58 /min [facility] ([facility]) Oxygen saturation in Arterial blood by Pulse oximetry 100 % 100 % [facility] ([facility]) Respiratory rate 16 /min 16 /min MEDENT ( [facility]) Body temperature 97.2 [degF] 97.2 [degF] MEDENT ([facility]) Body height 71 [in_i] 71 [in_i] MEDENT ([facility]) 5'11" Body weight 214.00 [lb_av] 214.00 [lb_av] MEDEN T ([facility]) Body mass index (BMI) [Ratio] 29.8 kg/m2 29.8 k g/m2 [facility] ([facility]) [place] body weight 172 [lb_av] 172 [lb_av] MEDEN T ([facility]) Body weight 97.070 kg 97.070 kg [facility] Body surface area Derived from formula 2.17 m2 2.17 m2 [facility] ([facility]) Body surface area Derived from formula 2.17 m2 2.17 m2 [facility] ([facility]) Body height 70 [in_i] 70 [in_i] MEDENT ([facility]) 5'10" Body weight 220.00 [lb_av] 220.00 [lb_av] MEDEN T ([facility]) Systolic blood pressure 126 mm[Hg] 126 mm[Hg] M EDENT ([facility]) Diastolic blood pressure 60 mm[Hg] 60 mm[Hg] [facility] Heart rate 62 /min 62 /min [facility] ([facility]) Oxygen saturation in Arterial blood by Pulse oximetry 92 % 92 % [facility] Body mass index (BMI) [Ratio] 31.6 kg/m2 31.6 k g/m2 [facility] ([facility]) Systolic blood pressure 133 mm[Hg] 133 mm[Hg] [facility] Diastolic blood pressure 72 mm[Hg] 72 mm[Hg] [facility] ([facility]) Heart rate 61 /min 61 /min [facility] ([facility]) Oxygen saturation in Arterial blood by Pulse oximetry 99 % 99 % [facility] ([facility]) Body temperature 96.8 [degF] 96.8 [degF] [facility] ([facility]) Body height 71 [in_i] 71 [in_i] [facility] ([facility]) 5'11" Body weight 214.50 [lb_av] 214.50 [lb_av] MEDEN T ([facility]) Body mass index (BMI) [Ratio] 29.9 kg/m2 29.9 k g/m2 [facility] ([facility]) [place] body weight 172 [lb_av] 172 [lb_av] MEDEN T ([facility], ) Body weight 97.300 kg 97.300 kg MEDENT ([facility]) Body surface area Derived from formula 2.17 m2 2.17 m2 [facility] Body weight 215.00 [lb_av] 215.00 [lb_av] MEDEN T ([facility]) Body height 72 [in_i] 72 [in_i] MEDENT ([facility]) 6'0" Heart rate 60 /min 60 /min MEDENT ([facility]) regular Respiratory rate 16 /min 16 /min MEDENT ( [facility]) Body mass index (BMI) [Ratio] 29.2 kg/m2 29.2 k g/m2 MEDENT ([facility]) Systolic blood pressure--sitting 121 mm[Hg] 121 mm[Hg] MEDENT ([facility]) Medium cuff, Ra Diastolic blood pressure--sitting 64 mm[Hg] 64 mm[Hg] MEDENT ([facility]) Medium cuff, Ra Systolic blood pressure--supine 132 mm[Hg] 132 mm[Hg] MEDENT ([facility]) Diastolic blood pressure--supine 66 mm[Hg] 66 mm[Hg] MEDENT ([facility]) Body weight 224.2 [lb_av] 224.2 [lb_av] eCW1 ([facility]) Body height 70 [in_i] 70 [in_i] eCW1 ([facility]) Body mass index (BMI) [Ratio] 32.17 kg/m2 32.17 kg/m2 eCW1 ([facility]) Heart rate 60 /min 60 /min eCW1 ([facility]) Respiratory rate 18 /min 18 /min eCW1 ([facility]) Body temperature 98.3 [degF] 98.3 [degF] eCW1 ( [facility]) Systolic blood pressure 157 mm[Hg] 157 mm[Hg] e CW1 ([facility]) Diastolic blood pressure 72 mm[Hg] 72 mm[Hg] eCW1 ([facility]) Heart rate 60 /min 60 /min [facility] ([facility]) Oxygen saturation in Arterial blood by Pulse oximetry 96 % 96 % [facility] ([facility]) Body temperature 96.5 [degF] 96.5 [degF] [facility] ([facility]) Body height 72 [in_i] 72 [in_i] [facility] ([facility]) 6'0" Body weight 218.00 [lb_av] 218.00 [lb_av] MEDEN T ([facility]) Body mass index (BMI) [Ratio] 29.6 kg/m2 29.6 k g/m2 [facility] ([facility]) [place] body weight 178 [lb_av] 178 [lb_av] [facility] Body weight 98.885 kg 98.885 kg [facility] ([facility]) Body surface area Derived from formula 2.21 m2 2.21 m2 [facility] ([facility]) Systolic blood pressure 130 mm[Hg] 130 mm[Hg] [facility] Diastolic blood pressure 80 mm[Hg] 80 mm[Hg] [facility] ([facility]) Body weight 218.00 [lb_av] 218.00 [lb_av] [facility] Body weight 98.885 kg 98.885 kg [facility] ([facility]) Body surface area Derived from formula 2.21 m2 2.21 m2 [facility] ([facility]) Systolic blood pressure 128 mm[Hg] 128 mm[Hg] [facility] Diastolic blood pressure 76 mm[Hg] 76 mm[Hg] [facility] ([facility]) Heart rate 60 /min 60 /min [facility] ([facility]) Oxygen saturation in Arterial blood by Pulse oximetry 96 % 96 % [facility] ([facility]) Body temperature 96.4 [degF] 96.4 [degF] [facility] ([facility]) Body height 72 [in_i] 72 [in_i] [facility], [facility] 6'0" Body mass index (BMI) [Ratio] 29.6 kg/m2 29.6 k g/m2 MEDENT ([facility]) [place] body weight 178 [lb_av] 178 [lb_av] MEDEN T ([facility]) Diastolic blood pressure--sitting 66 mm[Hg] 66 mm[Hg] MEDENT ([facility]) Medium cuff, Ra; 112/62 [place] Respiratory rate 16 /min 16 /min MEDENT ( [facility]) Body mass index (BMI) [Ratio] 31.1 kg/m2 31.1 k g/m2 MEDENT ([facility]) Systolic blood pressure--sitting 110 mm[Hg] 110 mm[Hg] MEDENT ([facility]) Medium cuff, Ra; 112/62 [place] Heart rate 64 /min 64 /min MEDENT ([facility]) regular Body weight 229.00 [lb_av] 229.00 [lb_av] MEDEN T ([facility]) Systolic blood pressure--supine 116 mm[Hg] 116 mm[Hg] MEDENT ([facility]) Ra Diastolic blood pressure--supine 68 mm[Hg] 68 mm[Hg] MEDENT ([facility]) Ra Body height 72 [in_i] 72 [in_i] [facility] 6'0" Oxygen saturation in Arterial blood by Pulse oximetry 98 % 98 % MEDENT ([facility]) Systolic blood pressure 110 mm[Hg] 110 mm[Hg] M EDENT ([facility]) Body weight 220.00 [lb_av] 220.00 [lb_av] MEDEN T ([facility]) Oxygen saturation in Arterial blood by Pulse oximetry 96 % 96 % MEDENT ([facility]) Air Body mass index (BMI) [Ratio] 31.6 kg/m2 31.6 k g/m2 MEDENT ([facility]) Diastolic blood pressure 60 mm[Hg] 60 mm[Hg] MEDENT ([facility]) Heart rate 64 /min 64 /min MEDENT ([facility]) Body height 70 [in_i] 70 [in_i] [place]ER[place] ([facility]) 5'10" Body weight 226 [lb_av] 226 [lb_av] eCW1 ([facility]) Body height 70 [in_i] 70 [in_i] eCW1 ([facility]) Body mass index (BMI) [Ratio] 32.42 kg/m2 32.42 kg/m2 eCW1 ([facility]) Heart rate 65 /min 65 /min eCW1 ([facility]) Respiratory rate 20 /min 20 /min eCW1 ([facility]) Body temperature 95.6 [degF] 95.6 [degF] eCW1 ( [facility]) Systolic blood pressure 148 mm[Hg] 148 mm[Hg] e CW1 ([facility]) Diastolic blood pressure 72 mm[Hg] 72 mm[Hg] eCW1 ([facility]) Body weight 219 [lb_av] 219 [lb_av] eCW1 ([facility]) Respiratory rate 20 /min 20 /min eCW1 ([facility]) Body temperature 97 [degF] 97 [degF] eCW1 ([facility]) Systolic blood pressure 110 mm[Hg] 110 mm[Hg] e CW1 ([facility]) Heart rate 67 /min 67 /min eCW1 ([facility]) Body height 70 [in_i] 70 [in_i] eCW1 ([facility]) Body mass index (BMI) [Ratio] 31.42 kg/m2 31.42 kg/m2 eCW1 ([facility]) Diastolic blood pressure 60 mm[Hg] 60 mm[Hg] eCW1 ([facility]) Patient Treatment Plan of Care Planned Activity Planned Date Details Description Data Source (s) Finasteride 5 MG Oral Tablet 02/13/2020 12:00:00 AM EST eCW1 ([facility]) Sulfamethoxazole 800 MG / Trimethoprim 160 MG Oral Tab let [Bactrim] 02/13/2020 12:00:00 AM EST eCW1 ([facility]) Finasteride 5 MG Oral Tablet 02/13/2020 12:00:00 AM EST eCW1 ([facility]) Sulfamethoxazole 800 MG / Trimethoprim 160 MG Oral Tab let [Bactrim] 02/13/2020 12:00:00 AM EST eCW1 ([facility]) Finasteride 5 MG Oral Tablet 02/13/2020 12:00:00 AM EST eCW1 ([facility])
[2021-02-27] MEDS ORDERED: NS 500 ML IV ONE (09:40)
--- NOTE | 2021-02-27 09:51 | REP ---
INDICATION: DYSPNEA/COUGH COMPARISON: 10/22/2020 TECHNIQUE: Portable AP view of the chest FINDINGS: Diffuse bilateral airspace disease and lower lobe consolidations (right greater than left) along with suspected right pleural effusion. Mediastinum and cardiac silhouette are stable. Prior sternotomy and CABG again noted. Pacemaker leads in satisfactory stable position. Skeletal structures demonstrate degenerative changes. IMPRESSION: Diffuse bilateral multifocal opacities and lower lobe consolidations with small right pleural effusion. <Electronically signed by Goyo Alvarado > 02/27/21 09
[2021-02-27 10:09] LABS: VENOUS BASE EXCESS 3.2 (-2.0-2.0); VENOUS HCO3 27.5 MEQ/L (23.0-27.0); VENOUS O2 SATURATION 87.8 % (60.0-80.0); VENOUS PARTIAL PRESSURE CO2 41.2 mmHg (38.0-50.0); VENOUS PARTIAL PRESSURE O2 56.8 mmHg (30.0-50.0); VENOUS PH 7.443 UNITS (7.330-7.430); VENOUS STANDARD HCO3 27.1 MEQ/L; VENOUS TOTAL CO2 28.8 MEQ/L (24.0-28.0)
[2021-02-27 10:20] LABS: BASO % 0.2 % (0.0-1.0); EOS % 0.1 % (0.0-3.0); HEMATOCRIT 28.9 % (42.0-52.0); HEMOGLOBIN 9.1 g/dl (13.5-17.5); LYMPH # 0.9 10^3/uL (1.5-5.0); LYMPH % 4.7 % (24.0-44.0); MEAN CORPUSCULAR HEMOGLOBIN 28.3 pg (27.0-33.0); MEAN CORPUSCULAR HGB CONC 31.5 g/dl (32.0-36.5); MONO # 0.8 10^3/uL (0.0-0.8); MONO % 4.1 % (2.0-8.0); NEUTROPHILS # 17.1 10^3/uL (1.5-8.5); NEUTROPHILS % 90.3 % (36.0-66.0); PLATELET COUNT, AUTOMATED 197 10^3/uL (150-450); RED BLOOD COUNT 3.21 10^6/uL (4.30-6.10); WHITE BLOOD COUNT 18.9 10^3/uL (4.0-10.0)
[2021-02-27 10:30] LABS: INR 1.55
[2021-02-27 10:38] LABS: CK-MB VALUE MASS < 1.0 NG/ML (<3.6); CPK CREATINE PHOSPHOKINASE 36 U/L (39-308); MB/CK RELATIVE INDEX 2.78 (< OR =4); TROPONIN I 0.03 NG/ML (< 0.10)
[2021-02-27 10:44] LABS: ALBUMIN 2.6 GM/DL (3.2-5.2); BILIRUBIN,DIRECT 0.5 MG/DL (0.0-0.2); BILIRUBIN,TOTAL 0.9 MG/DL (0.2-1.0); CALCIUM LEVEL 8.9 MG/DL (8.8-10.2); CREATININE FOR GFR 1.67 MG/DL (0.70-1.30); GLOMERULAR FILTRATION RATE 41.6 (>35); POTASSIUM SERUM 4.6 MEQ/L (3.5-5.1); THYROID STIMULATING HORMONE 2.5 uIU/ML (0.358-3.740); TOTAL PROTEIN 6.9 GM/DL (6.4-8.2)
--- OUTSIDE RECORDS SUMMARY | 2021-02-27 11:04 | CCD ---
Author Author [facility] [employer] [facility] Organization [employer] [facility] Address Unknown Phone Unavailable Care Team Providers Care Installment Dealer Name Role Phone Neville SILVA MD Unavailable Unavailable Neville SILVA [...] Unavailable Neville SILVA MD Unavailable Unavailable Neville ISLVA MD Unavailable Unavailable Neville SILVA MD Unavailable [...] M KIRSTEN PA Unavailable Unavailable KNIGHT, M KIRSETN PA Unavailable Unavailable KNIGHT, M KIRSTEN PA Unavailable Unavailable KNIGHT, M KIRSTEN PA Unavailable Unavailable KNIGHT, M KIRSTEN PA Unavailable Unavailable KNIGHT, M KIRSTEN PA Unavailable Unavailable KNIGHT, M KIRSTEN PA Unavailable Unavailable KNIGHT, M KIRSTEN PA Unavailable Unavailable KNIGHT, M IKRSTEN PA Unavailable Unavailable KNIGHT, M KIRSTEN PA [...] is protected by Article 27-F of the [facility] Public Health law. If you continue you may have access to information: Regarding HIV / AIDS; Provided by facilities licensed or operated by the [facility] Office of Mental Health; or Provided by the [facility] Office for People With Developmental Disabilities. If such information is present, then the following [facility] mandated warning applies: This information has been [...] Drug Allergy NKDA MED[facility] ([facility]) Encounters Encounter Providers Location Date Indications Data Source(s ) Outpatient Attender: Soraya Campbell 01/14 03:00:00 PM EDT MEDENT ([facility] ) Office Visit Attender: LARA SILVA MD Main Office 12/26/2020 08:00:0 0 PM EDT MEDENT ([facility]) Outpatient Attender: JT Knowles/Zuleika/Gopi/Franklin 12/13/2020 10:00:00 AM EDT MEDENT ([facility]) Outpatient Attender: Soraya Campbell 12/07 01:30:00 PM EDT MEDENT ([facility] ) Unknown [address] [facility] [id number] 12/03/2020 12:00:00 AM EDT eCW1 ([facility]) Office Visit Attender: LARA SILVA MD Main Office 11/13/2020 05:11:0 0 PM EDT MEDENT ([facility]) Outpatient Attender: Soraya Campbell 11/09 11:00:00 AM EDT MEDENT ([facility] ) Outpatient Attender: TULIO BILLS Main Office 11/02/2020 0 8:00:00 AM EDT MEDENT ([facility]) Office Visit Attender: LARA SILVA MD Main Office 10/25/2020 05:51:0 0 PM EDT MEDENT ([facility]) Unknown [address] [facility] [id number] 10/23/2020 12:00:00 AM EDT eCW1 ([facility]) Outpatient Attender: GROVER solis 09/24/2020 01:50:00 PM EDT MEDENT ([facility]) (Cysto1) Urology [address] [place] [address] 09/24/2020 12:00:00 AM EDT eCW1 ([facility]) Outpatient Attender: TAURUS Helm ry 09/20/2020 03:00:00 PM EDT MEDENT ([facility]) Office Visit Attender: LARA SILVA MD Main Office 09/17/2020 01:44:0 0 PM EDT MEDENT ([facility]) Outpatient Attender: TULIO BILLS Main Office 09/12/2020 0 1:00:00 PM EDT MEDENT ([facility]) Outpatient Attender: Soraya Campbell 09/07 11:00:00 AM EDT MEDENT ([facility] ) Outpatient Attender: LOREN DELEON [facility] Office 08/12 03:00:00 PM EDT MEDENT ([facility] Outpatient Attender: Soraya Gundersonronna 08/21 02:00:00 PM EDT MEDENT ([facility] ) Office Visit Attender: LARA SILVA MD Main Office 08/17/2020 03:10:0 0 PM EDT MEDENT ([facility]) Outpatient Attender: Samantha BILLS Main Office 07/26/2020 09:30:00 AM EDT MED[facility] ([facility]) Outpatient [address] [facility] [place] [address] 07/17/2020 12:00:00 AM EDT eCW1 ([facility]) Office Visit Attender: LARA SILVA MD Main Office 07/16/2020 01:35:0 0 PM EDT MEDENT ([facility]) Outpatient Attender: Samantha BILLS Main Office 07/12/2020 11:15:00 AM EDT MEDENT ([facility]) Outpatient Attender: Soraya Carlosarelis Campbell 07/09 11:00:00 AM EDT MEDENT ([facility] ) Office Visit Attender: LARA SILVA MD Main Office 06/13/2020 10:11:0 0 AM EST MEDENT ([facility]) Outpatient Attender: KIRSTEN Redd/Zuleika/Gopi/Rein dl 06/12/2020 09:00:00 AM EST MEDENT ([facility]) Outpatient Attender: LARA SILVA MD Main Office 06/06/2020 08:00:00 AM EST MEDENT ([facility]) Outpatient Attender: Samantha BILLS Main Office 05/03/2020 08:15:00 AM EST MEDENT ([facility]) Office Visit Attender: LARA SILVA MD Main Office 04/27/2020 02:56:0 0 PM EST MEDENT ([facility]) Outpatient Attender: Samantha BILLS Main Office 03/26/2020 08:30:00 AM EST MEDENT ([facility]) (Cysto1) Urology [address] [place] [address] 03/26/2020 12:00:00 AM EST eCW1 ([facility]) Outpatient Attender: KIRSTEN Delgadoang/Winner/Gopi/Rein dl 03/21/2020 10:00:00 AM EST MEDENT ([facility]) Outpatient Attender: KIRSTEN Redd/Winner/Gopi/Rein dl 03/20/2020 09:30:00 AM EST MEDENT ([facility]) OFFICE OUTPATIENT NEW 60 MINUTES Attender: LARA SILVA MD Main Office 02/22/2020 11:45:00 AM EST MED[facility] ([facility]) OFFICE OUTPATIENT NEW 30 MINUTES Attender: Soraya Victoria 02/17/2020 12:00:00 PM EST [facility] ([facility]) Unknown [address] [facility] [place] [address] 02/14/2020 12:00:00 AM EST eCW1 ([facility]) Outpatient [address] [facility] [place] [address] 02/13/2020 12:00:00 AM EST eCW1 ([facility]) Outpatient [address] [facility] [place] [address] 01/19/2020 12:00:00 AM EDT eCW1 ([facility]) Immunizations Vaccine Date Status Description Data Source(s) COVID-19 VACC, MRNA(PFIZER)/PF 02/13/2021 12:00:00 AM EDT completed [facility] COVID-19 VACCINE Pfizer 01/24/2021 12:00:00 AM EDT completed [facility] Vaccine Series Complete: YESThis Data wa s Submitted to [facility] Via [employer] COVID-19 VACCINE Pfizer 05/17/2020 12:00:00 AM EST completed [facility] Vaccine Series Complete: YESThis Data wa s Submitted to [facility] Via [employer] COVID-19 VACCINE Pfizer 04/26/2020 12:00:00 AM EST completed [facility] Vaccine Series Complete: NOThis Data was Submitted to [facility] Via [employer] Medications Medication Brand Name Start Date Product [...] AM EDT active M EDENT ([facility]) Docusate Sodium 100 MG Oral Capsule [Colace] Colace 12:00:00 AM EDT ORAL active MEDENT ( [facility]) Docusate Sodium 100 MG Oral Capsule [Colace] Colace 01/2021 12:00:00 AM EDT ORAL active MEDENT ( [facility]) 2.5 mg /3 mL (0.083 %) 12/14/2020 12:00:00 AM EDT solu tion for nebulization 375 USE 1 VIAL VIA NEBULIZER FOUR TIMES A DA Y NEEDED USE 1 VIAL VIA NEBULIZER FOUR TIMES A DAY NEEDED SOLD: 12/15/2020 [facility] Levothyroxine Sodium 0.112 MG Oral Tablet Levothyroxine Sodi um 12/13/2020 12:00:00 AM EDT ORAL active M EDENT ([facility]) 112 mcg 12/13/2020 12:00:00 AM EDT tablet 90 TAKE ONE TABLET BY MOUTH EVERY DAY TAKE ONE TABLET BY MOUTH EVERY DAY SOLD: 12/15/2020 [facility] Albuterol 0.83 MG/ML Inhalant Solution Albuterol Sulfate 0 12/13/2020 12:00:00 AM EDT active MEDENT ([facility] ) 0.4 mg 12/08/2020 12:00:00 AM [...] 12:00 :00 AM EDT ORAL active MEDENT ([facility]) Levothyroxine Sodium 0.125 MG Oral Tablet Levothyroxine Sodi um 12/07/2020 12:00:00 AM EDT ORAL completed MEDENT ([facility]) Finasteride 5 MG Oral Tablet FINASTERIDE [...] A DAY SOLD: 12/01/2020 [facility] sennosides, CORRECTION 8.6 MG Oral Tablet [Senokot] Senokot 12:00:00 AM EDT active MEDENT ( [facility]) Amiodarone hydrochloride 200 MG Oral Tablet Amiodarone HCL 11/02/2020 12:00:00 AM EDT ORAL active [facility] ([facility]) Amiodarone hydrochloride 200 MG Oral Tablet AMIODARONE [...] SOLD: 11/02/2020 [facility] Fluticasone Propionate Nasal [place] 24- Hour Fluticason e Propionate Nasal [place] 24- Hour 11/01/2020 12:00:00 AM EDT active MEDENT ([facility]) Loratadine 10 MG Oral Capsule Loratadine 11/01/2020 12:00:00 AM EDT ORAL active [facility] ([facility]) 2.5 mg 10/31/2020 12:00:00 AM EDT tablet [...] TABLET BY MOUTH EVERY DAY SOLD: 10/31/2020 [facility] Fluticasone propionate 0.05 MG/ACTUAT Metered Dose Yohannes al [place] 50 mcg/actuation FLUTICASONE PROPIONATE 10/31/2020 12:00:00 AM EDT spray,suspension 16 SPRAY 1 SPRAY IN EACH NOSTRIL TWICE DAILY SPRAY 1 SPRAY IN EACH NOSTRIL TWICE DAILY SOLD: 10/31/2020 [facility] 112 mcg 10/31/2020 12:00:00 AM EDT tablet 30 TAKE ONE TABLET BY MOUTH EVERY DAY AT 6AM. TAKE ONE TABLET BY MOUTH EVERY DAY AT 6AM. SOLD: 10/31/2020 [facility] 0.12 % 10/31/2020 12:00:00 AM EDT mouthwash 946 USE 15ML BY MOUTH THREE TIMES A DAY USE 15ML BY MOUTH THREE TIMES A DAY SOLD: 10/31/2020 [facility] pantoprazole 40 MG Delayed Release Oral Tablet PANTOPRAZOLE SODIUM 10/31/2020 12:00:00 AM EDT tablet,delayed release (DR/EC) 30 T JIE ONE TABLET BY MOUTH EVERY DAY TAKE ONE TABLET BY MOUTH EVERY DAY SOLD: 10/31/2020 [facility] Amoxicillin 500 MG / Clavulanate 125 MG Oral Tablet [Augment in] Augmentin 09/27/2020 12:00:00 AM EDT ORAL completed MEDENT ([facility]) Amoxicillin 500 MG / Clavulanate 125 MG Oral Tablet 50 0-125 mg AMOXICILLIN/POTASSIUM CLAV 09/27/2020 12:00:00 AM EDT tablet 20 TAKE ONE TABLET BY MOUTH TWICE A DAY WITH FOOD FOR 10 DAYS TAKE ONE TABLET BY MOUTH TWICE A DAY WITH FOOD FOR 10 DAYS SOLD: 09/27/2020 [facility] Doxycycline Monohydrate 100 MG Oral Capsule Doxycycline Barnes hydrate 09/20/2020 12:00:00 AM EDT ORAL active M EDENT ([facility]) 100 mg 09/20/2020 12:00:00 AM EDT capsule 20 TAKE ONE CAPSULE BY MOUTH TWICE A DAY FOR 10 DAYS TAKE ONE CAPSULE BY MOUTH TWICE A DAY FOR 10 DAYS SOLD : 09/21/2020 [facility] 75 mg 09/18/2020 12:00:00 AM EDT capsule 90 TAKE ONE CAPSULE BY MOUTH EVERY EVENING MAXIMUM DAILY DOSE = 1 TAKE ONE CAPSULE BY MOUTH EVERY EVENING MAXIMUM DAILY DOSE = 1 SOLD: 09/20/2020 [facility] Nystatin 09/11/2020 12:00:00 AM EDT active MEDENT ([facility]) torsemide 10 MG Oral Tablet Torsemide 09/11/2020 12:00:00 AM EDT ORAL active [facility] ([facility]) ferrous gluconate 324 MG Oral Tablet Ferrous Gluconate 04/2020 12:00:00 AM EDT ORAL active [facility] ([facility]) atorvastatin 20 MG Oral Tablet Atorvastatin Calcium 09/11/2020 1 2:00:00 AM EDT ORAL active MED[facility] ( [facility]) 324 mg (38 mg iron) 09/07/2020 12:00:00 [...] Gluconate 12:00:00 AM EDT ORAL active MEDENT ([facility]) torsemide 10 MG Oral Tablet Torsemide 09/07/2020 12:00:00 AM EDT ORAL active MEDENT ([facility]) Amoxicillin 500 MG / Clavulanate 125 MG Oral Tablet [Augment in] Augmentin 09/07/2020 12:00:00 AM EDT ORAL completed MEDENT ([facility]) Amoxicillin 500 MG / Clavulanate 125 MG Oral Tablet 50 0-125 mg AMOXICILLIN/POTASSIUM CLAV 09/07/2020 12:00:00 AM EDT tablet 4 TAKE ONE TABLET BY MOUTH TWICE A DAY WITH FOOD FOR 2 DAYS TAKE ONE TABLET BY MOUTH TWICE A DAY WITH FOOD FOR 2 DAYS SOLD: 09/07/2020 [facility] 324 mg (38 mg iron) 09/07/2020 [...] 08/23/2020 12:00:00 AM EDT ORAL completed [facility] atorvastatin 20 MG Oral Tablet [...] ONE TABLET DAILY AFTER THAT SOLD: 08/23/2020 [facility] torsemide 10 MG Oral Tablet Torsemide 08/21/2020 12:00:00 AM EDT ORAL completed MEDENT ([facility]) atorvastatin 20 MG Oral Tablet Atorvastatin Calcium 08/21/2020 1 2:00:00 AM EDT ORAL active MEDENT ( [facility]) 875-125 mg 07/03/2020 12:00:00 AM EDT [...] Unspecified 05/17/2020 12:00:00 AM EST completed [facility] ([facility]) Medication administered onsite 20 mg [...] 04/20/2020 12:00:00 AM EST ORAL completed MEDENT ([facility]) 2.5 mg 04/17/2020 12:00:00 AM EST [...] 1 05/21/2019 12:00:00 AM EST completed MEDENT ([facility] ) 200 ACTUAT Albuterol 0.09 MG/ACTUAT Metered Dose Inhal er [Ventolin] Ventolin HFA 03/20/2020 12:00:00 AM EST RESPIRATORY completed MEDENT ([facility] ) Trelegy Ellipta Trelegy Ellipta 03/20/2020 12:00:00 AM EST RESPIRATORY completed MED[facility] ([facility] ) 50 mg 03/09/2020 12:00:00 AM EST [...] AM EST ORAL active MEDENT ([facility]) Simvastatin 20 MG Oral Tablet Simvastatin 02/21/2020 12:00:00 AM EST ORAL active [facility] ([facility]) 24 HR metoprolol succinate 50 MG Extended Release Oral Tablet Metoprolol Succinate ER 02/21/2020 12:00:00 AM EST ORAL active MED[facility] ([facility]) Multivitamin Adult 02/21/2020 12:00:00 AM EST ORAL active MED[facility] ([facility]) Aspirin 81 MG Delayed Release Oral Tablet Aspirin 02/21/2020 1 2:00:00 AM EST ORAL [facility] Finasteride 5 MG Oral Tablet Finasteride 02/21/2020 12:00:00 AM EST ORAL active [facility] ([facility]) Levothyroxine Sodium 0.112 MG Oral Tablet Levothyroxine Sodi um 02/21/2020 12:00:00 AM EST ORAL active M EDENT ([facility]) Tamsulosin hydrochloride 0.4 MG Oral Capsule Tamsulosin HCL 02/21/2020 12:00:00 AM EST ORAL active [facility] ([facility]) apixaban 2.5 MG Oral Tablet [Eliquis] Eliquis 02/21/2020 12:00:00 AM EST ORAL active [facility] ([facility]) Brooke-bid Probiotic 02/21/2020 12:00:00 AM EST active MED[facility] ([facility]) pantoprazole 40 MG Delayed Release Oral Tablet Pantoprazole Sodium 02/21/2020 12:00:00 AM EST ORAL active M EDENT ([facility]) docosahexaenoic acid 120 MG / Eicosapentaenoic Acid 180 MG O ral Capsule [place] 3 02/20/2020 12:00:00 AM EST ORAL active MED[facility] ([facility]) pregabalin 75 MG Oral Capsule [Lyrica] Lyrica 02/20/2020 12:00:00 AM EST ORAL active [facility] ([facility]) 20 mg 02/20/2020 12:00:00 AM EST tablet [...] AM EST ORAL active MEDENT ([facility]) pregabalin 75 MG Oral Capsule Pregabalin 02/17/2020 12:00:00 AM EST active MEDENT ([facility]) apixaban 2.5 MG Oral Tablet [Eliquis] Eliquis 02/17/2020 12:00:00 AM EST ORAL active [facility] ([facility]) Levothyroxine Sodium 0.112 MG Oral Tablet Levothyroxine Sodi um 02/17/2020 12:00:00 AM EST ORAL active M EDENT ([facility]) Finasteride 5 MG Oral Tablet Finasteride 02/17/2020 12:00:00 AM EST ORAL active MEDENT ([facility]) 24 HR metoprolol succinate 50 MG Extended Release Oral Tablet Metoprolol Succinate ER 02/17/2020 12:00:00 AM EST ORAL active MEDENT ([facility]) Allopurinol 300 MG Oral Tablet Allopurinol 02/17/2020 12:00:00 AM EST ORAL active MEDENT ([facility]) pantoprazole 40 MG Delayed Release Oral Tablet Pantoprazole Sodium 02/17/2020 12:00:00 AM EST ORAL active M EDENT ([facility]) Tamsulosin hydrochloride 0.4 MG Oral Capsule Tamsulosin HCL 02/17/2020 12:00:00 AM EST active MED[facility] ([facility]) Aspirin 81 MG Delayed Release Oral Tablet Aspirin 02/17/2020 1 2:00:00 AM EST ORAL active MEDENT ([facility]) Centrum Silver 50+Men 02/17/2020 12:00:00 AM EST ORAL active MEDENT ([facility]) Fish Oil 02/17/2020 12:00:00 AM EST ORAL active MEDENT ([facility]) Sulfamethoxazole 800 MG / Trimethoprim 1 60 MG Oral Tablet [Bactrim] Bactrim DS 800-160 MG Bactrim DS 800-160 MG 02/13/2020 12:00:00 AM EST 1.0 {table t} suspended Bactrim DS 800-160 MG eCW1 ( [facility]) Finasteride 5 MG Oral Tablet Finasteride 5 MG 02/13/2020 12:00:00 A M EST 1.0 {tablet} active Finasteride 5 MG eCW1 ( [facility]) Sulfamethoxazole 800 MG / Trimethoprim 1 60 MG Oral Tablet [Bactrim] Bactrim DS 800-160 MG Bactrim DS 800-160 MG 02/13/2020 12:00:00 AM EST 1.0 {table t} active Bactrim DS 800-160 MG eCW1 ( [facility]) Sulfamethoxazole 800 MG / Trimethoprim 160 MG [...] suspended Bactrim DS 800-160 MG eCW1 ( [facility]) Sulfamethoxazole 800 MG / Trimethoprim 1 60 MG Oral Tablet [Bactrim] Bactrim DS 800-160 MG Bactrim DS 800-160 MG 02/13/2020 12:00:00 AM EST 1.0 {table t} active Bactrim DS 800-160 MG eCW1 ( [facility]) Sulfamethoxazole 800 MG / Trimethoprim 1 60 MG Oral Tablet [Bactrim] Bactrim DS 800-160 MG Bactrim DS 800-160 MG 02/13/2020 12:00:00 AM EST 1.0 {table t} suspended Bactrim DS 800-160 MG eCW1 ( [facility]) Finasteride 5 MG Oral Tablet Finasteride 5 MG 02/13/2020 12:00:00 A M EST 1.0 {tablet} active Finasteride 5 MG eCW1 ( [facility]) Finasteride 5 MG Oral Tablet FINASTERIDE 02/13/2020 [...] suspended Bactrim DS 800-160 MG eCW1 ( [facility]) Finasteride 5 MG Oral Tablet Finasteride 5 MG 02/13/2020 12:00:00 A M EST 1.0 {tablet} active Finasteride 5 MG eCW1 ( [facility]) Finasteride 5 MG Oral Tablet Finasteride 5 MG 02/13/2020 12:00:00 A M EST 1.0 {tablet} active Finasteride 5 MG eCW1 ( [facility]) Finasteride 5 MG Oral Tablet Finasteride 5 MG 02/13/2020 12:00:00 A M EST 1.0 {tablet} active Finasteride 5 MG eCW1 ( [facility]) Finasteride 5 MG Oral Tablet Finasteride 5 MG 02/13/2020 12:00:00 A M EST 1.0 {tablet} active Finasteride 5 MG eCW1 ( [facility]) Sulfamethoxazole 800 MG / Trimethoprim 1 60 MG Oral Tablet [Bactrim] Bactrim DS 800-160 MG Bactrim DS 800-160 MG 02/13/2020 12:00:00 AM EST 1.0 {table t} active Bactrim DS 800-160 MG eCW1 ( [facility]) Finasteride 5 MG Oral Tablet Finasteride 5 MG 02/13/2020 12:00:00 A M EST 1.0 {tablet} active Finasteride 5 MG eCW1 ( [facility]) Insurance Providers Payer name Policy type / Coverage type Policy ID Covered libertarian ID Covered libertarian's relationship to olivas Policy Olivas Plan Information [employer]/307 [id number] SP [id number] MEDICARE [id number] SP [id number] [place]/[id number] SP [id number] [place] 302/307 [id number] SP [id number] [place] 010/510 [id number] SP [id number] O UNAVAILABLE UNAVAILA BLE [employer] 010/510 [id number] SP [id number] Problems, Conditions, and Diagnoses Code Display Name Description Problem Type Effective Dates Data Source(s) R94.2 Pulmonary function studies abnormal Pulmonary fu nction studies abnormal Problem 12/13/2020 12:00:00 AM EDT MEDENT ([facility]) Z87.891 Ex-smoker Ex-smoker Problem 12/13/2020 12:00:00 AM ED [facility] J47.9 Bronchiolectasis Bronchiolectasis Problem 12/13/2020 12 :00:00 AM EDT MEDENT ([facility]) R91.8 Abnormal findings on diagnostic imaging of lung Abnormal findings on diagnostic imaging of lung Problem 12/13/2020 12:00:00 AM EDT MEDENT (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 Problem 06/06/2020 12:00:00 AM EST MED[facility] ([facility]) I71.2 Aneurysm of thoracic aorta Aneurysm of thoracic aorta Problem 06/06/2020 12:00:00 AM EST MED[facility] ([facility]) 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 Problem 06/06/2020 12:00:00 AM EST MED[facility] ([facility]) I11.9 Benign hypertensive heart disease Benign hyperte nsive heart disease Problem 02/22/2020 12:00:00 AM EST [facility] ([facility] 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 Mul ti vessel coronary artery disease Problem 02/22/2020 12:00:00 AM EST [facility] ([facility]) R94.31 Electrocardiogram abnormal Electrocardiogram abnormal Problem 02/22/2020 12:00:00 AM EST [facility] ([facility]) 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 Problem 02/22/2020 12:00:00 AM EST [facility] ([facility]) I49.5 Sinus node dysfunction Sinus node dysfunction Problem 02/22/2020 12:00:00 AM EST [facility] ([facility]) I48.21 Permanent atrial fibrillation Permanent atrial fibrill ation Problem 02/22/2020 12:00:00 AM EST MED[facility] ([facility]) Z85.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 History of bladder cancer Problem 02/13/2020 12:00:00 AM EST eCW1 ([facility]) N40.0 Benign prostatic hypertrophy without out flow obstruction Benign prostatic hyperplasia without lower urinary tract symptoms Problem 02/12 12:00:00 AM EST eCW1 ([facility]) I25.10 [id number] Coronary artery dise ase involving rampart heart, angina presence unspecified, unspecified vessel or lesion type Problem 020 12:00:00 AM EDT eCW1 ([facility]) I71.4 [id number] Abdominal aortic aneurysm (AAA) without r upture Problem 01/23/2020 12:00:00 AM EDT eCW1 ([facility]) I67.9 [id number] Cerebral vascular disease Problem 01/23/2020 12:00:00 AM EDT eCW1 ([facility]) N40.0 [id number] Benign prostatic hyp erplasia, unspecified whether lower urinary tract symptoms present Problem 01/23/2020 12:00:00 AM EDT eCW1 ([facility]) C67.9 [id number] Malignant neoplasm of urinary bladder, un specified site Problem 01/22/2020 12:00:00 AM EDT eCW1 ([facility]) G62.9 [id number] Peripheral polyneuropathy Problem 01/22/2020 12:00:00 AM EDT eCW1 ([facility]) I10 [id number] Essential hypertension Problem 01/22/2020 12 :00:00 AM EDT eCW1 ([facility]) R13.10 [id number] Esophageal dysphagia Problem 01/22/2020 12:0 0:00 AM EDT eCW1 ([facility]) E03.8 [id number] Other specified hypothyroidism Problem 01/22/2020 12:00:00 AM EDT eCW1 ([facility]) C61 [id number] Prostate cancer Problem 01/22/2020 12:00:00 AM EDT eCW1 ([facility]) Surgeries/Procedures Procedure Description Date Indications Data Source(s) OFFICE OUTPATIENT VISIT 25 MINUTES 01/14/2021 12:00:00 AM EDT MED[facility] ([facility]) Chronic Care Management Services Ea Addl 20 Min 2020 12:00:00 AM EDT MED[facility] ([facility]) Chronic Care MGMT 20 Mins Clinical Staff Time Per Calendar M ont 12/26/2020 12:00:00 AM EDT [facility] ([facility]) DEBRIDEMENT NAIL ANY METHOD 6/> 12/14/2020 12:00:00 AM EDT MED[facility] ([facility] OFFICE OUTPATIENT VISIT 25 MINUTES 12/13/2020 12:00:00 AM EDT [facility] ([facility] ) OFFICE OUTPATIENT VISIT 25 MINUTES 12/07/2020 12:00:00 AM EDT MED[facility] ([facility]) INTERROGATION EVAL REMOTE </90 D 1/2/ROCKET MOTOR TESTER LEAD PM 12/05 12:00:00 AM EDT [facility] ([facility]) INTERROGATION EVAL REMOTE </90 D 1/2/> LD CVDFB 2020 12:00:00 AM EDT MED[facility] ([facility]) Chronic Care MGMT 20 Mins Clinical Staff Time Per Calendar M [facility] 11/13/2020 12:00:00 AM EDT [facility] ([facility]) Trans Care SRV W/I 14D Of DC, Comm W/I 2 Dys Med Rec 11/09/2020 12:00:00 AM EDT MEDENT ([facility] ) OFFICE OUTPATIENT VISIT 25 MINUTES 11/02/2020 12:00:00 AM EDT MED[facility] ([facility]) Chronic Care MGMT 20 Mins Clinical Staff Time Per Calendar M [facility] 10/25/2020 12:00:00 AM EDT MED[facility] ([facility]) Med: Lidocaine Jelly 2% 6ml Intravesically (Glydo) 09/24/2020 12:00:00 AM EDT eCW1 ([facility]) Chronic Care MGMT 20 Mins Clinical Staff Time Per Calendar M [facility] 09/17/2020 12:00:00 AM EDT MED[facility] ([facility]) ECG ROUTINE ECG W/LEAST 12 LDS W/I&R 09/12/2020 12:00: 00 AM EDT MED[facility] ([facility]) OFFICE OUTPATIENT VISIT 25 MINUTES 09/12/2020 12:00:00 AM EDT MED[facility] ([facility]) Aggarwal Cre SRV W/I 7 Days Of DC, Comm W/I 2 Dys Med Rec 09/07/2020 12:00:00 AM EDT MEDENT ([facility] ) PROGRAM EVAL IMPLANTABLE IN PERSN DUAL LD PACER 2020 12:00:00 AM EDT MED[facility] ([facility]) Diabetic Foot Exam 09/04/2020 12:00:00 AM EDT MED[facility] ([facility]) DEBRIDEMENT NAIL ANY METHOD 6/> 09/04/2020 12:00:00 AM EDT [facility] ([facility] FALLS RISK ASSESSMENT DOCUMENTED 09/04/2020 12:00:00 A M EDT MED[facility] ([facility] OFFICE OUTPATIENT NEW 30 MINUTES 09/04/2020 12:00:00 A M EDT [facility] ([facility] OFFICE OUTPATIENT VISIT 25 MINUTES 08/21/2020 12:00:00 AM EDT MED[facility] ([facility]) Chronic Care MGMT 20 Mins Clinical Staff Time Per Calendar M [facility] 08/17/2020 12:00:00 AM EDT MED[facility] ([facility]) OFFICE OUTPATIENT VISIT 5 MINUTES 07/26/2020 12:00:00 AM EDT MED[facility] ([facility]) Chronic Care MGMT 20 Mins Clinical Staff Time Per Calendar M [facility] 07/16/2020 12:00:00 AM EDT [facility] ([facility]) OFFICE OUTPATIENT VISIT 5 MINUTES 07/12/2020 12:00:00 AM EDT MED[facility] ([facility]) OFFICE OUTPATIENT NEW 45 MINUTES 07/10/2020 12:00:00 A M EDT MED[facility] ([facility], ) Trans Care SRV W/I 14D Of DC, Comm W/I 2 Dys Med Rec 07/09/2020 12:00:00 AM EDT MED[facility] ([facility] ) Chronic Care Management Services Ea Addl 20 Min 2020 12:00:00 AM EST MED[facility] ([facility]) Chronic Care MGMT 20 Mins Clinical Staff Time Per Calendar M ont 06/13/2020 12:00:00 AM EST [facility] ([facility]) ECG ROUTINE ECG W/LEAST 12 LDS W/I&R 06/06/2020 12:00: 00 AM EST MED[facility] ([facility]) PROGRAM EVAL IMPLANTABLE IN PERSN DUAL LD PACER 2020 12:00:00 AM EST [facility] ([facility]) OFFICE OUTPATIENT VISIT 25 MINUTES 06/06/2020 12:00:00 AM EST [facility] ([facility]) OFFICE OUTPATIENT VISIT 5 MINUTES 05/03/2020 12:00:00 AM EST MED[facility] ([facility]) Chronic Care Management Services Ea Addl 20 Min 2020 12:00:00 AM EST MED[facility] ([facility]) Chronic Care MGMT 20 Mins Clinical Staff Time Per Calendar M ont 04/27/2020 12:00:00 AM EST [facility] ([facility]) ECHO TTHRC R-T 2D W/WOM-MODE COMPL SPEC&COLR DOP 03/29 12:00:00 AM EST MED[facility] ([facility]) Bronchospasm Evaluation 03/21/2020 12:00:00 AM EST MED[facility] ([facility], ) Maximum Breathing Capacity, Maximal Voluntary Ventilation 03/21/2020 12:00:00 AM EST MED[facility] ([facility] Plethysmography Determination Lung Volumes & Per Airway Resi st 03/21/2020 12:00:00 AM EST MED[facility] ([facility] ) DIFFUSING CAPACITY 03/21/2020 12:00:00 AM EST MED[facility] ([facility], ) Spirometry 03/20/2020 12:00:00 AM EST M EDENT ([facility], ) ECG ROUTINE ECG W/LEAST 12 LDS W/I&R 02/22/2020 12:00: 00 AM EST MED[facility] ([facility]) PROGRAM EVAL IMPLANTABLE IN PERSN DUAL LD PACER 2019 12:00:00 AM EST MED[facility] ([facility]) Results ID Date Data Source [id number] 01/14/2021 03:33:00 PM EDT MED[facility] ([facility]) Name Value Range Interpretation Code Description Data Anila rce(s) Supporting Document(s) Leukocytes [#/volume] in Blood by Automated count 6.7 x10*3/UL 4.1-10 .9 MED[facility] ([facility]) NOTE: CBC VERIFIED Hematocrit [Volume Fraction] of Blood by Automated count 28.2 % 3 7.0-51.0 [facility] ([facility] Erythrocytes [#/volume] in Blood by Automated count 3.32 x10*6/UL 4.2 0-6.30 [facility] ([facility]) Hemoglobin [Mass/volume] in Blood 9.6 g/dL 12.0-18.0 [facility] ([facility]) MCV 84.9 fL 80.0-97.0 MEDENT ([facility]) MCH 29.0 pg 26.0-32.0 MED[facility] ([facility]) MCHC 34.2 g/dL 31.0-38.0 [facility] ([facility]) Erythrocyte distribution width [Ratio] by Automated count 14.4 % 11.6-13.7 [facility] ([facility]) Platelets [#/volume] in Blood by Automated count 317 x10*3/UL 140-440 [facility] ([facility]) MPV 8.2 FL 7.8-11.0 [facility] Lymph % 14.7 % 10.0-58.5 MED[facility] ([facility]) Lymph # 1.0 x10*3/UL 0.6-4.1 [facility] ([facility]) Neut % 80.5 % 37.0-92.0 MED[facility] ([facility]) Mid % 4.8 % 1.7-9.3 [facility] Neut # 5.4 x10*3/UL 2.0-7.8 [facility] ([facility]) Mid # 0.3 x10*3/UL 0.1-0.6 [facility] ([facility]) ID Date Data Source [id number] 01/14/2021 03:33:00 PM EDT MEDENT ([facility]) Name Value Range Interpretation Code Description Data Anila rce(s) Supporting Document(s) Thyrotropin [Units/volume] in Serum or Plasma by Detec tion limit <= 0.05 mIU/L 3.74 uIU/mL 0.36-3.74 MEDENT ([facility] ) ID Date Data Source [id number] 01/14/2021 03:33:00 PM EDT MED[facility] ([facility]) Name Value Range Interpretation Code Description Data Anila rce(s) Supporting Document(s) Glucose [Mass/volume] in Serum or Plasma 132 mg/dL 74-99 MED[facility] ([facility]) 100-125 mg/dL PRE-DIABETES/FASTING >126 mg/dL DIABETES/FASTING Urea nitrogen [Mass/volume] in Serum or Plasma 27 mg/dL 7-18 [facility] ([facility]) Creatinine 1.8 mg/dL 0.6-1.3 MED[facility] ([facility]) Sodium [Moles/volume] in Serum or Plasma 143 meq/L 136-145 MED[facility] ([facility]) Potassium [Moles/volume] in Serum or Plasma 3.9 meq/L 3.5-5.1 [facility] ([facility]) Chloride [Moles/volume] in Serum or Plasma 105 meq/L 98-107 [facility] ([facility]) Carbon dioxide, total [Moles/volume] in Serum or Plasma 29 meq/L 21 -32 [facility] ([facility]) Calcium [Mass/volume] in Serum or Plasma 8.8 mg/dL 8.5-10.1 [facility] ([facility]) Glomerular filtration rate/1.73 sq M pre dicted among non-blacks [Volume Rate/Area] in Serum or Plasma by Creatinine-based formula (MDRD) 36 mL/min MEDENT ([facility]) Glomerular filtration rate/1.73 sq M pre dicted among blacks [Volume Rate/Area] in Serum or Plasma by Creatinine-based formula (MDRD) 43 mL/min MEDENT ([facility]) <content>CHRONIC KIDNEY DISEASE STAGING PER NKF</content>
<content></content>
<content>STAGE I & II GFR >= 60 NORMAL TO MILDLY DECREASED</content>
<content>STAGE III GFR 30-59 MODERATELY DECREASED</content>
<content>STAGE IV GFR 15-29 SEVERELY DECREASED</content>
<content>STAGE V GFR <15 VERY LITTLE GFR LEFT</content>
<content>ESRD GFR <15 ON WHITE SUGAR SYRUP OPERATOR</content>
<content></content> ID Date Data Source [id number] 01/14/2021 03:33:00 PM EDT MEDENT ([facility]) Name Value Range Interpretation Code Description Data Anila rce(s) Supporting Document(s) Natriuretic peptide B [Mass/volume] in Serum or Plasma 651.0 pg/mL 0.0-100.[address] [facility] ([facility]) ID Date Data Source [id number] 12/07/2020 02:12:00 PM EDT [facility] ([facility]) Name Value Range Interpretation Code Description Data Anila rce(s) Supporting Document(s) Ferritin [Mass/volume] in Serum or Plasma 219 ng/mL 26-388 MED[facility] ([facility]) <content>note:<nlbl:[email or web address]> </content>
<content></content> ID Date Data Source [id number] 12/07/2020 02:12:00 PM EDT [facility] ([facility]) Name Value Range Interpretation Code Description Data Anila rce(s) Supporting Document(s) Iron (Fe) 63 ug/dL 65-175 [facility]) Total Iron Binding Capacity 220 ug/dL 250-450 [facility] ([facility]) Percent Saturation 28.6 % 19.7-50.0 MED[facility] ([facility]) ID Date Data Source [id number] 12/07/2020 02:10:00 PM EDT MEDENT ([facility]) Name Value Range Interpretation Code Description Data Anila rce(s) Supporting Document(s) Thyrotropin [Units/volume] in Serum or Plasma by Detec tion limit <= 0.05 mIU/L 5.46 uIU/mL 0.36-3.74 MED[facility] ([facility] ) ID Date Data Source [id number] 12/07/2020 02:10:00 PM EDT MEDENT ([facility]) Name Value Range Interpretation Code Description Data Anila rce(s) Supporting Document(s) Glucose [Mass/volume] in Serum or Plasma 118 mg/dL 74-99 MED[facility] ([facility]) 100-125 mg/dL PRE-DIABETES/FASTING >126 mg/dL DIABETES/FASTING Urea nitrogen [Mass/volume] in Serum or Plasma 35 mg/dL 7-18 [facility] ([facility]) Creatinine 1.8 mg/dL 0.6-1.3 [facility] Sodium [Moles/volume] in Serum or Plasma 141 meq/L 136-145 MED[facility] ([facility]) Carbon dioxide, total [Moles/volume] in Serum or Plasma 31 meq/L 21 -32 [facility] ([facility]) Chloride [Moles/volume] in Serum or Plasma 106 meq/L 98-107 [facility] ([facility]) Potassium [Moles/volume] in Serum or Plasma 4.2 meq/L 3.5-5.1 [facility] ([facility]) Calcium [Mass/volume] in Serum or Plasma 9.2 mg/dL 8.5-10.1 [facility] ([facility]) Alkaline phosphatase isoenzyme [Units/volume] in Serum or Pl asma 105 mg/dL 46-116 [facility] ([facility]) Aspartate aminotransferase [Enzymatic activity/volume] in Serum or Plasma 20 U/L 15-37 MED[facility] ([facility] ) Total Bilirubin 0.4 mg/dL 0.2-1.0 MEDENT ([facility]) Alanine aminotransferase [Enzymatic activity/volume] in Seru m or Plasma 18 U/L 12-78 MED[facility] ([facility]) Proteinase 3 Ab [Units/volume] in Serum 7.8 g/dL 6.4-8.2 [facility] ([facility]) Albumin [Mass/volume] in Serum or Plasma 2.8 g/dL 3.4-5.0 [facility] ([facility]) A/G Ratio 0.56 CALC 1.00-1.90 MEDENT ([facility]) Glomerular filtration rate/1.73 sq M pre dicted among non-blacks [Volume Rate/Area] in Serum or Plasma by Creatinine-based formula (MDRD) 36 mL/min [facility] ([facility]) Glomerular filtration rate/1.73 sq M pre dicted among blacks [Volume Rate/Area] in Serum or Plasma by Creatinine-based formula (MDRD) 43 mL/min [facility] ([facility]) <content>CHRONIC KIDNEY DISEASE STAGING PER NKF</content>
<content></content>
<content>STAGE I & II GFR >= 60 NORMAL TO MILDLY DECREASED</content>
<content>STAGE III GFR 30-59 MODERATELY DECREASED</content>
<content>STAGE IV GFR 15-29 SEVERELY DECREASED</content>
<content>STAGE V GFR <15 VERY LITTLE GFR LEFT</content>
<content>ESRD GFR <15 ON WHITE SUGAR SYRUP OPERATOR</content>
<content></content> ID Date Data Source [id number] 12/07/2020 02:10:00 PM EDT MEDENT ([facility]) Name Value Range Interpretation Code Description Data Anila rce(s) Supporting Document(s) Magnesium 1.7 mg/dL 1.8-2.4 MEDENT ([facility]) Natriuretic peptide B [Mass/volume] in Serum or Plasma 568.0 pg/mL 0.0-100.0 [facility] ([facility]) ID Date Data Source [id number] 12/07/2020 02:10:00 PM EDT MED[facility] ([facility]) Name Value Range Interpretation Code Description Data Anila rce(s) Supporting Document(s) Leukocytes [#/volume] in Blood by Automated count 6.7 x10*3/UL 4.1-10 .9 [facility] ([facility]) NOTE: CBC VERIFIED Erythrocytes [#/volume] in Blood by Automated count 3.37 x10*6/UL 4.2 0-6.30 [facility] ([facility]) Hematocrit [Volume Fraction] of Blood by Automated count 29.3 % 3 7.0-51.0 [facility] ([facility]) Hemoglobin [Mass/volume] in Blood 10.2 g/dL 12.0-18.0 [facility] ([facility]) MCV 87.0 fL 80.0-97.0 [facility] MCH 30.2 pg 26.0-32.0 [facility] ([facility]) MCHC 34.7 g/dL 31.0-38.0 MED[facility] ([facility]) Platelets [#/volume] in Blood by Automated count 241 x10*3/UL 140-440 [facility] ([facility]) Erythrocyte distribution width [Ratio] by Automated count 14.9 % 11.6-13.7 [facility] ([facility]) MPV 8.6 FL 7.8-11.0 [facility] Lymph % 22.7 % 10.0-58.5 [facility] Mid % 6.1 % 1.7-9.3 [facility] Neut % 71.2 % 37.0-92.0 [facility] Lymph # 1.5 x10*3/UL 0.6-4.1 [facility] ([facility]) Mid # 0.4 x10*3/UL 0.1-0.6 [facility] ([facility]) Neut # 4.8 x10*3/UL 2.0-7.8 [facility] ([facility]) ID Date Data Source [id number] 12/07/2020 01:05:00 PM EDT [facility] Name Value Range Interpretation Code Description Data Anila rce(s) Supporting Document(s) Magnesium Level 1.7 [facility] ([facility] Thyroid Stimulating Hormone 5.46 ME DENT ([facility]) Natriuretic peptide.B prohormone N-Terminal [Mass/volu me] in Serum or Plasma 568.0 [facility] ([facility]) ID Date Data Source [id number] 12/07/2020 01:05:00 PM EDT [facility] ([facility]) Name Value Range Interpretation Code Description Data Anila rce(s) Supporting Document(s) Albumin [Mass/volume] in Serum or Plasma 2.8 [facility] ([facility]) Alanine aminotransferase [Enzymatic activity/volume] in Serum or Pl asma 18 MED[facility] ([facility]) Carbon dioxide, total [Moles/volume] in Serum or Plasma 31 [facility] ([facility]) Calcium [Mass/volume] in Serum or Plasma 9.2 [facility] ([facility]) Chloride [Moles/volume] in Serum or Plasma 106 [facility] ([facility]) Alkaline phosphatase [Enzymatic activity/volume] in Serum or Plasma 1 05 [facility] ([facility]) Potassium [Moles/volume] in Serum or Plasma 4.2 [facility] ([facility]) Protein [Mass/volume] in Serum or Plasma 7.6 [facility] ([facility]) Urea nitrogen [Mass/volume] in Serum or Plasma 35 [facility] ([facility]) Aspartate aminotransferase [Enzymatic activity/volume] in Serum or Plasma 20 [facility] ([facility]) Sodium 141 [facility] Creatinine For GFR 1.8 [facility] ([facility] Glucose 118 74-99 [facility] ID Date Data Source [id number] 12/07/2020 01:05:00 PM EDT [facility] ([facility]) Name Value Range Interpretation Code Description Data Anila rce(s) Supporting Document(s) Red Blood Count 3.37 4.20-6.30 [facility] ([facility] White Blood Count 6.7 4.1-10.9 [facility] ([facility]) Hemoglobin 10.2 12.0-18.0 [facility] ([facility]) Platelets 241 140-440 [facility] Hematocrit 29.3 37.0-51.0 [facility] ([facility]) ID Date Data Source [id number] 11/30/2020 04:10:00 PM EDT [facility] ([facility]) Name Value Range Interpretation Code Description Data Anila rce(s) Supporting Document(s) Appearance, Urine RFX Laboratory test result [facility] ([facility]) Color, Urine RFX Laboratory test result [facility]) PH,Urine RFX 8.0 units 5.0-9.[address] [facility] ([facility]) Specific [place] Ur Auto RFX 1.021 1.002-1.[address] [facility] ([facility]) Protein, Urine Auto RFX Laboratory test result [facility] ([facility]) Glucose, Urine (Ua) Auto RFX Laboratory test result [facility] ([facility]) Ketone, Urine Auto RFX Laboratory test result [facility] ([facility]) Urobilinogen, Urine Auto RFX 0.2 mg/dL 0.0-2.0 [facility] ([facility]) Nitrite, Urine Auto RFX Laboratory test result [facility] ([facility]) Bilirubin, Urine Auto RFX Laboratory test result [facility] ([facility]) Leukocyte Esterase Ur Auto RFX Laboratory test result [facility] ([facility]) Blood, Urine Blood RFX Laboratory test result [facility] ([facility]) WBC, Urine Auto RFX 0 /HPF 0-3 [facility] ([facility]) RBC, Urine Auto RFX 4 /HPF 0-3 [facility] ([facility]) Bacteria, Urine Auto RFX Laboratory test result [facility] ([facility]) Hyaline Cast, Urine Auto RFX 0 /LPF 0-1 M ED[facility] ([facility]) Squam Epithelial Cell Ur Aurfx 0 /HPF 0-6 [facility] ([facility]) ID Date Data Source [id number] 11/30/2020 04:10:00 PM EDT [facility] ([facility]) Name Value Range Interpretation Code Description Data Anila rce(s) Supporting Document(s) Influenza A Amplification Laboratory test result [facility] ([facility]) Negative results do not preclude influen za or RSV virus infection and should not be used as the sole basis for treatment or other patient management decisions. Influenza B Amplification Laboratory test result [facility] ([facility]) Negative results do not preclude influen za or RSV virus infection and should not be used as the sole basis for treatment or other patient management decisions. RSV Amplification Laboratory test result [facility] ([facility]) Negative results do not preclude influen za or RSV virus infection and should not be used as the sole basis for treatment or other patient management decisions. Laboratory test finding (navigational concept) Laboratory test result [facility] ([facility]) A false negative result may occur if [...] pathogens. DISCLAIMER: Testing was performed using the [employer] SARS-CoV-2 test. This test was developed and its performance characteristics determined by [employer]. This test has not been FDA cleared [...] or revoked sooner. ID Date Data Source [id number] 11/30/2020 04:10:00 PM EDT [facility] Name Value Range Interpretation Code Description Data Anila rce(s) Supporting Document(s) SARS coronavirus 2 RNA [Presence] in Res piratory specimen by HAIR with probe detection NEGATIVE [facility] This lab was ordered by [facility] a nd reported by [facility]. ID Date Data Source [id number] 11/30/2020 04:10:00 PM EDT [facility] Name Value Range Interpretation Code Description Data Anila rce(s) Supporting Document(s) SARS-CoV-2 (COVID 19) NEGATIVE - SARS-CoV-2 (COVID19) [facility] This lab was ordered by [facility] a nd reported by [facility]. ID Date Data Source [id number] 11/30/2020 11:09:00 AM EDT [facility] ([facility]) Name Value Range Interpretation Code Description Data Anila rce(s) Supporting Document(s) Laboratory test finding (navigational concept) 141 meq/L 136-145 [facility] ([facility]) Laboratory test finding (navigational concept) 33.0 % 38.0-51.0 [facility] ([facility]) Laboratory test finding (navigational concept) 108 mg/dL 70-105 [facility] ([facility]) Laboratory test finding (navigational concept) 4.6 mg/dL 4.5-5.3 [facility] ([facility]) Laboratory test finding (navigational concept) 4.7 meq/L 3.5-5.1 [facility] ([facility]) Laboratory test finding (navigational concept) 28.0 MM/L 23.0-27.0 [facility] ([facility]) Laboratory test finding (navigational concept) 101 meq/L 98-109 MEDENT ([facility]) Laboratory test finding (navigational concept) 1.4 mg/dL 0.6-1.3 [facility] ([facility]) Laboratory test finding (navigational concept) 28 mg/dL 8-26 [facility] ([facility]) ID Date Data Source [id number] 11/30/2020 10:52:00 AM EDT [facility] ([facility]) Name Value Range Interpretation Code Description Data Anila rce(s) Supporting Document(s) White Blood Count 9.2 10 4.0-10.0 MED[facility] ([facility]) Hemoglobin 11.1 g/dL 13.5-17.5 [facility] Red Blood Count 3.75 10 4.30-6.10 [facility] ([facility]) Hematocrit 34.8 % 42.0-52.0 [facility] Mean Corpuscular Volume 92.8 fl 80.0-96.0 [facility] ([facility]) Mean Corpuscular Hemoglobin 29.6 pg 27.0-33.0 ME DENT ([facility]) Mean Corpuscular HGB Conc 31.9 g/dL 32.0-36.5 MEDE NT ([facility]) Platelet Count, Automated 249 10 150-450 MEDE NT ([facility]) Red Cell Distribution Width 15.8 % 11.5-14.5 ME DENT ([facility]) Lymph % 16.9 % 24.0-44.0 [facility]) Neutrophils % 72.3 % 36.0-66.0 [facility] Eos % 2.8 % 0.0-3.0 [facility]) Barnes % 7.2 % 2.0-8.0 [facility]) Baso % 0.5 % 0.0-1.0 [facility]) Immature Granulocyte % 0.3 % 0-3.0 [facility] ([facility]) Nucleated Red Blood Cell % 0.0 % 0-0 MED ENT ([facility]) Neutrophils # 6.7 10 1.5-8.5 [facility] ([place] [facility] Lymph # 1.6 10 1.5-5.0 [facility] Barnes # 0.7 10 0.0-0.8 [facility]) Eos # 0.3 10 0.0-0.5 [facility]) Baso # 0.1 10 0.0-0.2 [facility]) ID Date Data Source [id number] 11/30/2020 10:52:00 AM EDT [facility] ([facility]) Name Value Range Interpretation Code Description Data Anila rce(s) Supporting Document(s) Ast/Sgot 34 U/L 7-37 [facility] [facility] Alt/SGPT 27 U/L 12-78 MED[facility] ([facility]) Alkaline Phosphatase 139 U/L 45-117 [facility] ([facility]) Bilirubin,Total 0.6 mg/dL 0.2-1.0 [facility] ([facility]) Bilirubin,Direct 0.2 mg/dL 0.0-0.2 [facility] ([facility]) Albumin 2.7 GM/DL 3.2-5.2 [facility] ([facility]) Total Protein 7.8 GM/DL 6.4-8.2 [facility] ([facility]) Albumin/Globulin Ratio 0.5 [facility] ([facility]) ID Date Data Source [id number] 11/30/2020 10:52:00 AM EDT [facility] ([facility]) Name Value Range Interpretation Code Description Data Anila rce(s) Supporting Document(s) Lipoprotein lipase [Enzymatic activity/volume] in Serum or P lasma 172 U/L 73-393 [facility] ([facility]) <content>note:<nlbl:demographic_changed></content>
<content>note:<nlbl:demog raphic_changed></content>
<content>note:<nlbl:demographic_changed></content>
<content></content> Natriuretic peptide.B prohormone N-Terminal [Mass/volu me] in Serum or Plasma 1331 pg/mL [facility] ([facility] ) <content>note:<nlbl:demographic_changed></content>
<content>note:<nlbl:demog raphic_changed></content>
<content>note:<nlbl:demographic_changed></content>
<content></content> ID Date Data Source [id number] 11/02/2020 09:17:00 AM EDT [facility] ([facility]) Name Value Range Interpretation Code Description Data Anila rce(s) Supporting Document(s) Magnesium [Mass/volume] in Serum or Plasma 2.2 mg/dL 1.8-2.4 [facility] ([facility]) <content>note:<nlbl:demographic_changed> </content>
<content></content> ID Date Data Source [id number] 11/02/2020 09:17:00 AM EDT [facility] ([facility]) Name Value Range Interpretation Code Description Data Anila rce(s) Supporting Document(s) Glucose, Fasting 114 mg/dL 70-100 [facility] ([facility]) Blood Urea Nitrogen 21 mg/dL 7-18 [facility] ([facility]) Glomerular Filtration Rate 58.7 MED ENT ([facility]) <content>Units are mL/min/1.73 m2</content>
<content></content>
<content>Chronic Kidney Disease Staging per NKF:</content>
<content></content>
<content>Stage I & II GFR >=60 Normal to Mildly Decreased</content>
<content>Stage III GFR 30- 59 Moderately Decreased</content>
<content>Stage IV GFR 15-29 Severely Decreased</content>
<content>Stage V GFR <15 Very Little GFR Left</content>
<content>ESRD GFR <15 on WHITE SUGAR SYRUP OPERATOR</content>
<content></content> Creatinine For GFR 1.24 mg/dL 0.70-1.30 [facility] ([facility]) Sodium Level 143 meq/L 136-145 [facility] ([facility]) Potassium Serum 5.1 meq/L 3.5-5.1 [facility] ([facility]) Testing was performed on an icteric spec imen. Testing was performed on a SLIGHTLY hemolyzed specimen. Suggest recollection of specimen for more accurate test results. Chloride Level 108 meq/L 98-107 [facility] Carbon Dioxide Level 28 meq/L 21-32 [facility] ([facility] Anion Gap 7 meq/L 8-16 [facility] Calcium Level 9.5 mg/dL 8.8-10.2 [facility] Alt/SGPT 28 U/L 12-78 [facility] Ast/Sgot 43 U/L 7-37 [facility] Bilirubin,Total 0.5 mg/dL 0.2-1.0 [facility] ([facility]) Alkaline Phosphatase 138 U/L 45-117 [facility] ([facility] Total Protein 7.9 GM/DL 6.4-8.2 [facility] ([facility]) Albumin/Globulin Ratio 0.7 [facility] ([facility]) Albumin 3.2 GM/DL 3.2-5.2 [facility] ([facility] [place]) ID Date Data Source [id number] 10/19/2020 11:11:00 PM EDT [facility] Name Value Range Interpretation Code Description Data Anila rce(s) Supporting Document(s) SARS coronavirus 2 RNA [Presence] in Res piratory specimen by HAIR with probe detection NEGATIVE [facility] This lab was ordered by [facility] a nd reported by [facility]. ID Date Data Source [id number] 09/27/2020 03:27:00 PM EDT [facility] ([facility]) Name Value Range Interpretation Code Description Data Anila rce(s) Supporting Document(s) Bacteria identified in Wound shallow by Aerobe culture Laborator y test result MEDENT ([facility]) <content>FULL REPORT IN LAB NOTES (eCW [...]
<content>CLIDAMYCIN SENSITIVE.</content>
<content></content> ID Date Data Source [id number] 09/27/2020 02:48:00 PM EDT [facility] ([facility]) Name Value Range Interpretation Code Description Data Anila rce(s) Supporting Document(s) C reactive protein [Mass/volume] in Serum or Plasma by High sensitivity method 0.46 mg/dL 0.00-0.30 [facility] ([facility] ) <content>note:<nlbl:demographic_changed> </content>
<content></content> ID Date Data Source [id number] 09/27/2020 02:48:00 PM [address] [facility]) Name Value Range Interpretation Code Description Data Anila rce(s) Supporting Document(s) Urea nitrogen [Mass/volume] in Serum or Plasma 35 mg/dL 7-18 MED[facility] ([facility]) NOTE: BUN,CREAT,ALB,T.PROTEIN VERIFIED Glucose [Mass/volume] in Serum or Plasma 127 mg/dL 74-99 [facility] ([facility]) 100-125 mg/dL PRE-DIABETES/FASTING >126 mg/dL DIABETES/FASTING Creatinine 1.4 mg/dL 0.6-1.3 [facility] ([facility]) Sodium [Moles/volume] in Serum or Plasma 140 meq/L 136-145 [facility] ([facility]) Potassium [Moles/volume] in Serum or Plasma 3.7 meq/L 3.5-5.1 [facility] ([facility]) Calcium [Mass/volume] in Serum or Plasma 9.3 mg/dL 8.5-10.1 [facility] ([facility]) Carbon dioxide, total [Moles/volume] in Serum or Plasma 35 meq/L 21 -32 [facility] ([facility]) Chloride [Moles/volume] in Serum or Plasma 102 meq/L 98-107 [facility] ([facility]) Alkaline phosphatase isoenzyme [Units/volume] in Serum or Pl asma 125 mg/dL 46-116 [facility] ([facility]) NOTE: RESULT VERIFIED. Total Bilirubin 0.6 mg/dL 0.2-1.0 [facility] ([facility]) Albumin [Mass/volume] in Serum or Plasma 3.2 g/dL 3.4-5.0 [facility] ([facility]) Aspartate aminotransferase [Enzymatic activity/volume] in Serum or Plasma 32 U/L 15-37 [facility] ([facility] ) Alanine aminotransferase [Enzymatic activity/volume] in Seru m or Plasma 21 U/L 12-78 [facility] ([facility]) Proteinase 3 Ab [Units/volume] in Serum 8.4 g/dL 6.4-8.2 [facility] ([facility]) Glomerular filtration rate/1.73 sq M pre dicted among non-blacks [Volume Rate/Area] in Serum or Plasma by Creatinine-based formula (MDRD) 48 mL/min [facility] ([facility]) A/G Ratio 0.62 CALC 1.00-1.90 [facility] [facility] Glomerular filtration rate/1.73 sq M pre dicted among blacks [Volume Rate/Area] in Serum or Plasma by Creatinine-based formula (MDRD) 58 mL/min [facility] ([facility]) <content>CHRONIC KIDNEY DISEASE STAGING PER NKF</content>
<content></content>
<content>STAGE I & II GFR >= 60 NORMAL TO MILDLY DECREASED</content>
<content>STAGE III GFR 30-59 MODERATELY DECREASED</content>
<content>STAGE IV GFR 15-29 SEVERELY DECREASED</content>
<content>STAGE V GFR <15 VERY LITTLE GFR LEFT</content>
<content>ESRD GFR <15 ON WHITE SUGAR SYRUP OPERATOR</content>
<content></content> ID Date Data Source [id number] 09/27/2020 02:48:00 PM EDT [facility] ([facility]) Name Value Range Interpretation Code Description Data Anila rce(s) Supporting Document(s) Leukocytes [#/volume] in Blood by Automated count 6.5 x10*3/UL 4.1-10 .9 [facility] ([facility]) NOTE: CBC VERIFIED Hematocrit [Volume Fraction] of Blood by Automated count 34.1 % 3 7.0-51.0 [facility] ([facility]) Hemoglobin [Mass/volume] in Blood 11.6 g/dL 12.0-18.0 [facility] ([facility]) Erythrocytes [#/volume] in Blood by Automated count 3.88 x10*6/UL 4.2 0-6.30 [facility] ([facility]) MCV 87.9 fL 80.0-97.0 [facility] [facility]) MCH 30.0 pg 26.0-32.0 [facility]) Erythrocyte distribution width [Ratio] by Automated count 14.5 % 11.6-13.7 [facility] ([facility]) Platelets [#/volume] in Blood by Automated count 241 x10*3/UL 140-440 [facility] ([facility]) MCHC 34.1 g/dL 31.0-38.0 [facility]) MPV 8.3 FL 7.8-11.0 [facility]) Mid % 7.8 % 1.7-9.3 [facility]) Lymph % 40.0 % 10.0-58.5 [facility]) Mid # 0.5 x10*3/UL 0.1-0.6 [facility] ([facility]) Neut % 52.2 % 37.0-92.0 [facility]) Lymph # 2.6 x10*3/UL 0.6-4.1 [facility] ([facility]) Neut # 3.4 x10*3/UL 2.0-7.8 [facility] ([facility]) ID Date Data Source NON BRICKLAYER'S ASSISTANT CYTOLOGY REQ FOR SERVI 09/24/2020 12:00:00 AM EDT eC W1 ([facility]) Name Value Range Interpretation Code Description Data Anila rce(s) Supporting Document(s) URINE eCW1 ([facility]) ID Date Data Source [id number] 09/20/2020 03:43:00 PM EDT MEDENT ([facility]) Name Value Range Interpretation Code Description Data Anila rce(s) Supporting Document(s) Abscess Culture Laboratory test result [facility] ([facility]) Rx Doxycycline Gram Stain Laboratory test result [facility] ([facility]) Rx Doxycycline ID Date Data Source [id number] 09/07/2020 11:58:00 AM EDT MED[facility] ([facility]) Name Value Range Interpretation Code Description Data Anila rce(s) Supporting Document(s) Glucose [Mass/volume] in Serum or Plasma 109 mg/dL 74-99 [facility] ([facility]) 100-125 mg/dL PRE-DIABETES/FASTING >126 mg/dL DIABETES/FASTING Urea nitrogen [Mass/volume] in Serum or Plasma 14 mg/dL 7-18 [facility] ([facility]) Creatinine 1.0 mg/dL 0.6-1.3 [facility]) Potassium [Moles/volume] in Serum or Plasma 4.2 meq/L 3.5-5.1 [facility] ([facility]) Sodium [Moles/volume] in Serum or Plasma 141 meq/L 136-145 [facility] ([facility]) Chloride [Moles/volume] in Serum or Plasma 104 meq/L 98-107 [facility] ([facility]) Carbon dioxide, total [Moles/volume] in Serum or Plasma 31 meq/L 21 -32 [facility] ([facility]) Calcium [Mass/volume] in Serum or Plasma 8.7 mg/dL 8.5-10.1 [facility] ([facility]) Glomerular filtration rate/1.73 sq M pre dicted among non-blacks [Volume Rate/Area] in Serum or Plasma by Creatinine-based formula (MDRD) Laboratory test result [facility] ([facility] ) Glomerular filtration rate/1.73 sq M pre dicted among blacks [Volume Rate/Area] in Serum or Plasma by Creatinine-based formula (MDRD) Laboratory test result [facility] ([facility]) <content>CHRONIC KIDNEY DISEASE STAGING PER NKF</content>
<content></content>
<content>STAGE I & II GFR >= 60 NORMAL TO MILDLY DECREASED</content>
<content>STAGE III GFR 30-59 MODERATELY DECREASED</content>
<content>STAGE IV GFR 15-29 SEVERELY DECREASED</content>
<content>STAGE V GFR <15 VERY LITTLE GFR LEFT</content>
<content>ESRD GFR <15 ON WHITE SUGAR SYRUP OPERATOR</content>
<content></content> ID Date Data Source [id number] 09/07/2020 11:58:00 AM EDT MED[facility] ([facility]) Name Value Range Interpretation Code Description Data Anila rce(s) Supporting Document(s) Hemoglobin [Mass/volume] in Blood 10.5 g/dL 12.0-18.0 [facility] ([facility]) NOTE: RESULT VERIFIED. Erythrocytes [#/volume] in Blood by Automated count 3.53 x10*6/UL 4.2 0-6.30 [facility] ([facility]) Leukocytes [#/volume] in Blood by Automated count 7.9 x10*3/UL 4.1-10 .9 [facility] ([facility]) MCV 87.3 fL 80.0-97.0 MED[facility] ([facility]) MCH 29.7 pg 26.0-32.0 MED[facility] ([facility]) Hematocrit [Volume Fraction] of Blood by Automated count 30.8 % 3 7.0-51.0 [facility] ([facility]) MCHC 34.1 g/dL 31.0-38.0 [facility] ([facility]) Erythrocyte distribution width [Ratio] by Automated count 13.8 % 11.6-13.7 [facility] ([facility]) Platelets [#/volume] in Blood by Automated count 307 x10*3/UL 140-440 [facility] ([facility]) MPV 8.3 FL 7.8-11.0 [facility] ([facility]) Lymph % 13.9 % 10.0-58.5 [facility] ([facility]) Mid % 4.5 % 1.7-9.3 [facility] ([place] [facility]) Lymph # 1.1 x10*3/UL 0.6-4.1 [facility] ([facility]) Neut % 81.6 % 37.0-92.0 [facility] ([place] [facility]) Mid # 0.3 x10*3/UL 0.1-0.6 [facility] ([facility]) Neut # 6.5 x10*3/UL 2.0-7.8 [facility] ([facility]) ID Date Data Source [id number] 09/02/2020 03:31:00 PM EDT [facility] Name Value Range Interpretation Code Description Data Anila rce(s) Supporting Document(s) Albumin [Mass/volume] in Serum or Plasma 2.4 [facility] ([facility]) Calcium [Mass/volume] in Serum or Plasma 8.7 [facility] ([facility]) Alanine aminotransferase [Enzymatic activity/volume] in Serum or Pl asma 52 [facility] ([facility]) Carbon dioxide, total [Moles/volume] in Serum or Plasma 27 [facility] ([facility]) Chloride [Moles/volume] in Serum or Plasma 107 [facility] ([facility]) Protein [Mass/volume] in Serum or Plasma 6.4 [facility] ([facility]) Alkaline phosphatase [Enzymatic activity/volume] in Serum or Plasma 2 11 [facility] ([facility]) Potassium [Moles/volume] in Serum or Plasma 3.9 [facility] ([facility]) Aspartate aminotransferase [Enzymatic activity/volume] in Serum or Plasma 83 [facility] ([facility]) Sodium 140 [facility] ([facility] [place] Urea nitrogen [Mass/volume] in Serum or Plasma 41 [facility] ([facility]) Creatinine For GFR 1.45 [facility] ([facility]) Glucose 122 83-110 [facility] ([facility] [place]) ID Date Data Source [id number] 09/02/2020 03:31:00 PM EDT [facility] Name Value Range Interpretation Code Description Data Anila rce(s) Supporting Document(s) Red Blood Count 3.25 4.00-5.40 [facility] ([facility]) White Blood Count 9.2 5.0-10.0 [facility] ([facility]) Platelets 159 172-450 [facility] Hematocrit 30.5 [facility] ([facility]) Hemoglobin 9.7 [facility] ([facility]) ID Date Data Source [id number] 08/29/2020 11:41:00 AM EDT [facility] ([facility]) Name Value Range Interpretation Code Description Data Anila rce(s) Supporting Document(s) Respiratory Panel Laboratory test result [facility] ([facility] [facility]) This respiratory PCR panel detects Influ artemio [...] - SARS-CoV-2 (COVID19) ID Date Data Source [id number] 08/29/2020 11:41:00 AM EDT [facility] Name Value Range Interpretation Code Description Data Anila rce(s) Supporting Document(s) SARS-CoV-2 (COVID 19) NEGATIVE - SARS-CoV-2 (COVID19) [facility] This lab was ordered by [facility] a nd reported by [facility]. ID Date Data Source [id number] 08/29/2020 09:52:00 AM EDT [facility]) Name Value Range Interpretation Code Description Data Anila rce(s) Supporting Document(s) CPK Creatine Phosphokinase 39 U/L 39-308 MED ENT ([facility]) MB/CK Relative Index 2.56 [facility] ([facility]) <content>DIAGNOSIS CRITERIA</content>
<content>MMB ng/ml Relative Index (RI)</content>
<content>NON-AMI < or = 5 N/A</content>
<content>CANTU ZONE > 5 < or = 4</content>
<content>AMI > 5 > 4</content>
<content></content> CK-MB Value Mass Laboratory test result [facility] ([facility]) Troponin I Laboratory test result [facility] ([facility]) <content>Troponin I Reference Interval f or Siemens [place] LOCI:</content>
<content></content>
<content>99th Percentile= 0.00-0.045 ng/ml</content>
<content></content>
<content>Risk Stratification:</content>
<content><= 0.10 ng/ml Decreased Risk for Adverse Clinical</content>
<content>Events.</content>
<content>0.10-1.50 ng/ml Increased Risk for Adverse Clinical</content>
<content>Events. Evaluation of additional</content>
<content>criterion and/or repeat testing in 2-6</content>
<content>hours is suggested to rule out myocardial</content>
<content>damage.</content>
<content>>= 1.50 ng/ml Indicative of Myocardial Injury.</content>
<content></content> ID Date Data Source [id number] 08/29/2020 09:52:00 AM EDT MED[facility] ([facility]) Name Value Range Interpretation Code Description Data Anila rce(s) Supporting Document(s) Ast/Sgot 32 U/L 7-37 [facility] [facility] Alt/SGPT 25 U/L 12-78 [facility] ([facility]) Alkaline Phosphatase 154 U/L 45-117 [facility] ([facility]) Total Protein 7.3 GM/DL 6.4-8.2 [facility] ([facility]) Bilirubin,Total 1.5 mg/dL 0.2-1.0 MED[facility] ([facility]) Bilirubin,Direct 0.6 mg/dL 0.0-0.2 [facility] ([facility]) Albumin/Globulin Ratio 0.8 [facility] ([facility]) Albumin 3.2 GM/DL 3.2-5.2 [facility] [facility] ID Date Data Source [id number] 08/29/2020 09:52:00 AM EDT [facility] ([facility]) Name Value Range Interpretation Code Description Data Anila rce(s) Supporting Document(s) Glucose, Fasting 110 mg/dL 70-100 [facility] ([facility]) Blood Urea Nitrogen 35 mg/dL 7-18 [facility] ([facility]) Glomerular Filtration Rate 49.0 MED E[facility] ([facility]) <content>Units are mL/min/1.73 m2</content>
<content></content>
<content>Chronic Kidney Disease Staging per NKF:</content>
<content></content>
<content>Stage I & II GFR >=60 Normal to Mildly Decreased</content>
<content>Stage III GFR 30- 59 Moderately Decreased</content>
<content>Stage IV GFR 15-29 Severely Decreased</content>
<content>Stage V GFR <15 Very Little GFR Left</content>
<content>ESRD GFR <15 on WHITE SUGAR SYRUP OPERATOR</content>
<content></content> Creatinine For GFR 1.45 mg/dL 0.70-1.30 [facility] ([facility]) Potassium Serum 4.1 meq/L 3.5-5.1 [facility] ([facility]) Chloride Level 107 meq/L 98-107 MED[facility] ([facility]) Sodium Level 142 meq/L 136-145 [facility] ([facility]) Anion Gap 6 meq/L 8-16 [facility] [facility] Carbon Dioxide Level 29 meq/L 21-32 [facility] Calcium Level 8.4 mg/dL 8.8-10.2 [facility] ([facility]) ID Date Data Source [id number] 08/21/2020 02:33:00 PM EDT MED[facility] ([facility]) Name Value Range Interpretation Code Description Data Anila rce(s) Supporting Document(s) Glucose [Mass/volume] in Serum or Plasma 109 mg/dL 74-99 [facility] ([facility]) 100-125 mg/dL PRE-DIABETES/FASTING >126 mg/dL DIABETES/FASTING Urea nitrogen [Mass/volume] in Serum or Plasma 27 mg/dL 7-18 [facility] ([facility]) Potassium [Moles/volume] in Serum or Plasma 4.7 meq/L 3.5-5.1 [facility] ([facility]) Creatinine 1.3 mg/dL 0.6-1.3 [facility] ([facility] Sodium [Moles/volume] in Serum or Plasma 143 meq/L 136-145 [facility] ([facility]) Calcium [Mass/volume] in Serum or Plasma 9.0 mg/dL 8.5-10.1 [facility] ([facility]) Chloride [Moles/volume] in Serum or Plasma 106 meq/L 98-107 [facility] ([facility]) Carbon dioxide, total [Moles/volume] in Serum or Plasma 30 meq/L 21 -32 [facility] ([facility]) Glomerular filtration rate/1.73 sq M pre dicted among non-blacks [Volume Rate/Area] in Serum or Plasma by Creatinine-based formula (MDRD) 52 mL/min [facility] [facility] services) Glomerular filtration rate/1.73 sq M pre dicted among blacks [Volume Rate/Area] in Serum or Plasma by Creatinine-based formula (MDRD) Laboratory test result [facility] ([facility]) <content>CHRONIC KIDNEY DISEASE STAGING PER NKF</content>
<content></content>
<content>STAGE I & II GFR >= 60 NORMAL TO MILDLY DECREASED</content>
<content>STAGE III GFR 30-59 MODERATELY DECREASED</content>
<content>STAGE IV GFR 15-29 SEVERELY DECREASED</content>
<content>STAGE V GFR <15 VERY LITTLE GFR LEFT</content>
<content>ESRD GFR <15 ON WHITE SUGAR SYRUP OPERATOR</content>
<content></content> ID Date Data Source [id number] 08/21/2020 02:33:00 PM EDT [facility] ([facility]) Name Value Range Interpretation Code Description Data Anila rce(s) Supporting Document(s) Natriuretic peptide B [Mass/volume] in Serum or Plasma 706.0 pg/mL 0.0-100.0 [facility] ([facility]) ID Date Data Source [id number] 08/21/2020 02:33:00 PM EDT [facility] ([facility]) Name Value Range Interpretation Code Description Data Anila rce(s) Supporting Document(s) Leukocytes [#/volume] in Blood by Automated count 5.5 x10*3/UL 4.1-10 .9 [facility] ([facility]) NOTE: CBC VERIFIED Erythrocytes [#/volume] in Blood by Automated count 3.93 x10*6/UL 4.2 0-6.30 [facility] ([facility]) Hematocrit [Volume Fraction] of Blood by Automated count 34.8 % 3 7.0-51.0 [facility] ([facility]) Hemoglobin [Mass/volume] in Blood 11.8 g/dL 12.0-18.0 [facility] ([facility]) MCV 88.4 fL 80.0-97.0 [facility]) MCH 30.2 pg 26.0-32.0 [facility] ([facility]) MCHC 34.1 g/dL 31.0-38.0 [facility] ([facility]) Platelets [#/volume] in Blood by Automated count 170 x10*3/UL 140-440 [facility] ([facility]) MPV 8.8 FL 7.8-11.0 [facility] ([place] [facility]) Erythrocyte distribution width [Ratio] by Automated count 13.9 % 11.6-13.7 [facility] ([facility]) Neut % 63.1 % 37.0-92.0 [facility] Lymph % 29.2 % 10.0-58.5 [facility] ([facility]) Mid % 7.7 % 1.7-9.3 [facility]) Mid # 0.5 x10*3/UL 0.1-0.6 [facility] ([facility]) Lymph # 1.6 x10*3/UL 0.6-4.1 [facility] ([facility]) Neut # 3.4 x10*3/UL 2.0-7.8 [facility] ([facility]) ID Date Data Source [id number] 07/18/2020 09:55:00 AM EDT [facility] Name Value Range Interpretation Code Description Data Anila rce(s) Supporting Document(s) SARS coronavirus 2 RNA [Presence] in Res piratory specimen by HAIR with probe detection NEGATIVE [facility] This lab was ordered by [facility] a nd reported by [facility]. ID Date Data Source URINE CULTURE 07/17/2020 12:00:00 AM EDT eCW1 ([facility]) Name Value Range Interpretation Code Description Data Anila rce(s) Supporting Document(s) URINE CULTURE eCW1 ([facility]) ID Date Data Source UA URINALYSIS 07/17/2020 12:00:00 AM EDT eCW1 ([facility]) Name Value Range Interpretation Code Description Data Anila rce(s) Supporting Document(s) UA URINALYSIS eCW1 ([facility]) ID Date Data Source [id number] 06/29/2020 09:44:00 PM EDT [facility] Name Value Range Interpretation Code Description Data Anila rce(s) Supporting Document(s) SARS coronavirus 2 RNA [Presence] in Res piratory specimen by HAIR with probe detection NEGATIVE [facility] This lab was ordered by [facility] a nd reported by [facility]. ID Date Data Source [id number] 03/20/2020 10:44:00 AM EST [facility] ([facility], ) Name Value Range Interpretation Code Description Data Anila rce(s) Supporting Document(s) FVC-Pred 4.06 L [facility] ([facility], ) PDFReport Laboratory test result [facility] ([facility], ) FVC-LLN 3.07 L [facility] ([facility], ) Fev1-Pred 2.83 L [facility] ([facility], ) FVC-%Pred-Pre 77 L [facility] ([facility], ) FVC-Pre 3.15 L [facility] ([facility]) Fev1-Pre 2.22 L [facility] ([facility], ) Fev1-%Pred-Pre 78 L [facility] ([facility], ) Fev1-LLN 2.00 L [facility] ([facility], ) Fev6-Pre 3.15 L [facility] ([facility], ) Fev6-Pred 3.77 L [facility] ([facility]) Dfd9zok-Lxbx 70 % [facility] ([facility]) Fev6-%Pred-Pre 83 L [facility] ([facility], ) Fev6-LLN 2.81 L [facility] ([facility], ) Fft1mau-Dns 71 % [facility] ([facility]) Sou2xpp-MJQ 60 % [facility] ([facility]) Idh7tzi-%Pred-Pre 100 % [facility] ([facility]) Gov6pgv-Qug 100 % [facility] ([facility]) Nwa6kdr-%Pred-Pre 107 % [facility] ([facility]) Xub4cmf-Uzoo 93 % [facility] ([facility]) FEFMax-%Pred-Pre 88 L/E/sec [facility] ([facility]) FEFMax-Pred 6.75 L/E/sec [facility] ([facility], ) FEFMax-Pre 5.97 L/E/sec [facility] ([facility]) FEFMax-LLN 4.29 L/E/sec [facility] ([facility]) Fvy2091-Tlij 1.81 L/E/sec [facility] ([facility]) Nez9422-Nwj 1.47 L/E/sec [facility] ([facility], ) Jbh8762-%Pred-Pre 80 L/E/sec [facility] ([facility]) Cui0785-PYD 0.12 L/E/sec [facility] ([facility]) Jdg3xre3-Oqwi 75 % [facility] ([facility]) ExpTime-Pre 4.77 sec [facility] ([facility]) Yxs2ybn5-Iga 71 % [facility] ([facility]) Tbq2cbd3-%Pred-Pre 93 % [facility] ([facility]) Pyf8ahl3-QVY 66 % [facility] ([facility]) ID Date Data Source [id number] 02/17/2020 01:36:00 PM EST [facility] ([facility]) Name Value Range Interpretation Code Description Data Anila rce(s) Supporting Document(s) Thyroxine (T4) free [Mass/volume] in Serum or Plasma 1.30 ng/dL 0.76- 1.46 [facility] ([facility]) ID Date Data Source [id number] 02/17/2020 01:36:00 PM EST [facility] ([facility]) Name Value Range Interpretation Code Description Data Anila rce(s) Supporting Document(s) Thyrotropin [Units/volume] in Serum or Plasma by Detec tion limit <= 0.05 mIU/L 1.78 uIU/mL 0.36-3.74 [facility] ([facility] ) ID Date Data Source [id number] 02/17/2020 01:36:00 PM EST [facility] ([facility]) Name Value Range Interpretation Code Description Data Anila rce(s) Supporting Document(s) Triglyceride [Mass/volume] in Serum or Plasma 165 mg/dL 30-150 [facility] ([facility]) Cholesterol [Mass/volume] in Serum or Plasma 117 mg/dL 131-200 [facility] ([facility]) Cholesterol in LDL [Mass/volume] in Serum or Plasma by calcu lation 41 CALC 50-159 [facility] ([facility]) Cholesterol in HDL [Mass/volume] in Serum or Plasma 43 mg/dL 35-60 [facility] ([facility]) ID Date Data Source [id number] 02/17/2020 01:36:00 PM EST [facility] ([facility]) Name Value Range Interpretation Code Description Data Anila rce(s) Supporting Document(s) Glucose [Mass/volume] in Serum or Plasma 95 mg/dL 74-99 [facility] ([facility]) 100-125 mg/dL PRE-DIABETES/FASTING >126 mg/dL DIABETES/FASTING Urea nitrogen [Mass/volume] in Serum or Plasma 19 mg/dL 7-18 [facility] ([facility]) Sodium [Moles/volume] in Serum or Plasma 142 meq/L 136-145 [facility] ([facility]) Creatinine 1.1 mg/dL 0.6-1.3 [facility] Chloride [Moles/volume] in Serum or Plasma 106 meq/L 98-107 [facility] ([facility]) Potassium [Moles/volume] in Serum or Plasma 4.4 meq/L 3.5-5.1 [facility] ([facility]) Calcium [Mass/volume] in Serum or Plasma 9.4 mg/dL 8.5-10.1 [facility] ([facility]) Alkaline phosphatase isoenzyme [Units/volume] in Serum or Pl asma 93 mg/dL 46-116 [facility] ([facility]) Carbon dioxide, total [Moles/volume] in Serum or Plasma 30 meq/L 21 -32 [facility] ([facility]) Alanine aminotransferase [Enzymatic activity/volume] in Seru m or Plasma 29 U/L 12-78 [facility] ([facility]) Total Bilirubin 0.5 mg/dL 0.2-1.0 [facility] ([facility]) Aspartate aminotransferase [Enzymatic activity/volume] in Serum or Plasma 35 U/L 15-37 [facility] ([facility] ) Proteinase 3 Ab [Units/volume] in Serum 7.5 g/dL 6.4-8.2 [facility] ([facility]) Albumin [Mass/volume] in Serum or Plasma 3.6 g/dL 3.4-5.0 [facility] ([facility]) A/G Ratio 0.92 CALC 1.00-1.90 [facility] ([place] [facility]) Glomerular filtration rate/1.73 sq M pre dicted among non-blacks [Volume Rate/Area] in Serum or Plasma by Creatinine-based formula (MDRD) Laboratory test result [facility] ([facility] ) Glomerular filtration rate/1.73 sq M pre dicted among blacks [Volume Rate/Area] in Serum or Plasma by Creatinine-based formula (MDRD) Laboratory test result [facility] ([facility]) <content>CHRONIC KIDNEY DISEASE STAGING PER NKF</content>
<content></content>
<content>STAGE I & II GFR >= 60 NORMAL TO MILDLY DECREASED</content>
<content>STAGE III GFR 30-59 MODERATELY DECREASED</content>
<content>STAGE IV GFR 15-29 SEVERELY DECREASED</content>
<content>STAGE V GFR <15 VERY LITTLE GFR LEFT</content>
<content>ESRD GFR <15 ON WHITE SUGAR SYRUP OPERATOR</content>
<content></content> ID Date Data Source [id number] 02/17/2020 01:36:00 PM EST [facility] ([facility]) Name Value Range Interpretation Code Description Data Anila rce(s) Supporting Document(s) Glucose mean value [Mass/volume] in Blood Estimated fr om glycated hemoglobin 111 mg/dL 60-110 [facility] ([facility] ) Hemoglobin A1c/Hemoglobin.total in Blood 5.5 % [facility] ([facility]) Lab Result Notes: Pre-Diabetes 5.7 - 6.4 % Diabetes = or > 6.5% ID Date Data Source [id number] 02/17/2020 01:36:00 PM EST [facility] ([facility]) Name Value Range Interpretation Code Description Data Anila rce(s) Supporting Document(s) Leukocytes [#/volume] in Blood by Automated count 6.4 x10*3/UL 4.1-10 .9 [facility] ([facility]) NOTE: RESULT VERIFIED. Erythrocytes [#/volume] in Blood by Automated count 3.66 x10*6/UL 4.2 0-6.30 [facility] ([facility]) Hemoglobin [Mass/volume] in Blood 11.4 g/dL 12.0-18.0 [facility] ([facility]) Hematocrit [Volume Fraction] of Blood by Automated count 33.5 % 3 7.0-51.0 [facility] ([facility]) MCHC 34.3 g/dL 31.0-38.0 [facility] ([place] [facility]) MCV 91.4 fL 80.0-97.0 [facility] ([place] [facility]) MCH 31.3 pg 26.0-32.0 [facility] ([place] [facility]) MPV 9.0 FL 7.8-11.0 [facility] ([place] [facility]) Platelets [#/volume] in Blood by Automated count 168 x10*3/UL 140-440 [facility] ([facility]) Erythrocyte distribution width [Ratio] by Automated count 14.3 % 11.6-13.7 [facility] ([facility]) Neut % 65.7 % 37.0-92.0 [facility] ([place] [facility]) Mid % 7.3 % 1.7-9.3 [facility] ([place] [facility]) Lymph % 27.0 % 10.0-58.5 [facility] ([place] [facility] Lymph # 1.7 x10*3/UL 0.6-4.1 [facility] ([facility]) Neut # 4.2 x10*3/UL 2.0-7.8 [facility] ([facility]) Mid # 0.5 x10*3/UL 0.1-0.6 [facility] ([facility]) ID Date Data Source [id number] 02/17/2020 01:36:00 PM EST [facility] ([facility]) Name Value Range Interpretation Code Description Data Anila rce(s) Supporting Document(s) Hemoglobin A1c/Hemoglobin.total in Blood Laboratory test result [facility] ([facility]) ID Date Data Source [id number] 02/17/2020 07:46:00 AM EST [facility] ([facility]) Name Value Range Interpretation Code Description Data Anila rce(s) Supporting Document(s) White Blood Count 6.4 4.1-10.9 [facility] ([facility] Red Blood Count 3.66 4.2-6.30 [facility] ([facility] Platelets 168 140-440 [facility] ([facility] Hemoglobin 11.4 12.0-18.0 [facility] ([facility]) Hematocrit 33.5 37.0-51.0 [facility] ([facility] ID Date Data Source [id number] 02/17/2020 07:46:00 AM EST [facility] ([facility]) Name Value Range Interpretation Code Description Data Anila rce(s) Supporting Document(s) Triglycerides 165 30-150 [facility] ([facility] Cholesterol 117 131-200 [facility] ([facility]) Cholesterol in LDL [Mass/volume] in Serum or Plasma by calculation 41 50-159 [facility] ([facility]) HDL 43 35-60 [facility] ([facility] Chol/HDL Ratio Laboratory test result [facility] ([facility]) ID Date Data Source [id number] 02/17/2020 07:46:00 AM EST [facility] ([facility]) Name Value Range Interpretation Code Description Data Anila rce(s) Supporting Document(s) Albumin [Mass/volume] in Serum or Plasma 3.6 [facility] ([facility]) Alanine aminotransferase [Enzymatic activity/volume] in Serum or Pl asma 29 [facility] ([facility]) Calcium [Mass/volume] in Serum or Plasma 9.4 [facility] ([facility]) Carbon dioxide, total [Moles/volume] in Serum or Plasma 30 [facility] ([facility]) Chloride [Moles/volume] in Serum or Plasma 106 [facility] ([facility]) Alkaline phosphatase [Enzymatic activity/volume] in Serum or Plasma 9 3 [facility] ([facility]) Potassium [Moles/volume] in Serum or Plasma 4.4 [facility] ([facility]) Protein [Mass/volume] in Serum or Plasma 7.5 [facility] ([facility]) Sodium 142 [facility] ([facility] Aspartate aminotransferase [Enzymatic activity/volume] in Serum or Plasma 35 [facility] ([facility]) Urea nitrogen [Mass/volume] in Serum or Plasma 19 [facility] ([facility]) Glucose 95 74-106 [facility] Creatinine For GFR 1.1 [facility] ([facility]) Procedure Social History Code Duration Value Status Description Data Source(s ) Smoking 12/13/2020 12:00:00 AM EDT Patient is a former smoker completed Patient is a former smoker [facility] ([facility], ) Smoking 09/24/2020 12:00:00 AM EDT Former Smoker completed Former Smoker eCW1 ([facility]) Smoking 09/24/2020 12:00:00 AM EDT Former Smoker completed Former Smoker eCW1 ([facility]) Smoking 09/24/2020 12:00:00 AM EDT Former Smoker completed Former Smoker eCW1 ([facility]) Smoking 09/20/2020 12:00:00 AM EDT Patient is a former smoker completed Patient is a former smoker [facility] ([facility]) Smoking 09/12/2020 12:00:00 AM EDT Patient is a former smoker completed Patient is a former smoker [facility] ([facility]) Smoking 07/17/2020 12:00:00 AM EDT Former Smoker completed Former Smoker eCW1 ([facility]) Smoking 03/26/2020 12:00:00 AM EST Former Smoker completed Former Smoker eCW1 ([facility]) Smoking 02/13/2020 12:00:00 AM EST Former Smoker completed Former Smoker eCW1 ([facility]) Smoking 02/13/2020 12:00:00 AM EST Former Smoker completed Former Smoker eCW1 ([facility]) Vital Signs ID Date Data Source UNK Name Value Range Interpretation Code Description Data Source(s) Body mass index (BMI) [Ratio] 28.6 kg/m2 28.6 k g/m2 [facility] ([facility]) Body height 70 [in_i] 70 [in_i] [facility] ([facility]) 5'10" Systolic blood pressure 132 mm[Hg] 132 mm[Hg] [facility] Diastolic blood pressure 72 mm[Hg] 72 mm[Hg] [facility] ([facility]) Heart rate 68 /min 68 /min [facility] ([facility]) Body weight 199.00 [lb_av] 199.00 [lb_av] [facility] T ([facility]) Systolic blood pressure 110 mm[Hg] 110 mm[Hg] M [facility] ([facility]) Diastolic blood pressure 70 mm[Hg] 70 mm[Hg] [facility] ([facility]) Heart rate 50 /min 50 /min [facility] ([facility]) Oxygen saturation in Arterial blood by Pulse oximetry 98 % 98 % [facility] ([facility]) Body height 71 [in_i] 71 [in_i] [facility] ([facility]) 5'11" Body weight 204.00 [lb_av] 204.00 [lb_av] [facility] PT States Body mass index (BMI) [Ratio] 28.4 kg/m2 28.4 k g/m2 [facility] ([facility]) [place] body weight 172 [lb_av] 172 [lb_av] [facility] Body weight 92.534 kg 92.534 kg [facility] ([facility]) Body surface area Derived from formula 2.13 m2 2.13 m2 [facility] ([facility]) Systolic blood pressure 102 mm[Hg] 102 mm[Hg] [facility]) Body height 70 [in_i] 70 [in_i] [facility] ([facility]) 5'10" Body weight 202.00 [lb_av] 202.00 [lb_av] [facility] T ([facility]) Body mass index (BMI) [Ratio] 29.0 kg/m2 29.0 k g/m2 [facility] ([facility]) Diastolic blood pressure 56 mm[Hg] 56 mm[Hg] [facility] ([facility]) Heart rate 56 /min 56 /min [facility] ([facility]) Body height 70 [in_i] 70 [in_i] [facility] ([facility]) 5'10" Heart rate 56 /min 56 /min [facility] ([facility]) Body weight 204.38 [lb_av] 204.38 [lb_av] [facility] T ([facility]) Diastolic blood pressure 42 mm[Hg] 42 mm[Hg] [facility] ([facility]) RT Arm Body mass index (BMI) [Ratio] 29.3 kg/m2 29.3 k g/m2 [facility] ([facility]) Systolic blood pressure 108 mm[Hg] 108 mm[Hg] M EDENT ([facility]) RT Arm Oxygen saturation in Arterial blood by Pulse oximetry 91 % 91 % [facility] ([facility]) Air Body weight 204.00 [lb_av] 204.00 [lb_av] [facility] T ([facility]) Body mass index (BMI) [Ratio] 27.7 kg/m2 27.7 k g/m2 [facility] ([facility]) Body height 72 [in_i] 72 [in_i] [facility]) 6'0" Body mass index (BMI) [Ratio] 30.3 kg/m2 30.3 k g/m2 [facility] ([facility]) Systolic blood pressure 130 mm[Hg] 130 mm[Hg] [facility]) Diastolic blood pressure 60 mm[Hg] 60 mm[Hg] [facility] ([facility]) Heart rate 54 /min 54 /min [facility] ([facility]) Body height 70 [in_i] 70 [in_i] [facility] ([facility]) 5'10" Body weight 211.00 [lb_av] 211.00 [lb_av] [facility] T ([facility]) Systolic blood pressure 111 mm[Hg] 111 mm[Hg] [facility]) Diastolic blood pressure 68 mm[Hg] 68 mm[Hg] [facility] ([facility], [facility]) Heart rate 67 /min 67 /min [facility] ([facility], [facility]) Respiratory rate 12 /min 12 /min [facility] ( [facility]) Oxygen saturation in Arterial blood by Pulse oximetry 96 % 96 % [facility] ([facility]) Body temperature 96.8 [degF] 96.8 [degF] [facility] ([facility], [facility]) Body weight 204.00 [lb_av] 204.00 [lb_av] MED[facility] T ([facility], [facility]) Body height 72 [in_i] 72 [in_i] [facility] ([facility]) 6'0" Body mass index (BMI) [Ratio] 27.7 kg/m2 27.7 k g/m2 [facility] ([facility], [facility]) Body weight 245 [lb_av] 245 [lb_av] eCW1 ([facility]) Body height 70 [in_i] 70 [in_i] eCW1 ([facility]) Body mass index (BMI) [Ratio] 35.15 kg/m2 35.15 kg/m2 eCW1 ([facility]) Heart rate 67 /min 67 /min eCW1 ([facility]) Respiratory rate 18 /min 18 /min eCW1 ([facility]) Body temperature 97.1 [degF] 97.1 [degF] eCW1 ( [facility]) Systolic blood pressure 162 mm[Hg] 162 mm[Hg] e CW1 ([facility]) Diastolic blood pressure 81 mm[Hg] 81 mm[Hg] eCW1 ([facility]) Systolic blood pressure 160 mm[Hg] 160 mm[Hg] M EDENT ([facility], [facility]) Diastolic blood pressure 78 mm[Hg] 78 mm[Hg] [facility] ([facility], [facility]) Heart rate 68 /min 68 /min [facility] ([facility], [facility]) Respiratory rate 17 /min 17 /min [facility] ( [facility], [facility]) Body temperature 98.4 [degF] 98.4 [degF] [facility] ([facility], [facility]) Body weight 204.00 [lb_av] 204.00 [lb_av] MED[facility] T ([facility], [facility]) Oxygen saturation in Arterial blood by Pulse oximetry 98 % 98 % [facility] ([facility]) Body height 72 [in_i] 72 [in_i] [facility] ([facility]) 6'0" Body mass index (BMI) [Ratio] 27.7 kg/m2 27.7 k g/m2 [facility] ([facility] [facility]) Body weight 209.00 [lb_av] 209.00 [lb_av] MEDEN T ([facility]) Body height 72 [in_i] 72 [in_i] MEDENT ([facility]) 6'0" Body mass index (BMI) [Ratio] 28.3 kg/m2 28.3 k g/m2 MEDENT ([facility]) Heart rate 70 /min 70 /min MEDENT ([facility]) Systolic blood pressure--sitting 110 mm[Hg] 110 mm[Hg] MEDENT ([facility]) Ra, large cuff Diastolic blood pressure--sitting 64 mm[Hg] 64 mm[Hg] MEDENT ([facility]) Ra, large cuff Diastolic blood pressure 58 mm[Hg] 58 mm[Hg] [facility] ([facility]) ra Heart rate 80 /min 80 /min MEDENT ([facility]) Systolic blood pressure 102 mm[Hg] 102 mm[Hg] [facility] RT Arm Diastolic blood pressure 68 mm[Hg] 68 mm[Hg] [facility] ([facility]) RT Arm Systolic blood pressure 114 mm[Hg] 114 mm[Hg] [facility] ra Body height 70 [in_i] 70 [in_i] MEDENT ([facility]) 5'10" Body weight 220.12 [lb_av] 220.12 [lb_av] MEDEN T ([facility]) Oxygen saturation in Arterial blood by Pulse oximetry 97 % 97 % MEDENT ([facility]) Air Body mass index (BMI) [Ratio] 31.6 kg/m2 31.6 k g/m2 MEDENT ([facility]) Body height 70 [in_i] 70 [in_i] MEDENT ([facility] 5'10" Diastolic blood pressure 60 mm[Hg] 60 mm[Hg] MEDENT ([facility] Heart rate 62 /min 62 /min MEDENT ([facility] Body weight 220.00 [lb_av] 220.00 [lb_av] MEDEN T ([facility] Systolic blood pressure 126 mm[Hg] 126 mm[Hg] [facility] Body mass index (BMI) [Ratio] 31.6 kg/m2 31.6 k g/m2 MEDENT ([facility] Systolic blood pressure 120 mm[Hg] 120 mm[Hg] [facility] ([facility]) Body weight 220.00 [lb_av] 220.00 [lb_av] MEDEN T ([facility]) Body mass index (BMI) [Ratio] 31.6 kg/m2 31.6 k g/m2 MEDENT ([facility]) Body height 70 [in_i] 70 [in_i] MEDENT ([facility]) 5'10" Diastolic blood pressure 60 mm[Hg] 60 mm[Hg] MEDENT ([facility]) Heart rate 64 /min 64 /min MEDENT ([facility]) Body temperature 96.1 [degF] 96.1 [degF] eCW1 ( [facility]) Body weight 245 [lb_av] 245 [lb_av] eCW1 ([facility]) Body height 70 [in_i] 70 [in_i] eCW1 ([facility]) Body mass index (BMI) [Ratio] 35.15 kg/m2 35.15 kg/m2 W1 ([facility]) Heart rate 80 /min 80 /min eCW1 ([facility]) Respiratory rate 18 /min 18 /min eCW1 ([facility]) Systolic blood pressure 150 mm[Hg] 150 mm[Hg] e CW1 ([facility]) Diastolic blood pressure 78 mm[Hg] 78 mm[Hg] eCW1 ([facility]) Systolic blood pressure 157 mm[Hg] 157 mm[Hg] M EDENT ([facility], ) Diastolic blood pressure 74 mm[Hg] 74 mm[Hg] MEDENT ([facility]) Heart rate 58 /min 58 /min MEDENT ([facility]) Oxygen saturation in Arterial blood by Pulse oximetry 100 % 100 % MEDENT ([facility]) Respiratory rate 16 /min 16 /min MEDENT ( [facility]) Body temperature 97.2 [degF] 97.2 [degF] [facility] ([facility]) Body height 71 [in_i] 71 [in_i] [facility] 5'11" Body weight 214.00 [lb_av] 214.00 [lb_av] MEDEN T ([facility]) Body mass index (BMI) [Ratio] 29.8 kg/m2 29.8 k g/m2 [facility] ([facility]) [place] body weight 172 [lb_av] 172 [lb_av] MEDEN T ([facility]) Body weight 97.070 kg 97.070 kg [facility] ([facility]) Oxygen saturation in Arterial blood by Pulse oximetry 100 % 100 % MEDENT ([facility]) Respiratory rate 16 /min 16 /min MEDENT ( [facility]) Body temperature 97.2 [degF] 97.2 [degF] MEDENT ([facility]) Body height 71 [in_i] 71 [in_i] [facility]) 5'11" Body weight 214.00 [lb_av] 214.00 [lb_av] MEDEN T ([facility]) Body mass index (BMI) [Ratio] 29.8 kg/m2 29.8 k g/m2 [facility] ([facility]) [place] body weight 172 [lb_av] 172 [lb_av] MEDEN T ([facility]) Body weight 97.070 kg 97.070 kg [facility] ([facility]) Body surface area Derived from formula 2.17 m2 2.17 m2 [facility] ([facility]) Body surface area Derived from formula 2.17 m2 2.17 m2 [facility] ([facility]) Body height 70 [in_i] 70 [in_i] MEDENT ([facility]) 5'10" Oxygen saturation in Arterial blood by Pulse oximetry 92 % 92 % [facility]) [facility] Body mass index (BMI) [Ratio] 31.6 kg/m2 31.6 k g/m2 [facility] ([facility]) Systolic blood pressure 126 mm[Hg] 126 mm[Hg] [facility] ([facility]) Diastolic blood pressure 60 mm[Hg] 60 mm[Hg] [facility] ([facility]) Heart rate 62 /min 62 /min [facility] ([facility]) Body weight 220.00 [lb_av] 220.00 [lb_av] [facility] T [facility] Systolic blood pressure 133 mm[Hg] 133 mm[Hg] [facility] ([facility]) Diastolic blood pressure 72 mm[Hg] 72 mm[Hg] [facility] ([facility]) Heart rate 61 /min 61 /min [facility] ([facility]) Oxygen saturation in Arterial blood by Pulse oximetry 99 % 99 % [facility] ([facility]) Body temperature 96.8 [degF] 96.8 [degF] [facility] ([facility]) Body height 71 [in_i] 71 [in_i] [facility] ([facility]) 5'11" Body weight 214.50 [lb_av] 214.50 [lb_av] MEDEN T ([facility]) Body mass index (BMI) [Ratio] 29.9 kg/m2 29.9 k g/m2 [facility] ([facility]) [place] body weight 172 [lb_av] 172 [lb_av] MEDEN T ([facility], ) Body weight 97.300 kg 97.300 kg MEDENT ([facility]) Body surface area Derived from formula 2.17 m2 2.17 m2 [facility]) Body weight 215.00 [lb_av] 215.00 [lb_av] MEDEN T ([facility]) Body height 72 [in_i] 72 [in_i] MEDENT ([facility]) 6'0" Heart rate 60 /min 60 /min MEDENT ([facility]) regular Respiratory rate 16 /min 16 /min MEDENT ( [facility]) Body mass index (BMI) [Ratio] 29.2 kg/m2 29.2 k g/m2 MEDENT ([facility]) Systolic blood pressure--sitting 121 mm[Hg] 121 mm[Hg] MEDENT ([facility]) Medium cuff, Ra Diastolic blood pressure--sitting 64 mm[Hg] 64 mm[Hg] MEDENT ([facility]) Medium cuff, Ra Systolic blood pressure--supine 132 mm[Hg] 132 mm[Hg] MEDENT ([facility]) Diastolic blood pressure--supine 66 mm[Hg] 66 mm[Hg] MEDENT ([facility]) Body weight 224.2 [lb_av] 224.2 [lb_av] eCW1 ([facility]) Body height 70 [in_i] 70 [in_i] eCW1 ([facility]) Body mass index (BMI) [Ratio] 32.17 kg/m2 32.17 kg/m2 eCW1 ([facility]) Heart rate 60 /min 60 /min eCW1 ([facility]) Respiratory rate 18 /min 18 /min eCW1 ([facility]) Body temperature 98.3 [degF] 98.3 [degF] eCW1 ( [facility]) Systolic blood pressure 157 mm[Hg] 157 mm[Hg] e CW1 ([facility]) Diastolic blood pressure 72 mm[Hg] 72 mm[Hg] eCW1 ([facility]) Heart rate 60 /min 60 /min [facility] ([facility]) Oxygen saturation in Arterial blood by Pulse oximetry 96 % 96 % [facility] ([facility]) Body temperature 96.5 [degF] 96.5 [degF] [facility] ([facility]) Body height 72 [in_i] 72 [in_i] [facility] ([facility]) 6'0" Body weight 218.00 [lb_av] 218.00 [lb_av] MEDEN T ([facility]) Body mass index (BMI) [Ratio] 29.6 kg/m2 29.6 k g/m2 [facility] ([facility]) [place] body weight 178 [lb_av] 178 [lb_av] [facility] Body weight 98.885 kg 98.885 kg [facility] ([facility]) Body surface area Derived from formula 2.21 m2 2.21 m2 [facility] ([facility]) Systolic blood pressure 130 mm[Hg] 130 mm[Hg] M [facility] ([facility]) Diastolic blood pressure 80 mm[Hg] 80 mm[Hg] [facility] ([facility]) Systolic blood pressure 128 mm[Hg] 128 mm[Hg] [facility] ([facility]) Diastolic blood pressure 76 mm[Hg] 76 mm[Hg] [facility] ([facility]) Heart rate 60 /min 60 /min [facility] ([facility]) Oxygen saturation in Arterial blood by Pulse oximetry 96 % 96 % [facility] ([facility]) Body temperature 96.4 [degF] 96.4 [degF] [facility] ([facility]) Body height 72 [in_i] 72 [in_i] [facility] ([facility]) 6'0" Body weight 218.00 [lb_av] 218.00 [lb_av] MEDEN T ([facility]) Body weight 98.885 kg 98.885 kg [facility] ([facility]) Body surface area Derived from formula 2.21 m2 2.21 m2 MEDENT ([facility]) Body mass index (BMI) [Ratio] 29.6 kg/m2 29.6 k g/m2 MEDENT ([facility]) [place] body weight 178 [lb_av] 178 [lb_av] MEDEN T ([facility]) Diastolic blood pressure--sitting 66 mm[Hg] 66 mm[Hg] MEDENT ([facility]) Medium cuff, Ra; 112/62 [place] Respiratory rate 16 /min 16 /min MEDENT ( [facility]) Body mass index (BMI) [Ratio] 31.1 kg/m2 31.1 k g/m2 MEDENT ([facility]) Systolic blood pressure--sitting 110 mm[Hg] 110 mm[Hg] MEDENT ([facility]) Medium cuff, Ra; 112/62 [place] Heart rate 64 /min 64 /min MEDENT ([facility]) regular Body weight 229.00 [lb_av] 229.00 [lb_av] MEDEN T ([facility]) Systolic blood pressure--supine 116 mm[Hg] 116 mm[Hg] MEDENT ([facility]) Ra Diastolic blood pressure--supine 68 mm[Hg] 68 mm[Hg] MEDENT ([facility]) Ra Body height 72 [in_i] 72 [in_i] MEDENT ([facility]) 6'0" Oxygen saturation in Arterial blood by Pulse oximetry 98 % 98 % MEDENT ([facility]) Systolic blood pressure 110 mm[Hg] 110 mm[Hg] M EDENT ([facility]) Diastolic blood pressure 60 mm[Hg] 60 mm[Hg] MEDENT ([facility]) Heart rate 64 /min 64 /min MEDENT ([facility]) Body height 70 [in_i] 70 [in_i] MEDENT ([facility]) 5'10" Body weight 220.00 [lb_av] 220.00 [lb_av] MEDEN T ([facility]) Oxygen saturation in Arterial blood by Pulse oximetry 96 % 96 % MEDENT ([facility]) Air Body mass index (BMI) [Ratio] 31.6 kg/m2 31.6 k g/m2 MEDENT ([facility]) Body weight 226 [lb_av] 226 [lb_av] eCW1 ([facility]) Body height 70 [in_i] 70 [in_i] eCW1 ([facility]) Body mass index (BMI) [Ratio] 32.42 kg/m2 32.42 kg/m2 eCW1 ([facility]) Heart rate 65 /min 65 /min eCW1 ([facility]) Respiratory rate 20 /min 20 /min eCW1 ([facility]) Body temperature 95.6 [degF] 95.6 [degF] eCW1 ( [facility]) Systolic blood pressure 148 mm[Hg] 148 mm[Hg] e CW1 ([facility]) Diastolic blood pressure 72 mm[Hg] 72 mm[Hg] eCW1 ([facility]) Body weight 219 [lb_av] 219 [lb_av] eCW1 ([facility]) Body height 70 [in_i] 70 [in_i] eCW1 ([facility]) Body mass index (BMI) [Ratio] 31.42 kg/m2 31.42 kg/m2 eCW1 ([facility]) Heart rate 67 /min 67 /min eCW1 ([facility]) Respiratory rate 20 /min 20 /min eCW1 ([facility]) Body temperature 97 [degF] 97 [degF] eCW1 ([facility]) Systolic blood pressure 110 mm[Hg] 110 mm[Hg] e CW1 ([facility]) Diastolic blood pressure 60 mm[Hg] 60 mm[Hg] eCW1 ([facility]) Patient Treatment Plan of Care Planned Activity Planned Date Details Description Data Source (s) Finasteride 5 MG Oral Tablet 02/13/2020 12:00:00 AM EST eCW1 ([facility]) Sulfamethoxazole 800 MG / Trimethoprim 160 MG Oral Tab let [Bactrim] 02/13/2020 12:00:00 AM EST eCW1 ([facility]) Finasteride 5 MG Oral Tablet 02/13/2020 12:00:00 AM EST eCW1 ([facility]) Sulfamethoxazole 800 MG / Trimethoprim 160 MG Oral Tab let [Bactrim] 02/13/2020 12:00:00 AM EST eCW1 ([facility]) Finasteride 5 MG Oral Tablet 02/13/2020 12:00:00 AM EST eCW1 ([facility])
[2021-02-27] MEDS ORDERED: cefTRIAXone SOD 1 GM in D5W MINI-BAG PLUS 50 ML IV ONE (12:00)
[2021-02-27] MEDS: LACTOBACILLUS ACIDOPHILUS CAP (BACID) PO SCH ×2 (12:30→18:00)
--- NOTE | 2021-02-27 12:37 | REP ---
INDICATION: cxr opacities COMPARISON: 11/30/2020 TECHNIQUE: Axial noncontrast images from the thoracic inlet to the upper abdomen with coronal and sagittal reformations. This CT examination was performed using the following dose reduction techniques: Automated exposure control, adjustment of mA and/or kv according to the patient's size, and use of iterative reconstruction technique. FINDINGS: Moderate right pleural effusion, right lower lobe consolidation, right upper lobe, right lower lobe, and left lower lobe opacities consistent with multifocal pneumonia. Associated reactive mediastinal and hilar adenopathy noted. Differential diagnosis includes COVID-19 pulmonary disease and malignancy. No evidence for pneumothorax. Atherosclerotic changes to the thoracic aorta and coronary arteries noted along with mild cardiomegaly. No pericardial effusion. 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 Musculoskeletal structures demonstrate degenerative appearing changes. Limited upper abdomen demonstrates normal bilateral adrenal glands along with renal atrophy and cystic changes. IMPRESSION: 1. Right lower lobe consolidation, right pleural effusion, and multifocal opacities most compatible with pneumonia. Differential diagnosis includes malignancy and COVID-19 disease. <Electronically signed by Goyo Alvarado > 02/27/21 9841
--- OUTSIDE RECORDS SUMMARY | 2021-02-27 12:55 | CCD ---
Author Author [facility] Organization [facility] Address Unknown Phone Unavailable Care Team Providers Care [employer] Workers Name Role Phone Neville SILVA MD Unavailable [...] Unavailable Unavailable Neville SILVA MD Unavailable Unavailable Neivlle SILVA MD Unavailable Unavailable Neville SILVA MD [...] Janessa Samantha PA Unavailable Unavailable Symenow, Janessa Samatnha PA Unavailable Unavailable Symenow, Janessa Samantha PA [...] Unavailable Carlos, Soraya DO Unavailable Unavailable Carlos, Soraay DO Unavailable Unavailable Carlos, Soraya DO Unavailable [...] R LOREN DPM Unavailable Unavailable MAJAK, R LORNE DPM Unavailable Unavailable MAJAK, R LOREN DPM [...] L TULIO PA Unavailable Unavailable SAMMI, L TULOI PA Unavailable Unavailable SAMMI, L TULIO PA [...] is protected by Article 27-F of the [facility] Public Health law. If you continue you may have access to information: Regarding HIV / AIDS; Provided by facilities licensed or operated by the [facility] Office of Mental Health; or Provided by the [facility] Office for People With Developmental Disabilities. If such information is present, then the following [facility] mandated warning applies: This information has [...] law may result in a fine or custodial sentence or both. A general authorization for the release of medical or other information is NOT sufficient authorization for further disc losure. Allergies and Adverse Reactions Type Description Substance Reaction Status Data Source(s ) Drug Allergy Drug Allergy NKDA [facility] ([facility]) Encounters Encounter Providers Location Date Indications Data Source(s ) Outpatient Attender: Soraya Campbell 01/14 03:00:00 PM EDT MED[facility] ([facility] ) Office Visit Attender: LARA SILVA MD Main Office 12/26/2020 08:00:0 0 PM EDT MED[facility] ([facility]) Outpatient Attender: JT Knowles/Zuleika/Gopi/Franklin 12/13/2020 10:00:00 AM EDT MED[facility] ([facility]) Outpatient Attender: Soraya Campbell 12/07 01:30:00 PM EDT MEDENT ([facility] ) Unknown [address] [facility] [address] 12/03/2020 12:00:00 AM EDT eCW1 ([facility]) Office Visit Attender: LARA ISLVA MD Main Office 11/13/2020 05:11:0 0 PM EDT MEDENT ([facility]) Outpatient Attender: Soraya Campbell 11/09 11:00:00 AM EDT MEDENT ([facility] ) Outpatient Attender: TULIO BILLS Main Office 11/02/2020 0 8:00:00 AM EDT MED[facility] ([facility]) Office Visit Attender: LARA SILVA MD Main Office 10/25/2020 05:51:0 0 PM EDT MED[facility] ([facility]) Unknown [address] [facility] [address] 10/23/2020 12:00:00 AM EDT eCW1 ([facility]) Outpatient Attender: GROVER solis 09/24/2020 01:50:00 PM EDT MED[facility] ([facility]) (Cysto1) Urology [address] [place] [address] 09/24/2020 12:00:00 AM EDT eCW1 ([facility]) Outpatient Attender: TAURUS Helm ry 09/20/2020 03:00:00 PM EDT MED[facility] ([facility]) Office Visit Attender: LARA SILVA MD Main Office 09/17/2020 01:44:0 0 PM EDT MED[facility] ([facility]) Outpatient Attender: TULIO BILLS Main Office 09/12/2020 0 1:00:00 PM EDT MED[facility] ([facility]) Outpatient Attender: Soraya Campbell 09/07 11:00:00 AM EDT MED[facility] ([facility] ) Outpatient Attender: LOREN DELEON [facility] Office 08/12 03:00:00 PM EDT MED[facility] ([facility] Outpatient Attender: Soraya Gundersonronna 08/21 02:00:00 PM EDT MEDENT ([facility] ) Office Visit Attender: LARA SILVA MD Main Office 08/17/2020 03:10:0 0 PM EDT MED[facility] ([facility]) Outpatient Attender: Samantha BILLS Main Office 07/26/2020 09:30:00 AM EDT MED[facility] ([facility]) Outpatient [address] [facility] [address] 07/17/2020 12:00:00 AM EDT eCW1 ([facility]) Office Visit Attender: LARA SILVA MD Main Office 07/16/2020 01:35:0 0 PM EDT MED[facility] ([facility]) Outpatient Attender: Samantha BILLS Main Office 07/12/2020 11:15:00 AM EDT MED[facility] ([facility]) Outpatient Attender: Soraya Carlosarelis Campbell 07/09 11:00:00 AM EDT MED[facility] ([facility] ) Office Visit Attender: LARA SILVA MD Main Office 06/13/2020 10:11:0 0 AM EST MED[facility] ([facility]) Outpatient Attender: KIRSTEN Redd/Zuleika/Gopi/Rein dl 06/12/2020 09:00:00 AM EST MED[facility] ([facility]) Outpatient Attender: LARA SILVA MD Main Office 06/06/2020 08:00:00 AM EST MED[facility] ([facility]) Outpatient Attender: Samantha BILLS Main Office 05/03/2020 08:15:00 AM EST MED[facility] ([facility]) Office Visit Attender: LARA SILVA MD Main Office 04/27/2020 02:56:0 0 PM EST MED[facility] ([facility]) Outpatient Attender: Samantha BILLS Main Office 03/26/2020 08:30:00 AM EST MED[facility] ([facility]) (Cysto1) Urology [address] [place] [address] 03/26/2020 12:00:00 AM EST eCW1 ([facility]) Outpatient Attender: KIRSTEN Delgadoang/Leighton/Gopi/Rein dl 03/21/2020 10:00:00 AM EST MED[facility] ([facility]) Outpatient Attender: KIRSTEN Redd/Leighton/Gopi/Rein dl 03/20/2020 09:30:00 AM EST MED[facility] ([facility]) OFFICE OUTPATIENT NEW 60 MINUTES Attender: LARA SILVA MD Main Office 02/22/2020 11:45:00 AM EST MED[facility] ([facility]) OFFICE OUTPATIENT NEW 30 MINUTES Attender: Soraya Victoria 02/17/2020 12:00:00 PM EST [facility] ([facility] [place] [address] [facility] [address] 02/14/2020 12:00:00 AM EST eCW1 ([facility]) Outpatient [address] [facility] [address] 02/13/2020 12:00:00 AM EST eCW1 ([facility]) Outpatient [address] [facility] [address] 01/19/2020 12:00:00 AM EDT eCW1 ([facility]) Immunizations Vaccine Date Status Description Data Source(s) COVID-19 VACC, MRNA(PFIZER)/PF 02/13/2021 12:00:00 AM EDT completed [facility] COVID-19 VACCINE Pfizer 01/24/2021 12:00:00 AM EDT completed [facility] Vaccine Series Complete: YESThis Data wa s Submitted to [facility] Via [employer]. COVID-19 VACCINE Pfizer 05/17/2020 12:00:00 AM EST completed [facility] Vaccine Series Complete: YESThis Data wa s Submitted to [facility] Via [employer]. COVID-19 VACCINE Pfizer 04/26/2020 12:00:00 AM EST completed [facility] Vaccine Series Complete: NOThis Data was Submitted to [facility] Via [employer]. Medications Medication Brand Name Start Date Product [...] AM EDT active M EDENT ([facility]) Docusate Sodium 100 MG Oral Capsule [Colace] Colace 12:00:00 AM EDT ORAL active MED[facility] ( [facility]) Docusate Sodium 100 MG Oral Capsule [Colace] Colace 01/2021 12:00:00 AM EDT ORAL active MED[facility] ( [facility]) 2.5 mg /3 mL (0.083 %) 12/14/2020 12:00:00 AM EDT solu tion for nebulization 375 USE 1 VIAL VIA NEBULIZER FOUR TIMES A DA Y NEEDED USE 1 VIAL VIA NEBULIZER FOUR TIMES A DAY NEEDED SOLD: 12/15/2020 [facility] Levothyroxine Sodium 0.112 MG Oral Tablet Levothyroxine Sodi um 12/13/2020 12:00:00 AM EDT ORAL active M EDENT ([facility]) 112 mcg 12/13/2020 12:00:00 AM EDT tablet 90 TAKE ONE TABLET BY MOUTH EVERY DAY TAKE ONE TABLET BY MOUTH EVERY DAY SOLD: 12/15/2020 [facility] Albuterol 0.83 MG/ML Inhalant Solution Albuterol Sulfate 0 12/13/2020 12:00:00 AM EDT active MED[facility] ([facility] ) 0.4 mg 12/08/2020 12:00:00 AM [...] 12:00 :00 AM EDT ORAL active MED[facility] ([facility]) Levothyroxine Sodium 0.125 MG Oral Tablet Levothyroxine Sodi um 12/07/2020 12:00:00 AM EDT ORAL completed [facility] ([facility]) Finasteride 5 MG Oral Tablet FINASTERIDE [...] A DAY SOLD: 12/01/2020 [facility] sennosides, SHELTER 8.6 MG Oral Tablet [Senokot] Senokot 12:00:00 AM EDT active MEDENT ( [facility]) Amiodarone hydrochloride 200 MG Oral Tablet Amiodarone HCL 11/02/2020 12:00:00 AM EDT ORAL active [facility] ([facility]) Amiodarone hydrochloride 200 MG Oral Tablet [...] SOLD: 11/02/2020 [facility] Fluticasone Propionate Nasal Hayden 24- Hour Fluticason e Propionate Nasal Hayden 24- Hour 11/01/2020 12:00:00 AM EDT active MED[facility] ([facility]) Loratadine 10 MG Oral Capsule Loratadine 11/01/2020 12:00:00 AM EDT ORAL active [facility] ([facility]) 2.5 mg 10/31/2020 12:00:00 AM EDT [...] TABLET BY MOUTH EVERY DAY SOLD: 10/31/2020 [facility] Fluticasone propionate 0.05 MG/ACTUAT Metered Dose Yohannes al Hayden 50 mcg/actuation FLUTICASONE PROPIONATE 10/31/2020 12:00:00 AM EDT spray,suspension 16 SPRAY 1 SPRAY IN EACH NOSTRIL TWICE DAILY SPRAY 1 SPRAY IN EACH NOSTRIL TWICE DAILY SOLD: 10/31/2020 [facility] 112 mcg 10/31/2020 12:00:00 AM EDT tablet 30 TAKE ONE TABLET BY MOUTH EVERY DAY AT 6AM. TAKE ONE TABLET BY MOUTH EVERY DAY AT 6AM. SOLD: 10/31/2020 [facility] 0.12 % 10/31/2020 12:00:00 AM EDT mouthwash 946 USE 15ML BY MOUTH THREE TIMES A DAY USE 15ML BY MOUTH THREE TIMES A DAY SOLD: 10/31/2020 [facility] pantoprazole 40 MG Delayed Release Oral Tablet PANTOPRAZOLE SODIUM 10/31/2020 12:00:00 AM EDT tablet,delayed release (DR/EC) 30 T JIE ONE TABLET BY MOUTH EVERY DAY TAKE ONE TABLET BY MOUTH EVERY DAY SOLD: 10/31/2020 [facility] Amoxicillin 500 MG / Clavulanate 125 MG Oral Tablet [Augment in] Augmentin 09/27/2020 12:00:00 AM EDT ORAL completed [facility] ([facility]) Amoxicillin 500 MG / Clavulanate 125 MG Oral Tablet 50 0-125 mg AMOXICILLIN/POTASSIUM CLAV 09/27/2020 12:00:00 AM EDT tablet 20 TAKE ONE TABLET BY MOUTH TWICE A DAY WITH FOOD FOR 10 DAYS TAKE ONE TABLET BY MOUTH TWICE A DAY WITH FOOD FOR 10 DAYS SOLD: 09/27/2020 [facility] Doxycycline Monohydrate 100 MG Oral Capsule Doxycycline [place] hydrate 09/20/2020 12:00:00 AM EDT ORAL active M EDENT ([facility]) 100 mg 09/20/2020 12:00:00 AM EDT capsule 20 TAKE ONE CAPSULE BY MOUTH TWICE A DAY FOR 10 DAYS TAKE ONE CAPSULE BY MOUTH TWICE A DAY FOR 10 DAYS SOLD : 09/21/2020 [facility] 75 mg 09/18/2020 12:00:00 AM EDT capsule 90 TAKE ONE CAPSULE BY MOUTH EVERY EVENING MAXIMUM DAILY DOSE = 1 TAKE ONE CAPSULE BY MOUTH EVERY EVENING MAXIMUM DAILY DOSE = 1 SOLD: 09/20/2020 [facility] Nystatin 09/11/2020 12:00:00 AM EDT active MED[facility] ([facility]) torsemide 10 MG Oral Tablet Torsemide 09/11/2020 12:00:00 AM EDT ORAL active [facility] ([facility]) ferrous gluconate 324 MG Oral Tablet Ferrous Gluconate 04/2020 12:00:00 AM EDT ORAL active [facility] ([facility]) atorvastatin 20 MG Oral Tablet Atorvastatin Calcium 09/11/2020 1 2:00:00 AM EDT ORAL active [facility] ( [facility]) 324 mg (38 mg iron) 09/07/2020 [...] Gluconate 12:00:00 AM EDT ORAL active MED[facility] ([facility]) torsemide 10 MG Oral Tablet Torsemide 09/07/2020 12:00:00 AM EDT ORAL active MED[facility] ([facility]) Amoxicillin 500 MG / Clavulanate 125 MG Oral Tablet [Augment in] Augmentin 09/07/2020 12:00:00 AM EDT ORAL completed MED[facility] ([facility]) Amoxicillin 500 MG / Clavulanate 125 [...] 08/23/2020 12:00:00 AM EDT ORAL completed [facility] atorvastatin 20 MG Oral [...] TABLET BY MOUTH EVERY DAY SOLD: 01/04/2021 [facility] atorvastatin 20 MG Oral Tablet ATORVASTATIN [...] 08/21/2020 12:00:00 AM EDT ORAL completed [facility] ([facility]) atorvastatin 20 MG Oral Tablet Atorvastatin Calcium 08/21/2020 1 2:00:00 AM EDT ORAL active MED[facility] ( [facility]) 875-125 mg 07/03/2020 12:00:00 AM EDT [...] Unspecified 05/17/2020 12:00:00 AM EST completed [facility] ([facility]) Medication administered onsite 20 mg [...] 04/20/2020 12:00:00 AM EST ORAL completed [facility] ([facility]) 2.5 mg 04/17/2020 12:00:00 AM EST [...] 1 05/21/2019 12:00:00 AM EST completed MEDENT ([facility], ) 200 ACTUAT Albuterol 0.09 MG/ACTUAT Metered Dose Inhal er [Ventolin] Ventolin HFA 03/20/2020 12:00:00 AM EST RESPIRATORY completed MEDENT ([facility], ) Trelegy Ellipta Trelegy Ellipta 03/20/2020 12:00:00 AM EST RESPIRATORY completed MEDENT ([facility], ) 50 mg 03/09/2020 12:00:00 [...] AM EST ORAL active MED[facility] ([facility]) Simvastatin 20 MG Oral Tablet Simvastatin 02/21/2020 12:00:00 AM EST ORAL active [facility] ([facility]) 24 HR metoprolol succinate 50 MG Extended Release Oral Tablet Metoprolol Succinate ER 02/21/2020 12:00:00 AM EST ORAL active MED[facility] ([facility]) Multivitamin Adult 02/21/2020 12:00:00 AM EST ORAL active [facility] ([facility]) Aspirin 81 MG Delayed Release Oral Tablet Aspirin 02/21/2020 1 2:00:00 AM EST ORAL [facility] Finasteride 5 MG Oral Tablet Finasteride 02/21/2020 12:00:00 AM EST ORAL active [facility] ([facility]) Levothyroxine Sodium 0.112 MG Oral Tablet Levothyroxine Sodi um 02/21/2020 12:00:00 AM EST ORAL active M EDENT ([facility]) Tamsulosin hydrochloride 0.4 MG Oral Capsule Tamsulosin HCL 02/21/2020 12:00:00 AM EST ORAL active [facility] ([facility]) apixaban 2.5 MG Oral Tablet [Eliquis] Eliquis 02/21/2020 12:00:00 AM EST ORAL active [facility] ([facility]) Brooke-bid Probiotic 02/21/2020 12:00:00 AM EST active MED[facility] ([facility]) pantoprazole 40 MG Delayed Release Oral Tablet Pantoprazole Sodium 02/21/2020 12:00:00 AM EST ORAL active M EDENT ([facility]) docosahexaenoic acid 120 MG / Eicosapentaenoic Acid 180 MG O ral Capsule [place] 3 02/20/2020 12:00:00 AM EST ORAL active [facility] ([facility]) pregabalin 75 MG Oral Capsule [Lyrica] Lyrica 02/20/2020 12:00:00 AM EST ORAL active [facility] ([facility]) 20 mg 02/20/2020 12:00:00 AM EST [...] Pregabalin 02/17/2020 12:00:00 AM EST active [facility] ([facility]) apixaban 2.5 MG Oral Tablet [Eliquis] Eliquis 02/17/2020 12:00:00 AM EST ORAL active [facility] ([facility]) Levothyroxine Sodium 0.112 MG Oral Tablet Levothyroxine Sodi um 02/17/2020 12:00:00 AM EST ORAL active M EDENT ([facility]) Finasteride 5 MG Oral Tablet Finasteride 02/17/2020 12:00:00 AM EST ORAL active MED[facility] ([facility]) 24 HR metoprolol succinate 50 MG Extended Release Oral Tablet Metoprolol Succinate ER 02/17/2020 12:00:00 AM EST ORAL active MED[facility] ([facility]) Allopurinol 300 MG Oral Tablet Allopurinol 02/17/2020 12:00:00 AM EST ORAL active MED[facility] ([facility]) pantoprazole 40 MG Delayed Release Oral Tablet Pantoprazole Sodium 02/17/2020 12:00:00 AM EST ORAL active M EDENT ([facility]) Tamsulosin hydrochloride 0.4 MG Oral Capsule Tamsulosin HCL 02/17/2020 12:00:00 AM EST active [facility] ([facility]) Aspirin 81 MG Delayed Release Oral Tablet Aspirin 02/17/2020 1 2:00:00 AM EST ORAL active [facility] ([facility]) Centrum Silver 50+Men 02/17/2020 12:00:00 AM EST ORAL active [facility] ([facility]) Fish Oil 02/17/2020 12:00:00 AM EST ORAL active [facility] ([facility]) Sulfamethoxazole 800 MG / Trimethoprim 1 60 MG Oral Tablet [Bactrim] Bactrim DS 800-160 MG Bactrim DS 800-160 MG 02/13/2020 12:00:00 AM EST 1.0 {table t} suspended Bactrim DS 800-160 MG eCW1 ( [facility]) Finasteride 5 MG Oral Tablet Finasteride 5 MG 02/13/2020 12:00:00 A M EST 1.0 {tablet} active Finasteride 5 MG eCW1 ( [facility]) Sulfamethoxazole 800 MG / Trimethoprim 1 60 MG Oral Tablet [Bactrim] Bactrim DS 800-160 MG Bactrim DS 800-160 MG 02/13/2020 12:00:00 AM EST 1.0 {table t} active Bactrim DS 800-160 MG eCW1 ( [facility]) Sulfamethoxazole 800 MG / Trimethoprim 160 [...] suspended Bactrim DS 800-160 MG eCW1 ( [facility]) Sulfamethoxazole 800 MG / Trimethoprim 1 60 MG Oral Tablet [Bactrim] Bactrim DS 800-160 MG Bactrim DS 800-160 MG 02/13/2020 12:00:00 AM EST 1.0 {table t} active Bactrim DS 800-160 MG eCW1 ( [facility]) Sulfamethoxazole 800 MG / Trimethoprim 1 60 MG Oral Tablet [Bactrim] Bactrim DS 800-160 MG Bactrim DS 800-160 MG 02/13/2020 12:00:00 AM EST 1.0 {table t} suspended Bactrim DS 800-160 MG eCW1 ( [facility]) Finasteride 5 MG Oral Tablet Finasteride 5 MG 02/13/2020 12:00:00 A M EST 1.0 {tablet} active Finasteride 5 MG eCW1 ( [facility]) Finasteride 5 MG Oral Tablet FINASTERIDE [...] suspended Bactrim DS 800-160 MG eCW1 ( [facility]) Finasteride 5 MG Oral Tablet Finasteride 5 MG 02/13/2020 12:00:00 A M EST 1.0 {tablet} active Finasteride 5 MG eCW1 ( [facility]) Finasteride 5 MG Oral Tablet Finasteride 5 MG 02/13/2020 12:00:00 A M EST 1.0 {tablet} active Finasteride 5 MG eCW1 ( [facility]) Finasteride 5 MG Oral Tablet Finasteride 5 MG 02/13/2020 12:00:00 A M EST 1.0 {tablet} active Finasteride 5 MG eCW1 ( [facility]) Finasteride 5 MG Oral Tablet Finasteride 5 MG 02/13/2020 12:00:00 A M EST 1.0 {tablet} active Finasteride 5 MG eCW1 ( [facility]) Sulfamethoxazole 800 MG / Trimethoprim 1 60 MG Oral Tablet [Bactrim] Bactrim DS 800-160 MG Bactrim DS 800-160 MG 02/13/2020 12:00:00 AM EST 1.0 {table t} active Bactrim DS 800-160 MG eCW1 ( [facility]) Finasteride 5 MG Oral Tablet Finasteride 5 MG 02/13/2020 12:00:00 A M EST 1.0 {tablet} active Finasteride 5 MG eCW1 ( [facility]) Insurance Providers Payer name Policy type / Coverage type Policy ID Covered republican ID Covered republican's relationship to olivas Policy [place] Plan Information [employer]/307 [id number] SP [id number] MEDICARE [id number] SP [id number] [place]/307 [id number] SP [id number] [place] 302/307 [id number] SP [id number] [place] 010/510 [id number] [id number] O UNAVAILABLE [place]ILA BLE [place] 010/510 [id number] SP [id number] Problems, Conditions, and Diagnoses Code Display Name Description Problem Type Effective Dates Data Source(s) R94.2 Pulmonary function studies abnormal Pulmonary fu nction studies abnormal Problem 12/13/2020 12:00:00 AM EDT MED[facility] ([facility]) Z87.891 Ex-smoker Ex-smoker Problem 12/13/2020 12:00:00 AM ED T [facility] ([facility]) J47.9 Bronchiolectasis Bronchiolectasis Problem 12/13/2020 12 :00:00 AM EDT MEDENT ([facility]) R91.8 Abnormal findings on diagnostic imaging of lung Abnormal findings on diagnostic imaging of lung Problem 12/13/2020 12:00:00 AM EDT MED[facility] ([facility]) 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 Problem 12/13/2020 12:00:00 AM EDT MED[facility] ([facility]) I47.2 Paroxysmal ventricular tachycardia Paroxysmal ve ntricular tachycardia Problem 11/02/2020 12:00:00 AM EDT [facility] ([facility] Z71.3 Dietary management surveillance Dietary management curtis veillance Problem 09/12/2020 12:00:00 AM EDT MED[facility] ([facility]) B35.1 Onychomycosis Onychomycosis Problem 09/10/2020 12:00:00 [...] 09/05/2020 12:00:00 AM EDT MED[facility] ([facility]) 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 Problem 06/06/2020 12:00:00 AM EST MED[facility] ([facility]) I71.2 Aneurysm of thoracic aorta Aneurysm of thoracic aorta Problem 06/06/2020 12:00:00 AM EST MED[facility] ([facility]) 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 Problem 06/06/2020 12:00:00 AM EST MED[facility] ([facility]) I11.9 Benign hypertensive heart disease Benign hyperte nsive heart disease Problem 02/22/2020 12:00:00 AM EST [facility] ([facility]) 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 Mul ti vessel coronary artery disease Problem 02/22/2020 12:00:00 AM EST [facility] ([facility]) R94.31 Electrocardiogram abnormal Electrocardiogram abnormal Problem 02/22/2020 12:00:00 AM EST [facility] ([facility]) 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 Problem 02/22/2020 12:00:00 AM EST [facility] ([facility]) I49.5 Sinus node dysfunction Sinus node dysfunction Problem 02/22/2020 12:00:00 AM EST [facility] ([facility]) I48.21 Permanent atrial fibrillation Permanent atrial fibrill ation Problem 02/22/2020 12:00:00 AM EST [facility] ([facility]) Z85.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 History of bladder cancer Problem 02/13/2020 12:00:00 AM EST eCW1 ([facility]) N40.0 Benign prostatic hypertrophy without out flow obstruction Benign prostatic hyperplasia without lower urinary tract symptoms Problem 02/12 12:00:00 AM EST eCW1 ([facility]) I25.10 [id number] Coronary artery dise ase involving [place] heart, angina presence unspecified, unspecified vessel or lesion type Problem 020 12:00:00 AM EDT eCW1 ([facility]) I71.4 [id number] Abdominal aortic aneurysm (AAA) without r upture Problem 01/23/2020 12:00:00 AM EDT eCW1 ([facility]) I67.9 [id number] Cerebral vascular disease Problem 01/23/2020 12:00:00 AM EDT eCW1 ([facility]) N40.0 [id number] Benign prostatic hyp erplasia, unspecified whether lower urinary tract symptoms present Problem 01/23/2020 12:00:00 AM EDT eCW1 ([facility]) C67.9 [id number] Malignant neoplasm of urinary bladder, un specified site Problem 01/22/2020 12:00:00 AM EDT eCW1 ([facility]) G62.9 [id number] Peripheral polyneuropathy Problem 01/22/2020 12:00:00 AM EDT eCW1 ([facility]) I10 [id number] Essential hypertension Problem 01/22/2020 12 :00:00 AM EDT eCW1 ([facility]) R13.10 [id number] Esophageal dysphagia Problem 01/22/2020 12:0 0:00 AM EDT eCW1 ([facility]) E03.8 [id number] Other specified hypothyroidism Problem 01/22/2020 12:00:00 AM EDT eCW1 ([facility]) C61 [id number] Prostate cancer Problem 01/22/2020 12:00:00 AM EDT eCW1 ([facility]) Surgeries/Procedures Procedure Description Date Indications Data Source(s) OFFICE OUTPATIENT VISIT 25 MINUTES 01/14/2021 12:00:00 AM EDT [facility] ([facility]) Chronic Care Management Services Ea Addl 20 Min 2020 12:00:00 AM EDT MED[facility] ([facility]) Chronic Care MGMT 20 Mins Clinical Staff Time Per Calendar M ont 12/26/2020 12:00:00 AM EDT [facility] ([facility] DEBRIDEMENT NAIL ANY METHOD 6/> 12/14/2020 12:00:00 AM EDT [facility] ([facility] OFFICE OUTPATIENT VISIT 25 MINUTES 12/13/2020 12:00:00 AM EDT [facility] ([facility], ) OFFICE OUTPATIENT VISIT 25 MINUTES 12/07/2020 12:00:00 AM EDT [facility] ([facility]) INTERROGATION EVAL REMOTE </90 D 1/2/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 12/05 12:00:00 AM EDT [facility] ([facility]) INTERROGATION EVAL REMOTE </90 D 1/2/> LD CVDFB 2020 12:00:00 AM EDT [facility] ([facility]) Chronic Care MGMT 20 Mins Clinical Staff Time Per Calendar M cox monett 11/13/2020 12:00:00 AM EDT [facility] ([facility]) Trans Care SRV W/I 14D Of DC, Comm W/I 2 Dys Med Rec 11/09/2020 12:00:00 AM EDT MED[facility] ([facility] ) OFFICE OUTPATIENT VISIT 25 MINUTES 11/02/2020 12:00:00 AM EDT [facility] ([facility]) Chronic Care MGMT 20 Mins Clinical Staff Time Per Calendar M cox monett 10/25/2020 12:00:00 AM EDT [facility] ([facility]) Med: Lidocaine Jelly 2% 6ml Intravesically (Glydo) 09/24/2020 12:00:00 AM EDT eCW1 ([facility]) Chronic Care MGMT 20 Mins Clinical Staff Time Per Calendar M cox monett 09/17/2020 12:00:00 AM EDT [facility] ([facility]) ECG ROUTINE ECG W/LEAST 12 LDS W/I&R 09/12/2020 12:00: 00 AM EDT [facility] ([facility]) OFFICE OUTPATIENT VISIT 25 MINUTES 09/12/2020 12:00:00 AM EDT [facility] ([facility]) Aggarwal Cre SRV W/I 7 Days Of DC, Comm W/I 2 Dys Med Rec 09/07/2020 12:00:00 AM EDT MEDENT ([facility] ) PROGRAM EVAL IMPLANTABLE IN PERSN DUAL LD PACER 2020 12:00:00 AM EDT [facility] ([facility]) Diabetic Foot Exam 09/04/2020 12:00:00 AM EDT MED[facility] ([facility]) DEBRIDEMENT NAIL ANY METHOD 6/> 09/04/2020 12:00:00 AM EDT [facility] ([facility] FALLS RISK ASSESSMENT DOCUMENTED 09/04/2020 12:00:00 A M EDT [facility] ([facility] OFFICE OUTPATIENT NEW 30 MINUTES 09/04/2020 12:00:00 A M EDT [facility] ([facility] OFFICE OUTPATIENT VISIT 25 MINUTES 08/21/2020 12:00:00 AM EDT MED[facility] ([facility]) Chronic Care MGMT 20 Mins Clinical Staff Time Per Calendar M cox monett 08/17/2020 12:00:00 AM EDT [facility] ([facility]) OFFICE OUTPATIENT VISIT 5 MINUTES 07/26/2020 12:00:00 AM EDT [facility] ([facility]) Chronic Care MGMT 20 Mins Clinical Staff Time Per Calendar M cox monett 07/16/2020 12:00:00 AM EDT [facility] ([facility]) OFFICE OUTPATIENT VISIT 5 MINUTES 07/12/2020 12:00:00 AM EDT [facility] ([facility]) OFFICE OUTPATIENT NEW 45 MINUTES 07/10/2020 12:00:00 A M EDT MEDENT ([facility], ) Trans Care SRV W/I 14D Of DC, Comm W/I 2 Dys Med Rec 07/09/2020 12:00:00 AM EDT MED[facility] ([facility] ) Chronic Care Management Services Ea Addl 20 Min 2020 12:00:00 AM EST [facility] ([facility]) Chronic Care MGMT 20 Mins Clinical Staff Time Per Calendar M ont 06/13/2020 12:00:00 AM EST [facility] ([facility]) ECG ROUTINE ECG W/LEAST 12 LDS W/I&R 06/06/2020 12:00: 00 AM EST [facility] ([facility]) PROGRAM EVAL IMPLANTABLE IN PERSN DUAL LD PACER 2020 12:00:00 AM EST [facility] ([facility]) OFFICE OUTPATIENT VISIT 25 MINUTES 06/06/2020 12:00:00 AM EST [facility] ([facility]) OFFICE OUTPATIENT VISIT 5 MINUTES 05/03/2020 12:00:00 AM EST [facility] ([facility]) Chronic Care Management Services Ea Addl 20 Min 2020 12:00:00 AM EST [facility] ([facility]) Chronic Care MGMT 20 Mins Clinical Staff Time Per Calendar M ont 04/27/2020 12:00:00 AM EST MED[facility] ([facility]) ECHO TTHRC R-T 2D W/WOM-MODE COMPL SPEC&COLR DOP 03/29 12:00:00 AM EST [facility] ([facility]) Bronchospasm Evaluation 03/21/2020 12:00:00 AM EST MEDENT ([facility], ) Maximum Breathing Capacity, Maximal Voluntary Ventilation 03/21/2020 12:00:00 AM EST [facility] ([facility] ) Plethysmography Determination Lung Volumes & Per Airway Resi st 03/21/2020 12:00:00 AM EST [facility] ([facility], ) DIFFUSING CAPACITY 03/21/2020 12:00:00 AM EST MED[facility] ([facility], ) Spirometry 03/20/2020 12:00:00 AM EST M EDENT ([facility], ) ECG ROUTINE ECG W/LEAST 12 LDS W/I&R 02/22/2020 12:00: 00 AM EST [facility] ([facility]) PROGRAM EVAL IMPLANTABLE IN PERSN DUAL LD PACER 2019 12:00:00 AM EST [facility] ([facility]) Results ID Date Data Source [id number] 01/14/2021 03:33:00 PM EDT MED[facility] ([facility]) Name Value Range Interpretation Code Description Data Anila rce(s) Supporting Document(s) Leukocytes [#/volume] in Blood by Automated count 6.7 x10*3/UL 4.1-10 .9 [facility] ([facility]) NOTE: CBC VERIFIED Hematocrit [Volume Fraction] of Blood by Automated count 28.2 % 3 7.0-51.0 [facility] Erythrocytes [#/volume] in Blood by Automated count 3.32 x10*6/UL 4.2 0-6.30 [facility] Hemoglobin [Mass/volume] in Blood 9.6 g/dL 12.0-18.0 [facility] MCV 84.9 fL 80.0-97.0 MED[facility] ([facility]) MCH 29.0 pg 26.0-32.0 MED[facility] ([facility]) MCHC 34.2 g/dL 31.0-38.0 [facility] ([facility]) Erythrocyte distribution width [Ratio] by Automated count 14.4 % 11.6-13.7 [facility] Platelets [#/volume] in Blood by Automated count 317 x10*3/UL 140-440 [facility] MPV 8.2 FL 7.8-11.0 [facility] Lymph % 14.7 % 10.0-58.5 [facility] ([facility]) Lymph # 1.0 x10*3/UL 0.6-4.1 [facility] ([facility]) Neut % 80.5 % 37.0-92.0 [facility] ([facility]) Mid % 4.8 % 1.7-9.3 [facility] Neut # 5.4 x10*3/UL 2.0-7.8 [facility] ([facility]) Mid # 0.3 x10*3/UL 0.1-0.6 [facility] ([facility]) ID Date Data Source [id number] 01/14/2021 03:33:00 PM EDT [facility] ([facility]) Name Value Range Interpretation Code Description Data Anila rce(s) Supporting Document(s) Thyrotropin [Units/volume] in Serum or Plasma by Detec tion limit <= 0.05 mIU/L 3.74 uIU/mL 0.36-3.74 [facility] ([facility] ) ID Date Data Source [id number] 01/14/2021 03:33:00 PM EDT [facility] ([facility]) Name Value Range Interpretation Code Description Data Anila rce(s) Supporting Document(s) Glucose [Mass/volume] in Serum or Plasma 132 mg/dL 74-99 [facility] ([facility]) 100-125 mg/dL PRE-DIABETES/FASTING >126 mg/dL DIABETES/FASTING Urea nitrogen [Mass/volume] in Serum or Plasma 27 mg/dL 7-18 [facility] ([facility]) Creatinine 1.8 mg/dL 0.6-1.3 MED[facility] ([facility]) Sodium [Moles/volume] in Serum or Plasma 143 meq/L 136-145 [facility] ([facility]) Potassium [Moles/volume] in Serum or Plasma 3.9 meq/L 3.5-5.1 [facility] ([facility]) Chloride [Moles/volume] in Serum or Plasma 105 meq/L 98-107 [facility] ([facility]) Carbon dioxide, total [Moles/volume] in Serum or Plasma 29 meq/L 21 -32 [facility] ([facility]) Calcium [Mass/volume] in Serum or Plasma 8.8 mg/dL 8.5-10.1 [facility] ([facility]) Glomerular filtration rate/1.73 sq M pre dicted among non-blacks [Volume Rate/Area] in Serum or Plasma by Creatinine-based formula (MDRD) 36 mL/min MED[facility] ([facility]) Glomerular filtration rate/1.73 sq M pre dicted among blacks [Volume Rate/Area] in Serum or Plasma by Creatinine-based formula (MDRD) 43 mL/min MED[facility] ([facility]) <content>CHRONIC KIDNEY DISEASE STAGING PER NKF</content>
<content></content>
<content>STAGE I & II GFR >= 60 NORMAL TO MILDLY DECREASED</content>
<content>STAGE III GFR 30-59 MODERATELY DECREASED</content>
<content>STAGE IV GFR 15-29 SEVERELY DECREASED</content>
<content>STAGE V GFR <15 VERY LITTLE GFR LEFT</content>
<content>ESRD GFR <15 ON FIREPROOF DOOR ASSEMBLER</content>
<content></content> ID Date Data Source [id number] 01/14/2021 03:33:00 PM EDT MED[facility] ([facility]) Name Value Range Interpretation Code Description Data Anila rce(s) Supporting Document(s) Natriuretic peptide B [Mass/volume] in Serum or Plasma 651.0 pg/mL 0.0-100.0 [facility] ([facility]) ID Date Data Source [id number] 12/07/2020 02:12:00 PM EDT [facility] ([facility]) Name Value Range Interpretation Code Description Data Anila rce(s) Supporting Document(s) Ferritin [Mass/volume] in Serum or Plasma 219 ng/mL 26-388 [facility] ([facility]) <content>note:<nlbl:demographic_changed> </content>
<content></content> ID Date Data Source [id number] 12/07/2020 02:12:00 PM EDT [facility] ([facility]) Name Value Range Interpretation Code Description Data Anila rce(s) Supporting Document(s) Iron (Fe) 63 ug/dL 65-175 [facility]) Total Iron Binding Capacity 220 ug/dL 250-450 ME DENT ([facility]) Percent Saturation 28.6 % 19.7-50.0 [facility] ([facility]) ID Date Data Source [id number] 12/07/2020 02:10:00 PM EDT MED[facility] ([facility]) Name Value Range Interpretation Code Description Data Anila rce(s) Supporting Document(s) Thyrotropin [Units/volume] in Serum or Plasma by Detec tion limit <= 0.05 mIU/L 5.46 uIU/mL 0.36-3.74 [facility] ([facility] ) ID Date Data Source [id number] 12/07/2020 02:10:00 PM EDT [facility] ([facility]) Name Value Range Interpretation Code Description Data Anila rce(s) Supporting Document(s) Glucose [Mass/volume] in Serum or Plasma 118 mg/dL 74-99 [facility] ([facility]) 100-125 mg/dL PRE-DIABETES/FASTING >126 mg/dL DIABETES/FASTING Urea nitrogen [Mass/volume] in Serum or Plasma 35 mg/dL 7-18 [facility] ([facility]) Creatinine 1.8 mg/dL 0.6-1.3 [facility] Sodium [Moles/volume] in Serum or Plasma 141 meq/L 136-145 [facility] ([facility]) Carbon dioxide, total [Moles/volume] in Serum or Plasma 31 meq/L 21 -32 [facility] ([facility]) Chloride [Moles/volume] in Serum or Plasma 106 meq/L 98-107 [facility] ([facility]) Potassium [Moles/volume] in Serum or Plasma 4.2 meq/L 3.5-5.1 [facility] ([facility]) Calcium [Mass/volume] in Serum or Plasma 9.2 mg/dL 8.5-10.1 [facility] ([facility]) Alkaline phosphatase isoenzyme [Units/volume] in Serum or Pl asma 105 mg/dL 46-116 [facility] ([facility]) Aspartate aminotransferase [Enzymatic activity/volume] in Serum or Plasma 20 U/L 15-37 [facility] ([facility] ) Total Bilirubin 0.4 mg/dL 0.2-1.0 [facility] Alanine aminotransferase [Enzymatic activity/volume] in Seru m or Plasma 18 U/L 12-78 MED[facility] ([facility]) Proteinase 3 Ab [Units/volume] in Serum 7.8 g/dL 6.4-8.2 [facility] Albumin [Mass/volume] in Serum or Plasma 2.8 g/dL 3.4-5.0 [facility] A/G Ratio 0.56 CALC 1.00-1.90 MED[facility] ([facility]) Glomerular filtration rate/1.73 sq M pre dicted among non-blacks [Volume Rate/Area] in Serum or Plasma by Creatinine-based formula (MDRD) 36 mL/min [facility] Glomerular filtration rate/1.73 sq M pre dicted among blacks [Volume Rate/Area] in Serum or Plasma by Creatinine-based formula (MDRD) 43 mL/min [facility] <content>CHRONIC KIDNEY DISEASE STAGING PER NKF</content>
<content></content>
<content>STAGE I & II GFR >= 60 NORMAL TO MILDLY DECREASED</content>
<content>STAGE III GFR 30-59 MODERATELY DECREASED</content>
<content>STAGE IV GFR 15-29 SEVERELY DECREASED</content>
<content>STAGE V GFR <15 VERY LITTLE GFR LEFT</content>
<content>ESRD GFR <15 ON FIREPROOF DOOR ASSEMBLER</content>
<content></content> ID Date Data Source [id number] 12/07/2020 02:10:00 PM EDT [facility] Name Value Range Interpretation Code Description Data Anila rce(s) Supporting Document(s) Magnesium 1.7 mg/dL 1.8-2.4 MED[facility] ([facility]) Natriuretic peptide B [Mass/volume] in Serum or Plasma 568.0 pg/mL 0.0-100.0 [facility] ID Date Data Source [id number] 12/07/2020 02:10:00 PM EDT [facility] ([facility]) Name Value Range Interpretation Code Description Data Anila rce(s) Supporting Document(s) Leukocytes [#/volume] in Blood by Automated count 6.7 x10*3/UL 4.1-10 .9 [facility] ([facility]) NOTE: CBC VERIFIED Erythrocytes [#/volume] in Blood by Automated count 3.37 x10*6/UL 4.2 0-6.30 [facility] ([facility]) Hematocrit [Volume Fraction] of Blood by Automated count 29.3 % 3 7.0-51.0 [facility] Hemoglobin [Mass/volume] in Blood 10.2 g/dL 12.0-18.0 [facility] ([facility]) MCV 87.0 fL 80.0-97.0 [facility] MCH 30.2 pg 26.0-32.0 [facility] ([facility]) MCHC 34.7 g/dL 31.0-38.0 [facility] ([facility]) Platelets [#/volume] in Blood by Automated count 241 x10*3/UL 140-440 [facility] Erythrocyte distribution width [Ratio] by Automated count 14.9 % 11.6-13.7 [facility] ([facility]) MPV 8.6 FL 7.8-11.0 [facility] Lymph % 22.7 % 10.0-58.5 [facility] Mid % 6.1 % 1.7-9.3 [facility] Neut % 71.2 % 37.0-92.0 [facility] Lymph # 1.5 x10*3/UL 0.6-4.1 [facility] ([facility]) Mid # 0.4 x10*3/UL 0.1-0.6 [facility] ([facility]) Neut # 4.8 x10*3/UL 2.0-7.8 [facility] ([facility]) ID Date Data Source [id number] 12/07/2020 01:05:00 PM EDT [facility] Name Value Range Interpretation Code Description Data Anila rce(s) Supporting Document(s) Magnesium Level 1.7 [facility] ([facility]) Thyroid Stimulating Hormone 5.46 ME DENT ([facility]) Natriuretic peptide.B prohormone N-Terminal [Mass/volu me] in Serum or Plasma 568.0 MED[facility] ([facility]) ID Date Data Source [id number] 12/07/2020 01:05:00 PM EDT [facility] ([facility] Name Value Range Interpretation Code Description Data Anila rce(s) Supporting Document(s) Albumin [Mass/volume] in Serum or Plasma 2.8 [facility] ([facility]) Alanine aminotransferase [Enzymatic activity/volume] in Serum or Pl asma 18 MED[facility] ([facility]) Carbon dioxide, total [Moles/volume] in Serum or Plasma 31 [facility] ([facility]) Calcium [Mass/volume] in Serum or Plasma 9.2 [facility] ([facility]) Chloride [Moles/volume] in Serum or Plasma 106 [facility] ([facility]) Alkaline phosphatase [Enzymatic activity/volume] in Serum or Plasma 1 05 [facility] ([facility]) Potassium [Moles/volume] in Serum or Plasma 4.2 [facility] ([facility]) Protein [Mass/volume] in Serum or Plasma 7.6 [facility] ([facility]) Urea nitrogen [Mass/volume] in Serum or Plasma 35 [facility] ([facility]) Aspartate aminotransferase [Enzymatic activity/volume] in Serum or Plasma 20 [facility] ([facility]) Sodium 141 [facility] ([facility]) Creatinine For GFR 1.8 [facility] ([facility]) Glucose 118 74-99 [facility] ([facility]) ID Date Data Source [id number] 12/07/2020 01:05:00 PM EDT [facility] ([facility]) Name Value Range Interpretation Code Description Data Anila rce(s) Supporting Document(s) Red Blood Count 3.37 4.20-6.30 [facility] ([facility]) White Blood Count 6.7 4.1-10.9 [facility] ([facility]) Hemoglobin 10.2 12.0-18.0 [facility] ([facility]) Platelets 241 140-440 [facility] Hematocrit 29.3 37.0-51.0 [facility] ([facility]) ID Date Data Source [id number] 11/30/2020 04:10:00 PM EDT [facility] ([facility] Name Value Range Interpretation Code Description Data Anila rce(s) Supporting Document(s) Appearance, Urine RFX Laboratory test result [facility] Color, Urine RFX Laboratory test result [facility] PH,Urine RFX 8.0 units 5.0-9.0 [facility] Specific [place] Ur Auto RFX 1.021 1.002-1.035 [facility] Protein, Urine Auto RFX Laboratory test result [facility] Glucose, Urine (Ua) Auto RFX Laboratory test result [facility] Ketone, Urine Auto RFX Laboratory test result [facility] Urobilinogen, Urine Auto RFX 0.2 mg/dL 0.0-2.0 [facility] Nitrite, Urine Auto RFX Laboratory test result [facility] Bilirubin, Urine Auto RFX Laboratory test result [facility] ([facility]) Leukocyte Esterase Ur Auto RFX Laboratory test result [facility] Blood, Urine Blood RFX Laboratory test result [facility] WBC, Urine Auto RFX 0 /HPF 0-3 [facility] ([facility]) RBC, Urine Auto RFX 4 /HPF 0-3 [facility] Bacteria, Urine Auto RFX Laboratory test result [facility] ([facility]) Hyaline Cast, Urine Auto RFX 0 /LPF 0-1 M EDENT ([facility] Squam Epithelial Cell Ur Aurfx 0 /HPF 0-6 [facility] ([facility]) ID Date Data Source [id number] 11/30/2020 04:10:00 PM EDT [facility] ([facility] Name Value Range Interpretation Code Description Data Anila rce(s) Supporting Document(s) Influenza A Amplification Laboratory test result [facility] Negative results do not preclude influen za or RSV virus infection and should not be used as the sole basis for treatment or other patient management decisions. Influenza B Amplification Laboratory test result [facility] Negative results do not preclude influen za or RSV virus infection and should not be used as the sole basis for treatment or other patient management decisions. RSV Amplification Laboratory test result [facility] Negative results do not preclude influen za or RSV virus infection and should not be used as the sole basis for treatment or other patient management decisions. Laboratory test finding (navigational concept) Laboratory test result [facility] A false negative result may occur if [...] pathogens. DISCLAIMER: Testing was performed using the [employer] SARS-CoV-2 test. This test was developed and its performance characteristics determined by [employer]. This test has not been FDA cleared [...] or revoked sooner. ID Date Data Source [id number] 11/30/2020 04:10:00 PM EDT [facility] Name Value Range Interpretation Code Description Data Anila rce(s) Supporting Document(s) SARS coronavirus 2 RNA [Presence] in Res piratory specimen by HAIR with probe detection NEGATIVE [facility] This lab was ordered by [facility] a nd reported by [facility]. ID Date Data Source [id number] 11/30/2020 04:10:00 PM EDT [facility] Name Value Range Interpretation Code Description Data Anila rce(s) Supporting Document(s) SARS-CoV-2 (COVID 19) NEGATIVE - SARS-CoV-2 (COVID19) [facility] This lab was ordered by [facility] a nd reported by [facility]. ID Date Data Source [id number] 11/30/2020 11:09:00 AM EDT [facility] ([facility]) Name Value Range Interpretation Code Description Data Anila rce(s) Supporting Document(s) Laboratory test finding (navigational concept) 141 meq/L 136-145 [facility] ([facility]) Laboratory test finding (navigational concept) 33.0 % 38.0-51.0 [facility] ([facility]) Laboratory test finding (navigational concept) 108 mg/dL 70-105 [facility] ([facility]) Laboratory test finding (navigational concept) 4.6 mg/dL 4.5-5.3 [facility] ([facility]) Laboratory test finding (navigational concept) 4.7 meq/L 3.5-5.1 [facility] ([facility]) Laboratory test finding (navigational concept) 28.0 MM/L 23.0-27.0 [facility] ([facility]) Laboratory test finding (navigational concept) 101 meq/L 98-109 [facility] ([facility]) Laboratory test finding (navigational concept) 1.4 mg/dL 0.6-1.3 [facility] ([facility]) Laboratory test finding (navigational concept) 28 mg/dL 8-26 [facility] ([facility]) ID Date Data Source [id number] 11/30/2020 10:52:00 AM EDT [facility] ([facility] Name Value Range Interpretation Code Description Data Anila rce(s) Supporting Document(s) White Blood Count 9.2 10 4.0-10.0 [facility] ([facility]) Hemoglobin 11.1 g/dL 13.5-17.5 [facility] Red Blood Count 3.75 10 4.30-6.10 [facility] ([facility]) Hematocrit 34.8 % 42.0-52.0 [facility] Mean Corpuscular Volume 92.8 fl 80.0-96.0 [facility] ([facility]) Mean Corpuscular Hemoglobin 29.6 pg 27.0-33.0 [facility] ([facility]) Mean Corpuscular HGB Conc 31.9 g/dL 32.0-36.5 [facility] ([facility]) Platelet Count, Automated 249 10 150-450 [facility] ([facility]) Red Cell Distribution Width 15.8 % 11.5-14.5 [facility] ([facility]) Lymph % 16.9 % 24.0-44.0 [facility] Neutrophils % 72.3 % 36.0-66.0 [facility] Eos % 2.8 % 0.0-3.0 [facility]) [place] % 7.2 % 2.0-8.0 [facility] Baso % 0.5 % 0.0-1.0 [facility] Immature Granulocyte % 0.3 % 0-3.0 [facility] ([facility]) Nucleated Red Blood Cell % 0.0 % 0-0 MED ENT ([facility]) Neutrophils # 6.7 10 1.5-8.5 [facility] ([facility]) Lymph # 1.6 10 1.5-5.0 [facility]) [place] # 0.7 10 0.0-0.8 [facility] Eos # 0.3 10 0.0-0.5 [facility] Baso # 0.1 10 0.0-0.2 [facility] ID Date Data Source [id number] 11/30/2020 10:52:00 AM EDT MEDENT ([facility]) Name Value Range Interpretation Code Description Data Anila rce(s) Supporting Document(s) Ast/Sgot 34 U/L 7-37 [facility] Alt/SGPT 27 U/L 12-78 MED[facility] ([facility]) Alkaline Phosphatase 139 U/L 45-117 MED[facility] ([facility]) Bilirubin,Total 0.6 mg/dL 0.2-1.0 MEDENT ([facility]) Bilirubin,Direct 0.2 mg/dL 0.0-0.2 MEDENT ([facility]) Albumin 2.7 GM/DL 3.2-5.2 MEDENT ([facility]) Total Protein 7.8 GM/DL 6.4-8.2 MED[facility] ([facility]) Albumin/Globulin Ratio 0.5 MED[facility] ([facility]) ID Date Data Source [id number] 11/30/2020 10:52:00 AM EDT MEDENT ([facility]) Name Value Range Interpretation Code Description Data Anila rce(s) Supporting Document(s) Lipoprotein lipase [Enzymatic activity/volume] in Serum or P lasma 172 U/L 73-393 [facility] <content>note:<nlbl:demographic_changed></content>
<content>note:<nlbl:demog raphic_changed></content>
<content>note:<nlbl:demographic_changed></content>
<content></content> Natriuretic peptide.B prohormone N-Terminal [Mass/volu me] in Serum or Plasma 1331 pg/mL [facility] <content>note:<nlbl:demographic_changed></content>
<content>note:<nlbl:demog raphic_changed></content>
<content>note:<nlbl:demographic_changed></content>
<content></content> ID Date Data Source [id number] 11/02/2020 09:17:00 AM EDT MED[facility] ([facility]) Name Value Range Interpretation Code Description Data Anila rce(s) Supporting Document(s) Magnesium [Mass/volume] in Serum or Plasma 2.2 mg/dL 1.8-2.4 MEDENT ([facility]) <content>note:<nlbl:demographic_changed> </content>
<content></content> ID Date Data Source [id number] 11/02/2020 09:17:00 AM EDT MED[facility] ([facility]) Name Value Range Interpretation Code Description Data Anila rce(s) Supporting Document(s) Glucose, Fasting 114 mg/dL 70-100 [facility] Blood Urea Nitrogen 21 mg/dL 7-18 [facility] ([facility]) Glomerular Filtration Rate 58.7 MED ENT ([facility]) <content>Units are mL/min/1.73 m2</content>
<content></content>
<content>Chronic Kidney Disease Staging per NKF:</content>
<content></content>
<content>Stage I & II GFR >=60 Normal to Mildly Decreased</content>
<content>Stage III GFR 30- 59 Moderately Decreased</content>
<content>Stage IV GFR 15-29 Severely Decreased</content>
<content>Stage V GFR <15 Very Little GFR Left</content>
<content>ESRD GFR <15 on FIREPROOF DOOR [employer]SEMBLER</content>
<content></content> Creatinine For GFR 1.24 mg/dL 0.70-1.30 MEDENT ([facility]) Sodium Level 143 meq/L 136-145 [facility] ([facility]) Potassium Serum 5.1 meq/L 3.5-5.1 [facility] ([facility]) Testing was performed on an icteric spec imen. Testing was performed on a SLIGHTLY hemolyzed specimen. Suggest recollection of specimen for more accurate test results. Chloride Level 108 meq/L 98-107 [facility] Carbon Dioxide Level 28 meq/L 21-32 [facility] ([facility]) Anion Gap 7 meq/L 8-16 [facility] Calcium Level 9.5 mg/dL 8.8-10.2 [facility] Alt/SGPT 28 U/L 12-78 [facility] Ast/Sgot 43 U/L 7-37 [facility] Bilirubin,Total 0.5 mg/dL 0.2-1.0 [facility] ([facility]) Alkaline Phosphatase 138 U/L 45-117 [facility] ([facility]) Total Protein 7.9 GM/DL 6.4-8.2 [facility] ([facility]) Albumin/Globulin Ratio 0.7 MED[facility] ([facility]) Albumin 3.2 GM/DL 3.2-5.2 [facility] ([facility]) ID Date Data Source [id number] 10/19/2020 11:11:00 PM EDT [facility] Name Value Range Interpretation Code Description Data Anila rce(s) Supporting Document(s) SARS coronavirus 2 RNA [Presence] in Res piratory specimen by HAIR with probe detection NEGATIVE [facility] This lab was ordered by [facility] a nd reported by [facility]. ID Date Data Source [id number] 09/27/2020 03:27:00 PM EDT MEDENT ([facility]) Name Value Range Interpretation Code Description Data Anila rce(s) Supporting Document(s) Bacteria identified in Wound shallow by Aerobe culture Laborator y test result MEDENT ([facility]) <content>FULL REPORT IN LAB NOTES (eCW [...]
<content>CLIDAMYCIN SENSITIVE.</content>
<content></content> ID Date Data Source [id number] 09/27/2020 02:48:00 PM EDT [facility] Name Value Range Interpretation Code Description Data Anila rce(s) Supporting Document(s) C reactive protein [Mass/volume] in Serum or Plasma by High sensitivity method 0.46 mg/dL 0.00-0.30 MED[facility] ([facility] ) <content>note:<nlbl:demographic_changed> </content>
<content></content> ID Date Data Source [id number] 09/27/2020 02:48:00 PM EDT [facility] ([facility] Name Value Range Interpretation Code Description Data Anila rce(s) Supporting Document(s) Urea nitrogen [Mass/volume] in Serum or Plasma 35 mg/dL 7-18 MED[facility] ([facility]) NOTE: BUN,CREAT,ALB,T.PROTEIN VERIFIED Glucose [Mass/volume] in Serum or Plasma 127 mg/dL 74-99 MED[facility] ([facility]) 100-125 mg/dL PRE-DIABETES/FASTING >126 mg/dL DIABETES/FASTING Creatinine 1.4 mg/dL 0.6-1.3 [facility]) Sodium [Moles/volume] in Serum or Plasma 140 meq/L 136-145 [facility] ([facility]) Potassium [Moles/volume] in Serum or Plasma 3.7 meq/L 3.5-5.1 [facility] ([facility]) Calcium [Mass/volume] in Serum or Plasma 9.3 mg/dL 8.5-10.1 [facility] ([facility]) Carbon dioxide, total [Moles/volume] in Serum or Plasma 35 meq/L 21 -32 [facility] ([facility]) Chloride [Moles/volume] in Serum or Plasma 102 meq/L 98-107 [facility] ([facility]) Alkaline phosphatase isoenzyme [Units/volume] in Serum or Pl asma 125 mg/dL 46-116 [facility] ([facility]) NOTE: RESULT VERIFIED. Total Bilirubin 0.6 mg/dL 0.2-1.0 MED[facility] ([facility]) Albumin [Mass/volume] in Serum or Plasma 3.2 g/dL 3.4-5.0 [facility] ([facility]) Aspartate aminotransferase [Enzymatic activity/volume] in Serum or Plasma 32 U/L 15-37 MED[facility] ([facility] ) Alanine aminotransferase [Enzymatic activity/volume] in Seru m or Plasma 21 U/L 12-78 [facility] ([facility]) Proteinase 3 Ab [Units/volume] in Serum 8.4 g/dL 6.4-8.2 [facility] ([facility]) Glomerular filtration rate/1.73 sq M pre dicted among non-blacks [Volume Rate/Area] in Serum or Plasma by Creatinine-based formula (MDRD) 48 mL/min [facility] A/G Ratio 0.62 CALC 1.00-1.90 [facility] Glomerular filtration rate/1.73 sq M pre dicted among blacks [Volume Rate/Area] in Serum or Plasma by Creatinine-based formula (MDRD) 58 mL/min [facility] <content>CHRONIC KIDNEY DISEASE STAGING PER NKF</content>
<content></content>
<content>STAGE I & II GFR >= 60 NORMAL TO MILDLY DECREASED</content>
<content>STAGE III GFR 30-59 MODERATELY DECREASED</content>
<content>STAGE IV GFR 15-29 SEVERELY DECREASED</content>
<content>STAGE V GFR <15 VERY LITTLE GFR LEFT</content>
<content>ESRD GFR <15 ON FIREPR[employer]OR [employer]BLER</content>
<content></content> ID Date Data Source [id number] 09/27/2020 02:48:00 PM EDT MED[facility] ([facility]) Name Value Range Interpretation Code Description Data Anila rce(s) Supporting Document(s) Leukocytes [#/volume] in Blood by Automated count 6.5 x10*3/UL 4.1-10 .9 [facility] ([facility]) NOTE: CBC VERIFIED Hematocrit [Volume Fraction] of Blood by Automated count 34.1 % 3 7.0-51.0 MEDENT ([facility]) Hemoglobin [Mass/volume] in Blood 11.6 g/dL 12.0-18.0 [facility] ([facility]) Erythrocytes [#/volume] in Blood by Automated count 3.88 x10*6/UL 4.2 0-6.30 MED[facility] ([facility]) MCV 87.9 fL 80.0-97.0 [facility]) MCH 30.0 pg 26.0-32.0 [facility]) Erythrocyte distribution width [Ratio] by Automated count 14.5 % 11.6-13.7 [facility] ([facility]) Platelets [#/volume] in Blood by Automated count 241 x10*3/UL 140-440 MED[facility] ([facility]) MCHC 34.1 g/dL 31.0-38.0 [facility]) MPV 8.3 FL 7.8-11.0 [facility]) Mid % 7.8 % 1.7-9.3 [facility]) Lymph % 40.0 % 10.0-58.5 [facility]) Mid # 0.5 x10*3/UL 0.1-0.6 [facility] ([facility]) Neut % 52.2 % 37.0-92.0 [facility] Lymph # 2.6 x10*3/UL 0.6-4.1 [facility] ([facility]) Neut # 3.4 x10*3/UL 2.0-7.8 [facility] ([facility]) ID Date Data Source NON DIGITAL DEVELOPER CYTOLOGY REQ FOR SERVI 09/24/2020 12:00:00 AM EDT eC W1 ([facility]) Name Value Range Interpretation Code Description Data Anila rce(s) Supporting Document(s) URINE eCW1 ([facility]) ID Date Data Source [id number] 09/20/2020 03:43:00 PM EDT MEDENT ([facility]) Name Value Range Interpretation Code Description Data Anila rce(s) Supporting Document(s) Abscess Culture Laboratory test result MED[facility] ([facility]) Rx Doxycycline Gram Stain Laboratory test result [facility] ([facility]) Rx Doxycycline ID Date Data Source [id number] 09/07/2020 11:58:00 AM EDT [facility] Name Value Range Interpretation Code Description Data Anila rce(s) Supporting Document(s) Glucose [Mass/volume] in Serum or Plasma 109 mg/dL 74-99 [facility] ([facility]) 100-125 mg/dL PRE-DIABETES/FASTING >126 mg/dL DIABETES/FASTING Urea nitrogen [Mass/volume] in Serum or Plasma 14 mg/dL 7-18 [facility] Creatinine 1.0 mg/dL 0.6-1.3 [facility] ([facility]) Potassium [Moles/volume] in Serum or Plasma 4.2 meq/L 3.5-5.1 [facility] Sodium [Moles/volume] in Serum or Plasma 141 meq/L 136-145 [facility] Chloride [Moles/volume] in Serum or Plasma 104 meq/L 98-107 [facility] Carbon dioxide, total [Moles/volume] in Serum or Plasma 31 meq/L 21 -32 [facility] Calcium [Mass/volume] in Serum or Plasma 8.7 mg/dL 8.5-10.1 [facility] Glomerular filtration rate/1.73 sq M pre dicted among non-blacks [Volume Rate/Area] in Serum or Plasma by Creatinine-based formula (MDRD) Laboratory test result [facility] Glomerular filtration rate/1.73 sq M pre dicted among blacks [Volume Rate/Area] in Serum or Plasma by Creatinine-based formula (MDRD) Laboratory test result [facility] <content>CHRONIC KIDNEY DISEASE STAGING PER NKF</content>
<content></content>
<content>STAGE I & II GFR >= 60 NORMAL TO MILDLY DECREASED</content>
<content>STAGE III GFR 30-59 MODERATELY DECREASED</content>
<content>STAGE IV GFR 15-29 SEVERELY DECREASED</content>
<content>STAGE V GFR <15 VERY LITTLE GFR LEFT</content>
<content>ESRD GFR <15 ON FIREPROOF DOOR ASSEMBLER</content>
<content></content> ID Date Data Source [id number] 09/07/2020 11:58:00 AM EDT [facility] ([facility] Name Value Range Interpretation Code Description Data Anila rce(s) Supporting Document(s) Hemoglobin [Mass/volume] in Blood 10.5 g/dL 12.0-18.0 [facility] NOTE: RESULT VERIFIED. Erythrocytes [#/volume] in Blood by Automated count 3.53 x10*6/UL 4.2 0-6.30 [facility] Leukocytes [#/volume] in Blood by Automated count 7.9 x10*3/UL 4.1-10 .9 [facility] MCV 87.3 fL 80.0-97.0 MED[facility] ([facility]) MCH 29.7 pg 26.0-32.0 MEDENT ([facility]) Hematocrit [Volume Fraction] of Blood by Automated count 30.8 % 3 7.0-51.0 [facility] MCHC 34.1 g/dL 31.0-38.0 [facility] ([facility]) Erythrocyte distribution width [Ratio] by Automated count 13.8 % 11.6-13.7 [facility] Platelets [#/volume] in Blood by Automated count 307 x10*3/UL 140-440 [facility] MPV 8.3 FL 7.8-11.0 MED[facility] ([facility]) Lymph % 13.9 % 10.0-58.5 MED[facility] ([facility]) Mid % 4.5 % 1.7-9.3 [facility] Lymph # 1.1 x10*3/UL 0.6-4.1 [facility] ([facility]) Neut % 81.6 % 37.0-92.0 [facility] Mid # 0.3 x10*3/UL 0.1-0.6 [facility] ([facility]) Neut # 6.5 x10*3/UL 2.0-7.8 [facility] ([facility]) ID Date Data Source [id number] 09/02/2020 03:31:00 PM EDT [facility] ([facility] Name Value Range Interpretation Code Description Data Anila rce(s) Supporting Document(s) Albumin [Mass/volume] in Serum or Plasma 2.4 [facility] ([facility]) Calcium [Mass/volume] in Serum or Plasma 8.7 [facility] ([facility]) Alanine aminotransferase [Enzymatic activity/volume] in Serum or Pl asma 52 MED[facility] ([facility]) Carbon dioxide, total [Moles/volume] in Serum or Plasma 27 [facility] ([facility]) Chloride [Moles/volume] in Serum or Plasma 107 [facility] ([facility]) Protein [Mass/volume] in Serum or Plasma 6.4 [facility] ([facility]) Alkaline phosphatase [Enzymatic activity/volume] in Serum or Plasma 2 11 [facility] ([facility]) Potassium [Moles/volume] in Serum or Plasma 3.9 [facility] ([facility]) Aspartate aminotransferase [Enzymatic activity/volume] in Serum or Plasma 83 [facility] ([facility]) Sodium 140 [facility] ([facility] Urea nitrogen [Mass/volume] in Serum or Plasma 41 [facility] ([facility]) Creatinine For GFR 1.45 [facility] ([facility]) Glucose 122 83-110 [facility] ([facility]) ID Date Data Source [id number] 09/02/2020 03:31:00 PM EDT [facility] ([facility] Name Value Range Interpretation Code Description Data Anila rce(s) Supporting Document(s) Red Blood Count 3.25 4.00-5.40 [facility] ([facility]) White Blood Count 9.2 5.0-10.0 [facility] ([facility]) Platelets 159 172-450 [facility] Hematocrit 30.5 [facility] ([facility]) Hemoglobin 9.7 [facility] ([facility]) ID Date Data Source [id number] 08/29/2020 11:41:00 AM EDT [facility] ([facility]) Name Value Range Interpretation Code Description Data Anila rce(s) Supporting Document(s) Respiratory Panel Laboratory test result [facility] This respiratory PCR panel detects Influ artemio [...] - SARS-CoV-2 (COVID19) ID Date Data Source [id number] 08/29/2020 11:41:00 AM EDT [facility] Name Value Range Interpretation Code Description Data Anila rce(s) Supporting Document(s) SARS-CoV-2 (COVID 19) NEGATIVE - SARS-CoV-2 (COVID19) [facility] This lab was ordered by [facility] a nd reported by [facility]. ID Date Data Source [id number] 08/29/2020 09:52:00 AM EDT [facility] Name Value Range Interpretation Code Description Data Anila rce(s) Supporting Document(s) CPK Creatine Phosphokinase 39 U/L 39-308 [facility] E[facility] ([facility]) MB/CK Relative Index 2.56 [facility] ([facility]) <content>DIAGNOSIS CRITERIA</content>
<content>MMB ng/ml Relative Index (RI)</content>
<content>NON-AMI < or = 5 N/A</content>
<content>CANTU ZONE > 5 < or = 4</content>
<content>AMI > 5 > 4</content>
<content></content> CK-MB Value Mass Laboratory test result [facility] ([facility]) Troponin I Laboratory test result [facility] ([facility]) <content>Troponin I Reference Interval f or Siemens [place] LOCI:</content>
<content></content>
<content>99th Percentile= 0.00-0.045 ng/ml</content>
<content></content>
<content>Risk Stratification:</content>
<content><= 0.10 ng/ml Decreased Risk for Adverse Clinical</content>
<content>Events.</content>
<content>0.10-1.50 ng/ml Increased Risk for Adverse Clinical</content>
<content>Events. Evaluation of additional</content>
<content>criterion and/or repeat testing in 2-6</content>
<content>hours is suggested to rule out myocardial</content>
<content>damage.</content>
<content>>= 1.50 ng/ml Indicative of Myocardial Injury.</content>
<content></content> ID Date Data Source [id number] 08/29/2020 09:52:00 AM EDT [facility] ([facility]) Name Value Range Interpretation Code Description Data Anila rce(s) Supporting Document(s) Ast/Sgot 32 U/L 7-37 [facility] Alt/SGPT 25 U/L 12-78 [facility] ([facility]) Alkaline Phosphatase 154 U/L 45-117 [facility] ([facility]) Total Protein 7.3 GM/DL 6.4-8.2 [facility] ([facility]) Bilirubin,Total 1.5 mg/dL 0.2-1.0 [facility] ([facility]) Bilirubin,Direct 0.6 mg/dL 0.0-0.2 [facility] ([facility]) Albumin/Globulin Ratio 0.8 [facility] ([facility]) Albumin 3.2 GM/DL 3.2-5.2 [facility] ID Date Data Source [id number] 08/29/2020 09:52:00 AM EDT [facility] ([facility]) Name Value Range Interpretation Code Description Data Anila rce(s) Supporting Document(s) Glucose, Fasting 110 mg/dL 70-100 [facility] ([facility]) Blood Urea Nitrogen 35 mg/dL 7-18 [facility] ([facility]) Glomerular Filtration Rate 49.0 [facility] ([facility]) <content>Units are mL/min/1.73 m2</content>
<content></content>
<content>Chronic Kidney Disease Staging per NKF:</content>
<content></content>
<content>Stage I & II GFR >=60 Normal to Mildly Decreased</content>
<content>Stage III GFR 30- 59 Moderately Decreased</content>
<content>Stage IV GFR 15-29 Severely Decreased</content>
<content>Stage V GFR <15 Very Little GFR Left</content>
<content>ESRD GFR <15 on FIREPROOF DOOR ASSEMBLER</content>
<content></content> Creatinine For GFR 1.45 mg/dL 0.70-1.30 [facility] ([facility]) Potassium Serum 4.1 meq/L 3.5-5.1 [facility] ([facility]) Chloride Level 107 meq/L 98-107 [facility] ([facility]) Sodium Level 142 meq/L 136-145 [facility] ([facility]) Anion Gap 6 meq/L 8-16 [facility] Carbon Dioxide Level 29 meq/L 21-32 [facility] Calcium Level 8.4 mg/dL 8.8-10.2 [facility] ([facility]) ID Date Data Source [id number] 08/21/2020 02:33:00 PM EDT [facility] ([facility]) Name Value Range Interpretation Code Description Data Anila rce(s) Supporting Document(s) Glucose [Mass/volume] in Serum or Plasma 109 mg/dL 74-99 [facility] ([facility]) 100-125 mg/dL PRE-DIABETES/FASTING >126 mg/dL DIABETES/FASTING Urea nitrogen [Mass/volume] in Serum or Plasma 27 mg/dL 7-18 [facility] ([facility]) Potassium [Moles/volume] in Serum or Plasma 4.7 meq/L 3.5-5.1 [facility] ([facility]) Creatinine 1.3 mg/dL 0.6-1.3 [facility] ([facility]) Sodium [Moles/volume] in Serum or Plasma 143 meq/L 136-145 [facility] ([facility]) Calcium [Mass/volume] in Serum or Plasma 9.0 mg/dL 8.5-10.1 [facility] ([facility]) Chloride [Moles/volume] in Serum or Plasma 106 meq/L 98-107 [facility] ([facility]) Carbon dioxide, total [Moles/volume] in Serum or Plasma 30 meq/L 21 -32 [facility] ([facility]) Glomerular filtration rate/1.73 sq M pre dicted among non-blacks [Volume Rate/Area] in Serum or Plasma by Creatinine-based formula (MDRD) 52 mL/min [facility] Glomerular filtration rate/1.73 sq M pre dicted among blacks [Volume Rate/Area] in Serum or Plasma by Creatinine-based formula (MDRD) Laboratory test result [facility] <content>CHRONIC KIDNEY DISEASE STAGING PER NKF</content>
<content></content>
<content>STAGE I & II GFR >= 60 NORMAL TO MILDLY DECREASED</content>
<content>STAGE III GFR 30-59 MODERATELY DECREASED</content>
<content>STAGE IV GFR 15-29 SEVERELY DECREASED</content>
<content>STAGE V GFR <15 VERY LITTLE GFR LEFT</content>
<content>ESRD GFR <15 ON FIREPROOF DOOR ASSEMBLER</content>
<content></content> ID Date Data Source [id number] 08/21/2020 02:33:00 PM EDT [facility] ([facility]) Name Value Range Interpretation Code Description Data Anila rce(s) Supporting Document(s) Natriuretic peptide B [Mass/volume] in Serum or Plasma 706.0 pg/mL 0.0-100.0 [facility] ([facility]) ID Date Data Source [id number] 08/21/2020 02:33:00 PM EDT [facility] ([facility]) Name Value Range Interpretation Code Description Data Anila rce(s) Supporting Document(s) Leukocytes [#/volume] in Blood by Automated count 5.5 x10*3/UL 4.1-10 .9 [facility] ([facility]) NOTE: CBC VERIFIED Erythrocytes [#/volume] in Blood by Automated count 3.93 x10*6/UL 4.2 0-6.30 [facility] ([facility]) Hematocrit [Volume Fraction] of Blood by Automated count 34.8 % 3 7.0-51.0 [facility] ([facility]) Hemoglobin [Mass/volume] in Blood 11.8 g/dL 12.0-18.0 [facility] ([facility]) MCV 88.4 fL 80.0-97.0 [facility] MCH 30.2 pg 26.0-32.0 [facility] MCHC 34.1 g/dL 31.0-38.0 [facility] Platelets [#/volume] in Blood by Automated count 170 x10*3/UL 140-440 [facility] ([facility]) MPV 8.8 FL 7.8-11.0 [facility] Erythrocyte distribution width [Ratio] by Automated count 13.9 % 11.6-13.7 [facility] ([facility]) Neut % 63.1 % 37.0-92.0 [facility] Lymph % 29.2 % 10.0-58.5 [facility] Mid % 7.7 % 1.7-9.3 [facility] Mid # 0.5 x10*3/UL 0.1-0.6 [facility] ([facility]) Lymph # 1.6 x10*3/UL 0.6-4.1 [facility] ([facility]) Neut # 3.4 x10*3/UL 2.0-7.8 [facility] ([facility]) ID Date Data Source [id number] 07/18/2020 09:55:00 AM EDT [facility] Name Value Range Interpretation Code Description Data Anila rce(s) Supporting Document(s) SARS coronavirus 2 RNA [Presence] in Res piratory specimen by HAIR with probe detection NEGATIVE [facility] This lab was ordered by [facility] a nd reported by [facility]. ID Date Data Source URINE CULTURE 07/17/2020 12:00:00 AM EDT eCW1 ([facility]) Name Value Range Interpretation Code Description Data Anila rce(s) Supporting Document(s) URINE CULTURE eCW1 ([facility]) ID Date Data Source UA URINALYSIS 07/17/2020 12:00:00 AM EDT eCW1 ([facility]) Name Value Range Interpretation Code Description Data Anila rce(s) Supporting Document(s) UA URINALYSIS eCW1 ([facility]) ID Date Data Source [id number] 06/29/2020 09:44:00 PM EDT [facility] Name Value Range Interpretation Code Description Data Anila rce(s) Supporting Document(s) SARS coronavirus 2 RNA [Presence] in Res piratory specimen by HAIR with probe detection NEGATIVE [facility] This lab was ordered by [facility] a nd reported by [facility]. ID Date Data Source [id number] 03/20/2020 10:44:00 AM EST MEDENT ([facility], ) Name Value Range Interpretation Code Description Data Anila rce(s) Supporting Document(s) FVC-Pred 4.06 L MEDENT ([facility], ) PDFReport Laboratory test result MEDENT ([facility], ) FVC-LLN 3.07 L MEDENT ([facility], ) Fev1-Pred 2.83 L MEDENT ([facility], ) FVC-%Pred-Pre 77 L MEDENT ([facility], ) FVC-Pre 3.15 L MEDENT ([facility]) Fev1-Pre 2.22 L MEDENT ([facility], ) Fev1-%Pred-Pre 78 L MEDENT ([facility], ) Fev1-LLN 2.00 L MEDENT ([facility], ) Fev6-Pre 3.15 L MEDENT ([facility], ) Fev6-Pred 3.77 L MEDENT ([facility]) Bal0mzt-Gttn 70 % MEDENT ([facility]) Fev6-%Pred-Pre 83 L MEDENT ([facility], ) Fev6-LLN 2.81 L MEDENT ([facility], ) Dgw3lya-Qpm 71 % MEDENT ([facility]) Paa3ajs-ATY 60 % MED[facility] ([facility]) Ltx3bvs-%Pred-Pre 100 % MEDENT ([facility]) Wup5qef-Yrc 100 % MEDENT ([facility]) Vbt5czr-%Pred-Pre 107 % MEDENT ([facility]) Hgr3kmo-Wrmp 93 % MEDENT ([facility]) FEFMax-%Pred-Pre 88 L/E/sec MEDENT ([facility]) FEFMax-Pred 6.75 L/E/sec MEDENT ([facility], ) FEFMax-Pre 5.97 L/E/sec MEDENT ([facility]) FEFMax-LLN 4.29 L/E/sec MEDENT ([facility]) [id number]-Swew 1.81 L/E/sec MEDENT ([facility]) Blf6506-Zah 1.47 L/E/sec MEDENT ([facility], ) Wjt1373-%Pred-Pre 80 L/E/sec MEDENT ([facility]) Swh1342-DBM 0.12 L/E/sec MEDENT ([facility]) Jip8vmj3-Vkjx 75 % MEDENT ([facility]) ExpTime-Pre 4.77 sec MEDENT ([facility]) Kef8ocs6-Prp 71 % MEDENT ([facility]) Lgn6gsi1-%Pred-Pre 93 % MEDENT ([facility]) Dpv1sex6-DYK 66 % MED[facility] ([facility]) ID Date Data Source [id number] 02/17/2020 01:36:00 PM EST [facility] Name Value Range Interpretation Code Description Data Anila rce(s) Supporting Document(s) Thyroxine (T4) free [Mass/volume] in Serum or Plasma 1.30 ng/dL 0.76- 1.46 [facility] ID Date Data Source [id number] 02/17/2020 01:36:00 PM EST MED[facility] ([facility] Name Value Range Interpretation Code Description Data Anila rce(s) Supporting Document(s) Thyrotropin [Units/volume] in Serum or Plasma by Detec tion limit <= 0.05 mIU/L 1.78 uIU/mL 0.36-3.74 [facility] ID Date Data Source [id number] 02/17/2020 01:36:00 PM EST MED[facility] ([facility] Name Value Range Interpretation Code Description Data Anila rce(s) Supporting Document(s) Triglyceride [Mass/volume] in Serum or Plasma 165 mg/dL 30-150 MED[facility] ([facility]) Cholesterol [Mass/volume] in Serum or Plasma 117 mg/dL 131-200 MED[facility] ([facility]) Cholesterol in LDL [Mass/volume] in Serum or Plasma by calcu lation 41 CALC 50-159 [facility] ([facility]) Cholesterol in HDL [Mass/volume] in Serum or Plasma 43 mg/dL 35-60 [facility] ([facility]) ID Date Data Source [id number] 02/17/2020 01:36:00 PM EST MEDENT ([facility]) Name Value Range Interpretation Code Description Data Anila rce(s) Supporting Document(s) Glucose [Mass/volume] in Serum or Plasma 95 mg/dL 74-99 MED[facility] ([facility]) 100-125 mg/dL PRE-DIABETES/FASTING >126 mg/dL DIABETES/FASTING Urea nitrogen [Mass/volume] in Serum or Plasma 19 mg/dL 7-18 MED[facility] ([facility]) Sodium [Moles/volume] in Serum or Plasma 142 meq/L 136-145 [facility] ([facility]) Creatinine 1.1 mg/dL 0.6-1.3 [facility] Chloride [Moles/volume] in Serum or Plasma 106 meq/L 98-107 [facility] ([facility]) Potassium [Moles/volume] in Serum or Plasma 4.4 meq/L 3.5-5.1 MED[facility] ([facility]) Calcium [Mass/volume] in Serum or Plasma 9.4 mg/dL 8.5-10.1 [facility] ([facility]) Alkaline phosphatase isoenzyme [Units/volume] in Serum or Pl asma 93 mg/dL 46-116 [facility] ([facility]) Carbon dioxide, total [Moles/volume] in Serum or Plasma 30 meq/L 21 -32 [facility] ([facility]) Alanine aminotransferase [Enzymatic activity/volume] in Seru m or Plasma 29 U/L 12-78 [facility] ([facility]) Total Bilirubin 0.5 mg/dL 0.2-1.0 MED[facility] ([facility]) Aspartate aminotransferase [Enzymatic activity/volume] in Serum or Plasma 35 U/L 15-37 [facility] ([facility] ) Proteinase 3 Ab [Units/volume] in Serum 7.5 g/dL 6.4-8.2 [facility] ([facility]) Albumin [Mass/volume] in Serum or Plasma 3.6 g/dL 3.4-5.0 [facility] ([facility]) A/G Ratio 0.92 CALC 1.00-1.90 [facility] ([facility]) Glomerular filtration rate/1.73 sq M pre dicted among non-blacks [Volume Rate/Area] in Serum or Plasma by Creatinine-based formula (MDRD) Laboratory test result [facility] ([facility] Glomerular filtration rate/1.73 sq M pre dicted among blacks [Volume Rate/Area] in Serum or Plasma by Creatinine-based formula (MDRD) Laboratory test result [facility] ([facility]) <content>CHRONIC KIDNEY DISEASE STAGING PER NKF</content>
<content></content>
<content>STAGE I & II GFR >= 60 NORMAL TO MILDLY DECREASED</content>
<content>STAGE III GFR 30-59 MODERATELY DECREASED</content>
<content>STAGE IV GFR 15-29 SEVERELY DECREASED</content>
<content>STAGE V GFR <15 VERY LITTLE GFR LEFT</content>
<content>ESRD GFR <15 ON [employer]</content>
<content></content> ID Date Data Source [id number] 02/17/2020 01:36:00 PM EST [facility] ([facility] Name Value Range Interpretation Code Description Data Anila rce(s) Supporting Document(s) Glucose mean value [Mass/volume] in Blood Estimated fr om glycated hemoglobin 111 mg/dL 60-110 [facility] ([facility] ) Hemoglobin A1c/Hemoglobin.total in Blood 5.5 % [facility] ([facility]) Lab Result Notes: Pre-Diabetes 5.7 - 6.4 % Diabetes = or > 6.5% ID Date Data Source [id number] 02/17/2020 01:36:00 PM EST [facility] ([facility]) Name Value Range Interpretation Code Description Data Anila rce(s) Supporting Document(s) Leukocytes [#/volume] in Blood by Automated count 6.4 x10*3/UL 4.1-10 .9 [facility] NOTE: RESULT VERIFIED. Erythrocytes [#/volume] in Blood by Automated count 3.66 x10*6/UL 4.2 0-6.30 [facility] ([facility]) Hemoglobin [Mass/volume] in Blood 11.4 g/dL 12.0-18.0 [facility] ([facility]) Hematocrit [Volume Fraction] of Blood by Automated count 33.5 % 3 7.0-51.0 [facility] ([facility]) MCHC 34.3 g/dL 31.0-38.0 [facility] ([facility]) MCV 91.4 fL 80.0-97.0 [facility] ([facility]) MCH 31.3 pg 26.0-32.0 [facility] ([facility]) MPV 9.0 FL 7.8-11.0 [facility] ([facility]) Platelets [#/volume] in Blood by Automated count 168 x10*3/UL 140-440 [facility] Erythrocyte distribution width [Ratio] by Automated count 14.3 % 11.6-13.7 [facility] ([facility]) Neut % 65.7 % 37.0-92.0 [facility] ([facility]) Mid % 7.3 % 1.7-9.3 [facility] ([facility]) Lymph % 27.0 % 10.0-58.5 [facility] ([facility]) Lymph # 1.7 x10*3/UL 0.6-4.1 [facility] ([facility]) Neut # 4.2 x10*3/UL 2.0-7.8 [facility] ([facility]) Mid # 0.5 x10*3/UL 0.1-0.6 [facility] ([facility]) ID Date Data Source [id number] 02/17/2020 01:36:00 PM EST [facility] ([facility]) Name Value Range Interpretation Code Description Data Anila rce(s) Supporting Document(s) Hemoglobin A1c/Hemoglobin.total in Blood Laboratory test result [facility] ([facility]) ID Date Data Source [id number] 02/17/2020 07:46:00 AM EST [facility] ([facility]) Name Value Range Interpretation Code Description Data Anila rce(s) Supporting Document(s) White Blood Count 6.4 4.1-10.9 [facility] ([facility]) Red Blood Count 3.66 4.2-6.30 [facility] ([facility]) Platelets 168 140-440 [facility] ([facility] Hemoglobin 11.4 12.0-18.0 [facility] ([facility]) Hematocrit 33.5 37.0-51.0 [facility] ([facility]) ID Date Data Source [id number] 02/17/2020 07:46:00 AM EST MEDENT ([facility]) Name Value Range Interpretation Code Description Data Anila rce(s) Supporting Document(s) Triglycerides 165 30-150 [facility] ([facility]) Cholesterol 117 131-200 [facility] ([facility]) Cholesterol in LDL [Mass/volume] in Serum or Plasma by calculation 41 50-159 [facility] ([facility]) HDL 43 35-60 [facility] ([facility] Chol/HDL Ratio Laboratory test result [facility] ([facility]) ID Date Data Source [id number] 02/17/2020 07:46:00 AM EST [facility] ([facility]) Name Value Range Interpretation Code Description Data Anila rce(s) Supporting Document(s) Albumin [Mass/volume] in Serum or Plasma 3.6 [facility] ([facility]) Alanine aminotransferase [Enzymatic activity/volume] in Serum or Pl asma 29 [facility] ([facility]) Calcium [Mass/volume] in Serum or Plasma 9.4 [facility] ([facility]) Carbon dioxide, total [Moles/volume] in Serum or Plasma 30 [facility] ([facility]) Chloride [Moles/volume] in Serum or Plasma 106 [facility] ([facility]) Alkaline phosphatase [Enzymatic activity/volume] in Serum or Plasma 9 3 [facility] ([facility]) Potassium [Moles/volume] in Serum or Plasma 4.4 [facility] ([facility]) Protein [Mass/volume] in Serum or Plasma 7.5 [facility] ([facility]) Sodium 142 [facility] ([facility] Aspartate aminotransferase [Enzymatic activity/volume] in Serum or Plasma 35 [facility] ([facility]) Urea nitrogen [Mass/volume] in Serum or Plasma 19 [facility] ([facility]) Glucose 95 74-106 [facility] Creatinine For GFR 1.1 [facility] ([facility]) Procedure Social History Code Duration Value Status Description Data Source(s ) Smoking 12/13/2020 12:00:00 AM EDT Patient is a former smoker completed Patient is a former smoker MED[facility] ([facility], ) Smoking 09/24/2020 12:00:00 AM EDT Former Smoker completed Former Smoker eCW1 ([facility]) Smoking 09/24/2020 12:00:00 AM EDT Former Smoker completed Former Smoker eCW1 ([facility]) Smoking 09/24/2020 12:00:00 AM EDT Former Smoker completed Former Smoker eCW1 ([facility]) Smoking 09/20/2020 12:00:00 AM EDT Patient is a former smoker completed Patient is a former smoker MEDENT ([facility]) Smoking 09/12/2020 12:00:00 AM EDT Patient is a former smoker completed Patient is a former smoker MED[facility] ([facility]) Smoking 07/17/2020 12:00:00 AM EDT Former Smoker completed Former Smoker eCW1 ([facility]) Smoking 03/26/2020 12:00:00 AM EST Former Smoker completed Former Smoker eCW1 ([facility]) Smoking 02/13/2020 12:00:00 AM EST Former Smoker completed Former Smoker eCW1 ([facility]) Smoking 02/13/2020 12:00:00 AM EST Former Smoker completed Former Smoker eCW1 ([facility]) Vital Signs ID Date Data Source [id number] Name Value Range Interpretation Code Description Data Source(s) Body mass index (BMI) [Ratio] 28.6 kg/m2 28.6 k g/m2 [facility] ([facility]) Body height 70 [in_i] 70 [in_i] [facility] ([facility]) 5'10" Systolic blood pressure 132 mm[Hg] 132 mm[Hg] M [facility] ([facility]) Diastolic blood pressure 72 mm[Hg] 72 mm[Hg] [facility] ([facility]) Heart rate 68 /min 68 /min [facility] ([facility]) Body weight 199.00 [lb_av] 199.00 [lb_av] MED[facility] T ([facility]) Systolic blood pressure 110 mm[Hg] 110 mm[Hg] [facility] ([facility]) Diastolic blood pressure 70 mm[Hg] 70 mm[Hg] [facility] ([facility]) Heart rate 50 /min 50 /min [facility] ([facility]) Oxygen saturation in Arterial blood by Pulse oximetry 98 % 98 % [facility] ([facility]) Body height 71 [in_i] 71 [in_i] [facility] ([facility] 5'11" Body weight 204.00 [lb_av] 204.00 [lb_av] [facility] PT States Body mass index (BMI) [Ratio] 28.4 kg/m2 28.4 k g/m2 [facility] ([facility]) [place] body weight 172 [lb_av] 172 [lb_av] [facility] Body weight 92.534 kg 92.534 kg [facility] ([facility]) Body surface area Derived from formula 2.13 m2 2.13 m2 [facility] ([facility]) Systolic blood pressure 102 mm[Hg] 102 mm[Hg] M [facility] ([facility]) Body height 70 [in_i] 70 [in_i] [facility] ([facility]) 5'10" Body weight 202.00 [lb_av] 202.00 [lb_av] [facility] T ([facility]) Body mass index (BMI) [Ratio] 29.0 kg/m2 29.0 k g/m2 [facility] ([facility]) Diastolic blood pressure 56 mm[Hg] 56 mm[Hg] [facility] ([facility]) Heart rate 56 /min 56 /min [facility] ([facility]) Body weight 204.38 [lb_av] 204.38 [lb_av] MED[facility] T ([facility]) Body height 70 [in_i] 70 [in_i] [facility] ([facility]) 5'10" Diastolic blood pressure 42 mm[Hg] 42 mm[Hg] [facility] ([facility]) RT Arm Heart rate 56 /min 56 /min [facility] ([facility]) Body mass index (BMI) [Ratio] 29.3 kg/m2 29.3 k g/m2 [facility] ([facility]) Systolic blood pressure 108 mm[Hg] 108 mm[Hg] M [facility] ([facility]) RT Arm Oxygen saturation in Arterial blood by Pulse oximetry 91 % 91 % [facility] ([facility]) Air Body weight 204.00 [lb_av] 204.00 [lb_av] MEDEN T ([facility]) Body mass index (BMI) [Ratio] 27.7 kg/m2 27.7 k g/m2 [facility] ([facility]) Body height 72 [in_i] 72 [in_i] [facility] ([facility]) 6'0" Body mass index (BMI) [Ratio] 30.3 kg/m2 30.3 k g/m2 [facility] ([facility]) Systolic blood pressure 130 mm[Hg] 130 mm[Hg] [facility] ([facility]) Diastolic blood pressure 60 mm[Hg] 60 mm[Hg] [facility] ([facility]) Heart rate 54 /min 54 /min [facility] ([facility]) Body height 70 [in_i] 70 [in_i] [facility] ([facility]) 5'10" Body weight 211.00 [lb_av] 211.00 [lb_av] MED[facility] T ([facility]) Heart rate 67 /min 67 /min [facility] ([facility], [facility]) Systolic blood pressure 111 mm[Hg] 111 mm[Hg] [facility] ([facility], [facility]) Respiratory rate 12 /min 12 /min [facility] ( [facility], [facility]) Oxygen saturation in Arterial blood by Pulse oximetry 96 % 96 % [facility] ([facility], [facility]) Body temperature 96.8 [degF] 96.8 [degF] [facility] ([facility], [facility]) Body weight 204.00 [lb_av] 204.00 [lb_av] MEDEN T ([facility], [facility]) Body height 72 [in_i] 72 [in_i] [facility] ([facility], [facility]) 6'0" Body mass index (BMI) [Ratio] 27.7 kg/m2 27.7 k g/m2 [facility] ([facility], [facility]) Diastolic blood pressure 68 mm[Hg] 68 mm[Hg] [facility] ([facility], [facility]) Body height 70 [in_i] 70 [in_i] eCW1 ([facility]) Body weight 245 [lb_av] 245 [lb_av] eCW1 ([facility]) Body mass index (BMI) [Ratio] 35.15 kg/m2 35.15 kg/m2 eCW1 ([facility]) Heart rate 67 /min 67 /min eCW1 ([facility]) Respiratory rate 18 /min 18 /min eCW1 ([facility]) Body temperature 97.1 [degF] 97.1 [degF] eCW1 ( [facility]) Systolic blood pressure 162 mm[Hg] 162 mm[Hg] e CW1 ([facility]) Diastolic blood pressure 81 mm[Hg] 81 mm[Hg] eCW1 ([facility]) Systolic blood pressure 160 mm[Hg] 160 mm[Hg] M EDENT ([facility], [facility]) Diastolic blood pressure 78 mm[Hg] 78 mm[Hg] MED[facility] ([facility], [facility]) Heart rate 68 /min 68 /min MED[facility] ([facility], [facility]) Body temperature 98.4 [degF] 98.4 [degF] [facility] ([facility], [facility]) Body weight 204.00 [lb_av] 204.00 [lb_av] MEDEN T ([facility], [facility]) Oxygen saturation in Arterial blood by Pulse oximetry 98 % 98 % [facility] Body height 72 [in_i] 72 [in_i] [facility] ([facility]) 6'0" Body mass index (BMI) [Ratio] 27.7 kg/m2 27.7 k g/m2 [facility] ([facility]) Respiratory rate 17 /min 17 /min MED[facility] ( [facility]) Body weight 209.00 [lb_av] 209.00 [lb_av] MEDEN T ([facility]) Body height 72 [in_i] 72 [in_i] [facility] ([facility]) 6'0" Body mass index (BMI) [Ratio] 28.3 kg/m2 28.3 k g/m2 [facility] ([facility]) Heart rate 70 /min 70 /min [facility] ([facility]) Systolic blood pressure--sitting 110 mm[Hg] 110 mm[Hg] [facility] ([facility]) Ra, large cuff Diastolic blood pressure--sitting 64 mm[Hg] 64 mm[Hg] [facility] ([facility]) Ra, large cuff Diastolic blood pressure 58 mm[Hg] 58 mm[Hg] [facility] ([facility]) ra Heart rate 80 /min 80 /min [facility] ([facility]) Systolic blood pressure 102 mm[Hg] 102 mm[Hg] M [facility] ([facility]) RT Arm Diastolic blood pressure 68 mm[Hg] 68 mm[Hg] [facility] ([facility]) RT Arm Systolic blood pressure 114 mm[Hg] 114 mm[Hg] M [facility] ([facility]) ra Body height 70 [in_i] 70 [in_i] [facility] ([facility]) 5'10" Body weight 220.12 [lb_av] 220.12 [lb_av] MEDEN T ([facility]) Oxygen saturation in Arterial blood by Pulse oximetry 97 % 97 % [facility] ([facility]) Air Body mass index (BMI) [Ratio] 31.6 kg/m2 31.6 k g/m2 [facility] ([facility]) Body height 70 [in_i] 70 [in_i] [facility] 5'10" Diastolic blood pressure 60 mm[Hg] 60 mm[Hg] [facility] ([facility] Heart rate 62 /min 62 /min [facility] ([facility] Body weight 220.00 [lb_av] 220.00 [lb_av] MEDEN T ([facility] Systolic blood pressure 126 mm[Hg] 126 mm[Hg] [facility] ([facility] Body mass index (BMI) [Ratio] 31.6 kg/m2 31.6 k g/m2 [facility] ([facility] Systolic blood pressure 120 mm[Hg] 120 mm[Hg] [facility] ([facility]) Body weight 220.00 [lb_av] 220.00 [lb_av] MEDEN T ([facility]) Body mass index (BMI) [Ratio] 31.6 kg/m2 31.6 k g/m2 [facility] ([facility]) Body height 70 [in_i] 70 [in_i] [facility] ([facility]) 5'10" Diastolic blood pressure 60 mm[Hg] 60 mm[Hg] [facility] ([facility]) Heart rate 64 /min 64 /min [facility] ([facility]) Body temperature 96.1 [degF] 96.1 [degF] eCW1 ( [facility]) Systolic blood pressure 150 mm[Hg] 150 mm[Hg] e CW1 ([facility]) Diastolic blood pressure 78 mm[Hg] 78 mm[Hg] eCW1 ([facility]) Body weight 245 [lb_av] 245 [lb_av] W1 ([facility]) Body height 70 [in_i] 70 [in_i] W1 ([facility]) Body mass index (BMI) [Ratio] 35.15 kg/m2 35.15 kg/m2 eCW1 ([facility]) Heart rate 80 /min 80 /min eCW1 ([facility]) Respiratory rate 18 /min 18 /min eCW1 ([facility]) Systolic blood pressure 157 mm[Hg] 157 mm[Hg] M EDENT ([facility], ) Respiratory rate 16 /min 16 /min MED[facility] ( [facility]) Body mass index (BMI) [Ratio] 29.8 kg/m2 29.8 k g/m2 [facility] ([facility]) [place] body weight 172 [lb_av] 172 [lb_av] MEDEN T ([facility]) Body weight 97.070 kg 97.070 kg [facility] ([facility]) Body temperature 97.2 [degF] 97.2 [degF] [facility] ([facility]) Body height 71 [in_i] 71 [in_i] [facility] 5'11" Body weight 214.00 [lb_av] 214.00 [lb_av] MED[facility] T ([facility]) Diastolic blood pressure 74 mm[Hg] 74 mm[Hg] [facility] ([facility]) Heart rate 58 /min 58 /min [facility] ([facility]) Oxygen saturation in Arterial blood by Pulse oximetry 100 % 100 % [facility] ([facility]) Oxygen saturation in Arterial blood by Pulse oximetry 100 % 100 % [facility] ([facility]) Respiratory rate 16 /min 16 /min [facility] ( [facility]) Body temperature 97.2 [degF] 97.2 [degF] [facility] ([facility]) Body height 71 [in_i] 71 [in_i] [facility] ([facility]) 5'11" Body weight 214.00 [lb_av] 214.00 [lb_av] [facility] T ([facility]) Body mass index (BMI) [Ratio] 29.8 kg/m2 29.8 k g/m2 [facility] ([facility]) [place] body weight 172 [lb_av] 172 [lb_av] [facility] T ([facility]) Body weight 97.070 kg 97.070 kg [facility] ([facility]) Body surface area Derived from formula 2.17 m2 2.17 m2 [facility] ([facility]) Body surface area Derived from formula 2.17 m2 2.17 m2 [facility] ([facility]) Body height 70 [in_i] 70 [in_i] [facility] ([facility]) 5'10" Oxygen saturation in Arterial blood by Pulse oximetry 92 % 92 % [facility] ([facility]) [facility] Body mass index (BMI) [Ratio] 31.6 kg/m2 31.6 k g/m2 [facility] ([facility]) Systolic blood pressure 126 mm[Hg] 126 mm[Hg] [facility] ([facility]) Diastolic blood pressure 60 mm[Hg] 60 mm[Hg] [facility] ([facility]) Heart rate 62 /min 62 /min [facility] ([facility]) Body weight 220.00 [lb_av] 220.00 [lb_av] [facility] Systolic blood pressure 133 mm[Hg] 133 mm[Hg] [facility] ([facility]) Diastolic blood pressure 72 mm[Hg] 72 mm[Hg] [facility] ([facility]) Heart rate 61 /min 61 /min [facility] ([facility]) Oxygen saturation in Arterial blood by Pulse oximetry 99 % 99 % [facility] ([facility]) Body temperature 96.8 [degF] 96.8 [degF] [facility] ([facility]) Body height 71 [in_i] 71 [in_i] [facility] ([facility] 5'11" Body weight 214.50 [lb_av] 214.50 [lb_av] [facility] ([facility]) Body mass index (BMI) [Ratio] 29.9 kg/m2 29.9 k g/m2 [facility] ([facility]) [place] body weight 172 [lb_av] 172 [lb_av] [facility] T ([facility], ) Body weight 97.300 kg 97.300 kg [facility] ([facility]) Body surface area Derived from formula 2.17 m2 2.17 m2 [facility] Body weight 215.00 [lb_av] 215.00 [lb_av] [facility] ([facility]) Body height 72 [in_i] 72 [in_i] [facility] 6'0" Heart rate 60 /min 60 /min [facility] ([facility]) regular Respiratory rate 16 /min 16 /min [facility] ( [facility]) Body mass index (BMI) [Ratio] 29.2 kg/m2 29.2 k g/m2 [facility] ([facility]) Systolic blood pressure--sitting 121 mm[Hg] 121 mm[Hg] [facility] ([facility]) Medium cuff, Ra Diastolic blood pressure--sitting 64 mm[Hg] 64 mm[Hg] [facility] ([facility]) Medium cuff, Ra Systolic blood pressure--supine 132 mm[Hg] 132 mm[Hg] [facility] ([facility]) Diastolic blood pressure--supine 66 mm[Hg] 66 mm[Hg] [facility] ([facility]) Body weight 224.2 [lb_av] 224.2 [lb_av] eCW1 ([facility]) Body height 70 [in_i] 70 [in_i] eCW1 ([facility]) Body mass index (BMI) [Ratio] 32.17 kg/m2 32.17 kg/m2 eCW1 ([facility]) Heart rate 60 /min 60 /min eCW1 ([facility]) Respiratory rate 18 /min 18 /min eCW1 ([facility]) Body temperature 98.3 [degF] 98.3 [degF] eCW1 ( [facility]) Systolic blood pressure 157 mm[Hg] 157 mm[Hg] e CW1 ([facility]) Diastolic blood pressure 72 mm[Hg] 72 mm[Hg] eCW1 ([facility]) Heart rate 60 /min 60 /min [facility] ([facility]) Oxygen saturation in Arterial blood by Pulse oximetry 96 % 96 % [facility] ([facility]) Body temperature 96.5 [degF] 96.5 [degF] [facility] ([facility]) Body height 72 [in_i] 72 [in_i] [facility] ([facility] 6'0" Body weight 218.00 [lb_av] 218.00 [lb_av] [facility] T ([facility]) Body mass index (BMI) [Ratio] 29.6 kg/m2 29.6 k g/m2 [facility] ([facility]) [place] body weight 178 [lb_av] 178 [lb_av] [facility] Body weight 98.885 kg 98.885 kg [facility]) Body surface area Derived from formula 2.21 m2 2.21 m2 [facility] ([facility]) Systolic blood pressure 130 mm[Hg] 130 mm[Hg] [facility] ([facility]) Diastolic blood pressure 80 mm[Hg] 80 mm[Hg] [facility] ([facility]) Body weight 218.00 [lb_av] 218.00 [lb_av] [facility] Body weight 98.885 kg 98.885 kg [facility] Body surface area Derived from formula 2.21 m2 2.21 m2 [facility] ([facility]) Systolic blood pressure 128 mm[Hg] 128 mm[Hg] [facility] ([facility]) Diastolic blood pressure 76 mm[Hg] 76 mm[Hg] [facility] ([facility]) Heart rate 60 /min 60 /min [facility] ([facility]) Oxygen saturation in Arterial blood by Pulse oximetry 96 % 96 % [facility] ([facility]) Body temperature 96.4 [degF] 96.4 [degF] [facility] ([facility]) Body height 72 [in_i] 72 [in_i] [facility] ([facility], ) 6'0" Body mass index (BMI) [Ratio] 29.6 kg/m2 29.6 k g/m2 [facility] ([facility]) [place] body weight 178 [lb_av] 178 [lb_av] [facility] T ([facility]) Diastolic blood pressure--sitting 66 mm[Hg] 66 mm[Hg] [facility] ([facility]) Medium cuff, Ra; 112/62 [place] Respiratory rate 16 /min 16 /min [facility] ( [facility]) Body mass index (BMI) [Ratio] 31.1 kg/m2 31.1 k g/m2 [facility] ([facility]) Systolic blood pressure--sitting 110 mm[Hg] 110 mm[Hg] [facility] ([facility]) Medium cuff, Ra; 112/62 [place] Heart rate 64 /min 64 /min [facility] ([facility]) regular Body weight 229.00 [lb_av] 229.00 [lb_av] [facility] T ([facility]) Systolic blood pressure--supine 116 mm[Hg] 116 mm[Hg] [facility] ([facility]) Ra Diastolic blood pressure--supine 68 mm[Hg] 68 mm[Hg] [facility] ([facility]) Ra Body height 72 [in_i] 72 [in_i] [facility] 6'0" Oxygen saturation in Arterial blood by Pulse oximetry 98 % 98 % [facility] ([facility]) Systolic blood pressure 110 mm[Hg] 110 mm[Hg] M EDENT ([facility]) Diastolic blood pressure 60 mm[Hg] 60 mm[Hg] [facility] ([facility]) Heart rate 64 /min 64 /min [facility] ([facility]) Body height 70 [in_i] 70 [in_i] [facility] ([facility]) 5'10" Body weight 220.00 [lb_av] 220.00 [lb_av] [facility] T ([facility]) Oxygen saturation in Arterial blood by Pulse oximetry 96 % 96 % [facility] ([facility]) Air Body mass index (BMI) [Ratio] 31.6 kg/m2 31.6 k g/m2 [facility] ([facility]) Body weight 226 [lb_av] 226 [lb_av] eCW1 ([facility]) Body height 70 [in_i] 70 [in_i] eCW1 ([facility]) Body mass index (BMI) [Ratio] 32.42 kg/m2 32.42 kg/m2 eCW1 ([facility]) Heart rate 65 /min 65 /min eCW1 ([facility]) Respiratory rate 20 /min 20 /min eCW1 ([facility]) Body temperature 95.6 [degF] 95.6 [degF] eCW1 ( [facility]) Systolic blood pressure 148 mm[Hg] 148 mm[Hg] e CW1 ([facility]) Diastolic blood pressure 72 mm[Hg] 72 mm[Hg] eCW1 ([facility]) Body weight 219 [lb_av] 219 [lb_av] eCW1 ([facility]) Respiratory rate 20 /min 20 /min eCW1 ([facility]) Body temperature 97 [degF] 97 [degF] eCW1 ([facility]) Systolic blood pressure 110 mm[Hg] 110 mm[Hg] e CW1 ([facility]) Body height 70 [in_i] 70 [in_i] eCW1 ([facility]) Body mass index (BMI) [Ratio] 31.42 kg/m2 31.42 kg/m2 eCW1 ([facility]) Diastolic blood pressure 60 mm[Hg] 60 mm[Hg] eCW1 ([facility]) Heart rate 67 /min 67 /min eCW1 ([facility]) Patient Treatment Plan of Care Planned Activity Planned Date Details Description Data Source (s) Finasteride 5 MG Oral Tablet 02/13/2020 12:00:00 AM EST eCW1 ([facility]) Sulfamethoxazole 800 MG / Trimethoprim 160 MG Oral Tab let [Bactrim] 02/13/2020 12:00:00 AM EST eCW1 ([facility]) Finasteride 5 MG Oral Tablet 02/13/2020 12:00:00 AM EST eCW1 ([facility]) Sulfamethoxazole 800 MG / Trimethoprim 160 MG Oral Tab let [Bactrim] 02/13/2020 12:00:00 AM EST eCW1 ([facility]) Finasteride 5 MG Oral Tablet 02/13/2020 12:00:00 AM EST eCW1 ([facility])
[2021-02-27] MEDS ORDERED: ALBU83IN NEB (13:18)
[2021-02-27] MEDS ORDERED: HOME MED LIST COMPLETE! XX SCH (13:20)
[2021-02-27] MEDS ORDERED: FLUTICASONE PROP 0.05% NASAL SPRAY 16 GM (FLONASE) NARES PRN (15:30)
[2021-02-27] MEDS ORDERED: ALBUTEROL SULFATE 2.5 MG/0.5 ML INH NEB SOLN NEB PRN (15:30)
[2021-02-27] MEDS ORDERED: NS 1,000 ML IV SCH (15:50)
[2021-02-27] MEDS: DOXYCYCLINE HYCLATE 100 MG in D5W MINI-BAG PLUS 100 ML IV SCH ×3 (15:59→16:03)
--- NOTE | 2021-02-27 16:39 | HPE ---
HISTORY AND PHYSICAL DATE OF ADMISSION: 02/27/2021 CHIEF COMPLAINT: Fever, cough, weakness. HISTORY OF PRESENTING ILLNESS: This is an 85-year-old male with a history of aspiration pneumonia in October 2020, spinal stenosis, CAD, CABG, diastolic CHF, hypertension, chronic atrial fibrillation on Eliquis, pacemaker, severe lumbar spinal stenosis with recurrent aspiration, bladder cancer status post chemotherapy, abdominal aortic aneurysm repair who was in his usual state of health until two days ago when he noted increasing weakness, unable to ambulate well, cough productive of beasley sputum thick, and fevers of 102 at home without diarrhea, headache, chest pain or pressure or tightness, or shortness of breath. The patient denies any pleuritic chest pain. He denies any anosmia, loss of taste, weight loss. In the emergency room, he was afebrile, 99.5. White count was 18.9, 90.3% neutrophils, normal lactic acid level. Chest x-ray shows bilateral bibasilar pneumonia. Chest CT shows right lower lobe consolidation, right pleural effusion, multifocal opacities most compatible with pneumonia. Coronavirus 19 was negative. The Hospitalist was asked to admit the patient for bilateral lower lobe pneumonia with a history of chronic aspiration. PAST MEDICAL HISTORY: 1. Recurrent aspiration. 2. Bladder cancer status post chemotherapy. 3. Severe lumbar spinal stenosis. 4. Chronic constipation. 5. Chronic atrial fibrillation on Eliquis status post pacemaker. 6. Hypertension. 7. Diastolic congestive heart failure. 8. Coronary artery disease status post coronary artery bypass graft. 9. Hypothyroidism. PAST SURGICAL HISTORY: 1. Coronary artery bypass graft. 2. Spinal surgery. 3. Transurethral resection of the prostate. 4. Hernia repair. 5. Cholecystectomy. 6. Bilateral cataract extraction. 7. Pacemaker. 8. Abdominal aortic aneurysm repair. SOCIAL HISTORY: Denies alcohol, recreational drug use, or tobacco use. He lives at home with his . FAMILY HISTORY: Noncontributory due to advanced age. ALLERGIES: No known drug allergies. HOME MEDICATIONS: 1. Albuterol q.i.d. 2. Amiodarone 200 mg daily. 3. Apixaban 2.5 mg b.i.d. 4. Aspirin 81 mg daily. 5. Atorvastatin 20 mg daily. 6. Ferrous gluconate 324 mg daily. 7. Finasteride 5 mg daily. 8. Fluticasone nares b.i.d. as needed. 9. Synthroid 112 mcg daily. 10. Multivitamin one tablet daily. 11. Protonix 40 mg daily. 12. Lyrica 75 mg nightly at bedtime. 13. Flomax 0.4 mg daily. 14. Torsemide 10 mg daily. 15. Fish oil 1200 mg one capsule b.i.d. REVIEW OF SYSTEMS: Per HPI, 12 point review of systems otherwise negative. PHYSICAL EXAMINATION: VITAL SIGNS: Temperature 99.5, pulse 50, respiratory rate 18, blood pressure 123/58, 97% on 1 liter nasal cannula. GENERAL: The patient appears his stated age, no distress, no use of respiratory accessory muscles. The patient has no icterus, cyanosis, jaundice. He speaks in full sentences. HEENT Face is symmetric. Tongue is midline. NECK: No JVD, thyromegaly, cervical lymphadenopathy. HEENT: Dry mucous membranes. LUNGS: Diminished, bilateral crackles at the bases. HEART: S1, S2, irregular, bradycardic. ABDOMEN: Soft, nontender, nondistended. EXTREMITIES: No cyanosis, clubbing, or pitting edema. DATA: 1. Laboratory data: White count 18.9, hemoglobin 9, hematocrit 28, platelet count 197, sodium 140, potassium 4.6, chloride 104, bicarbonate 30, BUN 30, creatinine 1.67, glucose 97, lactic acid 1.2, alkaline phosphatase 142, total bilirubins 0.9, T-bili 0.5, BNP 2148, troponin 0.03, total CK 35, TSH 2.5, albumin 2.6. 2. CT chest: Right lower lobe consolidation, right pleural effusion, multifocal opacities compatible with pneumonia. 3. Chest x-ray shows diffuse bilateral multifocal opacity with lower lobe consolidation with small right pleural reaction. ASSESSMENT: This is an 85-year-old male admitted due to a two day history of fever, coughs, generalized weakness, with difficulty ambulating, found to have bilateral pneumonia on chest x-ray and confirmed with CT showing a right lower lobe consolidation. IMPRESSION: 1. Right lower lobe pneumonia. The patient has been given IV ceftriaxone in the ER. Due to known history of aspiration, the patient will be provided with gram negative as well as anaerobic coverage with IV Zosyn. Check MRSA due to multiple hospitalizations recently. The patient will be given nebulizer treatments, supplemental oxygen to keep saturations above 90%. He is coronavirus negative. We have ordered two sets of blood cultures, urine legionella and urine streptococcal antigen as well. 2. Chronic aspiration with bilateral lower lobe pneumonia. Speech therapy will be consulted to determine the need for a modified diet due to increased risk of recurrent aspiration. 3. CAD, CABG, congestive heart failure with preserved systolic function. The patient has a history of diastolic dysfunction on previous ECHO. He currently has acute kidney injury, therefore, his torsemide will be held for one day and resumed in the morning unless creatinine is back to baseline. He has chronically elevated BNP with no heart failure on CT of the chest and clinically not fluid overloaded. He will be kept on strict I&Os, daily weights, and 2 liter fluid restriction. Previous creatinine was normal. 4. Hypertension, currently controlled, with systolic pressure ranging from 116 to 123 systolic. Due to active infection, the patient's torsemide will be held for systolic pressure less than 120. 5. Hypothyroidism. Continue on home dose of Synthroid 112 mcg daily. 6. History of BPH. Continue on Flomax. 7. Atrial fibrillation. May continue on home dose of amiodarone and Eliquis. Monitor the patient's TSH while on amiodarone. 8. Generalized weakness secondary to infection with pneumonia. PT, OT. 9. DVT prophylaxis with Eliquis. 10. Chronic anemia. The patient is on ferrous gluconate. He is on Prilosec. No history of GI bleed in the past. No acute indication for RBC transfusion at this time with hemoglobin remaining above 8. MTDD
[2021-02-27 17:40] VITALS: BP 116/57
[2021-02-27] MEDS: PREGABALIN 75 MG CAP(LYRICA) PO SCH (21:46)
[2021-02-27] MEDS: APIXABAN 2.5 MG TAB (ELIQUIS) PO SCH (21:46)
[2021-02-27] MEDS: PIPERACILLIN/TAZOBACTAM SOD 3.375 GM in D5W MINI-BAG PLUS 50 ML IV SCH (21:46)
[2021-02-27 22:00] VITALS: BP 120/57
[2021-02-27] MEDS ORDERED: VANCOMYCIN HCL 1,000 MG, VIAL MATE ADAPTER 1 EACH in NS 250 ML IV ONE (23:00)
[2021-02-28] MEDS ORDERED: VANCOMYCIN HCL 1,000 MG, VIAL MATE ADAPTER 1 EACH in NS 250 ML IV SCH ×3
[2021-02-28] MEDS: DOXYCYCLINE HYCLATE 100 MG in D5W MINI-BAG PLUS 100 ML IV SCH ×2 (02:05→14:13)
[2021-02-28] MEDS: PIPERACILLIN/TAZOBACTAM SOD 3.375 GM in D5W MINI-BAG PLUS 50 ML IV SCH ×4 (04:00→20:09)
[2021-02-28] MEDS: LEVOTHYROXINE 112MCG TABLET (0.112MG) PO SCH (05:43)
[2021-02-28 06:00] VITALS: BP 125/59
[2021-02-28] MEDS ORDERED: TORSEMIDE 10 MG TABLET PO SCH (09:00)
[2021-02-28 09:07] LABS: CALCIUM LEVEL 8.8 MG/DL (8.8-10.2); CREATININE FOR GFR 1.35 MG/DL (0.70-1.30); GLOMERULAR FILTRATION RATE 53.2 (>35); POTASSIUM SERUM 4.3 MEQ/L (3.5-5.1)
[2021-02-28] MEDS: ASPIRIN 81MG ENTERIC TABLET PO SCH (09:26)
[2021-02-28] MEDS: TAMSULOSIN 0.4 MG CAP PO SCH (09:26)
[2021-02-28] MEDS: PANTOPRAZOLE 40MG TAB (PROTONIX) PO SCH (09:26)
[2021-02-28] MEDS: LACTOBACILLUS ACIDOPHILUS CAP (BACID) PO SCH ×3 (09:27→17:30)
[2021-02-28] MEDS: ATORVASTATIN 20 MG TAB PO SCH (09:27)
[2021-02-28] MEDS: APIXABAN 2.5 MG TAB (ELIQUIS) PO SCH ×2 (09:27→20:08)
[2021-02-28] MEDS: AMIODARONE 200 MG TAB (PACERONE) PO SCH (09:27)
[2021-02-28] MEDS: MULTIVITAMINS/MINERALS THERAP 1 TAB PO SCH (09:27)
[2021-02-28] MEDS: FERROUS GLUCONATE 324 MG TAB PO SCH (09:27)
[2021-02-28] MEDS: FINASTERIDE 5 MG TAB PO SCH (09:28)
[2021-02-28 13:42] LABS: BASO % 0.1 % (0.0-1.0); HEMATOCRIT 30.5 % (42.0-52.0); HEMOGLOBIN 9.3 g/dl (13.5-17.5); LYMPH # 0.8 10^3/uL (1.5-5.0); LYMPH % 7.1 % (24.0-44.0); MEAN CORPUSCULAR HEMOGLOBIN 28.2 pg (27.0-33.0); MEAN CORPUSCULAR HGB CONC 30.5 g/dl (32.0-36.5); MEAN CORPUSCULAR VOLUME 92.4 fl (80.0-96.0); MONO # 0.5 10^3/uL (0.0-0.8); MONO % 4.1 % (2.0-8.0); NEUTROPHILS # 9.6 10^3/uL (1.5-8.5); NEUTROPHILS % 88.1 % (36.0-66.0); PLATELET COUNT, AUTOMATED 173 10^3/uL (150-450); WHITE BLOOD COUNT 10.9 10^3/uL (4.0-10.0)
[2021-02-28 14:00] VITALS: BP 113/49
[2021-02-28 14:32] LABS: ERYTHROCYTE SEDIMENTATION RATE 66 mm/hr (0-20)
--- NOTE | 2021-02-28 15:14 | IPN ---
PROGRESS NOTE DATE: 02/28/2021 SUBJECTIVE: Patient feels much better today. He denies any cough or shortness of breath. No fever or chills overnight. He is tolerating his diet. No diarrhea. OBJECTIVE: VITAL SIGNS: Temperature is 98.3, pulse is 52, respiratory rate is 17, blood pressure is 125/50, 95% on 1 liter nasal cannula. GENERAL: Awake, alert and oriented to person, place and time, answering questions appropriately, in no distress. HEENT: Face is symmetric. Tongue is midline. Moist mucous membranes. NECK: No JVD or thyromegaly. LUNGS: Diminished. Bibasilar crackles. HEART: S1 and S2, sinus rhythm. ABDOMEN: Soft, nontender and nondistended. Positive bowel sounds. EXTREMITIES: No cyanosis, clubbing or pitting edema. LABORATORY DATA/IMAGING STUDIES/MICROBIOLOGY: Please see the chart. ASSESSMENT AND PLAN: An 85-year-old male with a history of recurrent aspiration treated for aspiration pneumonia in October 2020, CAD status post CABG, diastolic CHF, hypertension, chronic atrial fibrillation on Eliquis, pacemaker with severe lumbar spinal stenosis, bladder cancer status post chemo, abdominal aortic aneurysm repair, presented with a two day history of fever and cough, found to have bilateral lower lobe pneumonia, admitted for IV antibiotics. IMPRESSION: 1. Right lower lobe pneumonia. Patient was given IV Ceftriaxone in the Emergency Room. Due to a history of multiple hospitalizations, patient is being covered with IV Zosyn for anaerobic coverage due to a history of aspiration. He is sent for blood cultures which have been negative. Sputum cultures are still pending. White count was elevated. MRSA was positive, Strep pneumo and Legionella are still pending. Patient is on Vancomycin and Zosyn for now and Doxycycline. Await sputum culture results and then deescalate the antibiotics. 2. Acute kidney injury. Patient's diuretic was temporarily held. Creatinine is improved today. CT of the chest did not show any fluid overload or pulmonary edema. 3. Hypertension, controlled. Patient's furosemide has been held due to renal failure. Wait until the patient's creatinine is back to normal then restart the torsemide. 4. Hypothyroidism, on Synthroid. 5. BPH, on Flomax. 6. Chronic atrial fibrillation, on amiodarone and Eliquis. 7. Generalized weakness due to pneumonia. PT/OT consulted. 8. Chronic anemia, on ferrous gluconate. No active GI bleed. DISPOSITION: Discharge home in 1-2 days pending clinical improvement.
[2021-02-28] MEDS: VANCOMYCIN HCL 500 MG in D5W MINI-BAG PLUS 100 ML IV SCH (15:35)
[2021-02-28] MEDS: PREGABALIN 75 MG CAP(LYRICA) PO SCH (20:08)
[2021-02-28 22:00] VITALS: BP 130/59
[2021-03-01] MEDS: DOXYCYCLINE HYCLATE 100 MG in D5W MINI-BAG PLUS 100 ML IV SCH (02:01)
[2021-03-01] MEDS: PIPERACILLIN/TAZOBACTAM SOD 3.375 GM in D5W MINI-BAG PLUS 50 ML IV SCH ×3 (03:24→13:05)
[2021-03-01] MEDS: LEVOTHYROXINE 112MCG TABLET (0.112MG) PO SCH (05:30)
[2021-03-01 06:00] VITALS: BP 143/61
[2021-03-01] MEDS ORDERED: BACITAB PO (08:05)
[2021-03-01] MEDS ORDERED: MOXI1TAB PO (08:05)
[2021-03-01] MEDS ORDERED: METR-265 PO (08:05)
[2021-03-01 08:17] LABS: EOS # 0.1 10^3/uL (0.0-0.5); EOS % 1.3 % (0.0-3.0); HEMATOCRIT 27.3 % (42.0-52.0); HEMOGLOBIN 8.5 g/dl (13.5-17.5); LYMPH % 9.5 % (24.0-44.0); MEAN CORPUSCULAR HGB CONC 31.1 g/dl (32.0-36.5); MEAN CORPUSCULAR VOLUME 89.8 fl (80.0-96.0); MONO # 0.6 10^3/uL (0.0-0.8); MONO % 5.9 % (2.0-8.0); NEUTROPHILS # 8.7 10^3/uL (1.5-8.5); NEUTROPHILS % 82.7 % (36.0-66.0); PLATELET COUNT, AUTOMATED 172 10^3/uL (150-450); RED BLOOD COUNT 3.04 10^6/uL (4.30-6.10); WHITE BLOOD COUNT 10.5 10^3/uL (4.0-10.0)
[2021-03-01] MEDS: ASPIRIN 81MG ENTERIC TABLET PO SCH (08:20)
[2021-03-01] MEDS: MULTIVITAMINS/MINERALS THERAP 1 TAB PO SCH (08:20)
[2021-03-01] MEDS: FERROUS GLUCONATE 324 MG TAB PO SCH (08:21)
[2021-03-01] MEDS: AMIODARONE 200 MG TAB (PACERONE) PO SCH (08:21)
[2021-03-01] MEDS: FINASTERIDE 5 MG TAB PO SCH (08:21)
[2021-03-01] MEDS: ATORVASTATIN 20 MG TAB PO SCH (08:21)
[2021-03-01] MEDS: PANTOPRAZOLE 40MG TAB (PROTONIX) PO SCH (08:21)
[2021-03-01] MEDS: TAMSULOSIN 0.4 MG CAP PO SCH (08:21)
[2021-03-01] MEDS: LACTOBACILLUS ACIDOPHILUS CAP (BACID) PO SCH ×2 (08:21→13:04)
[2021-03-01] MEDS: APIXABAN 2.5 MG TAB (ELIQUIS) PO SCH (08:21)
[2021-03-01 08:41] LABS: CALCIUM LEVEL 8.9 MG/DL (8.8-10.2); CREATININE FOR GFR 1.31 MG/DL (0.70-1.30); POTASSIUM SERUM 3.9 MEQ/L (3.5-5.1)
[2021-03-01] MEDS ORDERED: DOXY-350 PO (10:34)
[2021-03-01 14:00] VITALS: BP 108/45
--- NOTE | 2021-03-01 14:03 | DSES ---
DISCHARGE SUMMARY DATE OF ADMISSION: 02/27/2021 DATE OF DISCHARGE: 03/01/2021 PRIMARY DISCHARGE DIAGNOSES: 1. Right lower lobe pneumonia. 2. Recurrent aspiration/chronic aspiration. 3. Hypertension. 4. Hypothyroidism. 5. Chronic atrial fibrillation on Eliquis. 6. BPH. 7. Hypertension. 8. Debility with generalized weakness secondary to pneumonia. 9. Chronic anemia. 10.History of CAD; status post CABG. 11.History of diastolic congestive heart failure; compensated. 12.Chronic constipation. 13.History of prostate CA; status post transurethral resection of the prostate. 14.Severe lumbar spinal stenosis. DISCHARGE MEDICATIONS: 1. Albuterol q.i.d. 2. Amiodarone 200 mg daily. 3. Apixaban 2.5 b.i.d. 4. Aspirin 81 mg daily. 5. Atorvastatin 20 mg daily. 6. Ferrous gluconate 324 daily. 7. Finasteride 5 daily. 8. Fluticasone b.i.d. as needed. 9. Synthroid 112 mcg daily. 10.Multivitamin one tablet daily. 11.Protonix 40 mg daily. 12.Lyrica 75 mg q.h.s. 13.Flomax 0.4 mg daily. 14.Torsemide 10 daily. 15.Fish Oil 1,200 mg one capsule b.i.d. 16.Flagyl 500 mg every 8 hours. 17.Doxycycline l00 b.i.d. 18.Pepcid one tablet with meals and q.h.s. 19.Avelox 400 mg daily. HOSPITAL COURSE: This is an 86-year-old male who lives at home, who presents to the Emergency Room with two day history of fever 102 at home, cough productive of beasley-white thick sputum without headache, diarrhea, chest pain, pressure, tightness or dyspnea. Patient has not had any sick contacts. No recent travel. In the Emergency Room, patient was found to be septic with white count of 18.9. Chest x-ray showing bilateral bibasilar pneumonia. CT chest shows right lower lobe consolidation with right pleural effusion, multifocal opacities compatible with pneumonia. Due to history of chronic aspiration, swallow evaluation was done and recommended level 2 mechanical soft diet. Patient was started on Vancomycin and Zosyn to cover for gram negative and anaerobic infection. Patient had positive MRSA screen. He was kept on contact precautions and had symptomatic improvement with white count decreasing to 10.5 on discharge. He remained afebrile with no complaints of shortness of breath. He is saturating 95% on room air. PHYSICAL EXAMINATION ON DISCHARGE: VITAL SIGNS: Temperature 97.8, pulse 55, respiratory rate 14, blood pressure 143/61, 95% on room air. GENERAL: Awake, alert and oriented to person, place. Answering questions appropriately. HEENT: Face is symmetric. Tongue is midline. No JVD, thyromegaly or cervical lymphadenopathy. LUNGS: Diminished with crackles at the right base. HEART: S1, S2, sinus bradycardia. ABDOMEN: Soft, nontender, non-distended. Positive bowel sounds x4 quadrants. EXTREMITIES: No cyanosis, clubbing or pitting edema. LABORATORY DATA/IMAGING STUDIES/MICROBIOLOGY: Please see the chart. TIME SPENT ON DISCHARGE: 30 minutes. MTDD
[2021-03-01] MEDS: VANCOMYCIN HCL 500 MG in D5W MINI-BAG PLUS 100 ML IV SCH (14:23)
--- NOTE | 2021-03-02 07:28 | ECGEPIP ---
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
[2021-03-03 15:07] LABS: BODY FLUID CULTURE Not indicated. (.); LEGIONELLA ANTIGEN URINE Negative (Negative); ORGANISM ID Not indicated. (.); SPECIMEN SOURCE Urine (.); URINE STREP PNEUMONIAE ANTIGEN Negative (Negative)
--- NOTE | 2021-03-05 09:39 | DS.PDOC ---
Discharge Summary General Date of Admission Feb 27, 2021 at 12:36 Date of Discharge 03/01/21 Discharge Summary ADDENDUM TO DC SUMMARY: DISCHARGE DIAGNOSES: ASPIRATION PNEUMONIA Vital Signs/I&Os Vital Signs Date Time Temp Pulse Resp B/P (MAP) Pulse Ox O2 Delivery O2 Flow Rate FiO2 03/01/21 14:00 96.5 50 21 108/45 (66) 97 Room Air 02/28/21 14:00 1.0 Microbiology Microbiology 02/27/21 Gram Stain - Final, Complete 02/27/21 Sputum Culture - Final, Complete Serratia Marcescens Staph.aureus Methicillin Resis 02/27/21 Blood Culture - Final, Complete NO GROWTH AFTER 5 DAYS 02/27/21 Respiratory Virus Panel (PCR) (MAINE) - Final, Complete 02/27/21 Blood Culture - Final, Complete NO GROWTH AFTER 5 DAYS Discharge Medications Scheduled Amiodarone HCl (Amiodarone HCl) 200 Mg Tablet, 200 MG PO DAILY, (Reported) Apixaban (Eliquis) 2.5 Mg Tablet, 2.5 MG PO BID, (Reported) Aspirin (Aspirin EC) 81 Mg Tablet.dr, 81 MG PO DAILY, (Reported) Atorvastatin Calcium (Atorvastatin Calcium) 20 Mg Tablet, 20 MG PO DAILY, (Reported) Doxycycline Monohydrate (Doxycycline) 100 Mg Capsule, 1 CAP PO BID Ferrous Gluconate (Ferrous Gluconate) 324 Mg Tablet, 324 MG PO DAILY, (Reported) Finasteride (Finasteride) 5 Mg Tablet, 5 MG PO DAILY, (Reported) Fish Oil/Dha/Epa (Fish Oil 1,200 mg Fish Oil) 1 Each Capsule, 1 CAP PO BID, (Reported) L.acidoph/L.bulg/B.bif/S.therm (Bacid Caplet) 1 Each Tablet, 1 TAB PO [facility] Levothyroxine Sodium (Synthroid) 112 Mcg Tablet, 112 MCG PO DAILY, (Reported) Metronidazole (Metronidazole) 500 Mg Tablet, 500 MG PO Q8H Moxifloxacin HCl (Moxifloxacin HCl) 400 Mg Tablet, 400 MG PO DAILY Multivit-Min/FA/Lycopen/Lutein (Centrum Silver Tablet) 1 Each Tablet, 1 TAB PO DAILY, (Reported) Pantoprazole Sodium (Pantoprazole Sodium) 40 Mg Tablet.dr, 40 MG PO DAILY, (Reported) Pregabalin (Pregabalin) 75 Mg Capsule, 75 MG PO QHS, (Reported) Tamsulosin HCl (Flomax) 0.4 Mg Capsule, 0.4 MG PO DAILY, (Reported) once daily 1/2 hour following the same meal each day Torsemide (Torsemide) 10 Mg Tablet, 10 MG PO DAILY, (Reported) Scheduled PRN Albuterol Sulf (Albuterol Sulfate) 2.5 Mg/3 Ml Vial.neb, 1 VIAL NEB QID PRN for SOB/WHEEZING, (Reported) Fluticasone Propionate (Fluticasone Propionate) 16 Gm [place].susp, 1 SPRAY NARES BID PRN for CONGESTION, (Reported) Allergies Coded Allergies: No Known Allergies (Unverified , 12/29/19) EDVIN PACHECO MD Mar 05, 2021 09:38
== END 2021-03-01 16:20 | disposition home health service (06) | DRG 178 ==
LOC: M ED 09:17 → M ED INP 12:36 → M MSPAV 17:41
PROVIDERS: ADMIT General Practice; ATTEND General Practice
DX: J69.0 Pneumonitis due to inhalation of food and vomit (principal); I50.32 Chronic diastolic (congestive) heart failure; I48.20 Chronic atrial fibrillation, unspecified; N17.9 Acute kidney failure, unspecified; I25.10 Atherosclerotic heart disease of native coronary artery without angina pectoris; Z95.5 Presence of coronary angioplasty implant and graft; 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 cardiac pacemaker; I11.0 Hypertensive heart disease with heart failure; E03.9 Hypothyroidism, unspecified; N40.0 Benign prostatic hyperplasia without lower urinary tract symptoms; D50.0 Iron deficiency anemia secondary to blood loss (chronic); Z92.21 Personal history of antineoplastic chemotherapy; M48.061 Spinal stenosis, lumbar region without neurogenic claudication; Z79.01 Long term (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 anticoagulants; Z90.49 Acquired absence of other specified parts of digestive tract; Z98.41 Cataract extraction status, right eye; Z98.42 Cataract extraction status, left eye; Z79.899 Other long term (current) drug therapy; K59.09 Other constipation

== ENCOUNTER → 2021-03-26 | Outpatient (CLI) | payer MEDICARE, BC ==
[~2021-03-26] MED LIST changes: +BACITAB PO; +DOXY-350 PO; +METR-265 PO; +MOXI1TAB PO
--- NOTE | 2021-03-26 14:16 | REP ---
INDICATION: OTHER NONSPECIFIC ABNORMAL FINDING OF LUNG FIELD. COMPARISON: Multiple the latest 02/27/2021 TECHNIQUE: PA and lateral FINDINGS: There is cardiomegaly status quo. The pacemaker device is unchanged. Note is again made of previous median sternotomy. There is a patchy right basilar opacity which has increased from the prior exam. There is bilateral CP angle blunting right greater than left. IMPRESSION: Abnormal opacities right greater than left as described above with bilateral pleural effusions suspected right greater than left. With or without concomitant pneumonia/atelectasis. <Electronically signed by Lizandro Bush > 03/26/21 [id number]
== END ==
LOC: M PLAIMG 13:43
PROVIDERS: ATTEND Internal Medicine Pulmonary Disease
DX: R91.8 Other nonspecific abnormal finding of lung field (principal); I51.7 Cardiomegaly; 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 cardiac pacemaker

== ENCOUNTER 2021-04-15 02:34 | Inpatient (IN) | payer BC, MEDICARE ==
[~2021-04-15] VITALS: Ht 182.9 cm; Wt 87.5 kg
[~2021-04-15 02:34] MED LIST changes: -AMIO200T3 PO; +AMIO200T49 PO
[2021-04-15 03:22] LABS: BASO % 0.2 % (0.0-1.0); EOS # 0.1 10^3/uL (0.0-0.5); EOS % 0.4 % (0.0-3.0); HEMOGLOBIN 8.6 g/dl (13.5-17.5); LYMPH # 0.8 10^3/uL (1.5-5.0); MEAN CORPUSCULAR HEMOGLOBIN 27.8 pg (27.0-33.0); MEAN CORPUSCULAR HGB CONC 30.7 g/dl (32.0-36.5); MEAN CORPUSCULAR VOLUME 90.6 fl (80.0-96.0); MONO # 0.8 10^3/uL (0.0-0.8); MONO % 4.5 % (2.0-8.0); NEUTROPHILS # 14.8 10^3/uL (1.5-8.5); NEUTROPHILS % 89.5 % (36.0-66.0); PLATELET COUNT, AUTOMATED 200 10^3/uL (150-450); RED BLOOD COUNT 3.09 10^6/uL (4.30-6.10); WHITE BLOOD COUNT 16.6 10^3/uL (4.0-10.0)
[2021-04-15 03:56] LABS: ALBUMIN 2.6 GM/DL (3.2-5.2); BILIRUBIN,DIRECT 0.2 MG/DL (0.0-0.2); BILIRUBIN,TOTAL 0.5 MG/DL (0.2-1.0); CALCIUM LEVEL 8.4 MG/DL (8.8-10.2); CREATININE FOR GFR 1.46 MG/DL (0.70-1.30); FREE T4 1.3 NG/DL (0.76-1.46); GLOMERULAR FILTRATION RATE 48.5 (>35); POTASSIUM SERUM 4.2 MEQ/L (3.5-5.1); THYROID STIMULATING HORMONE 8.95 uIU/ML (0.358-3.740); TOTAL PROTEIN 6.8 GM/DL (6.4-8.2)
[2021-04-15] MEDS ORDERED: PIPERACILLIN/TAZOBACTAM SOD 3.375 GM in D5W MINI-BAG PLUS 50 ML IV ONE (04:05)
[2021-04-15] MEDS ORDERED: VANCOMYCIN HCL 1,000 MG, VIAL MATE ADAPTER 1 EACH in NS 250 ML IV ONE (04:05)
[2021-04-15 04:21] LABS: RSV AMPLIFICATION NEGATIVE (NEGATIVE)
[2021-04-15] MEDS ORDERED: POLY17PO18 PO (04:33)
[2021-04-15] MEDS ORDERED: SENN-83 PO (04:33)
[2021-04-15] MEDS ORDERED: HOME MED LIST COMPLETE! XX SCH (04:35)
[2021-04-15] MEDS ORDERED: MOM 30ML SUSPENSION UDC PO PRN (04:55)
[2021-04-15] MEDS ORDERED: FLUTICASONE PROP 0.05% NASAL SPRAY 16 GM (FLONASE) NARES PRN (05:00)
[2021-04-15] MEDS ORDERED: ALBUTEROL 90 MCG/ACT 8GM HFA INHALER INH PRN (05:00)
[2021-04-15] MEDS ORDERED: NS 1,000 ML IV SCH (05:00)
[2021-04-15] MEDS ORDERED: MIRALAX *UNIT DOSE* 17GM PACKET PO PRN (05:00)
[2021-04-15 07:33] LABS: HEMATOCRIT 27.2 % (42.0-52.0); HEMOGLOBIN 8.5 g/dl (13.5-17.5); MEAN CORPUSCULAR HEMOGLOBIN 28.4 pg (27.0-33.0); MEAN CORPUSCULAR HGB CONC 31.3 g/dl (32.0-36.5); PLATELET COUNT, AUTOMATED 185 10^3/uL (150-450); RED BLOOD COUNT 2.99 10^6/uL (4.30-6.10); WHITE BLOOD COUNT 16.9 10^3/uL (4.0-10.0)
[2021-04-15 08:12] LABS: ALBUMIN 2.5 GM/DL (3.2-5.2); BILIRUBIN,TOTAL 0.6 MG/DL (0.2-1.0); CALCIUM LEVEL 8.7 MG/DL (8.8-10.2); CREATININE FOR GFR 1.4 MG/DL (0.70-1.30); GLOMERULAR FILTRATION RATE 50.9 (>35); POTASSIUM SERUM 4.1 MEQ/L (3.5-5.1); TOTAL PROTEIN 6.6 GM/DL (6.4-8.2)
[2021-04-15] MEDS: VANCOMYCIN HCL 1,000 MG, VIAL MATE ADAPTER 1 EACH in NS 250 ML IV SCH (08:53)
[2021-04-15] MEDS: FINASTERIDE 5 MG TAB PO SCH (08:54)
[2021-04-15] MEDS: DOCUSATE SODIUM 100MG CAPSULE PO SCH ×2 (08:54→21:11)
[2021-04-15] MEDS: ATORVASTATIN 20 MG TAB PO SCH (08:54)
[2021-04-15] MEDS: ASPIRIN 81MG ENTERIC TABLET PO SCH (08:54)
[2021-04-15] MEDS: LEVOTHYROXINE 112MCG TABLET (0.112MG) PO SCH (08:54)
[2021-04-15] MEDS: AMIODARONE 200 MG TAB (PACERONE) PO SCH (08:54)
[2021-04-15] MEDS: APIXABAN 2.5 MG TAB (ELIQUIS) PO SCH ×2 (08:54→21:11)
[2021-04-15] MEDS: TAMSULOSIN 0.4 MG CAP PO SCH (08:55)
[2021-04-15] MEDS: PANTOPRAZOLE 40MG TAB (PROTONIX) PO SCH (08:55)
[2021-04-15 10:38] LABS: PH BODY FLUID 7.621 UNITS (NOT ESTABLISHED); SOURCE, BODY FLUID pH PLEURAL
[2021-04-15 10:49] LABS: SOURCE, BODY FLUID PLEURAL
[2021-04-15 10:50] LABS: APPEARANCE, BODY FLUID HAZY (CLEAR); PLEURAL FL COLOR YELLOW (COLORLESS)
[2021-04-15 11:21] LABS: AMYLASE, BODY FLUID 51 U/L (NOT ESTABLISHED); CHOLESTEROL, BODY FLUID < 50 MG/DL (NOT ESTABLISHED); LDH, BODY FLUID 107 U/L (NOT ESTABLISHED); SOURCE, BODY FLUID AMYLASE PLEURAL; SOURCE, BODY FLUID CHOL PLEURAL; SOURCE, BODY FLUID GLUCOSE PLEURAL; SOURCE, BODY FLUID LDH PLEURAL; SOURCE, BODY FLUID TRIG PLEURAL; TRIGLYCERIDE, BODY FLUID 20 MG/DL (NOT ESTABLISHED)
[2021-04-15] MEDS: PIPERACILLIN/TAZOBACTAM SOD 3.375 GM in D5W MINI-BAG PLUS 100 ML IV SCH ×3 (11:36→22:43)
[2021-04-15] MEDS: guaiFENesin ER 600 MG TAB PO SCH ×2 (11:37→21:11)
[2021-04-15] MEDS ORDERED: PREPARATION H SUPP (HEMORRHOID) PR PRN (13:45)
[2021-04-15] MEDS: FERROUS GLUCONATE 324 MG TAB PO SCH (16:47)
[2021-04-15 20:00] VITALS: BP 111/56
[2021-04-15] MEDS: PREGABALIN 75 MG CAP(LYRICA) PO SCH (21:11)
[2021-04-16] VITALS (21 sets, daily range): BP systolic 100–136; BP diastolic 46–66
[2021-04-16] MEDS: VANCOMYCIN HCL 1,000 MG, VIAL MATE ADAPTER 1 EACH in NS 250 ML IV SCH ×2 (01:46→21:10)
[2021-04-16] MEDS: PIPERACILLIN/TAZOBACTAM SOD 3.375 GM in D5W MINI-BAG PLUS 100 ML IV SCH ×3 (05:08→17:39)
[2021-04-16] MEDS: LEVOTHYROXINE 112MCG TABLET (0.112MG) PO SCH (05:25)
[2021-04-16 06:04] LABS: BASO % 0.3 % (0.0-1.0); EOS # 0.5 10^3/uL (0.0-0.5); EOS % 5.4 % (0.0-3.0); HEMATOCRIT 26.3 % (42.0-52.0); HEMOGLOBIN 8.1 g/dl (13.5-17.5); LYMPH # 0.9 10^3/uL (1.5-5.0); LYMPH % 9.3 % (24.0-44.0); MEAN CORPUSCULAR HEMOGLOBIN 28.2 pg (27.0-33.0); MEAN CORPUSCULAR HGB CONC 30.8 g/dl (32.0-36.5); MEAN CORPUSCULAR VOLUME 91.6 fl (80.0-96.0); MONO # 0.6 10^3/uL (0.0-0.8); MONO % 5.5 % (2.0-8.0); NEUTROPHILS # 7.9 10^3/uL (1.5-8.5); NEUTROPHILS % 79.1 % (36.0-66.0); PLATELET COUNT, AUTOMATED 166 10^3/uL (150-450); RED BLOOD COUNT 2.87 10^6/uL (4.30-6.10)
[2021-04-16 06:33] LABS: CALCIUM LEVEL 8.4 MG/DL (8.8-10.2); CREATININE FOR GFR 1.28 MG/DL (0.70-1.30); GLOMERULAR FILTRATION RATE 56.5 (>35); MAGNESIUM LEVEL 2.2 MG/DL (1.8-2.4); POTASSIUM SERUM 4.1 MEQ/L (3.5-5.1)
[2021-04-16] MEDS: ASPIRIN 81MG ENTERIC TABLET PO SCH (08:32)
[2021-04-16] MEDS: AMIODARONE 200 MG TAB (PACERONE) PO SCH (08:33)
[2021-04-16] MEDS: APIXABAN 2.5 MG TAB (ELIQUIS) PO SCH ×2 (08:33→21:07)
[2021-04-16] MEDS: FINASTERIDE 5 MG TAB PO SCH (08:33)
[2021-04-16] MEDS: PANTOPRAZOLE 40MG TAB (PROTONIX) PO SCH (08:33)
[2021-04-16] MEDS: guaiFENesin ER 600 MG TAB PO SCH ×2 (08:33→21:08)
[2021-04-16] MEDS: DOCUSATE SODIUM 100MG CAPSULE PO SCH ×2 (08:33→21:07)
[2021-04-16] MEDS: FERROUS GLUCONATE 324 MG TAB PO SCH (08:33)
[2021-04-16] MEDS: TAMSULOSIN 0.4 MG CAP PO SCH (08:34)
[2021-04-16] MEDS: ATORVASTATIN 20 MG TAB PO SCH (08:34)
[2021-04-16] MEDS ORDERED: MIDAZOLAM INJ 2MG/2ML VIAL (J2250 PER 1MG) As Ordered ONE (12:01)
[2021-04-16] MEDS ORDERED: fentaNYL 100 MCG/2 ML INJECTION (J3010) As Ordered ONE (12:02)
[2021-04-16] MEDS ORDERED: LIDOCAINE 1% MDV 20ML VIAL As Ordered ONE (12:22)
[2021-04-16] MEDS ORDERED: MIDAZOLAM INJ 2MG/2ML VIAL (J2250 PER 1MG) IV STA ×2 (12:51)
[2021-04-16] MEDS ORDERED: fentaNYL 100 MCG/2 ML INJECTION (J3010) IV ONE (12:55)
[2021-04-16] MEDS ORDERED: MORPHINE 2 MG/ML 1ML VIAL (J2270) IV PRN (13:25)
[2021-04-16] MEDS ORDERED: NORCO, ANEXSIA 5/325MG TABLET (HYDROcodone/ACETAMINOPHEN) PO PRN (13:25)
[2021-04-16 15:08] LABS: MYCOPLASMA PNEUMONIAE IgG 236 U/mL (0-99); MYCOPLASMA PNEUMONIAE IgM <770 U/mL (0-769)
[2021-04-16] MEDS: ACETAMINOPHEN TAB 650MG DOSE (2X325MG) PO PRN (17:39)
[2021-04-16] MEDS: PREGABALIN 75 MG CAP(LYRICA) PO SCH (21:08)
[2021-04-17] MEDS: PIPERACILLIN/TAZOBACTAM SOD 3.375 GM in D5W MINI-BAG PLUS 100 ML IV SCH ×5 (00:46→23:14)
[2021-04-17] MEDS: ACETAMINOPHEN TAB 650MG DOSE (2X325MG) PO PRN ×2 (00:52→08:32)
[2021-04-17 05:47] LABS: BASO % 0.2 % (0.0-1.0); EOS # 0.7 10^3/uL (0.0-0.5); EOS % 6.8 % (0.0-3.0); HEMATOCRIT 25.4 % (42.0-52.0); HEMOGLOBIN 7.9 g/dl (13.5-17.5); LYMPH # 0.9 10^3/uL (1.5-5.0); LYMPH % 8.3 % (24.0-44.0); MEAN CORPUSCULAR HEMOGLOBIN 28.2 pg (27.0-33.0); MEAN CORPUSCULAR HGB CONC 31.1 g/dl (32.0-36.5); MEAN CORPUSCULAR VOLUME 90.7 fl (80.0-96.0); MONO # 0.6 10^3/uL (0.0-0.8); MONO % 5.5 % (2.0-8.0); NEUTROPHILS # 8.4 10^3/uL (1.5-8.5); NEUTROPHILS % 78.8 % (36.0-66.0); PLATELET COUNT, AUTOMATED 180 10^3/uL (150-450); WHITE BLOOD COUNT 10.7 10^3/uL (4.0-10.0)
[2021-04-17 06:00] VITALS: BP 111/53
[2021-04-17 06:20] LABS: CALCIUM LEVEL 8.4 MG/DL (8.8-10.2); CREATININE FOR GFR 1.35 MG/DL (0.70-1.30); GLOMERULAR FILTRATION RATE 53.1 (>35); MAGNESIUM LEVEL 2.1 MG/DL (1.8-2.4); POTASSIUM SERUM 3.7 MEQ/L (3.5-5.1)
[2021-04-17] MEDS: LEVOTHYROXINE 112MCG TABLET (0.112MG) PO SCH (06:23)
[2021-04-17 08:00] VITALS: BP 122/56
[2021-04-17] MEDS: FINASTERIDE 5 MG TAB PO SCH (08:32)
[2021-04-17] MEDS: APIXABAN 2.5 MG TAB (ELIQUIS) PO SCH ×2 (08:32→21:54)
[2021-04-17] MEDS: AMIODARONE 200 MG TAB (PACERONE) PO SCH (08:32)
[2021-04-17] MEDS: PANTOPRAZOLE 40MG TAB (PROTONIX) PO SCH (08:32)
[2021-04-17] MEDS: ASPIRIN 81MG ENTERIC TABLET PO SCH (08:32)
[2021-04-17] MEDS: TAMSULOSIN 0.4 MG CAP PO SCH (08:32)
[2021-04-17] MEDS: DOCUSATE SODIUM 100MG CAPSULE PO SCH ×2 (08:32→21:54)
[2021-04-17] MEDS: guaiFENesin ER 600 MG TAB PO SCH ×2 (08:33→21:54)
[2021-04-17] MEDS: ATORVASTATIN 20 MG TAB PO SCH (08:33)
[2021-04-17] MEDS: FERROUS GLUCONATE 324 MG TAB PO SCH (08:33)
[2021-04-17 12:00] VITALS: BP 105/53
[2021-04-17] MEDS ORDERED: VANCOMYCIN HCL 1,000 MG, VIAL MATE ADAPTER 1 EACH in NS 250 ML IV SCH (15:00)
[2021-04-17 16:00] VITALS: BP 128/58
[2021-04-17 20:00] VITALS: BP 122/56
[2021-04-17] MEDS: PREGABALIN 75 MG CAP(LYRICA) PO SCH (21:54)
[2021-04-18] VITALS: BP 114/53
[2021-04-18 04:00] VITALS: BP 114/50
[2021-04-18] MEDS: LEVOTHYROXINE 112MCG TABLET (0.112MG) PO SCH (06:31)
[2021-04-18] MEDS: PIPERACILLIN/TAZOBACTAM SOD 3.375 GM in D5W MINI-BAG PLUS 100 ML IV SCH ×4 (06:31→22:21)
[2021-04-18 06:36] LABS: BASO % 0.2 % (0.0-1.0); EOS # 0.5 10^3/uL (0.0-0.5); EOS % 4.7 % (0.0-3.0); HEMATOCRIT 23.9 % (42.0-52.0); HEMOGLOBIN 7.6 g/dl (13.5-17.5); LYMPH # 1.1 10^3/uL (1.5-5.0); LYMPH % 10.6 % (24.0-44.0); MEAN CORPUSCULAR HEMOGLOBIN 28.5 pg (27.0-33.0); MEAN CORPUSCULAR HGB CONC 31.8 g/dl (32.0-36.5); MEAN CORPUSCULAR VOLUME 89.5 fl (80.0-96.0); MONO # 0.6 10^3/uL (0.0-0.8); MONO % 5.9 % (2.0-8.0); NEUTROPHILS # 8.3 10^3/uL (1.5-8.5); NEUTROPHILS % 78.2 % (36.0-66.0); PLATELET COUNT, AUTOMATED 175 10^3/uL (150-450); RED BLOOD COUNT 2.67 10^6/uL (4.30-6.10); WHITE BLOOD COUNT 10.6 10^3/uL (4.0-10.0)
[2021-04-18 06:50] LABS: CALCIUM LEVEL 8.5 MG/DL (8.8-10.2); CREATININE FOR GFR 1.39 MG/DL (0.70-1.30); GLOMERULAR FILTRATION RATE 51.3 (>35); POTASSIUM SERUM 3.5 MEQ/L (3.5-5.1)
[2021-04-18 08:00] VITALS: BP 113/54
[2021-04-18] MEDS: ATORVASTATIN 20 MG TAB PO SCH (08:10)
[2021-04-18] MEDS: PANTOPRAZOLE 40MG TAB (PROTONIX) PO SCH (08:10)
[2021-04-18] MEDS: DOCUSATE SODIUM 100MG CAPSULE PO SCH ×2 (08:10→21:33)
[2021-04-18] MEDS: ASPIRIN 81MG ENTERIC TABLET PO SCH (08:10)
[2021-04-18] MEDS: FERROUS GLUCONATE 324 MG TAB PO SCH (08:10)
[2021-04-18] MEDS: TAMSULOSIN 0.4 MG CAP PO SCH (08:11)
[2021-04-18] MEDS: AMIODARONE 200 MG TAB (PACERONE) PO SCH (08:11)
[2021-04-18] MEDS: guaiFENesin ER 600 MG TAB PO SCH ×2 (08:11→21:33)
[2021-04-18] MEDS: APIXABAN 2.5 MG TAB (ELIQUIS) PO SCH ×2 (08:11→21:33)
[2021-04-18] MEDS: FINASTERIDE 5 MG TAB PO SCH (08:11)
[2021-04-18 12:00] VITALS: BP 123/57
[2021-04-18 16:00] VITALS: BP 118/59
[2021-04-18 19:12] LABS: BODY FLUID CULTURE Not indicated. (.); LEGIONELLA ANTIGEN URINE Negative (Negative); ORGANISM ID Not indicated. (.); SPECIMEN SOURCE Urine (.); URINE STREP PNEUMONIAE ANTIGEN Negative (Negative)
[2021-04-18 20:00] VITALS: BP 123/58
[2021-04-18] MEDS: PREGABALIN 75 MG CAP(LYRICA) PO SCH (21:33)
[2021-04-19] VITALS: BP 121/65
[2021-04-19 04:00] VITALS: BP 139/58
[2021-04-19 05:27] LABS: BASO % 0.4 % (0.0-1.0); EOS # 0.7 10^3/uL (0.0-0.5); EOS % 7.4 % (0.0-3.0); HEMATOCRIT 23.6 % (42.0-52.0); HEMOGLOBIN 7.4 g/dl (13.5-17.5); LYMPH # 1.1 10^3/uL (1.5-5.0); LYMPH % 12.1 % (24.0-44.0); MEAN CORPUSCULAR HEMOGLOBIN 27.8 pg (27.0-33.0); MEAN CORPUSCULAR HGB CONC 31.4 g/dl (32.0-36.5); MEAN CORPUSCULAR VOLUME 88.7 fl (80.0-96.0); MONO # 0.7 10^3/uL (0.0-0.8); MONO % 7.8 % (2.0-8.0); NEUTROPHILS # 6.6 10^3/uL (1.5-8.5); NEUTROPHILS % 71.8 % (36.0-66.0); PLATELET COUNT, AUTOMATED 198 10^3/uL (150-450); RED BLOOD COUNT 2.66 10^6/uL (4.30-6.10); WHITE BLOOD COUNT 9.2 10^3/uL (4.0-10.0)
[2021-04-19 05:43] LABS: CALCIUM LEVEL 8.7 MG/DL (8.8-10.2); CREATININE FOR GFR 1.26 MG/DL (0.70-1.30); GLOMERULAR FILTRATION RATE 57.5 (>35); MAGNESIUM LEVEL 2.1 MG/DL (1.8-2.4); POTASSIUM SERUM 3.3 MEQ/L (3.5-5.1)
[2021-04-19] MEDS: LEVOTHYROXINE 112MCG TABLET (0.112MG) PO SCH (06:50)
[2021-04-19] MEDS: PIPERACILLIN/TAZOBACTAM SOD 3.375 GM in D5W MINI-BAG PLUS 100 ML IV SCH ×4 (06:51→22:56)
[2021-04-19 08:00] VITALS: BP 126/58
[2021-04-19] MEDS ORDERED: POTASSIUM CHLORIDE 10MEQ SR TABLET PO ONE (08:00)
[2021-04-19] MEDS: ASPIRIN 81MG ENTERIC TABLET PO SCH (08:27)
[2021-04-19] MEDS: guaiFENesin ER 600 MG TAB PO SCH ×2 (08:28→21:23)
[2021-04-19] MEDS: APIXABAN 2.5 MG TAB (ELIQUIS) PO SCH ×2 (08:28→21:23)
[2021-04-19] MEDS: TAMSULOSIN 0.4 MG CAP PO SCH (08:28)
[2021-04-19] MEDS: FINASTERIDE 5 MG TAB PO SCH (08:28)
[2021-04-19] MEDS: ATORVASTATIN 20 MG TAB PO SCH (08:28)
[2021-04-19] MEDS: AMIODARONE 200 MG TAB (PACERONE) PO SCH (08:28)
[2021-04-19] MEDS: DOCUSATE SODIUM 100MG CAPSULE PO SCH ×2 (08:28→21:23)
[2021-04-19] MEDS: FERROUS GLUCONATE 324 MG TAB PO SCH (08:28)
[2021-04-19] MEDS: PANTOPRAZOLE 40MG TAB (PROTONIX) PO SCH (08:28)
[2021-04-19 13:24] VITALS: BP 141/63
[2021-04-19 16:13] VITALS: BP 149/65
[2021-04-19 17:54] LABS: HEMATOCRIT 26.1 % (42.0-52.0); HEMOGLOBIN 8.2 g/dl (13.5-17.5)
[2021-04-19 20:00] VITALS: BP 132/61
[2021-04-19] MEDS: PREGABALIN 75 MG CAP(LYRICA) PO SCH (21:23)
[2021-04-20] VITALS (11 sets, daily range): BP systolic 111–147; BP diastolic 60–70
[2021-04-20 05:46] LABS: BASO % 0.4 % (0.0-1.0); EOS # 0.8 10^3/uL (0.0-0.5); EOS % 10.3 % (0.0-3.0); HEMATOCRIT 23.4 % (42.0-52.0); HEMOGLOBIN 7.4 g/dl (13.5-17.5); LYMPH # 1.1 10^3/uL (1.5-5.0); LYMPH % 13.5 % (24.0-44.0); MEAN CORPUSCULAR HGB CONC 31.6 g/dl (32.0-36.5); MEAN CORPUSCULAR VOLUME 88.6 fl (80.0-96.0); MONO # 0.6 10^3/uL (0.0-0.8); MONO % 7.5 % (2.0-8.0); NEUTROPHILS # 5.5 10^3/uL (1.5-8.5); NEUTROPHILS % 67.6 % (36.0-66.0); PLATELET COUNT, AUTOMATED 206 10^3/uL (150-450); RED BLOOD COUNT 2.64 10^6/uL (4.30-6.10); WHITE BLOOD COUNT 8.1 10^3/uL (4.0-10.0)
[2021-04-20 06:07] LABS: CALCIUM LEVEL 8.4 MG/DL (8.8-10.2); CREATININE FOR GFR 1.27 MG/DL (0.70-1.30); MAGNESIUM LEVEL 2.1 MG/DL (1.8-2.4); POTASSIUM SERUM 3.7 MEQ/L (3.5-5.1)
[2021-04-20] MEDS: LEVOTHYROXINE 112MCG TABLET (0.112MG) PO SCH (06:29)
[2021-04-20] MEDS: APIXABAN 2.5 MG TAB (ELIQUIS) PO SCH ×2 (09:23→21:47)
[2021-04-20] MEDS: PANTOPRAZOLE 40MG TAB (PROTONIX) PO SCH (09:23)
[2021-04-20] MEDS: ATORVASTATIN 20 MG TAB PO SCH (09:23)
[2021-04-20] MEDS: ASPIRIN 81MG ENTERIC TABLET PO SCH (09:23)
[2021-04-20] MEDS: FINASTERIDE 5 MG TAB PO SCH (09:23)
[2021-04-20] MEDS: TAMSULOSIN 0.4 MG CAP PO SCH (09:23)
[2021-04-20] MEDS: FERROUS GLUCONATE 324 MG TAB PO SCH (09:23)
[2021-04-20] MEDS: DOCUSATE SODIUM 100MG CAPSULE PO SCH ×2 (09:23→21:47)
[2021-04-20] MEDS: AMIODARONE 200 MG TAB (PACERONE) PO SCH (09:23)
[2021-04-20] MEDS: guaiFENesin ER 600 MG TAB PO SCH ×2 (09:23→21:47)
[2021-04-20 18:47] LABS: HEMATOCRIT 31.2 % (42.0-52.0)
[2021-04-20 19:02] LABS: HEMOGLOBIN 9.9 g/dl (13.5-17.5)
[2021-04-20] MEDS: PREGABALIN 75 MG CAP(LYRICA) PO SCH (21:47)
[2021-04-21] VITALS: BP 136/65
[2021-04-21 04:00] VITALS: BP 131/59
[2021-04-21 05:14] LABS: BASO % 0.4 % (0.0-1.0); EOS # 0.7 10^3/uL (0.0-0.5); EOS % 7.7 % (0.0-3.0); HEMATOCRIT 28.7 % (42.0-52.0); HEMOGLOBIN 9.1 g/dl (13.5-17.5); LYMPH % 11.5 % (24.0-44.0); MEAN CORPUSCULAR HGB CONC 31.7 g/dl (32.0-36.5); MEAN CORPUSCULAR VOLUME 88.3 fl (80.0-96.0); MONO # 0.7 10^3/uL (0.0-0.8); MONO % 7.8 % (2.0-8.0); NEUTROPHILS # 6.1 10^3/uL (1.5-8.5); NEUTROPHILS % 71.9 % (36.0-66.0); PLATELET COUNT, AUTOMATED 207 10^3/uL (150-450); RED BLOOD COUNT 3.25 10^6/uL (4.30-6.10); WHITE BLOOD COUNT 8.5 10^3/uL (4.0-10.0)
[2021-04-21 05:34] LABS: BLOOD UREA NITROGEN 22 MG/DL (7-18); CALCIUM LEVEL 8.5 MG/DL (8.8-10.2); CARBON DIOXIDE LEVEL 26 MEQ/L (21-32); CHLORIDE LEVEL 111 MEQ/L (98-107); CREATININE FOR GFR 0.99 MG/DL (0.70-1.30); GLOMERULAR FILTRATION RATE > 60.0 (>35); GLUCOSE, FASTING 125 MG/DL (70-100); MAGNESIUM LEVEL 1.9 MG/DL (1.8-2.4); POTASSIUM SERUM 3.8 MEQ/L (3.5-5.1); SODIUM LEVEL 143 MEQ/L (136-145)
[2021-04-21] MEDS: LEVOTHYROXINE 112MCG TABLET (0.112MG) PO SCH (06:00)
[2021-04-21 08:21] VITALS: BP 150/68
[2021-04-21] MEDS: DOCUSATE SODIUM 100MG CAPSULE PO SCH ×2 (09:36→21:16)
[2021-04-21] MEDS: APIXABAN 2.5 MG TAB (ELIQUIS) PO SCH ×2 (09:36→21:16)
[2021-04-21] MEDS: FINASTERIDE 5 MG TAB PO SCH (09:36)
[2021-04-21] MEDS: ASPIRIN 81MG ENTERIC TABLET PO SCH (09:36)
[2021-04-21] MEDS: AMIODARONE 200 MG TAB (PACERONE) PO SCH (09:36)
[2021-04-21] MEDS: PANTOPRAZOLE 40MG TAB (PROTONIX) PO SCH (09:37)
[2021-04-21] MEDS: ATORVASTATIN 20 MG TAB PO SCH (09:37)
[2021-04-21] MEDS: FERROUS GLUCONATE 324 MG TAB PO SCH (09:37)
[2021-04-21] MEDS: guaiFENesin ER 600 MG TAB PO SCH ×2 (09:37→21:16)
[2021-04-21] MEDS: TAMSULOSIN 0.4 MG CAP PO SCH (09:37)
[2021-04-21 11:53] VITALS: BP 128/61
[2021-04-21 15:10] VITALS: BP 113/56
[2021-04-21 20:00] VITALS: BP 149/67
[2021-04-21] MEDS: PREGABALIN 75 MG CAP(LYRICA) PO SCH (21:16)
[2021-04-22] VITALS: BP 130/61
[2021-04-22 04:00] VITALS: BP 127/60
[2021-04-22 05:19] LABS: BASO % 0.6 % (0.0-1.0); EOS # 0.7 10^3/uL (0.0-0.5); EOS % 9.4 % (0.0-3.0); HEMATOCRIT 29.4 % (42.0-52.0); HEMOGLOBIN 9.3 g/dl (13.5-17.5); LYMPH # 1.1 10^3/uL (1.5-5.0); LYMPH % 15.5 % (24.0-44.0); MEAN CORPUSCULAR HEMOGLOBIN 28.4 pg (27.0-33.0); MEAN CORPUSCULAR HGB CONC 31.6 g/dl (32.0-36.5); MEAN CORPUSCULAR VOLUME 89.6 fl (80.0-96.0); MONO # 0.6 10^3/uL (0.0-0.8); MONO % 8.8 % (2.0-8.0); NEUTROPHILS # 4.5 10^3/uL (1.5-8.5); NEUTROPHILS % 64.7 % (36.0-66.0); PLATELET COUNT, AUTOMATED 225 10^3/uL (150-450); RED BLOOD COUNT 3.28 10^6/uL (4.30-6.10)
[2021-04-22 05:42] LABS: BLOOD UREA NITROGEN 19 MG/DL (7-18); CALCIUM LEVEL 8.7 MG/DL (8.8-10.2); CARBON DIOXIDE LEVEL 27 MEQ/L (21-32); CHLORIDE LEVEL 111 MEQ/L (98-107); CREATININE FOR GFR 0.94 MG/DL (0.70-1.30); GLOMERULAR FILTRATION RATE > 60.0 (>35); GLUCOSE, FASTING 92 MG/DL (70-100); MAGNESIUM LEVEL 2.1 MG/DL (1.8-2.4); POTASSIUM SERUM 3.9 MEQ/L (3.5-5.1); SODIUM LEVEL 143 MEQ/L (136-145)
[2021-04-22] MEDS: LEVOTHYROXINE 112MCG TABLET (0.112MG) PO SCH (06:18)
[2021-04-22 08:00] VITALS: BP 144/65
[2021-04-22] MEDS: ATORVASTATIN 20 MG TAB PO SCH (08:33)
[2021-04-22] MEDS: DOCUSATE SODIUM 100MG CAPSULE PO SCH ×2 (08:33→22:01)
[2021-04-22] MEDS: APIXABAN 2.5 MG TAB (ELIQUIS) PO SCH ×2 (08:33→22:00)
[2021-04-22] MEDS: ASPIRIN 81MG ENTERIC TABLET PO SCH (08:33)
[2021-04-22] MEDS: guaiFENesin ER 600 MG TAB PO SCH ×2 (08:33→22:01)
[2021-04-22] MEDS: PANTOPRAZOLE 40MG TAB (PROTONIX) PO SCH (08:33)
[2021-04-22] MEDS: FERROUS GLUCONATE 324 MG TAB PO SCH (08:33)
[2021-04-22] MEDS: TAMSULOSIN 0.4 MG CAP PO SCH (08:33)
[2021-04-22] MEDS: AMIODARONE 200 MG TAB (PACERONE) PO SCH (08:33)
[2021-04-22] MEDS: FINASTERIDE 5 MG TAB PO SCH (08:34)
[2021-04-22 12:00] VITALS: BP 125/60
[2021-04-22 16:00] VITALS: BP 139/66
[2021-04-22 20:00] VITALS: BP 130/59
[2021-04-22] MEDS: PREGABALIN 75 MG CAP(LYRICA) PO SCH (22:00)
[2021-04-23] VITALS: BP 149/67
[2021-04-23 04:00] VITALS: BP 140/65
[2021-04-23] MEDS: LEVOTHYROXINE 112MCG TABLET (0.112MG) PO SCH (05:13)
[2021-04-23 06:15] LABS: HEMOGLOBIN 9.3 g/dl (13.5-17.5); MEAN CORPUSCULAR HEMOGLOBIN 28.5 pg (27.0-33.0); MEAN CORPUSCULAR HGB CONC 32.1 g/dl (32.0-36.5); PLATELET COUNT, AUTOMATED 226 10^3/uL (150-450); RED BLOOD COUNT 3.26 10^6/uL (4.30-6.10)
[2021-04-23 06:28] LABS: BLOOD UREA NITROGEN 19 MG/DL (7-18); CALCIUM LEVEL 8.6 MG/DL (8.8-10.2); CARBON DIOXIDE LEVEL 25 MEQ/L (21-32); CHLORIDE LEVEL 113 MEQ/L (98-107); CREATININE FOR GFR 0.87 MG/DL (0.70-1.30); GLOMERULAR FILTRATION RATE > 60.0 (>35); GLUCOSE, FASTING 99 MG/DL (70-100); SODIUM LEVEL 145 MEQ/L (136-145)
[2021-04-23 08:00] VITALS: BP 139/63
[2021-04-23] MEDS: AMIODARONE 200 MG TAB (PACERONE) PO SCH (08:53)
[2021-04-23] MEDS: DOCUSATE SODIUM 100MG CAPSULE PO SCH ×2 (08:53→20:20)
[2021-04-23] MEDS: guaiFENesin ER 600 MG TAB PO SCH ×2 (08:53→20:21)
[2021-04-23] MEDS: ATORVASTATIN 20 MG TAB PO SCH (08:53)
[2021-04-23] MEDS: APIXABAN 2.5 MG TAB (ELIQUIS) PO SCH ×2 (08:53→20:20)
[2021-04-23] MEDS: PANTOPRAZOLE 40MG TAB (PROTONIX) PO SCH (08:53)
[2021-04-23] MEDS: FINASTERIDE 5 MG TAB PO SCH (08:53)
[2021-04-23] MEDS: ASPIRIN 81MG ENTERIC TABLET PO SCH (08:53)
[2021-04-23] MEDS: TAMSULOSIN 0.4 MG CAP PO SCH (08:53)
[2021-04-23] MEDS: FERROUS GLUCONATE 324 MG TAB PO SCH (08:54)
[2021-04-23] MEDS: PREGABALIN 75 MG CAP(LYRICA) PO SCH (20:20)
[2021-04-24] MEDS: LEVOTHYROXINE 112MCG TABLET (0.112MG) PO SCH (05:42)
[2021-04-24 06:00] VITALS: BP 130/59
[2021-04-24 06:20] LABS: HEMOGLOBIN 9.1 g/dl (13.5-17.5); MEAN CORPUSCULAR HEMOGLOBIN 28.3 pg (27.0-33.0); MEAN CORPUSCULAR HGB CONC 31.4 g/dl (32.0-36.5); MEAN CORPUSCULAR VOLUME 90.3 fl (80.0-96.0); PLATELET COUNT, AUTOMATED 219 10^3/uL (150-450); RED BLOOD COUNT 3.21 10^6/uL (4.30-6.10); WHITE BLOOD COUNT 6.8 10^3/uL (4.0-10.0)
[2021-04-24 06:45] LABS: BLOOD UREA NITROGEN 18 MG/DL (7-18); CALCIUM LEVEL 8.3 MG/DL (8.8-10.2); CARBON DIOXIDE LEVEL 27 MEQ/L (21-32); CHLORIDE LEVEL 111 MEQ/L (98-107); CREATININE FOR GFR 0.85 MG/DL (0.70-1.30); GLOMERULAR FILTRATION RATE > 60.0 (>35); GLUCOSE, FASTING 104 MG/DL (70-100); MAGNESIUM LEVEL 2.1 MG/DL (1.8-2.4); SODIUM LEVEL 145 MEQ/L (136-145)
[2021-04-24] MEDS: AMIODARONE 200 MG TAB (PACERONE) PO SCH (10:15)
[2021-04-24] MEDS: APIXABAN 2.5 MG TAB (ELIQUIS) PO SCH ×2 (10:15→20:53)
[2021-04-24] MEDS: ATORVASTATIN 20 MG TAB PO SCH (10:15)
[2021-04-24] MEDS: FINASTERIDE 5 MG TAB PO SCH (10:15)
[2021-04-24] MEDS: ASPIRIN 81MG ENTERIC TABLET PO SCH (10:15)
[2021-04-24] MEDS: guaiFENesin ER 600 MG TAB PO SCH ×2 (10:15→20:53)
[2021-04-24] MEDS: PANTOPRAZOLE 40MG TAB (PROTONIX) PO SCH (10:15)
[2021-04-24] MEDS: FERROUS GLUCONATE 324 MG TAB PO SCH (10:15)
[2021-04-24] MEDS: TAMSULOSIN 0.4 MG CAP PO SCH (10:15)
[2021-04-24] MEDS: DOCUSATE SODIUM 100MG CAPSULE PO SCH ×2 (10:16→20:53)
[2021-04-24] MEDS: PREGABALIN 75 MG CAP(LYRICA) PO SCH (20:53)
[2021-04-25 06:00] VITALS: BP 136/72
[2021-04-25] MEDS: LEVOTHYROXINE 112MCG TABLET (0.112MG) PO SCH (06:04)
[2021-04-25 07:44] LABS: HEMATOCRIT 30.3 % (42.0-52.0); HEMOGLOBIN 9.6 g/dl (13.5-17.5); MEAN CORPUSCULAR HEMOGLOBIN 28.3 pg (27.0-33.0); MEAN CORPUSCULAR HGB CONC 31.7 g/dl (32.0-36.5); MEAN CORPUSCULAR VOLUME 89.4 fl (80.0-96.0); PLATELET COUNT, AUTOMATED 237 10^3/uL (150-450); RED BLOOD COUNT 3.39 10^6/uL (4.30-6.10); WHITE BLOOD COUNT 7.1 10^3/uL (4.0-10.0)
[2021-04-25 08:00] LABS: BLOOD UREA NITROGEN 18 MG/DL (7-18); CALCIUM LEVEL 8.9 MG/DL (8.8-10.2); CARBON DIOXIDE LEVEL 24 MEQ/L (21-32); CHLORIDE LEVEL 111 MEQ/L (98-107); GLOMERULAR FILTRATION RATE > 60.0 (>35); GLUCOSE, FASTING 114 MG/DL (70-100); POTASSIUM SERUM 3.9 MEQ/L (3.5-5.1); SODIUM LEVEL 142 MEQ/L (136-145)
[2021-04-25] MEDS: DOCUSATE SODIUM 100MG CAPSULE PO SCH ×2 (08:33→20:55)
[2021-04-25] MEDS: ASPIRIN 81MG ENTERIC TABLET PO SCH (08:33)
[2021-04-25] MEDS: TAMSULOSIN 0.4 MG CAP PO SCH (08:33)
[2021-04-25] MEDS: guaiFENesin ER 600 MG TAB PO SCH ×2 (08:33→20:55)
[2021-04-25] MEDS: FINASTERIDE 5 MG TAB PO SCH (08:33)
[2021-04-25] MEDS: APIXABAN 2.5 MG TAB (ELIQUIS) PO SCH (08:33)
[2021-04-25] MEDS: ATORVASTATIN 20 MG TAB PO SCH (08:33)
[2021-04-25] MEDS: FERROUS GLUCONATE 324 MG TAB PO SCH (08:33)
[2021-04-25] MEDS: AMIODARONE 200 MG TAB (PACERONE) PO SCH (08:33)
[2021-04-25] MEDS: PANTOPRAZOLE 40MG TAB (PROTONIX) PO SCH (08:33)
[2021-04-25] MEDS ORDERED: LIDOCAINE 2% JELLY 6 ML SYRINGE TOP ONE (14:30)
[2021-04-25] MEDS ORDERED: LIDOCAINE 2% JELLY 5ML TUBE TOP ONE (14:35)
[2021-04-25] MEDS: PREGABALIN 75 MG CAP(LYRICA) PO SCH (20:55)
[2021-04-26] MEDS: LEVOTHYROXINE 112MCG TABLET (0.112MG) PO SCH (05:37)
[2021-04-26 06:00] VITALS: BP 132/68
[2021-04-26 08:44] LABS: HEMATOCRIT 27.9 % (42.0-52.0); HEMOGLOBIN 8.8 g/dl (13.5-17.5); MEAN CORPUSCULAR HEMOGLOBIN 28.1 pg (27.0-33.0); MEAN CORPUSCULAR HGB CONC 31.5 g/dl (32.0-36.5); MEAN CORPUSCULAR VOLUME 89.1 fl (80.0-96.0); PLATELET COUNT, AUTOMATED 230 10^3/uL (150-450); RED BLOOD COUNT 3.13 10^6/uL (4.30-6.10); WHITE BLOOD COUNT 6.9 10^3/uL (4.0-10.0)
[2021-04-26 09:10] LABS: BLOOD UREA NITROGEN 18 MG/DL (7-18); CALCIUM LEVEL 8.8 MG/DL (8.8-10.2); CARBON DIOXIDE LEVEL 26 MEQ/L (21-32); CHLORIDE LEVEL 111 MEQ/L (98-107); CREATININE FOR GFR 0.89 MG/DL (0.70-1.30); GLOMERULAR FILTRATION RATE > 60.0 (>35); GLUCOSE, FASTING 94 MG/DL (70-100); SODIUM LEVEL 145 MEQ/L (136-145)
[2021-04-26] MEDS: guaiFENesin ER 600 MG TAB PO SCH ×2 (10:08→20:14)
[2021-04-26] MEDS: AMIODARONE 200 MG TAB (PACERONE) PO SCH (10:08)
[2021-04-26] MEDS: DOCUSATE SODIUM 100MG CAPSULE PO SCH ×2 (10:08→20:13)
[2021-04-26] MEDS: FERROUS GLUCONATE 324 MG TAB PO SCH (10:08)
[2021-04-26] MEDS: PANTOPRAZOLE 40MG TAB (PROTONIX) PO SCH (10:08)
[2021-04-26] MEDS: FINASTERIDE 5 MG TAB PO SCH (10:08)
[2021-04-26] MEDS: ATORVASTATIN 20 MG TAB PO SCH (10:08)
[2021-04-26] MEDS: TAMSULOSIN 0.4 MG CAP PO SCH (10:08)
[2021-04-26] MEDS: ASPIRIN 81MG ENTERIC TABLET PO SCH (10:09)
[2021-04-26] MEDS: PREGABALIN 75 MG CAP(LYRICA) PO SCH (20:13)
[2021-04-27] MEDS: LEVOTHYROXINE 112MCG TABLET (0.112MG) PO SCH (06:27)
[2021-04-27 07:10] LABS: HEMATOCRIT 27.4 % (42.0-52.0); HEMOGLOBIN 8.5 g/dl (13.5-17.5); MEAN CORPUSCULAR HEMOGLOBIN 27.8 pg (27.0-33.0); MEAN CORPUSCULAR VOLUME 89.5 fl (80.0-96.0); PLATELET COUNT, AUTOMATED 235 10^3/uL (150-450); RED BLOOD COUNT 3.06 10^6/uL (4.30-6.10)
[2021-04-27 07:31] LABS: BLOOD UREA NITROGEN 18 MG/DL (7-18); CALCIUM LEVEL 8.5 MG/DL (8.8-10.2); CARBON DIOXIDE LEVEL 27 MEQ/L (21-32); CHLORIDE LEVEL 110 MEQ/L (98-107); CREATININE FOR GFR 0.98 MG/DL (0.70-1.30); GLOMERULAR FILTRATION RATE > 60.0 (>35); GLUCOSE, FASTING 94 MG/DL (70-100); MAGNESIUM LEVEL 2.1 MG/DL (1.8-2.4); POTASSIUM SERUM 3.9 MEQ/L (3.5-5.1); SODIUM LEVEL 142 MEQ/L (136-145)
[2021-04-27] MEDS: AMIODARONE 200 MG TAB (PACERONE) PO SCH (09:03)
[2021-04-27] MEDS: guaiFENesin ER 600 MG TAB PO SCH ×2 (09:03→21:23)
[2021-04-27] MEDS: TAMSULOSIN 0.4 MG CAP PO SCH (09:03)
[2021-04-27] MEDS: ASPIRIN 81MG ENTERIC TABLET PO SCH (09:03)
[2021-04-27] MEDS: DOCUSATE SODIUM 100MG CAPSULE PO SCH ×2 (09:03→21:23)
[2021-04-27] MEDS: ATORVASTATIN 20 MG TAB PO SCH (09:03)
[2021-04-27] MEDS: FERROUS GLUCONATE 324 MG TAB PO SCH (09:03)
[2021-04-27] MEDS: FINASTERIDE 5 MG TAB PO SCH (09:03)
[2021-04-27] MEDS: PANTOPRAZOLE 40MG TAB (PROTONIX) PO SCH (09:03)
[2021-04-27 21:00] VITALS: BP 134/68
[2021-04-27] MEDS: PREGABALIN 75 MG CAP(LYRICA) PO SCH (21:23)
[2021-04-28 06:06] LABS: HEMATOCRIT 26.7 % (42.0-52.0); HEMOGLOBIN 8.6 g/dl (13.5-17.5); MEAN CORPUSCULAR HGB CONC 32.2 g/dl (32.0-36.5); MEAN CORPUSCULAR VOLUME 89.9 fl (80.0-96.0); PLATELET COUNT, AUTOMATED 242 10^3/uL (150-450); RED BLOOD COUNT 2.97 10^6/uL (4.30-6.10); WHITE BLOOD COUNT 6.7 10^3/uL (4.0-10.0)
[2021-04-28] MEDS: LEVOTHYROXINE 112MCG TABLET (0.112MG) PO SCH (06:27)
[2021-04-28 06:32] LABS: BLOOD UREA NITROGEN 17 MG/DL (7-18); CALCIUM LEVEL 8.5 MG/DL (8.8-10.2); CARBON DIOXIDE LEVEL 26 MEQ/L (21-32); CHLORIDE LEVEL 111 MEQ/L (98-107); CREATININE FOR GFR 0.97 MG/DL (0.70-1.30); GLOMERULAR FILTRATION RATE > 60.0 (>35); GLUCOSE, FASTING 79 MG/DL (70-100); POTASSIUM SERUM 4.1 MEQ/L (3.5-5.1); SODIUM LEVEL 142 MEQ/L (136-145)
[2021-04-28 07:01] VITALS: BP 133/47
[2021-04-28] MEDS: ATORVASTATIN 20 MG TAB PO SCH (09:10)
[2021-04-28] MEDS: guaiFENesin ER 600 MG TAB PO SCH ×2 (09:10→21:26)
[2021-04-28] MEDS: FINASTERIDE 5 MG TAB PO SCH (09:10)
[2021-04-28] MEDS: TAMSULOSIN 0.4 MG CAP PO SCH (09:10)
[2021-04-28] MEDS: ASPIRIN 81MG ENTERIC TABLET PO SCH (09:10)
[2021-04-28] MEDS: AMIODARONE 200 MG TAB (PACERONE) PO SCH (09:10)
[2021-04-28] MEDS: DOCUSATE SODIUM 100MG CAPSULE PO SCH ×2 (09:10→21:26)
[2021-04-28] MEDS: FERROUS GLUCONATE 324 MG TAB PO SCH (09:10)
[2021-04-28] MEDS: PANTOPRAZOLE 40MG TAB (PROTONIX) PO SCH (09:10)
[2021-04-28] MEDS: PREGABALIN 75 MG CAP(LYRICA) PO SCH (21:26)
[2021-04-28 22:00] VITALS: BP 131/46
[2021-04-29] MEDS: LEVOTHYROXINE 112MCG TABLET (0.112MG) PO SCH (05:52)
[2021-04-29 06:22] LABS: HEMATOCRIT 28.1 % (42.0-52.0); HEMOGLOBIN 8.8 g/dl (13.5-17.5); MEAN CORPUSCULAR HEMOGLOBIN 28.2 pg (27.0-33.0); MEAN CORPUSCULAR HGB CONC 31.3 g/dl (32.0-36.5); MEAN CORPUSCULAR VOLUME 90.1 fl (80.0-96.0); PLATELET COUNT, AUTOMATED 259 10^3/uL (150-450); RED BLOOD COUNT 3.12 10^6/uL (4.30-6.10); WHITE BLOOD COUNT 8.1 10^3/uL (4.0-10.0)
[2021-04-29 06:33] VITALS: BP 133/46
[2021-04-29 06:44] LABS: BLOOD UREA NITROGEN 19 MG/DL (7-18); CALCIUM LEVEL 8.7 MG/DL (8.8-10.2); CARBON DIOXIDE LEVEL 26 MEQ/L (21-32); CHLORIDE LEVEL 110 MEQ/L (98-107); GLOMERULAR FILTRATION RATE > 60.0 (>35); GLUCOSE, FASTING 86 MG/DL (70-100); POTASSIUM SERUM 4.1 MEQ/L (3.5-5.1); SODIUM LEVEL 142 MEQ/L (136-145)
[2021-04-29] MEDS: PANTOPRAZOLE 40MG TAB (PROTONIX) PO SCH (09:52)
[2021-04-29] MEDS: ASPIRIN 81MG ENTERIC TABLET PO SCH (09:52)
[2021-04-29] MEDS: ATORVASTATIN 20 MG TAB PO SCH (09:53)
[2021-04-29] MEDS: FINASTERIDE 5 MG TAB PO SCH (09:53)
[2021-04-29] MEDS: TAMSULOSIN 0.4 MG CAP PO SCH (09:53)
[2021-04-29] MEDS: guaiFENesin ER 600 MG TAB PO SCH ×2 (09:53→20:35)
[2021-04-29] MEDS: DOCUSATE SODIUM 100MG CAPSULE PO SCH ×2 (09:53→20:35)
[2021-04-29] MEDS: FERROUS GLUCONATE 324 MG TAB PO SCH (09:53)
[2021-04-29] MEDS: AMIODARONE 200 MG TAB (PACERONE) PO SCH (09:53)
[2021-04-29] MEDS: APIXABAN 2.5 MG TAB (ELIQUIS) PO SCH (20:35)
[2021-04-29] MEDS: PREGABALIN 75 MG CAP(LYRICA) PO SCH (20:35)
[2021-04-30] MEDS: LEVOTHYROXINE 112MCG TABLET (0.112MG) PO SCH (05:18)
[2021-04-30 06:00] VITALS: BP 125/51
[2021-04-30] MEDS: ATORVASTATIN 20 MG TAB PO SCH (09:18)
[2021-04-30] MEDS: FERROUS GLUCONATE 324 MG TAB PO SCH (09:18)
[2021-04-30] MEDS: guaiFENesin ER 600 MG TAB PO SCH ×2 (09:18→20:48)
[2021-04-30] MEDS: PANTOPRAZOLE 40MG TAB (PROTONIX) PO SCH (09:19)
[2021-04-30] MEDS: AMIODARONE 200 MG TAB (PACERONE) PO SCH (09:19)
[2021-04-30] MEDS: FINASTERIDE 5 MG TAB PO SCH (09:19)
[2021-04-30] MEDS: TAMSULOSIN 0.4 MG CAP PO SCH (09:19)
[2021-04-30] MEDS: DOCUSATE SODIUM 100MG CAPSULE PO SCH ×2 (09:19→20:48)
[2021-04-30] MEDS: ASPIRIN 81MG ENTERIC TABLET PO SCH (09:19)
[2021-04-30] MEDS: APIXABAN 2.5 MG TAB (ELIQUIS) PO SCH ×2 (09:19→20:48)
[2021-04-30] MEDS: PREGABALIN 75 MG CAP(LYRICA) PO SCH (20:48)
[2021-05-01] MEDS: LEVOTHYROXINE 112MCG TABLET (0.112MG) PO SCH (05:51)
[2021-05-01 06:00] VITALS: BP 123/52
[2021-05-01] MEDS: FINASTERIDE 5 MG TAB PO SCH (10:02)
[2021-05-01] MEDS: AMIODARONE 200 MG TAB (PACERONE) PO SCH (10:02)
[2021-05-01] MEDS: guaiFENesin ER 600 MG TAB PO SCH ×2 (10:02→21:23)
[2021-05-01] MEDS: APIXABAN 2.5 MG TAB (ELIQUIS) PO SCH ×2 (10:02→21:22)
[2021-05-01] MEDS: ASPIRIN 81MG ENTERIC TABLET PO SCH (10:02)
[2021-05-01] MEDS: PANTOPRAZOLE 40MG TAB (PROTONIX) PO SCH (10:02)
[2021-05-01] MEDS: DOCUSATE SODIUM 100MG CAPSULE PO SCH ×2 (10:02→21:22)
[2021-05-01] MEDS: FERROUS GLUCONATE 324 MG TAB PO SCH (10:02)
[2021-05-01] MEDS: ATORVASTATIN 20 MG TAB PO SCH (10:03)
[2021-05-01] MEDS: TAMSULOSIN 0.4 MG CAP PO SCH (10:03)
[2021-05-01] MEDS: PREGABALIN 75 MG CAP(LYRICA) PO SCH (21:23)
[2021-05-02] MEDS: LEVOTHYROXINE 112MCG TABLET (0.112MG) PO SCH (05:26)
[2021-05-02 05:46] VITALS: BP 114/49
[2021-05-02] MEDS: FINASTERIDE 5 MG TAB PO SCH (08:14)
[2021-05-02] MEDS: guaiFENesin ER 600 MG TAB PO SCH (08:14)
[2021-05-02] MEDS: ASPIRIN 81MG ENTERIC TABLET PO SCH (08:14)
[2021-05-02] MEDS: ATORVASTATIN 20 MG TAB PO SCH (08:14)
[2021-05-02] MEDS: AMIODARONE 200 MG TAB (PACERONE) PO SCH (08:14)
[2021-05-02] MEDS: PANTOPRAZOLE 40MG TAB (PROTONIX) PO SCH (08:14)
[2021-05-02] MEDS: DOCUSATE SODIUM 100MG CAPSULE PO SCH (08:14)
[2021-05-02] MEDS: TAMSULOSIN 0.4 MG CAP PO SCH (08:14)
[2021-05-02] MEDS: APIXABAN 2.5 MG TAB (ELIQUIS) PO SCH (08:15)
[2021-05-02] MEDS: FERROUS GLUCONATE 324 MG TAB PO SCH (08:15)
== END 2021-05-02 14:42 | disposition home health service (06) | DRG 178 ==
LOC: EDBD 02:34 → M ED 02:34 → M ED INP 04:52 → ENRESERV 16:05 → M PCU 17:28 → M MSPAV 04-23 16:45
PROVIDERS: ADMIT Family Medicine; ATTEND Internal Medicine
PROC: 0W993ZZ Drainage of Right Pleural Cavity, Percutaneous Approach (ICD-10-PCS; principal; 2021-04-15 09:15)
PROC: 0W9930Z Drainage of Right Pleural Cavity with Drainage Device, Percutaneous Approach (ICD-10-PCS; 2021-04-16)
DX: J69.0 Pneumonitis due to inhalation of food and vomit (principal); I50.32 Chronic diastolic (congestive) heart failure; N17.9 Acute kidney failure, unspecified; I13.0 Hypertensive heart and chronic kidney disease with heart failure and stage 1 through stage 4 chronic kidney disease, or unspecified chronic kidney disease; J95.811 Postprocedural pneumothorax; J90 Pleural effusion, not elsewhere classified; J95.812 Postprocedural air leak; I25.10 Atherosclerotic heart disease of native coronary artery without angina pectoris; Z95.5 Presence of coronary angioplasty implant and graft; I48.91 Unspecified atrial fibrillation; Z79.01 Long term (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 anticoagulants; 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 cardiac pacemaker; Z85.51 Personal history of malignant neoplasm of bladder; M48.00 Spinal stenosis, site unspecified; E03.9 Hypothyroidism, unspecified; N40.0 Benign prostatic hyperplasia without lower urinary tract symptoms; Z90.49 Acquired absence of other specified parts of digestive tract; Z98.41 Cataract extraction status, right eye; Z98.42 Cataract extraction status, left eye; Z87.891 Personal history of nicotine dependence; K21.9 Gastro-esophageal reflux disease without esophagitis; Z79.899 Other long term (current) drug therapy; Z20.822 Contact with and (suspected) exposure to COVID-19; N18.30 Chronic kidney disease, stage 3 unspecified; D64.9 Anemia, unspecified; E78.5 Hyperlipidemia, unspecified

== ENCOUNTER 2021-05-08 15:09 | Inpatient (IN) | payer MEDICARE ==
[~2021-05-08] VITALS: Ht 182.9 cm; Wt 88.5 kg
[~2021-05-08 15:09] MED LIST changes: +FLUTISP; +POLY17PO18 PO; +SENN-83 PO
[2021-05-08 16:39] LABS: BASO % 0.2 % (0.0-1.0); EOS % 0.1 % (0.0-3.0); HEMATOCRIT 30.4 % (42.0-52.0); HEMOGLOBIN 9.4 g/dl (13.5-17.5); LYMPH # 0.3 10^3/uL (1.5-5.0); LYMPH % 1.9 % (24.0-44.0); MEAN CORPUSCULAR HEMOGLOBIN 28.1 pg (27.0-33.0); MEAN CORPUSCULAR HGB CONC 30.9 g/dl (32.0-36.5); MEAN CORPUSCULAR VOLUME 90.7 fl (80.0-96.0); MONO # 0.7 10^3/uL (0.0-0.8); MONO % 4.3 % (2.0-8.0); NEUTROPHILS # 14.4 10^3/uL (1.5-8.5); NEUTROPHILS % 92.9 % (36.0-66.0); PLATELET COUNT, AUTOMATED 216 10^3/uL (150-450); RED BLOOD COUNT 3.35 10^6/uL (4.30-6.10); WHITE BLOOD COUNT 15.4 10^3/uL (4.0-10.0)
[2021-05-08 17:09] LABS: ALBUMIN 2.5 GM/DL (3.2-5.2); BILIRUBIN,DIRECT 0.2 MG/DL (0.0-0.2); BILIRUBIN,TOTAL 0.4 MG/DL (0.2-1.0); CALCIUM LEVEL 8.6 MG/DL (8.8-10.2); CREATININE FOR GFR 1.39 MG/DL (0.70-1.30); GLOMERULAR FILTRATION RATE 51.3 (>35); POTASSIUM SERUM 5.1 MEQ/L (3.5-5.1); TOTAL PROTEIN 7.2 GM/DL (6.4-8.2)
[2021-05-08] MEDS ORDERED: VANCOMYCIN HCL 1,750 MG in IV FLUID PLACE HOLDER 1 EA IV ONE (17:40)
[2021-05-08] MEDS ORDERED: cefTRIAXone SOD 1 GM in D5W MINI-BAG PLUS 50 ML IV ONE (17:40)
[2021-05-08] MEDS ORDERED: AZITHROMYCIN INJ 500 MG, VIAL MATE ADAPTER 1 EACH in NS 250 ML IV ONE (17:40)
[2021-05-08] MEDS ORDERED: ACETAMINOPHEN TAB 650MG DOSE (2X325MG) PO PRN (18:25)
[2021-05-08] MEDS ORDERED: MOM 30ML SUSPENSION UDC PO PRN (18:25)
[2021-05-08] MEDS ORDERED: MAALOX 30 ML SUSP *UDC PO PRN (18:25)
[2021-05-08] MEDS ORDERED: VANCOMYCIN HCL 1,000 MG, VIAL MATE ADAPTER 1 EACH in NS 250 ML IV ONE (18:30)
[2021-05-08] MEDS ORDERED: NS 1,000 ML IV SCH (18:45)
[2021-05-08 19:23] LABS: FREE T4 1.44 NG/DL (0.76-1.46); THYROID STIMULATING HORMONE 12.1 uIU/ML (0.358-3.740)
[2021-05-08] MEDS ORDERED: VANCOMYCIN HCL 750 MG, VIAL MATE ADAPTER 1 EACH in NS 250 ML IV ONE (19:30)
[2021-05-08] MEDS ORDERED: FISH1000 PO (22:34)
[2021-05-08] MEDS ORDERED: MIRA1POW3 PO (22:34)
[2021-05-08] MEDS ORDERED: ALBU83IN INH (22:34)
[2021-05-08] MEDS ORDERED: HOME MED LIST COMPLETE! XX SCH (22:40)
[2021-05-09] MEDS: APIXABAN 2.5 MG TAB (ELIQUIS) PO SCH ×3 (01:55→21:22)
[2021-05-09 03:00] VITALS: BP 121/59
[2021-05-09] MEDS: DOCUSATE SODIUM 100MG CAPSULE PO SCH ×3 (03:29→21:22)
[2021-05-09] MEDS: PIPERACILLIN/TAZOBACTAM SOD 3.375 GM in D5W MINI-BAG PLUS 50 ML IV SCH ×5 (03:30→23:50)
[2021-05-09 04:00] VITALS: BP 124/56
[2021-05-09 05:39] LABS: BASO % 0.4 % (0.0-1.0); EOS # 0.2 10^3/uL (0.0-0.5); EOS % 1.5 % (0.0-3.0); HEMATOCRIT 27.5 % (42.0-52.0); HEMOGLOBIN 8.5 g/dl (13.5-17.5); LYMPH % 8.7 % (24.0-44.0); MEAN CORPUSCULAR HGB CONC 30.9 g/dl (32.0-36.5); MEAN CORPUSCULAR VOLUME 90.5 fl (80.0-96.0); MONO # 0.7 10^3/uL (0.0-0.8); MONO % 5.9 % (2.0-8.0); NEUTROPHILS # 9.2 10^3/uL (1.5-8.5); NEUTROPHILS % 83.1 % (36.0-66.0); PLATELET COUNT, AUTOMATED 182 10^3/uL (150-450); RED BLOOD COUNT 3.04 10^6/uL (4.30-6.10); WHITE BLOOD COUNT 11.1 10^3/uL (4.0-10.0)
[2021-05-09 06:13] LABS: ALBUMIN 2.2 GM/DL (3.2-5.2); ALT/SGPT 17 U/L (12-78); BILIRUBIN,TOTAL 0.7 MG/DL (0.2-1.0); BLOOD UREA NITROGEN 24 MG/DL (7-18); CALCIUM LEVEL 8.5 MG/DL (8.8-10.2); CARBON DIOXIDE LEVEL 31 MEQ/L (21-32); CHLORIDE LEVEL 105 MEQ/L (98-107); CREATININE FOR GFR 1.21 MG/DL (0.70-1.30); GLOMERULAR FILTRATION RATE > 60.0 (>35); GLUCOSE, FASTING 92 MG/DL (70-100); MAGNESIUM LEVEL 1.9 MG/DL (1.8-2.4); SODIUM LEVEL 141 MEQ/L (136-145); TOTAL PROTEIN 6.9 GM/DL (6.4-8.2)
[2021-05-09 08:02] VITALS: BP 102/51
[2021-05-09 11:41] VITALS: BP 120/53
[2021-05-09 16:00] VITALS: BP 132/60
[2021-05-09 20:00] VITALS: BP 127/60
[2021-05-10] VITALS: BP 137/65
[2021-05-10 04:00] VITALS: BP 129/58
[2021-05-10] MEDS: PIPERACILLIN/TAZOBACTAM SOD 3.375 GM in D5W MINI-BAG PLUS 50 ML IV SCH ×4 (06:11→23:26)
[2021-05-10 06:17] LABS: BASO % 0.2 % (0.0-1.0); EOS # 0.3 10^3/uL (0.0-0.5); HEMATOCRIT 26.6 % (42.0-52.0); HEMOGLOBIN 8.4 g/dl (13.5-17.5); LYMPH # 0.8 10^3/uL (1.5-5.0); LYMPH % 9.8 % (24.0-44.0); MEAN CORPUSCULAR HEMOGLOBIN 28.4 pg (27.0-33.0); MEAN CORPUSCULAR HGB CONC 31.6 g/dl (32.0-36.5); MEAN CORPUSCULAR VOLUME 89.9 fl (80.0-96.0); MONO # 0.5 10^3/uL (0.0-0.8); NEUTROPHILS # 6.5 10^3/uL (1.5-8.5); NEUTROPHILS % 79.6 % (36.0-66.0); PLATELET COUNT, AUTOMATED 190 10^3/uL (150-450); RED BLOOD COUNT 2.96 10^6/uL (4.30-6.10); WHITE BLOOD COUNT 8.2 10^3/uL (4.0-10.0)
[2021-05-10 06:43] LABS: ALT/SGPT 21 U/L (12-78); BILIRUBIN,TOTAL 0.6 MG/DL (0.2-1.0); BLOOD UREA NITROGEN 23 MG/DL (7-18); CALCIUM LEVEL 8.6 MG/DL (8.8-10.2); CARBON DIOXIDE LEVEL 29 MEQ/L (21-32); CHLORIDE LEVEL 105 MEQ/L (98-107); CREATININE FOR GFR 1.15 MG/DL (0.70-1.30); GLOMERULAR FILTRATION RATE > 60.0 (>35); GLUCOSE, FASTING 92 MG/DL (70-100); MAGNESIUM LEVEL 2.1 MG/DL (1.8-2.4); POTASSIUM SERUM 3.9 MEQ/L (3.5-5.1); SODIUM LEVEL 138 MEQ/L (136-145); TOTAL PROTEIN 6.6 GM/DL (6.4-8.2)
[2021-05-10 07:28] VITALS: BP_SYST 113; BP_SYST 117; BP_SYST 124; BP_DIAS 53; BP_DIAS 54; BP_DIAS 60
[2021-05-10] MEDS: APIXABAN 2.5 MG TAB (ELIQUIS) PO SCH ×2 (08:53→20:12)
[2021-05-10] MEDS: DOCUSATE SODIUM 100MG CAPSULE PO SCH ×2 (08:53→20:12)
[2021-05-10 12:37] VITALS: BP 125/58
[2021-05-10 16:30] VITALS: BP 128/68
[2021-05-10 20:03] VITALS: BP 110/53
[2021-05-11 00:50] VITALS: BP 116/57
[2021-05-11 04:00] VITALS: BP 128/62
[2021-05-11] MEDS: PIPERACILLIN/TAZOBACTAM SOD 3.375 GM in D5W MINI-BAG PLUS 50 ML IV SCH (05:04)
[2021-05-11 05:30] LABS: BASO % 0.4 % (0.0-1.0); EOS # 0.5 10^3/uL (0.0-0.5); EOS % 6.3 % (0.0-3.0); HEMATOCRIT 25.5 % (42.0-52.0); HEMOGLOBIN 8.2 g/dl (13.5-17.5); LYMPH # 1.1 10^3/uL (1.5-5.0); LYMPH % 14.9 % (24.0-44.0); MEAN CORPUSCULAR HEMOGLOBIN 28.6 pg (27.0-33.0); MEAN CORPUSCULAR HGB CONC 32.2 g/dl (32.0-36.5); MEAN CORPUSCULAR VOLUME 88.9 fl (80.0-96.0); MONO # 0.5 10^3/uL (0.0-0.8); MONO % 6.3 % (2.0-8.0); NEUTROPHILS # 5.1 10^3/uL (1.5-8.5); NEUTROPHILS % 71.8 % (36.0-66.0); PLATELET COUNT, AUTOMATED 197 10^3/uL (150-450); RED BLOOD COUNT 2.87 10^6/uL (4.30-6.10); WHITE BLOOD COUNT 7.2 10^3/uL (4.0-10.0)
[2021-05-11 05:54] LABS: ALBUMIN 1.9 GM/DL (3.2-5.2); ALT/SGPT 18 U/L (12-78); BILIRUBIN,TOTAL 0.6 MG/DL (0.2-1.0); BLOOD UREA NITROGEN 20 MG/DL (7-18); CALCIUM LEVEL 8.3 MG/DL (8.8-10.2); CARBON DIOXIDE LEVEL 27 MEQ/L (21-32); CHLORIDE LEVEL 106 MEQ/L (98-107); CREATININE FOR GFR 1.08 MG/DL (0.70-1.30); GLOMERULAR FILTRATION RATE > 60.0 (>35); GLUCOSE, FASTING 91 MG/DL (70-100); MAGNESIUM LEVEL 2.1 MG/DL (1.8-2.4); POTASSIUM SERUM 3.9 MEQ/L (3.5-5.1); SODIUM LEVEL 141 MEQ/L (136-145); TOTAL PROTEIN 6.7 GM/DL (6.4-8.2)
[2021-05-11] MEDS: LEVOTHYROXINE 112MCG TABLET (0.112MG) PO SCH (06:00)
[2021-05-11 07:47] VITALS: BP 139/63
[2021-05-11] MEDS: APIXABAN 2.5 MG TAB (ELIQUIS) PO SCH ×2 (09:47→21:20)
[2021-05-11] MEDS: DOCUSATE SODIUM 100MG CAPSULE PO SCH ×2 (09:47→21:20)
[2021-05-11] MEDS ORDERED: MIRALAX *UNIT DOSE* 17GM PACKET PO PRN (09:55)
[2021-05-11] MEDS ORDERED: SENNA 8.6 MG TAB (SENOKOT) PO PRN (09:55)
[2021-05-11] MEDS ORDERED: FLUTICASONE PROP 0.05% NASAL SPRAY 16 GM (FLONASE) PRN (09:55)
[2021-05-11] MEDS: ATORVASTATIN 20 MG TAB PO SCH (12:09)
[2021-05-11] MEDS: ASPIRIN 81MG ENTERIC TABLET PO SCH (12:09)
[2021-05-11] MEDS: TAMSULOSIN 0.4 MG CAP PO SCH (12:09)
[2021-05-11] MEDS: MULTIVITAMINS/MINERALS THERAP 1 TAB PO SCH (12:09)
[2021-05-11] MEDS: FERROUS GLUCONATE 324 MG TAB PO SCH (12:09)
[2021-05-11] MEDS: PANTOPRAZOLE 40MG TAB (PROTONIX) PO SCH (12:09)
[2021-05-11] MEDS: AMIODARONE 200 MG TAB (PACERONE) PO SCH (12:09)
[2021-05-11] MEDS: AUGMENTIN 875 MG TAB PO SCH ×2 (14:45→21:20)
[2021-05-11 20:00] VITALS: BP 141/65
[2021-05-11] MEDS: PREGABALIN 75 MG CAP(LYRICA) PO SCH (21:20)
[2021-05-12 04:47] LABS: BASO % 0.5 % (0.0-1.0); EOS # 0.5 10^3/uL (0.0-0.5); HEMATOCRIT 26.3 % (42.0-52.0); HEMOGLOBIN 8.1 g/dl (13.5-17.5); LYMPH % 17.9 % (24.0-44.0); MEAN CORPUSCULAR HEMOGLOBIN 27.6 pg (27.0-33.0); MEAN CORPUSCULAR HGB CONC 30.8 g/dl (32.0-36.5); MEAN CORPUSCULAR VOLUME 89.5 fl (80.0-96.0); MONO # 0.5 10^3/uL (0.0-0.8); MONO % 9.7 % (2.0-8.0); NEUTROPHILS # 3.5 10^3/uL (1.5-8.5); NEUTROPHILS % 62.7 % (36.0-66.0); PLATELET COUNT, AUTOMATED 182 10^3/uL (150-450); RED BLOOD COUNT 2.94 10^6/uL (4.30-6.10); WHITE BLOOD COUNT 5.5 10^3/uL (4.0-10.0)
[2021-05-12 05:17] LABS: ALT/SGPT 18 U/L (12-78); BILIRUBIN,TOTAL 0.4 MG/DL (0.2-1.0); BLOOD UREA NITROGEN 19 MG/DL (7-18); CALCIUM LEVEL 8.6 MG/DL (8.8-10.2); CARBON DIOXIDE LEVEL 28 MEQ/L (21-32); CHLORIDE LEVEL 108 MEQ/L (98-107); CREATININE FOR GFR 1.03 MG/DL (0.70-1.30); GLOMERULAR FILTRATION RATE > 60.0 (>35); GLUCOSE, FASTING 87 MG/DL (70-100); MAGNESIUM LEVEL 2.3 MG/DL (1.8-2.4); POTASSIUM SERUM 3.9 MEQ/L (3.5-5.1); SODIUM LEVEL 142 MEQ/L (136-145); TOTAL PROTEIN 6.7 GM/DL (6.4-8.2)
[2021-05-12] MEDS: LEVOTHYROXINE 112MCG TABLET (0.112MG) PO SCH (05:56)
[2021-05-12 08:35] VITALS: BP 118/58
[2021-05-12] MEDS: ATORVASTATIN 20 MG TAB PO SCH (09:55)
[2021-05-12] MEDS: APIXABAN 2.5 MG TAB (ELIQUIS) PO SCH ×2 (09:55→22:05)
[2021-05-12] MEDS: DOCUSATE SODIUM 100MG CAPSULE PO SCH ×2 (09:55→22:05)
[2021-05-12] MEDS: PANTOPRAZOLE 40MG TAB (PROTONIX) PO SCH (09:55)
[2021-05-12] MEDS: AUGMENTIN 875 MG TAB PO SCH ×2 (09:55→22:05)
[2021-05-12] MEDS: TAMSULOSIN 0.4 MG CAP PO SCH (09:55)
[2021-05-12] MEDS: ASPIRIN 81MG ENTERIC TABLET PO SCH (09:55)
[2021-05-12] MEDS: MULTIVITAMINS/MINERALS THERAP 1 TAB PO SCH (09:55)
[2021-05-12] MEDS: AMIODARONE 200 MG TAB (PACERONE) PO SCH (09:55)
[2021-05-12] MEDS: FERROUS GLUCONATE 324 MG TAB PO SCH (09:55)
[2021-05-12] MEDS: PREGABALIN 75 MG CAP(LYRICA) PO SCH (22:05)
[2021-05-13] MEDS: LEVOTHYROXINE 112MCG TABLET (0.112MG) PO SCH (05:31)
[2021-05-13 05:58] LABS: BASO % 0.4 % (0.0-1.0); EOS # 0.6 10^3/uL (0.0-0.5); EOS % 10.1 % (0.0-3.0); HEMATOCRIT 25.1 % (42.0-52.0); HEMOGLOBIN 7.9 g/dl (13.5-17.5); LYMPH % 18.4 % (24.0-44.0); MEAN CORPUSCULAR HGB CONC 31.5 g/dl (32.0-36.5); MONO # 0.5 10^3/uL (0.0-0.8); MONO % 9.4 % (2.0-8.0); NEUTROPHILS # 3.5 10^3/uL (1.5-8.5); NEUTROPHILS % 61.3 % (36.0-66.0); PLATELET COUNT, AUTOMATED 179 10^3/uL (150-450); RED BLOOD COUNT 2.82 10^6/uL (4.30-6.10); WHITE BLOOD COUNT 5.7 10^3/uL (4.0-10.0)
[2021-05-13 06:25] LABS: ALBUMIN 2.1 GM/DL (3.2-5.2); ALT/SGPT 17 U/L (12-78); BILIRUBIN,TOTAL 0.3 MG/DL (0.2-1.0); BLOOD UREA NITROGEN 20 MG/DL (7-18); CALCIUM LEVEL 8.6 MG/DL (8.8-10.2); CARBON DIOXIDE LEVEL 28 MEQ/L (21-32); CHLORIDE LEVEL 107 MEQ/L (98-107); CREATININE FOR GFR 1.06 MG/DL (0.70-1.30); GLOMERULAR FILTRATION RATE > 60.0 (>35); GLUCOSE, FASTING 82 MG/DL (70-100); MAGNESIUM LEVEL 2.2 MG/DL (1.8-2.4); POTASSIUM SERUM 3.7 MEQ/L (3.5-5.1); SODIUM LEVEL 141 MEQ/L (136-145); TOTAL PROTEIN 6.7 GM/DL (6.4-8.2)
[2021-05-13 07:42] VITALS: BP 106/56
[2021-05-13] MEDS: APIXABAN 2.5 MG TAB (ELIQUIS) PO SCH ×2 (09:20→21:54)
[2021-05-13] MEDS: AUGMENTIN 875 MG TAB PO SCH ×2 (09:20→21:54)
[2021-05-13] MEDS: FERROUS GLUCONATE 324 MG TAB PO SCH (09:20)
[2021-05-13] MEDS: ASPIRIN 81MG ENTERIC TABLET PO SCH (09:20)
[2021-05-13] MEDS: TAMSULOSIN 0.4 MG CAP PO SCH (09:20)
[2021-05-13] MEDS: ATORVASTATIN 20 MG TAB PO SCH (09:20)
[2021-05-13] MEDS: PANTOPRAZOLE 40MG TAB (PROTONIX) PO SCH (09:20)
[2021-05-13] MEDS: DOCUSATE SODIUM 100MG CAPSULE PO SCH ×2 (09:20→21:54)
[2021-05-13] MEDS: MULTIVITAMINS/MINERALS THERAP 1 TAB PO SCH (09:20)
[2021-05-13] MEDS: AMIODARONE 200 MG TAB (PACERONE) PO SCH (09:20)
[2021-05-13 12:44] VITALS: BP 106/55
[2021-05-13 20:29] VITALS: BP 137/55
[2021-05-13] MEDS: PREGABALIN 75 MG CAP(LYRICA) PO SCH (21:54)
[2021-05-14 05:47] VITALS: BP 136/55
[2021-05-14] MEDS: LEVOTHYROXINE 112MCG TABLET (0.112MG) PO SCH (05:55)
[2021-05-14 06:56] LABS: BASO % 0.5 % (0.0-1.0); EOS # 0.6 10^3/uL (0.0-0.5); HEMATOCRIT 24.8 % (42.0-52.0); HEMOGLOBIN 7.7 g/dl (13.5-17.5); LYMPH # 1.1 10^3/uL (1.5-5.0); LYMPH % 16.6 % (24.0-44.0); MEAN CORPUSCULAR HEMOGLOBIN 28.1 pg (27.0-33.0); MEAN CORPUSCULAR VOLUME 90.5 fl (80.0-96.0); MONO # 0.6 10^3/uL (0.0-0.8); MONO % 9.7 % (2.0-8.0); NEUTROPHILS % 62.7 % (36.0-66.0); PLATELET COUNT, AUTOMATED 194 10^3/uL (150-450); RED BLOOD COUNT 2.74 10^6/uL (4.30-6.10); WHITE BLOOD COUNT 6.3 10^3/uL (4.0-10.0)
[2021-05-14 07:15] LABS: ALT/SGPT 16 U/L (12-78); BILIRUBIN,TOTAL 0.2 MG/DL (0.2-1.0); BLOOD UREA NITROGEN 21 MG/DL (7-18); CALCIUM LEVEL 8.5 MG/DL (8.8-10.2); CARBON DIOXIDE LEVEL 27 MEQ/L (21-32); CHLORIDE LEVEL 109 MEQ/L (98-107); CREATININE FOR GFR 0.99 MG/DL (0.70-1.30); GLOMERULAR FILTRATION RATE > 60.0 (>35); GLUCOSE, FASTING 85 MG/DL (70-100); MAGNESIUM LEVEL 2.3 MG/DL (1.8-2.4); POTASSIUM SERUM 4.2 MEQ/L (3.5-5.1); SODIUM LEVEL 140 MEQ/L (136-145); TOTAL PROTEIN 6.8 GM/DL (6.4-8.2)
[2021-05-14] MEDS: ATORVASTATIN 20 MG TAB PO SCH (09:47)
[2021-05-14] MEDS: FERROUS GLUCONATE 324 MG TAB PO SCH (09:47)
[2021-05-14] MEDS: PANTOPRAZOLE 40MG TAB (PROTONIX) PO SCH (09:47)
[2021-05-14] MEDS: AUGMENTIN 875 MG TAB PO SCH (09:47)
[2021-05-14] MEDS: ASPIRIN 81MG ENTERIC TABLET PO SCH (09:47)
[2021-05-14] MEDS: DOCUSATE SODIUM 100MG CAPSULE PO SCH ×2 (09:47→21:59)
[2021-05-14] MEDS: APIXABAN 2.5 MG TAB (ELIQUIS) PO SCH ×2 (09:47→22:00)
[2021-05-14] MEDS: MULTIVITAMINS/MINERALS THERAP 1 TAB PO SCH (09:47)
[2021-05-14] MEDS: AMIODARONE 200 MG TAB (PACERONE) PO SCH (09:47)
[2021-05-14] MEDS: TAMSULOSIN 0.4 MG CAP PO SCH (09:47)
[2021-05-14] MEDS: PREGABALIN 75 MG CAP(LYRICA) PO SCH (22:00)
[2021-05-15] MEDS: LEVOTHYROXINE 112MCG TABLET (0.112MG) PO SCH (05:25)
[2021-05-15 05:35] VITALS: BP 120/47
[2021-05-15 06:09] LABS: BASO % 0.2 % (0.0-1.0); EOS # 0.3 10^3/uL (0.0-0.5); EOS % 2.4 % (0.0-3.0); HEMATOCRIT 24.1 % (42.0-52.0); HEMOGLOBIN 7.6 g/dl (13.5-17.5); LYMPH # 1.1 10^3/uL (1.5-5.0); LYMPH % 10.7 % (24.0-44.0); MEAN CORPUSCULAR HEMOGLOBIN 28.3 pg (27.0-33.0); MEAN CORPUSCULAR HGB CONC 31.5 g/dl (32.0-36.5); MEAN CORPUSCULAR VOLUME 89.6 fl (80.0-96.0); MONO # 0.7 10^3/uL (0.0-0.8); MONO % 6.5 % (2.0-8.0); NEUTROPHILS # 8.2 10^3/uL (1.5-8.5); NEUTROPHILS % 79.7 % (36.0-66.0); PLATELET COUNT, AUTOMATED 208 10^3/uL (150-450); RED BLOOD COUNT 2.69 10^6/uL (4.30-6.10); WHITE BLOOD COUNT 10.2 10^3/uL (4.0-10.0)
[2021-05-15 06:35] LABS: ALT/SGPT 17 U/L (12-78); BILIRUBIN,TOTAL 0.4 MG/DL (0.2-1.0); BLOOD UREA NITROGEN 17 MG/DL (7-18); CALCIUM LEVEL 8.5 MG/DL (8.8-10.2); CARBON DIOXIDE LEVEL 29 MEQ/L (21-32); CHLORIDE LEVEL 106 MEQ/L (98-107); CREATININE FOR GFR 1.12 MG/DL (0.70-1.30); GLOMERULAR FILTRATION RATE > 60.0 (>35); GLUCOSE, FASTING 86 MG/DL (70-100); MAGNESIUM LEVEL 2.2 MG/DL (1.8-2.4); SODIUM LEVEL 138 MEQ/L (136-145); TOTAL PROTEIN 6.5 GM/DL (6.4-8.2)
[2021-05-15] MEDS: ASPIRIN 81MG ENTERIC TABLET PO SCH (10:57)
[2021-05-15] MEDS: FERROUS GLUCONATE 324 MG TAB PO SCH (10:57)
[2021-05-15] MEDS: AMIODARONE 200 MG TAB (PACERONE) PO SCH (10:57)
[2021-05-15] MEDS: TAMSULOSIN 0.4 MG CAP PO SCH (10:57)
[2021-05-15] MEDS: APIXABAN 2.5 MG TAB (ELIQUIS) PO SCH ×2 (10:57→21:43)
[2021-05-15] MEDS: PANTOPRAZOLE 40MG TAB (PROTONIX) PO SCH (10:57)
[2021-05-15] MEDS: DOCUSATE SODIUM 100MG CAPSULE PO SCH ×2 (10:57→21:43)
[2021-05-15] MEDS: MULTIVITAMINS/MINERALS THERAP 1 TAB PO SCH (10:57)
[2021-05-15] MEDS: ATORVASTATIN 20 MG TAB PO SCH (10:57)
[2021-05-15 11:14] VITALS: BP 117/56
[2021-05-15 11:29] VITALS: BP 116/58
[2021-05-15 12:30] VITALS: BP 118/56
[2021-05-15 13:30] VITALS: BP 118/62
[2021-05-15] MEDS: PREGABALIN 75 MG CAP(LYRICA) PO SCH (21:43)
[2021-05-16] MEDS: LEVOTHYROXINE 112MCG TABLET (0.112MG) PO SCH (06:41)
[2021-05-16 06:57] LABS: HEMATOCRIT 25.7 % (42.0-52.0); HEMOGLOBIN 8.1 g/dl (13.5-17.5); MEAN CORPUSCULAR HEMOGLOBIN 28.2 pg (27.0-33.0); MEAN CORPUSCULAR HGB CONC 31.5 g/dl (32.0-36.5); MEAN CORPUSCULAR VOLUME 89.5 fl (80.0-96.0); PLATELET COUNT, AUTOMATED 208 10^3/uL (150-450); RED BLOOD COUNT 2.87 10^6/uL (4.30-6.10); WHITE BLOOD COUNT 7.7 10^3/uL (4.0-10.0)
[2021-05-16 07:23] LABS: BLOOD UREA NITROGEN 19 MG/DL (7-18); CALCIUM LEVEL 8.6 MG/DL (8.8-10.2); CARBON DIOXIDE LEVEL 29 MEQ/L (21-32); CHLORIDE LEVEL 105 MEQ/L (98-107); CREATININE FOR GFR 1.04 MG/DL (0.70-1.30); GLOMERULAR FILTRATION RATE > 60.0 (>35); GLUCOSE, FASTING 84 MG/DL (70-100); SODIUM LEVEL 138 MEQ/L (136-145)
[2021-05-16] MEDS: MULTIVITAMINS/MINERALS THERAP 1 TAB PO SCH (09:18)
[2021-05-16] MEDS: PANTOPRAZOLE 40MG TAB (PROTONIX) PO SCH (09:18)
[2021-05-16] MEDS: AMIODARONE 200 MG TAB (PACERONE) PO SCH (09:18)
[2021-05-16] MEDS: ASPIRIN 81MG ENTERIC TABLET PO SCH (09:19)
[2021-05-16] MEDS: TAMSULOSIN 0.4 MG CAP PO SCH (09:19)
[2021-05-16] MEDS: DOCUSATE SODIUM 100MG CAPSULE PO SCH (09:19)
[2021-05-16] MEDS: ATORVASTATIN 20 MG TAB PO SCH (09:19)
[2021-05-16] MEDS: APIXABAN 2.5 MG TAB (ELIQUIS) PO SCH (09:19)
[2021-05-16] MEDS: FERROUS GLUCONATE 324 MG TAB PO SCH (09:19)
== END 2021-05-16 13:05 | DRG 178 ==
LOC: EDBD 15:09 → M ED 15:09 → M ED INP 18:21 → M PCU 05-09 02:57 → M MS5PR 05-13 15:40
PROVIDERS: ADMIT Internal Medicine; ATTEND Internal Medicine
PROC: 30233N1 Transfusion of Nonautologous Red Blood Cells into Peripheral Vein, Percutaneous Approach (ICD-10-PCS; principal; 2021-05-15)
DX: J69.0 Pneumonitis due to inhalation of food and vomit (principal); E87.2 Acidosis; N17.9 Acute kidney failure, unspecified; I48.20 Chronic atrial fibrillation, unspecified; I50.32 Chronic diastolic (congestive) heart failure; R53.1 Weakness; I25.10 Atherosclerotic heart disease of native coronary artery without angina pectoris; I11.0 Hypertensive heart disease with heart failure; N40.0 Benign prostatic hyperplasia without lower urinary tract symptoms; R00.1 Bradycardia, unspecified; E03.9 Hypothyroidism, unspecified; M48.00 Spinal stenosis, site unspecified; D50.9 Iron deficiency anemia, unspecified; Z85.51 Personal history of malignant neoplasm of bladder; Z95.1 Presence of aortocoronary bypass graft; 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 cardiac pacemaker; Z90.49 Acquired absence of other specified parts of digestive tract; Z98.41 Cataract extraction status, right eye; Z98.42 Cataract extraction status, left eye; Z92.21 Personal history of antineoplastic chemotherapy; Z79.01 Long term (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 anticoagulants; Z79.82 Long term (current) use of aspirin; Z79.899 Other long term (current) drug therapy

== ENCOUNTER → 2021-05-17 | Outpatient (REF) | payer MEDICARE, BC ==
[~2021-05-17] MED LIST changes: +ALBU83IN INH
== END ==
PROVIDERS: ATTEND Internal Medicine
DX: Z11.2 Encounter for screening for other bacterial diseases (principal); Z86.14 Personal history of Methicillin resistant Staphylococcus aureus infection

== ENCOUNTER → 2021-05-20 | Outpatient (REF) | payer MEDICARE, BC ==
[2021-05-20 10:51] LABS: HEMATOCRIT 28.1 % (42.0-52.0); HEMOGLOBIN 8.6 g/dl (13.5-17.5); MEAN CORPUSCULAR HEMOGLOBIN 28.1 pg (27.0-33.0); MEAN CORPUSCULAR HGB CONC 30.6 g/dl (32.0-36.5); MEAN CORPUSCULAR VOLUME 91.8 fl (80.0-96.0); PLATELET COUNT, AUTOMATED 297 10^3/uL (150-450); RED BLOOD COUNT 3.06 10^6/uL (4.30-6.10); WHITE BLOOD COUNT 7.6 10^3/uL (4.0-10.0)
[2021-05-20 11:27] LABS: BLOOD UREA NITROGEN 17 MG/DL (7-18); CALCIUM LEVEL 8.6 MG/DL (8.8-10.2); CARBON DIOXIDE LEVEL 29 MEQ/L (21-32); CHLORIDE LEVEL 105 MEQ/L (98-107); CREATININE FOR GFR 1.13 MG/DL (0.70-1.30); GLOMERULAR FILTRATION RATE > 60.0 (>35); GLUCOSE, FASTING 125 MG/DL (70-100); POTASSIUM SERUM 4.1 MEQ/L (3.5-5.1); SODIUM LEVEL 140 MEQ/L (136-145); TOTAL PROTEIN 6.6 GM/DL (6.4-8.2)
[2021-05-20 14:49] LABS: VITAMIN B12 LEVEL 531 PG/ML (247-911)
[2021-05-20 14:50] LABS: FOLATE 14.2 NG/ML (>5.4)
[2021-05-21 11:15] LABS: ALBUMIN 2.61 GM/DL (3.29-5.55); ALBUMIN % 39.5 % (55.8-66.1); ALPHA-1-GLOBULIN % 7.7 % (2.9-4.9); ALPHA-1-GLOBULINS 0.51 GM/DL (0.17-0.41); ALPHA-2-GLOBULINS 0.85 GM/DL (0.42-0.99); ALPHA-2-GLOBULINS % 12.9 % (7.1-11.8); BETA-1-GLOBULINS 0.41 GM/DL (0.28-0.60); BETA-1-GLOBULINS % 6.2 % (4.7-7.2); BETA-2-GLOBULINS 0.59 GM/DL (0.19-0.55); GAMMA GLOBULIN % 24.7 % (11.1-18.8); GAMMA GLOBULINS 1.63 GM/DL (0.65-1.58)
== END ==
PROVIDERS: ATTEND Internal Medicine
DX: D64.9 Anemia, unspecified (principal)

== ENCOUNTER → 2021-05-23 | Outpatient (REF) | payer BC, MEDICARE ==
[~2021-05-23] MED LIST changes: +BISA10SU27 PR; +CEFU50TA PO; +COLA100C5 PO; +FLEEENE12 PR; -FLUTISP; +MILKSUS3 PO
== END ==
PROVIDERS: ATTEND Internal Medicine
DX: D64.9 Anemia, unspecified (principal)

== ENCOUNTER → 2021-06-10 | Outpatient (REF) ==
[~2021-06-10] MED LIST changes: -BISA10SU27 PR; -CEFU50TA PO; -COLA100C5 PO; -FLEEENE12 PR; +FLUTISP; -MILKSUS3 PO
[2021-06-10 10:36] LABS: HEMATOCRIT 27.8 % (42.0-52.0); HEMOGLOBIN 8.5 g/dl (13.5-17.5); MEAN CORPUSCULAR HEMOGLOBIN 27.8 pg (27.0-33.0); MEAN CORPUSCULAR HGB CONC 30.6 g/dl (32.0-36.5); MEAN CORPUSCULAR VOLUME 90.8 fl (80.0-96.0); PLATELET COUNT, AUTOMATED 252 10^3/uL (150-450); RED BLOOD COUNT 3.06 10^6/uL (4.30-6.10); WHITE BLOOD COUNT 7.1 10^3/uL (4.0-10.0)
[2021-06-10 11:05] LABS: BLOOD UREA NITROGEN 19 MG/DL (7-18); CALCIUM LEVEL 8.9 MG/DL (8.8-10.2); CARBON DIOXIDE LEVEL 31 MEQ/L (21-32); CHLORIDE LEVEL 106 MEQ/L (98-107); CREATININE FOR GFR 1.03 MG/DL (0.70-1.30); GLOMERULAR FILTRATION RATE > 60.0 (>35); GLUCOSE, FASTING 105 MG/DL (70-100); POTASSIUM SERUM 4.2 MEQ/L (3.5-5.1); SODIUM LEVEL 141 MEQ/L (136-145)
== END ==
PROVIDERS: ATTEND Internal Medicine
DX: Z79.899 Other long term (current) drug therapy (principal)

== ENCOUNTER → 2021-06-17 | Outpatient (REF) ==
[~2021-06-17] MED LIST changes: +BISA10SU27 PR; +CEFU50TA PO; +COLA100C5 PO; +FLEEENE12 PR; -FLUTISP; +MILKSUS3 PO
[2021-06-17 10:24] LABS: HEMATOCRIT 27.5 % (42.0-52.0); HEMOGLOBIN 8.3 g/dl (13.5-17.5); MEAN CORPUSCULAR HEMOGLOBIN 27.6 pg (27.0-33.0); MEAN CORPUSCULAR HGB CONC 30.2 g/dl (32.0-36.5); MEAN CORPUSCULAR VOLUME 91.4 fl (80.0-96.0); PLATELET COUNT, AUTOMATED 255 10^3/uL (150-450); RED BLOOD COUNT 3.01 10^6/uL (4.30-6.10)
[2021-06-17 11:01] LABS: BLOOD UREA NITROGEN 23 MG/DL (7-18); CALCIUM LEVEL 8.9 MG/DL (8.8-10.2); CARBON DIOXIDE LEVEL 30 MEQ/L (21-32); CHLORIDE LEVEL 109 MEQ/L (98-107); CREATININE FOR GFR 1.02 MG/DL (0.70-1.30); GLOMERULAR FILTRATION RATE > 60.0 (>35); GLUCOSE, FASTING 94 MG/DL (70-100); POTASSIUM SERUM 3.9 MEQ/L (3.5-5.1); SODIUM LEVEL 142 MEQ/L (136-145)
== END ==
PROVIDERS: ATTEND Internal Medicine
DX: I51.9 Heart disease, unspecified (principal)

== ENCOUNTER 2021-06-29 02:45 | Emergency (ER) | payer MEDICARE, BC ==
[~2021-06-29] VITALS: Ht 180.3 cm; Wt 81.8 kg
[~2021-06-29 02:45] MED LIST changes: -BISA10SU27 PR; -CEFU50TA PO; -COLA100C5 PO; -FLEEENE12 PR; -MILKSUS3 PO
[2021-06-29] MEDS ORDERED: ONDANSETRON 4MG/2ML VIAL IV ONE (05:10)
[2021-06-29 06:03] LABS: BASO % 0.5 % (0.0-1.0); EOS # 0.3 10^3/uL (0.0-0.5); EOS % 3.2 % (0.0-3.0); HEMATOCRIT 27.1 % (42.0-52.0); HEMOGLOBIN 8.3 g/dl (13.5-17.5); LYMPH # 1.1 10^3/uL (1.5-5.0); LYMPH % 13.7 % (24.0-44.0); MEAN CORPUSCULAR HEMOGLOBIN 27.7 pg (27.0-33.0); MEAN CORPUSCULAR HGB CONC 30.6 g/dl (32.0-36.5); MEAN CORPUSCULAR VOLUME 90.3 fl (80.0-96.0); MONO # 0.5 10^3/uL (0.0-0.8); MONO % 5.8 % (2.0-8.0); NEUTROPHILS # 6.1 10^3/uL (1.5-8.5); NEUTROPHILS % 76.4 % (36.0-66.0); PLATELET COUNT, AUTOMATED 242 10^3/uL (150-450); WHITE BLOOD COUNT 7.9 10^3/uL (4.0-10.0)
[2021-06-29 06:31] LABS: ALBUMIN 2.3 GM/DL (3.2-5.2); ALT/SGPT 16 U/L (12-78); BILIRUBIN,TOTAL 0.3 MG/DL (0.2-1.0); BLOOD UREA NITROGEN 23 MG/DL (7-18); CALCIUM LEVEL 8.5 MG/DL (8.8-10.2); CARBON DIOXIDE LEVEL 31 MEQ/L (21-32); CHLORIDE LEVEL 107 MEQ/L (98-107); GLOMERULAR FILTRATION RATE > 60.0 (>35); GLUCOSE, FASTING 114 MG/DL (70-100); LIPASE 153 U/L (73-393); POTASSIUM SERUM 4.2 MEQ/L (3.5-5.1); SODIUM LEVEL 142 MEQ/L (136-145)
[2021-06-29] MEDS ORDERED: ISOVUE-370 76% 100ML VIAL As Ordered ONE (07:34)
[2021-06-29] MEDS ORDERED: D5W/LR 500 ML IV SCH (08:55)
[2021-06-29 11:31] VITALS: BP 144/67
== END 2021-06-29 12:07 | disposition home or self-care (01) ==
LOC: M ED 02:45
DX: K56.41 Fecal impaction (principal); I10 Essential (primary) hypertension; E78.5 Hyperlipidemia, unspecified; Z79.899 Other long term (current) drug therapy; Z79.82 Long term (current) use of aspirin; Z79.890 Hormone replacement therapy; Z79.01 Long term (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 anticoagulants
CPT/HCPCS: 74177; 80053; 83605; 83690; 85025; 96360; 96361; 99285; Q9967

== ENCOUNTER 2021-07-03 16:08 | Inpatient (IN) | payer BC, MEDICARE ==
[~2021-07-03] VITALS: Ht 182.9 cm; Wt 82.3 kg
[2021-07-03 17:36] LABS: BASO % 0.2 % (0.0-1.0); EOS # 0.2 10^3/uL (0.0-0.5); EOS % 1.3 % (0.0-3.0); HEMATOCRIT 27.6 % (42.0-52.0); HEMOGLOBIN 8.6 g/dl (13.5-17.5); LYMPH % 8.8 % (24.0-44.0); MEAN CORPUSCULAR HEMOGLOBIN 27.7 pg (27.0-33.0); MEAN CORPUSCULAR HGB CONC 31.2 g/dl (32.0-36.5); MONO # 0.5 10^3/uL (0.0-0.8); MONO % 4.5 % (2.0-8.0); NEUTROPHILS # 9.6 10^3/uL (1.5-8.5); NEUTROPHILS % 84.7 % (36.0-66.0); PLATELET COUNT, AUTOMATED 244 10^3/uL (150-450); WHITE BLOOD COUNT 11.4 10^3/uL (4.0-10.0)
[2021-07-03 17:56] LABS: ALBUMIN 2.3 GM/DL (3.2-5.2); BILIRUBIN,DIRECT 0.2 MG/DL (0.0-0.2); BILIRUBIN,TOTAL 0.3 MG/DL (0.2-1.0); CALCIUM LEVEL 8.3 MG/DL (8.8-10.2); CREATININE FOR GFR 1.5 MG/DL (0.70-1.30); POTASSIUM SERUM 4.3 MEQ/L (3.5-5.1)
[2021-07-03 17:58] LABS: CK-MB VALUE MASS 2.6 NG/ML (<3.6); MB/CK RELATIVE INDEX 3.94 (< OR =4)
[2021-07-03] MEDS ORDERED: cefTRIAXone SOD 1 GM in D5W MINI-BAG PLUS 50 ML IV ONE (18:20)
[2021-07-03] MEDS ORDERED: ACETAMINOPHEN TAB 650MG DOSE (2X325MG) PO PRN (18:30)
[2021-07-03] MEDS ORDERED: FLEEENE12 PR (18:39)
[2021-07-03] MEDS ORDERED: ACET1TAB55 PO (18:39)
[2021-07-03] MEDS ORDERED: MILKSUS3 PO (18:39)
[2021-07-03] MEDS ORDERED: COLA100C5 PO (18:39)
[2021-07-03] MEDS ORDERED: TORS10TA3 PO ×2 (18:39)
[2021-07-03] MEDS ORDERED: BISA10SU27 PR (18:39)
[2021-07-03] MEDS ORDERED: HOME MED LIST COMPLETE! XX SCH (18:40)
[2021-07-03 19:08] LABS: MAGNESIUM LEVEL 2.4 MG/DL (1.8-2.4)
[2021-07-03 20:10] LABS: INR 1.6; PROTHROMBIN TIME 19.5 SECONDS (12.7-14.5)
[2021-07-03 20:39] LABS: FREE T4 1.15 NG/DL (0.76-1.46); THYROID STIMULATING HORMONE 29.6 uIU/ML (0.358-3.740)
[2021-07-03] MEDS ORDERED: FLEET ENEMA PR PRN (20:55)
[2021-07-03] MEDS ORDERED: ALBUTEROL SULFATE 2.5 MG/0.5 ML INH NEB SOLN INH PRN (20:55)
[2021-07-03] MEDS ORDERED: BISACODYL 10 MG SUPP PR ONE (20:55)
[2021-07-03] MEDS ORDERED: FLUTICASONE PROP 0.05% NASAL SPRAY 16 GM (FLONASE) NARES PRN (20:55)
[2021-07-03] MEDS ORDERED: BENZONATATE 100MG CAPSULE PO PRN (20:55)
[2021-07-03] MEDS ORDERED: MOM 30ML SUSPENSION UDC PO PRN (20:55)
[2021-07-03] MEDS ORDERED: MIRALAX *UNIT DOSE* 17GM PACKET PO SCH (21:00)
[2021-07-03 21:20] VITALS: BP 107/55
[2021-07-03] MEDS: DOCUSATE SODIUM 100MG CAPSULE PO SCH (22:10)
[2021-07-03] MEDS: BISACODYL 5 MG TAB PO SCH (22:10)
[2021-07-03] MEDS: ATORVASTATIN 20 MG TAB PO SCH (22:10)
[2021-07-03] MEDS: PREGABALIN 75 MG CAP(LYRICA) PO SCH (22:11)
[2021-07-03] MEDS: APIXABAN 2.5 MG TAB (ELIQUIS) PO SCH (22:11)
[2021-07-04 06:00] VITALS: BP_SYST 103; BP_SYST 118; BP_DIAS 53; BP_DIAS 58
[2021-07-04] MEDS ORDERED: LEVOTHYROXINE 112MCG TABLET (0.112MG) PO SCH (06:00)
[2021-07-04 06:03] LABS: BASO % 0.2 % (0.0-1.0); EOS # 0.3 10^3/uL (0.0-0.5); EOS % 3.6 % (0.0-3.0); HEMATOCRIT 24.6 % (42.0-52.0); HEMOGLOBIN 7.5 g/dl (13.5-17.5); LYMPH # 0.9 10^3/uL (1.5-5.0); MEAN CORPUSCULAR HEMOGLOBIN 27.1 pg (27.0-33.0); MEAN CORPUSCULAR HGB CONC 30.5 g/dl (32.0-36.5); MEAN CORPUSCULAR VOLUME 88.8 fl (80.0-96.0); MONO # 0.4 10^3/uL (0.0-0.8); MONO % 4.7 % (2.0-8.0); NEUTROPHILS # 6.6 10^3/uL (1.5-8.5); NEUTROPHILS % 79.9 % (36.0-66.0); PLATELET COUNT, AUTOMATED 214 10^3/uL (150-450); RED BLOOD COUNT 2.77 10^6/uL (4.30-6.10); WHITE BLOOD COUNT 8.3 10^3/uL (4.0-10.0)
[2021-07-04 06:23] LABS: CALCIUM LEVEL 8.1 MG/DL (8.8-10.2); CREATININE FOR GFR 1.26 MG/DL (0.70-1.30); GLOMERULAR FILTRATION RATE 57.5 (>35); POTASSIUM SERUM 4.2 MEQ/L (3.5-5.1)
[2021-07-04] MEDS ORDERED: LACTULOSE 20 GM/30 ML SYRUP UD PO ONE ×2 (08:00→17:55)
[2021-07-04] MEDS ORDERED: FLEET OIL RETENTION ENEMA PR ONE (08:00)
[2021-07-04] MEDS ORDERED: MIRALAX *UNIT DOSE* 17GM PACKET PO SCH (09:00)
[2021-07-04] MEDS ORDERED: cefTRIAXone SOD 1 GM in D5W MINI-BAG PLUS 50 ML IV SCH (09:00)
[2021-07-04] MEDS ORDERED: CIPROFLOXACIN 400 MG in IV 1 EA IV SCH (09:00)
[2021-07-04] MEDS ORDERED: metroNIDAZOLE 500 MG in IV 1 EA IV SCH (10:00)
[2021-07-04] MEDS: MULTIVITAMINS/MINERALS THERAP 1 TAB PO SCH (10:26)
[2021-07-04] MEDS: NS 1,000 ML IV SCH (10:26)
[2021-07-04] MEDS: FERROUS GLUCONATE 324 MG TAB PO SCH (10:26)
[2021-07-04] MEDS: PIPERACILLIN/TAZOBACTAM SOD 3.375 GM in D5W MINI-BAG PLUS 50 ML IV SCH ×3 (10:26→21:51)
[2021-07-04] MEDS: ASPIRIN 81MG ENTERIC TABLET PO SCH (10:26)
[2021-07-04] MEDS: LACTOBACILLUS ACIDOPHILUS CAP (BACID) PO SCH (10:27)
[2021-07-04] MEDS: APIXABAN 2.5 MG TAB (ELIQUIS) PO SCH ×2 (10:27→21:51)
[2021-07-04] MEDS: TAMSULOSIN 0.4 MG CAP PO SCH (10:27)
[2021-07-04] MEDS: FINASTERIDE 5MG TAB PO SCH (10:27)
[2021-07-04] MEDS: AMIODARONE 200 MG TAB (PACERONE) PO SCH (10:27)
[2021-07-04] MEDS: DOCUSATE SODIUM 100MG CAPSULE PO SCH ×2 (10:27→21:51)
[2021-07-04] MEDS: PANTOPRAZOLE 40MG TAB (PROTONIX) PO SCH (10:27)
[2021-07-04 16:19] VITALS: BP 108/49
[2021-07-04] MEDS ORDERED: FLEET OIL RETENTION ENEMA PR PRN (17:55)
[2021-07-04 19:14] VITALS: BP 109/50
[2021-07-04] MEDS: SENNA 8.6 MG TAB (SENOKOT) PO SCH (21:51)
[2021-07-04] MEDS: PREGABALIN 75 MG CAP(LYRICA) PO SCH (21:51)
[2021-07-04] MEDS: ATORVASTATIN 20 MG TAB PO SCH (21:51)
[2021-07-04] MEDS: BISACODYL 5 MG TAB PO SCH (21:51)
[2021-07-05] MEDS: NS 1,000 ML IV SCH ×2 (02:17→13:16)
[2021-07-05] MEDS: PIPERACILLIN/TAZOBACTAM SOD 3.375 GM in D5W MINI-BAG PLUS 50 ML IV SCH (02:17)
[2021-07-05 06:00] VITALS: BP 108/51
[2021-07-05 06:00] LABS: BASO % 0.3 % (0.0-1.0); EOS # 0.3 10^3/uL (0.0-0.5); EOS % 3.6 % (0.0-3.0); HEMATOCRIT 23.8 % (42.0-52.0); HEMOGLOBIN 7.4 g/dl (13.5-17.5); LYMPH # 1.2 10^3/uL (1.5-5.0); LYMPH % 16.5 % (24.0-44.0); MEAN CORPUSCULAR HEMOGLOBIN 27.2 pg (27.0-33.0); MEAN CORPUSCULAR HGB CONC 31.1 g/dl (32.0-36.5); MEAN CORPUSCULAR VOLUME 87.5 fl (80.0-96.0); MONO # 0.5 10^3/uL (0.0-0.8); MONO % 6.4 % (2.0-8.0); NEUTROPHILS # 5.2 10^3/uL (1.5-8.5); NEUTROPHILS % 72.6 % (36.0-66.0); PLATELET COUNT, AUTOMATED 204 10^3/uL (150-450); RED BLOOD COUNT 2.72 10^6/uL (4.30-6.10); WHITE BLOOD COUNT 7.2 10^3/uL (4.0-10.0)
[2021-07-05 06:23] LABS: BLOOD UREA NITROGEN 24 MG/DL (7-18); CALCIUM LEVEL 8.3 MG/DL (8.8-10.2); CARBON DIOXIDE LEVEL 32 MEQ/L (21-32); CHLORIDE LEVEL 108 MEQ/L (98-107); CREATININE FOR GFR 1.21 MG/DL (0.70-1.30); GLOMERULAR FILTRATION RATE > 60.0 (>35); GLUCOSE, FASTING 77 MG/DL (70-100); POTASSIUM SERUM 4.1 MEQ/L (3.5-5.1); SODIUM LEVEL 143 MEQ/L (136-145)
[2021-07-05] MEDS: LEVOTHYROXINE 125MCG TABLET (0.125MG) PO SCH (06:23)
[2021-07-05] MEDS: guaiFENesin ER 600 MG TAB PO PRN ×2 (06:23→20:58)
[2021-07-05] MEDS ORDERED: LevoFLOXacin IV 500 MG in IV 1 EA IV SCH (08:00)
[2021-07-05] MEDS ORDERED: MIRALAX *UNIT DOSE* 17GM PACKET PO PRN (08:05)
[2021-07-05] MEDS: TAMSULOSIN 0.4 MG CAP PO SCH (09:39)
[2021-07-05] MEDS: ASPIRIN 81MG ENTERIC TABLET PO SCH (09:39)
[2021-07-05] MEDS: AMIODARONE 200 MG TAB (PACERONE) PO SCH (09:39)
[2021-07-05] MEDS: FINASTERIDE 5MG TAB PO SCH (09:39)
[2021-07-05] MEDS: LACTOBACILLUS ACIDOPHILUS CAP (BACID) PO SCH (09:39)
[2021-07-05] MEDS: MULTIVITAMINS/MINERALS THERAP 1 TAB PO SCH (09:39)
[2021-07-05] MEDS: PANTOPRAZOLE 40MG TAB (PROTONIX) PO SCH (09:39)
[2021-07-05] MEDS: APIXABAN 2.5 MG TAB (ELIQUIS) PO SCH ×2 (09:39→20:57)
[2021-07-05] MEDS: FERROUS GLUCONATE 324 MG TAB PO SCH (09:39)
[2021-07-05] MEDS: cefTRIAXone SOD 1 GM in D5W MINI-BAG PLUS 50 ML IV SCH (09:39)
[2021-07-05] MEDS: metroNIDAZOLE 500 MG in IV 1 EA IV SCH ×2 (13:16→18:02)
[2021-07-05 14:00] VITALS: BP 110/50
[2021-07-05 20:50] VITALS: BP 113/47
[2021-07-05] MEDS: BISACODYL 5 MG TAB PO SCH (20:57)
[2021-07-05] MEDS: SENNA 8.6 MG TAB (SENOKOT) PO SCH (20:57)
[2021-07-05] MEDS: ATORVASTATIN 20 MG TAB PO SCH (20:57)
[2021-07-05] MEDS: PREGABALIN 75 MG CAP(LYRICA) PO SCH (20:58)
[2021-07-05 23:32] LABS: PERCENT SATURATION 22.6 % (19.7-50.0)
[2021-07-06] MEDS: metroNIDAZOLE 500 MG in IV 1 EA IV SCH ×3 (01:44→17:51)
[2021-07-06] MEDS: guaiFENesin ER 600 MG TAB PO PRN ×2 (05:47→21:19)
[2021-07-06] MEDS: LEVOTHYROXINE 125MCG TABLET (0.125MG) PO SCH (05:47)
[2021-07-06 06:09] VITALS: BP 112/51
[2021-07-06 06:19] LABS: BASO % 0.5 % (0.0-1.0); EOS # 0.2 10^3/uL (0.0-0.5); EOS % 3.7 % (0.0-3.0); HEMATOCRIT 23.1 % (42.0-52.0); HEMOGLOBIN 7.3 g/dl (13.5-17.5); LYMPH % 17.1 % (24.0-44.0); MEAN CORPUSCULAR HEMOGLOBIN 27.5 pg (27.0-33.0); MEAN CORPUSCULAR HGB CONC 31.6 g/dl (32.0-36.5); MEAN CORPUSCULAR VOLUME 87.2 fl (80.0-96.0); MONO # 0.5 10^3/uL (0.0-0.8); MONO % 7.6 % (2.0-8.0); NEUTROPHILS # 4.2 10^3/uL (1.5-8.5); NEUTROPHILS % 70.4 % (36.0-66.0); PLATELET COUNT, AUTOMATED 199 10^3/uL (150-450); RED BLOOD COUNT 2.65 10^6/uL (4.30-6.10)
[2021-07-06 06:36] LABS: BLOOD UREA NITROGEN 21 MG/DL (7-18); CARBON DIOXIDE LEVEL 29 MEQ/L (21-32); CHLORIDE LEVEL 108 MEQ/L (98-107); GLOMERULAR FILTRATION RATE > 60.0 (>35); GLUCOSE, FASTING 71 MG/DL (70-100); POTASSIUM SERUM 4.3 MEQ/L (3.5-5.1); SODIUM LEVEL 140 MEQ/L (136-145)
[2021-07-06 08:00] VITALS: BP_SYST 101; BP_SYST 96; BP_DIAS 48; BP_DIAS 50
[2021-07-06] MEDS: AMIODARONE 200 MG TAB (PACERONE) PO SCH (09:00)
[2021-07-06] MEDS: APIXABAN 2.5 MG TAB (ELIQUIS) PO SCH ×2 (09:46→21:18)
[2021-07-06] MEDS: FERROUS GLUCONATE 324 MG TAB PO SCH (09:46)
[2021-07-06] MEDS: cefTRIAXone SOD 1 GM in D5W MINI-BAG PLUS 50 ML IV SCH (09:46)
[2021-07-06] MEDS: FINASTERIDE 5MG TAB PO SCH (09:46)
[2021-07-06] MEDS: TAMSULOSIN 0.4 MG CAP PO SCH (09:46)
[2021-07-06] MEDS: ASPIRIN 81MG ENTERIC TABLET PO SCH (09:46)
[2021-07-06] MEDS: LACTOBACILLUS ACIDOPHILUS CAP (BACID) PO SCH (09:47)
[2021-07-06] MEDS: MULTIVITAMINS/MINERALS THERAP 1 TAB PO SCH (09:47)
[2021-07-06] MEDS: PANTOPRAZOLE 40MG TAB (PROTONIX) PO SCH (09:47)
[2021-07-06 10:00] VITALS: BP 106/52
[2021-07-06 12:00] VITALS: BP 130/62
[2021-07-06 14:00] VITALS: BP 129/61
[2021-07-06 19:58] VITALS: BP 103/59
[2021-07-06] MEDS: BISACODYL 5 MG TAB PO SCH (21:18)
[2021-07-06] MEDS: ATORVASTATIN 20 MG TAB PO SCH (21:18)
[2021-07-06] MEDS: SENNA 8.6 MG TAB (SENOKOT) PO SCH (21:19)
[2021-07-06] MEDS: PREGABALIN 75 MG CAP(LYRICA) PO SCH (21:19)
[2021-07-07] VITALS (14 sets, daily range): BP systolic 120–134; BP diastolic 50–74
[2021-07-07] MEDS: metroNIDAZOLE 500 MG in IV 1 EA IV SCH ×3 (01:28→18:52)
[2021-07-07] MEDS: LEVOTHYROXINE 125MCG TABLET (0.125MG) PO SCH (06:28)
[2021-07-07] MEDS: guaiFENesin ER 600 MG TAB PO PRN (06:28)
[2021-07-07 06:41] LABS: HEMATOCRIT 22.9 % (42.0-52.0); HEMOGLOBIN 7.1 g/dl (13.5-17.5); MEAN CORPUSCULAR HEMOGLOBIN 27.2 pg (27.0-33.0); MEAN CORPUSCULAR VOLUME 87.7 fl (80.0-96.0); PLATELET COUNT, AUTOMATED 193 10^3/uL (150-450); RED BLOOD COUNT 2.61 10^6/uL (4.30-6.10); WHITE BLOOD COUNT 5.5 10^3/uL (4.0-10.0)
[2021-07-07 07:11] LABS: CALCIUM LEVEL 8.2 MG/DL (8.8-10.2); CREATININE FOR GFR 1.23 MG/DL (0.70-1.30); GLOMERULAR FILTRATION RATE 59.1 (>35); POTASSIUM SERUM 4.2 MEQ/L (3.5-5.1)
[2021-07-07] MEDS: cefTRIAXone SOD 1 GM in D5W MINI-BAG PLUS 50 ML IV SCH (09:34)
[2021-07-07] MEDS: MULTIVITAMINS/MINERALS THERAP 1 TAB PO SCH (09:34)
[2021-07-07] MEDS: DOCUSATE SODIUM 100MG CAPSULE PO SCH ×2 (09:34→20:22)
[2021-07-07] MEDS: ASPIRIN 81MG ENTERIC TABLET PO SCH (09:34)
[2021-07-07] MEDS: LACTOBACILLUS ACIDOPHILUS CAP (BACID) PO SCH (09:34)
[2021-07-07] MEDS: FINASTERIDE 5MG TAB PO SCH (09:34)
[2021-07-07] MEDS: TAMSULOSIN 0.4 MG CAP PO SCH (09:34)
[2021-07-07] MEDS: PANTOPRAZOLE 40MG TAB (PROTONIX) PO SCH (09:34)
[2021-07-07] MEDS: FERROUS GLUCONATE 324 MG TAB PO SCH (09:35)
[2021-07-07] MEDS: APIXABAN 2.5 MG TAB (ELIQUIS) PO SCH ×2 (09:35→20:22)
[2021-07-07] MEDS: ATORVASTATIN 20 MG TAB PO SCH (20:22)
[2021-07-07] MEDS: PREGABALIN 75 MG CAP(LYRICA) PO SCH (20:22)
[2021-07-07] MEDS: BISACODYL 5 MG TAB PO SCH (20:22)
[2021-07-07 21:25] LABS: HEMATOCRIT 28.3 % (42.0-52.0); HEMOGLOBIN 8.9 g/dl (13.5-17.5); MEAN CORPUSCULAR HEMOGLOBIN 27.6 pg (27.0-33.0); MEAN CORPUSCULAR HGB CONC 31.4 g/dl (32.0-36.5); MEAN CORPUSCULAR VOLUME 87.6 fl (80.0-96.0); PLATELET COUNT, AUTOMATED 179 10^3/uL (150-450); RED BLOOD COUNT 3.23 10^6/uL (4.30-6.10); WHITE BLOOD COUNT 6.6 10^3/uL (4.0-10.0)
[2021-07-08] MEDS: metroNIDAZOLE 500 MG in IV 1 EA IV SCH ×3 (03:49→17:37)
[2021-07-08] MEDS: LEVOTHYROXINE 125MCG TABLET (0.125MG) PO SCH (05:11)
[2021-07-08 06:00] VITALS: BP 131/55
[2021-07-08 06:13] LABS: HEMATOCRIT 28.2 % (42.0-52.0); HEMOGLOBIN 9.1 g/dl (13.5-17.5); MEAN CORPUSCULAR HEMOGLOBIN 28.1 pg (27.0-33.0); MEAN CORPUSCULAR HGB CONC 32.3 g/dl (32.0-36.5); PLATELET COUNT, AUTOMATED 184 10^3/uL (150-450); RED BLOOD COUNT 3.24 10^6/uL (4.30-6.10); WHITE BLOOD COUNT 6.7 10^3/uL (4.0-10.0)
[2021-07-08 06:35] LABS: BLOOD UREA NITROGEN 21 MG/DL (7-18); CALCIUM LEVEL 8.4 MG/DL (8.8-10.2); CARBON DIOXIDE LEVEL 29 MEQ/L (21-32); CHLORIDE LEVEL 110 MEQ/L (98-107); GLOMERULAR FILTRATION RATE > 60.0 (>35); GLUCOSE, FASTING 93 MG/DL (70-100); POTASSIUM SERUM 4.3 MEQ/L (3.5-5.1); SODIUM LEVEL 143 MEQ/L (136-145)
[2021-07-08] MEDS: cefTRIAXone SOD 1 GM in D5W MINI-BAG PLUS 50 ML IV SCH (09:35)
[2021-07-08] MEDS: DOCUSATE SODIUM 100MG CAPSULE PO SCH ×2 (09:35→20:48)
[2021-07-08] MEDS: LACTOBACILLUS ACIDOPHILUS CAP (BACID) PO SCH (09:35)
[2021-07-08] MEDS: FINASTERIDE 5MG TAB PO SCH (09:36)
[2021-07-08] MEDS: TAMSULOSIN 0.4 MG CAP PO SCH (09:36)
[2021-07-08] MEDS: FERROUS GLUCONATE 324 MG TAB PO SCH (09:36)
[2021-07-08] MEDS: APIXABAN 2.5 MG TAB (ELIQUIS) PO SCH ×2 (09:36→20:48)
[2021-07-08] MEDS: PANTOPRAZOLE 40MG TAB (PROTONIX) PO SCH (09:36)
[2021-07-08] MEDS: MULTIVITAMINS/MINERALS THERAP 1 TAB PO SCH (09:36)
[2021-07-08] MEDS: ASPIRIN 81MG ENTERIC TABLET PO SCH (09:36)
[2021-07-08 14:00] VITALS: BP 127/56
[2021-07-08] MEDS: ATORVASTATIN 20 MG TAB PO SCH (20:48)
[2021-07-08] MEDS: BISACODYL 5 MG TAB PO SCH (20:48)
[2021-07-08] MEDS: PREGABALIN 75 MG CAP(LYRICA) PO SCH (20:48)
[2021-07-08 20:51] VITALS: BP 119/55
[2021-07-09] MEDS: metroNIDAZOLE 500 MG in IV 1 EA IV SCH ×2 (02:35→10:36)
[2021-07-09 05:58] VITALS: BP 135/58
[2021-07-09] MEDS: LEVOTHYROXINE 125MCG TABLET (0.125MG) PO SCH (06:17)
[2021-07-09 06:23] LABS: HEMATOCRIT 29.5 % (42.0-52.0); HEMOGLOBIN 9.4 g/dl (13.5-17.5); MEAN CORPUSCULAR HEMOGLOBIN 28.1 pg (27.0-33.0); MEAN CORPUSCULAR HGB CONC 31.9 g/dl (32.0-36.5); MEAN CORPUSCULAR VOLUME 88.1 fl (80.0-96.0); PLATELET COUNT, AUTOMATED 173 10^3/uL (150-450); RED BLOOD COUNT 3.35 10^6/uL (4.30-6.10); WHITE BLOOD COUNT 6.6 10^3/uL (4.0-10.0)
[2021-07-09 06:48] LABS: BLOOD UREA NITROGEN 20 MG/DL (7-18); CALCIUM LEVEL 8.7 MG/DL (8.8-10.2); CARBON DIOXIDE LEVEL 32 MEQ/L (21-32); CHLORIDE LEVEL 107 MEQ/L (98-107); CREATININE FOR GFR 1.07 MG/DL (0.70-1.30); GLOMERULAR FILTRATION RATE > 60.0 (>35); GLUCOSE, FASTING 91 MG/DL (70-100); POTASSIUM SERUM 4.5 MEQ/L (3.5-5.1); SODIUM LEVEL 143 MEQ/L (136-145)
[2021-07-09] MEDS ORDERED: TORSEMIDE 10 MG TABLET PO SCH (09:00)
[2021-07-09] MEDS: ASPIRIN 81MG ENTERIC TABLET PO SCH (09:23)
[2021-07-09] MEDS: DOCUSATE SODIUM 100MG CAPSULE PO SCH (09:23)
[2021-07-09] MEDS: PANTOPRAZOLE 40MG TAB (PROTONIX) PO SCH (09:23)
[2021-07-09] MEDS: FINASTERIDE 5MG TAB PO SCH (09:23)
[2021-07-09] MEDS: MULTIVITAMINS/MINERALS THERAP 1 TAB PO SCH (09:23)
[2021-07-09] MEDS: FERROUS GLUCONATE 324 MG TAB PO SCH (09:23)
[2021-07-09] MEDS: APIXABAN 2.5 MG TAB (ELIQUIS) PO SCH (09:24)
[2021-07-09] MEDS: LACTOBACILLUS ACIDOPHILUS CAP (BACID) PO SCH (09:24)
[2021-07-09] MEDS: TAMSULOSIN 0.4 MG CAP PO SCH (09:24)
[2021-07-09] MEDS: cefTRIAXone SOD 1 GM in D5W MINI-BAG PLUS 50 ML IV SCH (09:25)
[2021-07-09] MEDS ORDERED: BACITAB PO (11:00)
[2021-07-09] MEDS ORDERED: CEFU50TA PO (11:00)
[2021-07-09] MEDS ORDERED: METR-265 PO (11:01)
== END 2021-07-09 14:23 | disposition home health service (06) | DRG 551 ==
LOC: EDBD 16:08 → M ED 16:08 → M ED INP 16:09 → UNDOADMOB 18:29 → INTOOBSV 18:29 → M ED INP 18:29 → M MSPAV 21:10 → M ED INP 21:10 → M MSPAV 21:10 → OBSVTOIN 07-04 19:28
PROVIDERS: ADMIT Internal Medicine; ATTEND General Practice
PROC: 30233N1 Transfusion of Nonautologous Red Blood Cells into Peripheral Vein, Percutaneous Approach (ICD-10-PCS; principal; 2021-07-07)
DX: M48.02 Spinal stenosis, cervical region (principal); J69.0 Pneumonitis due to inhalation of food and vomit; N17.9 Acute kidney failure, unspecified; N39.0 Urinary tract infection, site not specified; J90 Pleural effusion, not elsewhere classified; I50.32 Chronic diastolic (congestive) heart failure; M50.022 Cervical disc disorder at C5-C6 level with myelopathy; K52.89 Other specified noninfective gastroenteritis and colitis; B96.1 Klebsiella pneumoniae [K. pneumoniae] as the cause of diseases classified elsewhere; N40.1 Benign prostatic hyperplasia with lower urinary tract symptoms; R33.9 Retention of urine, unspecified; E03.9 Hypothyroidism, unspecified; R25.1 Tremor, unspecified; I25.10 Atherosclerotic heart disease of native coronary artery without angina pectoris; I11.0 Hypertensive heart disease with heart failure; I48.91 Unspecified atrial fibrillation; K21.9 Gastro-esophageal reflux disease without esophagitis; E78.5 Hyperlipidemia, unspecified; D50.9 Iron deficiency anemia, unspecified; E86.0 Dehydration; Z92.21 Personal history of antineoplastic chemotherapy; 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 cardiac pacemaker; Z85.51 Personal history of malignant neoplasm of bladder; Z79.01 Long term (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 anticoagulants; Z95.1 Presence of aortocoronary bypass graft; Z79.82 Long term (current) use of aspirin; Z79.899 Other long term (current) drug therapy; Z90.49 Acquired absence of other specified parts of digestive tract; Z98.41 Cataract extraction status, right eye; Z98.42 Cataract extraction status, left eye

== ENCOUNTER → 2021-07-15 | Outpatient (REF) | payer MEDICARE ==
[~2021-07-15] MED LIST changes: +BISA10SU27 PR; +CEFU50TA PO; +COLA100C5 PO; +FLEEENE12 PR; +MILKSUS3 PO
[2021-07-15 19:48] LABS: PERCENT SATURATION 26.3 % (19.7-50.0)
== END ==
LOC: M LAB REF 16:53
PROVIDERS: ATTEND Internal Medicine
DX: D64.9 Anemia, unspecified (principal)

== ENCOUNTER → 2021-09-05 | Outpatient (REF) ==
[2021-09-06 13:09] LABS: AMORPHOUS SEDIMENT SMALL (NEGATIVE); APPEARANCE, URINE HAZY (CLEAR); BACTERIA, URINE AUTO 1+ (NEGATIVE); BILIRUBIN, URINE AUTO NEGATIVE (NEGATIVE); BLOOD, URINE BLOOD 1+ (NEGATIVE); CALCIUM OXALATE CRYSTALS LARGE; COLOR, URINE YELLOW (YELLOW); GLUCOSE, URINE (UA) AUTO NEGATIVE (NEGATIVE); KETONE, URINE AUTO NEGATIVE (NEGATIVE); LEUKOCYTE ESTERASE, URINE AUTO 3+ (NEGATIVE); MUCUS, URINE SMALL (NEGATIVE); NITRITE, URINE AUTO NEGATIVE (NEGATIVE); PROTEIN, URINE AUTO NEGATIVE (NEGATIVE); RBC, URINE AUTO 9 /HPF (0-3); SPECIFIC GRAVITY URINE AUTO 1.011 (1.002-1.035); SQUAMOUS EPITHELIAL CELL UR AU 0 /HPF (0-6); UROBILINOGEN, URINE AUTO 0.2 mg/dL (0.0-2.0); WBC, URINE AUTO 93 /HPF (0-3)
== END ==
LOC: M LAB REF 12:51
PROVIDERS: ATTEND Internal Medicine
DX: Z87.440 Personal history of urinary (tract) infections (principal)